=== PATIENT | male | born 1950 | race Caucasian/White ===

== ENCOUNTER 2019-08-31 13:03 | Inpatient (IN) | payer MEDICARE, MEDICAID, SELFPAY ==
[2019-08-31] VITALS (10 sets, daily range): BP systolic 99–140; BP diastolic 62–78; PULSE 86–121; RESP 14–27; TEMP 37.3–39.6; O2SAT 90–100; BMI 29.8
--- NOTE | 2019-08-31 13:26 | XR_ITS ---
WS: [id number] Portable AP upright chest, 08/31/2019 Clinical Data: chest pain Comparison: Portable chest, 12/24/2018. Findings: No nodules, masses or effusions are seen. The heart is normal. The pulmonary vascularity is not increased. No pneumonia or pneumothorax is seen. The aortic arch and descending aorta are tortuo us. The patient has a poor inspiratory effort and there is minimal atelectasis over the surface of th e left diaphragm. XR/XR chest 1V portable [id number] Impression: Atherosclerosis.
[2019-08-31 15:48] LABS: Basophils # 0.1 10^3/uL (0.0-0.1); Basophils % 0.4 %; Eosinophils # 0.1 10^3/uL (0.0-0.8); Eosinophils % 0.7 %; Hematocrit 47.7 % (42.0-52.0); Hemoglobin 15.6 g/dL (11.7-16.6); Lymphocytes # 1.4 10^3/uL (0.8-4.8); Lymphocytes % 11.2 %; Mean Corpuscular HGB Conc 32.7 g/dL (30.0-36.0); Mean Corpuscular Hemoglobin 29.4 pg (28.0-34.0); Monocytes # 1.3 10^3/uL (0.2-0.9); Monocytes % 10.4 %; Neutrophils # 9.4 10^3/uL (1.8-7.7); Neutrophils % 76.8 %; Nucleated Red Blood Cells % 0 %; Platelet Count 171 10^3/cmm (130-400); Red Cell Distribution Width 12.7 % (12.1-15.1); White Blood Count 12.3 10^3/uL (4.0-10.0)
[2019-08-31 16:25] LABS: Alanine Aminotransferase 17 U/L (0-41); Albumin Level 4.3 g/dL (3.5-5.2); Alkaline Phosphatase 83 IU/L (40-130); Anion Gap 18.5 (5-19); Aspartate Amino Transferase 12 U/L (0-40); Blood Urea Nitrogen 18 mg/dL (8-23); Calcium 9.9 mg/dL (8.5-10.5); Carbon Dioxide 24 mmol/L (22-29); Chloride 92 mmol/L (98-107); Globulin 4.1 g/dL (1.3-4.6); Glomerular Filtration Rate 66.6 mL/min (90-130); Glucose 416 mg/dL (65-115); Osmolality Calculated 284 mOsm/kg (285-295); Potassium 4.5 mmol/L (3.5-5.1); Sodium 130 mmol/L (136-145); Total Bilirubin 0.5 mg/dL (0.15-1.2); Total Protein 8.4 g/dL (6.6-8.7)
--- NOTE | 2019-08-31 16:52 | CTR_ITS ---
PROCEDURE INFORMATION: Exam: CT Chest With Contrast Exam date and time: 08/31/2019 5:27 PM Age: 68 years old Clinical indication: Cough and shortness of breath; Prior surgery; Surgery date: 6+ months; Surgery type: Gb, colostomy, urostomy; Patient HX: Intermittent SOB, cough and fever - HX of bladder CA; Additional info: SOB, fever TECHNIQUE: Imaging protocol: Computed tomography of the chest with intravenous contrast. Radiation optimization: All CT scans at this facility use at least one of these dose optimization techniques: automated exposure control; mA and/or kV adjustment per patient size (includes targeted exams where dose is matched to clinical indication); or iterative reconstruction. Contrast material: OMNI 300; Contrast volume: 95 ml; Contrast route: 20G; COMPARISON: No relevant prior studies available. RADIATION DOSE METRICS: Total DLP: 2115.58 mGy-cm FINDINGS: Lungs: There is mild dependent atelectasis at the lung bases. There are findings of centrilobular emphysema in the apical regions. Pleural space: Unremarkable. No pneumothorax. No pleural effusion. Heart: There is moderate atherosclerotic calcification of the coronary arteries. Aorta: Unremarkable. No aortic aneurysm. Lymph nodes: Unremarkable. No enlarged lymph nodes. Bones/joints: Unremarkable. No acute fracture. Soft tissues: Unremarkable. IMPRESSION: No acute findings in the chest. No evidence for metastatic disease. PROCEDURE INFORMATION: Exam: CT Abdomen And Pelvis With Contrast Exam date and time: 08/31/2019 5:27 PM Age: 68 years old Clinical indication: Cough and shortness of breath; Prior surgery; Surgery date: 6+ months; Surgery type: Gb, colostomy, urostomy; Patient HX: Intermittent SOB, cough and fever - HX of bladder CA; Additional info: SOB, fever TECHNIQUE: Imaging protocol: Computed tomography of the abdomen and pelvis with intravenous contrast. Radiation optimization: All CT scans at this facility use at least one of these dose optimization techniques: automated exposure control; mA and/or kV adjustment per patient size (includes targeted exams where dose is matched to clinical indication); or iterative reconstruction. Contrast material: OMNI 300; Contrast volume: 95 ml; Contrast route: 20G; COMPARISON: CT abdomen pelvis w con* [id number] 10/09/2018 6:09:09 PM RADIATION DOSE METRICS: Total DLP: 2115.58 mGy-cm FINDINGS: Liver: There is no focal abnormality within the liver. Gallbladder and bile ducts: There has been a cholecystectomy. Pancreas: The pancreas is normal. Spleen: The spleen is normal. Adrenals: The adrenal glands are normal. Kidneys and ureters: There is some mild cortical scarring in the upper pole of the left kidney which is a change from the previous study and may represent the sequelae of prior pyelonephritis. There is new subtle cortical hypodensity in the in the lower pole of the right kidney. Findings are worrisome for mild focal pyelonephritis. Correlation with clinical findings is suggested. Stomach and bowel: There is a large right parastomal hernia containing loops of bowel without evidence of obstruction or incarceration. This is larger than previous. There is no evidence of colitis/diverticulitis. Appendix: Not identified Intraperitoneal space: There is no evidence of free intraperitoneal fluid. Vasculature: Unremarkable. No abdominal aortic aneurysm. Lymph nodes: There are small periaortic lymph nodes but no adenopathy in the abdomen or pelvis. Bladder: There has been a cystectomy, and there is a right abdominal ureterostomy/ileostomy. Reproductive: Unremarkable as visualized. Bones/joints: The lumbar spine demonstrates mild degenerative changes at multiple levels. Soft tissues: Unremarkable. CT/CT chest abd pel w con* IMPRESSION: 1. Possible pyelonephritis. 2. Parastomal hernia 3. No evidence for metastatic disease. Radiation Dose CTDIVOL = (mGy): DLP = 2115.58~2115.58 (mGy-cm)
[2019-08-31 17:35] LABS: Influenza A by IFA Negative (Negative); Influenza B by IFA Negative (Negative)
[2019-08-31] MEDS: iohexol 300 mg/mL 100 mL Btl IV (17:38)
[2019-08-31 18:05] LABS: Protein Urine Trace (Negative); Urine Appearance Clear (CLEAR); Urine Color Straw (Yellow); pH Urine 7 (5-7)
[2019-08-31 18:06] LABS: Add Urine Microscopic? YES; Bilirubin Urine Neg (NEGATIVE); Blood Urine 2+ (Negative); Glucose Urine UA 4+ (Normal); Ketones Urine Negative (Negative); Leukocyte Esterase Urine Trace (Negative); Nitrate Urine Negative (Negative); Urobilinogen Urine Norm (Negative)
[2019-08-31 18:07] LABS: Add Urine Culture? No; Bacteria Urine 1+; RBC Urine 0-4 /hpf (0-2)
[2019-08-31] MEDS: acetaminophen 325 mg Tablet 650 MG PO (18:13)
--- NOTE | 2019-08-31 19:25 | P.HP_ITS ---
Providers/Chief Complaint Primary Care Provider: Mian Back MD Chief Complaint: sob,cough,fever History of Present Illness Cole Troncoso is a 68 year old male who has history of poorly controlled type 2 diabetes, history of bladder cancer status post urostomy, came in today with chief complaint of nonproductive cough and fever. Patient is stating that his symptoms started about 3 to 4 weeks ago with dry cough, he has been feeling shortness of breath on exertion, he has not noticed swelling of his feet, he is denying orthopnea or PND, he is denying chest pain nausea or vomiting. Yesterday he started feeling more lethargic and spiked fever 102 at home. He does trading in his backyard and see a lot of people. He also have a parrot in his bedroom. He is stating that last time when he took Parrot out of his bedroom his dry cough improved. He quit smoking about 5 to 10 years ago, he lives with his brother. He is denying diarrhea or constipation, or abdominal pain. Recently he has had multiple visits to his PCP who has been trying to adjust his insulin because of persistent hyperglycemia, his his insulin long-acting dose has been increased to 40 units twice a day instead of 25 units twice a day. He was recently given a tetanus shot because of metal laceration to his arm. Diagnostics in the ER revealed sepsis due to pyelonephritis, he was given doxycycline and ceftriaxone. COVID was ordered CT abdomen revealed pyelonephritis with parastomal hernia When I saw him he was experiencing dry cough and because excessive cough urine was draining out of his urostomy bag. There was a tick which fell off from his back when he was in the CT scan, this tick was engorged with blood Review of Systems Const: Reports: fever(s), chills, body aches and fatigue Eyes: Denies: change in vision ENMT: Denies: throat pain Card: Denies: palpitations, syncope, dyspnea on exertion or orthopnea Resp: Reports: dyspnea and non-productive cough; Denies: productive cough GI: Reports: nausea; Denies: abdominal pain, vomiting, diarrhea or constipation : Denies: flank pain or difficulty urinating Musc: Denies: neck pain Skin/Breast: Reports: dry skin; Denies: rash Neuro: Denies: headache(s) Psych: Denies: anxiety Endo: Denies: polyuria Alfredo/Lymph: Denies: easy bruising All/Imm: Denies: urticaria Medications/Allergies Home Medications Medication Instructions Recorded Confirmed Last Taken Type duloxetine 30 mg capsule,delayed 90 mg PO DAILY cap 05/11/19 08/31/19 Unknown History release ipratropium bromide 42 mcg (0.06 2 spray INTRANASAL TID PRN 05/11/19 08/31/19 Unknown History %) nasal spray linagliptin 2.5 mg-metformin 1,000 1 tab PO BID 05/11/19 08/31/19 08/31/19 History mg tablet methenamine hippurate 1 gram tablet 1 gm PO BID 05/11/19 08/31/19 Unknown History ropinirole 4 mg tablet 8 mg PO BID tab 05/11/19 08/31/19 08/31/19 History insulin detemir U-100 100 unit/mL 40 unit SUBCUT BID #15 ml 06/15/19 08/31/19 08/31/19 Rx (3 mL) subcutaneous pen pregabalin 300 mg capsule 300 mg PO .at bedtime #90 cap 06/27/19 08/31/19 08/31/19 Rx hydrocodone-acetaminophen 1 tab PO PRN PRN 08/31/19 08/31/19 Unknown History Allergies Allergy/AdvReac Type Severity Reaction Status Date / Time Penicillins Allergy Unknown Verified 08/01/19 14:03 PFSH Acute PFSH: Medical History Diabetes mellitus History of bladder cancer Hx of intestinal obstruction PETER (obstructive sleep apnea) Surgical History History of cholecystectomy History of esophageal hernia repair History of shoulder surgery History of urostomy Family History Other Hypertension Social History Smoking and tobacco status: former smoker Alcohol intake: never Marital status: / Current occupational status: disabled History of recent travel: No Current gender identity: Male Vitals/I&O/Wt Last Vital Signs Temp 103.2 F H 08/31/19 16:53 Pulse 121 H 08/31/19 18:14 Resp 14 08/31/19 13:49 BP 140/78 08/31/19 18:14 Pulse Ox 94 08/31/19 18:14 Weight last 48 hrs Weight 99.79 kg Physical Exam Narrative: EXAM NARRATIVE: Head to toe examination Patient is in semi-almaraz position Saturating well on room air He has been experiencing dry hacking cough Because of coughing urine is spilling out of urostomy bag S1, S2, sinus tachycardia no signs of heart failure Abdomen is soft, distended, swelling around urostomy bag, spillage of urine around the bag noticed, nontender abdomen Lower extremity no signs of edema gangrene or ulcer EOMI, PERRLA neurologically nonfocal exam Bilateral diminished breath sounds, mild rhonchi at the bases No active respiratory distress Suntanned skin, no erythema marginum noted Face looks flushed Appropriate mood and affect Data : 08/31/19 15:35 08/31/19 15:35 Micro: Microbiology 08/31/19 15:35 Blood Culture - Preliminary Blood SPECIMEN COLLECTED A&P Assessment and plan (1) Sepsis: Sepsis criteria met with fever, tachycardia, leukocytosis, lactic acid has not been obtained in the ER He has been given ceftriaxone Left-sided pyelonephritis most likely source Rule out COVID Normal saline at 75 mL/h CT abdomen did not reveal colitis or ischemic bowel Urine and blood culture sent Doxycycline was added because of psittacosis concern and blood engorged tick that was fell off from his back during CT scan Status: Acute (2) Pyelonephritis: CT abdomen is revealing pyelonephritis No signs of colitis or ischemic bowel Continue antibiotics and fluid resuscitation for now Status: Acute (3) Parastomal hernia: No signs of obstruction or incarceration Dilatation of loops is worsening as compared to his previous imaging around the stoma, this probably is causing more spillage of urine because of change of anatomy around the urostomy bag Might need general surgery consult before discharge Status: Acute (4) Dry cough: Rule out COVID Patient is endorsing improvement of symptoms after removing parrot from his bedroom in the past Currently 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 DuoNeb as needed Status: Acute (5) Poorly controlled diabetes mellitus: I would continue 40 units of long-acting insulin twice a day along moderate dose sliding scale with consistent carb diet Check A1c level Status: Acute Additional A&P Information Consistent carbohydrate diet DVT prophylaxis: Lovenox Full code He will need ICU because of COVID isolation otherwise will need medical floor once it is ruled out Attestations Medical Necessity Statement*: Sepsis: Anticipating stay in the hospital to cross more than 2 midnights currently need IV ceftriaxone for pyonephritis, COVID needs to be ruled out, Because of isolation he will need ICU overnight Time Spent in Patient Care: (>than 50% of time spent in counselling and/or direct pt care on unit) . 60 Coding Level of Care Code Acute Radiology Supervisor for Chg Fwd Diagnoses Sepsis A41.9 Pyelonephritis N12 Parastomal hernia K43.5 Dry cough R05 Poorly controlled diabetes mellitus E11.65
[2019-08-31] MEDS: cefTRIAXone 1,000 MG in sodium chloride 0.9% (plus) 50 ML 100 MG IV (19:45)
[2019-08-31] MEDS: sodium chloride 0.9% 1,000 ML 100 ML IV (19:45)
[2019-08-31] MEDS: doxycycline 100 MG in sodium chloride 0.9% (plus) 100 ML IV (20:28)
--- NOTE | 2019-08-31 23:20 | ED_ITS ---
HPI - SOB/Dyspnea General: Chief Complaint: Shortness of Breath/Dyspnea Stated Complaint: sob,cough,fever Time Seen by Provider: 08/31/19 15:45 Source: patient and family Mode of arrival: ambulatory History of Present Illness: HPI Narrative: 68-year-old gentleman with a history of bladder cancer status post bladder resection and urostomy presents to the emergency department with a 3 or 4-week history of cough. The cough is said to be nonproductive. The cough is bothering him and he coughed several times during my evaluation. He also noticed that he was having a fever yesterday. He denies any contact with anyone with COVID-19, although he has multiple contacts with people daily. He is a former smoker MD elicited complaint: shortness of breath and cough Onset (ago): week(s) (4) Associated symptoms: Reports fever(s); Deny abdominal pain, nausea, palpitations, polydipsia, polyuria or vomiting Review of Systems General: Reports: 10 or more systems reviewed and unremarkable except in HPI and below Const: Reports: fever(s) and chills; Denies: body aches Eyes: Denies: change in vision or blurry vision ENMT: Denies: throat pain, enlarged tonsils, odynophagia, hoarseness, mouth pain or swelling of lips/tongue Card: Denies: palpitations, irregular heart rhythm, edema or swelling of feet/ankles Resp: Reports: dyspnea and non-productive cough; Denies: productive cough GI: Denies: abdominal pain, nausea or vomiting : Denies: flank pain, dysuria, urinary frequency, urinary urgency or urinary hesitancy Musc: Denies: neck pain, back pain or extremity swelling Skin/Breast: Denies: rash, pruritus or erythema Neuro: Denies: headache(s), numbness in extremities or weakness in extremities Endo: Denies: polyuria, polydipsia or tired all the time PFSH ED PFSH: Medical History Diabetes mellitus History of bladder cancer Hx of intestinal obstruction PETER (obstructive sleep apnea) Surgical History History of cholecystectomy History of esophageal hernia repair History of shoulder surgery History of urostomy Family History Other Hypertension Social History Smoking and tobacco status: former smoker Alcohol intake: never Marital status: / Current occupational status: disabled History of recent travel: No Current gender identity: Male Physical Exam Const: COMMON NORMALS: no acute distress, average body habitus, patient oriented x3, no limitations, healthy appearing, alert and well nourished HENMT: COMMON NORMALS: normocephalic, atraumatic and moist oral mucous m embranes HEAD & SCALP: normocephalic and atraumatic Eye: COMMON NORMALS: Equal, round and reactive pupils present, EOMs intact bilaterally, conjunctivae normal and no scleral icterus CONJUNCTIVA: Yes conjunctivae normal PUPIL: Yes Equal, round and reactive pupils present Neck/C-Spine: COMMON NORMALS: full ROM, supple, no meningeal signs, no JVD and No carotid bruits Resp: COMMON NORMALS: normal respiratory effort, No retractions, No use of accessory muscles, clear to auscultation bilaterally and percussion normal AUSCULTATION: clear to auscultation bilaterally PERCUSSION: percussion normal Cardio: COMMON NORMALS: no JVD, regular rate, regular rhythm, S1 normal heart sound present, S2 normal heart sound present, No gallops present (Cardio), No clicks present (Cardio), No murmurs present (Cardio), No rub (Cardio) and Peripheral pulses 2+ throughout RATE: regular rate RHYTHM: regular rhythm HEART SOUNDS: S1 normal heart sound present and S2 normal heart sound present PERIPHERAL PULSES: Peripheral pulses 2+ throughout GI: COMMON NORMALS: Normal to inspection, nondistended, normoactive bowel sounds present, Soft to palpation, non-tender, No hepatosplenomegaly present, no masses and no bruits INSPECTION: Yes GI ostomy present PALPATION: Yes Soft to palpation and Yes No hepatosplenomegaly present OTHER: Urostomy site on his right abdomen. There is leakage of foul-smelling urine : COMMON NORMALS: Yes no CVA tenderness BLADDER/KIDNEY EXAM: Yes no CVA tenderness Back/Pelvis: COMMON NORMALS: no CVA tenderness Extremity: COMMON NORMALS: normal to inspection, full ROM, capillary refill normal, no calf tenderness and no pedal edema Neuro: COMMON NORMALS: patient oriented x3 SENSORIUM/ORIENTATION: Yes alert MENINGEAL SIGNS: Yes no meningeal signs Skin: COMMON NORMALS: no rashes or lesions noted, no wounds, turgor normal, no jaundice, no petechiae and no mottling GENERAL SKIN EXAM: no rashes or lesions noted and turgor normal Course ED course: When the patient was being transferred from his bed to the CT table the central processing technician noted a fully engorged tick fall from the patient's perineal area. Reevaluation(s): Reevaluation #1: Discussed his lab and imaging findings with him. CT scan suggestive of a pyelonephritis. Because of his fever, high risk for COVID, high risk of a tickborne illness he is given a dose of intravenous ceftriaxone and doxycycline and he is going to be admitted. The patient voiced understanding and is in agreement with the plan Time: 19:15 Consultations: Consultation #1: Discussed the patient with Dr. Dewitt, hospitalist. He kindly accepted the patient to his service. Time: 19:23 Vital Signs: Vital signs: Vital Signs Temperature 99.1 F 08/31/19 23:02 Pulse Rate 86 08/31/19 23:02 Respiratory Rate 16 08/31/19 23:02 Blood Pressure 99/62 08/31/19 23:02 Pulse Oximetry 97 08/31/19 23:02 MDM - SOB/Dyspnea MDM Narrative: Medical decision making narrative: Patient who presents with cough and shortness of breath as well as a fever. He was noted to have an engorged tick on his person today in the emergency department. Evaluation is consistent with pyelonephritis. He is being admitted for further evaluation and management. Medical Records: Attestation: I reviewed the patient's medical records. Lab Data: Attestation: I reviewed the patient's lab results. Labs: Lab Results 08/31/19 08/31/19 08/31/19 Range/Units 15:35 15:35 16:41 WBC 12.3 H (4.0-10.0) 10^3/ uL RBC 5.30 (4.1-5.3) 10^6/u L Hgb 15.6 (11.7-16.6) g/dL Hct 47.7 (42.0-52.0) % MCV 90.0 (80-94) fL MCH 29.4 (28.0-34.0) pg MCHC 32.7 (30.0-36.0) g/dL RDW 12.7 (12.1-15.1) % Plt Count 171 (130-400) 10^3/c mm MPV 11.0 H (7.4-10.4) fL Neut % (Auto) 76.8 % Lymph % (Auto) 11.2 % Wallace % (Auto) 10.4 % Eos % (Auto) 0.7 % Baso % (Auto) 0.4 % Neut # (Auto) 9.4 H (1.8-7.7) 10^3/u L Lymph # (Auto) 1.4 (0.8-4.8) 10^3/u L Wallace # (Auto) 1.3 H (0.2-0.9) 10^3/u L Eos # (Auto) 0.1 (0.0-0.8) 10^3/u L Baso # (Auto) 0.1 (0.0-0.1) 10^3/u L Nucleated RBC % (a uto) 0 % Nucleated RBCs # 0.0 /100WBC Sodium 130 L (136-145) mmol/L Potassium 4.5 (3.5-5.1) mmol/L Chloride 92 L (98-107) mmol/L Carbon Dioxide 24 (22-29) mmol/L Anion Gap 18.5 (5-19) BUN 18 (8-23) mg/dL Creatinine 1.1 (0.7-1.2) mg/dL GFR Calculation 66.6 L (90-130) mL/min Glucose 416 H (65-115) mg/dL Calculated Osmolal ity 284 L (285-295) mOsm/k g Calcium 9.9 (8.5-10.5) mg/dL Total Bilirubin 0.5 (0.15-1.2) mg/dL AST 12 (0-40) U/L ALT 17 (0-41) U/L Alkaline Phosphata se 83 (40-130) IU/L Total Protein 8.4 (6.6-8.7) g/dL Albumin 4.3 (3.5-5.2) g/dL Globulin 4.1 (1.3-4.6) g/dL Urine Color (Yellow) Urine Appearance (CLEAR) Urine pH (5-7) Ur Specific Gravit y (1.005-1.030) Urine Protein (Negative) Urine Glucose (UA) (Normal) Urine Ketones (Negative) Urine Blood (Negative) Urine Nitrate (Negative) Urine Bilirubin (NEGATIVE) Urine Urobilinogen (Negative) mg/dL Ur Leukocyte Teodora ase (Negative) Urine RBC (0-2) /hpf Urine WBC (0-5) /hpf Ur Squamous Epith Cells (0-5) Urine Bacteria (NONE) Influenza Type A A g Negative (Negative) Influenza Type B A g Negative (Negative) 08/31/19 Range/Units 17:05 WBC (4.0-10.0) 10^3/ uL RBC (4.1-5.3) 10^6/u L Hgb (11.7-16.6) g/dL Hct (42.0-52.0) % MCV (80-94) fL MCH (28.0-34.0) pg MCHC (30.0-36.0) g/dL RDW (12.1-15.1) % Plt Count (130-400) 10^3/c mm MPV (7.4-10.4) fL Neut % (Auto) % Lymph % (Auto) % Wallace % (Auto) % Eos % (Auto) % Baso % (Auto) % Neut # (Auto) (1.8-7.7) 10^3/u L Lymph # (Auto) (0.8-4.8) 10^3/u L Wallace # (Auto) (0.2-0.9) 10^3/u L Eos # (Auto) (0.0-0.8) 10^3/u L Baso # (Auto) (0.0-0.1) 10^3/u L Nucleated RBC % (a uto) % Nucleated RBCs # /100WBC Sodium (136-145) mmol/L Potassium (3.5-5.1) mmol/L Chloride (98-107) mmol/L Carbon Dioxide (22-29) mmol/L Anion Gap (5-19) BUN (8-23) mg/dL Creatinine (0.7-1.2) mg/dL GFR Calculation (90-130) mL/min Glucose (65-115) mg/dL Calculated Osmolal ity (285-295) mOsm/k g Calcium (8.5-10.5) mg/dL Total Bilirubin (0.15-1.2) mg/dL AST (0-40) U/L ALT (0-41) U/L Alkaline Phosphata se (40-130) IU/L Total Protein (6.6-8.7) g/dL Albumin (3.5-5.2) g/dL Globulin (1.3-4.6) g/dL Urine Color Straw (Yellow) Urine Appearance Clear (CLEAR) Urine pH 7 (5-7) Ur Specific Gravit y 1.010 (1.005-1.030) Urine Protein Trace (Negative) Urine Glucose (UA) 4+ H (Normal) Urine Ketones Negative (Negative) Urine Blood 2+ H (Negative) Urine Nitrate Negative (Negative) Urine Bilirubin Neg (NEGATIVE) Urine Urobilinogen Norm (Negative) mg/dL Ur Leukocyte Teodora ase Trace H (Negative) Urine RBC 0-4 H (0-2) /hpf Urine WBC 5-10 H (0-5) /hpf Ur Squamous Epith Cells None (0-5) Urine Bacteria 1+ H (NONE) Influenza Type A A g (Negative) Influenza Type B A g (Negative) Imaging Data^: CXR: Radiologist's impression: [address] [address] XRay Report Signed Patient: Josiah Troncoso #: [id number] : [id number] Age/Sex: 68 / MADM Date: 08/31/19 Loc: ERRoom/Bed: Attending Dr: Ordering Provider/Ordering MD: Gladys Taylor Date of Service: 08/31/19 Procedure(s): XR chest 1V portable [id number] Accession Number(s): [id number] Report Number: [id number] WS: [id number] Portable AP upright chest, 08/31/2019 Clinical Data: chest pain Comparison: Portable chest, 12/24/2018. Findings: No nodules, masses or effusions are seen. The heart is normal. The pulmonary vascularity is not increased. No pneumonia or pneumothorax is seen. The aortic arch and descending aorta are tortuous. The patient has a poor inspiratory effort and there is minimal atelectasis over the surface of the left diaphragm. XR/XR chest 1V portable [id number] Impression: Atherosclerosis. Dictated By:Anuja Paul MD Signed By:Anuja Paul MDSigned Date/Time:08/31/19 1341 DD/ 1340 CT Abd/Pel: Radiologist's impression: [address] [address] [address] Scan Report Signed Patient: Josiah Troncoso #: [id number] : 1950cct#:[id number] Age/Sex: 68 / MADM Date: 08/31/19 Loc: ERRoom/Bed: Attending Dr: Ordering Provider/Ordering MD: Jonathon Lopez MD, [facility] Date of Service: 08/31/19 Procedure(s): CT chest abd pel w con* Accession Number(s): [id number] Report Number: [id number] PROCEDURE INFORMATION: Exam: CT Chest With Contrast Exam date and time: 08/31/2019 5:27 PM Age: 68 years old Clinical indication: Cough and shortness of breath; Prior surgery; Surgery date: 6+ months; Surgery type: Gb, colostomy, urostomy; Patient HX: Intermittent SOB, cough and fever - HX of bladder CA; Additional info: SOB, fever TECHNIQUE: Imaging protocol: Computed tomography of the chest with intravenous contrast. Radiation optimization: All CT scans at this facility use at least one of these dose optimization techniques: automated exposure control; mA and/or kV adjustment per patient size (includes targeted exams where dose is matched to clinical indication); or iterative reconstruction. Contrast material: OMNI 300; Contrast volume: 95 ml; Contrast route: 20G; COMPARISON: No relevant prior studies available. RADIATION DOSE METRICS: Total DLP: 2115.58 mGy-cm FINDINGS: Lungs: There is mild dependent atelectasis at the lung bases. There are findings of centrilobular emphysema in the apical regions. Pleural space: Unremarkable. No pneumothorax. No pleural effusion. Heart: There is moderate atherosclerotic calcification of the coronary arteries. Aorta: Unremarkable. No aortic aneurysm. Lymph nodes: Unremarkable. No enlarged lymph nodes. Bones/joints: Unremarkable. No acute fracture. Soft tissues: Unremarkable. IMPRESSION: No acute findings in the chest. No evidence for metastatic disease. PROCEDURE INFORMATION: Exam: CT Abdomen And Pelvis With Contrast Exam date and time: 08/31/2019 5:27 PM Age: 68 years old Clinical indication: Cough and shortness of breath; Prior surgery; Surgery date: 6+ months; Surgery type: Gb, colostomy, urostomy; Patient HX: Intermittent SOB, cough and fever - HX of bladder CA; Additional info: SOB, fever TECHNIQUE: Imaging protocol: Computed tomography of the abdomen and pelvis with intravenous contrast. Radiation optimization: All CT scans at this facility use at least one of these dose optimization techniques: automated exposure control; mA and/or kV adjustment per patient size (includes targeted exams where dose is matched to clinical indication); or iterative reconstruction. Contrast material: OMNI 300; Contrast volume: 95 ml; Contrast route: 20G; COMPARISON: CT abdomen pelvis w con* [id number] 10/09/2018 6:09:09 PM RADIATION DOSE METRICS: Total DLP: 2115.58 mGy-cm FINDINGS: Liver: There is no focal abnormality within the liver. Gallbladder and bile ducts: There has been a cholecystectomy. Pancreas: The pancreas is normal. Spleen: The spleen is normal. Adrenals: The adrenal glands are normal. Kidneys and ureters: There is some mild cortical scarring in the upper pole of the left kidney which is a change from the previous study and may represent the sequelae of prior pyelonephritis. There is new subtle cortical hypodensity in the in the lower pole of the right kidney. Findings are worrisome for mild focal pyelonephritis. Correlation with clinical findings is suggested. Stomach and bowel: There is a large right parastomal hernia containing loops of bowel without evidence of obstruction or incarceration. This is larger than previous. There is no evidence of colitis/diverticulitis. Appendix: Not identified Intraperitoneal space: There is no evidence of free intraperitoneal fluid. Vasculature: Unremarkable. No abdominal aortic aneurysm. Lymph nodes: There are small periaortic lymph nodes but no adenopathy in the abdomen or pelvis. Bladder: There has been a cystectomy, and there is a right abdominal ureterostomy/ileostomy. Reproductive: Unremarkable as visualized. Bones/joints: The lumbar spine demonstrates mild degenerative changes at multiple levels. Soft tissues: Unremarkable. CT/CT chest abd pel w con* IMPRESSION: 1. Possible pyelonephritis. 2. Parastomal hernia 3. No evidence for metastatic disease. Radiation Dose CTDIVOL = (mGy): DLP = 2115.58~2115.58 (mGy-cm) Dictated By:Dennis Peralta Signed By:Joon Peraltaigned Date/Time:08/31/191910 DD/ 08 Discharge Plan Discharge Patient Disposition: Admitted As Inpatient Admit Provider: Costa Dewitt Clinical Impression: Sepsis, Pyelonephritis, At high risk for tick borne illness Condition: Stable Interventions: ED Discharge Assessment Last Done: 08/31/19 23:09 ED Charges Last Done: 08/31/19 23:11 Discharge Date/Time: 08/31/19 23:34 Coding Level of Care Code ED Perforating Machine Operator for Osiris Ansari
[2019-09-01] VITALS (94 sets, daily range): BP systolic 74–166; BP diastolic 53–91; PULSE 82–123; RESP 14–34; TEMP 36.8–39.4; O2SAT 88–98
[2019-09-01] MEDS: sodium chloride 0.9% 1,000 ML 75 ML IV ×2 (00:20→09:40)
[2019-09-01 00:55] LABS: Glucose Point of Care 288 mg/dL (70-110)
[2019-09-01] MEDS: enoxaparin 40 mg/0.4 mL Syringe SUBCUT (00:55)
[2019-09-01] MEDS: pregabalin 150 mg Capsule 300 MG PO ×2 (00:56→20:22)
[2019-09-01 00:57] LABS: Estmated Average Glucose 283; Hemoglobin A1C 11.5 % (4.0-6.0)
[2019-09-01] MEDS: acetaminophen 500 mg Tablet PO (01:22)
[2019-09-01] MEDS: sodium chloride 0.9% 500 ML IV (01:22)
[2019-09-01 06:00] LABS: Basophils # 0.1 10^3/uL (0.0-0.1); Basophils % 0.4 %; Eosinophils # 0.1 10^3/uL (0.0-0.8); Eosinophils % 0.6 %; Lymphocytes # 1.7 10^3/uL (0.8-4.8); Mean Corpuscular HGB Conc 32.6 g/dL (30.0-36.0); Mean Corpuscular Hemoglobin 29.7 pg (28.0-34.0); Mean Corpuscular Volume 91.1 fL (80-94); Mean Platelet Volume 10.9 fL (7.4-10.4); Monocytes # 1.3 10^3/uL (0.2-0.9); Monocytes % 8.8 %; Neutrophils # 11.1 10^3/uL (1.8-7.7); Neutrophils % 77.7 %; Nucleated Red Blood Cells % 0 %; Platelet Count 145 10^3/cmm (130-400); Red Blood Count 5.05 10^6/uL (4.1-5.3); Red Cell Distribution Width 12.9 % (12.1-15.1); White Blood Count 14.2 10^3/uL (4.0-10.0)
[2019-09-01 06:25] LABS: Blood Urea Nitrogen 20 mg/dL (8-23); Calcium 9.2 mg/dL (8.5-10.5); Carbon Dioxide 22 mmol/L (22-29); Chloride 99 mmol/L (98-107); Glomerular Filtration Rate 54.9 mL/min (90-130); Glucose 228 mg/dL (65-115); Osmolality Calculated 282 mOsm/kg (285-295); Sodium 134 mmol/L (136-145)
[2019-09-01 07:34] LABS: Procalcitonin 1.35 ng/mL (0-0.5)
[2019-09-01 07:45] LABS: Ferritin 146 ng/mL (30-400); Lactate Dehydrogenase 213 U/L (135-225)
[2019-09-01 07:56] LABS: Glucose Point of Care 255 mg/dL (70-110)
[2019-09-01] MEDS: duloxetine 30 mg Capsule 90 MG PO (09:40)
[2019-09-01] MEDS: cefTRIAXone 1,000 MG in sodium chloride 0.9% (plus) 50 ML 100 MG IV (09:40)
[2019-09-01] MEDS: doxycycline 100 mg Tablet PO ×2 (09:40→17:33)
[2019-09-01] MEDS: ropinirole 2 mg Tablet 8 MG PO ×2 (09:40→17:33)
--- NOTE | 2019-09-01 12:04 | PM.PN ---
Subjective Subjective: Interval history: Chart reviewed, patient febrile throughout the night with a T-max of 103.2, blood pressure stable, tachycardic, on 2 L nasal cannula. Had 1000 mL urine output overnight. Noted slight increase in leukocytosis, slight increase in creatinine to 1.3. COVID-19 testing negative, will discontinue isolation precautions. Medications: Reviewed: Yes Medication Review Details: Active Medications Generic Name Dose Route Start Last Admin Trade Name Freq PRN Reason Stop Dose Admin Acetaminophen 500 mg 09/01/19 01:09 09/01/19 01:22 Tylenol PO 500 mg Q6H PRN Administration MILD PAIN OR INCR EASE TEMP Hydrocodone Bitart /Acetaminophen 1 tab 09/01/19 00:09 York 5-325 Mg PO PRN PRN Pain Albuterol/Ipratrop ium 3 ml 09/01/19 00:09 Duoneb INHALATION Q4H.RESPIRATORY P RN SHORTNESS OF PRIYANKA TH Dextrose 25 ml 09/01/19 00:09 D50w IVP ONCE PRN hypoglycemia prot ocol Protocol Dextrose 50 ml 09/01/19 00:09 D50w IVP PRN PRN hypoglycemia prot ocol Protocol Doxycycline Monohy drate 100 mg 09/01/19 09:00 09/01/19 09:40 Vibramycin PO 100 mg BID RAFAELA Administration Protocol Duloxetine HCl 90 mg 09/01/19 09:00 09/01/19 09:40 Cymbalta PO 90 mg DAILY RAFAELA Administration Enoxaparin Sodium 40 mg 09/01/19 00:09 09/01/19 00:55 Lovenox SUBCUT 40 mg Q24H RAFAELA Administration Glucagon 1 mg 09/01/19 00:09 Glucagen IM ONCE PRN Adult Acute Hypog lycemia Prot. Protocol Sodium Chloride 1,000 mls @ 100 m ls/hr 08/31/19 19:30 08/31/19 19:45 Sodium Chloride 0.9% IV 100 mls/hr .Q10H RAFAELA Administration Ceftriaxone Sodium 1,000 mg/ 50 mls @ 100 mls/ hr 09/01/19 09:00 09/01/19 09:40 Sodium Chloride IV 100 mls/hr DAILY RAFAELA Administration Protocol Dextrose 500 mls @ 100 mls /hr 09/01/19 00:09 D5w IV ONCE PRN Adult Acute Hypog lycemia Prot Protocol Sodium Chloride 1,000 mls @ 75 ml s/hr 09/01/19 00:09 09/01/19 09:40 Sodium Chloride 0.9% IV 75 mls/hr .[id number] RAFAELA Administration Norepinephrine Bit artrate 4 mg 254 mls @ 0 mls/h r 09/01/19 01:15 / Dextrose IV .Q0M RAFAELA Protocol Per Protocol Insulin Aspart 0 unit 09/01/19 00:09 09/01/19 08:14 Novolog SUBCUT 8 unit WM&BEDTIME RAFAELA Administration Protocol Insulin Detemir 40 unit 09/01/19 09:00 09/01/19 09:41 Levemir SUBCUT 40 unit BID RAFAELA Administration Morphine Sulfate 2 mg 08/31/19 19:27 Morphine IVP Q4H PRN SEVERE PAIN Pregabalin 300 mg 09/01/19 00:09 09/01/19 00:56 Lyrica PO 300 mg BEDTIME RAFAELA Administration Ropinirole HCl 8 mg 09/01/19 09:00 09/01/19 09:40 Requip PO 8 mg BID RAFAELA Administration Penicillins Allergy (Verified 08/01/19 14:03) Unknown Vitals/I&O/Wt Last Vital Signs Temp 100.1 F H 09/01/19 07:00 Pulse 111 H 09/01/19 07:48 Resp 18 09/01/19 07:48 BP 132/72 09/01/19 07:00 Pulse Ox 93 09/01/19 07:48 08/31/19 09/01/19 09/01/19 22:59 06:59 14:59 Intake Total 480 / 480 700 / 700 Output Total 1000 / 1000 Balance -520 / -520 700 / 700 Weight last 48 hrs Weight 99.79 kg Physical Exam Const: COMMON NORMALS: no acute distress and patient oriented x3 GENERAL APPEARANCE: cooperative and comfortable ORIENTATION/CONSCIOUSNESS: Yes awake OTHER: -Appears fatigued and somewhat ill-appearing HENMT: COMMON NORMALS: normocephalic, atraumatic, hearing grossly normal bilaterally and moist oral mucous membranes HEAD & SCALP: normocephalic and atraumatic Eye: COMMON NORMALS: Equal, round and reactive pupils present, EOMs intact bilaterally and conjunctivae normal CONJUNCTIVA: Yes conjunctivae normal PUPIL: Yes Equal, round and reactive pupils present Neck/C-Spine: COMMON NORMALS: full ROM GENERAL: Yes normal visual inspection and Yes trachea midline Chest: CHEST: Yes Symmetrical chest wall rise Resp: COMMON NORMALS: normal respiratory effort, No retractions, No use of accessory muscles and clear to auscultation bilaterally EFFORT & INSPECTION: Yes able to speak in complete sentences, Yes symmetric chest movement and Yes tachypneic AUSCULTATION: clear to auscultation bilaterally OTHER: -on 2 L NC Cardio: COMMON NORMALS: regular rhythm, S1 normal heart sound present, S2 normal heart sound present and No murmurs present (Cardio) RATE: tachycardic RHYTHM: regular rhythm HEART SOUNDS: S1 normal heart sound present and S2 normal heart sound present GI: COMMON NORMALS: Normal to inspection, nondistended, normoactive bowel sounds present, Soft to palpation and non-tender PALPATION: Yes Soft to palpation : BLADDER/KIDNEY EXAM: Yes catheter in place Catheter type (Male): urostomy Extremity: COMMON NORMALS: normal to inspection, full ROM, no clubbing, cyanosis or edema and no pedal edema Neuro: COMMON NORMALS: patient oriented x3, moves all extremities, no focal motor deficits and no sensory deficits noted Psych: COMMON NORMALS: mental status grossly normal, Normal thought process present, cooperative, normal affect and speech normal SPEECH: Yes normal speech THOUGHT PROCESS: Normal thought process present Skin: COMMON NORMALS: no rashes or lesions noted, no jaundice, no petechiae and no mottling GENERAL SKIN EXAM: no rashes or lesions noted Data : 09/01/19 05:30 09/01/19 05:30 Micro: Microbiology 08/31/19 15:35 Blood Culture - Preliminary Blood SPECIMEN COLLECTED A&P Assessment and plan (1) Pyelonephritis: -UA indicative of infection -evidence of mild focal R pyelonephritis on CT -f/u urine cx -blood cx: 2/2 bottles positive for GNRs; order repeat set -associated sepsis given tachycardia, leukocytosis, fever, pro-calcitonin elevated (1.35) -continue to monitor vital signs -trend WBC -has urostomy secondary to hx of bladder cancer; monitor urine output -continue Ceftriaxone -on IVF Status: Acute (2) Sepsis: -as noted above Status: Acute Qualifiers: Sepsis acute organ dysfunction status: without acute organ dysfunction Sepsis type: sepsis due to unspecified organism Qualified Code(s): A41.9 - Sepsis, unspecified organism (3) Dry cough: -ongoing respiratory symptoms x 3-4 weeks in addition to fever -COVID-19 testing negative; d/c isolation precautions Status: Acute (4) At high risk for tick borne illness: -engorged tick removed from his back while getting CT done -tick panel ordered -on Doxycycline Status: Acute (5) Acute kidney injury: -JULY superimposed on CKD stage 2 -baseline Cr wnl -likely secondary to dehydration, infection -continue to monitor renal function, avoid nephrotoxins, renally dose meds -on IVF Status: Acute (6) Poorly controlled diabetes mellitus: -hx of IDDM type II, uncontrolled, complicated by peripheral neuropathy and nephropathy -A1c-11.5 -Accuchecks, ISS, hypoglycemia precautions -anticipate hyperglycemia with infection -consistent carb diet as tolerated Status: Chronic (7) PETER (obstructive sleep apnea): Status: Chronic (8) Obesity (BMI 30.0-34.9): Status: Chronic Additional A&P Information -DVT ppx with Lovenox -Dispo: home -Code status: FULL code -ICU care due to sepsis with need for close hemodynamic status monitoring, low threshold for decompensation Attestations Medical Necessity Statement*: Patient requires hospitalization for continued management of pyelonephritis with associated sepsis including IV fluid hydration, broad-spectrum IV antibiotics, COVID-19 testing, close monitoring of hemodynamic status. Time Spent in Patient Care: Greater than 35 minutes (>than 50% of time spent in counselling and/or direct pt care on unit). Coding Level of Care Code Acute Lithograph Press Feeder for g Fwd Exam Comprehensive Diagnoses Pyelonephritis N12 Sepsis A41.9 Sepsis acute organ dysfunction status: without acute organ dysfunction Sepsis type: sepsis due to unspecified organism Dry cough R05 At high risk for tick borne illness Z91.89 Acute kidney injury N17.9 Poorly controlled diabetes mellitus E11.65 PETER (obstructive sleep apnea) G47.33 Obesity (BMI 30.0-34.9) E66.9
[2019-09-01 12:40] LABS: Glucose Point of Care 271 mg/dL (70-110)
[2019-09-01] MEDS: sodium chloride 0.9% 1,000 ML 100 ML IV ×2 (15:30→22:30)
[2019-09-01 16:42] LABS: Glucose Point of Care 265 mg/dL (70-110)
[2019-09-01 19:38] LABS: Glucose Point of Care 259 mg/dL (70-110)
[2019-09-02] VITALS (22 sets, daily range): BP systolic 83–124; BP diastolic 49–75; PULSE 75–85; RESP 16–26; TEMP 36.4–36.8; O2SAT 92–98
[2019-09-02] MEDS: enoxaparin 40 mg/0.4 mL Syringe SUBCUT
[2019-09-02 05:06] LABS: Basophils # 0.1 10^3/uL (0.0-0.1); Basophils % 0.6 %; Eosinophils # 0.2 10^3/uL (0.0-0.8); Eosinophils % 1.4 %; Hematocrit 42.7 % (42.0-52.0); Hemoglobin 13.7 g/dL (11.7-16.6); Lymphocytes # 1.7 10^3/uL (0.8-4.8); Lymphocytes % 15.9 %; Mean Corpuscular HGB Conc 32.1 g/dL (30.0-36.0); Mean Corpuscular Hemoglobin 29.3 pg (28.0-34.0); Mean Corpuscular Volume 91.2 fL (80-94); Mean Platelet Volume 11.6 fL (7.4-10.4); Monocytes # 1.5 10^3/uL (0.2-0.9); Monocytes % 13.9 %; Neutrophils # 7.3 10^3/uL (1.8-7.7); Neutrophils % 67.9 %; Nucleated Red Blood Cells % 0 %; Platelet Count 139 10^3/cmm (130-400); Red Blood Count 4.68 10^6/uL (4.1-5.3); Red Cell Distribution Width 12.9 % (12.1-15.1); White Blood Count 10.8 10^3/uL (4.0-10.0)
[2019-09-02 05:23] LABS: Blood Urea Nitrogen 25 mg/dL (8-23); Calcium 8.6 mg/dL (8.5-10.5); Carbon Dioxide 19 mmol/L (22-29); Chloride 105 mmol/L (98-107); Glomerular Filtration Rate 74.3 mL/min (90-130); Glucose 197 mg/dL (65-115); Osmolality Calculated 282 mOsm/kg (285-295); Sodium 135 mmol/L (136-145)
[2019-09-02 07:26] LABS: Glucose Point of Care 151 mg/dL (70-110)
[2019-09-02] MEDS: cefTRIAXone 1,000 MG in sodium chloride 0.9% (plus) 50 ML 100 MG IV (08:28)
[2019-09-02] MEDS: ropinirole 2 mg Tablet 8 MG PO ×2 (08:29→18:28)
[2019-09-02] MEDS: doxycycline 100 mg Tablet PO ×2 (08:29→18:17)
[2019-09-02] MEDS: duloxetine 30 mg Capsule 90 MG PO (08:29)
[2019-09-02 11:23] LABS: Glucose Point of Care 186 mg/dL (70-110)
[2019-09-02] MEDS: sodium chloride 0.9% 1,000 ML 100 ML IV ×2 (11:38→21:45)
--- NOTE | 2019-09-02 15:38 | PM.PN ---
Subjective Subjective: Interval history: Had 800 mL urine output overnight, afebrile, low to low normal BP, on 2 L NC. Decreasing leukocytosis, improved Cr. Accucheks noted. Has been sitting up in a chair for most of the afternoon, much more alert and engages in conversation much easier today, reports feeling better. Has not required pressor support though BP has been on low normal range. Urine cultures growing gram-negative rods as well as a 2 out of 2 bottles of initial blood culture set, still pending ID and sensitivity. Repeat set of blood cultures is pending. Medications: Reviewed: Yes Medication Review Details: Active Medications Generic Name Dose Route Start Last Admin Trade Name Freq PRN Reason Stop Dose Admin Acetaminophen 500 mg 09/01/19 01:09 09/01/19 01:22 Tylenol PO 500 mg Q6H PRN Administration MILD PAIN OR INCR EASE TEMP Hydrocodone Bitart /Acetaminophen 1 tab 09/01/19 00:09 [place] 5-325 Mg PO PRN PRN Pain Albuterol/Ipratrop ium 3 ml 09/01/19 00:09 Duoneb INHALATION Q4H.RESPIRATORY P RN SHORTNESS OF PRIYANKA TH Dextrose 25 ml 09/01/19 00:09 D50w IVP ONCE PRN hypoglycemia prot ocol Protocol Dextrose 50 ml 09/01/19 00:09 D50w IVP PRN PRN hypoglycemia prot ocol Protocol Doxycycline Monohy drate 100 mg 09/01/19 09:00 09/02/19 08:29 Vibramycin PO 100 mg BID RAFAELA Administration Protocol Duloxetine HCl 90 mg 09/01/19 09:00 09/02/19 08:29 Cymbalta PO 90 mg DAILY RAFAELA Administration Enoxaparin Sodium 40 mg 09/01/19 00:09 09/02/19 00:00 Lovenox SUBCUT 40 mg Q24H RAFAELA Administration Glucagon 1 mg 09/01/19 00:09 Glucagen IM ONCE PRN Adult Acute Hypog lycemia Prot. Protocol Sodium Chloride 1,000 mls @ 100 m ls/hr 08/31/19 19:30 09/02/19 11:38 Sodium Chloride 0.9% IV 100 mls/hr .Q10H RAFAELA Administration Ceftriaxone Sodium 1,000 mg/ 50 mls @ 100 mls/ hr 09/01/19 09:00 09/02/19 08:28 Sodium Chloride IV 100 mls/hr DAILY RAFAELA Administration Protocol Dextrose 500 mls @ 100 mls /hr 09/01/19 00:09 D5w IV ONCE PRN Adult Acute Hypog lycemia Prot Protocol Norepinephrine Bit artrate 4 mg 254 mls @ 0 mls/h r 09/01/19 01:15 / Dextrose IV .Q0M RAFAELA Protocol Per Protocol Insulin Aspart 0 unit 09/01/19 00:09 09/02/19 11:38 Novolog SUBCUT 6 unit WM&BEDTIME RAFAELA Administration Protocol Insulin Detemir 40 unit 09/01/19 09:00 09/02/19 08:29 Levemir SUBCUT 40 unit BID RAFAELA Administration Morphine Sulfate 2 mg 08/31/19 19:27 Morphine IVP Q4H PRN SEVERE PAIN Pregabalin 300 mg 09/01/19 00:09 09/01/19 20:22 Lyrica PO 300 mg BEDTIME RAFAELA Administration Ropinirole HCl 8 mg 09/01/19 09:00 09/02/19 08:29 Requip PO 8 mg BID RAFAELA Administration Penicillins Allergy (Verified 08/01/19 14:03) Unknown Vitals/I&O/Wt Last Vital Signs Temp 97.7 F 09/02/19 08:00 Pulse 82 09/02/19 09:00 Resp 19 H 09/02/19 09:00 BP 83/49 09/02/19 09:00 Pulse Ox 97 09/02/19 09:00 09/02/19 09/02/19 09/02/19 06:59 14:59 22:59 Intake Total 1480 / 1480 Output Total 350 / 2050 Balance -350 / 1857.5 1480 / 1480 Physical Exam Const: COMMON NORMALS: no acute distress and patient oriented x3 GENERAL APPEARANCE: cooperative and comfortable ORIENTATION/CONSCIOUSNESS: Yes awake OTHER: -Appears fatigued and somewhat ill-appearing HENMT: COMMON NORMALS: normocephalic, atraumatic, hearing grossly normal bilaterally and moist oral mucous membranes HEAD & SCALP: normocephalic and atraumatic Eye: COMMON NORMALS: Equal, round and reactive pupils present, EOMs intact bilaterally and conjunctivae normal CONJUNCTIVA: Yes conjunctivae normal PUPIL: Yes Equal, round and reactive pupils present Neck/C-Spine: COMMON NORMALS: full ROM GENERAL: Yes normal visual inspection and Yes trachea midline Chest: CHEST: Yes Symmetrical chest wall rise Resp: COMMON NORMALS: normal respiratory effort, No retractions, No use of accessory muscles and clear to auscultation bilaterally EFFORT & INSPECTION: Yes able to speak in complete sentences, Yes symmetric chest movement and Yes tachypneic AUSCULTATION: clear to auscultation bilaterally OTHER: -on 2 L NC Cardio: COMMON NORMALS: regular rhythm, S1 normal heart sound present, S2 normal heart sound present and No murmurs present (Cardio) RATE: tachycardic RHYTHM: regular rhythm HEART SOUNDS: S1 normal heart sound present and S2 normal heart sound present GI: COMMON NORMALS: Normal to inspection, nondistended, normoactive bowel sounds present, Soft to palpation and non-tender PALPATION: Yes Soft to palpation : BLADDER/KIDNEY EXAM: Yes catheter in place Extremity: COMMON NORMALS: normal to inspection, full ROM, no clubbing, cyanosis or edema and no pedal edema Neuro: COMMON NORMALS: patient oriented x3, moves all extremities, no focal motor deficits and no sensory deficits noted Psych: COMMON NORMALS: mental status grossly normal, Normal thought process present, cooperative, normal affect and speech normal SPEECH: Yes normal speech THOUGHT PROCESS: Normal thought process present Skin: COMMON NORMALS: no rashes or lesions noted, no jaundice, no petechiae and no mottling GENERAL SKIN EXAM: no rashes or lesions noted Data : 09/02/19 03:50 09/02/19 03:50 Micro: Microbiology 08/31/19 17:05 Urine Culture - Preliminary Urine,Clean Catch Gram Negative Rods 09/01/19 22:31 Blood Culture - Preliminary Blood SPECIMEN COLLECTED 09/01/19 22:23 Blood Culture - Preliminary Blood SPECIMEN COLLECTED 08/31/19 15:35 Blood Culture - Preliminary Blood Gram Negative Rods A&P Assessment and plan (1) Pyelonephritis: -UA indicative of infection -evidence of mild focal R pyelonephritis on CT -f/u urine cx: GNRs, pending ID & sensitivity -blood cx: 2/2 bottles positive for GNRs; repeat set pending -associated sepsis given tachycardia, leukocytosis, fever, pro-calcitonin elevated (1.35) -continue to monitor vital signs -trend WBC -has urostomy secondary to hx of bladder cancer; continue to monitor urine output -continue Ceftriaxone -on IVF Status: Acute (2) Sepsis: -as noted above Status: Acute Qualifiers: Sepsis acute organ dysfunction status: without acute organ dysfunction Sepsis type: sepsis due to unspecified organism Qualified Code(s): A41.9 - Sepsis, unspecified organism (3) Dry cough: -ongoing respiratory symptoms x 3-4 weeks in addition to fever -COVID-19 testing negative; d/c isolation precautions Status: Acute (4) At high risk for tick borne illness: -engorged tick removed from his back while getting CT done -tick panel ordered -on Doxycycline (day 2) Status: Acute (5) Acute kidney injury: -JULY superimposed on CKD stage 2 -baseline Cr wnl -likely secondary to dehydration, infection -continue to monitor renal function, avoid nephrotoxins, renally dose meds -on IVF Status: Acute (6) Poorly controlled diabetes mellitus: -hx of IDDM type II, uncontrolled, complicated by peripheral neuropathy and nephropathy -A1c-11.5 -Accuchecks, ISS, hypoglycemia precautions -anticipate hyperglycemia with infection -consistent carb diet as tolerated Status: Chronic (7) PETER (obstructive sleep apnea): Status: Chronic (8) Obesity (BMI 30.0-34.9): Status: Chronic Additional A&P Information -DVT ppx with Lovenox -Dispo: home -Code status: FULL code -continue ICU care due to sepsis with need for close hemodynamic status monitoring, low threshold for decompensation Attestations Medical Necessity Statement*: Patient requires hospitalization for continued treatment of complicated UTI, on IV antibiotics, IV fluid hydration, needs continued monitoring of hemodynamic status, pending culture results. Time Spent in Patient Care: 16 - 35 minutes (>than 50% of time spent in counselling and/or direct pt care on unit). 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
[2019-09-02 16:37] LABS: Glucose Point of Care 154 mg/dL (70-110)
[2019-09-02] MEDS: pregabalin 150 mg Capsule 300 MG PO (19:51)
[2019-09-02 19:57] LABS: Glucose Point of Care 116 mg/dL (70-110)
[2019-09-03] VITALS (13 sets, daily range): BP systolic 101–136; BP diastolic 53–81; PULSE 78–89; RESP 18–27; TEMP 36.4–37.2; O2SAT 92–97
[2019-09-03] MEDS: enoxaparin 40 mg/0.4 mL Syringe SUBCUT (00:05)
[2019-09-03 04:03] LABS: Basophils # 0.1 10^3/uL (0.0-0.1); Basophils % 0.5 %; Eosinophils # 0.2 10^3/uL (0.0-0.8); Eosinophils % 1.9 %; Hematocrit 40.3 % (42.0-52.0); Hemoglobin 12.8 g/dL (11.7-16.6); Lymphocytes # 1.6 10^3/uL (0.8-4.8); Lymphocytes % 15.4 %; Mean Corpuscular HGB Conc 31.8 g/dL (30.0-36.0); Mean Corpuscular Hemoglobin 29.1 pg (28.0-34.0); Mean Corpuscular Volume 91.6 fL (80-94); Mean Platelet Volume 11.6 fL (7.4-10.4); Monocytes # 1.3 10^3/uL (0.2-0.9); Monocytes % 12.4 %; Neutrophils # 7.2 10^3/uL (1.8-7.7); Neutrophils % 69.4 %; Nucleated Red Blood Cells % 0 %; Platelet Count 146 10^3/cmm (130-400); Red Cell Distribution Width 12.8 % (12.1-15.1); White Blood Count 10.3 10^3/uL (4.0-10.0)
[2019-09-03 04:29] LABS: Anion Gap 14.9 (5-19); Blood Urea Nitrogen 25 mg/dL (8-23); Calcium 8.4 mg/dL (8.5-10.5); Carbon Dioxide 20 mmol/L (22-29); Chloride 106 mmol/L (98-107); Glomerular Filtration Rate 83.9 mL/min (90-130); Glucose 72 mg/dL (65-115); Osmolality Calculated 279 mOsm/kg (285-295); Potassium 3.9 mmol/L (3.5-5.1); Sodium 137 mmol/L (136-145)
[2019-09-03 07:35] LABS: Glucose Point of Care 66 mg/dL (70-110)
[2019-09-03] MEDS: sodium chloride 0.9% 1,000 ML 100 ML IV (07:51)
[2019-09-03] MEDS: ropinirole 2 mg Tablet 8 MG PO (09:06)
[2019-09-03] MEDS: duloxetine 30 mg Capsule 90 MG PO (09:06)
[2019-09-03] MEDS: doxycycline 100 mg Tablet PO (09:06)
[2019-09-03] MEDS: cefTRIAXone 1,000 MG in sodium chloride 0.9% (plus) 50 ML 100 MG IV (09:06)
[2019-09-03 09:16] LABS: Glucose Point of Care 139 mg/dL (70-110)
--- NOTE | 2019-09-03 09:36 | PC.SOCIAL ---
IMM Update Pg 2 of IMM given and explained to patient who verbalized understanding. Copy provided.
--- NOTE | 2019-09-03 10:00 | P.DS_ITS ---
Discharge Providers Date of Admission: 08/31/19 19:32 Date of Discharge: September 03, 2019 Attending Provider at Admission: Costa Dewitt MD Attending Provider at Discharge: Dana Lopez MD Primary Care Provider: Mian Back MD Diagnoses at Discharge Discharge Diagnosis (1) Pyelonephritis: Status: Acute Problem details: -UA indicative of infection -evidence of mild focal R pyelonephritis on CT -urine cx: Klebsiella oxytoca, sensitivity noted -blood cx: 2/2 bottles positive for klebsiella oxytoca; repeat set prelim negative -associated sepsis given tachycardia, leukocytosis, fever, pro-calcitonin elevated (1.35). Sepsis now resolved -continue to monitor vital signs; stable -minimal leukocytosis -has urostomy secondary to hx of bladder cancer; continue to monitor urine output -continue Ceftriaxone; will d/c on levaquin -off IVF as oral intake has improved (2) Sepsis: Status: Resolved Qualifiers: Sepsis acute organ dysfunction status: without acute organ dysfunction Sepsis type: sepsis due to unspecified organism Qualified Code(s): A41.9 - Sepsis, unspecified organism (3) Dry cough: Status: Acute Problem details: -ongoing respiratory symptoms x 3-4 weeks in addition to fever -COVID-19 testing negative; d/c isolation precautions (4) At high risk for tick borne illness: Status: Acute Problem details: -engorged tick removed from his back while getting CT done -tick panel pending -has received ppx with Doxycycline (5) Acute kidney injury: Status: Resolved Problem details: -JULY superimposed on CKD stage 2 -baseline Cr wnl -likely secondary to dehydration, infection -continue to monitor renal function, avoid nephrotoxins, renally dose meds. Cr normalized -off IVF (6) Poorly controlled diabetes mellitus: Status: Chronic Problem details: -hx of IDDM type II, uncontrolled, complicated by peripheral neuropathy and nephropathy -A1c-11.5 -Accuchecks, ISS, hypoglycemia precautions. BG well controlled with scheduled insulin -consistent carb diet as tolerated (7) PETER (obstructive sleep apnea): Status: Chronic (8) Obesity (BMI 30.0-34.9): Status: Chronic Reason for Visit Reason for Visit: sob,cough,fever Hospital Course Hospital Course: Patient was admitted to ICU secondary to need for isolation precautions due to an COVID-19 testing as well as need for close hemodynamic status monitoring as he had presented with complicated UTI and associated sepsis as evidenced by leukocytosis, hypotension, tachycardia. With aggressive IV fluid hydration and IV antibiotic treatment he did not require pressor support. COVID-19 testing was negative and he was taken off isolation precautions. He remained in ICU due to borderline low blood pressure readings and need for continued close monitoring of his vital signs. Initial set of blood cultures was positive for gram-negative rods and urine cultures reflect the same. Repeat set of blood cultures has been prelim negative. Leukocytosis has significantly improved, hemoglobin has been stable, renal function has normalized, he has had good urine output consistently. He has a chronic urostomy. He initially required some supplemental oxygen support but this has since been weaned off and he has been stable on room air. A1c is 11.5 and Accu-Cheks were monitored with resumption of his insulin regimen. His blood glucose has been surprisingly controlled. He has been consistently afebrile, blood pressure is much more stable. Due to concern for tickborne illness as he was found to have an engorged tick. He has received enough doxycycline for prophylactic treatment so this will not be continued on discharge. He will need to continue levaquin to complete the treatment course for complicated UTI. He is to continue his insulin regimen as previously and continue to monitor his blood sugar as he was before. He will need to follow-up with his primary care provider within 1 week. He is advised to seek medical attention immediately if he experiences worsening symptoms. Discharge Summary: -Patient to follow-up with primary care physician within 1 week Physical Exam Const: COMMON NORMALS: no acute distress and patient oriented x3 GENERAL APPEARANCE: cooperative and comfortable ORIENTATION/CONSCIOUSNESS: Yes awake HENMT: COMMON NORMALS: normocephalic, atraumatic, hearing grossly normal bilaterally and moist oral mucous membranes HEAD & SCALP: normocephalic and atraumatic Eye: COMMON NORMALS: Equal, round and reactive pupils present, EOMs intact bilaterally and conjunctivae normal CONJUNCTIVA: Yes conjunctivae normal PUPIL: Yes Equal, round and reactive pupils present Neck/C-Spine: COMMON NORMALS: full ROM GENERAL: Yes normal visual inspection and Yes trachea midline Chest: CHEST: Yes Symmetrical chest wall rise Resp: COMMON NORMALS: normal respiratory effort, No retractions, No use of accessory muscles and clear to auscultation bilaterally EFFORT & INSPECTION: Yes able to speak in complete sentences and Yes symmetric chest movement AUSCULTATION: clear to auscultation bilaterally OTHER: -on RA Cardio: COMMON NORMALS: regular rhythm, S1 normal heart sound present, S2 normal heart sound present and No murmurs present (Cardio) RATE: tachycardic RHYTHM: regular rhythm HEART SOUNDS: S1 normal heart sound present and S2 normal heart sound present GI: COMMON NORMALS: Normal to inspection, nondistended, normoactive bowel sounds present, Soft to palpation and non-tender PALPATION: Yes Soft to palpation : BLADDER/KIDNEY EXAM: Yes catheter in place Catheter type (Male): urostomy (chronic) Extremity: COMMON NORMALS: normal to inspection, full ROM, no clubbing, cyanosis or edema and no pedal edema Neuro: COMMON NORMALS: patient oriented x3, moves all extremities, no focal motor deficits and no sensory deficits noted Psych: COMMON NORMALS: mental status grossly normal, Normal thought process present, cooperative, normal affect and speech normal SPEECH: Yes normal speech THOUGHT PROCESS: Normal thought process present Skin: COMMON NORMALS: no rashes or lesions noted, no jaundice, no petechiae and no mottling GENERAL SKIN EXAM: no rashes or lesions noted Discharge Data Data Completed and Pending: Completed Studies During Hospitalization Category Date Time Status CT chest abd pel w con* Urgent Cat Scan 08/31/19 16:52 Completed XR chest 1V renee ble [id number] Urgent Exams 08/31/19 13:26 Completed Pending at discharge Category Date Time Status Blood Culture Sta t Lab 08/31/19 15:36 Results Blood Culture Sta t Lab 09/01/19 22:31 Results Miscellaneous [place] t Stat Lab 09/01/19 00:00 Received Tick Panel Stat Lab 08/31/19 18:30 Received Urine Culture Sta t Lab 09/01/19 12:07 Results Labs from last 24 hours 09/03/19 09/03/19 09/03/19 09:09 07:31 03:06 WBC RBC Hgb Hct MCV MCH MCHC RDW Plt Count MPV Neut % (Auto) Lymph % (Auto) Branch % (Auto) Eos % (Auto) Baso % (Auto) Neut # (Auto) Lymph # (Auto) Branch # (Auto) Eos # (Auto) Baso # (Auto) Nucleated RBC % (a uto) Nucleated RBCs # Sodium 137 Potassium 3.9 Chloride 106 Carbon Dioxide 20 L Anion Gap 14.9 BUN 25 H Creatinine 0.9 GFR Calculation 83.9 L Glucose 72 POC Glucose 139 66 Calculated Osmolal ity 279 L Calcium 8.4 L 09/03/19 09/02/19 09/02/19 03:06 19:50 16:26 WBC 10.3 H RBC 4.40 Hgb 12.8 Hct 40.3 L MCV 91.6 MCH 29.1 MCHC 31.8 RDW 12.8 Plt Count 146 MPV 11.6 H Neut % (Auto) 69.4 Lymph % (Auto) 15.4 Branch % (Auto) 12.4 Eos % (Auto) 1.9 Baso % (Auto) 0.5 Neut # (Auto) 7.2 Lymph # (Auto) 1.6 Branch # (Auto) 1.3 H Eos # (Auto) 0.2 Baso # (Auto) 0.1 Nucleated RBC % (a uto) 0 Nucleated RBCs # 0.0 Sodium Potassium Chloride Carbon Dioxide Anion Gap BUN Creatinine GFR Calculation Glucose POC Glucose 116 154 Calculated Osmolal ity Calcium 09/02/19 11:18 WBC RBC Hgb Hct MCV MCH MCHC RDW Plt Count MPV Neut % (Auto) Lymph % (Auto) Branch % (Auto) Eos % (Auto) Baso % (Auto) Neut # (Auto) Lymph # (Auto) Branch # (Auto) Eos # (Auto) Baso # (Auto) Nucleated RBC % (a uto) Nucleated RBCs # Sodium Potassium Chloride Carbon Dioxide Anion Gap BUN Creatinine GFR Calculation Glucose POC Glucose 186 Calculated Osmolal ity Calcium Vitals: Last Vital Signs Temp 98.1 F 09/03/19 08:00 Pulse 79 09/03/19 08:40 Resp 18 09/03/19 08:40 BP 125/73 09/03/19 08:00 Pulse Ox 96 09/03/19 08:40 Discharge Plan Discharge Patient Disposition: Home, Self-Care Condition: Stable Prescriptions: New levofloxacin 750 mg tablet 750 mg PO DAILY 7 Days Qty: 7 RF: 0 Continued ropinirole 4 mg tablet 8 mg PO BID RF: 0 ipratropium bromide 42 mcg (0.06 %) spray,non-aerosol 2 spray INTRANASAL TID PRN (Reason: UNKNOWN) RF: 0 Jentadueto 2.5-1,000 mg tablet 1 tab PO BID RF: 0 methenamine hippurate 1 gram tablet 1 gm PO BID RF: 0 duloxetine [Cymbalta] 30 mg capsule,delayed release(DR/EC) 90 mg PO DAILY RF: 0 insulin detemir U-100 100 unit/mL (3 mL) insulin pen 40 unit SUBCUT BID Qty: 15 RF: 3 pregabalin [Lyrica] 300 mg capsule 300 mg PO .at bedtime Qty: 90 RF: 3 hydrocodone-acetaminophen 5-325 mg tablet 1 tab PO PRN PRN (Reason: Pain) RF: 0 Discharge Orders: Discharge Order (Routine); Ordered 09/03/19 Ordered By: Dana Lopez Referrals: Mian Back MD [Primary Care Provider] - 4-7 days (Post hospital discharge follow up. Treated for complicated UTI. ) Discharge Diet: Diabetic Discharge Activity: Increase activity as tolerated Patient Instructions: Levofloxacin (By mouth), Meal Planning with Diabetes Exchanges (GEN) Activity Restrictions/Additional Instructions: -Please continue to monitor your blood sugar at home especially before taking insulin. Discharge Attestations Time Spent in Discharge Care*: greater than 30 min Specific Discharge Activities: Specific discharge activities: educating patient, discussing with telehealth case manager/social workers/dc planners, documenti ng/other paperwork and evaluating patient/reviewing data Status at Discharge: Cognitive status at discharge: cognitively intact , Be havioral status at discharge: cooperative , Functional status at discharge: independent ambulation Overall status at discharge: patient is progressing back to baseline Quality Metrics Clinical Quality Measures During this hospital stay, did patient experience: None 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
[2019-09-03 11:28] LABS: Glucose Point of Care 124 mg/dL (70-110)
--- NOTE | 2019-09-03 11:38 | ECG_ITS ---
Measurements Intervals [place] Rate: 80 P: 46 NE: 155 QRS: -41 QRSD: 133 T: 28 QT: 408 QTc: 473 SINUS RHYTHM MARKED LEFT AXIS DEVIATION [QRS AXIS < -30] RIGHT BUNDLE BRANCH BLOCK [120+ ms QRS DURATION, UPRIGHT V1, 40+ ms S IN I/ I/aVL/V4/V5/V6] Compared to ECG 12/24/2018 09:37:13 Left-axis deviation now present Sinus tachycardia no longer present Electronically Signed On 09-03-2019 21:06:23 CDT by Ha Cisneros M.D. [email or web address]
[2019-09-03] MEDS: levoFLOXacin 750 mg Tablet PO (12:41)
--- NOTE | 2019-09-03 15:07 | PC.NURSE ---
DISCHARGE INSTRUCTIONS REVIEWED AND SIGNED BY PATIENT; IV'S REMOVED; PT DRESSED AND SENT HOME WITH RIVERA BAG WITH INSTRUCTIONS TO CHANGE BACK TO OSTOMY BAG TOMORROW; PT INSTRUCTED TO OBTAIN PRESCRIPTION FROM PHARMACY ON WEDNESDAY WITH FIRST DOSE OF LEVAQUIN GIVEN PRIOR TO DISCHARGE; PT TAKEN OUT BY WHEELCHAIR WITH BROTHER WAITING TO TAKE THE PATIENT HOME;
[2019-09-04 12:51] LABS: Lyme AB Screen <0.90 index
[2019-09-05 17:05] LABS: E. Chaffeensis AB IGG <1:64; E. Chaffeensis AB IGM <1:20; RMSF IGG NOT DETECTED; RMSF IGM NOT DETECTED
== END 2019-09-03 14:40 | disposition home or self-care (01) | DRG 872 ==
LOC: ER 15:45 → MEDSURG 19:59 → ICU 22:43
PROVIDERS: Family Medicine; Physician Assistant; Admitting Provider Internal Medicine; PCP Internal Medicine; Visit Provider Family Medicine
DX: A41.9 Sepsis, unspecified organism (principal); N10 Acute pyelonephritis; T83.518A Infection and inflammatory reaction due to other urinary catheter, initial encounter; N17.9 Acute kidney failure, unspecified; E11.65 Type 2 diabetes mellitus with hyperglycemia; Z85.51 Personal history of malignant neoplasm of bladder; Z93.6 Other artificial openings of urinary tract status; Z87.891 Personal history of nicotine dependence; Z79.4 Long term (current) use of insulin; Z20.828 Contact with and (suspected) exposure to other viral communicable diseases; K43.5 Parastomal hernia without obstruction or gangrene; S20.469A Insect bite (nonvenomous) of unspecified back wall of thorax, initial encounter; G47.33 Obstructive sleep apnea (adult) (pediatric); E66.9 Obesity, unspecified; Z68.30 Body mass index [BMI] 30.0-30.9, adult; R05 Cough; Y73.1 Therapeutic (nonsurgical) and rehabilitative gastroenterology and urology devices associated with adverse incidents; Z79.891 Long term (current) use of opiate analgesic
CPT/HCPCS: 12345; 36415; 36416; 71045; 71260; 74177; 80048; 80053; 81001; 82728; 82962; 83036; 83615; 84145; 85025; 86618; 86666; 86757; 87040; 87077; 87086; 87186; 87635; 87804; 93005; 96372; 96375; 99284; J0696; J1650; J1815; J3490; J7030; J7040; J7050; Q9967

== ENCOUNTER 2020-04-27 16:26 | Observation (INO) | payer MEDICARE, MEDICAID, SELFPAY ==
[2020-04-27] VITALS (8 sets, daily range): BP systolic 61–106; BP diastolic 38–65; PULSE 100–122; RESP 14–36; TEMP 36.9–37.3; O2SAT 92–97; BMI 29.1
--- NOTE | 2020-04-27 16:55 | CTR_ITS ---
PROCEDURE INFORMATION: Exam: CT Abdomen And Pelvis With Contrast Exam date and time: 04/27/2020 5:40 PM Age: 69 years old Clinical indication: Abdominal pain; Generalized; Prior surgery; Surgery date: 6+ months; Surgery type: Gb, colostomy, ureterostomy, hernia; Patient HX: C/O abd pain w n/v; Additional info: Vomiting, diarrhea TECHNIQUE: Imaging protocol: Computed tomography of the abdomen and pelvis with contrast. Radiation optimization: All CT scans at this facility use at least one of these dose optimization techniques: automated exposure control; mA and/or kV adjustment per patient size (includes targeted exams where dose is matched to clinical indication); or iterative reconstruction. Contrast material: VISI 320; Contrast volume: 95 ml; Contrast route: INTRAVENOUS (IV); COMPARISON: CT chest abd pel w con* 08/31/2019 5:29 PM RADIATION DOSE METRICS: Total DLP (mGy-cm): 1073.28 FINDINGS: Liver: Normal. No mass. Gallbladder and bile ducts: The gallbladder has been removed. Pancreas: Normal. No ductal dilation. Spleen: Normal. No splenomegaly. Adrenal glands: Normal. No mass. Kidneys and ureters: Lobulated contour of the kidneys may be congenital in nature or represent regions of renal cortical thinning. Stomach and bowel: There are air-fluid levels in the distal colon suggesting mild nonspecific colitis versus other diarrheal illness. Appendix: No evidence of appendicitis. Intraperitoneal space: Unremarkable. No free air. No significant fluid collection. Vasculature: Calcified plaque is present within multiple vascular structures. Lymph nodes: Unremarkable. No enlarged lymph nodes. Urinary bladder: Unremarkable as visualized. Reproductive: Prostatectomy changes. Bones/joints: Unremarkable. No acute fracture. Soft tissues: There are postoperative changes in the ventral abdominal wall. Right lower quadrant ostomy is similar in appearance when compared to the prior study. There are postoperative changes in adjacent large bowel loops. CT/CT abdomen pelvis w con* [id number] IMPRESSION: There are air-fluid levels in the distal colon suggesting mild nonspecific colitis versus other diarrheal illness. Radiation Dose CTDIVOL = (mGy): DLP = 1073.28 (mGy-cm)
[2020-04-27 17:01] LABS: Glucose Point of Care 267 mg/dL (70-110)
[2020-04-27] MEDS: sodium chloride 0.9% 1,000 ML 999 ML IV ×3 (17:07→19:47)
[2020-04-27] MEDS: ondansetron 2 mg/ML SDV 2 mL 4 MG IVP (17:07)
[2020-04-27 17:23] LABS: Basophils # 0.1 10^3/uL (0.0-0.1); Basophils % 0.4 %; Eosinophils # 0.2 10^3/uL (0.0-0.8); Eosinophils % 1.5 %; Hematocrit 51.4 % (42.0-52.0); Lymphocytes # 0.9 10^3/uL (0.8-4.8); Lymphocytes % 6.9 %; Mean Corpuscular HGB Conc 33.1 g/dL (30.0-36.0); Mean Corpuscular Hemoglobin 29.6 pg (28.0-34.0); Mean Corpuscular Volume 89.5 fL (80-94); Monocytes % 7.1 %; Neutrophils # 11.19 10^3/uL (1.8-7.7); Neutrophils % 83.6 %; Nucleated Red Blood Cells % 0 %; Platelet Count 185 10^3/cmm (130-400); Red Blood Count 5.74 10^6/uL (4.1-5.3); Red Cell Distribution Width 12.7 % (12.1-15.1); White Blood Count 13.4 10^3/uL (4.0-10.0)
[2020-04-27 17:28] LABS: Add Urine Microscopic? YES; Bilirubin Urine Neg (Negative); Blood Urine 3+ (Negative); Glucose Urine UA Norm (Normal); Ketones Urine Negative (Negative); Leukocyte Esterase Urine 2+ (Negative); Nitrate Urine Negative (Negative); Protein Urine 1+ (Negative); Urine Appearance Cloudy (CLEAR); Urine Color Yellow (Yellow); Urobilinogen Urine 4 mg/dL (Negative); pH Urine 8 (5-7)
[2020-04-27 17:29] LABS: Add Urine Culture? Yes; Bacteria Urine 2+ /hpf; RBC Urine 0-4 /hpf (0-2); WBC Urine 15-25 /hpf (0-5)
[2020-04-27 17:34] LABS: Alanine Aminotransferase 16 U/L (0-41); Albumin Level 4.2 g/dL (3.5-5.2); Alkaline Phosphatase 88 IU/L (40-130); Aspartate Amino Transferase 13 U/L (0-40); Blood Urea Nitrogen 29 mg/dL (8-23); C Reactive Protein 15.3 mg/L (0.0-4.9); Calcium 9.4 mg/dL (8.5-10.5); Carbon Dioxide 23 mmol/L (22-29); Chloride 96 mmol/L (98-107); Glomerular Filtration Rate 54.7 mL/min (90-130); Glucose 261 mg/dL (65-115); Lactate (Lactic Acid level) 3.7 mmol/L (0.5-2.2); Lipase 31 U/L (13-60); Osmolality Calculated 293 mOsm/kg (285-295); Sodium 134 mmol/L (136-145); Total Bilirubin 0.5 mg/dL (0.15-1.2); Total Protein 7.2 g/dL (6.6-8.7)
[2020-04-27 17:35] LABS: Anion Gap 19.8 (5-19)
[2020-04-27 17:36] LABS: Potassium 4.8 mmol/L (3.5-5.1)
[2020-04-27] MEDS: iodixanol 320 mg/mL 100mL Btl IV (17:52)
--- NOTE | 2020-04-27 18:09 | ED_ITS ---
HPI - Nausea/Vomiting/Diarrhea General: Chief complaint: Abdominal Pain Stated complaint: VOMITING Time Seen by Provider: 04/27/20 16:45 Source: patient and family () Mode of arrival: ambulatory History of Present Illness: HPI Narrative: This pleasant 69-year-old male with a history of diabetes mellitus presents to the emergency department with nausea, vomiting, diarrhea that started last night. He states he has vomited at least 15 times and had at least 15 episodes of diarrhea since it began. He is here to be evaluated because it is not getting any better. The last thing he ate before the symptoms started was some pizza. He denies any fever or abdominal pain. He endorses some dizziness. MD elicited complaint: nausea, vomiting and diarrhea Pertinent past history: abdominal surgery Onset (ago): day(s) (1) Description of vomiting: food contents Description of diarrhea: watery Associated nausea: Yes Associated abdominal pain: No Exacerbating factors: none Relieving factors: none Associated symtoms: Reports dizziness and nausea; Denies altered mental status, anxiety, bloating, change in vision, chest pain, cough, diaphoresis, decreased urine output, dysuria, epistaxis, fatigue, fecal incontinence, fevers/chills, headache(s), anorexia, malaise, myalgias, numbness, palpitations, rash, short of breath, syncope, tenesmus or tinnitus Review of Systems General: Reports: 10 or more systems reviewed and unremarkable except in HPI and below Const: Denies: fatigue, malaise or diaphoresis Eyes: Denies: change in vision ENMT: Denies: tinnitus or epistaxis Card: Denies: chest pain, palpitations or syncope Resp: Denies: dyspnea, productive cough or non-productive cough GI: Reports: nausea; Denies: bloating or fecal incontinence : Denies: dysuria Musc: Denies: neck pain, back pain or extremity swelling Skin/Breast: Denies: rash, pruritus or erythema Neuro: Reports: dizziness; Denies: headache(s) Psych: Denies: anxiety Endo: Denies: polyuria, polydipsia or tired all the time [facility] ED PFSH: Medical History (Updated 04/27/20 @ 21:22 by Jonathon Lopez MD, [facility] [place]) CKD stage 2 due to type 1 diabetes mellitus Diabetes mellitus -insulin dependent History of bladder cancer Hx of intestinal obstruction Obesity (BMI 30.0-34.9) PETER (obstructive sleep apnea) Parastomal hernia Poorly controlled diabetes mellitus -hx of IDDM type II, uncontrolled, complicated by peripheral neuropathy and nephropathy -A1c-11.5 -Accuchecks, ISS, hypoglycemia precautions. BG well controlled with scheduled insulin -consistent carb diet as tolerated Pyelonephritis -UA indicative of infection -evidence of mild focal R pyelonephritis on CT -urine cx: Klebsiella oxytoca, sensitivity noted -blood cx: 2/2 bottles positive for klebsiella oxytoca; repeat set prelim negative -associated sepsis given tachycardia, leukocytosis, fever, pro-calcitonin elevated (1.35). Sepsis now resolved -continue to monitor vital signs; stable -minimal leukocytosis -has urostomy secondary to hx of bladder cancer; continue to monitor urine output -continue Ceftriaxone; will d/c on levaquin -off IVF as oral intake has improved Surgical History History of cholecystectomy History of esophageal hernia repair History of shoulder surgery History of urostomy Family History Other Hypertension Social History Smoking and tobacco status: former smoker Alcohol intake: never Marital status: / Current occupational status: disabled History of recent travel: No Current gender identity: Male Physical Exam Const: COMMON NORMALS: no acute distress, average body habitus, patient oriented x3, no limitations, alert and well nourished EXAM LIMITATIONS: no altered mental status GENERAL APPEARANCE: lethargic and ill appearing ORIENTATION/CONSCIOUSNESS: Yes lethargic HENMT: COMMON NORMALS: normocephalic, atraumatic and moist oral mucous membranes HEAD & SCALP: normocephalic and atraumatic Neck/C-Spine: COMMON NORMALS: no meningeal signs and no JVD Resp: COMMON NORMALS: normal respiratory effort, No retractions, No use of accessory muscles, clear to auscultation bilaterally and percussion normal AUSCULTATION: clear to auscultation bilaterally PERCUSSION: percussion normal Cardio: COMMON NORMALS: no JVD, regular rhythm, S1 normal heart sound present, S2 normal heart sound present, No gallops present (Cardio), No clicks present (Cardio), No murmurs present (Cardio), No rub (Cardio) and Peripheral pulses 2+ throughout RATE: tachycardic RHYTHM: regular rhythm HEART SOUNDS: S1 normal heart sound present and S2 normal heart sound present PERIPHERAL PULSES: Peripheral pulses 2+ throughout GI: COMMON NORMALS: Normal to inspection, nondistended, normoactive bowel sounds present, Soft to palpation, non-tender, No hepatosplenomegaly present, no masses and no bruits PALPATION: Yes Soft to palpation and Yes No hepatosplenomegaly present Extremity: COMMON NORMALS: normal to inspection, full ROM, capillary refill normal, no calf tenderness and no pedal edema Neuro: COMMON NORMALS: patient oriented x3 SENSORIUM/ORIENTATION: Yes alert and Yes lethargic MENINGEAL SIGNS: Yes no meningeal signs Skin: COMMON NORMALS: no rashes or lesions noted, no wounds, turgor normal, no jaundice, no petechiae and no mottling GENERAL SKIN EXAM: no rashes or lesions noted and turgor normal Course Reevaluation(s): Reevaluation #1: He feels better than he did when he first got here. He is still hypotensive although his blood pressure is improving. It is currently 86/61 with a MAP of 69. He is on a second liter of normal saline. Time: 18:09 Reevaluation #2: Discussed his labs and imaging findings with him. He is in shock, either hypovolemic or septic. He is responding to fluids. Advised that he be admitted for hydration and antibiotics. He voiced understanding and all questions answered. Time: 19:15 Consultations: Consultation #1: Discussed the patient with Dr. Haley, [facility]. He kindly accepted the patient to his service Time: 19:25 Vital Signs: Vital signs: Vital Signs Temperature 98.4 F 04/27/20 17:09 Pulse Rate 100 04/27/20 20:50 Respiratory Rate 18 04/27/20 20:50 Blood Pressure 104/63 04/27/20 20:50 Pulse Oximetry 97 04/27/20 20:50 MDM - Nausea/Vomiting/Diarrhea MDM Narrative: Medical decision making narrative: 69-year-old diabetic gentleman who presents to the emergency department with nausea, vomiting and diarrhea. He was hypotensive on arrival and required IV fluid hydration. As part of his work-up he appears to have a UTI, colitis on CT scan, and he is in shock-either septic or hypovolemic from the vomiting and diarrhea. Lactic acid is also elevated. He will be admitted to the hospital for further evaluation and management. Medical Records: Attestation: I reviewed the patient's medical records. Lab Data: Attestation: I reviewed the patient's lab results. Labs: Lab Results 04/27/20 04/27/20 04/27/20 Range/Units 16:56 16:58 16:58 WBC 13.4 H (4.0-10.0) 10^3/ uL RBC 5.74 H (4.1-5.3) 10^6/u L Hgb 17.0 H (11.7-16.6) g/dL Hct 51.4 (42.0-52.0) % MCV 89.5 (80-94) fL MCH 29.6 (28.0-34.0) pg MCHC 33.1 (30.0-36.0) g/dL RDW 12.7 (12.1-15.1) % Plt Count 185 (130-400) 10^3/c mm MPV 11.0 H (7.4-10.4) fL Neut % (Auto) 83.6 % Lymph % (Auto) 6.9 % Stewart % (Auto) 7.1 % Eos % (Auto) 1.5 % Baso % (Auto) 0.4 % Neut # (Auto) 11.19 H (1.8-7.7) 10^3/u L Lymph # (Auto) 0.9 (0.8-4.8) 10^3/u L Stewart # (Auto) 1.0 H (0.2-0.9) 10^3/u L Eos # (Auto) 0.2 (0.0-0.8) 10^3/u L Baso # (Auto) 0.1 (0.0-0.1) 10^3/u L Nucleated RBC % (a uto) 0 % Nucleated RBCs # 0.0 /100WBC Sodium 134 L (136-145) mmol/L Potassium 4.8 (3.5-5.1) mmol/L Chloride 96 L (98-107) mmol/L Carbon Dioxide 23 (22-29) mmol/L Anion Gap 19.8 H (5-19) BUN 29 H (8-23) mg/dL Creatinine 1.3 H (0.7-1.2) mg/dL GFR Calculation 54.7 L (90-130) mL/min Glucose 261 H (65-115) mg/dL POC Glucose 267 H (70-110) mg/dL Calculated Osmolal ity 293 (285-295) mOsm/k g Lactate (0.5-2.2) mmol/L Calcium 9.4 (8.5-10.5) mg/dL Total Bilirubin 0.5 (0.15-1.2) mg/dL AST 13 (0-40) U/L ALT 16 (0-41) U/L Alkaline Phosphata se 88 (40-130) IU/L C-Reactive Protein 15.3 H (0.0-4.9) mg/L Total Protein 7.2 (6.6-8.7) g/dL Albumin 4.2 (3.5-5.2) g/dL Globulin 3.0 (1.3-4.6) g/dL Lipase 31 (13-60) U/L Urine Color (Yellow) Urine Appearance (CLEAR) Urine pH (5-7) Ur Specific Gravit y (1.005-1.030) Urine Protein (Negative) Urine Glucose (UA) (Normal) Urine Ketones (Negative) Urine Blood (Negative) Urine Nitrate (Negative) Urine Bilirubin (Negative) Urine Urobilinogen (Negative) mg/dL Ur Leukocyte Teodora ase (Negative) Urine RBC (0-2) /hpf Urine WBC (0-5) /hpf Ur Squamous Epith Cells (0-5) /hpf Amorphous Sediment Urine Bacteria (NONE) /hpf SARS-CoV-2 Ag (Rap id) (Negative) 04/27/20 04/27/20 04/27/20 Range/Units 16:58 17:04 17:40 WBC (4.0-10.0) 10^3/ uL RBC (4.1-5.3) 10^6/u L Hgb (11.7-16.6) g/dL Hct (42.0-52.0) % MCV (80-94) fL MCH (28.0-34.0) pg MCHC (30.0-36.0) g/dL RDW (12.1-15.1) % Plt Count (130-400) 10^3/c mm MPV (7.4-10.4) fL Neut % (Auto) % Lymph % (Auto) % Stewart % (Auto) % Eos % (Auto) % Baso % (Auto) % Neut # (Auto) (1.8-7.7) 10^3/u L Lymph # (Auto) (0.8-4.8) 10^3/u L Stewart # (Auto) (0.2-0.9) 10^3/u L Eos # (Auto) (0.0-0.8) 10^3/u L Baso # (Auto) (0.0-0.1) 10^3/u L Nucleated RBC % (a uto) % Nucleated RBCs # /100WBC Sodium (136-145) mmol/L Potassium (3.5-5.1) mmol/L Chloride (98-107) mmol/L Carbon Dioxide (22-29) mmol/L Anion Gap (5-19) BUN (8-23) mg/dL Creatinine (0.7-1.2) mg/dL GFR Calculation (90-130) mL/min Glucose (65-115) mg/dL POC Glucose (70-110) mg/dL Calculated Osmolal ity (285-295) mOsm/k g Lactate 3.7 H (0.5-2.2) mmol/L Calcium (8.5-10.5) mg/dL Total Bilirubin (0.15-1.2) mg/dL AST (0-40) U/L ALT (0-41) U/L Alkaline Phosphata se (40-130) IU/L C-Reactive Protein (0.0-4.9) mg/L Total Protein (6.6-8.7) g/dL Albumin (3.5-5.2) g/dL Globulin (1.3-4.6) g/dL Lipase (13-60) U/L Urine Color Yellow (Yellow) Urine Appearance Cloudy (CLEAR) Urine pH 8 H (5-7) Ur Specific Gravit y 1.010 (1.005-1.030) Urine Protein 1+ H (Negative) Urine Glucose (UA) Norm (Normal) Urine Ketones Negative (Negative) Urine Blood 3+ H (Negative) Urine Nitrate Negative (Negative) Urine Bilirubin Neg (Negative) Urine Urobilinogen 4 H (Negative) mg/dL Ur Leukocyte Teodora ase 2+ H (Negative) Urine RBC 0-4 H (0-2) /hpf Urine WBC 15-25 H (0-5) /hpf Ur Squamous Epith Cells None (0-5) /hpf Amorphous Sediment Not Reportable Urine Bacteria 2+ H (NONE) /hpf SARS-CoV-2 Ag (Rap id) Negative (Negative) Imaging Data^: CT Abd/Pel: Attestation: I personally reviewed and interpreted this imaging study as follows: Radiologist's impression: [address] [address] [address] Scan Report Signed Patient: Josiah Troncoso #: [id number] : 1Acct#:[id number] Age/Sex: 69 / MADM Date: 04/27/20 Loc: ERRoom/Bed: Attending Dr: Ordering Provider/Ordering MD: Jonathon Lopez MD, [facility] [place] Date of Service: 04/27/20 Procedure(s): CT abdomen pelvis w con* [id number] Accession Number(s): [id number] Report Number: [id number] PROCEDURE INFORMATION: Exam: CT Abdomen And Pelvis With Contrast Exam date and time: 04/27/2020 5:40 PM Age: 69 years old Clinical indication: Abdominal pain; Generalized; Prior surgery; Surgery date: 6+ months; Surgery type: Gb, colostomy, ureterostomy, hernia; Patient HX: C/O abd pain w n/v; Additional info: Vomiting, diarrhea TECHNIQUE: Imaging protocol: Computed tomography of the abdomen and pelvis with contrast. Radiation optimization: All CT scans at this facility use at least one of these dose optimization techniques: automated exposure control; mA and/or kV adjustment per patient size (includes targeted exams where dose is matched to clinical indication); or iterative reconstruction. Contrast material: VISI 320; Contrast volume: 95 ml; Contrast route: INTRAVENOUS (IV); COMPARISON: CT chest abd pel w con* 08/31/2019 5:29 PM RADIATION DOSE METRICS: Total DLP (mGy-cm): 1073.28 FINDINGS: Liver: Normal. No mass. Gallbladder and bile ducts: The gallbladder has been removed. Pancreas: Normal. No ductal dilation. Spleen: Normal. No splenomegaly. Adrenal glands: Normal. No mass. Kidneys and ureters: Lobulated contour of the kidneys may be congenital in nature or represent regions of renal cortical thinning. Stomach and bowel: There are air-fluid levels in the distal colon suggesting mild nonspecific colitis versus other diarrheal illness. Appendix: No evidence of appendicitis. Intraperitoneal space: Unremarkable. No free air. No significant fluid collection. Vasculature: Calcified plaque is present within multiple vascular structures. Lymph nodes: Unremarkable. No enlarged lymph nodes. Urinary bladder: Unremarkable as visualized. Reproductive: Prostatectomy changes. Bones/joints: Unremarkable. No acute fracture. Soft tissues: There are postoperative changes in the ventral abdominal wall. Right lower quadrant ostomy is similar in appearance when compared to the prior study. There are postoperative changes in adjacent large bowel loops. CT/CT abdomen pelvis w con* [id number] IMPRESSION: There are air-fluid levels in the distal colon suggesting mild nonspecific colitis versus other diarrheal illness. Radiation Dose CTDIVOL = (mGy): DLP = 1073.28 (mGy-cm) Dictated By:Nicki Machado MD Signed By:Nicki Machado MDSigned Date/Time:04/27/202002 DD/ 01 Critical Care Time Critical Care Time: Critical Care Time: Yes Total Critical Care Time: 60 Attestation: This case had a high probability of a clinically significant, sudden, or life threatening deterioration of this patient's condition which required my full and direct attention, intervention and personal management. Discharge Plan Discharge Patient Disposition: Admitted As Inpatient Admit Provider: Homar Haley Clinical Impression: Enterocolitis Sepsis Qualifiers: Sepsis type: sepsis due to unspecified organism Sepsis acute organ dysfunction status: with acute organ dysfunction Severe sepsis acute organ dysfunction type: acute renal failure Acute renal failure type: unspecified Severe sepsis shock status: with septic shock Qualified Code(s): A41.9 - Sepsis, unspecified organism Acute renal failure Qualifiers: Acute renal failure type: unspecified Qualified Code(s): N17.9 - Acute kidney failure, unspecified UTI (urinary tract infection) Qualifiers: Urinary tract infection type: acute cystitis Hematuria presence: without hematuria Qualified Code(s): N30.00 - Acute cystitis without hematuria Condition: Stable Coding Level of Care Code ED Fuselage Framer for Osiris [facility]ari
[2020-04-27] MEDS: cefepime 2,000 MG in sodium chloride 0.9% (plus) 50 ML 100 MG IV (18:17)
[2020-04-27 18:18] LABS: SARS Covid-2 Antigen Negative (Negative)
--- NOTE | 2020-04-27 20:10 | PC.NURSE ---
patients urostomy bag drained by nurse.
--- NOTE | 2020-04-27 20:20 | PC.NURSE ---
patient given water with hcp approval.
--- NOTE | 2020-04-27 20:34 | P.HP_ITS ---
Providers/Chief Complaint Primary Care Provider: Mian Back MD Chief Complaint: VOMITING History of Present Illness Cole Troncoso is a 69 year old male with a history of bladder cancer status post urostomy, diabetes presented to the emergency department with a complaint of nausea vomiting and diarrhea onset this morning. Patient states he ate pizza prior to his symptoms. He denied any abdominal pain. He denied any blood in the stool or hematemesis. He describes a watery diarrhea. Blood work in the emergency department is notable for leukocytosis, elevated serum creatinine above baseline indicating acute renal failure. Patient was hypotensive in the ED. His blood pressure responded to IV normal saline bolus. His systolic blood pressure has improved from the 70s to the 90s. Patient given a dose of IV cefepime. He is hospitalized for further management. Review of Systems Narrative: Patient denied any fever, he denied any headache, he denied any chest pain or shortness of breath or cough. Except as documented, all other systems reviewed and negative. Medications/Allergies Home Medications Medication Instructions Recorded Confirmed Last Taken Type ipratropium bromide 42 mcg (0.06 2 spray INTRANASAL TID PRN 05/11/19 04/27/20 Unknown History %) nasal spray methenamine hippurate 1 gram tablet 1 gm PO BID 05/11/19 04/27/20 Unknown H istory insulin detemir U-100 100 unit/mL 40 unit SUBCUT BID #15 ml 06/15/19 04/27/20 04/26/20 Rx (3 mL) subcutaneous pen linagliptin 2.5 mg-metformin 1,000 1 tab PO BID #180 tab 09/13/19 04/27/20 04/26/20 Rx mg tablet pregabalin 300 mg capsule 300 mg PO .at bedtime #90 cap 09/13/19 04/27/20 04/27/20 Rx ropinirole 4 mg tablet 8 mg PO BID #180 tab 04/15/20 04/27/20 04/26/20 Rx Allergies Allergy/AdvReac Type Severity Reaction Status Date / Time Penicillins Allergy Unknown Verified 12/26/19 16:16 PFSH Acute PFSH: Medical History (Updated 04/27/20 @ 21:22 by Jonathon Lopez MD, [facility] [place]) CKD stage 2 due to type 1 diabetes mellitus Diabetes mellitus -insulin dependent History of bladder cancer Hx of intestinal obstruction Obesity (BMI 30.0-34.9) PETER (obstructive sleep apnea) Parastomal hernia Poorly controlled diabetes mellitus -hx of IDDM type II, uncontrolled, complicated by peripheral neuropathy and nephropathy -A1c-11.5 -Accuchecks, ISS, hypoglycemia precautions. BG well controlled with scheduled insulin -consistent carb diet as tolerated Pyelonephritis -UA indicative of infection -evidence of mild focal R pyelonephritis on CT -urine cx: Klebsiella oxytoca, sensitivity noted -blood cx: 2/2 bottles positive for klebsiella oxytoca; repeat set prelim negative -associated sepsis given tachycardia, leukocytosis, fever, pro-calcitonin elevated (1.35). Sepsis now resolved -continue to monitor vital signs; stable -minimal leukocytosis -has urostomy secondary to hx of bladder cancer; continue to monitor urine output -continue Ceftriaxone; will d/c on levaquin -off IVF as oral intake has improved Surgical History History of cholecystectomy History of esophageal hernia repair History of shoulder surgery History of urostomy Family History Other Hypertension Social History Smoking and tobacco status: former smoker Alcohol intake: never Marital status: / Current occupational status: disabled History of recent travel: No Current gender identity: Male Vitals/I&O/Wt Last Vital Signs Temp 98.4 F 04/27/20 17:09 Pulse 106 H 04/27/20 19:59 Resp 20 H 04/27/20 19:00 BP 91/54 04/27/20 19:59 Pulse Ox 95 04/27/20 19:59 04/27/20 04/27/20 04/27/20 06:59 14:59 22:59 Intake Total 2049 Balance 2049 Weight last 48 hrs Weight 97.522 kg Physical Exam Const: COMMON NORMALS: no acute distress, patient oriented x3, healthy appearing and alert HENMT: COMMON NORMALS: normocephalic, atraumatic, moist oral mucous membranes and oropharynx normal Eye: COMMON NORMALS: Equal, round and reactive pupils present, EOMs intact bilaterally, conjunctivae normal, no scleral icterus and no papilledema Neck/C-Spine: COMMON NORMALS: no lymphadenopathy, no JVD and Thyroid normal Lymph: LYMPHATIC: no lymphadenopathy noted Chest: COMMONS NORMALS: normal inspection of the chest and normal palpation of entire chest wall Resp: COMMON NORMALS: normal respiratory effort, No retractions, No use of accessory muscles and clear to auscultation bilaterally Cardio: COMMON NORMALS: regular rate, regular rhythm, S1 normal heart sound present, S2 normal heart sound present and No murmurs present (Cardio) GI: COMMON NORMALS: Normal to inspection, nondistended, normoactive bowel sounds present, Soft to palpation, non-tender, No hepatosplenomegaly present and no bruits OTHER: Urostomy-right lower quadrant : COMMON NORMALS: Yes no CVA tenderness Back/Pelvis: COMMON NORMALS: no thoracic nor lumbar tenderness and thoraco- lumbar ROM normal Extremity: COMMON NORMALS: normal to inspection, capillary refill normal, no clubbing, cyanosis or edema, no calf tenderness and no pedal edema Neuro: COMMON NORMALS: patient oriented x3, CN's II-XII intact bilaterally and no focal motor deficits Psych: COMMON NORMALS: mental status grossly normal, Normal thought process present, cooperative, normal affect and speech normal Skin: COMMON NORMALS: no rashes or lesions noted, turgor normal and no jaundice Data : 04/28/20 04:01 04/28/20 04:01 Micro: Microbiology 04/27/20 18:25 Blood Culture - Preliminary Blood SPECIMEN COLLECTED 04/27/20 17:18 Blood Culture - Preliminary Blood SPECIMEN COLLECTED A&P Assessment and plan (1) Enterocolitis: Status: Acute (2) Hypovolemic shock: Status: Acute (3) Acute renal failure: Status: Acute (4) UTI (urinary tract infection): Status: Acute (5) Diabetes mellitus: Status: Acute Qualifiers: Diabetes mellitus complication status: without complication Diabetes mellitus fci insulin use: with fci use Diabetes mellitus type: type 2 Qualified Code(s): E11.9 - Type 2 diabetes mellitus without complications; Z79.4 - 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 We will aggressively hydrate with IV normal saline. IV NS boluses as needed for hypotension. Monitor electrolytes and replete as needed. We will start IV ciprofloxacin and Flagyl. IV ciprofloxacin should also cover for UTI. Follow blood cultures and urine culture Monitor CBC blood chemistry Clear liquid diet. Hold Metformin Insulin sliding scale for glucose management. Attestations Medical Necessity Statement*: Patient presented with hypovolemic shock secondary to vomiting and diarrhea. Patient will need to be hospitalized and aggressively hydrated with IV fluid. He is expected to spend less than 2 midnights. 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
[2020-04-27] MEDS: sodium chloride 0.9% 1,000 ML 125 ML IV (22:15)
[2020-04-27] MEDS: ciprofloxacin 400 MG/200 ML PREMIX 200 MG IV (22:15)
[2020-04-27] MEDS: metroNIDAZOLE IV 500 MG/100 ML PREMIX 100 MG IV (22:15)
[2020-04-27] MEDS: enoxaparin 40 mg/0.4 mL Syringe SUBCUT (22:16)
[2020-04-28] VITALS: BP 96/60; PULSE 102; RESP 22; TEMP 37.6; O2SAT 94
[2020-04-28] MEDS: ropinirole 2 mg Tablet 8 MG PO (01:45)
[2020-04-28 04:00] VITALS: BP 98/61; PULSE 92; RESP 20; TEMP 37.7; O2SAT 96
[2020-04-28] MEDS: metroNIDAZOLE IV 500 MG/100 ML PREMIX 100 MG IV ×2 (04:07→12:15)
[2020-04-28 04:19] LABS: Basophils % 0.4 %; Eosinophils # 0.1 10^3/uL (0.0-0.8); Eosinophils % 1.5 %; Hemoglobin 13.8 g/dL (11.7-16.6); Lymphocytes # 0.9 10^3/uL (0.8-4.8); Lymphocytes % 10.5 %; Mean Corpuscular HGB Conc 32.9 g/dL (30.0-36.0); Mean Corpuscular Hemoglobin 29.6 pg (28.0-34.0); Mean Corpuscular Volume 89.9 fL (80-94); Monocytes # 0.9 10^3/uL (0.2-0.9); Monocytes % 10.4 %; Neutrophils # 6.29 10^3/uL (1.8-7.7); Neutrophils % 76.8 %; Nucleated Red Blood Cells % 0 %; Platelet Count 145 10^3/cmm (130-400); Red Blood Count 4.67 10^6/uL (4.1-5.3); White Blood Count 8.2 10^3/uL (4.0-10.0)
[2020-04-28 04:50] LABS: Procalcitonin 0.92 ng/mL (0-0.5)
[2020-04-28 05:00] LABS: Anion Gap 14.2 (5-19); Blood Urea Nitrogen 27 mg/dL (8-23); Calcium 7.9 mg/dL (8.5-10.5); Carbon Dioxide 22 mmol/L (22-29); Chloride 103 mmol/L (98-107); Glucose 200 mg/dL (65-115); Magnesium 1.4 mg/dL (1.7-2.3); Osmolality Calculated 291 mOsm/kg (285-295); Phosphorus 3.4 mg/dL (2.5-4.5); Potassium 4.2 mmol/L (3.5-5.1); Sodium 135 mmol/L (136-145)
[2020-04-28 06:31] LABS: Glucose Point of Care 194 mg/dL (70-110)
[2020-04-28 07:17] VITALS: BP 95/56; PULSE 91; RESP 18; TEMP 37.7; O2SAT 92
[2020-04-28] MEDS: sodium chloride 0.9% 1,000 ML 125 ML IV (07:45)
[2020-04-28] MEDS: ciprofloxacin 400 MG/200 ML PREMIX 200 MG IV (08:10)
[2020-04-28 10:47] LABS: Glucose Point of Care 237 mg/dL (70-110)
[2020-04-28 11:11] VITALS: BP 117/72; PULSE 84; RESP 18; TEMP 36.9; O2SAT 97
[2020-04-28 15:17] VITALS: BP 142/85; PULSE 101; RESP 17; TEMP 36.9; O2SAT 96
[2020-04-28 15:44] VITALS: BP 142/85; PULSE 101; RESP 17; TEMP 36.9; O2SAT 96
--- NOTE | 2020-04-29 13:02 | P.DS_ITS ---
Discharge Providers Date of Admission: 04/27/20 20:28 Date of Discharge: April 29, 2020 Attending Provider at Admission: Homar Haley Attending Provider at Discharge: Amor Mendes MD Primary Care Provider: Mian Back MD Diagnoses at Discharge Discharge Diagnosis (1) Enterocolitis: (2) Hypovolemic shock: Status: Resolved (3) Acute renal failure: Qualifiers: Acute renal failure type: unspecified Qualified Code(s): N17.9 - Acute kidney failure, unspecified (4) UTI (urinary tract infection): Status: Resolved (5) Diabetes mellitus: Permanent problem details: -insulin dependent Qualifiers: Diabetes mellitus complication status: without complication Diabetes mellitus mcc insulin use: with manager intermediate use Diabetes mellitus type: type 2 Qualified Code(s): E11.9 - Type 2 diabetes mellitus without complications; Z79.4 - prison (current) use of insulin Reason for Visit Reason for Visit: VOMITING Hospital Course Hospital Course This is a 69-year-old male who presented to the ER with nausea vomiting. He was diagnosed with enterocolitis. He does have a colostomy bag. He was placed on IV antibiotics. Given IV fluids. Given antiemetics. His labs were watched. Overnight patient symptoms improved. He was discharged on oral antibiotics he was also given oral Zofran. He was discharged in stable condition. The patient was also noted to have some low blood pressure as well as elevated creatinine. Physical Exam Const: COMMON NORMALS: no acute distress Chest: COMMONS NORMALS: normal inspection of the chest Resp: COMMON NORMALS: normal respiratory effort and No retractions Cardio: COMMON NORMALS: regular rate RATE: regular rate and bradycardic GI: COMMON NORMALS: Normal to inspection, nondistended, normoactive bowel sounds present OTHER: colostomy bag Discharge Data Data Completed and Pending: Completed Studies During Hospitalization Category Date Time Status CT abdomen pelvis w con* [id number] Urge nt Cat Scan 04/27/20 16:55 Completed Pending at discharge Category Date Time Status Blood Culture Sta t Lab 04/27/20 18:25 Results Urine Culture Sta t Lab 04/27/20 17:04 Results Vitals: Last Vital Signs Temp 98.5 F 04/28/20 15:44 Pulse 101 H 04/28/20 15:44 Resp 17 04/28/20 15:44 BP 142/85 04/28/20 15:44 Pulse Ox 96 04/28/20 15:44 Discharge Plan Discharge Patient Disposition: Home Condition: Stable Prescriptions: New ciprofloxacin HCl 500 mg tablet 500 mg PO BID Qty: 14 RF: 0 Continued ipratropium bromide 42 mcg (0.06 %) spray,non-aerosol 2 spray INTRANASAL TID PRN (Reason: UNKNOWN) RF: 0 methenamine hippurate 1 gram tablet 1 gm PO BID RF: 0 Jentadueto 2.5-1,000 mg tablet 1 tab PO BID Qty: 180 RF: 3 insulin detemir U-100 100 unit/mL (3 mL) insulin pen 40 unit SUBCUT BID Qty: 15 RF: 3 pregabalin [Lyrica] 300 mg capsule 300 mg PO .at bedtime Qty: 90 RF: 3 ropinirole 4 mg tablet 8 mg PO BID Qty: 180 RF: 3 Discharge Orders: Discharge Order (Routine); Ordered 04/28/20 Ordered By: Amor Mendes Referrals: Mian Back MD [Primary Care Provider] - 4-7 days (Call the office Wednesday morning at [phone] to set up an appointment in 4 to 7 days.) Discharge Diet: Advance as tolerated Discharge Activity: Resume usual activity Patient Instructions: Ciprofloxacin (By mouth), Metronidazole (By mouth), Ondansetron (By mouth) Discharge Attestations Time Spent in Discharge Care*: less than 30 min Status at Discharge: Cognitive status at discharge: cognitively intact , Behavioral status at discharge: cooperative , Quality Metrics Clinical Quality Measures During this hospital stay, did patient experience: None Coding Level of Care Code Acute Redipper for [facility] Fwd Exam Detailed Diagnoses Enterocolitis K52.9 Hypovolemic shock R57.1 Acute renal failure N17.9 Acute renal failure type: unspecified UTI (urinary tract infection) N39.0 Diabetes mellitus E11.9; Z79.4 Diabetes mellitus complication status: without complication Diabetes mellitus manager intermediate insulin use: with manager intermediate use Diabetes mellitus type: type 2
== END 2020-04-28 15:30 | disposition home or self-care (01) ==
LOC: ER 20:16 → MEDSURG 20:40
PROVIDERS: Admitting Provider Internal Medicine; Emergency Provider Family Medicine; PCP Internal Medicine; Visit Provider Internal Medicine
DX: K52.9 Noninfective gastroenteritis and colitis, unspecified (principal); R57.1 Hypovolemic shock; N17.9 Acute kidney failure, unspecified; N39.0 Urinary tract infection, site not specified; Z79.4 Long term (current) use of insulin; Z93.3 Colostomy status; Z85.51 Personal history of malignant neoplasm of bladder; E11.22 Type 2 diabetes mellitus with diabetic chronic kidney disease; N18.2 Chronic kidney disease, stage 2 (mild); E66.9 Obesity, unspecified; Z68.30 Body mass index [BMI] 30.0-30.9, adult; G47.33 Obstructive sleep apnea (adult) (pediatric); Z87.891 Personal history of nicotine dependence
CPT/HCPCS: 12345; 36415; 36416; 74177; 80048; 80053; 81001; 82962; 83605; 83690; 83735; 84100; 84145; 85025; 86140; 87040; 87077; 87086; 87186; 87426; 96361; 96365; 96366; 96367; 96372; 96375; 99283; 99285; G0378; J0692; J0744; J1650; J1815; J2405; J7030; Q9967; S0030

== ENCOUNTER 2020-07-17 08:19 | Emergency (ER) | payer MEDICARE, MEDICAID, SELFPAY ==
[2020-07-17 08:26] VITALS: BP 161/90; PULSE 99; RESP 16; TEMP 37.1; O2SAT 96; BMI 27.9
[2020-07-17 08:33] VITALS: O2SAT 96
--- NOTE | 2020-07-17 09:02 | ECG_ITS ---
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 Measurements Intervals Kemp Rate: 106 P: OR: QRS: -47 QRSD: 130 T: 61 QT: 322 QTc: 428 Interpretive Statements UNCERTAIN REGULAR RHYTHM RIGHT BUNDLE BRANCH BLOCK [120+ ms QRS DURATION, UPRIGHT V1, 40+ ms S IN I/aVL/V4/V5/V6] LEFT ANTERIOR FASCICULAR BLOCK [QRS AXIS <= -45, QR IN I, RS IN II] Compared to ECG 09/03/2019 13:45:53 Left anterior fascicular block now present Sinus rhythm no longer present Left-axis deviation no longer present Electronically Signed On 07-17-2020 18:25:21 CDT by Bassam Tony M.D. [email or web address]
--- NOTE | 2020-07-17 09:02 | XR_ITS ---
WS: [id number] Exam: XR chest 1V portable [id number] Date/Time of Exam: 07/17/2020 9:02 AM Reason For Exam: dyspnea/cough Comparison 08/31/2019. Findings: The lungs are clear and fully expanded. Costophrenic angles are sharp. No infiltrates. Bronchovascula r relief appears normal. Cardiac silhouette is unremarkable. Bony elements are intact. XR/XR chest 1V portable [id number] IMPRESSION: Unremarkable chest radiograph.
--- NOTE | 2020-07-17 09:05 | ED_ITS ---
HPI - General Adult General: Chief complaint: General Medical Stated complaint: weakness, dizzy Time Seen by Provider: 07/17/20 08:24 History of Present Illness: HPI narrative: 69-year-old male who presents emergency room with complaint of cough and congestion. He said the cough began yesterday this morning he woke up he has muscle aches he has been feeling weak and dizzy states he just does not feel right. His brother has also been sick. Patient has a history of bladder CA and has a call colostomy. He does states he has increased liquid output more than his baseline from the colostomy. Additionally he is diabetic. He feels like he has been running a low-grade fever cough has been nonproductive. He has not had any chest pain. He is not noticed any change in smell or taste. Onset (ago): day(s) Location: chest Severity: mild Relieving factors: none Exacerbating factors: none Associated symptoms: Reports cough, decreased appetite, dyspnea, malaise, short of breath and weakness; Deny chest pain, confusion, diaphoresis, fevers/chills, headache(s), nausea, rash, palpitations, seizures, syncope, vomiting or other Treatments prior to arrival: none Review of Systems Const: Reports: malaise; Denies: diaphoresis ENMT: Denies: throat pain, ear or mastoid pain, nasal discharge or nasal congestion Card: Denies: chest pain, palpitations or syncope Resp: Reports: dyspnea GI: Denies: nausea or vomiting : Denies: flank pain, dysuria, urinary frequency or urinary urgency Skin/Breast: Denies: rash Neuro: Denies: headache(s) or confusion [facility] ED PFSH: Medical History Acute renal failure CKD stage 2 due to type 1 diabetes mellitus Diabetes mellitus -insulin dependent Enterocolitis History of bladder cancer Hx of intestinal obstruction Obesity (BMI 30.0-34.9) PETER (obstructive sleep apnea) Parastomal hernia Poorly controlled diabetes mellitus -hx of IDDM type II, uncontrolled, complicated by peripheral neuropathy and n ephropathy -A1c-11.5 -Accuchecks, ISS, hypoglycemia precautions. BG well controlled with scheduled insulin -consistent carb diet as tolerated Pyelonephritis -UA indicative of infection -evidence of mild focal R pyelonephritis on CT -urine cx: Klebsiella oxytoca, sensitivity noted -blood cx: 2/2 bottles positive for klebsiella oxytoca; repeat set prelim negative -associated sepsis given tachycardia, leukocytosis, fever, pro-calcitonin elevated (1.35). Sepsis now resolved -continue to monitor vital signs; stable -minimal leukocytosis -has urostomy secondary to hx of bladder cancer; continue to monitor urine output -continue Ceftriaxone; will d/c on levaquin -off IVF as oral intake has improved Sepsis Surgical History History of cholecystectomy History of esophageal hernia repair History of shoulder surgery History of urostomy Family History Other Hypertension Social History Smoking and tobacco status: former smoker Alcohol intake: never Marital status: / Current occupational status: disabled History of recent travel: No Current gender identity: Male Physical Exam Const: COMMON NORMALS: no acute distress GENERAL APPEARANCE: cooperative and comfortable ORIENTATION/CONSCIOUSNESS: Yes awake, Yes oriented to person, Yes oriented to place and Yes oriented to time HENMT: COMMON NORMALS: normocephalic, atraumatic and hearing grossly normal bilaterally HEAD & SCALP: normocephalic and atraumatic Neck/C-Spine: COMMON NORMALS: no JVD Lymph: LYMPHATIC: no lymphadenopathy noted and no lymphedema noted Resp: COMMON NORMALS: normal respiratory effort, No retractions and No use of accessory muscles AUSCULTATION: wheezes Cardio: COMMON NORMALS: no JVD, regular rate, regular rhythm and No murmurs present (Cardio) RATE: regular rate RHYTHM: regular rhythm GI: COMMON NORMALS: Soft to palpation and No hepatosplenomegaly present AUSCULTATION: Yes normoactive bowel sounds PALPATION: Yes Soft to palpation, No Tenderness to palpation present (GI), No Guarding due to palpation present (GI) and Yes No hepatosplenomegaly present Extremity: COMMON NORMALS: normal to inspection, capillary refill normal, no clubbing, cyanosis or edema, no calf tenderness and no pedal edema Neuro: SENSORIUM/ORIENTATION: Yes oriented to person, Yes oriented to place and Yes oriented to time Skin: COMMON NORMALS: no rashes or lesions noted GENERAL SKIN EXAM: no rashes or lesions noted Course Vital Signs: Vital signs: Vital Signs Temperature 98.7 F 07/17/20 08:26 Pulse Rate 111 H 07/17/20 11:59 Respiratory Rate 20 H 07/17/20 11:59 Blood Pressure 110/66 07/17/20 11:59 Pulse Oximetry 20 L 07/17/20 11:59 MDM - General Adult Lab Data: Labs: Lab Results 07/17/20 07/17/20 07/17/20 Range/Units 09:45 09:45 09:45 WBC 11.0 H (4.0-10.0) 10^3/ uL RBC 4.82 (4.1-5.3) 10^6/u L Hgb 14.6 (11.7-16.6) g/dL Hct 43.1 (42.0-52.0) % MCV 89.4 (80-94) fL MCH 30.3 (28.0-34.0) pg MCHC 33.9 (30.0-36.0) g/dL RDW 13.0 (12.1-15.1) % Plt Count 160 (130-400) 10^3/c mm MPV 10.2 (7.4-10.4) fL Neut % (Auto) 76.6 % Lymph % (Auto) 9.8 % Jennings % (Auto) 11.0 % Eos % (Auto) 1.6 % Baso % (Auto) 0.7 % Neut # (Auto) 8.40 H (1.8-7.7) 10^3/u L Lymph # (Auto) 1.1 (0.8-4.8) 10^3/u L Jennings # (Auto) 1.2 H (0.2-0.9) 10^3/u L Eos # (Auto) 0.2 (0.0-0.8) 10^3/u L Baso # (Auto) 0.1 (0.0-0.1) 10^3/u L Nucleated RBC % (a uto) 0 % Nucleated RBCs # 0.0 /100WBC D-Dimer Cancelled Sodium 135 L (136-145) mmol/L Potassium 4.5 (3.5-5.1) mmol/L Chloride 105 (98-107) mmol/L Carbon Dioxide 20 L (22-29) mmol/L Anion Gap 14.5 (5-19) BUN 18 (8-23) mg/dL Creatinine 0.9 (0.7-1.2) mg/dL GFR Calculation 83.7 L (90-130) mL/min Glucose 140 H (65-115) mg/dL Calculated Osmolal ity 284 L (285-295) mOsm/k g Calcium 8.8 (8.5-10.5) mg/dL Total Bilirubin 0.4 (0.15-1.2) mg/dL AST 19 (0-40) U/L ALT 24 (0-41) U/L Alkaline Phosphata se 78 (40-130) IU/L Total Protein 7.3 (6.6-8.7) g/dL Albumin 4.1 (3.5-5.2) g/dL Globulin 3.2 (1.3-4.6) g/dL SARS-CoV-2 Ag (Rap id) (Negative) 07/17/20 07/17/20 Range/Units 09:45 10:17 WBC (4.0-10.0) 10^3/ uL RBC (4.1-5.3) 10^6/u L Hgb (11.7-16.6) g/dL Hct (42.0-52.0) % MCV (80-94) fL MCH (28.0-34.0) pg MCHC (30.0-36.0) g/dL RDW (12.1-15.1) % Plt Count (130-400) 10^3/c mm MPV (7.4-10.4) fL Neut % (Auto) % Lymph % (Auto) % Jennings % (Auto) % Eos % (Auto) % Baso % (Auto) % Neut # (Auto) (1.8-7.7) 10^3/u L Lymph # (Auto) (0.8-4.8) 10^3/u L Jennings # (Auto) (0.2-0.9) 10^3/u L Eos # (Auto) (0.0-0.8) 10^3/u L Baso # (Auto) (0.0-0.1) 10^3/u L Nucleated RBC % (a uto) % Nucleated RBCs # /100WBC D-Dimer 0.31 Sodium (136-145) mmol/L Potassium (3.5-5.1) mmol/L Chloride (98-107) mmol/L Carbon Dioxide (22-29) mmol/L Anion Gap (5-19) BUN (8-23) mg/dL Creatinine (0.7-1.2) mg/dL GFR Calculation (90-130) mL/min Glucose (65-115) mg/dL Calculated Osmolal ity (285-295) mOsm/k g Calcium (8.5-10.5) mg/dL Total Bilirubin (0.15-1.2) mg/dL AST (0-40) U/L ALT (0-41) U/L Alkaline Phosphata se (40-130) IU/L Total Protein (6.6-8.7) g/dL Albumin (3.5-5.2) g/dL Globulin (1.3-4.6) g/dL SARS-CoV-2 Ag (Rap id) Negative (Negative) Discharge Plan Discharge Patient Disposition: Home Clinical Impression: Bronchitis Condition: Stable Prescriptions: New doxycycline hyclate 100 mg capsule 100 mg PO BID 10 Days Qty: 20 RF: 0 dexamethasone 6 mg tablet 6 mg PO DAILY Qty: 7 RF: 0 albuterol sulfate 90 mcg/actuation HFA aerosol inhaler 2 inh INHALATION Q4H PRN (Reason: shortness of breath or wheezing) Qty: 18 RF: 0 No Action ipratropium bromide 42 mcg (0.06 %) spray,non-aerosol 2 spray INTRANASAL PRN RF: 0 Jentadueto 2.5-1,000 mg tablet 1 tab PO BID Qty: 180 RF: 3 insulin detemir U-100 100 unit/mL (3 mL) insulin pen 40 unit SUBCUT BID Qty: 15 RF: 3 ropinirole 4 mg tablet 8 mg PO BID Qty: 180 RF: 3 Discharge Orders: Discharge ED (Routine); Ordered 07/17/20 Ordered By: Jordy Arenas Referrals: Mian Back MD [Primary Care Provider] - Discharge Diet: Usual diet Discharge Activity: Limit activity as instructed Patient Instructions: Opioid Safety Activity Restrictions/Additional Instructions: You were tested for COVID-19 recommend you maintain a self quarantine until the final result is back if you have any worsening of symptoms return. 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
[2020-07-17 09:50] VITALS: BP 121/89; PULSE 100; O2SAT 96
[2020-07-17 09:59] LABS: Basophils # 0.1 10^3/uL (0.0-0.1); Basophils % 0.7 %; Eosinophils # 0.2 10^3/uL (0.0-0.8); Eosinophils % 1.6 %; Hematocrit 43.1 % (42.0-52.0); Hemoglobin 14.6 g/dL (11.7-16.6); Lymphocytes # 1.1 10^3/uL (0.8-4.8); Lymphocytes % 9.8 %; Mean Corpuscular HGB Conc 33.9 g/dL (30.0-36.0); Mean Corpuscular Hemoglobin 30.3 pg (28.0-34.0); Mean Corpuscular Volume 89.4 fL (80-94); Mean Platelet Volume 10.2 fL (7.4-10.4); Monocytes # 1.2 10^3/uL (0.2-0.9); Neutrophils % 76.6 %; Nucleated Red Blood Cells % 0 %; Platelet Count 160 10^3/cmm (130-400); Red Blood Count 4.82 10^6/uL (4.1-5.3)
[2020-07-17 10:16] LABS: Alanine Aminotransferase 24 U/L (0-41); Albumin Level 4.1 g/dL (3.5-5.2); Alkaline Phosphatase 78 IU/L (40-130); Anion Gap 14.5 (5-19); Aspartate Amino Transferase 19 U/L (0-40); Blood Urea Nitrogen 18 mg/dL (8-23); Calcium 8.8 mg/dL (8.5-10.5); Carbon Dioxide 20 mmol/L (22-29); Chloride 105 mmol/L (98-107); Globulin 3.2 g/dL (1.3-4.6); Glomerular Filtration Rate 83.7 mL/min (90-130); Glucose 140 mg/dL (65-115); Osmolality Calculated 284 mOsm/kg (285-295); Potassium 4.5 mmol/L (3.5-5.1); Sodium 135 mmol/L (136-145); Total Bilirubin 0.4 mg/dL (0.15-1.2); Total Protein 7.3 g/dL (6.6-8.7)
[2020-07-17 10:40] LABS: D Dimer 0.31 ug/mIFEU (0-0.59)
[2020-07-17 10:41] LABS: SARS Covid-2 Antigen Negative (Negative)
[2020-07-17 11:59] VITALS: BP 110/66; PULSE 111; RESP 20; O2SAT 20
== END 2020-07-17 12:00 | disposition home or self-care (01) ==
PROVIDERS: Emergency Provider Family Medicine; PCP Internal Medicine
DX: J40 Bronchitis, not specified as acute or chronic (principal); Z79.4 Long term (current) use of insulin; E10.22 Type 1 diabetes mellitus with diabetic chronic kidney disease; N18.2 Chronic kidney disease, stage 2 (mild); Z85.51 Personal history of malignant neoplasm of bladder; Z87.891 Personal history of nicotine dependence
CPT/HCPCS: 36415; 71045; 80053; 85025; 85378; 87426; 93005; 99283

== ENCOUNTER 2020-08-05 05:09 | Emergency (ER) | payer MEDICARE, MEDICAID, SELFPAY ==
[2020-08-05 05:13] VITALS: BP 146/83; PULSE 103; RESP 20; TEMP 36.8; O2SAT 96; BMI 28.5
--- NOTE | 2020-08-05 05:29 | XRR_ITS ---
PROCEDURE INFORMATION: Exam: XR Right Foot Exam date and time: 08/05/2020 5:33 AM Age: 69 years old Clinical indication: Injury or trauma; Other: Puncture wound bottom of right foot; Without foreign body; Additional info: Pain, swelling, puncture wound, diabetic TECHNIQUE: Imaging protocol: XR Right foot. Views: 3 or more views. COMPARISON: No relevant prior studies available. FINDINGS: Bones/joints: Normal. Soft tissues: Normal. XR/XR foot RT min 3V* [id number] IMPRESSION: No acute findings. No evidence for foreign body.
--- NOTE | 2020-08-05 05:32 | ED_ITS ---
HPI - Extremity Problem General: Chief complaint: Extremity Problem,Nontraumatic Stated complaint: right foot injury injury Time Seen by Provider: 08/05/20 05:14 History of Present Illness: HPI Narrative: 69-year-old male with history of diabetes. He notes pain when standing on his right foot. He says he must of stepped on something, because he has noticed a blister, on the plantar surface of his lateral right forefoot with redness and some swelling. He stuck a needle in it last night, with some drainage of blood and pus no fever. He has diabetic neuropathy otherwise generalized loss of sensation to his feet. MD Complaint: extremity pain and extremity swelling Onset (ago): hour(s) Pain Consistency: constant Location: right Quality: aching Radiation: none Relieving factors: nothing Exacerbating factors: weight bearing Associated symptoms: Reports rash; Deny arthralgias, chest pain, fever(s) or short of breath Review of Systems Const: Denies: fever(s) Card: Denies: chest pain Resp: Denies: dyspnea GI: Denies: abdominal pain, nausea or vomiting Skin/Breast: Reports: rash, erythema, skin pain, skin tenderness and skin swelling Neuro: Reports: numbness in extremities (from neuropathy) PFSH ED PFSH: Medical History Acute renal failure CKD stage 2 due to type 1 diabetes mellitus Diabetes mellitus -insulin dependent Enterocolitis History of bladder cancer Hx of intestinal obstruction Obesity (BMI 30.0-34.9) PETER (obstructive sleep apnea) Parastomal hernia Poorly controlled diabetes mellitus -hx of IDDM type II, uncontrolled, complicated by peripheral neuropathy and nephropathy -A1c-11.5 -Accuchecks, ISS, hypoglycemia precautions. BG well controlled with scheduled insulin -consistent carb diet as tolerated Pyelonephritis -UA indicative of infection -evidence of mild focal R pyelonephritis on CT -urine cx: Klebsiella oxytoca, sensitivity noted -blood cx: 2/2 bottles positive for klebsiella oxytoca; repeat set prelim negative -associated sepsis given tachycardia, leukocytosis, fever, pro-calcitonin elevated (1.35). Sepsis now resolved -continue to monitor vital signs; stable -minimal leukocytosis -has urostomy secondary to hx of bladder cancer; continue to monitor urine output -continue Ceftriaxone; will d/c on levaquin -off IVF as oral intake has improved Sepsis Surgical History History of cholecystectomy History of esophageal hernia repair History of shoulder surgery History of urostomy Family History Other Hypertension Social History Smoking and tobacco status: former smoker Alcohol intake: never Marital status: / Current occupational status: disabled History of recent travel: No Current gender identity: Male Physical Exam Const: COMMON NORMALS: no acute distress, patient oriented x3 and alert GENERAL APPEARANCE: cooperative HENMT: COMMON NORMALS: normocephalic HEAD & SCALP: normocephalic Eye: COMMON NORMALS: Equal, round and reactive pupils present and EOMs intact bilaterally PUPIL: Yes Equal, round and reactive pupils present Chest: COMMONS NORMALS: normal inspection of the chest Resp: COMMON NORMALS: normal respiratory effort, No use of accessory muscles and clear to auscultation bilaterally AUSCULTATION: clear to auscultation bilaterally Cardio: COMMON NORMALS: regular rate, regular rhythm and No murmurs present (Cardio) RATE: regular rate RHYTHM: regular rhythm Extremity: NARRATIVE EXTREMITY EXAM: Exam the right foot reveals forefoot swelling both plantar and dorsal, especially to the lateral side of the foot. There is a small blister on the plantar surface, no active drainage. There is beefy erythema, without streaking Neuro: COMMON NORMALS: patient oriented x3 SENSORIUM/ORIENTATION: Yes alert Course Vital Signs: Vital signs: Vital Signs Temperature 98.3 F 08/05/20 05:13 Pulse Rate 87 08/05/20 05:47 Respiratory Rate 20 H 08/05/20 05:13 Blood Pressure 146/83 08/05/20 05:13 Pulse Oximetry 96 08/05/20 05:13 MDM - Extremity (Nontraumatic) MDM Narrative: Medical decision making narrative: White blood cell count is 9.5. Patient is afebrile. He has palpable and dopplerable dorsalis pedis and posterior tibialis pulses. His x-ray shows some soft tissue swelling of the forefoot without any bony erosion. No foreign body present. The rest of his labs are pending. In the event the rest of his benign, he will be sent home on Levaquin. It is unknown whether this puncture wound came through the shoe sole or not. Lab Data: Labs: Lab Results 08/05/20 08/05/20 Range/Units 05:35 05:35 WBC 9.5 (4.0-10.0) 10^3/ uL RBC 4.30 (4.1-5.3) 10^6/u L Hgb 13.2 (11.7-16.6) g/dL Hct 38.9 L (42.0-52.0) % MCV 90.5 (80-94) fL MCH 30.7 (28.0-34.0) pg MCHC 33.9 (30.0-36.0) g/dL RDW 12.7 (12.1-15.1) % Plt Count 126 L (130-400) 10^3/c mm MPV 10.3 (7.4-10.4) fL Neut % (Auto) 65.2 % Lymph % (Auto) 21.9 % [place] % (Auto) 9.7 % Eos % (Auto) 2.0 % Baso % (Auto) 0.8 % Neut # (Auto) 6.16 (1.8-7.7) 10^3/u L Lymph # (Auto) 2.1 (0.8-4.8) 10^3/u L [place] # (Auto) 0.9 (0.2-0.9) 10^3/u L Eos # (Auto) 0.2 (0.0-0.8) 10^3/u L Baso # (Auto) 0.1 (0.0-0.1) 10^3/u L Nucleated RBC % (a uto) 0 % Nucleated RBCs # 0.0 /100WBC Sodium 135 L (136-145) mmol/L Potassium 3.7 (3.5-5.1) mmol/L Chloride 105 (98-107) mmol/L Carbon Dioxide 21 L (22-29) mmol/L Anion Gap 12.7 (5-19) BUN 17 (8-23) mg/dL Creatinine 0.9 (0.7-1.2) mg/dL GFR Calculation 83.7 L (90-130) mL/min Glucose 217 H (65-115) mg/dL Calculated Osmolal ity 288 (285-295) mOsm/k g Calcium 8.7 (8.5-10.5) mg/dL Total Bilirubin 0.3 (0.15-1.2) mg/dL AST 12 (0-40) U/L ALT 23 (0-41) U/L Alkaline Phosphata se 69 (40-130) IU/L C-Reactive Protein 8.7 H (0.0-4.9) mg/L Total Protein 6.2 L (6.6-8.7) g/dL Albumin 3.6 (3.5-5.2) g/dL Globulin 2.6 (1.3-4.6) g/dL Discharge Plan Discharge Patient Disposition: Home Clinical Impression: Cellulitis Qualifiers: Site of cellulitis: extremity Site of cellulitis of extremity: lower extremity Laterality: right Qualified Code(s): L03.115 - Cellulitis of right lower limb Condition: Stable Prescriptions: New levofloxacin 500 mg tablet 500 mg PO DAILY 10 Days Qty: 30 RF: 0 No Action ipratropium bromide 42 mcg (0.06 %) spray,non-aerosol 2 spray INTRANASAL PRN RF: 0 Jentadueto 2.5-1,000 mg tablet 1 tab PO BID Qty: 180 RF: 3 insulin detemir U-100 100 unit/mL (3 mL) insulin pen 40 unit SUBCUT BID Qty: 15 RF: 3 ropinirole 4 mg tablet 8 mg PO BID Qty: 180 RF: 3 dexamethasone 6 mg tablet 6 mg PO DAILY Qty: 7 RF: 0 albuterol sulfate 90 mcg/actuation HFA aerosol inhaler 2 inh INHALATION Q4H PRN (Reason: shortness of breath or wheezing) Qty: 18 RF: 0 Discharge Orders: Discharge ED (Routine); Ordered 08/05/20 Ordered By: Koby Chaney Referrals: Mian Back MD [Primary Care Provider] - 4-7 days Discharge Diet: Usual diet Discharge Activity: Limit activity as instructed Patient Instructions: Puncture Wound (ED), Cellulitis (ED) Activity Restrictions/Additional Instructions: Return for fever greater than 100, worsening swelling, redness, or pain despite 2-3 doses of antibiotics, increased drainage, streaking up the leg, any other concerning symptoms. 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
[2020-08-05 05:40] LABS: Basophils # 0.1 10^3/uL (0.0-0.1); Basophils % 0.8 %; Eosinophils # 0.2 10^3/uL (0.0-0.8); Hematocrit 38.9 % (42.0-52.0); Hemoglobin 13.2 g/dL (11.7-16.6); Lymphocytes # 2.1 10^3/uL (0.8-4.8); Lymphocytes % 21.9 %; Mean Corpuscular HGB Conc 33.9 g/dL (30.0-36.0); Mean Corpuscular Hemoglobin 30.7 pg (28.0-34.0); Mean Corpuscular Volume 90.5 fL (80-94); Mean Platelet Volume 10.3 fL (7.4-10.4); Monocytes # 0.9 10^3/uL (0.2-0.9); Monocytes % 9.7 %; Neutrophils # 6.16 10^3/uL (1.8-7.7); Neutrophils % 65.2 %; Nucleated Red Blood Cells % 0 %; Platelet Count 126 10^3/cmm (130-400); Red Cell Distribution Width 12.7 % (12.1-15.1); White Blood Count 9.5 10^3/uL (4.0-10.0)
[2020-08-05 05:47] VITALS: PULSE 87
[2020-08-05 05:55] LABS: Alanine Aminotransferase 23 U/L (0-41); Albumin Level 3.6 g/dL (3.5-5.2); Alkaline Phosphatase 69 IU/L (40-130); Anion Gap 12.7 (5-19); Aspartate Amino Transferase 12 U/L (0-40); Blood Urea Nitrogen 17 mg/dL (8-23); C Reactive Protein 8.7 mg/L (0.0-4.9); Calcium 8.7 mg/dL (8.5-10.5); Carbon Dioxide 21 mmol/L (22-29); Chloride 105 mmol/L (98-107); Globulin 2.6 g/dL (1.3-4.6); Glomerular Filtration Rate 83.7 mL/min (90-130); Glucose 217 mg/dL (65-115); Osmolality Calculated 288 mOsm/kg (285-295); Potassium 3.7 mmol/L (3.5-5.1); Sodium 135 mmol/L (136-145); Total Bilirubin 0.3 mg/dL (0.15-1.2); Total Protein 6.2 g/dL (6.6-8.7)
[2020-08-05] MEDS: levoFLOXacin 500 mg Tablet PO (06:10)
[2020-08-05] MEDS: oxyCODONE-APAP 5-325 mg Tablet 1 TAB PO (06:10)
[2020-08-05 06:22] VITALS: BP 113/67; PULSE 84; RESP 17; O2SAT 97
[2020-08-05 06:24] LABS: Erythrocyte Sedimentation Rate 28 mm/hr (0-10)
== END 2020-08-05 06:22 | disposition home or self-care (01) ==
PROVIDERS: Emergency Provider Emergency Medicine; PCP Internal Medicine
DX: L03.115 Cellulitis of right lower limb (principal); Z79.4 Long term (current) use of insulin; E11.22 Type 2 diabetes mellitus with diabetic chronic kidney disease; N18.2 Chronic kidney disease, stage 2 (mild); Z85.51 Personal history of malignant neoplasm of bladder; Z87.891 Personal history of nicotine dependence
CPT/HCPCS: 73630; 80053; 85025; 85651; 86140; 99283

== ENCOUNTER → 2020-08-18 14:11 | Outpatient (BNVA) | payer MEDICARE, MEDICAID, SELFPAY | PROVIDERS: PCP Internal Medicine; Visit Provider Nurse Practitioner | DX: L03.90 Cellulitis, unspecified (principal); S91.339A Puncture wound without foreign body, unspecified foot, initial encounter; X58.XXXA Exposure to other specified factors, initial encounter | CPT/HCPCS: 85025 ==

== ENCOUNTER 2020-09-17 12:34 | Outpatient (CLI) | payer MEDICARE, MEDICAID, OTHER, SELFPAY ==
--- NOTE | 2020-09-17 13:15 | CT_ITS ---
WS: [id number] LDCT LUNG CANCER SCREENING TECHNIQUE: Noncontrast CT of the chest with coronal and sagittal reformatted images. CLINICAL INFORMATION: smoking history and cough COMPARISON: CT August 31, 2019 DLP: 56.96 mGy.cm DIvol: 1.[address] scans at [facility] use at least one of these dose optimization techniques: automat ed exposure control; mA and/or kV adjustment per patient size (includes targeted exams where dose is matched to clinical indication); or iterative reconstruction. FINDINGS: Both lungs are well aerated. No acute pulmonary infiltrates. No focal consolidation or pleural fluid. Noncalcified subpleural opacity right upper lobe measuring 7 mm is unchanged. No other suspicious pu lmonary parenchymal opacities. Mild aortic calcification. Coronary calcification. Adrenal glands are normal. Tiny esophageal hiatal hernia. CT/CT lung screening [id number] IMPRESSION: LUNG-RADS: 2-Benign Appearance or Behavior FOLLOW UP: 12 Month: Continue annual screening with LDCT
== END 2020-09-17 12:35 | disposition home or self-care (01) ==
PROVIDERS: PCP Internal Medicine; Visit Provider Internal Medicine
DX: Z12.2 Encounter for screening for malignant neoplasm of respiratory organs (principal); Z87.891 Personal history of nicotine dependence; R05 Cough; I70.0 Atherosclerosis of aorta; I25.10 Atherosclerotic heart disease of native coronary artery without angina pectoris
CPT/HCPCS: 71271

== ENCOUNTER → 2020-11-11 10:28 | Outpatient (BNVA) | payer MEDICARE, MEDICAID, SELFPAY | PROVIDERS: PCP Internal Medicine; Referring Provider Internal Medicine; Visit Provider Podiatrist Foot & Ankle Surgery | DX: M79.671 Pain in right foot (principal); M79.672 Pain in left foot; E11.9 Type 2 diabetes mellitus without complications; E11.40 Type 2 diabetes mellitus with diabetic neuropathy, unspecified; M79.673 Pain in unspecified foot | CPT/HCPCS: 73630 ==

== ENCOUNTER → 2020-11-21 14:48 | Outpatient (BNVA) | payer MEDICARE, MEDICAID, SELFPAY | PROVIDERS: PCP Internal Medicine; Visit Provider Podiatrist Foot & Ankle Surgery | DX: L97.512 Non-pressure chronic ulcer of other part of right foot with fat layer exposed (principal); L03.90 Cellulitis, unspecified; M79.673 Pain in unspecified foot | CPT/HCPCS: 73630 ==

== ENCOUNTER 2020-11-21 16:14 | Outpatient (CLI) | payer MEDICARE, MEDICAID, SELFPAY | END 2020-11-21 16:15 | disposition home or self-care (01) | LOC: SPT 16:15 | PROVIDERS: PCP Internal Medicine; Visit Provider Podiatrist Foot & Ankle Surgery | DX: Z46.89 Encounter for fitting and adjustment of other specified devices (principal); M79.673 Pain in unspecified foot; L97.512 Non-pressure chronic ulcer of other part of right foot with fat layer exposed; L03.90 Cellulitis, unspecified | CPT/HCPCS: 87070; 87075; 87077; 87186; 87205; 97760; L4361 ==

== ENCOUNTER 2020-12-17 04:33 | Emergency (ER) | payer MEDICARE, MEDICAID, SELFPAY ==
[2020-12-17 04:40] VITALS: BP 115/75; PULSE 92; RESP 16; TEMP 36.1; O2SAT 98; BMI 30.5
--- NOTE | 2020-12-17 05:05 | ED_ITS ---
HPI - General Adult General: Chief complaint: Wound/Laceration Stated complaint: L Foot Little Toe Blood Blister Time Seen by Provider: 12/17/20 04:57 History of Present Illness: HPI narrative: Patient is a 70-year-old male with history of diabetes who presents emergency room for evaluation of left fifth digit toe blister. First noticed blister yesterday night and since then, patient has noticed there is blood in the blister. Patient denies any pus no pressure, fever/chills, redness or worsening pain. Patient presents the emergency room for evaluation given concerns of diabetes and new onset of blister. Patient is followed by Dr. Day from podiatry. Onset:1 day ago Duration:1 day Location:home Severity:mild Review of Systems Narrative: Constitutional: No fever, no chills. HEENT: No vision changes CV: No chest pain, no palpitations PULM: no cough, no dyspnea. GI: No abdominal pain, no N/V/D. : No dysuria MSKEL: No muscle pain, +L fifth toe blister SKIN: No new rashes, no lesions. NEURO: No headache, no focal weakness. HEME: No visible bruises PSYCH: Normal mood PFSH ED PFSH: Medical History Acute renal failure CKD stage 2 due to type 1 diabetes mellitus Diabetes mellitus -insulin dependent Enterocolitis History of bladder cancer Hx of intestinal obstruction Obesity (BMI 30.0-34.9) PETER (obstructive sleep apnea) Parastomal hernia Poorly controlled diabetes mellitus -hx of IDDM type II, uncontrolled, complicated by peripheral neuropathy and nephropathy -A1c-11.5 -Accuchecks, ISS, hypoglycemia precautions. BG well controlled with scheduled insulin -consistent carb diet as tolerated Pyelonephritis -UA indicative of infection -evidence of mild focal R pyelonephritis on CT -urine cx: Klebsiella oxytoca, sensitivity noted -blood cx: 2/2 bottles positive for klebsiella oxytoca; repeat set prelim negative -associated sepsis given tachycardia, leukocytosis, fever, pro-calcitonin elevated (1.35). Sepsis now resolved -continue to monitor vital signs; stable -minimal leukocytosis -has urostomy secondary to hx of bladder cancer; continue to monitor urine output -continue Ceftriaxone; will d/c on levaquin -off IVF as oral intake has improved Sepsis Surgical History History of cholecystectomy History of esophageal hernia repair History of shoulder surgery History of urostomy Family History Other Hypertension Social History Alcohol intake: never Marital status: / Current occupational status: disabled History of recent travel: No Current gender identity: Male Physical Exam Narrative: EXAM NARRATIVE: Head: Atraumatic Eyes: PERRL, conjunctiva without injection ENT: Mucous membrane moist NECK: Supple, ROM intact LUNGS: LCTAB, no crackles/rhonchi CV: RRR ABDOMEN: Soft, nontender in all quadrants EXTREMITY: Normal ROM, 2+dp/pt pulses, +L medial fifth toe hemorrhagic blister without any surrounding erythema, pus, warmth, or tenderness to palpation, no crepitus on exam SKIN: No rash or erythema NEURO: Awake and alert, no focal motor deficits PSYCH: Normal mood and affect Course Vital Signs: Vital signs: Vital Signs Temperature 96.9 F L 12/17/20 04:40 Pulse Rate 92 12/17/20 04:40 Respiratory Rate 16 12/17/20 04:40 Blood Pressure 115/75 12/17/20 04:40 Pulse Oximetry 98 12/17/20 04:40 MDM - General Adult MDM Narrative: Medical decision making narrative: 70-year-old male with history of diabetes presenting to emergency room with complaints of hemorrhagic blister on the left fifth toe. On exam, the history appears to be sterile but there is blood in the blister. I discussed with patient the risks of removing blister which includes new infection to the foot versus serial observation to ensure that the blister does not get infected. Patient elects for observation and close follow-up with Dr. Day for serial observation. Patient also declined x-ray today. Patient tells me that he will go see Dr. aDy today for further evaluation. Disposition: Discharge. Patient counseled regarding diagnostic impression, treatment plan. Patient given ED strict return precautions to return for continuation, worsening, or development of new symptoms. Instructed to f/u w/ PCP regarding symptoms today. Patient verbalized understanding. Discharge Plan Discharge Patient Disposition: Home Clinical Impression: Blister Condition: Stable Prescriptions: No Action ipratropium bromide 42 mcg (0.06 %) spray,non-aerosol 2 spray INTRANASAL PRN RF: 0 insulin detemir U-100 100 unit/mL (3 mL) insulin pen 40 unit SUBCUT BID Qty: 15 RF: 3 (DME) custom molded accommodative orthotic See Rx Instructions .ROUTE .MEDSUPPLY Qty: 1 RF: 0 naproxen 500 mg tablet 500 mg PO BID Qty: 60 RF: 0 (DME) custom molded orthotics See Rx Instructions .ROUTE .MEDSUPPLY Qty: 1 RF: 0 fluticasone propion-salmeterol [Advair Diskus] 500-50 mcg/dose blister with device 1 inh inhalation BID Qty: 60 RF: 0 sulfamethoxazole-trimethoprim [Bactrim DS] 800-160 mg tablet 1 tab PO Q12H 10 Days Qty: 20 RF: 0 clindamycin HCl 300 mg capsule 300 mg PO TID 7 Days Qty: 21 RF: 0 ciprofloxacin HCl [Cipro] 500 mg tablet 500 mg PO BID 7 Days Qty: 14 RF: 0 (DME) Cam boot to right See Rx Instructions .Route .MEDSUPPLY Qty: 1 RF: 0 ropinirole 4 mg tablet 8 mg PO BID Qty: 180 RF: 3 midodrine 5 mg tablet 5 mg PO BID Qty: 90 RF: 0 Jentadueto 2.5-1,000 mg tablet 1 tab PO BID Qty: 180 RF: 3 albuterol sulfate 90 mcg/actuation HFA aerosol inhaler 2 inh INHALATION Q4H PRN (Reason: shortness of breath or wheezing) Qty: 18 RF: 0 Discharge Orders: Discharge ED (Routine); Ordered 12/17/20 Ordered By: Ishmael Salazar Referrals: Mian Back MD [Primary Care Provider] - Discharge Diet: Advance as tolerated Discharge Activity: Resume usual activity Patient Instructions: Blister (ED) Activity Restrictions/Additional Instructions: Follow-up with Dr. Day for further evaluation to make sure that this blister does not become infected. Come back to the emergency room if you notice any redness, any pus in the blister, any pain, fever/chill or any new or concerning issues. 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
== END 2020-12-17 05:14 | disposition home or self-care (01) ==
PROVIDERS: Emergency Provider Emergency Medicine; PCP Internal Medicine
DX: S90.425A Blister (nonthermal), left lesser toe(s), initial encounter (principal); Z79.4 Long term (current) use of insulin; E10.22 Type 1 diabetes mellitus with diabetic chronic kidney disease; N18.2 Chronic kidney disease, stage 2 (mild); Z85.51 Personal history of malignant neoplasm of bladder; X58.XXXA Exposure to other specified factors, initial encounter
CPT/HCPCS: 99281

== ENCOUNTER → 2020-12-25 14:46 | Outpatient (BNVA) | payer MEDICARE, MEDICAID, SELFPAY | PROVIDERS: PCP Internal Medicine; Visit Provider Podiatrist Foot & Ankle Surgery | DX: S91.332A Puncture wound without foreign body, left foot, initial encounter (principal); X58.XXXA Exposure to other specified factors, initial encounter | CPT/HCPCS: 73630 ==

== ENCOUNTER 2021-02-03 21:56 | Emergency (ER) | payer MEDICARE, MEDICAID, SELFPAY ==
[2021-02-03 22:11] VITALS: BP 108/67; PULSE 111; RESP 16; TEMP 36.6; O2SAT 100; BMI 29.8
--- NOTE | 2021-02-03 22:32 | ED_ITS ---
HPI - Extremity Problem General: Chief complaint: Extremity Injury, Lower Stated complaint: Injury Right Foot Time Seen by Provider: 02/03/21 22:32 History of Present Illness: HPI Narrative: Patient comes in today with injury to the right foot. Patient stated that he dropped a bar on the foot 1 week ago. Patient continues to have some swelling and tenderness to the foot. Review of Systems General: Reports: 10 or more systems reviewed and unremarkable except in HPI and below Musc: Reports: other (Right foot injury) PFS ED PFSH: Medical History Acute renal failure CKD stage 2 due to type 1 diabetes mellitus Diabetes mellitus -insulin dependent Enterocolitis History of bladder cancer Hx of intestinal obstruction Obesity (BMI 30.0-34.9) PETER (obstructive sleep apnea) Parastomal hernia Poorly controlled diabetes mellitus -hx of IDDM type II, uncontrolled, complicated by peripheral neuropathy and nephropathy -A1c-11.5 -Accuchecks, ISS, hypoglycemia precautions. BG well controlled with scheduled insulin -consistent carb diet as tolerated Pyelonephritis -UA indicative of infection -evidence of mild focal R pyelonephritis on CT -urine cx: Klebsiella oxytoca, sensitivity noted -blood cx: 2/2 bottles positive for klebsiella oxytoca; repeat set prelim negative -associated sepsis given tachycardia, leukocytosis, fever, pro-calcitonin elevated (1.35). Sepsis now resolved -continue to monitor vital signs; stable -minimal leukocytosis -has urostomy secondary to hx of bladder cancer; continue to monitor urine output -continue Ceftriaxone; will d/c on levaquin -off IVF as oral intake has improved Sepsis Surgical History History of cholecystectomy History of esophageal hernia repair History of shoulder surgery History of urostomy Family History Other Hypertension Social History Alcohol intake: never Marital status: / Current occupational status: disabled History of recent travel: No Current gender identity: Male Physical Exam Const: COMMON NORMALS: no acute distress and patient oriented x3 GENERAL APPEARANCE: cooperative HENMT: COMMON NORMALS: normocephalic HEAD & SCALP: normal to inspection and normocephalic Eye: GENERAL EYE: appearance normal, both eyes and all related structures Neck/C-Spine: COMMON NORMALS: full ROM Chest: COMMONS NORMALS: normal inspection of the chest Resp: COMMON NORMALS: normal respiratory effort EFFORT & INSPECTION: Yes able to speak in complete sentences Cardio: COMMON NORMALS: regular rate and regular rhythm RATE: regular rate RHYTHM: regular rhythm GI: COMMON NORMALS: non-tender : COMMON NORMALS: Yes no CVA tenderness BLADDER/KIDNEY EXAM: Yes no CVA tenderness Back/Pelvis: COMMON NORMALS: no CVA tenderness and thoracic and lumbar spine normal to inspection Extremity: NARRATIVE EXTREMITY EXAM: Right foot has some dorsal swelling with no obvious ecchymosis. Cap refill and sensation is intact. Positive pedal pulses. Neuro: COMMON NORMALS: patient oriented x3 and moves all extremities Psych: COMMON NORMALS: mental status grossly normal and cooperative Skin: COMMON NORMALS: no rashes or lesions noted GENERAL SKIN EXAM: no rashes or lesions noted Course Vital Signs: Vital signs: Vital Signs Temperature 97.9 F 02/03/21 22:11 Pulse Rate 111 H 02/03/21 22:11 Respiratory Rate 16 02/03/21 22:11 Blood Pressure 108/67 02/03/21 22:11 Pulse Oximetry 100 02/03/21 22:11 MDM - Extremity (Nontraumatic) MDM Narrative: Medical decision making narrative: Patient comes in for evaluation of injury to the right foot. Patient has increased swelling and te nderness to the foot. The injury occurred about 1 week ago. On exam patient has positive pulses. No obvious signs of fracture is noted on x-ray. Reviewed exam with patient with recommendations for treatment and follow-up. Differential diagnosis includes contusion, sprain, fracture. Discharge Plan Discharge Patient Disposition: Home Clinical Impression: Contusion of foot, right Qualifiers: Encounter type: initial encounter Qualified Code(s): S90.31XA - Contusion of right foot, initial encounter Condition: Stable Prescriptions: No Action ipratropium bromide 42 mcg (0.06 %) spray,non-aerosol 2 spray INTRANASAL PRN RF: 0 insulin detemir U-100 100 unit/mL (3 mL) insulin pen 40 unit SUBCUT BID Qty: 15 RF: 3 (DME) custom molded accommodative orthotic See Rx Instructions .ROUTE .MEDSUPPLY Qty: 1 RF: 0 naproxen 500 mg tablet 500 mg PO BID Qty: 60 RF: 0 (DME) custom molded orthotics See Rx Instructions .ROUTE .MEDSUPPLY Qty: 1 RF: 0 fluticasone propion-salmeterol [Advair Diskus] 500-50 mcg/dose blister with device 1 inh inhalation BID Qty: 60 RF: 0 sulfamethoxazole-trimethoprim [Bactrim DS] 800-160 mg tablet 1 tab PO Q12H 10 Days Qty: 20 RF: 0 clindamycin HCl 300 mg capsule 300 mg PO TID 7 Days Qty: 21 RF: 0 ciprofloxacin HCl [Cipro] 500 mg tablet 500 mg PO BID 7 Days Qty: 14 RF: 0 (DME) Cam boot to right See Rx Instructions .Route .MEDSUPPLY Qty: 1 RF: 0 ropinirole 4 mg tablet 8 mg PO BID Qty: 180 RF: 3 midodrine 5 mg tablet 5 mg PO BID Qty: 90 RF: 0 Jentadueto 2.5-1,000 mg tablet 1 tab PO BID Qty: 180 RF: 3 albuterol sulfate 90 mcg/actuation HFA aerosol inhaler 2 inh INHALATION Q4H PRN (Reason: shortness of breath or wheezing) Qty: 18 RF: 0 Discharge Orders: Discharge ED (Routine); Ordered 02/03/21 Ordered By: James Mason Referrals: Mian Back MD [Primary Care Provider] - Discharge Diet: Usual diet Discharge Activity: Increase activity as tolerated Patient Instructions: Foot Contusion (ED), Opioid Safety Activity Restrictions/Additional Instructions: Wear an elastic bandage to help with the swelling to the foot. Use a supportive shoe for protection of the foot. Use acetaminophen for pain. Monitor for increased swelling in the calf or pain in the calf. If you have the symptoms you may need to be evaluated for a venous thrombosis. At this time there is no sign of venous thrombosis. Follow-up with primary care in 1 week for recheck. Return to the ER for new concerns. 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
--- NOTE | 2021-02-03 22:32 | XRR_ITS ---
PROCEDURE INFORMATION: Exam: XR Right Foot Exam date and time: 02/03/2021 10:32 PM Age: 70 years old Clinical indication: Pain; Foot; Right; Additional info: Injury TECHNIQUE: Imaging protocol: XR Right foot. Views: 3 or more views. COMPARISON: No relevant prior studies available. FINDINGS: Bones/joints: There is a heel spur. No acute fracture or dislocation. Soft tissues: Normal. XR/XR foot RT min 3V* [id number] IMPRESSION: No acute fracture or dislocation. Radiation Dose CTDIVOL = (mGy): DLP = (mGy-cm)
[2021-02-04 00:05] VITALS: PULSE 90; RESP 18; O2SAT 97
== END 2021-02-04 00:06 | disposition home or self-care (01) ==
PROVIDERS: Emergency Provider Nurse Practitioner Family; PCP Internal Medicine
DX: S90.31XA Contusion of right foot, initial encounter (principal); Z79.4 Long term (current) use of insulin; E10.22 Type 1 diabetes mellitus with diabetic chronic kidney disease; N18.2 Chronic kidney disease, stage 2 (mild); Z85.51 Personal history of malignant neoplasm of bladder; W20.8XXA Other cause of strike by thrown, projected or falling object, initial encounter
CPT/HCPCS: 73630; 99282

== ENCOUNTER 2021-02-24 08:42 | Emergency (ER) | payer MEDICARE, MEDICAID, SELFPAY ==
[2021-02-24 08:57] VITALS: BP 175/96; PULSE 91; RESP 15; TEMP 36.9; O2SAT 97; BMI 29.8
--- NOTE | 2021-02-24 09:07 | W.ED.EXTPRO ---
HPI - Extremity Problem General: Chief complaint: Extremity Injury, Lower Stated complaint: R FOOT PAIN/SWELLING Time Seen by Provider: 02/24/21 08:44 Source: patient Mode of arrival: ambulatory Limitations: no limitations History of Present Illness: HPI Narrative: Patient is a 70-year-old male who presents to the ED today with a complaint of right foot pain and swelling. Patient has chronically had issues with his right foot. He has seen Dr. Day several times previously. His last few appointments he has been a no-show. 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 Dr. Day also had been seeing him for a wound to the right foot which is now healed. Patient states foot has been swollen over the past 2 to 3 weeks. He tells me he went to the orthopedic clinic today and was told to come to the ED for a referral back to Dr. Day (?). Patient has not noticed any redness or warmth to the foot. No new wounds or blisters. MD Complaint: extremity pain and extremity swelling Onset (ago): week(s) Pain Consistency: constant Location: right and lower extremity Radiation: none Associated symptoms: Reports no associated symptoms; Deny chest pain, fever(s) or rash Review of Systems Const: Denies: fever(s), chills, body aches, fatigue or malaise Card: Denies: chest pain Resp: Denies: dyspnea Musc: Reports: extremity pain (R foot) and extremity swelling (R foot); Denies: joint redness or joint warmth Skin/Breast: Denies: rash Neuro: Denies: numbness in extremities, weakness in extremities or sensory changes [facility] ED PFSH: Medical History Acute renal failure CKD stage 2 due to type 1 diabetes mellitus Diabetes mellitus -insulin dependent Enterocolitis History of bladder cancer Hx of intestinal obstruction Obesity (BMI 30.0-34.9) PETER (obstructive sleep apnea) Parastomal hernia Poorly controlled diabetes mellitus -hx of IDDM type II, uncontrolled, complicated by peripheral neuropathy and nephropathy -A1c-11.5 -Accuchecks, ISS, hypoglycemia precautions. BG well controlled with scheduled insulin -consistent carb diet as tolerated Pyelonephritis -UA indicative of infection -evidence of mild focal R pyelonephritis on CT -urine cx: Klebsiella oxytoca, sensitivity noted -blood cx: 2 bottles positive for klebsiella oxytoca; repeat set prelim negative -associated sepsis given tachycardia, leukocytosis, fever, pro-calcitonin elevated (1.35). Sepsis now resolved -continue to monitor vital signs; stable -minimal leukocytosis -has urostomy secondary to hx of bladder cancer; continue to monitor urine output -continue Ceftriaxone; will d/c on levaquin -off IVF as oral intake has improved Sepsis Surgical History History of cholecystectomy History of esophageal hernia repair History of shoulder surgery History of urostomy Family History Other Hypertension Social History Smoking and tobacco status: former smoker Alcohol intake: never Marital status: / Current occupational status: disabled History of recent travel: No Current gender identity: Male Physical Exam Const: COMMON NORMALS: no acute distress, patient oriented x3, no limitations and alert GENERAL APPEARANCE: cooperative Extremity: COMMON NORMALS: capillary refill normal, no clubbing, cyanosis or edema and no calf tenderness GENERAL: Yes normal exam except as noted RIGHT LOWER EXTREMITY: Yes foot & digits and Yes foot & digits OTHER: pt has mild swelling throughout ankle and dorsum of R foot; there is no redness/warmth/streaking or evidence for infection; no skin wounds/breakdown Neuro: COMMON NORMALS: patient oriented x3, moves all extremities, no focal motor deficits and no sensory deficits noted SENSORIUM/ORIENTATION: Yes alert Skin: COMMON NORMALS: no rashes or lesions noted GENERAL SKIN EXAM: no rashes or lesions noted TRAUMA: no lacerations or abrasions Course Vital Signs: Vital signs: Vital Signs Temperature 98.5 F 02/24/21 09:15 Pulse Rate 91 02/24/21 09:15 Respiratory Rate 16 02/24/21 09:15 Blood Pressure 175/96 02/24/21 09:15 Pulse Oximetry 98 02/24/21 09:15 MDM - Extremity (Nontraumatic) MDM Narrative: Medical decision making narrative: Patient states symptoms have been present for several weeks. I don't see any evidence for infection at this time. XR normal. 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 Return to ED precautions given. Imaging Data^: XR R foot: Radiologist's impression: [id number] [facility].[place], [place] [address]EQqt ReportSigned Patient: Cole Troncoso #: [id number]: 1950cct#:[id number]/Sex: 70 / MADM Date: 02/24/21Loc: ERRoom/Bed:Attending Dr: Ordering Provider/Ordering MD: Gladys Taylor Date of Service: 02/24/21 Procedure(s): XR foot RT min 3V* [id number] Accession Number(s): [id number] Report Number: [id number] WS: [id number] Exam: XR foot RT min 3V* [id number] Date/Time of Exam: 02/24/2021 9:15 AM Reason For Exam: pain/swelling No acute fracture or dislocation. There is bone spurring along the dorsal margin of the distal first metatarsal. Degenerative changes in the midfoot joints. Small calcaneal spur. Normal soft tissues. No change since 02/03/2021. XR/XR foot RT min 3V* 01543 IMPRESSION: 1. Minimal degenerative changes. No fracture or dislocation. Dictated By:Blayne Gonsalez, ANGIEigned By:Blayne Gonsalez, DOSagustina Date/Time:02/24/21923DD/ 9 Discharge Plan Discharge Patient Disposition: Home Clinical Impression: Swelling of right foot Condition: Stable Prescriptions: No Action ipratropium bromide 42 mcg (0.06 %) spray,non-aerosol 2 spray INTRANASAL PRN RF: 0 insulin detemir U-100 100 unit/mL (3 mL) insulin pen 40 unit SUBCUT BID Qty: 15 RF: 3 fluticasone propion-salmeterol [Advair Diskus] 500-50 mcg/dose blister with device 1 inh inhalation BID Qty: 60 RF: 12 tramadol 100 mg tablet 100 mg PO Q6H PRN (Reason: pain) Qty: 60 RF: 5 (DME) custom molded accommodative orthotic See Rx Instructions .ROUTE .MEDSUPPLY Qty: 1 RF: 0 naproxen 500 mg tablet 500 mg PO BID Qty: 60 RF: 0 (DME) custom molded orthotics See Rx Instructions .ROUTE .MEDSUPPLY Qty: 1 RF: 0 sulfamethoxazole-trimethoprim [Bactrim DS] 800-160 mg tablet 1 tab PO Q12H 10 Days Qty: 20 RF: 0 clindamycin HCl 300 mg capsule 300 mg PO TID 7 Days Qty: 21 RF: 0 ciprofloxacin HCl [Cipro] 500 mg tablet 500 mg PO BID 7 Days Qty: 14 RF: 0 (DME) Cam boot to right See Rx Instructions .Route .MEDSUPPLY Qty: 1 RF: 0 ropinirole 4 mg tablet 8 mg PO BID Qty: 180 RF: 3 midodrine 5 mg tablet 5 mg PO BID Qty: 90 RF: 0 Jentadueto 2.5-1,000 mg tablet 1 tab PO BID Qty: 180 RF: 3 albuterol sulfate 90 mcg/actuation HFA aerosol inhaler 2 inh INHALATION Q4H PRN (Reason: shortness of breath or wheezing) Qty: 18 RF: 0 Discharge Orders: Discharge ED (Routine); Ordered 02/24/21 Ordered By: Gladys Taylor Referrals: Mian Back MD [Primary Care Provider] - Noble Day DPM [Physician] - 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
--- NOTE | 2021-02-24 09:10 | XR_ITS ---
WS: [id number] Exam: XR foot RT min 3V* [id number] Date/Time of Exam: 02/24/2021 9:15 AM Reason For Exam: pain/swelling No acute fracture or dislocation. There is bone spurring along the dorsal margin of the distal first metatarsal. Degenerative changes in the midfoot joints. Small calcaneal spur. Normal soft tissues. No change since 02/03/2021. XR/XR foot RT min 3V* 66427 IMPRESSION: 1. Minimal degenerative changes. No fracture or dislocation.
[2021-02-24 09:15] VITALS: BP 175/96; PULSE 91; RESP 16; TEMP 36.9; O2SAT 98
--- NOTE | 2021-02-24 12:35 | DCPLANNER ---
Addendum entered by Samira Real 04/24/21 17:30: Patient had a follow up appointment scheduled with ortho - patient did attend appointment. Original Note: technical support manager had message to schedule a follow up appointment for patient with ortho. technical support manager called the ortho clinic, spoke with Lula, gave clinic patients information. technical support manager was told that patients information would be printed and reviewed. Clinic will call patient with appointment information.
== END 2021-02-24 11:00 | disposition home or self-care (01) ==
PROVIDERS: Emergency Provider Physician Assistant; PCP Internal Medicine
DX: M79.89 Other specified soft tissue disorders (principal); Z79.4 Long term (current) use of insulin; E10.22 Type 1 diabetes mellitus with diabetic chronic kidney disease; N18.2 Chronic kidney disease, stage 2 (mild); Z85.51 Personal history of malignant neoplasm of bladder; Z87.891 Personal history of nicotine dependence
CPT/HCPCS: 73630; 99282; 99291

== ENCOUNTER → 2021-03-20 13:36 | Outpatient (BNVA) | payer MEDICARE, MEDICAID, SELFPAY | PROVIDERS: PCP Internal Medicine; Visit Provider Podiatrist Foot & Ankle Surgery | DX: M79.671 Pain in right foot (principal); M21.611 Bunion of right foot; Z46.89 Encounter for fitting and adjustment of other specified devices; S92.251D Displaced fracture of navicular [scaphoid] of right foot, subsequent encounter for fracture with routine healing; X58.XXXD Exposure to other specified factors, subsequent encounter | CPT/HCPCS: 73630; 97760; L4361 ==

== ENCOUNTER 2021-03-20 15:14 | Outpatient (CLI) | payer MEDICARE, MEDICAID, SELFPAY | END 2021-03-20 15:15 | disposition home or self-care (01) | LOC: SPT 15:15 | PROVIDERS: PCP Internal Medicine; Visit Provider Podiatrist Foot & Ankle Surgery | DX: Z46.89 Encounter for fitting and adjustment of other specified devices (principal); S92.251D Displaced fracture of navicular [scaphoid] of right foot, subsequent encounter for fracture with routine healing; X58.XXXD Exposure to other specified factors, subsequent encounter | CPT/HCPCS: 97760; L4361 ==

== ENCOUNTER 2021-03-28 07:53 | Outpatient (CLI) | payer MEDICARE, MEDICAID, SELFPAY ==
--- NOTE | 2021-03-28 08:00 | CT_ITS ---
WS: [id number] NONCONTRAST CT RIGHT FOOT TECHNIQUE: Noncontrast CT right foot with coronal and sagittal reformatted images. CLINICAL INFORMATION: right foot injury COMPARISON: None. DLP: 758.[address] scans at [facility] use at least one of these dose optimization techniques: automated e xposure control; mA and/or kV adjustment per patient size (includes targeted exams where dose is matc hed to clinical indication); or iterative reconstruction. FINDINGS: Normal ankle mortise. Talar dome is normal. Tiny plantar calcaneal spur. Normal talo-calcaneal articu lation. Normal cuboid. Comminuted fractures involving the intermediate and lateral cuneiforms. Chroni c subchondral cystic change involving the cuneiforms. Subchondral cystic change involving the navicul ar and articulating tarsal bones. Normal talonavicular articulation. Normal metatarsals. Metatarsal heads are normal. No other visualized fractures. IMPRESSION: 1. Comminuted fractures involving the intermediate and lateral cuneiforms with superimposed subchond ral cystic changes. 2. No other acute fractures. 3. Degenerative subchondral cystic change involving the tarsal bones. 4. Normal ankle mortise. 5. Tiny plantar calcaneal spur. 6. Normal talar dome. Normal medial and lateral malleolus. 7. Diffuse soft tissue edema involving the dorsal foot soft tissues.
== END 2021-03-28 07:54 | disposition home or self-care (01) ==
PROVIDERS: PCP Internal Medicine; Visit Provider Podiatrist Foot & Ankle Surgery
DX: S92.231A Displaced fracture of intermediate cuneiform of right foot, initial encounter for closed fracture (principal); S92.221A Displaced fracture of lateral cuneiform of right foot, initial encounter for closed fracture; X58.XXXA Exposure to other specified factors, initial encounter; M77.31 Calcaneal spur, right foot; R60.0 Localized edema
CPT/HCPCS: 73700

== ENCOUNTER 2021-03-30 06:43 | Emergency (ER) | payer MEDICARE, MEDICAID, SELFPAY ==
[2021-03-30 06:51] VITALS: BP 180/108; PULSE 95; RESP 16; TEMP 36.7; O2SAT 99; BMI 31.1
--- NOTE | 2021-03-30 07:42 | ED_ITS ---
HPI - Overdose General: Chief Complaint: Overdose Stated Complaint: leg pains, pt thinks took too many pain relievers Time Seen by Provider: 03/30/21 07:42 PFSH ED PFSH: Medical History Acute renal failure CKD stage 2 due to type 1 diabetes mellitus Diabetes mellitus -insulin dependent Enterocolitis History of bladder cancer Hx of intestinal obstruction Obesity (BMI 30.0-34.9) PETER (obstructive sleep apnea) Parastomal hernia Poorly controlled diabetes mellitus -hx of IDDM type II, uncontrolled, complicated by peripheral neuropathy and nephropathy -A1c-11.5 -Accuchecks, ISS, hypoglycemia precautions. BG well controlled with scheduled insulin -consistent carb diet as tolerated Pyelonephritis -UA indicative of infection -evidence of mild focal R pyelonephritis on CT -urine cx: Klebsiella oxytoca, sensitivity noted -blood cx: 2/2 bottles positive for klebsiella oxytoca; repeat set prelim negative -associated sepsis given tachycardia, leukocytosis, fever, pro-calcitonin elevated (1.35). Sepsis now resolved -continue to monitor vital signs; stable -minimal leukocytosis -has urostomy secondary to hx of bladder cancer; continue to monitor urine output -continue Ceftriaxone; will d/c on levaquin -off IVF as oral intake has improved Sepsis Surgical History History of cholecystectomy History of esophageal hernia repair History of shoulder surgery History of urostomy Family History Other Hypertension Social History Alcohol intake: never Marital status: / Current occupational status: disabled History of recent travel: No Current gender identity: Male Course Vital Signs: Vital signs: Vital Signs Temperature 98.0 F 03/30/21 06:51 Pulse Rate 95 03/30/21 06:51 Respiratory Rate 16 03/30/21 06:51 Blood Pressure 180/108 03/30/21 06:51 Pulse Oximetry 99 03/30/21 06:51 Discharge Plan Discharge Prescriptions: No Action ipratropium bromide 42 mcg (0.06 %) spray,non-aerosol 2 spray INTRANASAL PRN RF: 0 insulin detemir U-100 100 unit/mL (3 mL) insulin pen 40 unit SUBCUT BID Qty: 15 RF: 3 fluticasone propion-salmeterol [Advair Diskus] 500-50 mcg/dose blister with device 1 inh inhalation BID Qty: 60 RF: 12 tramadol 100 mg tablet 100 mg PO Q6H PRN (Reason: pain) Qty: 60 RF: 5 (DME) custom molded accommodative orthotic See Rx Instructions .ROUTE .MEDSUPPLY Qty: 1 RF: 0 naproxen 500 mg tablet 500 mg PO BID Qty: 60 RF: 0 (DME) custom molded orthotics See Rx Instructions .ROUTE .MEDSUPPLY Qty: 1 RF: 0 sulfamethoxazole-trimethoprim [Bactrim DS] 800-160 mg tablet 1 tab PO Q12H 10 Days Qty: 20 RF: 0 clindamycin HCl 300 mg capsule 300 mg PO TID 7 Days Qty: 21 RF: 0 ciprofloxacin HCl [Cipro] 500 mg tablet 500 mg PO BID 7 Days Qty: 14 RF: 0 (DME) Cam boot to right See Rx Instructions .Route .MEDSUPPLY Qty: 1 RF: 0 (DME) cam boot See Rx Instructions .Route .MEDSUPPLY Qty: 1 RF: 0 ropinirole 4 mg tablet 8 mg PO BID Qty: 180 RF: 3 midodrine 5 mg tablet 5 mg PO BID Qty: 90 RF: 0 Jentadueto 2.5-1,000 mg tablet 1 tab PO BID Qty: 180 RF: 3 albuterol sulfate 90 mcg/actuation HFA aerosol inhaler 2 inh INHALATION Q4H PRN (Reason: shortness of breath or wheezing) Qty: 18 RF: 0 Coding Level of Care Code ED Consulting It Architect for [facility] Ansari
--- NOTE | 2021-03-30 07:44 | W.ED.OVERDOS ---
Documented by User: Judy Menjivar PA-C 03/30/21 10:50 HPI - Overdose General: Chief Complaint: Overdose Stated Complaint: leg pains, pt thinks took too many pain relievers Time Seen by Provider: 03/30/21 07:42 Source: patient Mode of arrival: ambulatory Limitations: no limitations History of Present Illness: HPI Narrative: 70-year-old male presents to the ER today for leg cramps with a overdose of ngsn-azm-xinnslf medications. Patient reports he has had severe leg cramps since yesterday and about 3 PM took Lizzy's leg cramp homeopathic medication. Patient reports he took about 12 of them. Patient reports after taking them he did become nauseous and have some dizziness however his leg cramps seem to worsen rather than get any better. Patient reports he ran out of Requip yesterday. Patient reports he was unable to sleep due to severe leg cramps and restless leg syndrome. Patient presented to ER concerned with the overdose of the medication. Patient denies headache, fever, chills, chest pain, shortness of breath, vomiting, diarrhea, constipation. Onset (ago): hour(s) (16) Intent: other Associated symptoms: dizziness and nausea/vomiting Review of Systems General: Reports: 10 or more systems reviewed and unremarkable except in HPI and below PFSH ED PFSH: Medical History Acute renal failure CKD stage 2 due to type 1 diabetes mellitus Diabetes mellitus -insulin dependent Enterocolitis History of bladder cancer Hx of intestinal obstruction Obesity (BMI 30.0-34.9) PETER (obstructive sleep apnea) Parastomal hernia Poorly controlled diabetes mellitus -hx of IDDM type II, uncontrolled, complicated by peripheral neuropathy and nephropathy -A1c-11.5 -Accuchecks, ISS, hypoglycemia precautions. BG well controlled with scheduled insulin -consistent carb diet as tolerated Pyelonephritis -UA indicative of infection -evidence of mild focal R pyelonephritis on CT -urine cx: Klebsiella oxytoca, sensitivity noted -blood cx: 2/2 bottles positive for klebsiella oxytoca; repeat set prelim negative -associated sepsis given tachycardia, leukocytosis, fever, pro-calcitonin elevated (1.35). Sepsis now resolved -continue to monitor vital signs; stable -minimal leukocytosis -has urostomy secondary to hx of bladder cancer; continue to monitor urine output -continue Ceftriaxone; will d/c on levaquin -off IVF as oral intake has improved Sepsis Surgical History History of cholecystectomy History of esophageal hernia repair History of shoulder surgery History of urostomy Family History Other Hypertension Social History Alcohol intake: never Marital status: / Current occupational status: disabled History of recent travel: No Current gender identity: Male Physical Exam Const: COMMON NORMALS: average body habitus and patient oriented x3 GENERAL APPEARANCE: cooperative and anxious; not comfortable Eye: COMMON NORMALS: conjunctivae normal CONJUNCTIVA: Yes conjunctivae normal Lymph: LYMPHATIC: no lymphadenopathy noted Resp: COMMON NORMALS: normal respiratory effort, No retractions and clear to auscultation bilaterally EFFORT & INSPECTION: Yes able to speak in complete sentences AUSCULTATION: clear to auscultation bilaterally, no rales, no rhonchi and no wheezes Cardio: COMMON NORMALS: regular rate and regular rhythm RATE: regular rate RHYTHM: regular rhythm GI: COMMON NORMALS: Normal to inspection, nondistended, normoactive bowel sounds present, Soft to palpation and non-tender PALPATION: Yes Soft to palpation Back/Pelvis: COMMON NORMALS: thoracic and lumbar spine normal to inspection, no thoracic nor lumbar tenderness and thoraco-lumbar ROM normal Extremity: OTHER: Patient's legs in constant motion while he lays on the bed. Patient is wearing a boot on his right foot from a prior injury. Neuro: COMMON NORMALS: patient oriented x3, moves all extremities and no sensory deficits noted Psych: COMMON NORMALS: mental status grossly normal, Normal thought process present and cooperative THOUGHT PROCESS: Normal thought process present Skin: COMMON NORMALS: no rashes or lesions noted GENERAL SKIN EXAM: no rashes or lesions noted Course ED course: Patient presents to the ER today for restless legs and a possible overdose on oitv-zxj-rcwgtww medications that he took for his leg cramps. Will contact poison control and do lab work at this time. We will go ahead and give patient a dose of the Requip at this time. Consultations: Consultation #1: Contacted poison control and they report no toxic effects with this medication. Time: :53 Vital Signs: Vital signs: Vital Signs Temperature 98.0 F 03/30/21 06:51 Pulse Rate 87 03/30/21 11:00 Respiratory Rate 16 03/30/21 11:00 Blood Pressure 150/106 03/30/21 11:00 Pulse Oximetry 96 03/30/21 11:00 MDM - Overdose MDM Narrative: Medical decision making narrative: 70-year-old male presents to the ER today for worsened restless leg syndrome and an overdose on sean-oqo-gnfniqv medications for restless leg. This was at [facility]. Patient reports he took 12 of those at 3 PM yesterday and after that had nausea and worsened restless leg syndrome patient reported some dizziness. Patient reports nausea and dizziness have resolved at this time however the leg pain and restlessness has not. Patient was in constant motion on exam. Labs were mostly unremarkable other than patient did have an elevated CK likely due to the constant motion of his legs. Patient given a bolus of fluids. Will give ropinirole in the ER and send patient home with a prescription for one for tonight however he should contact his PCP tomorrow for a refill as he is on a high dose of this. Increase fluid intake at home. Return to the ER with any new or worsening symptoms. Follow-up with PCP in 2 to 3 days. Patient verbalized understanding and is in agreement with the treatment plan. Lab Data: Attestation: I reviewed the patient's lab results. Lab results narrative: Elevated CK Labs: Lab Results 03/30/21 03/30/21 09:11 09:11 WBC 8.6 10^3/uL 10^3/ uL (4.0-10.0) RBC 5.65 10^6/uL H 10 ^6/uL (4.1-5.3) Hgb 16.8 g/dL H g/dL (11.7-16.6) Hct 49.6 % % (42.0-52.0) MCV 87.8 fl fl (80-94) MCH 29.7 pg pg (28.0-34.0) MCHC 33.9 g/dL g/dL (30.0-36.0) RDW 12.4 % % (12.1-15.1) Plt Count 176 10^3/cmm 10^3 /cmm (130-400) MPV 10.5 fL H fL (7.4-10.4) Neut % (Auto) 53.6 % % Lymph % (Auto) 22.5 % % [place] % (Auto) 16.9 % % Eos % (Auto) 5.2 % % Baso % (Auto) 1.5 % % Neut # (Auto) 4.63 10^3/uL 10^3 /uL (1.8-7.7) Lymph # (Auto) 1.9 10^3/uL 10^3/ uL (0.8-4.8) [place] # (Auto) 1.5 10^3/uL H 10^ 3/uL (0.2-0.9) Eos # (Auto) 0.5 10^3/uL 10^3/ uL (0.0-0.8) Baso # (Auto) 0.1 10^3/uL 10^3/ uL (0.0-0.1) Nucleated RBC % (a uto) 0 % % Nucleated RBCs # 0.0 /100WBC /100W BC Sodium 135 mmol/L L mmol /L (136-145) Potassium 4.7 mmol/L mmol/L (3.5-5.1) Chloride 97 mmol/L L mmol/ L (98-107) Carbon Dioxide 27 mmol/L mmol/L (22-29) Anion Gap 15.7 (5-19) BUN 21 mg/dL mg/dL (8-23) Creatinine 1.0 mg/dL mg/dL (0.7-1.2) GFR Calculation 73.9 mL/min L mL/ min (90-130) Glucose 185 mg/dL H mg/dL (65-115) Calculated Osmolal ity 288 mOsm/kg mOsm/ kg (285-295) Calcium 9.3 mg/dL mg/dL (8.5-10.5) Total Bilirubin 0.4 mg/dL mg/dL (0.15-1.2) AST 24 U/L U/L (0-40) ALT 22 U/L U/L (0-41) Alkaline Phosphata se 109 IU/L IU/L (40-130) Creatine Kinase 484 U/L H* U/L (39-308) Total Protein 8.2 g/dL g/dL (6.6-8.7) Albumin 4.5 g/dL g/dL (3.5-5.2) Globulin 3.7 g/dL g/dL (1.3-4.6) Critical Care Time Critical Care Time: Critical Care Time: No Discharge Plan Discharge Patient Disposition: Home Clinical Impression: Restless leg syndrome, Elevated CK Condition: Stable Prescriptions: New ropinirole 4 mg tablet 4 mg PO DAILY Qty: 1 RF: 0 No Action ipratropium bromide 42 mcg (0.06 %) spray,non-aerosol 2 spray INTRANASAL PRN RF: 0 insulin detemir U-100 100 unit/mL (3 mL) insulin pen 40 unit SUBCUT BID Qty: 15 RF: 3 fluticasone propion-salmeterol [Advair Diskus] 500-50 mcg/dose blister with device 1 inh inhalation BID Qty: 60 RF: 12 tramadol 100 mg tablet 100 mg PO Q6H PRN (Reason: pain) Qty: 60 RF: 5 (DME) custom molded accommodative orthotic See Rx Instructions .ROUTE .MEDSUPPLY Qty: 1 RF: 0 (DME) custom molded orthotics See Rx Instructions .ROUTE .MEDSUPPLY Qty: 1 RF: 0 (DME) Cam boot to right See Rx Instructions .Route .MEDSUPPLY Qty: 1 RF: 0 (DME) cam boot See Rx Instructions .Route .MEDSUPPLY Qty: 1 RF: 0 Jentadueto 2.5-1,000 mg tablet 1 tab PO BID Qty: 180 RF: 3 ropinirole 4 mg tablet 8 mg PO BID Qty: 180 RF: 3 albuterol sulfate 90 mcg/actuation HFA aerosol inhaler 2 inh INHALATION Q4H PRN (Reason: shortness of breath or wheezing) Qty: 18 RF: 0 naproxen 500 mg tablet 500 mg PO BID PRN (Reason: Pain) RF: 0 Discharge Orders: Discharge ED (Routine); Ordered 03/30/21 Ordered By: Judy Menjivar Referrals: Mian Back MD [Primary Care Provider] - Discharge Diet: Advance as tolerated Discharge Activity: Resume usual activity Patient Instructions: Opioid Safety Activity Restrictions/Additional Instructions: Take ropinirole as prescribed and contact PCP tomorrow for refill on prior prescription. Do not take any more nvem-omj-pynzdvv medications for restless leg syndrome. Increase fluid intake at this time. Return to the ER with any new or worsening symptoms. Follow-up with PCP in 3 to 5 days. Coding Level of Care Code ED International Account Representative for Chg Fwd Exam Comprehensive Documented by User: Jose Manuel Denson MD 04/05/21 20:19 HPI - Overdose General: Chief Complaint: Overdose Stated Complaint: leg pains, pt thinks took too many pain relievers Time Seen by Provider: 03/30/21 07:42 PFSH ED PFSH: Medical History Acute renal failure CKD stage 2 due to type 1 diabetes mellitus Diabetes mellitus -insulin dependent Enterocolitis History of bladder cancer Hx of intestinal obstruction Obesity (BMI 30.0-34.9) EPTER (obstructive sleep apnea) Parastomal hernia Poorly controlled diabetes mellitus -hx of IDDM type II, uncontrolled, complicated by peripheral neuropathy and nephropathy -A1c-11.5 -Accuchecks, ISS, hypoglycemia precautions. BG well controlled with scheduled insulin -consistent carb diet as tolerated Pyelonephritis -UA indicative of infection -evidence of mild focal R pyelonephritis on CT -urine cx: Klebsiella oxytoca, sensitivity noted -blood cx: 2/2 bottles positive for klebsiella oxytoca; repeat set prelim negative -associated sepsis given tachycardia, leukocytosis, fever, pro-calcitonin elevated (1.35). Sepsis now resolved -continue to monitor vital signs; stable -minimal leukocytosis -has urostomy secondary to hx of bladder cancer; continue to monitor urine output -continue Ceftriaxone; will d/c on levaquin -off IVF as oral intake has improved Sepsis Surgical History History of cholecystectomy History of esophageal hernia repair History of shoulder surgery History of urostomy Family History Other Hypertension Social History Alcohol intake: never Marital status: / Current occupational status: disabled History of recent travel: No Current gender identity: Male Course Vital Signs: Vital signs: Vital Signs Temperature 98.0 F 03/30/21 06:51 Pulse Rate 87 03/30/21 11:00 Respiratory Rate 16 03/30/21 11:00 Blood Pressure 150/106 03/30/21 11:00 Pulse Oximetry 96 03/30/21 11:00 MDM - Overdose MDM Narrative: Medical decision making narrative: I discussed this case with ETHEL Randolph. CK is mildly elevated likely secondary to restless leg, patient tolerating p.o. intake, encourage good hydration and close outpatient follow-up with strict return precautions. Jose Manuel Denson MD Emergency Medicine Lab Data: Labs: Lab Results 03/30/21 03/30/21 09:11 09:11 WBC 8.6 10^3/uL 10^3/ uL (4.0-10.0) RBC 5.65 10^6/uL H 10 ^6/uL (4.1-5.3) Hgb 16.8 g/dL H g/dL (11.7-16.6) Hct 49.6 % % (42.0-52.0) MCV 87.8 fl fl (80-94) MCH 29.7 pg pg (28.0-34.0) MCHC 33.9 g/dL g/dL (30.0-36.0) RDW 12.4 % % (12.1-15.1) Plt Count 176 10^3/cmm 10^3 /cmm (130-400) MPV 10.5 fL H fL (7.4-10.4) Neut % (Auto) 53.6 % % Lymph % (Auto) 22.5 % % [place] % (Auto) 16.9 % % Eos % (Auto) 5.2 % % Baso % (Auto) 1.5 % % Neut # (Auto) 4.63 10^3/uL 10^3 /uL (1.8-7.7) Lymph # (Auto) 1.9 10^3/uL 10^3/ uL (0.8-4.8) [place] # (Auto) 1.5 10^3/uL H 10^ 3/uL (0.2-0.9) Eos # (Auto) 0.5 10^3/uL 10^3/ uL (0.0-0.8) Baso # (Auto) 0.1 10^3/uL 10^3/ uL (0.0-0.1) Nucleated RBC % (a uto) 0 % % Nucleated RBCs # 0.0 /100WBC /100W BC Sodium 135 mmol/L L mmol /L (136-145) Potassium 4.7 mmol/L mmol/L (3.5-5.1) Chloride 97 mmol/L L mmol/ L (98-107) Carbon Dioxide 27 mmol/L mmol/L (22-29) Anion Gap 15.7 (5-19) BUN 21 mg/dL mg/dL (8-23) Creatinine 1.0 mg/dL mg/dL (0.7-1.2) GFR Calculation 73.9 mL/min L mL/ min (90-130) Glucose 185 mg/dL H mg/dL (65-115) Calculated Osmolal ity 288 mOsm/kg mOsm/ kg (285-295) Calcium 9.3 mg/dL mg/dL (8.5-10.5) Total Bilirubin 0.4 mg/dL mg/dL (0.15-1.2) AST 24 U/L U/L (0-40) ALT 22 U/L U/L (0-41) Alkaline Phosphata se 109 IU/L IU/L (40-130) Creatine Kinase 484 U/L H* U/L (39-308) Total Protein 8.2 g/dL g/dL (6.6-8.7) Albumin 4.5 g/dL g/dL (3.5-5.2) Globulin 3.7 g/dL g/dL (1.3-4.6) Discharge Plan Discharge Patient Disposition: Home Clinical Impression: Restless leg syndrome, Elevated CK Condition: Stable Prescriptions: New ropinirole 4 mg tablet 4 mg PO DAILY Qty: 1 RF: 0 No Action ipratropium bromide 42 mcg (0.06 %) spray,non-aerosol 2 spray INTRANASAL PRN RF: 0 insulin detemir U-100 100 unit/mL (3 mL) insulin pen 40 unit SUBCUT BID Qty: 15 RF: 3 fluticasone propion-salmeterol [Advair Diskus] 500-50 mcg/dose blister with device 1 inh inhalation BID Qty: 60 RF: 12 tramadol 100 mg tablet 100 mg PO Q6H PRN (Reason: pain) Qty: 60 RF: 5 (DME) custom molded accommodative orthotic See Rx Instructions .ROUTE .MEDSUPPLY Qty: 1 RF: 0 (DME) custom molded orthotics See Rx Instructions .ROUTE .MEDSUPPLY Qty: 1 RF: 0 (DME) Cam boot to right See Rx Instructions .Route .MEDSUPPLY Qty: 1 RF: 0 (DME) cam boot See Rx Instructions .Route .MEDSUPPLY Qty: 1 RF: 0 Jentadueto 2.5-1,000 mg tablet 1 tab PO BID Qty: 180 RF: 3 ropinirole 4 mg tablet 8 mg PO BID Qty: 180 RF: 3 albuterol sulfate 90 mcg/actuation HFA aerosol inhaler 2 inh INHALATION Q4H PRN (Reason: shortness of breath or wheezing) Qty: 18 RF: 0 naproxen 500 mg tablet 500 mg PO BID PRN (Reason: Pain) RF: 0 Discharge Orders: Discharge ED (Routine); Ordered 03/30/21 Ordered By: Judy Menjivar Referrals: Mian Back MD [Primary Care Provider] - Discharge Diet: Advance as tolerated Discharge Activity: Resume usual activity Patient Instructions: Opioid Safety Activity Restrictions/Additional Instructions: Take ropinirole as prescribed and contact PCP tomorrow for refill on prior prescription. Do not take any more xlri-gwg-ixbzavr medications for restless leg syndrome. Increase fluid intake at this time. Return to the ER with any new or worsening symptoms. Follow-up with PCP in 3 to 5 days. Coding Level of Care Code ED International Account Representative for [employer] Fwd Exam Comprehensive
[2021-03-30] MEDS: ropinirole 1 mg Tablet 4 MG PO (09:06)
[2021-03-30 09:12] VITALS: BP 169/96; PULSE 100; RESP 16; O2SAT 95
[2021-03-30 09:23] LABS: Basophils # 0.1 10^3/uL (0.0-0.1); Basophils % 1.5 %; Eosinophils # 0.5 10^3/uL (0.0-0.8); Eosinophils % 5.2 %; Hematocrit 49.6 % (42.0-52.0); Hemoglobin 16.8 g/dL (11.7-16.6); Lymphocytes # 1.9 10^3/uL (0.8-4.8); Lymphocytes % 22.5 %; Mean Corpuscular HGB Conc 33.9 g/dL (30.0-36.0); Mean Corpuscular Hemoglobin 29.7 pg (28.0-34.0); Mean Corpuscular Volume 87.8 fl (80-94); Mean Platelet Volume 10.5 fL (7.4-10.4); Monocytes # 1.5 10^3/uL (0.2-0.9); Monocytes % 16.9 %; Neutrophils # 4.63 10^3/uL (1.8-7.7); Neutrophils % 53.6 %; Nucleated Red Blood Cells % 0 %; Platelet Count 176 10^3/cmm (130-400); Red Blood Count 5.65 10^6/uL (4.1-5.3); Red Cell Distribution Width 12.4 % (12.1-15.1); White Blood Count 8.6 10^3/uL (4.0-10.0)
[2021-03-30 09:43] LABS: Alanine Aminotransferase 22 U/L (0-41); Albumin Level 4.5 g/dL (3.5-5.2); Alkaline Phosphatase 109 IU/L (40-130); Anion Gap 15.7 (5-19); Aspartate Amino Transferase 24 U/L (0-40); Blood Urea Nitrogen 21 mg/dL (8-23); Calcium 9.3 mg/dL (8.5-10.5); Carbon Dioxide 27 mmol/L (22-29); Chloride 97 mmol/L (98-107); Globulin 3.7 g/dL (1.3-4.6); Glomerular Filtration Rate 73.9 mL/min (90-130); Glucose 185 mg/dL (65-115); Osmolality Calculated 288 mOsm/kg (285-295); Potassium 4.7 mmol/L (3.5-5.1); Sodium 135 mmol/L (136-145); Total Bilirubin 0.4 mg/dL (0.15-1.2); Total Protein 8.2 g/dL (6.6-8.7)
[2021-03-30 09:52] LABS: Creatine Phosphokinase 484 U/L (39-308)
[2021-03-30] MEDS: sodium chloride 0.9% 1,000 ML 999 ML IV (10:24)
[2021-03-30 11:00] VITALS: BP 150/106; PULSE 87; RESP 16; O2SAT 96
== END 2021-03-30 11:31 | disposition home or self-care (01) ==
PROVIDERS: Emergency Provider Physician Assistant; PCP Internal Medicine
DX: G25.81 Restless legs syndrome (principal); R74.8 Abnormal levels of other serum enzymes; E11.22 Type 2 diabetes mellitus with diabetic chronic kidney disease; E11.42 Type 2 diabetes mellitus with diabetic polyneuropathy; N18.2 Chronic kidney disease, stage 2 (mild); G47.33 Obstructive sleep apnea (adult) (pediatric); E66.9 Obesity, unspecified; Z68.31 Body mass index [BMI] 31.0-31.9, adult; Z79.1 Long term (current) use of non-steroidal anti-inflammatories (NSAID); Z79.891 Long term (current) use of opiate analgesic; Z79.4 Long term (current) use of insulin
CPT/HCPCS: 36415; 80053; 82550; 85025; 96360; 99284; J7030

== ENCOUNTER 2021-04-13 17:48 | Emergency (ER) | payer MEDICARE, MEDICAID, SELFPAY ==
[2021-04-13 18:06] VITALS: BP 119/74; PULSE 101; RESP 18; TEMP 37.1; O2SAT 97; BMI 29.8
--- NOTE | 2021-04-13 18:17 | XRR_ITS ---
PROCEDURE INFORMATION: Exam: XR Right Elbow Exam date and time: 04/13/2021 6:17 PM Age: 70 years old Clinical indication: Pain and injury or trauma; Fall; Elbow; Right; Swelling (edema); Additional info: Fall injury, pain and swelling TECHNIQUE: Imaging protocol: XR Right elbow. Views: 3 or more views. COMPARISON: No relevant prior studies available. FINDINGS: Bones/joints: Osteophytes of coronoid process. Unremarkable elbow joint alignment. Incomplete extension of the joint on the AP and oblique views precludes adequate assessment of the proximal radius and ulna. On the lateral view there is possibly a small defect in cortical bone of the posterior distal humerus. Soft tissues: Periarticular soft tissue swelling. XR/XR elbow RT min 3V* [id number] IMPRESSION: Cannot exclude a nondisplaced fracture of the distal humerus. Given the limitations in the exam, recommend CT scan of the right elbow for further clarification.
--- NOTE | 2021-04-13 21:21 | W.ED.FALL ---
Documented by User: ETHEL Torres 04/14/21 02:01 HPI - Fall General: Chief Complaint: Fall Stated Complaint: r arm injury Time Seen by Provider: 04/13/21 19:37 History of Present Illness: HPI Narrative: Patient is a 70-year-old male comes to the ED with right elbow injury. Patient says injury occurred after having a fall from the standing position. He tripped over a wire and he landed on right elbow. Fall occurred just prior to arrival. He now has pain that he rates a 9 out of 10 and right elbow with limited range of motion in right elbow as well. He also reports some swelling in the right elbow. Associated symptoms-after fall: Denies abdominal pain, chest pain, headache(s), hematuria or neck pain Review of Systems Const: Denies: fever(s), chills or fatigue Eyes: Denies: change in vision or eye discomfort ENMT: Denies: throat pain, odynophagia, nasal discharge or nasal congestion Card: Denies: chest pain, palpitations, edema, swelling of feet/ankles, dyspnea on exertion or orthopnea Resp: Denies: dyspnea, productive cough or non-productive cough GI: Denies: abdominal pain, nausea, vomiting, diarrhea, constipation or hematochezia : Denies: flank pain, difficulty urinating, dysuria or hematuria Musc: Reports: extremity pain (right elbow pain), extremity swelling (right elbow) and limited range of motion (right elbow); Denies: neck pain or back pain Skin/Breast: Denies: rash or new lesions Neuro: Denies: headache(s), numbness in extremities or weakness in extremities PFS ED PFSH: Medical History Acute renal failure CKD stage 2 due to type 1 diabetes mellitus Diabetes mellitus -insulin dependent Enterocolitis History of bladder cancer Hx of intestinal obstruction Obesity (BMI 30.0-34.9) PETER (obstructive sleep apnea) Parastomal hernia Poorly controlled diabetes mellitus -hx of IDDM type II, uncontrolled, complicated by peripheral neuropathy and nephropathy -A1c-11.5 -Accuchecks, ISS, hypoglycemia precautions. BG well controlled with scheduled insulin -consistent carb diet as tolerated Pyelonephritis -UA indicative of infection -evidence of mild focal R pyelonephritis on CT -urine cx: Klebsiella oxytoca, sensitivity noted -blood cx: 2/2 bottles positive for klebsiella oxytoca; repeat set prelim negative -associated sepsis given tachycardia, leukocytosis, fever, pro-calcitonin elevated (1.35). Sepsis now resolved -continue to monitor vital signs; stable -minimal leukocytosis -has urostomy secondary to hx of bladder cancer; continue to monitor urine output -continue Ceftriaxone; will d/c on levaquin -off IVF as oral intake has improved Sepsis Surgical History History of cholecystectomy History of esophageal hernia repair History of shoulder surgery History of urostomy Family History Other Hypertension Social History Alcohol intake: never Marital status: / Current occupational status: disabled History of recent travel: No Current gender identity: Male Physical Exam Const: COMMON NORMALS: patient oriented x3 and alert GENERAL APPEARANCE: cooperative HENMT: COMMON NORMALS: normocephalic HEAD & SCALP: normocephalic MOUTH: Normal oral and palatal mucosa present THROAT: posterior oropharynx normal and uvula midline Neck/C-Spine: COMMON NORMALS: supple GENERAL: Yes normal visual inspection Resp: COMMON NORMALS: normal respiratory effort, No retractions, No use of accessory muscles and clear to auscultation bilaterally AUSCULTATION: clear to auscultation bilaterally Cardio: COMMON NORMALS: regular rate, regular rhythm, S1 normal heart sound present, S2 normal heart sound present, No gallops present (Cardio), No clicks present (Cardio), No murmurs present (Cardio) and Peripheral pulses 2+ throughout RATE: regular rate RHYTHM: regular rhythm HEART SOUNDS: S1 normal heart sound present and S2 normal heart sound present PERIPHERAL PULSES: Peripheral pulses 2+ throughout GI: COMMON NORMALS: Normal to inspection, nondistended, normoactive bowel sounds present, Soft to palpation, non-tender and no masses PALPATION: Yes Soft to palpation : COMMON NORMALS: Yes no CVA tenderness BLADDER/KIDNEY EXAM: Yes no CVA tenderness Back/Pelvis: COMMON NORMALS: no CVA tenderness Extremity: GENERAL: Yes normal exam except as noted RIGHT UPPER EXTREMITY: Yes elbow joint (Elbow swelling) Right elbow: Yes inspection, Yes palpation (Tenderness to palpation on the lateral and medial aspect of elbow), Yes ROM (Limited due to pain.) and Yes neurovascular exam (Intact) Neuro: COMMON NORMALS: patient oriented x3 and moves all extremities SENSORIUM/ORIENTATION: Yes alert Skin: GENERAL SKIN EXAM: dry skin Course Vital Signs: Vital signs: Vital Signs Temperature 98.2 F 04/13/21 22:33 Pulse Rate 96 04/13/21 22:33 Respiratory Rate 18 04/13/21 22:33 Blood Pressure 121/76 04/13/21 22:33 Pulse Oximetry 97 04/13/21 22:33 MDM - Fall MDM Narrative: Medical decision making narrative: Patient is a 70-year-old male comes to the ED with right elbow injury. Patient says he fell from standing after tripping on a wire. He has pain in right elbow with associated swelling and limited range of motion. He is neurovascular intact. X-ray right elbow showed cortical bone defect of the posterior distal humerus with associated soft tissue swelling noted. Radiologist recommended a CT for better evaluation. I had Dr. Chaney review the x-rays and he agreed that there was a fracture present. Due to the high volume of patients here in the ED any extra CT imaging was not obtained here in the ED and Dr. Chaney agreed with that. Patient was put in a long-arm splint and sling. He was given a dose of hydrocodone while here in the ED for pain. I placed order with case management for patient to be referred to orthopedic for follow-up. Patient diagnosed with a right elbow fracture and discharged home with the prescription for hydrocodone for pain. Return to ED precautions given. Patient told case management will call him in the next couple days to set up an appoint with orthopedic for further evaluation and management of fracture. Patient understood and agreed with plan. Imaging Data^: Xray Ortho: Attestation: I personally reviewed and interpreted this imaging study as follows: Radiologist's impression: [address] [id number] ReportSigned Patient: Cole Troncoso #: [id number]: 1Acct#:[id number]/Sex: 70 / MADM Date: 04/13/21Loc: ERRoom/Bed:Attending Dr: Ordering Provider/Ordering MD: Virgil Gagnon Date of Service: 04/13/21 Procedure(s): XR elbow RT min 3V* [id number] Accession Number(s): [id number] Report Number: [id number] PROCEDURE INFORMATION: Exam: XR Right Elbow Exam date and time: 04/13/2021 6:17 PM Age: 70 years old Clinical indication: Pain and injury or trauma; Fall; Elbow; Right; Swelling (edema); Additional info: Fall injury, pain and swelling TECHNIQUE: Imaging protocol: XR Right elbow. Views: 3 or more views. COMPARISON: No relevant prior studies available. FINDINGS: Bones/joints: Osteophytes of coronoid process. Unremarkable elbow joint alignment. Incomplete extension of the joint on the AP and oblique views precludes adequate assessment of the proximal radius and ulna. On the lateral view there is possibly a small defect in cortical bone of the posterior distal humerus. Soft tissues: Periarticular soft tissue swelling. XR/XR elbow RT min 3V* [id number] IMPRESSION: Cannot exclude a nondisplaced fracture of the distal humerus. Given the limitations in the exam, recommend CT scan of the right elbow for further clarification. Dictated By:Robin Morris By:Robin Morris Date/Time:04/13/212DD/ 16 Discharge Plan Discharge Patient Disposition: Home Clinical Impression: Elbow fracture, right Qualifiers: Encounter type: initial encounter Fracture type: closed Qualified Code(s): S42.401A - Unspecified fracture of lower end of right humerus, initial encounter for closed fracture Condition: Stable Prescriptions: No Action ipratropium bromide 42 mcg (0.06 %) spray,non-aerosol 2 spray INTRANASAL PRN RF: 0 insulin detemir U-100 100 unit/mL (3 mL) insulin pen 40 unit SUBCUT BID Qty: 15 RF: 3 fluticasone propion-salmeterol [Advair Diskus] 500-50 mcg/dose blister with device 1 inh inhalation BID Qty: 60 RF: 12 tramadol 100 mg tablet 100 mg PO Q6H PRN (Reason: pain) Qty: 60 RF: 5 (DME) custom molded accommodative orthotic See Rx Instructions .ROUTE .MEDSUPPLY Qty: 1 RF: 0 (DME) custom molded orthotics See Rx Instructions .ROUTE .MEDSUPPLY Qty: 1 RF: 0 (DME) Cam boot to right See Rx Instructions .Route .MEDSUPPLY Qty: 1 RF: 0 (DME) cam boot See Rx Instructions .Route .MEDSUPPLY Qty: 1 RF: 0 Jentadueto 2.5-1,000 mg tablet 1 tab PO BID Qty: 180 RF: 3 ropinirole 4 mg tablet 8 mg PO BID Qty: 180 RF: 3 albuterol sulfate 90 mcg/actuation HFA aerosol inhaler 2 inh INHALATION Q4H PRN (Reason: shortness of breath or wheezing) Qty: 18 RF: 0 naproxen 500 mg tablet 500 mg PO BID PRN (Reason: Pain) RF: 0 ropinirole 4 mg tablet 4 mg PO DAILY Qty: 1 RF: 0 Discharge Orders: Discharge ED (Routine); Ordered 04/13/21 Ordered By: Virgil Gagnon Referrals: Mian Back MD [Primary Care Provider] - Discharge Diet: Regular Discharge Activity: Limit activity as instructed Patient Instructions: Elbow Fracture (ED), Opioid Safety Activity Restrictions/Additional Instructions: Follow-up with medical provider as directed. Case management should be contacting you in the next several days set up an appointment with Ortho for follow-up and further evaluation of elbow fracture. Take medications as prescribed. Keep splint on and dry and limit activity with right arm. Return to the ER or your medical provider if condition worsens. Please read and understand discharge instructions. Thank you for choosing [facility] [place] for your healthcare needs today. Please realize this is an emergency room and that we are providing you with a medical screening exam and this may not be complete and all inclusive of all the testing and or work up that you may need to determine your ailment or severity of your illness. It is very important that you follow up as instructed or that you return to the Emergency Department should you have concerns or if your condition changes or worsens in any way. Coding Level of Care Code ED Escrow Officer for [facility] Fwd Exam Comprehensive Documented by User: Koby Chaney DO 04/14/21 02:12 HPI - Fall General: Chief Complaint: Fall Stated Complaint: r arm injury Time Seen by Provider: 04/13/21 19:37 PFSH ED PFSH: Medical History Acute renal failure CKD stage 2 due to type 1 diabetes mellitus Diabetes mellitus -insulin dependent Enterocolitis History of bladder cancer Hx of intestinal obstruction Obesity (BMI 30.0-34.9) PETER (obstructive sleep apnea) Parastomal hernia Poorly controlled diabetes mellitus -hx of IDDM type II, uncontrolled, complicated by peripheral neuropathy and nephropathy -A1c-11.5 -Accuchecks, ISS, hypoglycemia precautions. BG well controlled with scheduled insulin -consistent carb diet as tolerated Pyelonephritis -UA indicative of infection -evidence of mild focal R pyelonephritis on CT -urine cx: Klebsiella oxytoca, sensitivity noted -blood cx: 2/2 bottles positive for klebsiella oxytoca; repeat set prelim negative -associated sepsis given tachycardia, leukocytosis, fever, pro-calcitonin elevated (1.35). Sepsis now resolved -continue to monitor vital signs; stable -minimal leukocytosis -has urostomy secondary to hx of bladder cancer; continue to monitor urine output -continue Ceftriaxone; will d/c on levaquin -off IVF as oral intake has improved Sepsis Surgical History History of cholecystectomy History of esophageal hernia repair History of shoulder surgery History of urostomy Family History Other Hypertension Social History Alcohol intake: never Marital status: / Current occupational status: disabled History of recent travel: No Current gender identity: Male Course Vital Signs: Vital signs: Vital Signs Temperature 98.2 F 04/13/21 22:33 Pulse Rate 96 04/13/21 22:33 Respiratory Rate 18 04/13/21 22:33 Blood Pressure 121/76 04/13/21 22:33 Pulse Oximetry 97 04/13/21 22:33 MDM - Fall MDM Narrative: Medical decision making narrative: This patient was originally seen by JASMINA HenriquezC. I agree with his history, evaluation, and treatment. Discharge Plan Discharge Patient Disposition: Home Clinical Impression: Elbow fracture, right Qualifiers: Encounter type: initial encounter Fracture type: closed Qualified Code(s): S42.401A - Unspecified fracture of lower end of right humerus, initial encounter for closed fracture Condition: Stable Prescriptions: No Action ipratropium bromide 42 mcg (0.06 %) spray,non-aerosol 2 spray INTRANASAL PRN RF: 0 insulin detemir U-100 100 unit/mL (3 mL) insulin pen 40 unit SUBCUT BID Qty: 15 RF: 3 fluticasone propion-salmeterol [Advair Diskus] 500-50 mcg/dose blister with device 1 inh inhalation BID Qty: 60 RF: 12 tramadol 100 mg tablet 100 mg PO Q6H PRN (Reason: pain) Qty: 60 RF: 5 (DME) custom molded accommodative orthotic See Rx Instructions .ROUTE .MEDSUPPLY Qty: 1 RF: 0 (DME) custom molded orthotics See Rx Instructions .ROUTE .MEDSUPPLY Qty: 1 RF: 0 (DME) Cam boot to right See Rx Instructions .Route .MEDSUPPLY Qty: 1 RF: 0 (DME) cam boot See Rx Instructions .Route .MEDSUPPLY Qty: 1 RF: 0 Jentadueto 2.5-1,000 mg tablet 1 tab PO BID Qty: 180 RF: 3 ropinirole 4 mg tablet 8 mg PO BID Qty: 180 RF: 3 albuterol sulfate 90 mcg/actuation HFA aerosol inhaler 2 inh INHALATION Q4H PRN (Reason: shortness of breath or wheezing) Qty: 18 RF: 0 naproxen 500 mg tablet 500 mg PO BID PRN (Reason: Pain) RF: 0 ropinirole 4 mg tablet 4 mg PO DAILY Qty: 1 RF: 0 Discharge Orders: Discharge ED (Routine); Ordered 04/13/21 Ordered By: Virgil Gagnon Referrals: Mian Back MD [Primary Care Provider] - Discharge Diet: Regular Discharge Activity: Limit activity as instructed Patient Instructions: Elbow Fracture (ED), Opioid Safety Activity Restrictions/Additional Instructions: Follow-up with medical provider as directed. Case management should be contacting you in the next several days set up an appointment with Ortho for follow-up and further evaluation of elbow fracture. Take medications as prescribed. Keep splint on and dry and limit activity with right arm. Return to the ER or your medical provider if condition worsens. Please read and understand discharge instructions. Thank you for choosing [facility] [place] for your healthcare needs today. Please realize this is an emergency room and that we are providing you with a medical screening exam and this may not be complete and all inclusive of all the testing and or work up that you may need to determine your ailment or severity of your illness. It is very important that you follow up as instructed or that you return to the Emergency Department should you have concerns or if your condition changes or worsens in any way. Coding Level of Care Code ED Escrow Officer for [facility] Ansari Exam Comprehensive
[2021-04-13] MEDS: HYDROcodone-acetaminophen 7.5-325 mg Tablet 1 TAB PO ×2 (21:55→22:29)
[2021-04-13 22:30] VITALS: BP 121/76; PULSE 96; RESP 18; TEMP 36.8; O2SAT 97
[2021-04-13 22:33] VITALS: BP 121/76; PULSE 96; RESP 18; TEMP 36.8; O2SAT 97
--- NOTE | 2021-04-14 09:13 | DCPLANNER ---
Addendum entered by Samira Real 04/15/21 14:55: Patient had follow up appointment scheduled for 04.14.[address] Robles at ortho - patient did attend appointment. Original Note: manager collection had message to schedule a follow up appointment for patient with ortho. manager collection emailed patients information to Yoly at ortho. Patients information will be printed and reviewed. Clinic will call patient with appointment information.
== END 2021-04-13 22:35 | disposition home or self-care (01) ==
PROVIDERS: Emergency Provider Physician Assistant; PCP Internal Medicine
DX: S42.401A Unspecified fracture of lower end of right humerus, initial encounter for closed fracture (principal); Z79.4 Long term (current) use of insulin; E10.22 Type 1 diabetes mellitus with diabetic chronic kidney disease; N18.2 Chronic kidney disease, stage 2 (mild); Z85.51 Personal history of malignant neoplasm of bladder; W18.09XA Striking against other object with subsequent fall, initial encounter
CPT/HCPCS: 29240; 73080; 99283

== ENCOUNTER → 2021-04-14 14:32 | Outpatient (BNVA) | payer MEDICARE, MEDICAID, SELFPAY | PROVIDERS: PCP Internal Medicine; Referring Provider Physician Assistant; Visit Provider Specialist | DX: S42.401A Unspecified fracture of lower end of right humerus, initial encounter for closed fracture (principal); X58.XXXA Exposure to other specified factors, initial encounter; Z46.89 Encounter for fitting and adjustment of other specified devices; S42.401D Unspecified fracture of lower end of right humerus, subsequent encounter for fracture with routine healing; X58.XXXD Exposure to other specified factors, subsequent encounter | CPT/HCPCS: 73080; 97760; L3761 ==

== ENCOUNTER 2021-04-14 15:08 | Outpatient (CLI) | payer MEDICARE, MEDICAID, SELFPAY | END 2021-04-14 15:09 | disposition home or self-care (01) | LOC: SPT 15:09 | PROVIDERS: PCP Internal Medicine; Visit Provider Specialist | DX: Z46.89 Encounter for fitting and adjustment of other specified devices (principal); S42.401D Unspecified fracture of lower end of right humerus, subsequent encounter for fracture with routine healing; X58.XXXD Exposure to other specified factors, subsequent encounter | CPT/HCPCS: 97760; L3761 ==

== ENCOUNTER → 2021-04-23 08:16 | Outpatient (BNVA) | payer MEDICARE, MEDICAID, SELFPAY | PROVIDERS: PCP Internal Medicine; Visit Provider Podiatrist Foot & Ankle Surgery | DX: S52.121A Displaced fracture of head of right radius, initial encounter for closed fracture (principal); X58.XXXA Exposure to other specified factors, initial encounter | CPT/HCPCS: 73630 ==

== ENCOUNTER 2021-05-16 08:08 | Outpatient (CLI) | payer MEDICARE, MEDICAID, SELFPAY ==
--- NOTE | 2021-05-16 08:30 | CT_ITS ---
WS: [id number] NONCONTRAST CT RIGHT ELBOW TECHNIQUE: Noncontrast CT RIGHT elbow with coronal and sagittal reformatted images. CLINICAL INFORMATION: S42.401A - Unspecified fracture of lower end of right hum... COMPARISON: April 14, 2021 DLP: 508.[address] scans at [facility] use at least one of these dose optimization techniques: automated e xposure control; mA and/or kV adjustment per patient size (includes targeted exams where dose is matc hed to clinical indication); or iterative reconstruction. FINDINGS: Comminuted fracture involving the lateral epicondyle of the humerus with intra-articular extension to the intercondylar ridge of the humerus. Fracture extends into the adjacent articular surface of the trochlea. Fracture component involving the anterior articular surface of the trochlea. Evidence of so me healing with callus formation. Relatively normal anatomic alignment. Additional nondisplaced fract ure of the coronoid process. Tiny joint effusion. CT/CT elbow RT wo con* [id number] IMPRESSION: 1. Comminuted fracture involving the lateral epicondyle with intra-articular e xtension into the intercondylar ridge 2. Additional comminuted fracture component extending into the adjacent parasa gittal trochlea with intra-articular extension. 3. Some evidence of callus formation involving the above-described fractures. Normal anatomic alignment. 4. Additional nondisplaced fracture of the coronoid process. 5. Small joint effusion.
== END 2021-05-16 08:09 | disposition home or self-care (01) ==
LOC: RAD 08:10
PROVIDERS: PCP Internal Medicine; Visit Provider Specialist
DX: S42.401A Unspecified fracture of lower end of right humerus, initial encounter for closed fracture (principal); M25.421 Effusion, right elbow; S52.044A Nondisplaced fracture of coronoid process of right ulna, initial encounter for closed fracture; X58.XXXA Exposure to other specified factors, initial encounter
CPT/HCPCS: 73200

== ENCOUNTER → 2021-06-04 09:03 | Outpatient (BNVA) | payer OTHER, MEDICAID, SELFPAY | PROVIDERS: PCP Internal Medicine; Visit Provider Podiatrist Foot & Ankle Surgery | DX: S99.921A Unspecified injury of right foot, initial encounter (principal); X58.XXXA Exposure to other specified factors, initial encounter | CPT/HCPCS: 73630 ==

== ENCOUNTER → 2021-06-30 14:45 | Outpatient (BNVA) | payer MEDICARE, MEDICAID, SELFPAY | PROVIDERS: PCP Internal Medicine; Visit Provider Specialist | DX: S42.451D Displaced fracture of lateral condyle of right humerus, subsequent encounter for fracture with routine healing (principal); X58.XXXD Exposure to other specified factors, subsequent encounter | CPT/HCPCS: 73080 ==

== ENCOUNTER → 2021-07-08 13:50 | Outpatient (BNVA) | payer OTHER, MEDICAID, SELFPAY | PROVIDERS: PCP Internal Medicine; Visit Provider Podiatrist Foot & Ankle Surgery | DX: S92.502D Displaced unspecified fracture of left lesser toe(s), subsequent encounter for fracture with routine healing (principal); X50.0XXD Overexertion from strenuous movement or load, subsequent encounter; E11.42 Type 2 diabetes mellitus with diabetic polyneuropathy | CPT/HCPCS: 73630; 99214 ==

== ENCOUNTER → 2021-08-06 08:26 | Outpatient (BNVA) | payer OTHER, MEDICAID, SELFPAY | PROVIDERS: PCP Internal Medicine; Visit Provider Specialist | DX: S42.451A Displaced fracture of lateral condyle of right humerus, initial encounter for closed fracture (principal); X58.XXXA Exposure to other specified factors, initial encounter | CPT/HCPCS: 73080 ==

== ENCOUNTER → 2021-08-26 13:10 | Outpatient (BNVA) | payer OTHER, MEDICAID, SELFPAY | PROVIDERS: PCP Internal Medicine; Visit Provider Podiatrist Foot & Ankle Surgery | DX: S92.502A Displaced unspecified fracture of left lesser toe(s), initial encounter for closed fracture (principal); X58.XXXA Exposure to other specified factors, initial encounter | CPT/HCPCS: 73630 ==

== ENCOUNTER → 2021-10-28 12:52 | Outpatient (BNVA) | payer MEDICARE, MEDICAID, SELFPAY | PROVIDERS: PCP Internal Medicine; Visit Provider Podiatrist Foot & Ankle Surgery | DX: S92.502A Displaced unspecified fracture of left lesser toe(s), initial encounter for closed fracture (principal); X58.XXXA Exposure to other specified factors, initial encounter; E11.42 Type 2 diabetes mellitus with diabetic polyneuropathy; S92.502D Displaced unspecified fracture of left lesser toe(s), subsequent encounter for fracture with routine healing; E11.610 Type 2 diabetes mellitus with diabetic neuropathic arthropathy; Z79.4 Long term (current) use of insulin; X58.XXXD Exposure to other specified factors, subsequent encounter | CPT/HCPCS: 73630; 99214 ==

== ENCOUNTER 2021-12-01 08:47 | Inpatient (IN) | payer MEDICARE, MEDICAID, SELFPAY ==
[2021-12-01] VITALS (52 sets, daily range): BP systolic 78–148; BP diastolic 48–100; PULSE 0–129; RESP 10–36; TEMP 36.7–38.4; O2SAT 90–98; BMI 27.1
--- NOTE | 2021-12-01 | XRR_ITS ---
PROCEDURE INFORMATION: Exam: XR Chest Exam date and time: 12/01/2021 6:36 PM Age: 71 years old Clinical indication: Device placement; Other: Central line TECHNIQUE: Imaging protocol: Radiologic exam of the chest. Views: 1 view. COMPARISON: No relevant prior studies available. FINDINGS: Tubes, catheters and devices: Internal jugular central venous catheter is in place on the right and catheter tip is positioned in the upper right cardiac atrium. Tube coursing via esophagus extends into the abdomen and is not fully imaged. Lungs: Unremarkable. No consolidation. Pleural spaces: Unremarkable. No pleural effusion. No pneumothorax. Heart/Mediastinum: Unremarkable. No cardiomegaly. Bones/joints: No acute findings. XR/XR chest 1V [id number] IMPRESSION: Right internal jugular central venous catheter tip in upper right cardiac atrium.
--- NOTE | 2021-12-01 09:07 | CT_ITS ---
WS: [id number] CT ABDOMEN AND PELVIS NONCONTRAST HISTORY: Abdominal pain TECHNIQUE: Imaging performed through the abdomen and pelvis. Coronal and sagittal reformats are submi tted. All CT scans at [facility] use at least one of these dose optimization techniques: auto mated exposure control; mA and/or kV adjustment per patient size (includes targeted exams where dose is matched to clinical indication); or iterative reconstruction. DLP: 900.23 mGy.cm COMPARISON: 04/27/2020 Lower thorax: Lung bases are clear. Visualized heart is normal. No hiatal hernia. Liver: Normal size liver. No mass or bile duct dilatation. Gallbladder: Prior cholecystectomy. Pancreas: Normal size and attenuation. Normal pancreatic duct. No pancreatitis or mass. Spleen: Normal. Adrenal glands: Normal. No mass. Right kidney: Mild perinephric stranding. Nonobstructing renal calcifications. Left kidney: Mild perinephric stranding. Mild atrophy. Nonobstructing renal calculi. Aorta: Moderate to severe atherosclerosis abdominal aorta. No aneurysm. Atherosclerosis continues int o the common iliac arteries. No free fluid, intraperitoneal air or significant lymphadenopathy. GI tract: Marked fluid distention of the stomach. Marked fluid distention of the small bowel loops. P redominantly fluid but also scattered air within the small bowel. Patient has an ileal conduit. Begin chaya within the distal small bowel there is a dilated loop which contains a partial fecalith gestatio n. There is also a dilated loop at the ostomy site with marked fecal and fixation within this loop. C onsistent with a long standing progressive obstruction. Nondilated small bowel loops within the ostom y site and parastomal hernia. Suspect there is a stenosis or adhesion at the orifice of the stomach. Additional increasing calcific deposit measuring 2.9 x 1.8 cm at the stomal orifice. Nondilated loop of small bowel on both sides of this calcification which may be not be causing obstruction. Abdominal wall: RIGHT lower quadrant ostomy with peristomal hernia. Pelvis: Prior cystectomy with ileal conduit. Osseous structures: Unremarkable. CT/CT abdomen pelvis wo con [id number] IMPRESSION: 1. Patient is status post cystectomy with ileal conduit. 2. High-grade distal small bowel obstruction which is chronic and progressive based upon the marked fecalization in the distal small bowel and also extending into a loop of small bowel in the RIGHT lower quadrant ostomy site. This is a high-grade obstruction may be due to adhesions or twisting within the stoma. Th ere are additional loops of nondilated small bowel within the stomach, parastom al hernia. 3. Increase in size of calcification near the orifice of the stoma may eventua lly lead to an obstruction but there is no obstruction proximal or distal to th is calcification. 4. Bilateral renal calculi with no hydronephrosis. 5. Prior cholecystectomy.
--- NOTE | 2021-12-01 09:07 | XR_ITS ---
WS: [id number] XR chest 1V portable [id number] REASON FOR EXAM: dyspnea/cough FINDINGS: The chest is unchanged compared to 06/27/2020. Moderate ectasia and tortuosity the thoracic aorta. Normal heart size. Calcified granulomatous disease bilaterally. No active pulmonary parenchymal or pleural disease. XR/XR chest 1V portable [id number] IMPRESSION: Stable chest without acute abnormality.
--- NOTE | 2021-12-01 09:13 | W.ED.ABDPA2 ---
HPI - Abdominal Pain General: Chief Complaint: Abdominal Pain Stated Complaint: Abd pain Time Seen by Provider: 12/01/21 09:04 Source: patient Mode of arrival: ambulatory History of Present Illness: 71-year-old male who reports emergency room with complaints of abdominal pain and distention. He said nausea and vomiting no bowel movement for over 24 hours. He is try to continue to have p.o. intake but he vomits at each effort. He has a urostomy and the right lower quadrant. Had multiple abdominal procedures in the past. He denies any fever sweats or chills. Continue to have urine output of his urostomy but he has noted it is dark in quite a bit. He has abdominal pain and distention as well. He denies any medic easy melena hematemesis or coffee-ground emesis. His blood sugars have remained stable he is on insulin for his diabetes he is not on any anticoagulants. MD elicited complaint: abdominal pain Pertinent past history: other (Multiple abdominal surgeries previous bowel obstruction and urostomy.) Onset (ago): day(s) (1) Location: None Severity: moderate Quality: cramping Radiation: none Migration to: no migration Exacerbating factors: nothing Relieving factors: nothing Associated Symptoms: Denies anorexia, belching, bloating, change in bowel habits, change in stool character, chills, coffee ground emesis, constipation, GI cramping, diarrhea, dyspepsia, excessive flatus, fever(s), heartburn, hematochezia, hematuria, hematemesis, fecal incontinence, loose stools, melena, nausea, poor appetite, syncope and vomiting Review of Systems Const: Denies: fever(s) or chills ENMT: Denies: throat pain, ear or mastoid pain, nasal discharge or nasal congestion Card: Denies: chest pain or syncope Resp: Denies: dyspnea, productive cough or non-productive cough GI: Reports: abdominal pain; Denies: nausea, vomiting, hematemesis, coffee ground emesis, heartburn, diarrhea, constipation, bloating, GI cramping, belching, excessive flatus, fecal incontinence, change in bowel habits, change in stool character, hematochezia or melena : Denies: flank pain or hematuria Skin/Breast: Denies: rash or pruritus PFSH ED PFSH: Medical History (Updated 12/01/21 @ 13:27 by El Keyes MD) Acute renal failure CKD stage 2 due to type 1 diabetes mellitus Diabetes mellitus -insulin dependent Enterocolitis History of bladder cancer Hx of intestinal obstruction Hypotension Obesity (BMI 30.0-34.9) PETER (obstructive sleep apnea) Parastomal hernia Poorly controlled diabetes mellitus -hx of IDDM type II, uncontrolled, complicated by peripheral neuropathy and nephropathy -A1c-11.5 -Accuchecks, ISS, hypoglycemia precautions. BG well controlled with scheduled insulin -consistent carb diet as tolerated Pyelonephritis -UA indicative of infection -evidence of mild focal R pyelonephritis on CT -urine cx: Klebsiella oxytoca, sensitivity noted -blood cx: 2/2 bottles positive for klebsiella oxytoca; repeat set prelim negative -associated sepsis given tachycardia, leukocytosis, fever, pro-calcitonin elevated (1.35). Sepsis now resolved -continue to monitor vital signs; stable -minimal leukocytosis -has urostomy secondary to hx of bladder cancer; continue to monitor urine output -continue Ceftriaxone; will d/c on levaquin -off IVF as oral intake has improved Sepsis Surgical History History of cholecystectomy History of esophageal hernia repair History of shoulder surgery History of urostomy Family History Other Hypertension Social History Smoking and tobacco status: never smoked Alcohol intake: former Marital status: / Current occupational status: disabled History of recent travel: No Current gender identity: Male Physical Exam Const: COMMON NORMALS: no acute distress GENERAL APPEARANCE: cooperative and comfortable ORIENTATION/CONSCIOUSNESS: Yes awake, Yes oriented to person, Yes oriented to place and Yes oriented to time HENMT: COMMON NORMALS: normocephalic and atraumatic HEAD & SCALP: normocephalic and atraumatic Resp: COMMON NORMALS: normal respiratory effort, No retractions, No use of accessory muscles and clear to auscultation bilaterally AUSCULTATION: clear to auscultation bilaterally Cardio: COMMON NORMALS: regular rate, regular rhythm and No murmurs present (Cardio) RATE: regular rate RHYTHM: regular rhythm GI: INSPECTION: Yes abdominal distension AUSCULTATION: Yes Absent bowel sounds PALPATION: Yes Tenderness to palpation present (GI) Extremity: COMMON NORMALS: normal to inspection, capillary refill normal, no clubbing, cyanosis or edema, no calf tenderness and no pedal edema Neuro: SENSORIUM/ORIENTATION: Yes oriented to person, Yes oriented to place and Yes oriented to time Skin: COMMON NORMALS: no rashes or lesions noted GENERAL SKIN EXAM: no rashes or lesions noted Course Vital Signs: Vital signs: Vital Signs Temperature 98.1 F 12/01/21 08:52 Pulse Rate 115 H 12/01/21 09:01 Respiratory Rate 16 12/01/21 09:01 Blood Pressure 124/93 12/01/21 09:01 Pulse Oximetry 97 12/01/21 09:01 Oxygen Delivery Me thod 12/01/21 09:01 MDM - Abdominal Pain Medical Decision Making Bowel obstruction. Lactate elevated. IV fluids given NG placed discussed with surgery and with hospitalist orders written. Patient additionally has an acute kidney injury. Medical Records I reviewed the patient's medical records. Lab Data I reviewed the patient's lab results. : 12/01/21 09:20 12/01/21 09:20 Labs/Radiology: Radiology Impressions Abdomen/Pelvis CT 12/01/21 09:07 IMPRESSION: 1. Patient is status post cystectomy with ileal conduit. 2. High-grade distal small bowel obstruction which is chronic and progressive based upon the marked fecalization in the distal small bowel and also extending into a loop of small bowel in the RIGHT lower quadrant ostomy site. This is a high-grade obstruction may be due to adhesions or twisting within the stoma. There are additional loops of nondilated small bowel within the stomach, parastomal hernia. 3. Increase in size of calcification near the orifice of the stoma may eventually lead to an obstruction but there is no obstruction proximal or distal to this calcification. 4. Bilateral renal calculi with no hydronephrosis. 5. Prior cholecystectomy. Chest X-Ray 12/01/21 09:07 IMPRESSION: Stable chest without acute abnormality. KUB X-Ray 12/01/21 12:18 IMPRESSION: Nasogastric tube placement as above. The tube could be advanced another 2-3 cm for more optimal position. Laboratory Results WBC 9.1 10^3/uL (4.0-10.0) 12/01/21 09:20 RBC 5.80 10^6/uL (4.1-5.3) H 12/01/21 09:20 Hgb 17.5 g/dL (11.7-16.6) H 12/01/21 09:20 Hct 51.7 % (42.0-52.0) 12/01/21 09:20 MCV 89.1 fl (80-94) 12/01/21 09:20 MCH 30.2 pg (28.0-34.0) 12/01/21 09:20 MCHC 33.8 g/dL (30.0-36.0) 12/01/21 09:20 RDW 13.2 % (12.1-15.1) 12/01/21 09:20 Plt Count 203 10^3/cmm (130-400) 12/01/21 09:20 MPV 10.6 fL (7.4-10.4) H 12/01/21 09:20 Neut % (Auto) 77.3 % 12/01/21 09:20 Lymph % (Auto) 9.6 % 12/01/21 09:20 Murray % (Auto) 12.2 % 12/01/21 09:20 Eos % (Auto) 0.2 % 12/01/21 09:20 Baso % (Auto) 0.5 % 12/01/21 09:20 Neut # (Auto) 7.03 10^3/uL (1.8-7.7) 12/01/21 09:20 Lymph # (Auto) 0.9 10^3/uL (0.8-4.8) 12/01/21 09:20 Murray # (Auto) 1.1 10^3/uL (0.2-0.9) H 12/01/21 09:20 Eos # (Auto) 0.0 10^3/uL (0.0-0.8) 12/01/21 09:20 Baso # (Auto) 0.1 10^3/uL (0.0-0.1) 12/01/21 09:20 Nucleated RBC % (auto) 0 % 12/01/21 09:20 Nucleated RBCs # 0.0 /100WBC 12/01/21 09:20 Sodium 136 mmol/L (136-145) 12/01/21 09:20 Potassium 4.4 mmol/L (3.5-5.1) 12/01/21 09:20 Chloride 87 mmol/L (98-107) L 12/01/21 09:20 Carbon Dioxide 32 mmol/L (22-29) H 12/01/21 09:20 Anion Gap 21.4 (5-19) H 12/01/21 09:20 BUN 30 mg/dL (8-23) H 12/01/21 09:20 Creatinine 2.1 mg/dL (0.7-1.2) H 12/01/21 09:20 GFR Calculation Not Reportable 12/01/21 09:20 Glucose 342 mg/dL (65-115) H 12/01/21 09:20 POC Glucose 323 mg/dL (70-110) H 12/01/21 12:27 Calculated Osmolality 302 mOsm/kg (285-295) H 12/01/21 09:20 Lactic Acid 5.7 mmol/L (0.5-2.2) H* 12/01/21 09:20 Lactic Acid (Sepsis) 7.3 mmol/L (0.5-2.2) H* 12/01/21 12:27 Calcium 10.1 mg/dL (8.5-10.5) 12/01/21 09:20 Total Bilirubin 1.1 mg/dL (0.15-1.2) 12/01/21 09:20 AST 17 U/L (0-40) 12/01/21 09:20 ALT 20 U/L (0-41) 12/01/21 09:20 Alkaline Phosphatase 114 U/L (40-130) 12/01/21 09:20 Creatine Kinase 130 U/L (39-308) 12/01/21 09:20 Total Protein 8.7 g/dL (6.6-8.7) 12/01/21 09:20 Albumin 4.6 g/dL (3.5-5.2) 12/01/21 09:20 Globulin 4.1 g/dL (1.3-4.6) 12/01/21 09:20 Discharge Plan Discharge Patient Disposition: Admitted As Inpatient Clinical Impression: Small bowel obstruction, CKD stage 2 due to type 1 diabetes mellitus, DM type 2 (diabetes mellitus, type 2), Parastomal hernia, Lactic acid acidosis, History of bladder cancer Condition: Stable Coding Level of Care Code ED Compounding Scaler for Chg Fwd Exam Detailed
[2021-12-01 09:26] LABS: Basophils # 0.1 10^3/uL (0.0-0.1); Basophils % 0.5 %; Eosinophils % 0.2 %; Hematocrit 51.7 % (42.0-52.0); Hemoglobin 17.5 g/dL (11.7-16.6); Lymphocytes # 0.9 10^3/uL (0.8-4.8); Lymphocytes % 9.6 %; Mean Corpuscular HGB Conc 33.8 g/dL (30.0-36.0); Mean Corpuscular Hemoglobin 30.2 pg (28.0-34.0); Mean Corpuscular Volume 89.1 fl (80-94); Mean Platelet Volume 10.6 fL (7.4-10.4); Monocytes # 1.1 10^3/uL (0.2-0.9); Monocytes % 12.2 %; Neutrophils # 7.03 10^3/uL (1.8-7.7); Neutrophils % 77.3 %; Nucleated Red Blood Cells % 0 %; Platelet Count 203 10^3/cmm (130-400); Red Cell Distribution Width 13.2 % (12.1-15.1); White Blood Count 9.1 10^3/uL (4.0-10.0)
[2021-12-01 09:43] LABS: Alanine Aminotransferase 20 U/L (0-41); Albumin Level 4.6 g/dL (3.5-5.2); Alkaline Phosphatase 114 U/L (40-130); Anion Gap 21.4 (5-19); Aspartate Amino Transferase 17 U/L (0-40); Blood Urea Nitrogen 30 mg/dL (8-23); Calcium 10.1 mg/dL (8.5-10.5); Carbon Dioxide 32 mmol/L (22-29); Chloride 87 mmol/L (98-107); Creatine Phosphokinase 130 U/L (39-308); Globulin 4.1 g/dL (1.3-4.6); Glucose 342 mg/dL (65-115); Osmolality Calculated 302 mOsm/kg (285-295); Potassium 4.4 mmol/L (3.5-5.1); Sodium 136 mmol/L (136-145); Total Bilirubin 1.1 mg/dL (0.15-1.2); Total Protein 8.7 g/dL (6.6-8.7)
[2021-12-01 10:03] LABS: Lactic Sepsis W/Reflex 5.7 mmol/L (0.5-2.2)
[2021-12-01] MEDS: sodium chloride 0.9% 2,721.54 ML 2721.54 ML IV (10:03)
[2021-12-01] MEDS: metroNIDAZOLE IV 500 MG/100 ML PREMIX 100 MG IV (10:19)
[2021-12-01] MEDS: ciprofloxacin 400 MG/200 ML PREMIX 200 MG IV (10:19)
[2021-12-01 11:11] LABS: Reflex Lactate Order REFLEX LACTIC ORDERD
--- NOTE | 2021-12-01 11:22 | PM.CONSULT ---
Providers/Reason For Consult Consulting Physician/Specialty*: Duane Morrison/general surgery Reason for Consult*: Abdominal pain, bowel obstruction Requesting Physician: Dr. Arenas Primary Care Provider: Mian Back MD History of Present Illness History of Present Illness Cole Troncoso is a 71 year old male, he is accompanied by his brother Anthony, presented to the emergency room with acute abdominal pain since yesterday morning, nausea and vomiting. It started as a separate discomfort, heartburn which progressed to the persistent nausea and vomiting associated with progressively worsening abdominal pain. She vomited multiple times, mostly bilious fluid. Denies any blood in the vomiting. Abdominal pain is fluctuating, up to 10/10, then subsides, located in the midepigastric area, traversed his ostomy site. Last bowel movement yesterday. It was normal in consistency and volume. Last time he passed gas was yesterday as well. His condition did not improve and he decided to seek medical attention. In the emergency room he was given IV fluids and antibiotics as well as pain medications. CT scan without contrast was performed and was suspicious for high-grade bowel obstruction. Surgery was consulted to assist with management. History of bladder cancer, cystectomy with ileal conduit was performed. Since then patient underwent several parastomal hernia repairs, he also was admitted with episodes of bowel obstruction several times. Overall feels symptoms today are similar to prior presentation. She went to see a neurosurgeon in [place], it was about a year ago, at this time repair was not recommended, he did not have any episodes of bowel obstruction since he saw her hernia surgeon in [place]. He was a heavy smoker, he quit smoking about 13 years ago. He feels chronic kidney disease, diabetes, COPD. He does have shortness of breath with mild physical exertion. He has no other complaints today. He specifically denies any chest pain. Hisl ability to walk is limited by a chronic fracture in the right foot. She has seen a podiatry specialist for this. History of hypotension, he is taking midodrine for this. History of urinary tract infection Review of Systems Narrative: 10 point review of systems is negative except as per HPI Medications/Allergies Home Medications Medication Instructions Recorded Confirmed Last Taken Type albuterol sulfate 90 mcg/actuation 2 inh inhalation Q4H PRN shortness 07/17/20 12/01/21 Unknown Rx aerosol inhaler of breath or wheezing #18 grams custom molded accommodative #1 ea 11/11/20 12/01/21 Unknown Rx orthotic custom molded orthotics #1 ea 11/11/20 12/01/21 Unknown Rx Cam boot to right #1 ea 11/21/20 12/01/21 Unknown Rx linagliptin 2.5 mg-metformin 1,000 1 tab PO BID #180 tabs 12/04/20 12/01/21 12/01/21 08:00 Rx mg tablet (Jentadueto) fluticasone 500 mcg-salmeterol 50 1 inh inhalation BID #60 ea 02/06/21 12/01/21 03/29/21 Rx mcg/dose blistr powdr for inhalation (Advair Diskus) Diabetic Shoes and Custom Molded #1 ea 05/02/21 12/01/21 Unknown Rx Accommodative Orthotics galena boot right foot #1 ea 06/24/21 12/01/21 Unknown Rx ropinirole 4 mg tablet 8 mg PO BID #180 tabs 08/06/21 12/01/21 12/01/21 08:00 Rx tramadol 100 mg tablet 100 mg PO Q6H PRN pain #60 tabs 08/06/21 12/01/21 11/30/21 Rx New tread for ONONDAGA Boot #1 ea 10/29/21 12/01/21 Unknown Rx insulin detemir U-100 100 unit/mL 40 unit SUBCUT BID 12/01/21 12/01/21 12/01/21 History (3 mL) subcutaneous pen (Levemir FlexTouch U-100 Insulin) midodrine 5 mg tablet 5 mg PO BID PRN Blood Pressure 12/01/21 12/01/21 Unknown History phenylephrine HCl 1 % nasal spray 1 spray intranasal BID 12/01/21 12/01/21 Unknown History (4 Way) Allergies Allergy/AdvReac Type Severity Reaction Status Date / Time Penicillins Allergy Unknown Verified 10/28/21 13:05 PFSH Acute PFSH: Medical History (Updated 12/01/21 @ 11:47 by Duane Morrison MD) Acute renal failure CKD stage 2 due to type 1 diabetes mellitus Diabetes mellitus -insulin dependent Enterocolitis History of bladder cancer Hx of intestinal obstruction Obesity (BMI 30.0-34.9) PETER (obstructive sleep apnea) Parastomal hernia Poorly controlled diabetes mellitus -hx of IDDM type II, uncontrolled, complicated by peripheral neuropathy and nephropathy -A1c-11.5 -Accuchecks, ISS, hypoglycemia precautions. BG well controlled with scheduled insulin -consistent carb diet as tolerated Pyelonephritis -UA indicative of infection -evidence of mild focal R pyelonephritis on CT -urine cx: Klebsiella oxytoca, sensitivity noted -blood cx: 2/2 bottles positive for klebsiella oxytoca; repeat set prelim negative -associated sepsis given tachycardia, leukocytosis, fever, pro-calcitonin elevated (1.35). Sepsis now resolved -continue to monitor vital signs; stable -minimal leukocytosis -has urostomy secondary to hx of bladder cancer; continue to monitor urine output -continue Ceftriaxone; will d/c on levaquin -off IVF as oral intake has improved Sepsis Surgical History History of cholecystectomy History of esophageal hernia repair History of shoulder surgery History of urostomy Family History Other Hypertension Social History Smoking and tobacco status: never smoked Alcohol intake: former Marital status: / Current occupational status: disabled History of recent travel: No Current gender identity: Male Vitals/I&O/Wt Last Vital Signs Temp 98.1 F 12/01/21 08:52 Pulse 115 H 12/01/21 09:01 Resp 16 12/01/21 09:01 BP 124/93 12/01/21 09:01 Pulse Ox 97 12/01/21 09:01 O2 Del Method 12/01/21 09:01 Weight last 48 hrs Weight 200 lb Physical Exam Narrative: General: Mild distress secondary to pain and nausea, tachycardic, normotensive Psych: [AAOx3] Eyes: [sclerae are white] Head/ENT: [normocephalic, symmetric] CV: [regular] pulse, [tachychardic], no JVD Lungs: [symmetrical chest rise] Abdomen: Moderately distended, tender to palpation around parastomal hernia in the right lateral/lower quadrant. Hernia is not reducible. No peritoneal signs. Tympanic to percussion. Bowel sounds are present. : Urine is present in the ileal conduit Ext: [no obvious traumatic deformities] Skin: warm Data : 12/01/21 09:20 12/01/21 09:20 CT Abd/Pel: My impression: Parastomal hernia is present. Loops of distal small bowel in the hernia. No obvious evidence of strangulation, although evaluation is limited by a noncontrast CT scan. No pneumatosis. Minimal amount of fluid in the hernia sac. Distal small bowel and remaining colon are decompressed. Consistent with a high grade SBO Radiologist's impression: High grade SBO A&P Assessment and plan (1) Bowel obstruction: Status: Acute (2) Parastomal hernia: Status: Acute (3) Lactic acid acidosis: Status: Acute (4) Dehydration: Status: Acute (5) DM type 2 (diabetes mellitus, type 2): Status: Acute (6) CKD stage 2 due to type 1 diabetes mellitus: Status: Acute (7) PETER (obstructive sleep apnea): Status: Acute (8) History of bladder cancer: Status: Acute Plan I personally reviewed CT scan, radiology reports, lab results.. Overall presentation consistent with a distal small bowel obstruction at the parastomal hernia. Management was discussed with the patient and his brother. At this time I do not see indications for emergent surgery, the patient had similar symptoms before, it was successfully managed without surgery. However, he needs to be closely observed with serial abdominal exam, in case of deterioration, he may need to go to the operating room for exploratory laparotomy and reduction of the hernia. In the meanwhile, we will continue fluid resuscitation, placed NG tube, continue with pain medications. Serial lactates. I recommend to admit to medicine given his multiple medical problems. Plan to reexamine him in several hours to reassess the situation after NG tube placement. Antibiotics were initiated in the emergency room. No indications for antibiotics for treatment of bowel obstruction, I will defer continuation of antibiotic therapy to medicine. The plan was discussed with ER physician and the patient and his brother. The risk and benefits of observation and serial abdominal exam were discussed with the patient, he agreed to proceed with the plan. Coding Level of Care Code Acute Push Connector Assembler for [facility] Fwd Diagnoses Bowel obstruction K56.609 Parastomal hernia K43.5 Lactic acid acidosis E87.2 Dehydration E86.0 DM type 2 (diabetes mellitus, type 2) E11.9 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 History of bladder cancer Z85.51
--- NOTE | 2021-12-01 12:04 | PM.HP ---
Providers/Chief Complaint Admitting Physician: El Keyes MD Primary Care Provider: Mian Back MD Chief Complaint: Abd pain History of Present Illness Cole Troncoso is a 71 year old male presenting to the hospital with multiple episodes of vomiting and abdominal pain since yesterday. Emesis is yellowish, not bloody. Last bowel movement yesterday, more on the constipated side but no blood and no black or tarry stool. No fever recently. Has had 1 bowel obstruction in the past 4 years ago, that resolved with conservative management. Denies any shortness of breath, cough, chest discomfort. He was having significant shaking chills when I visited him in the emergency department. Review of Systems General: Reports: 10 or more systems reviewed and unremarkable except in HPI and below Const: Reports: chills; Denies: fever(s) Eyes: Denies: change in vision ENMT: Denies: throat pain Card: Denies: chest pain Resp: Denies: dyspnea GI: Reports: abdominal pain, nausea and vomiting; Denies: hematemesis, hematochezia or melena : Denies: flank pain Musc: Denies: neck pain Skin/Breast: Denies: rash Neuro: Denies: headache(s) Psych: Denies: anxiety or depression Endo: Denies: polyuria Alfredo/Lymph: Denies: easy bruising All/Imm: Denies: urticaria Medications/Allergies Home Medications Medication Instructions Recorded Confirmed Last Taken Type albuterol sulfate 90 mcg/actuation 2 inh inhalation Q4H PRN shortness 07/17/20 12/01/21 Unknown Rx aerosol inhaler of breath or wheezing #18 grams custom molded accommodative #1 ea 11/11/20 12/01/21 Unknown Rx orthotic custom molded orthotics #1 ea 11/11/20 12/01/21 Unknown Rx Cam boot to right #1 ea 11/21/20 12/01/21 Unknown Rx linagliptin 2.5 mg-metformin 1,000 1 tab PO BID #180 tabs 12/04/20 12/01/21 12/01/21 08:00 Rx mg tablet (Jentadueto) fluticasone 500 mcg-salmeterol 50 1 inh inhalation BID #60 ea 02/06/21 12/01/21 03/29/21 Rx mcg/dose blistr powdr for inhalation (Advair Diskus) Diabetic Shoes and Custom Molded #1 ea 05/02/21 12/01/21 Unknown Rx Accommodative Orthotics [place] boot right foot #1 ea 06/24/21 12/01/21 Unknown Rx ropinirole 4 mg tablet 8 mg PO BID #180 tabs 08/06/21 12/01/21 12/01/21 08:00 Rx tramadol 100 mg tablet 100 mg PO Q6H PRN pain #60 tabs 08/06/21 12/01/21 11/30/21 Rx New tread for [place] Boot #1 ea 10/29/21 12/01/21 Unknown Rx insulin detemir U-100 100 unit/mL 40 unit SUBCUT BID 12/01/21 12/01/21 12/01/21 History (3 mL) subcutaneous pen (Levemir FlexTouch U-100 Insulin) midodrine 5 mg tablet 5 mg PO BID PRN Blood Pressure 12/01/21 12/01/21 Unknown History phenylephrine HCl 1 % nasal spray 1 spray intranasal BID 12/01/21 12/01/21 Unknown History (4 Way) Allergies Allergy/AdvReac Type Severity Reaction Status Date / Time Penicillins Allergy Unknown Verified 10/28/21 13:05 PFSH Acute PFSH: Medical History (Updated 12/01/21 @ 13:32 by El Keyes MD) Acute renal failure CKD stage 2 due to type 1 diabetes mellitus Diabetes mellitus -insulin dependent Enterocolitis History of bladder cancer Hx of intestinal obstruction Hypotension Obesity (BMI 30.0-34.9) PETER (obstructive sleep apnea) Parastomal hernia Poorly controlled diabetes mellitus -hx of IDDM type II, uncontrolled, complicated by peripheral neuropathy and nephropathy -A1c-11.5 -Accuchecks, ISS, hypoglycemia precautions. BG well controlled with scheduled insulin -consistent carb diet as tolerated Pyelonephritis -UA indicative of infection -evidence of mild focal R pyelonephritis on CT -urine cx: Klebsiella oxytoca, sensitivity noted -blood cx: 2/2 bottles positive for klebsiella oxytoca; repeat set prelim negative -associated sepsis given tachycardia, leukocytosis, fever, pro-calcitonin elevated (1.35). Sepsis now resolved -continue to monitor vital signs; stable -minimal leukocytosis -has urostomy secondary to hx of bladder cancer; continue to monitor urine output -continue Ceftriaxone; will d/c on levaquin -off IVF as oral intake has improved Sepsis Surgical History History of cholecystectomy History of esophageal hernia repair History of shoulder surgery History of urostomy Family History Other Hypertension Social History Smoking and tobacco status: never smoked Alcohol intake: former Marital status: / Current occupational status: disabled History of recent travel: No Current gender identity: Male Vitals/I&O/Wt Last Vital Signs Temp 98.1 F 12/01/21 08:52 Pulse 115 H 12/01/21 09:01 Resp 16 12/01/21 09:01 BP 124/93 12/01/21 09:01 Pulse Ox 97 12/01/21 09:01 O2 Del Method 12/01/21 09:01 Weight last 48 hrs Weight 90.718 kg Physical Exam Narrative: General exam is an uncomfortable appearing white male, with shaking chills HEENT: Atraumatic and normocephalic. Pupils equally round. Oropharynx clear. NG in place Neck is supple no lymphadenopathy or thyromegaly Cardiovascular tachycardic, regular, no murmur Lungs clear no wheezing or crackles Abdomen is soft. Hypoactive bowel sounds. Urostomy noted on the right. Surgical scars noted. No obvious mass. exams deferred Extremities no cyanosis clubbing or edema, cap refill brisk Skin no rash Neuro no obvious focal deficits Data : 12/01/21 09:20 12/01/21 09:20 Other Labs: Lactic acid elevated at 5.7. Repeat is 7.3. Sepsis boluses were given. LFTs are normal Chest x-ray no infiltrate CT abdomen and pelvis noncontrast demonstrated post cystectomy with ileal conduit, high-grade distal small bowel obstruction, bilateral renal calculi without hydronephrosis and prior cholecystectomy A&P Assessment and plan (1) Small bowel obstruction: Surgical consultation appreciated NG to low intermittent suction Secondary to significant chills, concern on admission exists for bacterial translocation. Cipro and Flagyl have been initiated. Continue hydration Conservative management as planned currently Status: Acute (2) Acute renal failure: Patient with evidence of acute kidney injury Avoid any renal toxins Hydration Bladder scan to rule out any retention Check UA with micro Consider renal ultrasound if does not improve, or concerns on urinalysis If evidence of significant retention, Place [facility]ner Status: Acute Qualifiers: Acute renal failure type: unspecified Qualified Code(s): N17.9 - Acute kidney failure, unspecified (3) Diabetes mellitus: Sliding scale insulin Status: Acute Qualifiers: Diabetes mellitus type: type 2 Diabetes mellitus retirement insulin use: with retirement use Diabetes mellitus complication status: without complication Qualified Code(s): E11.9 - Type 2 diabetes mellitus without complications; Z79.4 - FPC (current) use of insulin (4) History of bladder cancer: Patient with history of cystectomy, ileal conduit with urostomy Status: Acute Plan Multiple other medical problems as outlined in past medical history Full code Heparin will suffice for DVT prophylaxis Pepcid for GI prophylaxis Attestations Medical Necessity Statement*: Will need greater than 2 midnight stay secondary to small bowel obstruction Coding Level of Care Code Acute 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
--- NOTE | 2021-12-01 12:18 | XR_ITS ---
WS: [id number] XR KUB portable [id number] REASON FOR EXAM: NG tube placement FINDINGS: Nasogastric tube is been placed the tip is in a position compatible with just within the fundus of th e stomach. Multiple significantly dilated small bowel loops are seen in the central and left upper abdomen. No free air is identified. XR/XR KUB portable [id number] IMPRESSION: Nasogastric tube placement as above. The tube could be advanced another 2-3 cm for more optimal position.
[2021-12-01 12:29] LABS: Glucose Point of Care 323 mg/dL (70-110)
[2021-12-01] MEDS: midazolam 1 mg/mL INJ 2 mL IVP (12:52)
[2021-12-01 12:57] LABS: Lactic Acid level (Lactate) 7.3 mmol/L (0.5-2.2)
[2021-12-01 14:30] LABS: Thyroid Stimulating Hormone 2.73 uIU/mL (0.27-4.20)
--- NOTE | 2021-12-01 14:32 | PM.PN ---
Subjective Subjective: The patient was reexamined at 2:20 PM. Labs and vital signs were reviewed. He received 3 L IV bolus totally, almost 2 L out of NG tube. Lactate is uptrending, however, it seems that it was drawn before also resuscitation fluids was given. The patient received Versed for shivering. The patient stated that his pain improved significantly after the placement of NG tube. His distention improved as well. On physical exam his abdomen is much softer, essentially it is nontender to palpation, no peritoneal signs. The hernia is still not reducible, however, it is much softer as well. There is a lot of urine in the ileal conduit opening. Abdominal x-ray was reviewed. NG tube was repositioned and advanced 5 cm. I will order another abdominal x-ray. I discussed the situation with the patient again. Clinically, he is doing much better. I think that the lactate value lags behind his physiologic improvement. I explained to the patient that his surgery, if necessary, will be a complicated one given multiple prior laparotomies as well as placement and removal of mesh. There are chances of damaging the ureter as well, high likelihood that it will be involved in the density history of process given prior ureteral injury from the mesh. I discussed the case with urology on-call, Dr. Parmar. He will be able to assist with identification of the ureter if necessary intraoperatively. The patient would like to stay in the [facility] and not to go to [place] at this time. I sent request for his medical records from [facility] so I can review them and come up with a better operative plan if necessary. Unfortunately, the patient does not remember the name of the surgeon, he remembers only that the surgery was done 4 years or so ago. Continue IV fluids, resuscitation, I will give him 1 dose of Protonix, continue pain medications, NG tube to suction. Continue serial abdominal exam. 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
[2021-12-01 14:42] LABS: Blood Urine 2+ (Negative); Glucose Urine UA Norm (Normal); Ketones Urine Negative (Negative); Protein Urine 2+ (Negative); Urine Appearance Cloudy (CLEAR); Urine Color Yellow (Yellow); pH Urine 9 (5-7)
[2021-12-01 14:43] LABS: Add Urine Microscopic? YES; Bilirubin Urine Neg (Negative); Leukocyte Esterase Urine 2+ (Negative); Nitrate Urine Negative (Negative); Sulfosalicylic Acid Urine Positive (Negative); Urobilinogen Urine Norm (Negative)
[2021-12-01 14:46] LABS: Squamous Epithelial Cell Urine 0-4 /hpf (0-5)
[2021-12-01 14:47] LABS: Bacteria Urine 3+ /hpf
[2021-12-01 14:48] LABS: Add Urine Culture? Yes; Amorphous Sediment Urine 1+ /hpf; Mucus Urine TRACE /hpf; Triple Phosphate Crystal Urine 25-40 /hpf
[2021-12-01] MEDS: pantoprazole 40 mg SDV IVP (14:59)
--- NOTE | 2021-12-01 15:15 | XR_ITS ---
WS: [id number] XR abdomen 1V* [id number] REASON FOR EXAM: NGT repositioned FINDINGS: Nasogastric tube has been advanced significantly and likely is within the duodenum. The small bowel bowel loops show significant decompression compared to the examination of 1243 this s kaci day. No other significant interval change or new finding. XR/XR abdomen 1V* [id number] IMPRESSION: NG tube repositioned as above. Significant decompression of small bowel loops compared to the previous exam.
--- NOTE | 2021-12-01 15:28 | PM.PN ---
Subjective Subjective: Blood pressure remains low. No significant improvement after fourth liter of IV fluids. He fevered to 103. He was reevaluated by medicine, Levophed will be initiated. He will be admitted to the ICU for close monitoring. Labs were reordered at 1700, abdomen remains softly distended, minimal tenderness to palpation, no peritoneal signs. Bowel sounds very quiet. Continue with a serial abdominal exam, if abdominal exam deteriorates, I will take him to the operating room for exploration. If abdominal exam remains equivocal, I will repeat CT scan given significant risk of perioperative morbidity and mortality. 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
[2021-12-01 15:35] LABS: Partial Thromboplastin Time 33.2 SECONDS (23.9-36.7)
[2021-12-01 15:40] LABS: Phosphorus 2.9 mg/dL (2.5-4.5)
[2021-12-01 15:49] LABS: Cortisol Random 47.75 ug/dL (2.47-19.5)
[2021-12-01] MEDS: sodium chloride 0.9% 250 ML 200 ML IV (16:10)
[2021-12-01] MEDS: sodium chloride 0.9% 1,000 ML 999 ML IV (16:56)
--- NOTE | 2021-12-01 17:38 | P.PN_ITS ---
Subjective Subjective: The patient was reevaluated at 1700. He denies abdominal pain. He has no specific complaints at this time. Not passing gas. His urostomy continue to leak around the bag. NG tube in place, bilious output. He is on 7 mcg of Levophed, blood pressure in the low 80s. Heart rate in the low 100. His saturation is in the low 90s. It seems that the patient only partially responded to fluid resuscitation at this time. However, his abdominal exam improved significantly, abdomen is soft, slightly distended, nontender to palpation, there are no peritoneal signs, bowel sounds present. Blood work is pending. I will order another liter of IV fluids bolus. Continue broad-spectrum antibiotics for septic shock. I will place arterial line to allow frequent blood draws as well as continuous blood pressure monitoring. He will also require a central line for infusion of the vasopressors. Facemask with oxygen to maintain saturation about 94. Albuterol treatment with RT. As needed. Vitals/I&O/Wt Last Vital Signs Temp 98.1 F 12/01/21 08:52 Pulse 77 12/01/21 16:35 Resp 31 H 12/01/21 16:35 BP 81/55 12/01/21 16:35 Pulse Ox 94 12/01/21 16:35 O2 Del Method 12/01/21 09:01 12/01/21 12/01/21 12/01/21 06:59 14:59 22:59 Intake Total 3021.54 / 3021.54 Balance 3021.54 / 3021.54 Weight last 48 hrs Weight 200 lb Data : 12/01/21 09:20 12/01/21 09:20 Attestations Medical Necessity Statement*: SBO Coding Level of Care Code Acute Gis Web Developer for g Elan
--- NOTE | 2021-12-01 17:48 | P.PCN_ITS ---
Procedure/Consent Consent: Consent for Procedure: Consent obtained from patient, Risks & Benefits reviewed and Agrees to proceed with procedure Procedure Narrative: Placement of the arterial line in the left radial artery. The procedure was discussed with the patient and consent was obtained. Risk and benefits of the procedure were discussed. Daron test was performed on the left, the palmar arch was continuous. Left hand and lower forearm were prepped with chlorhexidine. Skin was anesthetized with lidocaine. Under ultrasound guidance with direct visualization of the needle entrance site left radial artery was punctured with a needle and small gauge catheter was placed. The catheter was connected to the monitor and intra- arterial placement was confirmed. The catheter was sutured to the skin with 0 silk and secured with Tegaderm. The patient tolerated the procedure well. There was no complications.
[2021-12-01 17:56] LABS: Basophils % 0.3 %; Hematocrit 41.1 % (42.0-52.0); Hemoglobin 14.5 g/dL (11.7-16.6); Lymphocytes # 0.9 10^3/uL (0.8-4.8); Lymphocytes % 7.2 %; Mean Corpuscular HGB Conc 35.3 g/dL (30.0-36.0); Mean Corpuscular Hemoglobin 30.9 pg (28.0-34.0); Mean Corpuscular Volume 87.6 fl (80-94); Mean Platelet Volume 10.9 fL (7.4-10.4); Monocytes # 1.4 10^3/uL (0.2-0.9); Monocytes % 11.9 %; Neutrophils # 9.51 10^3/uL (1.8-7.7); Neutrophils % 79.8 %; Nucleated Red Blood Cells % 0 %; Platelet Count 167 10^3/cmm (130-400); Red Blood Count 4.69 10^6/uL (4.1-5.3); Red Cell Distribution Width 13.2 % (12.1-15.1); White Blood Count 11.9 10^3/uL (4.0-10.0)
[2021-12-01 17:58] LABS: ABG PCO2 37.2 mmHg (35-45); ABG PH Result 7.52 (7.35-7.45); Alveolar-Arterial Oxygen Gradi 13.7 mmHg (5-10); Arterial Blood Gas Hematocrit 44.6 % (42-52); Base Excess ABG 7.4 mmol/L (-2.0-2.0); Blood Gas Operator Identificat AMH; Blood Gas Sample Site Not specified; Blood Gas Sample Type Arterial; Carboxyhemoglobin 2.2 %THgb (0.4-20.1); HCO3 ABG 30.6 mmol/L (22-26); HGB O2 Sat 92.8 % (95-100); Methemoglobin 0.7 % (0.4-1.5); Oxygen Device NC; Oxygen Saturation ABG 95.6; PO2 ABG 75.5 mmHg (80.0-100.0); Potassium Level - ABG 3.2 mmol/L (3.5-5.0); Total Hemoglobin 14.6 g/dL (14-18)
[2021-12-01 18:06] LABS: Lactate (Lactic Acid level) 3.4 mmol/L (0.5-2.2)
[2021-12-01 18:12] LABS: INR 1.35 (0.8-1.2)
[2021-12-01 18:13] LABS: Partial Thromboplastin Time 33.3 SECONDS (23.9-36.7)
[2021-12-01 18:15] LABS: Anion Gap 17.3 (5-19); Blood Urea Nitrogen 35 mg/dL (8-23); Calcium 8.3 mg/dL (8.5-10.5); Carbon Dioxide 28 mmol/L (22-29); Chloride 98 mmol/L (98-107); Glucose 220 mg/dL (65-115); Magnesium 1.2 mg/dL (1.7-2.3); Osmolality Calculated 305 mOsm/kg (285-295); Potassium 3.3 mmol/L (3.5-5.1); Sodium 140 mmol/L (136-145)
[2021-12-01 18:17] LABS: Phosphorus 0.7 mg/dL (2.5-4.5)
[2021-12-01 18:22] LABS: Slide Review Slide Review Perform
[2021-12-01] MEDS: midazolam 1 mg/mL INJ 2 mL 2 MG IVP (18:58)
--- NOTE | 2021-12-01 18:59 | PC.NURSE ---
Pts blood pressure was dropping, fell to 62/44 Dr. Keyes was notified and came to bedside. Fluid bolus given and norepinephrine was started at 5mcg and titrated to keep map of 65 of higher.
--- NOTE | 2021-12-01 19:03 | PC.NURSE ---
Surgeon came to room and placed a A line and central line. Pt was AAOx4, he has not c/o any pain.
--- NOTE | 2021-12-01 19:10 | P.PCN_ITS ---
Procedure Note: Date of procedure: 12/01/21 Pre-procedure diagnosis: Need for vasopressors Post-procedure diagnosis: same Procedure: Placement of the ultrasound-guided right IJ Complications: EBL. Minimal Antibiotics. On scheduled antibiotics for septic shock Anesthesia local Details of the procedure: The patient will require administration of Levophed. She will need a central line placed. Procedure, risks, benefits were discussed with the patient. She agreed to proceed. Under ultrasound guidance with direct visualization of the needle entry right internal jugular vein was punctured with 18-gauge needle. Wire was advanced into the right heart. There was no arrythmia. Dilator was utilized over the wire. Triple-lumen central line was placed over the wire. All ports were flushed and aspirated. Central line was sutured in place. Sterile dressing was applied. X-ray was performed after the central line was placed. I personally reviewed x- ray. Central line is in good position in the right atrium. Okay to use central line. Discussed with the nursing staff. 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
[2021-12-01] MEDS: morphine 4 mg/mL SDV 1 mL 2 MG IVP (21:16)
[2021-12-01] MEDS: sodium chloride 0.9% 1,000 ML 150 ML IV (21:17)
[2021-12-01] MEDS: magnesium sulfate premix 2 GM/50 ML PIGGYBACK IV (21:18)
[2021-12-01] MEDS: famotidine 20 mg/2 mL INJ IVP (21:22)
[2021-12-01] MEDS: heparin 5,000 unit/mL INJ 1 mL 5000 UNIT SUBCUT (21:23)
[2021-12-01] MEDS: vancomycin 1,250 MG/250 ML PIGGYBACK 250 MG IV (21:23)
[2021-12-01] MEDS: ondansetron 2 mg/ML SDV 2 mL 4 MG IVP (22:13)
--- NOTE | 2021-12-01 22:29 | P.PN_ITS ---
Subjective Subjective: The chart was reviewed and the case was discussed with the nursing staff. The patient is doing better. Going down on Levophed. Blood pressure improved. Less tachycardic. Plan to continue ongoing management. Central line was cleared for use. I will check his lactate again. If continues to downtrend, we will continue nonoperative management even clinical improvement. We will continue frequent reassessments. If necessary, I will evaluate with a CT scan tomorrow morning. I also ordered an abdominal x-ray for tomorrow. 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
[2021-12-01 23:00] LABS: Glucose Point of Care 285 mg/dL (70-110)
[2021-12-01] MEDS: HYDROmorphone 1 mg/mL INJ 1 mL 0.4 MG IVP (23:21)
[2021-12-01] MEDS: acetaminophen 1,000 MG/100 ML PIGGYBACK 400 MG IV (23:23)
[2021-12-01 23:30] LABS: Lactate (Lactic Acid level) 5.3 mmol/L (0.5-2.2)
[2021-12-02] VITALS (75 sets, daily range): BP systolic 81–146; BP diastolic 48–96; PULSE 93–111; RESP 12–24; TEMP 36.6–38.2; O2SAT 88–100
--- NOTE | 2021-12-02 00:52 | XRR_ITS ---
PROCEDURE INFORMATION: Exam: XR Abdomen Exam date and time: 12/02/2021 12:58 AM Age: 71 years old Clinical indication: Other: Bowel obstruction TECHNIQUE: Imaging protocol: Radiologic exam of the abdomen. Views: Frontal supine view of the abdomen. 1 View. COMPARISON: CR XR abdomen 1V* [id number] 12/01/2021 3:22 PM FINDINGS: Tubes, catheters and devices: Gastric tube is in place with tip either at distal gastric antrum or in gastric pylorus region. Gastrointestinal tract: Dilated small bowel noted and has shown no significant change. Bones/joints: No acute findings. XR/XR KUB portable [id number] IMPRESSION: Gastric tube has been pulled back with tip now either at distal gastric antrum or gastric pylorus. No significant change in bowel distention.
[2021-12-02] MEDS: sodium chloride 0.9% 500 ML IV (01:23)
[2021-12-02] MEDS: metroNIDAZOLE IV 500 MG/100 ML PREMIX 100 MG IV (01:25)
[2021-12-02 01:43] LABS: INR 1.16 (0.8-1.2)
[2021-12-02 01:47] LABS: Basophils % 0.3 %; Eosinophils % 0.5 %; Hematocrit 40.6 % (42.0-52.0); Hemoglobin 13.2 g/dL (11.7-16.6); Lymphocytes # 0.7 10^3/uL (0.8-4.8); Lymphocytes % 11.6 %; Mean Corpuscular HGB Conc 32.5 g/dL (30.0-36.0); Mean Corpuscular Hemoglobin 29.8 pg (28.0-34.0); Mean Corpuscular Volume 91.6 fl (80-94); Mean Platelet Volume 11.2 fL (7.4-10.4); Monocytes # 0.7 10^3/uL (0.2-0.9); Monocytes % 12.1 %; Neutrophils # 4.44 10^3/uL (1.8-7.7); Nucleated Red Blood Cells % 0 %; Platelet Count 147 10^3/cmm (130-400); Positive M 1; Red Blood Count 4.43 10^6/uL (4.1-5.3); Red Cell Distribution Width 13.3 % (12.1-15.1); White Blood Count 5.9 10^3/uL (4.0-10.0)
[2021-12-02 02:00] LABS: Lactate (Lactic Acid level) 3.5 mmol/L (0.5-2.2)
[2021-12-02 02:01] LABS: Alanine Aminotransferase 14 U/L (0-41); Albumin Level 2.9 g/dL (3.5-5.2); Alkaline Phosphatase 68 U/L (40-130); Anion Gap 18.7 (5-19); Aspartate Amino Transferase 22 U/L (0-40); Blood Urea Nitrogen 36 mg/dL (8-23); Calcium 7.9 mg/dL (8.5-10.5); Carbon Dioxide 26 mmol/L (22-29); Chloride 103 mmol/L (98-107); Globulin 3.1 g/dL (1.3-4.6); Glucose 202 mg/dL (65-115); Magnesium 1.9 mg/dL (1.7-2.3); Osmolality Calculated 312 mOsm/kg (285-295); Potassium 3.7 mmol/L (3.5-5.1); Sodium 144 mmol/L (136-145); Total Bilirubin 0.6 mg/dL (0.15-1.2)
[2021-12-02] MEDS: sodium chloride 0.9% 1,000 ML 200 ML IV (03:27)
[2021-12-02] MEDS: morphine 4 mg/mL SDV 1 mL 2 MG IVP ×7 (03:42→22:12)
[2021-12-02 05:31] LABS: Lactate (Lactic Acid level) 1.8 mmol/L (0.5-2.2)
--- NOTE | 2021-12-02 06:00 | XRR_ITS ---
PROCEDURE INFORMATION: Exam: XR Abdomen Exam date and time: 12/02/2021 6:41 AM Age: 71 years old Clinical indication: Device placement; Gi device; Nasogastric tube; Additional info: Ngt location. Sbo, evaluate progression of the sbo TECHNIQUE: Imaging protocol: Radiologic exam of the abdomen. Views: Frontal supine view of the abdomen. 1 View. COMPARISON: CR (ABDOMEN, ) 12/02/2021 12:58 AM FINDINGS: Tubes, catheters and devices: Feeding tube remain stable with its tip near the gastric antrum. Gastrointestinal tract: Dilated small bowel loops are again identified measuring up to 34 mm. On the previous examination the measured up to 51 mm. Intraperitoneal space: Right upper quadrant clips are stable. Organs: Clips are seen throughout the pelvis possibly from a prostatectomy. Bones/joints: Unremarkable. XR/XR abdomen 1V* [id number] IMPRESSION: Improvement in the small bowel obstruction.
--- NOTE | 2021-12-02 07:10 | PM.PN ---
Subjective Subjective: Cole reports his belly feels better. His restless legs are irritating him. Events of last night with increase of norepinephrine, adding of vasopressin are noted. Medications: Reviewed: Yes Vitals/I&O/Wt Last Vital Signs Temp 98.1 F 12/02/21 03:55 Pulse 93 12/02/21 03:55 Resp 12 12/02/21 03:55 BP 118/60 12/02/21 03:55 Pulse Ox 97 12/02/21 03:55 O2 Del Method 12/02/21 03:55 O2 Flow Rate 3 12/02/21 03:55 12/01/21 12/02/21 12/02/21 22:59 06:59 14:59 Intake Total 1600 / 4621.54 2245.9839 / 6867.5239 Output Total 0 / 0 400 / 400 Balance 1600 / 4621.54 1845.9839 / 6467.5239 Weight last 48 hrs Weight 90.718 kg Physical Exam Narrative: General exam, conversant. Reporting some discomfort in his legs Neck is supple no lymphadenopathy thyromegaly, right central line noted Cardiovascular regular rate and rhythm without murmur Lungs clear Abdomen is slight distention. Hypoactive bowel sounds. Urostomy with urine Extremities no cyanosis clubbing or edema. Cap refill brisk Skin no rash Data : 12/02/21 01:18 12/02/21 01:18 Other Labs: Lactate 1.8 this morning. Magnesium, phosphorus are normal A&P Assessment and plan (1) Small bowel obstruction: Surgical consultation appreciated NG to low intermittent suction Secondary to significant chills, concern on admission existed for bacterial translocation. Before transferring out of the ED concerns of septic shock existed. Continue hydration. Reduce rate Conservative management as planned currently Status: Acute (2) Acute renal failure: Patient with evidence of acute kidney injury Avoid any renal toxins Hydration Urine culture CT scan demonstrated no obstruction Status: Acute Qualifiers: Acute renal failure type: unspecified Qualified Code(s): N17.9 - Acute kidney failure, unspecified (3) Diabetes mellitus: Sliding scale insulin Blood sugars acceptable. 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 Currently on 7 of norepinephrine, vasopressin sepsis dosing. Try to wean today. Arterial line blood pressure acceptable currently. Status: Acute Plan Multiple other medical problems as outlined in past medical history Full code Heparin will suffice for DVT prophylaxis Pepcid for GI prophylaxis Attestations Medical Necessity Statement*: Needs continued hospitalization for IV antibiotics secondary to septic shock, bowel obstruction Critical Care Time: The high probability of a clinically significant, sudden or life threatening deterioration of the patient's [infectious disease, vascular, GI] system(s) required my full and direct attention, intervention and personal management. The critical care time is as shown. 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
--- NOTE | 2021-12-02 08:24 | P.PN_ITS ---
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
[2021-12-02] MEDS: insulin lispro 100 unit/1 mL SUBCUT (08:25)
--- NOTE | 2021-12-02 08:30 | CT_ITS ---
WS: [id number] CT ABDOMEN AND PELVIS NONCONTRAST HISTORY: SBO TECHNIQUE: Imaging performed through the abdomen and pelvis. Oral contrast provided. Coronal and sagi ttal reformats are submitted. All CT scans at [facility] use at least one of these dose optim ization techniques: automated exposure control; mA and/or kV adjustment per patient size (includes ta rgeted exams where dose is matched to clinical indication); or iterative reconstruction. DLP: 943.63 mGy.cm COMPARISON: 12/01/2021 and 04/27/2020 Lower thorax: Mild dependent changes at the lung bases. Nasogastric tube is now present with tip exte nding towards the duodenum. Normal size heart. Liver: Unremarkable unenhanced liver. Gallbladder: Prior cholecystectomy. Pancreas: Normal size and attenuation. Normal pancreatic duct. No pancreatitis or mass. Spleen: Normal. Adrenal glands: Normal. No mass. Right kidney: Normal size kidney. Increasing perinephric soft tissue stranding. Mild increase in size of the RIGHT ureter extending to the ileal conduit since the prior study. Left kidney: Increase in the perinephric stranding and fluid along the pararenal space. Mild dilatati on of the renal pelvis and LEFT ureter. Aorta: Mild atherosclerosis abdominal aorta with no aneurysm. No free fluid, intraperitoneal air or significant lymphadenopathy. GI tract: Since the prior examination nasogastric tube has been placed and there is now less fluid di stention of the stomach. There is continued high-grade small bowel obstruction. Oral contrast has bee n given. The oral contrast extends throughout the proximal and mid small bowel. Oral contrast movemen t is limited due to the high-grade obstruction and small bowel fluid distention. Loops of small bowel measure greater than 3 cm. There is a large calcification which may be contributing to some of the o bstruction within the distal ileal conduit. There is a large parastomal hernia. There is continued fe calization of a loop of small bowel extending into the stoma. Dilated and nondilated loops of small b owel within the hernia sac. No ischemic changes at this time. There has been no improvement. Abdominal wall: See above. Pelvis: No free fluid in the pelvis. Changes of cystectomy. Osseous structures: Unremarkable. CT/CT abdomen pelvis wo con [id number] IMPRESSION: 1. Persistent high-grade small bowel obstruction with the site of obstruction in the RIGHT lower quadrant ostomy site. Patient is status post cystectomy with ileal conduit. There is a dilated loop of small bowel within the parastomal he rnia at the ostomy site. Change in caliber of small bowel leading into the stom a. Consistent with a high-grade obstruction associated with the parastomal hilario ia. No ischemic changes at this time. 2. New bilateral perinephric stranding and very minimal dilatation of the uret ers since the prior study of 12/01/2021. Correlate for developing urinary tract infection. 3. Nasogastric tube in good position with resolution of gastric distention.
--- NOTE | 2021-12-02 08:41 | P.PN_ITS ---
Subjective Subjective: Blood pressure was low overnight, was started on vasopressin, doing much better in the morning, only on 8 of Levophed. He denies any abdominal pain. Nausea resolved. NG tube output 500s overnight, bilious not passing any gas, had some mucus discharge from the rectum. No more fever. Complains only about pain in his legs, this is a chronic problem, restless leg syndrome, he cannot take his medications right now because of the n.p.o. status and bowel obstruction. Vitals/I&O/Wt Last Vital Signs Temp 97.9 F 12/02/21 08:00 Pulse 93 12/02/21 08:00 Resp 18 12/02/21 08:00 BP 117/53 12/02/21 08:00 Pulse Ox 94 12/02/21 08:00 O2 Del Method 12/02/21 07:52 O2 Flow Rate 3 12/02/21 07:52 12/01/21 12/02/21 12/02/21 22:59 06:59 14:59 Intake Total 1600 / 4621.54 2245.9839 / 6867.5239 774.8 / 774.8 Output Total 0 / 0 400 / 400 250 / 250 Balance 1600 / 4621.54 1845.9839 / 6467.5239 524.8 / 524.8 Weight last 48 hrs Weight 200 lb Physical Exam Narrative: General: No acute distress, Psych: [AAOx3] Eyes: [sclerae are white] Head/ENT: [normocephalic, symmetric] CV: [regular] pulse, [tachychardic], no JVD. Heart rate 93, blood pressure 152/70 Lungs: [symmetrical chest rise, some crackles at the bases] Abdomen: [soft, ND, nontender. Parastomal hernia is not reducible. No pain upon palpation of the hernia, around the hernia. Essentially abdomen is nontender to palpation at all. No peritoneal signs. Urostomy continues to leak around the bag.] Ext: Involuntary movements in both lower extremities, consistent with restless leg syndrome Skin: warm Data : 12/02/21 01:18 12/02/21 01:18 Other Labs: Labs were reviewed. White blood cell count is normal. Hemoconcentration resolved. Lactate is down to normal. Electrolytes abnormalities resolved. Serum creatinine at 2.3, consistent with chronic kidney disease combined with acute kidney injury related to septic shock. Other data: Abdominal x-ray was reviewed. NG tube is in the perfect position. Less air- fluid levels in the entire abdomen, consistent with improvement of SBO. A&P Assessment and plan (1) Small bowel obstruction: Status: Acute (2) Parastomal hernia: Status: Acute (3) Septic shock: Status: Acute (4) Acute renal failure: Status: Acute Qualifiers: Acute renal failure type: unspecified Qualified Code(s): N17.9 - Acute kidney failure, unspecified (5) Diabetes mellitus: Status: Acute Qualifiers: Diabetes mellitus type: type 2 Diabetes mellitus termite control service representative insulin use: with snf use Diabetes mellitus complication status: without complication Qualified Code(s): E11.9 - Type 2 diabetes mellitus without complications; Z79.4 - termite control service representative (current) use of insulin (6) History of bladder cancer: Status: Acute (7) Lactic acid acidosis: Status: Acute (8) Dehydration: Status: Acute (9) DM type 2 (diabetes mellitus, type 2): Status: Acute (10) 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 Physiologically he improved significantly. Lactic acidosis resolved. Going down on pressors. He denies any abdominal pain, abdominal exam is essentially benign except not reducible parastomal hernia which is a chronic finding. At this time I do not see any indications for exploratory laparotomy. However, he is overall course is very concerning, while he is hypertension can be related to severe dehydration secondary to nausea and vomiting, I would like to rule out bowel obstruction with a repeat CT scan with oral contrast. He had only 500 of output from NG tube overnight, he should be able to tolerate oral contrast. It will allow to evaluate for complete versus partial obstruction as well as perforation if any. We will reassess his condition after CT scan and make a decision about surgery. I called radiology department and left a message to facilitate its timely performance. Medical records from [facility] were requested, I discussed it with the front end java developer and nursing staff in the ICU, hopefully will be able to get it soon Continue IV fluids, broad-spectrum antibiotics, DVT prophylaxis with heparin. Continue central line, arterial line. Appreciate assistance of the medical team with the management of this compli cated patient. The plan was discussed with the patient and the ICU staff and with the medical team, Dr. 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
[2021-12-02 09:15] LABS: Glucose Point of Care 316 mg/dL (70-110)
[2021-12-02] MEDS: sodium chloride 0.9% 1,000 ML 150 ML IV ×2 (09:43→15:39)
[2021-12-02] MEDS: famotidine 20 mg/2 mL INJ IVP ×2 (09:44→21:14)
[2021-12-02] MEDS: heparin 5,000 unit/mL INJ 1 mL 5000 UNIT SUBCUT ×2 (09:57→21:15)
--- NOTE | 2021-12-02 10:09 | PC.CHAP ---
Pastoral Care Encounter/Spiritual Assessment Type of Contact [] Declined line installer trolley visit [] Patient/Family/Request visit [] Outpatient visit [] Follow-up visit [] Physician referral [] Code/Alert [x] Routine visit [] Staff referral [] Actively dying [x] Patient sleeping [] Family support [] [] Out of room [] Palliative care [] [] Receiving care in room [] Pre-surgical visit [] Trauma [] Long length of stay [x] ICU visit [] Other: Relational/Emotional Strength [] Patient feels connected with others/family/visitors/staff [] Distress [] Loneliness/isolation [] Abandonment Spirituality of Patient [] Person of Radha [] Attends Baptism of their Radha [] Believes in Prayer [] Reads Bible or Restorationism materials [] There are Spiritual issues to be addressed Poultry Dresser Interventions [x] Prayer [] Active listening [] Non-anxious presence [] Spiritual/emotional support [] Crisis/trauma care [] Spiritual counseling [] Bereavement support [] Provided bereavement packet [] Provided Bible/devotional materials [] Provided toy/stuffed animal, coloring book to patient or family member [] Provided Communion [] Anointing/Edgar [] Salvation [x] Completed spiritual assessment [] Other: Impact on Illness or Injury [] Angry [] Fearful [] Anxious [] Often cries [] Exhaustion [] Unable to work [] Unable to attend anglican [] Unable to walk/stand [] Unable to read [] Unable to drive [] Unable to eat/drink [] Unable to sleep [] Unable to be with family [] Patient intubated [] Other: Summary Time spent with patient
[2021-12-02] MEDS: iohexol 300 mg/mL 50 mL Btl PO (10:22)
--- NOTE | 2021-12-02 11:39 | PM.PN ---
Subjective Subjective: The patient was reexamined. He continues to be better, blood pressure 130/80, heart rate just below the 100, he is on 3 mcg of Levophed. Significant improvement compared to yesterday. He denies any abdominal pain. His only complaint is pain in his legs associated with restless leg syndrome. CT scan was reviewed. There is less distention of small bowel loops. There is persistent high-grade small bowel obstruction associated with a parastomal hernia, the contrast did not reach the level of the obstruction. The size of the bowel loop incarcerated in the hernia is slightly smaller compared to yesterday. There is more gas in the right and left colon. This is consistent with partial obstruction, although, it is still hard grade 1. No free fluid, free air in the abdomen or hernia to suggest bowel perforation/necrosis. The patient is in better mental status today. He recalled that he was operated on by Dr. Mat Terrell, urologist at [facility]. I called his office at [phone] and left a message. I would like to discuss the patient care with him, possibly initiated transfer. The patient will likely require a urostomy relocated to the left side. He already had several mesh associated hernia repair on the right and all of them failed. If there is no need for emergency surgery to save his life, he would benefit from transfer to a specialized center. Discussed with the primary care Dr. Kingston. Still waiting for medical records from [facility] to see what surgery was done last time antibiotic mesh was used. I can see the mesh around the hernia on a CT scan, seems to be a permanent mesh, I expect great difficulties in dissecting the ileal conduit free so the hernia can be repaired. High chances of perioperative morbidity and accidental damage to the ureter/conduit. Continue ongoing care in the meanwhile. Vitals/I&O/Wt Last Vital Signs Temp 97.9 F 12/02/21 08:00 Pulse 93 12/02/21 08:00 Resp 18 12/02/21 08:00 BP 117/53 12/02/21 08:00 Pulse Ox 94 12/02/21 08:00 O2 Del Method 12/02/21 07:52 O2 Flow Rate 3 12/02/21 07:52 12/01/21 12/02/21 12/02/21 22:59 06:59 14:59 Intake Total 1600 / 4621.54 2245.9839 / 6867.5239 1142.924 / 1142.924 Output Total 0 / 0 400 / 400 250 / 250 Balance 1600 / 4621.54 1845.9839 / 6467.5239 892.924 / 892.924 Weight last 48 hrs Weight 200 lb Data : 12/02/21 01:18 12/02/21 01:18 Micro: Microbiology 12/01/21 09:33 Urine Culture - Preliminary Urine,Clean Catch Gram Negative Rods Attestations Medical Necessity Statement*: SBO Coding Level of Care Code Acute Motorcoach Operator for g Elan
--- NOTE | 2021-12-02 11:42 | PC.NURSE ---
0900 Radiology brought down contrast for me to put down NG tube. I put it down over 6 minutes and clamped the NG. 1020 Tried to get up to wheelchair to go to CT, but got very nauseated and afraid he was going to vomit, so laid him back down and took him to CT via bed. 1030 BAck to room. Tolerated well. Restless leg syndrome causing him pain in the legs, no pain anywhere else. Spoke with Dr. Keyes, got Morphine order changed to [id number]. Surgeon here, removed ostomy bag and minipulated hernia. I cleaned skin around urostomy with his home care products and applied skin care with towelett. Put new ostomy wafer and bag on and attached a cabrera drainage bag.
[2021-12-02 13:10] LABS: Glucose Point of Care 136 mg/dL (70-110)
[2021-12-02] MEDS: sodium chloride 0.9% 500 ML 999 ML IV (15:29)
[2021-12-02] MEDS: vancomycin 1,250 MG/250 ML PIGGYBACK 250 MG IV (16:22)
[2021-12-02 16:59] LABS: Anion Gap 18.7 (5-19); Blood Urea Nitrogen 30 mg/dL (8-23); Calcium 7.8 mg/dL (8.5-10.5); Carbon Dioxide 23 mmol/L (22-29); Chloride 107 mmol/L (98-107); Glucose 122 mg/dL (65-115); Osmolality Calculated 307 mOsm/kg (285-295); Potassium 3.7 mmol/L (3.5-5.1); Sodium 145 mmol/L (136-145)
[2021-12-02 17:01] LABS: Lactate (Lactic Acid level) 1.3 mmol/L (0.5-2.2)
--- NOTE | 2021-12-02 17:25 | P.PN_ITS ---
Subjective Subjective: The patient continues to do well. He denies any abdominal pain. Urostomy bag was changed and is not leaking anymore. Denies nausea. NG tube in place, bilious drainage, slowing down. He reports some rambling/bowel sounds in the abdomen, however, not passing any gas. Essentially, his only complaint pain and involuntary motions in his lower extremities at this time. He received fluid bolus 500 NS, going to stop Levophed now, he is only on 30 mcg and his blood pressure is [address] Nidhi sneed, however it is already closed. I called [facility] to reach Dr. Bj Greene who was a co-surgeon during his last surgery. He is not on-call today. I discussed the case with a transfer center at [facility] in [place] and is waiting for them to call me back. Continue ongoing care in the meanwhile as outlined previously. Vitals/I&O/Wt Last Vital Signs Temp 98.2 F 12/02/21 16:00 Pulse 93 12/02/21 16:00 Resp 16 12/02/21 16:00 BP 117/53 12/02/21 16:00 Pulse Ox 94 12/02/21 16:00 O2 Del Method 12/02/21 07:52 O2 Flow Rate 3 12/02/21 07:52 12/02/21 12/02/21 12/02/21 06:59 14:59 22:59 Intake Total 2245.9839 / 6867.5239 1179.119 / 1179.119 890 / 2069.119 Output Total 400 / 400 650 / 650 Balance 1845.9839 / 6467.5239 529.119 / 529.119 890 / 1419.119 Weight last 48 hrs Weight 200 lb Data : 12/02/21 01:18 12/02/21 15:24 Micro: Microbiology 12/01/21 09:33 Urine Culture - Preliminary Urine,Clean Catch Gram Negative Rods Attestations Medical Necessity Statement*: SBO Coding Level of Care Code Acute Insurance Producer for Laurig Elan
[2021-12-02 17:30] LABS: Glucose Point of Care 113 mg/dL (70-110)
--- NOTE | 2021-12-02 18:47 | P.TS_ITS ---
Transfer Summary Providers Date of Admission: 12/01/21 15:54 Date of Discharge/Transfer: 12/02/21 Attending Provider at Admission: El Keyes MD Attending Provider at Transfer: El Keyes MD Primary Care Provider: Mian Back MD Transfer Plans: Anticipated date of transfer: 12/02/21 . 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 Permanent problem details: -insulin dependent (6) History of bladder cancer: Status: Acute (7) Lactic acid acidosis: Status: Acute (8) Dehydration: Status: Acute (9) DM type 2 (diabetes mellitus, type 2): Status: Acute (10) 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 Lactate was markedly elevated. CT scan of abdomen and pelvis demonstrated high grade obstruction at region of parastoma hernia RLQ. JULY was noted with creat apporx. 2. IV antibiotics were started. Shortly in to the ER course patient became hypotensive. Fluids resuscitation with sepsis boluses occurred and antibiotics were widened. Surgery consultation was obtained and NG placed. Norepinephrine and ultimately Vasopressin were added. With this treatment patient clinicallhy became more stabe. Vasopressin was able to be discontinued. Norepinephrine weaned significantly. Surgery reevaluated with CT and serial exams. Significant obstruction was still present. Considering patient has had history of cystectomy for bladder CA at [facility] and placement of ileal diversion with ileostomy and hernia around that area it was determined that he should be transferred to a higher level of care at [facility] under the care of Dr. Montes. Surgery here arranged transfer. Vitals were stable at time of transfer. Last creat was 1.8 improving and lactate had returned to normal. Abdominal pain present on admission had resolved. Physical Exam Narrative: See exam done earlier in day TS Data Studies Completed and Pending Pending at discharge Category Date Time Status C DIFF [Clostridioides Difficile PCR] Routine Lab 12/02/21 00:54 Uncollected CBC Auto Diff [Complete Blood Count w/Auto] AM LABS Lab 12/03/21 04:00 Ordered CMP [Comprehensive Metabolic Panel] AM LABS Lab 12/03/21 04:00 Ordered Magnesium AM LABS Lab 12/03/21 04:00 Ordered Urine Culture Routine Lab 12/02/21 00:00 Received Urine Culture Stat Lab 12/01/21 09:33 Results Labs from last 24 hours 12/02/21 12/02/21 12/02/21 17:24 15:24 15:24 WBC RBC Hgb Hct MCV MCH MCHC RDW Plt Count MPV Neut % (Auto) Lymph % (Auto) [place] % (Auto) Eos % (Auto) Baso % (Auto) Neut # (Auto) Lymph # (Auto) [place] # (Auto) Eos # (Auto) Baso # (Auto) Nucleated RBC % (auto) Nucleated RBCs # PT INR Sodium 145 Potassium 3.7 Chloride 107 Carbon Dioxide 23 Anion Gap 18.7 BUN 30 H Creatinine 1.8 H GFR Calculation Not Reportable Glucose 122 H POC Glucose 113 H Calculated Osmolality 307 H Lactate 1.3 Calcium 7.8 L Phosphorus Magnesium Total Bilirubin AST ALT Alkaline Phosphatase Total Protein Albumin Globulin 12/02/21 12/02/21 12/02/21 13:06 07:46 05:04 WBC RBC Hgb Hct MCV MCH MCHC RDW Plt Count MPV Neut % (Auto) Lymph % (Auto) [place] % (Auto) Eos % (Auto) Baso % (Auto) Neut # (Auto) Lymph # (Auto) [place] # (Auto) Eos # (Auto) Baso # (Auto) Nucleated RBC % (auto) Nucleated RBCs # PT INR Sodium Potassium Chloride Carbon Dioxide Anion Gap BUN Creatinine GFR Calculation Glucose POC Glucose 136 H 316 H Calculated Osmolality Lactate 1.8 Calcium Phosphorus Magnesium Total Bilirubin AST ALT Alkaline Phosphatase Total Protein Albumin Globulin 12/02/21 12/02/21 12/02/21 01:18 01:18 01:18 WBC RBC Hgb Hct MCV MCH MCHC RDW Plt Count MPV Neut % (Auto) Lymph % (Auto) [place] % (Auto) Eos % (Auto) Baso % (Auto) Neut # (Auto) Lymph # (Auto) [place] # (Auto) Eos # (Auto) Baso # (Auto) Nucleated RBC % (auto) Nucleated RBCs # PT 15.10 H INR 1.16 Sodium 144 Potassium 3.7 Chloride 103 Carbon Dioxide 26 Anion Gap 18.7 BUN 36 H Creatinine 2.3 H GFR Calculation Not Reportable Glucose 202 H POC Glucose Calculated Osmolality 312 H Lactate 3.5 H Calcium 7.9 L Phosphorus 3.0 D Magnesium 1.9 Total Bilirubin 0.6 AST 22 ALT 14 Alkaline Phosphatase 68 Total Protein 6.0 L D Albumin 2.9 L Globulin 3.1 12/02/21 12/01/21 12/01/21 01:18 22:47 22:02 WBC 5.9 RBC 4.43 Hgb 13.2 Hct 40.6 L MCV 91.6 MCH 29.8 MCHC 32.5 D RDW 13.3 Plt Count 147 MPV 11.2 H Neut % (Auto) 75.0 Lymph % (Auto) 11.6 [place] % (Auto) 12.1 Eos % (Auto) 0.5 Baso % (Auto) 0.3 Neut # (Auto) 4.44 Lymph # (Auto) 0.[address] [place] # (Auto) 0.7 Eos # (Auto) 0.0 Baso # (Auto) 0.0 Nucleated RBC % (auto) 0 Nucleated RBCs # 0.0 PT INR Sodium Potassium Chloride Carbon Dioxide Anion Gap BUN Creatinine GFR Calculation Glucose POC Glucose 285 H Calculated Osmolality Lactate 5.3 H* Calcium Phosphorus Magnesium Total Bilirubin AST ALT Alkaline Phosphatase Total Protein Albumin Globulin Completed Studies During Hospitalization Category Date Time Status CT abdomen pelvis wo con [id number] Stat Cat Scan 12/01/21 09:[address] abdomen pelvis wo con [id number] Stat Cat Scan 12/02/21 08:30 Completed XR KUB portable [id number] Stat Exams 12/01/21 12:18 Completed XR KUB portable [id number] Stat Exams 12/02/21 00:52 Completed XR abdomen 1V* [id number] Routine Exams 12/02/21 06:00 Completed XR abdomen 1V* [id number] Stat Exams 12/01/21 15:15 Completed XR chest 1V [id number] Routine Exams 12/01/21 Completed XR chest 1V portable [id number] Stat Exams 12/01/21 09:07 Completed Laboratory Last Values WBC 5.9 10^3/uL (4.0-10.0) 12/02/21 01:18 RBC 4.43 10^6/uL (4.1-5.3) 12/02/21 01:18 Hgb 13.2 g/dL (11.7-16.6) 12/02/21 01:18 Hct 40.6 % (42.0-52.0) L 12/02/21 01:18 MCV 91.6 fl (80-94) 12/02/21 01:18 MCH 29.8 pg (28.0-34.0) 12/02/21 01:18 MCHC 32.5 g/dL (30.0-36.0) D 12/02/21 01:18 RDW 13.3 % (12.1-15.1) 12/02/21 01:18 Plt Count 147 10^3/cmm (130-400) 12/02/21 01:18 MPV 11.2 fL (7.4-10.4) H 12/02/21 01:18 Neut % (Auto) 75.0 % 12/02/21 01:18 Lymph % (Auto) 11.6 % 12/02/21 01:18 [place] % (Auto) 12.1 % 12/02/21 01:18 Eos % (Auto) 0.5 % 12/02/21 01:18 Baso % (Auto) 0.3 % 12/02/21 01:18 Neut # (Auto) 4.44 10^3/uL (1.8-7.7) 12/02/21 01:18 Lymph # (Auto) 0.7 10^3/uL (0.8-4.8) L 12/02/21 01:18 [place] # (Auto) 0.7 10^3/uL (0.2-0.9) 12/02/21 01:18 Eos # (Auto) 0.0 10^3/uL (0.0-0.8) 12/02/21 01:18 Baso # (Auto) 0.0 10^3/uL (0.0-0.1) 12/02/21 01:18 Nucleated RBC % (auto) 0 % 12/02/21 01:18 Nucleated RBCs # 0.0 /100WBC 12/02/21 01:18 PT 15.10 SECONDS (12.1-14.9) H 12/02/21 01:18 INR 1.16 (0.8-1.2) 12/02/21 01:18 APTT 33.3 SECONDS (23.9-36.7) 12/01/21 17:46 Specimen Type Arterial 12/01/21 17:29 Sample Site Not specified 12/01/21 17:29 ABG pH 7.52 (7.35-7.45) H 12/01/21 17:29 ABG pCO2 37.2 mmHg (35-45) 12/01/21 17:29 ABG pO2 75.5 mmHg (80.0-100.0) L 12/01/21 17:29 ABG HCO3 30.6 mmol/L (22-26) H 12/01/21 17:29 ABG O2 Saturation 95.6 12/01/21 17:29 ABG Base Excess 7.4 mmol/L (-2.0-2.0) H 12/01/21 17:29 Daron Test N/a 12/01/21 17:29 A-a O2 Gradient 13.7 mmHg (5-10) H 12/01/21 17:29 Hematocrit 44.6 % (42-52) 12/01/21 17:29 Hgb O2 Saturation 92.8 % (95-100) L 12/01/21 17:29 Carboxyhemoglobin 2.2 %THgb (0.4-20.1) 12/01/21 17:29 Methemoglobin 0.7 % (0.4-1.5) 12/01/21 17:29 Total Hemoglobin 14.6 g/dL (14-18) 12/01/21 17:29 Sodium 142.0 mmol/L (131-143) 12/01/21 17:29 Potassium 3.2 mmol/L (3.5-5.0) L 12/01/21 17:29 Glucose 210.0 mg/dL (70-115) H 12/01/21 17:29 Ionized Calcium 1.0 mmol/L (1.1-1.4) L 12/01/21 17:29 O2 Delivery Device Nc 12/01/21 17:29 O2 Liters/Min 3.0 % 12/01/21 17:29 FiO2 32.0 % 12/01/21 17:29 Therapeutic Case Manager ID Amh 12/01/21 17:29 Sodium 145 mmol/L (136-145) 12/02/21 15:24 Potassium 3.7 mmol/L (3.5-5.1) 12/02/21 15:24 Chloride 107 mmol/L (98-107) 12/02/21 15:24 Carbon Dioxide 23 mmol/L (22-29) 12/02/21 15:24 Anion Gap 18.7 (5-19) 12/02/21 15:24 BUN 30 mg/dL (8-23) H 12/02/21 15:24 Creatinine 1.8 mg/dL (0.7-1.2) H 12/02/21 15:24 GFR Calculation Not Reportable 12/02/21 15:24 Glucose 122 mg/dL (65-115) H 12/02/21 15:24 POC Glucose 113 mg/dL (70-110) H 12/02/21 17:24 Calculated Osmolality 307 mOsm/kg (285-295) H 12/02/21 15:24 Lactic Acid 5.7 mmol/L (0.5-2.2) H* 12/01/21 09:20 Lactic Acid (Sepsis) 7.3 mmol/L (0.5-2.2) H* 12/01/21 12:27 Lactate 1.3 mmol/L (0.5-2.2) 12/02/21 15:24 Calcium 7.8 mg/dL (8.5-10.5) L 12/02/21 15:24 Phosphorus 3.0 mg/dL (2.5-4.5) D 12/02/21 01:18 Magnesium 1.9 mg/dL (1.7-2.3) 12/02/21 01:18 Total Bilirubin 0.6 mg/dL (0.15-1.2) 12/02/21 01:18 AST 22 U/L (0-40) 12/02/21 01:18 ALT 14 U/L (0-41) 12/02/21 01:18 Alkaline Phosphatase 68 U/L (40-130) 12/02/21 01:18 Creatine Kinase 130 U/L (39-308) 12/01/21 09:20 Total Protein 6.0 g/dL (6.6-8.7) L D 12/02/21 01:18 Albumin 2.9 g/dL (3.5-5.2) L 12/02/21 01:18 Globulin 3.1 g/dL (1.3-4.6) 12/02/21 01:18 TSH 2.73 uIU/mL (0.27-4.20) 12/01/21 09:20 Random Cortisol 47.75 ug/dL (2.47-19.5) H 12/01/21 09:20 Urine Color Yellow (Yellow) 12/01/21 09:33 Urine Appearance Cloudy (CLEAR) 12/01/21 09:33 Urine pH 9 (5-7) H 12/01/21 09:33 Ur Specific [place] 1.010 (1.005-1.030) 12/01/21 09:33 Urine Protein 2+ (Negative) H 12/01/21 09:33 Urine Glucose (UA) Norm (Normal) 12/01/21 09:33 Urine Ketones Negative (Negative) 12/01/21 09:33 Urine Blood 2+ (Negative) H 12/01/21 09:33 Urine Nitrate Negative (Negative) 12/01/21 09:33 Urine Bilirubin Neg (Negative) 12/01/21 09:33 Prot Sulfosalicylic Acd Positive (Negative) 12/01/21 09:33 Urine Urobilinogen Norm mg/dL (Negative) 12/01/21 09:33 Ur Leukocyte Esterase 2+ (Negative) H 12/01/21 09:33 Urine RBC 5-10 /hpf (0-2) H 12/01/21 09:33 Urine WBC 5-10 /hpf (0-5) H 12/01/21 09:33 Ur Squamous Epith Cells 0-4 /hpf (0-5) H 12/01/21 09:33 Triple Phos Crystals 25-40 /hpf H 12/01/21 09:33 Amorphous Sediment 1+ /hpf 12/01/21 09:33 Urine Bacteria 3+ /hpf (NONE) H 12/01/21 09:33 Urine Mucus Trace /hpf 12/01/21 09:33 Radiology Impressions Chest X-Ray 12/01/21 09:07 IMPRESSION: Stable chest without acute abnormality. KUB X-Ray 12/02/21 00:52 IMPRESSION: Gastric tube has been pulled back with tip now either at distal gastric antrum or gastric pylorus. No significant change in bowel distention. Abdomen X-Ray 12/02/21 06:00 IMPRESSION: Improvement in the small bowel obstruction. Abdomen/Pelvis CT 12/02/21 08:30 IMPRESSION: 1. Persistent high-grade small bowel obstruction with the site of obstruction in the RIGHT lower quadrant ostomy site. Patient is status post cystectomy with ileal conduit. There is a dilated loop of small bowel within the parastomal hernia at the ostomy site. Change in caliber of small bowel leading into the stoma. Consistent with a high-grade obstruction associated with the parastomal hernia. No ischemic changes at this time. 2. New bilateral perinephric stranding and very minimal dilatation of the ureters since the prior study of 12/01/2021. Correlate for developing urinary tract infection. 3. Nasogastric tube in good position with resolution of gastric distention. Recent Clincial Data Last Vital Signs Temp 98.2 F 12/02/21 16:00 Pulse 93 12/02/21 16:00 Resp 16 12/02/21 16:00 BP 117/53 12/02/21 16:00 Pulse Ox 94 12/02/21 16:00 O2 Del Method 12/02/21 07:52 O2 Flow Rate 3 12/02/21 07:52 Vital Signs Temp Pulse Resp BP Pulse Ox O2 Del Method O2 Flow Rate 12/02/21 16:00 98.2 F 93 16 117/53 94 12/02/21 14:08 16 94 12/02/21 12:00 98.2 F 93 18 117/53 94 12/02/21 08:00 97.9 F 93 18 117/53 94 12/02/21 07:54 18 94 12/02/21 07:52 93 16 97 Nasal Cannula 3 Intake & Output/Weight 11/30/21 12/01/21 12/02/21 12/03/21 06:59 06:59 06:59 06:59 Intake Total 6867.5239 / 6867.5239 2069.119 / 2069.119 Output Total 400 / 400 1150 / 1150 Balance 6467.5239 / 6467.5239 919.119 / 919.119 Weight 90.718 kg Vitals Last Vital Signs Temp 98.2 F 12/02/21 16:00 Pulse 93 12/02/21 16:00 Resp 16 12/02/21 16:00 BP 117/53 12/02/21 16:00 Pulse Ox 94 12/02/21 16:00 O2 Del Method 12/02/21 07:52 O2 Flow Rate 3 12/02/21 07:52 TS Medications Medications Albuterol Sulfate (Albuterol 2.5 Mg/0.5 Ml Neb) 2.5 mg INHALATION Q4H PRN PRN Reason: WHEEZING Dextrose (Dextrose 50% Syringe 50 Ml) 25 ml IVP ONCE PRN; Protocol PRN Reason: hypoglycemia protocol Dextrose (Dextrose 50% Syringe 50 Ml) 50 ml IVP PRN PRN; Protocol PRN Reason: hypoglycemia protocol Famotidine (Famotidine 20 Mg/2 Ml Inj) 20 mg IVP Q12H [facility] Last Admin: 12/02/21 09:44 Dose: 20 mg Glucagon (Glucagon 1 Mg/Ml Inj 1 Ml) 1 mg IM ONCE PRN; Protocol PRN Reason: Adult Acute Hypoglycemia Prot. Heparin Sodium (Porcine) (Heparin 5,000 Unit/Ml Inj 1 Ml) 5,000 unit SUBCUT Q12H [facility] Last Admin: 12/02/21 09:57 Dose: 5,000 unit Hydromorphone HCl (Hydromorphone 1 Mg/Ml Inj 1 Ml) 0.4 mg IVP Q4H PRN PRN Reason: pain. Last Admin: 12/01/21 23:21 Dose: 0.4 mg Norepinephrine Bitartrate 4 mg (/ Dextrose) 254 mls @ 0 mls/hr IV .Q0M RAFAELA; Protocol Last Titration: 12/02/21 13:40 Dose: 4 mcg/min, 15.24 mls/hr Vancomycin/PEG/NADA/Lysine/Water (Vancocin) 1,250 mg in 250 mls @ 250 mls/hr IV Q24H [facility] Last Admin: 12/02/21 16:22 Dose: 250 mls/hr Sodium Chloride (Sodium Chloride 0.9%) 1,000 mls @ 150 mls/hr IV .Q6H40M [facility] Last Admin: 12/02/21 15:39 Dose: 150 mls/hr Dextrose (D5w) 500 mls @ 100 mls/hr IV ONCE PRN; Protocol PRN Reason: Adult Acute Hypoglycemia Prot Vasopressin 100 unit/ Sodium (Chloride) 100 mls @ 0 mls/hr IV .Q0M [facility]; Protocol Last Titration: 12/02/21 08:00 Dose: 0 unit/min, 0 mls/hr Imipenem/Cilastatin Sodium 250 (mg/ Sodium Chloride) 100 mls @ 200 mls/hr IV Q6H [facility] Last Admin: 12/02/21 15:34 Dose: 200 mls/hr Insulin Human Lispro (Insulin Lispro 100 Unit/1 Ml) 0 unit SUBCUT WM&BEDTIME [facility]; Protocol Last Admin: 12/02/21 17:30 Dose: Not Given Morphine Sulfate (Morphine 4 Mg/Ml Sdv 1 Ml) 2 mg IVP Q2H PRN PRN Reason: SEVERE PAIN Last Admin: 12/02/21 16:30 Dose: 2 mg Ondansetron HCl (Ondansetron 2 Mg/Ml Sdv 2 Ml) 4 mg IVP Q6H PRN PRN Reason: NAUSEA AND VOMITING Last Admin: 12/01/21 22:13 Dose: 4 mg Discontinued Medications Famotidine (Famotidine 20 Mg/2 Ml Inj) 20 mg IVP Q12H [facility] Last Admin: 12/01/21 21:22 Dose: 20 mg Heparin Sodium (Porcine) (Heparin 5,000 Unit/Ml Inj 1 Ml) 5,000 unit SUBCUT Q12H [facility] Last Admin: 12/01/21 21:23 Dose: 5,000 unit Hydrocortisone Sodium Succinate (Hydrocortisone 100 Mg/2 Ml Sdv) 100 mg IVP ONCE ONE Stop: 12/01/21 15:14 Last Admin: 12/01/21 21:05 Dose: Not Given Hydromorphone HCl (Hydromorphone 1 Mg/Ml Inj 1 Ml) 0.4 mg IVP PRN PRN PRN Reason: pain. Sodium Chloride (Sodium Chloride 0.9%) 2,721.54 mls @ 2,721.54 mls/hr 30 ml/kg infuse over 1 hr (2721.54 ml) IV .Q1H ONE Stop: 12/01/21 10:29 Last Infusion: 12/01/21 14:56 Dose: Infused Ciprofloxacin/Dextrose (Cipro) 400 mg in 200 mls @ 200 mls/hr IV ONCE ONE; Protocol Stop: 12/01/21 11:08 Last Infusion: 12/01/21 11:19 Dose: Infused Metronidazole (Flagyl Iv) 500 mg in 100 mls @ 100 mls/hr IV ONCE ONE Stop: 12/01/21 11:08 Last Infusion: 12/01/21 11:19 Dose: Infused Sodium Chloride (Sodium Chloride 0.9%) 250 mls @ 200 mls/hr IV .Q1H15M ONE Stop: 12/01/21 15:14 Last Infusion: 12/02/21 03:45 Dose: Infused Sodium Chloride (Sodium Chloride 0.9%) 1,000 mls @ 999 mls/hr IV .Q1H1M ONE Stop: 12/01/21 15:51 Last Infusion: 12/01/21 19:06 Dose: Infused Imipenem/Cilastatin Sodium 500 (mg/ Sodium Chloride) 100 mls @ 200 mls/hr IV Q8H RAFAELA Last Admin: 12/02/21 07:24 Dose: 200 mls/hr Potassium Phosphate 40 meq/ (Sodium Chloride) 109.0909 mls @ 27.25 mls/hr IV O NCE ONE Stop: 12/01/21 23:00 Last Infusion: 12/02/21 03:44 Dose: Infused Magnesium Sulfate (Magnesium Sulfate Premix) 2 gm in 50 mls @ 50 mls/hr IV ONCE ONE Stop: 12/01/21 19:59 Last Infusion: 12/01/21 22:52 Dose: Infused Acetaminophen (Acetaminophen) 1,000 mg in 100 mls @ 400 mls/hr IV ONCE ONE Stop: 12/01/21 23:10 Last Infusion: 12/01/21 23:45 Dose: Infused Sodium Chloride (Sodium Chloride 0.9%) 500 mls @ 500 mls/hr IV .Q1H RAFAELA Last Admin: 12/02/21 03:44 Dose: Not Given Metronidazole (Flagyl Iv) 500 mg in 100 mls @ 100 mls/hr IV Q8H RAFAELA; Protocol Last Infusion: 12/02/21 02:25 Dose: Infused Sodium Chloride (Sodium Chloride 0.9%) 500 mls @ 999 mls/hr IV .Q31M ONE Stop: 12/02/21 15:30 Last Admin: 12/02/21 15:29 Dose: 999 mls/hr Iohexol (Iohexol 300 Mg/Ml 50 Ml Btl) 0 ml PO ONCE ONE Stop: 12/02/21 10:23 Last Admin: 12/02/21 10:22 Dose: 25 ml Lidocaine HCl (Lidocaine 1% Inj 20 Ml Mdv (Ml)) 0 ml INTRADERMA ONCE ONE Stop: 12/01/21 18:19 Last Admin: 12/01/21 21:06 Dose: Not Given Midazolam HCl (Midazolam 1 Mg/Ml Inj 2 Ml) 1 mg IVP ONCE ONE Stop: 12/01/21 12:38 Last Admin: 12/01/21 12:52 Dose: 1 mg Midazolam HCl (Midazolam 1 Mg/Ml Inj 2 Ml) 2 mg IVP ONCE ONE Stop: 12/01/21 17:54 Last Admin: 12/01/21 18:58 Dose: 2 mg Morphine Sulfate (Morphine 4 Mg/Ml Sdv 1 Ml) 2 mg IVP Q4H PRN PRN Reason: SEVERE PAIN Last Admin: 12/02/21 07:54 Dose: 2 mg Pantoprazole Sodium (Pantoprazole 40 Mg Sdv) 40 mg IVP ONCE ONE Stop: 12/01/21 14:03 Last Admin: 12/01/21 14:59 Dose: 40 mg Allergies Penicillins Allergy (Verified 10/28/21 13:05) Unknown Home Medications albuterol sulfate 90 mcg/actuation aerosol inhaler 2 inh inhalation Q4H PRN shortness of breath or wheezing #18 grams 07/17/20 [Rx Confirmed 12/01/21] custom molded accommodative orthotic #1 ea 11/11/20 [Rx Confirmed 12/01/21] custom molded orthotics #1 ea 11/11/20 [Rx Confirmed 12/01/21] Cam boot to right #1 ea 11/21/20 [Rx Confirmed 12/01/21] linagliptin 2.5 mg-metformin 1,000 mg tablet (Sharritalazaro) 1 tab PO BID #180 tabs 12/04/20 [Rx Confirmed 12/01/21] fluticasone 500 mcg-salmeterol 50 mcg/dose blistr powdr for inhalation (Advair Diskus) 1 inh inhalation BID #60 ea 02/06/21 [Rx Confirmed 12/01/21] Diabetic Shoes and Custom Molded Accommodative Orthotics #1 ea 05/02/21 [Rx Confirmed 12/01/21] pilot point boot right foot #1 ea 06/24/21 [Rx Confirmed 12/01/21] ropinirole 4 mg tablet 8 mg PO BID #180 tabs 08/06/21 [Rx Confirmed 12/01/21] tramadol 100 mg tablet 100 mg PO Q6H PRN pain #60 tabs 08/06/21 [Rx Confirmed 12/01/21] New tread for [place] BAND Boot #1 ea 10/29/21 [Rx Confirmed 12/01/21] insulin detemir U-100 100 unit/mL (3 mL) subcutaneous pen (Levemir FlexTouch U- 100 Insulin) 40 unit SUBCUT BID 12/01/21 [History Confirmed 12/01/21] midodrine 5 mg tablet 5 mg PO BID PRN Blood Pressure 12/01/21 [History Confirmed 12/01/21] phenylephrine HCl 1 % nasal spray (4 Way) 1 spray intranasal BID 12/01/21 [History Confirmed 12/01/21] Discharge Plan Discharge Patient Disposition: Xfer Short-Term Hosp Condition: Stable Prescriptions: No Action fluticasone propion-salmeterol [Advair Diskus] 500-50 mcg/dose blister with device 1 inh inhalation BID Qty: 60 12RF (DME) custom molded accommodative orthotic See Rx Instructions .ROUTE .MEDSUPPLY Qty: 1 0RF Rx Instructions: As directed (DME) custom molded orthotics See Rx Instructions .ROUTE .MEDSUPPLY Qty: 1 0RF Rx Instructions: As directed JUAN[employer]O (DME) Cam boot to right See Rx Instructions .Route .MEDSUPPLY Qty: 1 0RF Rx Instructions: As directed (DME) New tread for [place] BAND Boot See Rx Instructions .Route .MEDSUPPLY Qty: 1 0RF Rx Instructions: As directed by JUAN[employer]O Jentadueto 2.5-1,000 mg tablet 1 tab PO BID Qty: 180 3RF (DME) Diabetic Shoes and Custom Molded Accommodative Orthotics See Rx Instructions .Route .MEDSUPPLY Qty: 1 0RF Rx Instructions: As directed J P & O (DME) pilot point boot right foot See Rx Instructions .Route .MEDSUPPLY Qty: 1 0RF Rx Instructions: As directed by JUAN[employer]O ropinirole 4 mg tablet 8 mg PO BID Qty: 180 3RF tramadol 100 mg tablet 100 mg PO Q6H PRN (Reason: pain) Qty: 60 5RF albuterol sulfate 90 mcg/actuation HFA aerosol inhaler 2 inh INHALATION Q4H PRN (Reason: shortness of breath or wheezing) Qty: [address] % [place],Non-Aerosol 1 spray INTRANASAL BID Levemir FlexTouch U-100 Insuln 100 unit/mL (3 mL) insulin pen 40 unit SUBCUT BID midodrine 5 mg Tablet 5 mg PO BID PRN (Reason: Blood Pressure) Discharge Orders: Transfer Out of Facility (Order); Ordered 12/02/21 Ordered By: Duane Morrison Referrals: Mian Back MD [Primary Care Provider] - Activity Restrictions/Additional Instructions: Please contact the [facility] to follow up on application for meals on wheels. Their phone number is [phone]. Their address is [address] [place] [id number]. [facility] will submit an application to the [facility] to see if you qualify for In-Home Services. The [facility] will call you within around 2week timeframe to complete an interview to assess your needs. If you do not receive a phone call within 2-3weeks, please reach out to [facility] for assistance at [phone]. 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
[2021-12-02 21:24] LABS: Glucose Point of Care 109 mg/dL (70-110)
[2021-12-02] MEDS: acetaminophen 1,000 MG/100 ML PIGGYBACK 400 MG IV (21:47)
[2021-12-03] VITALS: BP 107/59; PULSE 97; RESP 18
[2021-12-03 00:15] VITALS: BP 112/62
[2021-12-03] MEDS: sodium chloride 0.9% 1,000 ML 150 ML IV (00:22)
[2021-12-03 00:34] VITALS: RESP 21; O2SAT 91
[2021-12-03] MEDS: morphine 4 mg/mL SDV 1 mL 2 MG IVP (00:34)
[2021-12-03 00:39] VITALS: BP 104/48; PULSE 94; RESP 22; O2SAT 93
--- NOTE | 2021-12-03 01:00 | PC.NURSE ---
report called to Karlos Galindo at 12/02/2021 @ 8135. Brother Tesfaye called and updated on pt condition and flight crew status. 12/03/2021 Karlos RN [id number] nurse notified flight crew left.
== END 2021-12-03 00:58 | disposition short-term general hospital (02) | DRG 871 ==
LOC: ER 14:27 → ER IP 16:14 → ICU 23:50
PROVIDERS: Family Medicine; Surgery; Admitting Provider Internal Medicine; Emergency Provider Family Medicine; PCP Internal Medicine; Visit Provider Internal Medicine
DX: A41.9 Sepsis, unspecified organism (principal); R65.21 Severe sepsis with septic shock; K43.3 Parastomal hernia with obstruction, without gangrene; E87.2 Acidosis; N17.9 Acute kidney failure, unspecified; Z85.51 Personal history of malignant neoplasm of bladder; Z93.6 Other artificial openings of urinary tract status; Z87.891 Personal history of nicotine dependence; E10.22 Type 1 diabetes mellitus with diabetic chronic kidney disease; N18.2 Chronic kidney disease, stage 2 (mild); J44.9 Chronic obstructive pulmonary disease, unspecified; Z87.440 Personal history of urinary (tract) infections; E66.9 Obesity, unspecified; Z68.27 Body mass index [BMI] 27.0-27.9, adult; G47.33 Obstructive sleep apnea (adult) (pediatric); E86.0 Dehydration; Z79.891 Long term (current) use of opiate analgesic; I95.9 Hypotension, unspecified
CPT/HCPCS: 12345; 36415; 36416; 36592; 71045; 74018; 74176; 80048; 80051; 80053; 81001; 82330; 82533; 82550; 82805; 82962; 83605; 83735; 84100; 84443; 85025; 85610; 85730; 87077; 87086; 87186; 96365; 96366; 96367; 96372; 99291; C9113; J0743; J0744; J1170; J1644; J1815; J2250; J2270; J2405; J3370; J3475; J3490; J7030; J7040; J7050; Q9967; S0030

== ENCOUNTER → 2021-12-31 09:39 | Outpatient (BNVA) | payer MEDICARE, MEDICAID, SELFPAY | PROVIDERS: PCP Internal Medicine; Visit Provider Podiatrist Foot & Ankle Surgery | DX: E11.42 Type 2 diabetes mellitus with diabetic polyneuropathy (principal); S92.502D Displaced unspecified fracture of left lesser toe(s), subsequent encounter for fracture with routine healing; E11.610 Type 2 diabetes mellitus with diabetic neuropathic arthropathy; Z79.4 Long term (current) use of insulin; X58.XXXD Exposure to other specified factors, subsequent encounter | CPT/HCPCS: 73630; 99213; 99214 ==

== ENCOUNTER → 2022-03-04 08:50 | Outpatient (BNVA) | payer MEDICARE, MEDICAID, SELFPAY | PROVIDERS: PCP Internal Medicine; Visit Provider Podiatrist Foot & Ankle Surgery | DX: E11.42 Type 2 diabetes mellitus with diabetic polyneuropathy (principal); S92.502D Displaced unspecified fracture of left lesser toe(s), subsequent encounter for fracture with routine healing; X58.XXXD Exposure to other specified factors, subsequent encounter; Z79.4 Long term (current) use of insulin; E11.610 Type 2 diabetes mellitus with diabetic neuropathic arthropathy | CPT/HCPCS: 73630; 99214 ==

== ENCOUNTER → 2022-06-03 07:50 | Outpatient (BNVA) | payer MEDICARE, MEDICAID, SELFPAY | PROVIDERS: PCP Internal Medicine; Visit Provider Podiatrist Foot & Ankle Surgery | DX: M14.671 Charcot's joint, right ankle and foot (principal); E11.42 Type 2 diabetes mellitus with diabetic polyneuropathy; S92.502D Displaced unspecified fracture of left lesser toe(s), subsequent encounter for fracture with routine healing; X58.XXXD Exposure to other specified factors, subsequent encounter; Z79.4 Long term (current) use of insulin | CPT/HCPCS: 73630; 99214 ==

== ENCOUNTER → 2022-09-09 07:33 | Outpatient (BNVA) | payer MEDICARE, MEDICAID, SELFPAY | PROVIDERS: PCP Internal Medicine; Visit Provider Podiatrist Foot & Ankle Surgery | DX: E11.8 Type 2 diabetes mellitus with unspecified complications (principal); E11.42 Type 2 diabetes mellitus with diabetic polyneuropathy; M14.671 Charcot's joint, right ankle and foot; S92.502D Displaced unspecified fracture of left lesser toe(s), subsequent encounter for fracture with routine healing; X58.XXXD Exposure to other specified factors, subsequent encounter; Z79.4 Long term (current) use of insulin | CPT/HCPCS: 73630; 99214 ==

== ENCOUNTER 2022-09-23 14:56 | Emergency (ER) | payer MEDICARE, MEDICAID, SELFPAY ==
[2022-09-23 15:02] VITALS: BP 152/85; PULSE 95; RESP 18; TEMP 36.6; O2SAT 97; BMI 27.1
--- NOTE | 2022-09-23 15:17 | CT_ITS ---
WS: [id number] CT HEAD TECHNIQUE: Noncontrast CT of the head obtained from the skullbase to the vertex. CLINICAL INFORMATION: dizzy COMPARISON: March 13, 2018 DLP: 1171.[address] scans at [facility] use at least one of these dose optimization techniques: automated e xposure control; mA and/or kV adjustment per patient size (includes targeted exams where dose is matc hed to clinical indication); or iterative reconstruction. FINDINGS: No evidence of intracranial hemorrhage or mass effect. Ventricular system and basal cisterns are josé nt. Mild small vessel changes with mild parenchymal volume loss. Intracranial vascular calcification. No extra-axial fluid collections. No evidence of mass or mass effect. Paranasal sinuses and mastoid air cells are well aerated. .Normal visualized soft tissues. CT/CT head wo con* [id number] IMPRESSION: 1. No evidence of intracranial hemorrhage or mass effect. 2. Mild small vessel changes with mild parenchymal volume loss. 3. Intracranial vascular calcification. 4. No acute intracranial findings.
--- NOTE | 2022-09-23 15:17 | XR_ITS ---
WS: [id number] XR chest 1V portable [id number] REASON FOR EXAM: dizzy FINDINGS: The chest is unchanged compared to 12/01/2021. Mild to moderate tortuosity and ectasia of the thoracic aorta. Calcified granulomatous disease in both hemithoraces. No active pulmonary parenchymal or pleural disease. Moderate degenerative spondylosis in the mid and lower thoracic spine. XR/XR chest 1V portable [id number] IMPRESSION: No acute chest abnormality.
[2022-09-23 15:27] LABS: Basophils # 0.1 10^3/uL (0.0-0.1); Basophils % 0.8 %; Eosinophils # 0.3 10^3/uL (0.0-0.8); Eosinophils % 2.9 %; Hematocrit 43.7 % (42.0-52.0); Hemoglobin 15.1 g/dL (11.7-16.6); Lymphocytes # 2.2 10^3/uL (0.8-4.8); Lymphocytes % 23.6 %; Mean Corpuscular HGB Conc 34.6 g/dL (30.0-36.0); Mean Corpuscular Hemoglobin 29.7 pg (28.0-34.0); Mean Platelet Volume 10.3 fL (7.4-10.4); Monocytes # 0.9 10^3/uL (0.2-0.9); Monocytes % 9.9 %; Neutrophils # 5.72 10^3/uL (1.8-7.7); Neutrophils % 62.5 %; Nucleated Red Blood Cells % 0 %; Platelet Count 156 10^3/cmm (130-400); Red Blood Count 5.08 10^6/uL (4.1-5.3); Red Cell Distribution Width 13.1 % (12.1-15.1); White Blood Count 9.2 10^3/uL (4.0-10.0)
--- NOTE | 2022-09-23 15:29 | W.ED.DIZZY ---
HPI - Dizziness General: Chief Complaint: Dizziness Stated Complaint: 1 week dizzy Time Seen by Provider: 09/23/22 15:14 Source: patient Mode of arrival: ambulatory Limitations: no limitations History of Present Illness: HPI Narrative: 72-year-old male states over the last week he has had feelings of being weak and dizzy. He denies any feelings of the room spinning states he felt like he is been dehydrated and is gotten dehydrated in the past just feels weak at times and has had some falls denies any headache denies any chest pain denies any fevers no vomiting or diarrhea. Associated symptoms: Reports nausea; Denies chest pain, chills, headache(s) or vomiting Review of Systems Const: Denies: fever(s), chills, body aches or change in appetite Eyes: Denies: blurry vision or eye discomfort ENMT: Denies: throat pain or dental pain Card: Denies: chest pain Resp: Denies: dyspnea GI: Reports: nausea; Denies: abdominal pain, vomiting or diarrhea Musc: Denies: neck pain or back pain Skin/Breast: Denies: rash Neuro: Reports: dizziness; Denies: headache(s) PFSH ED PFSH: Medical History Acute renal failure CKD stage 2 due to type 1 diabetes mellitus Diabetes mellitus -insulin dependent Enterocolitis History of bladder cancer Hx of intestinal obstruction Hypotension Obesity (BMI 30.0-34.9) PETER (obstructive sleep apnea) Parastomal hernia Poorly controlled diabetes mellitus -hx of IDDM type II, uncontrolled, complicated by peripheral neuropathy and nephropathy -A1c-11.5 -Accuchecks, ISS, hypoglycemia precautions. BG well controlled with scheduled insulin -consistent carb diet as tolerated Pyelonephritis -UA indicative of infection -evidence of mild focal R pyelonephritis on CT -urine cx: Klebsiella oxytoca, sensitivity noted -blood cx: 2/2 bottles positive for klebsiella oxytoca; repeat set prelim negative -associated sepsis given tachycardia, leukocytosis, fever, pro-calcitonin elevated (1.35). Sepsis now resolved -continue to monitor vital signs; stable -minimal leukocytosis -has urostomy secondary to hx of bladder cancer; continue to monitor urine output -continue Ceftriaxone; will d/c on levaquin -off IVF as oral intake has improved Sepsis Surgical History History of cholecystectomy History of esophageal hernia repair History of shoulder surgery History of urostomy Family History Other Hypertension Social History Smoking and tobacco status: never smoked Alcohol intake: former Substance/Drug Use: never Marital status: / Current occupational status: disabled Current gender identity: Male Physical Exam Const: COMMON NORMALS: no acute distress, patient oriented x3 and healthy appearing HENMT: COMMON NORMALS: normocephalic and atraumatic HEAD & SCALP: normocephalic and atraumatic Neck/C-Spine: COMMON NORMALS: full ROM and supple Chest: COMMONS NORMALS: normal inspection of the chest and normal palpation of entire chest wall Resp: COMMON NORMALS: normal respiratory effort, No retractions, No use of accessory muscles and clear to auscultation bilaterally AUSCULTATION: clear to auscultation bilaterally Cardio: COMMON NORMALS: regular rate, regular rhythm and No murmurs present (Cardio) RATE: regular rate RHYTHM: regular rhythm GI: COMMON NORMALS: Normal to inspection, nondistended, normoactive bowel sounds present, Soft to palpation, non-tender and no masses PALPATION: Yes Soft to palpation Extremity: COMMON NORMALS: normal to inspection and full ROM Neuro: COMMON NORMALS: patient oriented x3, moves all extremities and no focal motor deficits Psych: COMMON NORMALS: mental status grossly normal, Normal thought process present and cooperative THOUGHT PROCESS: Normal thought process present Skin: COMMON NORMALS: no rashes or lesions noted and no wounds GENERAL SKIN EXAM: no rashes or lesions noted Course Vital Signs: Vital signs: Vital Signs Temperature 97.9 F 09/23/22 15:02 Pulse Rate 87 09/23/22 16:56 Respiratory Rate 16 09/23/22 16:56 Blood Pressure 130/73 09/23/22 16:56 Pulse Oximetry 97 09/23/22 16:56 Oxygen Delivery Me thod Room Air 09/23/22 15:02 MDM - Dizziness Medical Decision Making Patient presents here with dizziness been going on for weeks he states he feels dehydrated and is felt like this before when he gets dehydrated. He feels much improved after IV fluids he is able ambulate the halls without any difficulties no signs of a stroke he is stable for discharge we will prescribe him Zofran and Antivert he is to follow-up and return if worsening he understands and agrees to plan. Medical Records I reviewed the patient's medical records. Lab Data I reviewed the patient's lab results. 09/23/22 15:20 09/23/22 15:20 Radiology Impressions Chest X-Ray 09/23/22 15:17 IMPRESSION: No acute chest abnormality. Head CT 09/23/22 15:17 IMPRESSION: 1. No evidence of intracranial hemorrhage or mass effect. 2. Mild small vessel changes with mild parenchymal volume loss. 3. Intracranial vascular calcification. 4. No acute intracranial findings. Laboratory Results WBC 9.2 10^3/uL (4.0-10.0) 09/23/22 15:20 RBC 5.08 10^6/uL (4.1-5.3) 09/23/22 15:20 Hgb 15.1 g/dL (11.7-16.6) 09/23/22 15:20 Hct 43.7 % (42.0-52.0) 09/23/22 15:20 MCV 86.0 fl (80-94) 09/23/22 15:20 MCH 29.7 pg (28.0-34.0) 09/23/22 15:20 MCHC 34.6 g/dL (30.0-36.0) 09/23/22 15:20 RDW 13.1 % (12.1-15.1) 09/23/22 15:20 Plt Count 156 10^3/cmm (130-400) 09/23/22 15:20 MPV 10.3 fL (7.4-10.4) 09/23/22 15:20 Neut % (Auto) 62.5 % 09/23/22 15:20 Lymph % (Auto) 23.6 % 09/23/22 15:20 Pender % (Auto) 9.9 % 09/23/22 15:20 Eos % (Auto) 2.9 % 09/23/22 15:20 Baso % (Auto) 0.8 % 09/23/22 15:20 Neut # (Auto) 5.72 10^3/uL (1.8-7.7) 09/23/22 15:20 Lymph # (Auto) 2.2 10^3/uL (0.8-4.8) 09/23/22 15:20 Pender # (Auto) 0.9 10^3/uL (0.2-0.9) 09/23/22 15:20 Eos # (Auto) 0.3 10^3/uL (0.0-0.8) 09/23/22 15:20 Baso # (Auto) 0.1 10^3/uL (0.0-0.1) 09/23/22 15:20 Nucleated RBC % (auto) 0 % 09/23/22 15:20 Nucleated RBCs # 0.0 /100WBC 09/23/22 15:20 Sodium 135 mmol/L (136-145) L 09/23/22 15:20 Potassium 4.9 mmol/L (3.5-5.1) 09/23/22 15:20 Chloride 101 mmol/L (98-107) 09/23/22 15:20 Carbon Dioxide 24 mmol/L (22-29) 09/23/22 15:20 Anion Gap 14.9 (5-19) 09/23/22 15:20 BUN 35 mg/dL (8-23) H 09/23/22 15:20 Creatinine 1.2 mg/dL (0.7-1.2) 09/23/22 15:20 GFR Calculation Not Reportable 09/23/22 15:20 Glucose 278 mg/dL (65-115) H 09/23/22 15:20 POC Glucose 246 mg/dL (70-110) H 09/23/22 15:40 Calculated Osmolality 298 mOsm/kg (285-295) H 09/23/22 15:20 Calcium 9.5 mg/dL (8.5-10.5) 09/23/22 15:20 Total Bilirubin 0.3 mg/dL (0.15-1.2) 09/23/22 15:20 AST 30 U/L (0-40) 09/23/22 15:20 ALT 26 U/L (0-41) 09/23/22 15:20 Alkaline Phosphatase 102 U/L (40-130) 09/23/22 15:20 Total Protein 7.0 g/dL (6.6-8.7) 09/23/22 15:20 Albumin 4.0 g/dL (3.5-5.2) 09/23/22 15:20 Globulin 3.0 g/dL (1.3-4.6) 09/23/22 15:20 EKG Data EKG 1: I personally reviewed and interpreted this EKG as follows: EKG interpretation date: 09/23/22 EKG interpretation time: 15:45 Interpretation: nsr hr [address] or t wave abnormalities qrs 142 qtc 414 Discharge Plan Discharge Patient Disposition: Home Clinical Impression: Dizziness Condition: Stable Prescriptions: New ondansetron 4 mg tablet,disintegrating 4 mg PO Q6H PRN (Reason: nausea and vomiting) Qty: 14 0RF Antivert 50 mg tablet 50 mg PO BID PRN (Reason: dizziness) Qty: 20 0RF No Action fluticasone propion-salmeterol [Advair Diskus] 500-50 mcg/dose blister with device 1 inh inhalation BID Qty: 60 12RF (DME) New tread for [place] Boot See Rx Instructions .Route .MEDSUPPLY Qty: 1 0RF Rx Instructions: As directed by [facility] albuterol sulfate 90 mcg/actuation HFA aerosol inhaler 2 inh INHALATION Q4H PRN (Reason: shortness of breath or wheezing) Qty: 18 0RF azithromycin [Zithromax TRI-RUSLAN] 500 mg tablet 500 mg PO DAILY 6 Days Qty: 9 0RF ropinirole 4 mg tablet 8 mg PO BID Qty: 180 3RF Jentadueto 2.5-1,000 mg tablet 1 tab PO BID Qty: 180 3RF tramadol 100 mg tablet 100 mg PO Q6H PRN (Reason: pain) Qty: 120 5RF Levemir FlexTouch U-100 Insuln 100 unit/mL (3 mL) insulin pen 40 unit SUBCUT BID Qty: 30 3RF (DME) [place] Boot to the Right See Rx Instructions .Route .MEDSUPPLY Qty: 1 0RF Rx Instructions: As directed by [facility] [address] 1 % [place],Non-Aerosol 1 spray INTRANASAL BID midodrine 5 mg Tablet 5 mg PO BID PRN (Reason: Blood Pressure) Discharge Orders: Discharge ED (Routine); Ordered 09/23/22 Ordered By: Jim Mims Referrals: Mian Back MD [Primary Care Provider] - 1-3 days Discharge Diet: Advance as tolerated Discharge Activity: Resume usual activity Patient Instructions: Dizziness (ED) Coding Level of Care Code ED Cryptologic Technician Operator/Analyst for Osiris Ansari
[2022-09-23] MEDS: sodium chloride 0.9% 1,000 ML 999 ML IV (15:36)
[2022-09-23 15:43] LABS: Glucose Point of Care 246 mg/dL (70-110)
[2022-09-23 15:44] LABS: Alanine Aminotransferase 26 U/L (0-41); Alkaline Phosphatase 102 U/L (40-130); Blood Urea Nitrogen 35 mg/dL (8-23); Calcium 9.5 mg/dL (8.5-10.5); Carbon Dioxide 24 mmol/L (22-29); Chloride 101 mmol/L (98-107); Creatinine Clr Calc Pharmacy 65.2038; Glucose 278 mg/dL (65-115); Osmolality Calculated 298 mOsm/kg (285-295); Sodium 135 mmol/L (136-145); Total Bilirubin 0.3 mg/dL (0.15-1.2)
[2022-09-23 15:45] LABS: Anion Gap 14.9 (5-19); Aspartate Amino Transferase 30 U/L (0-40); Potassium 4.9 mmol/L (3.5-5.1)
--- NOTE | 2022-09-23 15:45 | ECG_ITS ---
[facility] Test Date: 2022-09-23 Pat Name: Cole Troncoso Department: Room: Gender: Male Citrus Fruit Colorer: : 1950 Requested By: Jim Mims Order Number: [id number] Sharri MD: Bassam Tony M.D. Measurements Intervals [place] Rate: 91 P: 0 [place]: 0 QRS: -40 QRSD: 142 T: 5 QT: 365 QTc: 450 Interpretive Statements SINUS RHYTHM LEFT AXIS DEVIATION [QRS AXIS < -30] RIGHT BUNDLE BRANCH BLOCK [120+ ms QRS DURATION, UPRIGHT V1, 40+ ms S IN I/aVL/V4/V5/V6] Compared to ECG 07/17/2020 10:51:52 Left-axis deviation now present Left anterior fascicular block no longer present Electronically Signed On 09-24-2022 12:18:26 CDT by Bassam Tony M.D. [email or web address]
[2022-09-23 15:50] VITALS: BP 188/105; PULSE 92; RESP 18; O2SAT 96
[2022-09-23] MEDS: hyDRALAzine 20 mg/mL INJ 1 mL 10 MG IVP (15:59)
[2022-09-23] MEDS: ropinirole 1 mg Tablet 4 MG PO (15:59)
--- NOTE | 2022-09-23 16:41 | PC.NURSE ---
PT AMBULATED APPROX 30FT. GAIT WNL. PHYSICIAN NOTIFIED.
[2022-09-23 16:56] VITALS: BP 130/73; PULSE 87; RESP 16; O2SAT 97
[2022-09-23 17:16] VITALS: BP 146/83; PULSE 92; RESP 16; O2SAT 99
[2022-09-23 17:17] VITALS: BP 146/83; PULSE 92; RESP 16; O2SAT 99
== END 2022-09-23 17:18 | disposition home or self-care (01) ==
PROVIDERS: Emergency Provider Emergency Medicine; PCP Internal Medicine
DX: R42 Dizziness and giddiness (principal); Z79.4 Long term (current) use of insulin; E10.22 Type 1 diabetes mellitus with diabetic chronic kidney disease; N18.2 Chronic kidney disease, stage 2 (mild); Z85.51 Personal history of malignant neoplasm of bladder
CPT/HCPCS: 36416; 70450; 71045; 80053; 82962; 85025; 93005; 96361; 96374; 99285; J0360; J7030

== ENCOUNTER → 2022-12-02 07:54 | Outpatient (BNVA) | payer MEDICARE, MEDICAID, SELFPAY | PROVIDERS: PCP Internal Medicine; Visit Provider Podiatrist Foot & Ankle Surgery | DX: E11.610 Type 2 diabetes mellitus with diabetic neuropathic arthropathy (principal); M66.862 Spontaneous rupture of other tendons, left lower leg; M79.671 Pain in right foot; M79.672 Pain in left foot; E11.42 Type 2 diabetes mellitus with diabetic polyneuropathy; Z79.4 Long term (current) use of insulin; Z46.89 Encounter for fitting and adjustment of other specified devices; M66.869 Spontaneous rupture of other tendons, unspecified lower leg | CPT/HCPCS: 73630; 97760; 99214; L4361 ==

== ENCOUNTER 2022-12-02 10:02 | Outpatient (CLI) | payer MEDICARE, MEDICAID, SELFPAY | END 2022-12-02 10:03 | disposition home or self-care (01) | LOC: SPT 10:03 | PROVIDERS: PCP Internal Medicine; Visit Provider Podiatrist Foot & Ankle Surgery | DX: Z46.89 Encounter for fitting and adjustment of other specified devices (principal); M66.869 Spontaneous rupture of other tendons, unspecified lower leg | CPT/HCPCS: 97760; 99214; L4361 ==

== ENCOUNTER 2022-12-31 07:35 | Outpatient (CLI) | payer MEDICARE, MEDICAID, SELFPAY ==
--- NOTE | 2022-12-31 08:00 | MR_ITS ---
WS: [id number] EXAMINATION: MR ankle LT wo con* [id number] ORDER DATE: 12/31/2022 7:39 AM COMPARISON: None. HISTORY: tibialis anterior rupture left CONTRAST: None. TECHNIQUE: Axial proton density fat sat, axial T1, sagittal proton density, sagittal STIR, coronal T2 fat sat, and coronal T1 sequences performed. After contrast, axial T1 fat sat, coronal T1 fat sat, and sagittal T1 fat sat were performed. FINDINGS: High-grade complete appearing tear of the tibialis anterior with fluid and edema. Retracti on to the level of the tibiotalar joint. No normal fibers visualized distally. Otherwise extensor and flexor compartment tendons are normal in appearance. Chronic appearing split t ear of the peroneal brevis. Distal Achilles is normal in appearance. Normal plantar aponeurosis. Soft tissue edema lower leg and ankle. Normal medial and lateral malleolus. Normal tibiotalar joint. Normal talus. Normal plantar aponeurosi s. IMPRESSION: 1. High-grade complete appearing tear of the tibialis anterior with fluid and edema. Retraction to t he level of the tibiotalar joint. No normal fibers visualized distally. 2. Tibialis posterior is normal in appearance. 3. Chronic split tear of the peroneal brevis. 4. Distal Achilles is normal in appearance. Tiny amount of fluid in the retrocalcaneal bursa. 5. Soft tissue edema involving the lower leg and ankle.
== END 2022-12-31 07:36 | disposition home or self-care (01) ==
LOC: RAD 07:37
PROVIDERS: PCP Internal Medicine; Visit Provider Podiatrist Foot & Ankle Surgery
DX: M66.862 Spontaneous rupture of other tendons, left lower leg (principal); S96.812A Strain of other specified muscles and tendons at ankle and foot level, left foot, initial encounter; X58.XXXA Exposure to other specified factors, initial encounter
CPT/HCPCS: 73721

== ENCOUNTER → 2023-01-01 11:37 | Outpatient (BNVA) | payer MEDICARE, MEDICAID, SELFPAY | PROVIDERS: PCP Internal Medicine; Visit Provider Podiatrist Foot & Ankle Surgery | DX: E11.42 Type 2 diabetes mellitus with diabetic polyneuropathy (principal); M66.862 Spontaneous rupture of other tendons, left lower leg; S86.212A Strain of muscle(s) and tendon(s) of anterior muscle group at lower leg level, left leg, initial encounter; X58.XXXA Exposure to other specified factors, initial encounter; Z79.4 Long term (current) use of insulin | CPT/HCPCS: 99213 ==

== ENCOUNTER 2023-01-08 06:08 | Day surgery (SDC) | payer MEDICARE, MEDICAID, SELFPAY ==
--- NOTE | 2023-01-08 | XR_ITS ---
WS: [id number] Left foot, C-arm fluoroscopy view, 01/08/2023 Clinical Data: Left tibialias tendon repair. or pic Comparison: None. Findings: Dr. Day marked a site for a tendon repair Impression: Marked of tendon repair site.
[2023-01-08 06:49] VITALS: BMI 29.5
[2023-01-08] MEDS: sodium chloride 0.9% 1,000 ML 30 ML IV (06:55)
--- NOTE | 2023-01-08 07:02 | P.ANESASSM_ITS ---
Pre-Anesthetic Assessment Height/Weight: Height 1.83 m Weight 98.883 kg Preop Diagnosis: Left tibialis anterior tendon rupture Operation Date: 01/08/23 07:55 Proposed Procedures p ?Left tibialis anterior tendon repair 02581,M66.869(Left) - Noble Day DPM Familial anesthetic complications: none Was Beta Jarad taken within 24 hours: N/A Was Clonidine taken within 24 hours: N/A Last intake: > 8hrs Social No alcohol and No tobacco Exam alert, oriented x 3, clear to auscultation bilaterally and regular rate & rhythm Airway Mallampati: Class III Dentition: false Pulmonary Sleep Apnea Chronic Renal Insufficiency Bladder cancer Metabolic Diabetes Mellitus Anesthetic Plan ASA status: 3 Anesthesia: General Risk of > 500 ml blood loss (7ml/kg in children): No Medications/Allergies Home Medications Medication Instructions Recorded Confirmed Last Taken Type fluticasone 500 mcg-salmeterol 50 1 inh inhalation BID #60 ea 02/06/21 01/07/23 03/29/21 Rx mcg/dose blistr powdr for inhalation (Advair Diskus) New tread for [place] Boot #1 ea 10/29/21 01/01/23 Unknown Rx midodrine 5 mg tablet 5 mg PO BID PRN Blood Pressure 12/01/21 01/07/23 Unknown History phenylephrine HCl 1 % nasal spray 1 spray intranasal BID 12/01/21 01/07/23 Unknown History (4 Way) albuterol sulfate 90 mcg/actuation 2 inh inhalation Q4H PRN shortness 12/18/21 01/07/23 1 Day Ago Rx aerosol inhaler of breath or wheezing #18 grams ~01/06/23 ropinirole 4 mg tablet 8 mg PO BID #180 tabs 02/02/22 01/07/23 01/07/23 Rx insulin detemir U-100 100 unit/mL 40 unit (0.4 mL) SUBCUT BID #30 mL 02/03/22 01/07/23 01/07/23 Rx (3 mL) subcutaneous pen (Levemir FlexTouch U-100 Insulin) linagliptin 2.5 mg-metformin 1,000 1 tab PO BID #180 tabs 02/03/22 01/07/23 01/07/23 Rx mg tablet (Jentadueto) tramadol 100 mg tablet 100 mg PO Q6H PRN pain #120 tabs 02/03/22 01/07/23 Unknown Rx [place] Boot to the Right #1 ea 07/10/22 01/01/23 Unknown Rx meclizine 50 mg tablet (Antivert) 50 mg PO BID PRN dizziness #20 tabs 09/23/22 01/01/23 Unknown Rx CAM Boot #1 ea 12/02/22 01/01/23 Unknown Rx Wheel chair with elevated foot rest #1 ea 01/01/23 01/01/23 Unknown Rx Allergies Allergy/AdvReac Type Severity Reaction Status Date / Time Penicillins Allergy Unknown Verified 01/01/23 11:52 Current Medications Generic Name Dose Route Start Last Admin Trade Name Freq PRN Reason Stop Dose Admin Sodium Chloride 1,000 mls @ 30 mls/hr 01/08/23 06:45 01/08/23 06:55 Sodium Chloride 0.9% IV 01/09/23 06:44 30 mls/hr .Q24H RAFAELA Administration PFSH Anesthesia Medical History Acute renal failure CKD stage 2 due to type 1 diabetes mellitus Diabetes mellitus -insulin dependent Enterocolitis History of bladder cancer Hx of intestinal obstruction Hypotension Obesity (BMI 30.0-34.9) PETER (obstructive sleep apnea) Parastomal hernia Poorly controlled diabetes mellitus -hx of IDDM type II, uncontrolled, complicated by peripheral neuropathy and nephropathy -A1c-11.5 -Accuchecks, ISS, hypoglycemia precautions. BG well controlled with scheduled insulin -consistent carb diet as tolerated Pyelonephritis -UA indicative of infection -evidence of mild focal R pyelonephritis on CT -urine cx: Klebsiella oxytoca, sensitivity noted -blood cx: 2/2 bottles positive for klebsiella oxytoca; repeat set prelim negative -associated sepsis given tachycardia, leukocytosis, fever, pro-calcitonin elevated (1.35). Sepsis now resolved -continue to monitor vital signs; stable -minimal leukocytosis -has urostomy secondary to hx of bladder cancer; continue to monitor urine output -continue Ceftriaxone; will d/c on levaquin -off IVF as oral intake has improved Sepsis Surgical History History of cholecystectomy History of esophageal hernia repair History of shoulder surgery History of urostomy Family History Other Hypertension Social History Smoking and tobacco/nicotine status: never used tobacco/nicotine Alcohol intake: former Substance/Drug Use: never Marital status: / Current occupational status: disabled Current gender identity: Male Data Anesthesia Cardiac Studies: No Data to Display
[2023-01-08 07:07] VITALS: BP 124/78; PULSE 98; RESP 18; TEMP 36.4; O2SAT 96
[2023-01-08 07:15] LABS: Glucose Point of Care 300 mg/dL (70-110)
--- NOTE | 2023-01-08 07:37 | P.HPUD_ITS ---
Surgery/Procedure H&P Update DATE OF PROCEDURE: January 08, 2023 DATE H&P PERFORMED: 01/01/23 H&P UPDATE INFORMATION: I have reviewed H&P completed within last 30 days, I have examined patient prior to procedure, No changes to prior documentation and H&P is in [facility] EMR on date indicated PREOP DIAGNOSIS: Left tibialis anterior tendon rupture PLANNED PROCEDURE: Operation Date: 01/08/23 07:55 Proposed Procedures p ?Left tibialis anterior tendon repair 15070,M66.869(Left) - Noble Day DPM
--- NOTE | 2023-01-08 07:37 | PM.OP ---
Operative Report Date of procedure: January 08, 2023 Pre-op diagnosis: Tibialis anterior tendon rupture Post-op diagnosis: Same Post-op findings: Left tibialis anterior tendon rupture with retraction Procedure done: Left tibialis anterior tendon repair. CPT code 68086 Implants: Decisive BI provided tibialis anterior tendon graft product code [id number] expiration 07/24/2027 Intraline 5.5 mm Patricia bone anchor with #2 Force Fiber 2-0 Vicryl 3-0 Vicryl Can blayne Specimens removed/disposition: None Pathology: None Surgeon: Noble Day DPM Lasting Machine Operator Hand Method: Harpreet Estimated blood loss: 5 66 IV fluids: 0 Urine output: None Complications: None Findings: Tibialis anterior tendon rupture, left with retraction. Brief History: Spontaneous rupture left tibialis anterior tendon.? Confirmed on MRI taken 12/31/2022 shows high-grade complete tear with associated fluid and edema of the tibialis anterior tendon at the level of the tibiotalar joint.? Secondary finding not contributing to patient's symptoms are a chronic split tear of the left peroneal brevis and mild soft tissue edema involving the lower leg and ankle. Patient unable to dorsiflex his left foot due to spontaneous rupture of left tibialis anterior tendon, confirmed complete rupture on MRI performed 12/31/2022.? Patient wishing to discuss surgical repair and recovery.? Advised direct repair with possible tendon graft.? I reviewed at length with the patient, the risks, potential complications, benefits, alternatives, expectations, and typical outcomes associated with the surgery. The risks and potential complications were explained in detail, including but not limited to infection, wound dehiscence or soft tissue complications, bleeding and hematoma, chronic edema, neuritis or nerve damage producing numbness or chronic pain, CRPS, failure to relieve pain or worsening pain, thick / painful / unsightly scar, limited motion / stiffness, malposition, delayed union, malunion, or nonunion, fracture, reaction to implants, anesthetic complications, venous thromboembolism, and deformity recurrence.? I discussed the notion of no regrets with the patient as it pertains to complications and outcomes. The patient seemed to understand the nature of the proposed care and required convalescence. They asked appropriate questions, answered to their satisfaction. They are aware no guarantees can be made as to a satisfactory outcome and they understand there may be other possible unforeseen complications or outcomes not listed here that will be treated accordingly if they arise. There were no written or implied guarantees given to the patient. They gave informed consent to proceed. Procedure: Under mild sedation the patient was brought to the operating room and remained on the gurney in supine position. A timeout was performed. Anesthesia was then administered by the anesthesia service. Local anesthesia was injected by myself consisting of 30 cc of Marcaine and 10 cc of Exparel to the left anterior ankle and foot at the operative site. Well-padded pneumatic tourniquet was applied to the left high calf. The left lower extremity was scrubbed, prepped and draped utilizing normal aseptic technique. Left lower extremity was exanguinated and tourniquet was inflated to 250 mmHg. Attention was directed to the left anterior ankle where a palpable dell was appreciated at the level of the ankle from suspected tibialis anterior tendon rupture this was confirmed with MRI. Oblique incision directly over the tibialis anterior tendon course starting proximal to the ankle and coursing down to insertion was performed through skin with dissection carried down through subcutaneous tissue to the layer of tendon sheath utilizing blunt and sharp technique. Care was taken to retract and preserve neurovascular and tendinous structures. All bleeders were ligated and cauterized as necessary. Tendon sheath was incised and the tibialis anterior was appreciated to have a complete rupture with thickening and devitalized degenerative appearing tendon which was debrided sharply to healthier. Tendon proximally, very small stump appreciated distally with a gap of approximately 3 cm. Tendon was wrapped with a tibialis anterior tendon graft and a Patricia Enterline 5.5 millimeter screw with #2 Force Fiber was inserted into the medial aspect of the medial cuneiform and tendon with the foot dorsiflexed at neutral at the level ankle was fixated and secured utilizing #2 FiberWire. The incision was irrigated with saline and the tendon sheath was closed utilizing 3-0 Vicryl, subcutaneous tissue closed with 3-0 Vicryl and skin with skin blayne. The incision was dressed with Adaptic, sterile 4 x 4's, Kerlix and Connor wrap followed by application of a cam boot to the left lower extremity maintaining neutral position of the ankle. Tourniquet was deflated and a prompt hyperemic response was noted to the distal digits of the left foot. Patient tolerated the procedure well and transferred to the PACU with vital signs stable and vascular status intact. Following a period of postoperative monitoring he will be discharged home is to remain strict nonweightbearing, is to elevate his left foot while resting, was given at home care instructions, follow-up and my cell phone number to contact with postoperative questions or concerns
[2023-01-08 07:46] LABS: Anion Gap 14.6 (5-19); Blood Urea Nitrogen 39 mg/dL (8-23); Calcium 9.3 mg/dL (8.5-10.5); Carbon Dioxide 25 mmol/L (22-29); Chloride 102 mmol/L (98-107); Glucose 287 mg/dL (65-115); Osmolality Calculated 304 mOsm/kg (285-295); Potassium 4.6 mmol/L (3.5-5.1); Sodium 137 mmol/L (136-145)
[2023-01-08] MEDS: insulin regular-human 100 units/1 mL 10 UNIT IVP (07:50)
--- NOTE | 2023-01-08 08:22 | PC.NURSE ---
Blood sugar ordered to be checked by anesthesia. anesthesia aware of result
[2023-01-08 08:27] LABS: Glucose Point of Care 258 mg/dL (70-110)
[2023-01-08] MEDS: BUPivacaine 0.5% INJ 30 mL INJECTION (08:28)
[2023-01-08] MEDS: BUPivacaine liposome 13.3 mg/mL SDV 10 mL 133 MG INJECTION (08:29)
[2023-01-08 09:25] VITALS: BP 117/75; PULSE 86; RESP 16; TEMP 36.1; O2SAT 96
[2023-01-08 09:30] VITALS: BP 115/66; PULSE 82; RESP 18; O2SAT 94
--- NOTE | 2023-01-08 09:33 | PC.NURSE ---
BGL is 241 at 0990
--- NOTE | 2023-01-08 09:35 | ANE.PACU2 ---
Inpatient post-anesthesia follow up: Airway intact: Yes Vital signs: Temperature 97.4 F Pulse Rate 81 Respiratory Rate 18 Blood Pressure 121/71 Pulse Oximetry 95 Oxygen Delivery Me thod Room Air Oxygen Flow Rate Fraction of Inspir ed Oxygen Hydration adequate: Yes Nausea and vomiting: No Pain level: 1 Mental status: Baseline
[2023-01-08 09:36] VITALS: BP 123/71; PULSE 83; RESP 17; O2SAT 93
[2023-01-08 09:37] LABS: Glucose Point of Care 241 mg/dL (70-110)
[2023-01-08 09:40] VITALS: BP 116/73; PULSE 83; RESP 18; TEMP 36.3; O2SAT 97
[2023-01-08] MEDS: HYDROcodone-acetaminophen 5-325 mg Tablet 1 TAB PO (10:04)
[2023-01-08 10:06] VITALS: BP 121/71; PULSE 81; RESP 18; O2SAT 95
== END 2023-01-08 10:30 | disposition home or self-care (01) ==
PROVIDERS: Anesthesiology; PCP Internal Medicine; Visit Provider Podiatrist Foot & Ankle Surgery
PROC: (CPT 28208; principal; 2023-01-08 07:45)
DX: S96.112A Strain of muscle and tendon of long extensor muscle of toe at ankle and foot level, left foot, initial encounter (principal); X58.XXXA Exposure to other specified factors, initial encounter; G47.30 Sleep apnea, unspecified; Z85.51 Personal history of malignant neoplasm of bladder; Z79.4 Long term (current) use of insulin; E10.22 Type 1 diabetes mellitus with diabetic chronic kidney disease; N18.2 Chronic kidney disease, stage 2 (mild)
CPT/HCPCS: 28208; 36416; 73620; 76000; 80048; 82962; C1713; C1762; C9290; J0330; J1100; J1815; J2405; J2704; J3010; J3490; J7030

== ENCOUNTER 2023-01-15 20:59 | Emergency (ER) | payer MEDICARE, MEDICAID, SELFPAY ==
[2023-01-15 21:05] VITALS: BP 106/55; PULSE 90; RESP 20; TEMP 37.2; O2SAT 94; BMI 33.9
--- NOTE | 2023-01-15 21:11 | ECG_ITS ---
[facility] Test Date: 2023-01-15 Pat Name: Cole Troncoso Department: Room: Gender: Male Record Producer: : 1950 Requested By: Koby Herman Order Number: [id number] Sharri MD: Rama Gilbert M.D. Measurements Intervals [place] Rate: 90 P: 20 [place]: 145 QRS: -10 QRSD: 142 T: 40 QT: 375 QTc: 460 Interpretive Statements SINUS RHYTHM RIGHT BUNDLE BRANCH BLOCK [120+ ms QRS DURATION, UPRIGHT V1, 40+ ms S IN I/aVL/V4/V5/V6] Compared to ECG 09/23/2022 15:45:56 Left-axis deviation no longer present Electronically Signed On 01-15-2023 22:23:44 CDT by Rama Gilbert M.D. [email or web address]
--- NOTE | 2023-01-15 21:14 | XRR_ITS ---
PROCEDURE INFORMATION: Exam: XR Chest Exam date and time: 01/15/2023 9:30 PM Age: 72 years old Clinical indication: Shortness of breath; Patient HX: SOB; Weakness; Additional info: SOB; Weakness TECHNIQUE: Imaging protocol: Radiologic exam of the chest. Views: 1 view. COMPARISON: CR XR chest 1V portable [id number] 09/23/2022 3:21 PM FINDINGS: Lungs: No consolidation, mass, or pulmonary edema. Pleural spaces: Unremarkable. No pleural effusion. No pneumothorax. Heart/Mediastinum: Cardiomediastinal silhouette is stable and unremarkable. Bones/joints: No acute osseous abnormality. XR/XR chest 1V portable [id number] IMPRESSION: No acute findings.
[2023-01-15 21:30] VITALS: BP 140/75; PULSE 89; RESP 28; O2SAT 88
[2023-01-15 21:30] LABS: Basophils # 0.1 10^3/uL (0.0-0.1); Basophils % 0.4 %; Eosinophils # 0.1 10^3/uL (0.0-0.8); Eosinophils % 0.6 %; Hematocrit 44.2 % (37-53); Lymphocytes # 1.4 10^3/uL (0.8-4.8); Mean Corpuscular HGB Conc 34.4 g/dL (30-55); Mean Corpuscular Hemoglobin 30.2 pg (27-33); Mean Corpuscular Volume 87.7 fl (82-101); Mean Platelet Volume 10.4 fL (7.4-10.4); Monocytes # 1.5 10^3/uL (0.2-0.9); Monocytes % 11.6 %; Neutrophils # 9.47 10^3/uL (1.8-7.7); Neutrophils % 75.8 %; Nucleated Red Blood Cells % 0 %; Platelet Count 182 10^3/cmm (157-399); Red Blood Count 5.04 10^6/uL (3.85-5.65); Red Cell Distribution Width 12.3 % (12.1-15.1); White Blood Count 12.48 10^3/uL (3.29-11.43)
[2023-01-15 21:38] LABS: Ketone (Acetest) Serum Negative (Negative)
[2023-01-15 21:44] LABS: Alanine Aminotransferase 13 U/L (0-41); Albumin Level 3.9 g/dL (3.5-5.2); Alkaline Phosphatase 96 U/L (40-130); Anion Gap 13.5 (5-19); Aspartate Amino Transferase 8 U/L (0-40); Blood Urea Nitrogen 27 mg/dL (8-23); C Reactive Protein 79.6 mg/L (0.0-4.9); Calcium 9.5 mg/dL (8.5-10.5); Carbon Dioxide 28 mmol/L (22-29); Chloride 93 mmol/L (98-107); Globulin 3.5 g/dL (1.3-4.6); Glucose 435 mg/dL (65-115); Magnesium 1.6 mg/dL (1.7-2.3); Osmolality Calculated 294 mOsm/kg (285-295); Potassium 4.5 mmol/L (3.5-5.1); Sodium 130 mmol/L (136-145); Total Bilirubin 0.4 mg/dL (0.15-1.2); Total Protein 7.4 g/dL (6.6-8.7)
--- NOTE | 2023-01-15 21:59 | ED_ITS ---
HPI - Weakness General: Chief complaint: Weakness Stated complaint: WEAKNESS Time Seen by Provider: 01/15/23 21:10 Source: patient History of Present Illness: 72-year-old male with a history of recent surgery to his left foot. He is diabetic. Who presents with generalized weakness. He denies significant shortness of breath, cough, fever. He does states that his blood sugar was high at home. He has a urethrostomy as well. No nausea vomiting or diarrhea. MD Complaint: generalized weakness Associated symptoms: Denies chest pain, fever(s), nausea or vomiting Review of Systems Const: Denies: fever(s) Eyes: Denies: change in vision ENMT: Denies: throat pain Card: Denies: chest pain Resp: Denies: dyspnea, productive cough or non-productive cough GI: Denies: abdominal pain, nausea, vomiting or diarrhea Skin/Breast: Denies: rash PFSH ED PFSH: Medical History Acute renal failure CKD stage 2 due to type 1 diabetes mellitus Diabetes mellitus -insulin dependent Enterocolitis History of bladder cancer Hx of intestinal obstruction Hypotension Obesity (BMI 30.0-34.9) PETER (obstructive sleep apnea) Parastomal hernia Poorly controlled diabetes mellitus -hx of IDDM type II, uncontrolled, complicated by peripheral neuropathy and nephropathy -A1c-11.5 -Accuchecks, ISS, hypoglycemia precautions. BG well controlled with scheduled insulin -consistent carb diet as tolerated Pyelonephritis -UA indicative of infection -evidence of mild focal R pyelonephritis on CT -urine cx: Klebsiella oxytoca, sensitivity noted -blood cx: 2/2 bottles positive for klebsiella oxytoca; repeat set prelim negative -associated sepsis given tachycardia, leukocytosis, fever, pro-calcitonin elevated (1.35). Sepsis now resolved -continue to monitor vital signs; stable -minimal leukocytosis -has urostomy secondary to hx of bladder cancer; continue to monitor urine output -continue Ceftriaxone; will d/c on levaquin -off IVF as oral intake has improved Sepsis Surgical History History of cholecystectomy History of esophageal hernia repair History of shoulder surgery History of urostomy Family History Other Hypertension Social History Smoking and tobacco/nicotine status: never used tobacco/nicotine Alcohol intake: former Substance/Drug Use: never Marital status: / Current occupational status: disabled Current gender identity: Male Physical Exam Const: COMMON NORMALS: no acute distress GENERAL APPEARANCE: cooperative HENMT: COMMON NORMALS: normocephalic, atraumatic and Normal external nose present HEAD & SCALP: normocephalic and atraumatic FACE & SINUS: normal facial exam and face symmetric NOSE: Normal external nose present Eye: COMMON NORMALS: Equal, round and reactive pupils present and EOMs intact bilaterally PUPIL: Yes Equal, round and reactive pupils present Neck/C-Spine: GENERAL: Yes trachea midline Chest: CHEST: Yes Symmetrical chest wall rise Resp: COMMON NORMALS: normal respiratory effort, No retractions, No use of ac cessory muscles and clear to auscultation bilaterally AUSCULTATION: clear to auscultation bilaterally Cardio: COMMON NORMALS: regular rate and regular rhythm RATE: regular rate RHYTHM: regular rhythm GI: COMMON NORMALS: Normal to inspection, nondistended, normoactive bowel sounds present Extremity: COMMON NORMALS: no pedal edema Neuro: KHADIJAH COMA SCALE: document GCS findings Khadijah coma scale eye opening: Spontaneous Morgan coma scale verbal response: Orientated Morgan coma scale motor response: Obey commands Khadijah coma scale total score: 15 SENSORY EXAM: Yes extremities (intact) Psych: COMMON NORMALS: speech normal SPEECH: Yes normal speech Skin: COMMON NORMALS: no rashes or lesions noted GENERAL SKIN EXAM: no rashes or lesions noted Course Vital Signs: Vital signs: Vital Signs Temperature 99 F 01/15/23 21:05 Pulse Rate 80 01/16/23 02:44 Respiratory Rate 15 01/16/23 02:44 Blood Pressure 137/77 01/16/23 02:44 Pulse Oximetry 96 01/16/23 02:44 Oxygen Delivery Me thod Room Air 01/15/23 21:30 MDM - Weakness Medical Decision Making Mr. Brito blood sugar began to came down after IV fluid and IV insulin. He has not had either dose of his Lantus today. He takes 70 units in the morning and night. He is given 70 units of Lantus this evening. He was encouraged to take his insulin appropriately, especially due to his recent surgery on the left foot. He has a urinary tract infection which will be covered with antibiotics. Other laboratory is not terribly remarkable. He will return for any worsening symptoms. Lab Data 01/15/23 21:11 01/15/23 21:11 Radiology Impressions Chest X-Ray 01/15/23 21:14 IMPRESSION: No acute findings. Laboratory Results WBC 12.48 10^3/uL (3.29-11.43) H 01/15/23 21:11 RBC 5.04 10^6/uL (3.85-5.65) 01/15/23 21:11 Hgb 15.20 g/dL (11.27-16.99) 01/15/23 21:11 Hct 44.2 % (37-53) 01/15/23 21:11 MCV 87.7 fl (82-101) 01/15/23 21:11 MCH 30.2 pg (27-33) 01/15/23 21:11 MCHC 34.4 g/dL (30-55) 01/15/23 21:11 RDW 12.3 % (12.1-15.1) 01/15/23 21:11 Plt Count 182 10^3/cmm (157-399) 01/15/23 21:11 MPV 10.4 fL (7.4-10.4) 01/15/23 21:11 Neut % (Auto) 75.8 % 01/15/23 21:11 Lymph % (Auto) 11.0 % 01/15/23 21:11 [place] % (Auto) 11.6 % 01/15/23 21:11 Eos % (Auto) 0.6 % 01/15/23 21:11 Baso % (Auto) 0.4 % 01/15/23 21:11 Neut # (Auto) 9.47 10^3/uL (1.8-7.7) H 01/15/23 21:11 Lymph # (Auto) 1.4 10^3/uL (0.8-4.8) 01/15/23 21:11 [place] # (Auto) 1.5 10^3/uL (0.2-0.9) H 01/15/23 21:11 Eos # (Auto) 0.1 10^3/uL (0.0-0.8) 10/27/23 21:11 Baso # (Auto) 0.1 10^3/uL (0.0-0.1) 01/15/23 21:11 Nucleated RBC % (auto) 0 % 01/15/23 21:11 Nucleated RBCs # 0.0 /100WBC 01/15/23 21:11 Sodium 130 mmol/L (136-145) L 01/15/23 21:11 Potassium 4.5 mmol/L (3.5-5.1) 01/15/23 21:11 Chloride 93 mmol/L (98-107) L 01/15/23 21:11 Carbon Dioxide 28 mmol/L (22-29) 01/15/23 21:11 Anion Gap 13.5 (5-19) 01/15/23 21:11 BUN 27 mg/dL (8-23) H 01/15/23 21:11 Creatinine 1.1 mg/dL (0.7-1.2) 01/15/23 21:11 GFR Calculation Not Reportable 01/15/23 21:11 Glucose 435 mg/dL (65-115) H 01/15/23 21:11 POC Glucose 304 mg/dL (70-110) H 01/16/23 01:47 Calculated Osmolality 294 mOsm/kg (285-295) 01/15/23 21:11 Calcium 9.5 mg/dL (8.5-10.5) 01/15/23 21:11 Magnesium 1.6 mg/dL (1.7-2.3) L 01/15/23 21:11 Total Bilirubin 0.4 mg/dL (0.15-1.2) 01/15/23 21:11 AST 8 U/L (0-40) 01/15/23 21:11 ALT 13 U/L (0-41) 01/15/23 21:11 Alkaline Phosphatase 96 U/L (40-130) 01/15/23 21:11 C-Reactive Protein 79.6 mg/L (0.0-4.9) H 01/15/23 21:11 Total Protein 7.4 g/dL (6.6-8.7) 01/15/23 21:11 Albumin 3.9 g/dL (3.5-5.2) 01/15/23 21:11 Globulin 3.5 g/dL (1.3-4.6) 01/15/23 21:11 Urine Color Yellow (Yellow) 01/16/23 00:43 Urine Appearance Hazy (CLEAR) A 01/16/23 00:43 Urine pH 5 (5-7) 01/16/23 00:43 Ur Specific [place] 1.007 (1.005-1.030) 01/16/23 00:43 Urine Protein 1+ (Negative) H 01/16/23 00:43 Urine Glucose (UA) 2+ (Normal) H 01/16/23 00:43 Urine Ketones 1+ (Negative) H 01/16/23 00:43 Urine Blood 2+ (Negative) H 01/16/23 00:43 Urine Nitrate Negative (Negative) 01/16/23 00:43 Urine Bilirubin Neg (Negative) 01/16/23 00:43 Urine Urobilinogen Neg mg/dL (Negative) 01/16/23 00:43 Ur Leukocyte Esterase 2+ (Negative) H 01/16/23 00:43 Urine RBC 0-4 /hpf (0-2) H 01/16/23 00:43 Urine WBC 5-10 /hpf (0-5) H 01/16/23 00:43 Ur Squamous Epith Cells Rare /hpf (0-5) 01/16/23 00:43 Amorphous Sediment 3+ /hpf 01/16/23 00:43 Urine Bacteria 3+ /hpf (NONE) H 01/16/23 00:43 Serum Ketones Negative (Negative) 01/15/23 21:11 All radiology interpretation(s) finalized by discharge Discharge Plan Discharge Patient Disposition: Home Clinical Impression: Acute UTI, Hyperglycemia Condition: Stable Prescriptions: New cefdinir 300 mg capsule 300 mg PO BID Qty: 14 0RF No Action fluticasone propion-salmeterol [Advair Diskus] 500-50 mcg/dose blister with device 1 inh inhalation BID Qty: 60 12RF (DME) Wheel chair with elevated foot rest See Rx Instructions .Route .MEDSUPPLY Qty: 1 0RF Rx Instructions: As directed by HOME ([facility] [place] Shane Walker See Rx Instructions .Route .MEDSUPPLY Qty: 1 0RF Rx Instructions: As directed by [facility] ([facility] [place]) IRVIN Walker See Rx Instructions .Route .MEDSUPPLY Qty: 1 0RF Rx Instructions: As directed albuterol sulfate 90 mcg/actuation HFA aerosol inhaler 2 inh INHALATION Q4H PRN (Reason: shortness of breath or wheezing) Qty: 18 0RF ropinirole 4 mg tablet 8 mg PO BID Qty: 180 3RF Jentadueto 2.5-1,000 mg tablet 1 tab PO BID Qty: 180 3RF tramadol 100 mg tablet 100 mg PO Q6H PRN (Reason: pain) Qty: 120 5RF Levemir FlexTouch U100 Insulin 100 unit/mL (3 mL) insulin pen 40 unit SUBCUT BID Qty: 30 3RF (DME) [place] Boot to the Right See Rx Instructions .Route .MEDSUPPLY Qty: 1 0RF Rx Instructions: As directed by [facility] [address] % [place],Non-Aerosol 1 spray INTRANASAL BID midodrine 5 mg Tablet 5 mg PO BID PRN (Reason: Blood Pressure) Discharge Orders: Discharge ED (Routine); Ordered 01/16/23 Ordered By: Koby Chaney Referrals: Mian Back MD [Primary Care Provider] - 1-3 days Patient Instructions: Urinary Tract Infection in Men (ED), Diabetic Hyperglycemia (ED), Opioid Safety, Pain Management Activity Restrictions/Additional Instructions: Monitor for fever. Antibiotics as directed. Continue your Levemir insulin 70 units twice daily as instructed by your doctor. This should keep your sugar down along with the antibiotics. Return for any problems. See your doctor next week. Coding Level of Care Code ED Sexton Helper for Osiris Ansari
[2023-01-15 22:00] VITALS: BP 147/78; PULSE 87; RESP 27; O2SAT 97
[2023-01-15 22:03] LABS: Glucose Point of Care 466 mg/dL (70-110)
[2023-01-15] MEDS: insulin regular-human 100 units/1 mL 13 UNIT IVP (22:26)
[2023-01-15 22:30] VITALS: BP 142/75; PULSE 87; RESP 25; O2SAT 95
[2023-01-15 23:00] VITALS: BP 133/70; PULSE 94; RESP 20; O2SAT 97
[2023-01-15 23:23] LABS: Glucose Point of Care 360 mg/dL (70-110)
[2023-01-15 23:30] VITALS: BP 115/71; PULSE 86; RESP 20; O2SAT 97
[2023-01-16] VITALS: BP 109/64; PULSE 75; RESP 23; O2SAT 98
[2023-01-16 00:30] VITALS: BP 131/68; PULSE 72; RESP 24; O2SAT 99
[2023-01-16 01:00] VITALS: BP 157/93; PULSE 82; RESP 23; O2SAT 98
[2023-01-16 01:01] LABS: Add Urine Culture? Yes; Add Urine Microscopic? YES; Amorphous Sediment Urine 3+ /hpf; Bacteria Urine 3+ /hpf; Bilirubin Urine Neg (Negative); Blood Urine 2+ (Negative); Glucose Urine UA 2+ (Normal); Ketones Urine 1+ (Negative); Leukocyte Esterase Urine 2+ (Negative); Nitrate Urine Negative (Negative); Protein Urine 1+ (Negative); RBC Urine 0-4 /hpf (0-2); Specific Gravity, Urine 1.007 (1.005-1.030); Squamous Epithelial Cell Urine RARE /hpf (0-5); Urine Appearance Hazy (CLEAR); Urine Color Yellow (Yellow); Urobilinogen Urine Neg (Negative); pH Urine 5 (5-7)
[2023-01-16 01:30] VITALS: BP 153/93; PULSE 79; RESP 13; O2SAT 99
[2023-01-16] MEDS: cefTRIAXone 1,000 MG in sodium chloride 0.9% (plus) 50 ML 100 MG IV (01:46)
[2023-01-16] MEDS: insulin glargine 100 units/1 mL 70 UNIT SUBCUT (01:49)
[2023-01-16 01:52] LABS: Glucose Point of Care 304 mg/dL (70-110)
[2023-01-16 02:00] VITALS: BP 112/72; PULSE 84; RESP 10; O2SAT 98
[2023-01-16 02:44] VITALS: BP 137/77; PULSE 80; RESP 15; O2SAT 96
[2023-01-17 12:41] LABS: Glucose Point of Care 328 mg/dL (70-110)
== END 2023-01-16 02:46 | disposition home or self-care (01) ==
PROVIDERS: Emergency Provider Emergency Medicine; PCP Internal Medicine
DX: N39.0 Urinary tract infection, site not specified (principal); E10.65 Type 1 diabetes mellitus with hyperglycemia; Z79.4 Long term (current) use of insulin; E10.22 Type 1 diabetes mellitus with diabetic chronic kidney disease; N18.2 Chronic kidney disease, stage 2 (mild); Z85.51 Personal history of malignant neoplasm of bladder
CPT/HCPCS: 36416; 71045; 80053; 81001; 82009; 82962; 83735; 85025; 86140; 87086; 93005; 96365; 96372; 96375; 99285; J0696; J1815

== ENCOUNTER → 2023-01-21 14:03 | Outpatient (BNVA) | payer MEDICARE, MEDICAID, SELFPAY | PROVIDERS: PCP Internal Medicine; Visit Provider Podiatrist Foot & Ankle Surgery | DX: E11.42 Type 2 diabetes mellitus with diabetic polyneuropathy (principal); M66.862 Spontaneous rupture of other tendons, left lower leg; Z79.4 Long term (current) use of insulin | CPT/HCPCS: 99024 ==

== ENCOUNTER → 2023-02-18 13:23 | Outpatient (BNVA) | payer MEDICARE, MEDICAID, SELFPAY | PROVIDERS: PCP Internal Medicine; Visit Provider Podiatrist Foot & Ankle Surgery | DX: E11.42 Type 2 diabetes mellitus with diabetic polyneuropathy (principal); M66.862 Spontaneous rupture of other tendons, left lower leg; Z79.4 Long term (current) use of insulin | CPT/HCPCS: 99024 ==

== ENCOUNTER → 2023-03-04 13:02 | Outpatient (BNVA) | payer MEDICARE, MEDICAID, SELFPAY | PROVIDERS: PCP Internal Medicine; Visit Provider Podiatrist Foot & Ankle Surgery | DX: E11.42 Type 2 diabetes mellitus with diabetic polyneuropathy (principal); M66.862 Spontaneous rupture of other tendons, left lower leg; Z79.4 Long term (current) use of insulin | CPT/HCPCS: 99024 ==

== ENCOUNTER 2023-03-10 08:58 | Outpatient (CLI) | payer MEDICARE, MEDICAID, SELFPAY ==
--- NOTE | 2023-03-10 09:04 | MR_ITS ---
WS: [id number] MRI RIGHT SHOULDER HISTORY: PAIN IN R SHOULDER COMPARISON: None available. TECHNIQUE: Multiplanar sequences of the shoulder joint are submitted. Quality this examination is significantly compromised by motion. There is an anchor present in the hu meral head from prior rotator cuff repair. Severe AC joint arthritis with soft tissue and osteophyte encroachment upon the supraspinatus. Small amount of fluid along the AC ligament and in the subdeltoid bursa. Biceps tendon is not identified in the bicipital groove. Humeral head is markedly high riding abuttin g the undersurface of the acromion. Supraspinatus tendon is torn and retracted to the glenoid. Very small caliber subscapularis tendon wi th tendinopathy. Narrowing of the coracohumeral interval. The subscapularis tendon does appear to be in tact. Increased T2 signal throughout the infraspinatus muscle and tendon. There is thickening of t he tendon and loss of the normal morphology of the tendon distally suggesting high-grade tear. Loss of the normal cortex of the humeral head. Narrowing of the glenohumeral joint. Fraying and intra substance degeneration of the labrum. IMPRESSION: 1. Quality of this examination is compromised by motion artifact. 2. Severe AC joint arthritis with encroachment upon the supraspinatus muscle and tendon. 3. Full-thickness tear supraspinatus tendon with retraction to the glenoid. 4. High riding humeral head abutting the acromion. 5. Dislocation or torn biceps tendon. Biceps tendon not identified in the bicipital groove. 6. Small caliber but intact subscapularis tendon. 7. High-grade tear distal infraspinatus tendon with marked tendinopathy. 8. Marked narrowing of the glenohumeral joint.
== END 2023-03-10 08:59 | disposition home or self-care (01) ==
LOC: RAD 08:59
PROVIDERS: PCP Internal Medicine; Visit Provider Internal Medicine
DX: M75.121 Complete rotator cuff tear or rupture of right shoulder, not specified as traumatic (principal); M19.011 Primary osteoarthritis, right shoulder; R93.7 Abnormal findings on diagnostic imaging of other parts of musculoskeletal system; S46.811A Strain of other muscles, fascia and tendons at shoulder and upper arm level, right arm, initial encounter; X58.XXXA Exposure to other specified factors, initial encounter
CPT/HCPCS: 73221

== ENCOUNTER → 2023-04-13 13:02 | Outpatient (BNVA) | payer MEDICARE, MEDICAID, SELFPAY | PROVIDERS: PCP Internal Medicine; Visit Provider Podiatrist Foot & Ankle Surgery | DX: E11.42 Type 2 diabetes mellitus with diabetic polyneuropathy (principal); M21.70 Unequal limb length (acquired), unspecified site; M66.862 Spontaneous rupture of other tendons, left lower leg; Z79.4 Long term (current) use of insulin | CPT/HCPCS: 99213 ==

== ENCOUNTER 2023-04-17 19:27 | Emergency (ER) | payer MEDICARE, MEDICAID, SELFPAY ==
[2023-04-17 19:32] VITALS: BP 174/92; PULSE 79; RESP 18; TEMP 36.7; O2SAT 96; BMI 29.8
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
[2023-04-17 21:11] VITALS: BP 152/78; PULSE 71; RESP 16; O2SAT 97
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
[2023-04-17 22:24] VITALS: RESP 18; O2SAT 94
[2023-04-17] MEDS: oxyCODONE-APAP 5-325 mg Tablet 2 TAB PO (22:24)
[2023-04-17 22:30] VITALS: BP 137/79; PULSE 73; O2SAT 97
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
== END 2023-04-17 22:31 | disposition home or self-care (01) ==
PROVIDERS: Emergency Provider Emergency Medicine; PCP Internal Medicine
DX: S13.4XXA Sprain of ligaments of cervical spine, initial encounter (principal); S50.01XA Contusion of right elbow, initial encounter; Z79.4 Long term (current) use of insulin; E11.22 Type 2 diabetes mellitus with diabetic chronic kidney disease; N18.2 Chronic kidney disease, stage 2 (mild); Z85.51 Personal history of malignant neoplasm of bladder; V89.2XXA Person injured in unspecified motor-vehicle accident, traffic, initial encounter
CPT/HCPCS: 72040; 73060; 73090; 99284

== ENCOUNTER → 2023-05-12 08:31 | Outpatient (BNVA) | payer MEDICARE, MEDICAID, SELFPAY | PROVIDERS: PCP Family Medicine; Visit Provider Specialist | DX: M12.811 Other specific arthropathies, not elsewhere classified, right shoulder | CPT/HCPCS: 73030; 99214 ==

== ENCOUNTER → 2023-05-17 08:02 | Outpatient (BNVA) | payer MEDICARE, MEDICAID, SELFPAY | PROVIDERS: PCP Family Medicine; Visit Provider Specialist | DX: M12.811 Other specific arthropathies, not elsewhere classified, right shoulder | CPT/HCPCS: 99214 ==

== ENCOUNTER → 2023-06-07 08:09 | Outpatient (BNVA) | payer MEDICARE, MEDICAID, SELFPAY | PROVIDERS: PCP Family Medicine; Visit Provider Nurse Practitioner Family | DX: L57.8 Other skin changes due to chronic exposure to nonionizing radiation (principal); D22.5 Melanocytic nevi of trunk; L21.8 Other seborrheic dermatitis; L81.4 Other melanin hyperpigmentation; L82.1 Other seborrheic keratosis; L57.0 Actinic keratosis; T14.8XXA Other injury of unspecified body region, initial encounter; C44.612 Basal cell carcinoma of skin of right upper limb, including shoulder; C44.219 Basal cell carcinoma of skin of left ear and external auricular canal; X58.XXXA Exposure to other specified factors, initial encounter | CPT/HCPCS: 11102; 17000; 69100; 99204 ==

== ENCOUNTER 2023-07-01 16:15 | Emergency (ER) | payer MEDICARE, MEDICAID, SELFPAY ==
[2023-07-01 16:32] VITALS: BP 174/84; PULSE 117; TEMP 36.7; O2SAT 92; BMI 29.8
[2023-07-01 16:38] VITALS: BP 174/84; PULSE 118; RESP 22; O2SAT 94
--- NOTE | 2023-07-01 16:39 | ED_ITS ---
HPI - General Adult 2 General: Chief complaint: General Medical Stated complaint: body aches all over Time Seen by Provider: 07/01/23 16:32 Source: patient Mode of arrival: ambulatory Limitations: no limitations History of Present Illness: 72-year-old male here with complaint of pain all over. He states he has history of chronic pain and chronic bone pain and restless leg. He states that over the last month to 2 months he has been hurting all over try to ask him any specific places and is not able to tell me he states his whole body just hurts. No vomiting no diarrhea denies any fever Associated symptoms: Deny chest pain, dyspnea, headache(s), nausea, rash or vomiting Review of Systems 2 Const: Reports: body aches; Denies: fever(s), chills or change in appetite ENMT: Denies: throat pain or dental pain Card: Denies: chest pain Resp: Denies: dyspnea GI: Denies: abdominal pain, nausea, vomiting or diarrhea Musc: Reports: extremity pain; Denies: neck pain or back pain Skin/Breast: Denies: rash Neuro: Denies: headache(s) PFSH ED 2 PFSH: Medical History Hypotension Sepsis Acute renal failure Enterocolitis 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 BG well controlled with scheduled insulin -consistent carb diet as tolerated Parastomal hernia Pyelonephritis -UA indicative of infection -evidence of mild focal R pyelonephritis on CT -urine cx: Klebsiella oxytoca, sensitivity noted -blood cx: 2/2 bottles positive for klebsiella oxytoca; repeat set prelim negative -associated sepsis given tachycardia, leukocytosis, fever, pro-calcitonin elevated (1.35). Sepsis now resolved -continue to monitor vital signs; stable -minimal leukocytosis -has urostomy secondary to hx of bladder cancer; continue to monitor urine output -continue Ceftriaxone; will d/c on levaquin -off IVF as oral intake has improved PETER (obstructive sleep apnea) History of bladder cancer Diabetes mellitus -insulin dependent Hx of intestinal obstruction Surgical History History of cholecystectomy History of shoulder surgery History of urostomy History of esophageal hernia repair Family History Other Hypertension Social History Smoking and tobacco/nicotine status: never used tobacco/nicotine Alcohol intake: former Substance/Drug Use: never Marital status: / Current occupational status: disabled Current gender identity: Male Physical Exam 2 Const: COMMON NORMALS: no acute distress, patient oriented x3 and healthy appearing HENMT: COMMON NORMALS: normocephalic and atraumatic HEAD & SCALP: n ormocephalic and atraumatic Neck/C-Spine: COMMON NORMALS: full ROM and supple Chest: COMMONS NORMALS: normal inspection of the chest Resp: COMMON NORMALS: normal respiratory effort, No retractions, No use of accessory muscles and clear to auscultation bilaterally AUSCULTATION: clear to auscultation bilaterally Cardio: COMMON NORMALS: regular rate, regular rhythm and No murmurs present (Cardio) RATE: regular rate RHYTHM: regular rhythm GI: COMMON NORMALS: Normal to inspection, nondistended, normoactive bowel sounds present, Soft to palpation, non-tender and no masses PALPATION: Yes Soft to palpation Extremity: COMMON NORMALS: normal to inspection and full ROM Neuro: COMMON NORMALS: patient oriented x3, moves all extremities and no focal motor deficits Psych: COMMON NORMALS: mental status grossly normal, Normal thought process present and cooperative THOUGHT PROCESS: Normal thought process present Skin: COMMON NORMALS: no rashes or lesions noted and no wounds GENERAL SKIN EXAM: no rashes or lesions noted Course 2 Vital Signs: Vital signs: Vital Signs Temperature 98.0 F 07/01/23 16:32 Pulse Rate 116 H 07/01/23 18:00 Respiratory Rate 16 07/01/23 17:38 Blood Pressure 187/86 07/01/23 18:00 Pulse Oximetry 89 L 07/01/23 17:38 Oxygen Delivery Me thod Room Air 07/01/23 17:08 MDM - General Adult Medical Decision Making Patient presents here with back pain along with pain all over its chronic in nature blood work is normal besides his hyperglycemia he has uncontrolled diabetes he is not in DKA he stable for discharge she is follow-up with PCP return if worsening. Medical Records I reviewed the patient's medical records. Lab Data I reviewed the patient's lab results. 07/01/23 17:05 07/01/23 17:05 Laboratory Results WBC 10.29 10^3/uL (3.29-11.43) 07/01/23 17:05 RBC 4.87 10^6/uL (3.85-5.65) 07/01/23 17:05 Hgb 14.90 g/dL (11.27-16.99) 07/01/23 17:05 Hct 42.6 % (37-53) 07/01/23 17:05 MCV 87.5 fl (82-101) 07/01/23 17:05 MCH 30.6 pg (27-33) 07/01/23 17:05 MCHC 35.0 g/dL (30-55) 07/01/23 17:05 RDW 13.1 % (12.1-15.1) 07/01/23 17:05 Plt Count 173 10^3/cmm (157-399) 07/01/23 17:05 MPV 11.3 fL (7.4-10.4) H 07/01/23 17:05 Neut % (Auto) 64.5 % 07/01/23 17:05 Lymph % (Auto) 21.9 % 07/01/23 17:05 [place] % (Auto) 9.8 % 07/01/23 17:05 Eos % (Auto) 2.8 % 07/01/23 17:05 Baso % (Auto) 0.7 % 07/01/23 17:05 Neut # (Auto) 6.64 10^3/uL (1.8-7.7) 07/01/23 17:05 Lymph # (Auto) 2.3 10^3/uL (0.8-4.8) 07/01/23 17:05 [place] # (Auto) 1.0 10^3/uL (0.2-0.9) H 07/01/23 17:05 Eos # (Auto) 0.3 10^3/uL (0.0-0.8) 07/01/23 17:05 Baso # (Auto) 0.1 10^3/uL (0.0-0.1) 07/01/23 17:05 Nucleated RBC % (auto) 0 % 07/01/23 17:05 Nucleated RBCs # 0.0 /100WBC 07/01/23 17:05 Sodium 139 mmol/L (136-145) 07/01/23 17:05 Potassium 4.6 mmol/L (3.5-5.1) 07/01/23 17:05 Chloride 101 mmol/L (98-107) 07/01/23 17:05 Carbon Dioxide 23 mmol/L (22-29) 07/01/23 17:05 Anion Gap 19.6 (5-19) H 07/01/23 17:05 BUN 41 mg/dL (8-23) H 07/01/23 17:05 Creatinine 1.2 mg/dL (0.7-1.2) 07/01/23 17:05 GFR Calculation Not Reportable 07/01/23 17:05 Glucose 508 mg/dL (65-115) H* 07/01/23 17:05 POC Glucose 423 mg/dL (70-110) H 07/01/23 18:10 Calculated Osmolality 321 mOsm/kg (285-295) H 07/01/23 17:05 Calcium 8.9 mg/dL (8.5-10.5) 07/01/23 17:05 Total Bilirubin 0.2 mg/dL (0.15-1.2) 07/01/23 17:05 AST 15 U/L (0-40) 07/01/23 17:05 ALT 20 U/L (0-41) 07/01/23 17:05 Alkaline Phosphatase 115 U/L (40-130) 07/01/23 17:05 Total Protein 7.1 g/dL (6.6-8.7) 07/01/23 17:05 Albumin 4.0 g/dL (3.5-5.2) 07/01/23 17:05 Globulin 3.1 g/dL (1.3-4.6) 07/01/23 17:05 All radiology interpretation(s) finalized by discharge Discharge Plan Discharge Patient Disposition: Home Clinical Impression: Back pain Condition: Stable Prescriptions: No Action fluticasone propion-salmeterol [Advair Diskus] 500-50 mcg/dose blister with device 1 inh inhalation BID Qty: 60 12RF (DME) Wheel chair with elevated foot rest See Rx Instructions .Route .MEDSUPPLY Qty: 1 0RF Rx Instructions: As directed by HOME (DME) Tamara HARDY See Rx Instructions .Route .MEDSUPPLY Qty: 1 0RF Rx Instructions: As directed by ceasar phillips fluticasone propionate [Flonase Allergy Relief] 50 mcg/actuation spray,suspension 1 spray intranasal DAILY PRN (Reason: nasal congestion) Qty: 16 0RF Rx Instructions: administer into each nostril (DME) New tread for [place] Boot See Rx Instructions .Route .MEDSUPPLY Qty: 1 0RF Rx Instructions: As directed by [facility] (DME) CAM Boot See Rx Instructions .Route .MEDSUPPLY Qty: 1 0RF Rx Instructions: As directed albuterol sulfate 90 mcg/actuation HFA aerosol inhaler 2 inh INHALATION Q4H PRN (Reason: shortness of breath or wheezing) Qty: 18 0RF ropinirole 4 mg tablet 8 mg PO BID Qty: 180 3RF Jentadueto 2.5-1,000 mg tablet 1 tab PO BID Qty: 180 3RF tramadol 100 mg tablet 100 mg PO Q6H PRN (Reason: pain) Qty: 120 5RF Levemir FlexTouch U100 Insulin 100 unit/mL (3 mL) insulin pen 40 unit SUBCUT BID Qty: 30 3RF (DME) [place] Boot to the Right See Rx Instructions .Route .MEDSUPPLY Qty: 1 0RF Rx Instructions: As directed by [facility] [address] 1 % [place],Non-Aerosol 1 spray INTRANASAL BID midodrine 5 mg Tablet 5 mg PO BID PRN (Reason: Blood Pressure) ketorolac 10 mg tablet 10 mg PO TID PRN (Reason: pain) Qty: 10 0RF Discharge Orders: Discharge ED (Routine); Ordered 07/01/23 Ordered By: Jim Mims Referrals: Elton Gtz MD [Primary Care Provider] - 1-3 days Discharge Diet: Advance as tolerated Discharge Activity: Resume usual activity Patient Instructions: Back Pain (ED) Coding Level of Care Code ED Glue Spreader for Osiris Ansari
--- NOTE | 2023-07-01 16:44 | XRR_ITS ---
PROCEDURE INFORMATION: Exam: XR Lumbosacral Spine Exam date and time: 07/01/2023 6:31 PM Age: 72 years old Clinical indication: Low back pain TECHNIQUE: Imaging protocol: Radiologic exam of the lumbosacral spine. Views: 2 or 3 views. COMPARISON: CT abdomen pelvis wo con [id number] 12/02/2021 10:36 AM FINDINGS: Bones/joints: 5 [id number] vertebral bodies. Vertebral body height is maintained. No subluxation. Normal bone mineralization. Stable mild loss of disc space height at L3-L4. Stable small osteophytes at all lumbar spine levels. Facet degenerative change at all lumbar spine levels, stable at L1-L2 and L2-L3 but increasing at L3-L4, L4-L5, and L5-S1. No acute fracture. Soft tissues: No paravertebral soft tissue abnormality. No radiopaque foreign body. Intraperitoneal space: Surgical clips in the pelvis are stable. Organs: Stable findings consistent with a previous cholecystectomy with surgical clips in the right upper quadrant. Vasculature: Stable extensive atherosclerotic calcifications in the visualized arteries. XR/XR lumbar spine 2-3V* [id number] IMPRESSION: 1. No acute fracture of the lumbar spine. CT scan would be recommended if there is continuing clinical concern for fracture. 2. Multilevel degenerative changes in the lumbar spine. There is worsening facet degenerative change at L3-L4, L4-L5, and L5-S1. 3. Incidental/nonacute findings are listed in the report.
[2023-07-01 17:00] VITALS: RESP 18; O2SAT 90
[2023-07-01] MEDS: ondansetron 2 mg/ML SDV 2 mL 4 MG IVP (17:00)
[2023-07-01] MEDS: HYDROmorphone 1 mg/mL INJ 1 mL IVP (17:00)
[2023-07-01 17:08] VITALS: PULSE 114; RESP 20; O2SAT 93
[2023-07-01 17:17] LABS: Glucose Point of Care 440 mg/dL (70-110)
[2023-07-01] MEDS: insulin regular-human 100 units/1 mL 10 UNIT IVP (17:28)
[2023-07-01] MEDS: sodium chloride 0.9% 1,000 ML 999 ML IV (17:28)
[2023-07-01 17:38] VITALS: PULSE 114; RESP 16; O2SAT 89
[2023-07-01 17:40] LABS: Basophils # 0.1 10^3/uL (0.0-0.1); Basophils % 0.7 %; Eosinophils # 0.3 10^3/uL (0.0-0.8); Eosinophils % 2.8 %; Hematocrit 42.6 % (37-53); Lymphocytes # 2.3 10^3/uL (0.8-4.8); Lymphocytes % 21.9 %; Mean Corpuscular Hemoglobin 30.6 pg (27-33); Mean Corpuscular Volume 87.5 fl (82-101); Mean Platelet Volume 11.3 fL (7.4-10.4); Monocytes % 9.8 %; Neutrophils # 6.64 10^3/uL (1.8-7.7); Neutrophils % 64.5 %; Nucleated Red Blood Cells % 0 %; Platelet Count 173 10^3/cmm (157-399); Red Blood Count 4.87 10^6/uL (3.85-5.65); Red Cell Distribution Width 13.1 % (12.1-15.1); White Blood Count 10.29 10^3/uL (3.29-11.43)
[2023-07-01 17:59] LABS: Alkaline Phosphatase 115 U/L (40-130); Blood Urea Nitrogen 41 mg/dL (8-23); Calcium 8.9 mg/dL (8.5-10.5); Carbon Dioxide 23 mmol/L (22-29); Chloride 101 mmol/L (98-107); Creatinine Clr Calc Pharmacy 68.0598; Globulin 3.1 g/dL (1.3-4.6); Osmolality Calculated 321 mOsm/kg (285-295); Sodium 139 mmol/L (136-145); Total Bilirubin 0.2 mg/dL (0.15-1.2); Total Protein 7.1 g/dL (6.6-8.7)
[2023-07-01 18:00] VITALS: BP 187/86; PULSE 116
[2023-07-01 18:13] LABS: Glucose Point of Care 423 mg/dL (70-110)
[2023-07-01 18:25] LABS: Anion Gap 19.6 (5-19); Potassium 4.6 mmol/L (3.5-5.1)
[2023-07-01 18:26] LABS: Glucose 508 mg/dL (65-115)
[2023-07-01 18:40] LABS: Alanine Aminotransferase 20 U/L (0-41); Aspartate Amino Transferase 15 U/L (0-40)
== END 2023-07-01 18:51 | disposition home or self-care (01) ==
PROVIDERS: Emergency Provider Emergency Medicine; PCP Family Medicine
DX: M54.9 Dorsalgia, unspecified (principal); Z79.4 Long term (current) use of insulin; E11.22 Type 2 diabetes mellitus with diabetic chronic kidney disease; I12.9 Hypertensive chronic kidney disease with stage 1 through stage 4 chronic kidney disease, or unspecified chronic kidney disease; N18.2 Chronic kidney disease, stage 2 (mild); Z85.51 Personal history of malignant neoplasm of bladder
CPT/HCPCS: 36416; 72100; 80053; 82962; 85025; 96374; 96375; 99284; J1170; J1815; J2405; J7030

== ENCOUNTER → 2023-07-12 11:33 | Outpatient (BNVA) | payer MEDICARE, MEDICAID, SELFPAY | PROVIDERS: PCP Family Medicine; Visit Provider Family Medicine | DX: Z01.818 Encounter for other preprocedural examination (principal); E10.22 Type 1 diabetes mellitus with diabetic chronic kidney disease; N18.2 Chronic kidney disease, stage 2 (mild); I45.10 Unspecified right bundle-branch block; I44.4 Left anterior fascicular block; I21.19 ST elevation (STEMI) myocardial infarction involving other coronary artery of inferior wall | CPT/HCPCS: 81003; 83036; 87086; 93005 ==

== ENCOUNTER → 2023-07-13 13:36 | Outpatient (BNVA) | payer MEDICARE, MEDICAID, SELFPAY | PROVIDERS: PCP Family Medicine; Visit Provider Podiatrist Foot & Ankle Surgery | DX: E11.42 Type 2 diabetes mellitus with diabetic polyneuropathy (principal); M20.41 Other hammer toe(s) (acquired), right foot; M20.42 Other hammer toe(s) (acquired), left foot; M20.21 Hallux rigidus, right foot; M20.22 Hallux rigidus, left foot; M14.671 Charcot's joint, right ankle and foot; M66.862 Spontaneous rupture of other tendons, left lower leg; E11.22 Type 2 diabetes mellitus with diabetic chronic kidney disease; N18.2 Chronic kidney disease, stage 2 (mild) | CPT/HCPCS: 99213 ==

== ENCOUNTER → 2023-07-14 08:39 | Outpatient (BNVA) | payer MEDICARE, MEDICAID, SELFPAY | PROVIDERS: PCP Family Medicine; Visit Provider Dermatology | DX: C44.229 Squamous cell carcinoma of skin of left ear and external auricular canal (principal); C44.612 Basal cell carcinoma of skin of right upper limb, including shoulder | CPT/HCPCS: 11603; 13121; 14060; 17311 ==

== ENCOUNTER → 2023-07-19 10:48 | Outpatient (BNVA) | payer MEDICARE, MEDICAID, SELFPAY | PROVIDERS: PCP Family Medicine; Visit Provider Anesthesiology Pain Medicine | DX: E11.40 Type 2 diabetes mellitus with diabetic neuropathy, unspecified; M51.16 Intervertebral disc disorders with radiculopathy, lumbar region; Z79.4 Long term (current) use of insulin | CPT/HCPCS: 99204 ==

== ENCOUNTER 2023-08-05 09:37 | Outpatient (CLI) | payer MEDICARE, MEDICAID, SELFPAY ==
--- NOTE | 2023-08-05 09:39 | CT_ITS ---
WS: [id number] CT HEAD TECHNIQUE: Noncontrast and contrast-enhanced CT of the head. 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 FINDINGS: No evidence of intracranial hemorrhage or mass effect. Ventricular system and basal cisterns are josé nt. Mild small vessel changes with mild parenchymal volume loss. Vascular calcification. Few tiny chr onic appearing lacunar infarcts in the RIGHT caudate and internal capsule. No abnormal intracranial enhancement. No enhancing intracranial lesions. Mild mucosal thickening in the ethmoid air cells. Mastoid air cells are well aerated. CT/CT head wo/w con [id number] IMPRESSION: 1. No acute intracranial findings. 2. No abnormal intracranial enhancement. 3. Partially visualized known squamous cell carcinoma left ear
--- NOTE | 2023-08-05 09:39 | CT_ITS ---
WS: [id number] CT NECK TECHNIQUE: Contrast-enhanced CT of the neck with coronal and sagittal reformatted images. 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 DLP: 220.[address] scans at [facility] use at least one of these dose optimization techniques: automated e xposure control; mA and/or kV adjustment per patient size (includes targeted exams where dose is matc hed to clinical indication); or iterative reconstruction. FINDINGS: Enhancing soft tissue lesion involving the LEFT external ear measuring approximately 2.2 x 1.7 with a ssociated soft tissue enhancement and thickening extending to the abutting cartilaginous external aud itory canal. Mastoid is normal in appearance. No evidence of bony destruction. Bony EAC appears denia l. Mastoid air cells are well aerated. Normal posterior nasopharynx. Normal parapharyngeal fat. Normal [place] tonsils. No evidence of supr aglottic or glottic mass. Normal subglottic airway. A few small subcentimeter thyroid nodules. Advanced emphysematous changes in the lung apices. Moderate spondylitic changes cervical spine. Parot id glands are normal. Normal submandibular glands. Dense RIGHT carotid bulb calcification. No cervica l lymphadenopathy. CT/CT neck w con* [id number] IMPRESSION: 1. Enhancing soft tissue nodule involving LEFT external ear with soft tissue t hickening along the adjacent cartilaginous external auditory canal. No evidence of bony destruction. Normal mastoid. 2. No cervical lymphadenopathy. 3. A few small subcentimeter thyroid nodules. 4. Dense RIGHT carotid bulb calcification. Carotids could be further evaluated with ultrasound. 5. No other acute findings.
[2023-08-05] MEDS: iohexol 300 mg/mL 100 mL Btl IV (10:14)
== END 2023-08-05 09:38 | disposition home or self-care (01) ==
LOC: RAD 09:37
PROVIDERS: PCP Family Medicine; Visit Provider Dermatology
DX: C44.229 Squamous cell carcinoma of skin of left ear and external auricular canal (principal); C44.612 Basal cell carcinoma of skin of right upper limb, including shoulder; H61.899 Other specified disorders of external ear, unspecified ear; I65.23 Occlusion and stenosis of bilateral carotid arteries; J43.9 Emphysema, unspecified; M47.892 Other spondylosis, cervical region; I67.2 Cerebral atherosclerosis
CPT/HCPCS: 70470; 70491; 99204; Q9967

== ENCOUNTER 2023-08-06 13:35 | Emergency (ER) | payer MEDICARE, MEDICAID, SELFPAY ==
[2023-08-06 13:47] VITALS: BP 131/71; PULSE 93; RESP 16; TEMP 36.7; O2SAT 95; BMI 29.8
--- NOTE | 2023-08-06 13:55 | ED_ITS ---
HPI - Extremity Injury (Lower) General: Chief Complaint: Extremity Injury, Lower Stated Complaint: right foot pain Time Seen by Provider: 08/06/23 13:54 Source: patient Mode of arrival: ambulatory Limitations: no limitations History of Present Illness: Patient is a nice 72-year-old male presents to ED today for evaluation of a right ankle/foot injury that he sustained just prior to arrival. Patient states he was raising his left leg to get into a truck when he felt a pop/snap to his right foot/ankle. He states he has been ambulatory on the extremity since, but with discomfort. He states he sees Dr. Day for his feet. According to previous documentation, he has a history of a Charcot arthropathy to the right foot. MD complaint: ankle injury and foot injury Onset (ago): hour(s) Injury: Right: ankle and foot Place: home Severity: moderate Relieving factors: immobilization Exacerbating factors: weight bearing and movement Associated symptoms: Reports no associated symptoms Other symptoms: none Review of Systems Musc: Reports: extremity pain (R foot) and joint pain (R ankle) Neuro: Denies: numbness in extremities, weakness in extremities, sensory changes or difficulty walking [facility] ED PFSH: Medical History Hypotension Sepsis Acute renal failure Enterocolitis 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 BG well controlled with scheduled insulin -consistent carb diet as tolerated Parastomal hernia Pyelonephritis -UA indicative of infection -evidence of mild focal R pyelonephritis on CT -urine cx: Klebsiella oxytoca, sensitivity noted -blood cx: 2/2 bottles positive for klebsiella oxytoca; repeat set prelim negative -associated sepsis given tachycardia, leukocytosis, fever, pro-calcitonin elevated (1.35). Sepsis now resolved -continue to monitor vital signs; stable -minimal leukocytosis -has urostomy secondary to hx of bladder cancer; continue to monitor urine output -continue Ceftriaxone; will d/c on levaquin -off IVF as oral intake has improved PETER (obstructive sleep apnea) History of bladder cancer Diabetes mellitus -insulin dependent Hx of intestinal obstruction Surgical History History of cholecystectomy History of shoulder surgery History of urostomy History of esophageal hernia repair Family History Other Hypertension Social History Smoking and tobacco/nicotine status: never used tobacco/nicotine Alcohol intake: former Substance/Drug Use: never Marital status: / Current occupational status: disabled Current gender identity: Male Physical Exam Const: COMMON NORMALS: no acute distress, average body habitus, patient oriented x3, no limitations, alert and well nourished Extremity: COMMON NORMALS: capillary refill normal and no calf tenderness GENERAL: Yes normal exam except as noted RIGHT LOWER EXTREMITY: Yes foot & digits Right ankle: Yes inspection (edema lateral ankle), Yes ROM (normal) and Yes neurovascular exam (normal) and Yes foot & digits Right foot and digits: Yes inspection (midfoot deformity consistent with his known Charcot's), Yes palpation (TTP lateral dorsal foot) and Yes neurovascular exam (normal) Neuro: COMMON NORMALS: patient oriented x3, moves all extremities, no focal motor deficits and no sensory deficits noted SENSORIUM/ORIENTATION: Yes alert Course Vital Signs: Vital signs: Vital Signs Temperature 98.1 F 08/06/23 13:47 Pulse Rate 93 08/06/23 13:47 Respiratory Rate 16 08/06/23 13:47 Blood Pressure 131/71 08/06/23 13:47 Pulse Oximetry 95 08/06/23 13:47 Oxygen Delivery Me thod Room Air 08/06/23 13:47 MDM - Extremity Injury (Lower) Medical Decision Making Personal interpretation of patient's XRs showing no obvious differences from previous. Known Charcot arthropathy. Patient does not want crutches. He states he will start using his boot again as well as his cane for offloading. 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 Return precautions discussed. Medical Records I reviewed the patient's medical records. XR interpretation done by ED provider, pending radiology final review Discharge Plan Discharge Patient Disposition: Home Clinical Impression: Charcot's arthropathy Injury of foot, right Qualifiers: Encounter type: initial encounter Qualified Code(s): S99.921A - Unspecified injury of right foot, initial encounter Condition: Stable Prescriptions: No Action fluticasone propion-salmeterol [Advair Diskus] 500-50 mcg/dose blister with device 1 inh inhalation BID Qty: 60 12RF (DME) Wheel chair with elevated foot rest See Rx Instructions .Route .MEDSUPPLY Qty: 1 0RF Rx Instructions: As directed by HOME (DME) Tamara HARDY See Rx Instructions .Route .MEDSUPPLY Qty: 1 0RF Rx Instructions: As directed by ceasar phillips fluticasone propionate [Flonase Allergy Relief] 50 mcg/actuation spray,suspension 1 spray intranasal DAILY PRN (Reason: nasal congestion) Qty: 16 0RF Rx Instructions: administer into each nostril gabapentin 300 mg capsule 300 mg PO TID Levemir FlexTouch U100 Insulin 100 unit/mL (3 mL) insulin pen 70 unit SUBCUT BID (DME) New tread for [place] Boot See Rx Instructions .Route .MEDSUPPLY Qty: 1 0RF Rx Instructions: As directed by [facility]AN[facility] ([facility] [place]) CAM Boot See Rx Instructions .Route .MEDSUPPLY Qty: 1 0RF Rx Instructions: As directed ([facility] [place]) Diabetic shoes See Rx Instructions .ROUTE .MEDSUPPLY Qty: 1 0RF Rx Instructions: with custom molded accommodative orthotics the shoe jacqueline albuterol sulfate 90 mcg/actuation HFA aerosol inhaler 2 inh INHALATION Q4H PRN (Reason: shortness of breath or wheezing) Qty: 18 0RF ropinirole 4 mg tablet 8 mg PO BID Qty: 180 3RF Jentadueto 2.5-1,000 mg tablet 1 tab PO BID Qty: 180 3RF tramadol 100 mg tablet 100 mg PO Q6H PRN (Reason: pain) Qty: 120 5RF (DME) [place] Boot to the Right See Rx Instructions .Route .MEDSUPPLY Qty: 1 0RF Rx Instructions: As directed by [facility] midodrine 5 mg Tablet 5 mg PO BID PRN (Reason: Blood Pressure) Discharge Orders: Discharge ED (Routine); Ordered 08/06/23 Ordered By: Gladys Taylor Activity Restrictions/Additional Instructions: As we discussed I would like you to start wearing your boot again and utilizing your cane. Please contact your field artillery operations specialist for follow-up in regards to your recent foot injury. Coding Level of Care Code ED Shellfish Shucker for Osiris Ansari
--- NOTE | 2023-08-06 13:57 | XR_ITS ---
WS: [id number] Right foot, 3 views, 08/06/2023 Clinical Data: injury Comparison: Right foot, 12/02/2022 Findings: There is fragmentation and sclerosis of the tarsal bones with loss of the plantar arch. No change fro m prior studies is seen. 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 No acute fractures are seen. The soft tissues a re normal. There is a plantar spur. XR/XR foot RT min 3V* [id number] Impression: No change in Charcot arthropathy of the tarsal bones of the right foot.
--- NOTE | 2023-08-06 13:57 | XR_ITS ---
WS: [id number] Right ankle, 3 views, 08/06/2023 Clinical Data: injury/pain Comparison: Right foot, 12/02/2022 Findings: No fractures or dislocations are seen. The ankle mortise is normal. The talus and calcaneus are unrem arkable. No soft tissue swelling over the medial or lateral malleolus is seen. There is osteoarthritic change of the tarsal bones with loss of the plantar arch of the foot. The fra gmentation and porosis is consistent with Charcot arthropathy. XR/XR ankle RT min 3V* [id number] Impression: 1. Negative right ankle. 2. Charcot arthropathy of the tarsal bones.
[2023-08-06 14:52] VITALS: BP 146/77; PULSE 90; RESP 16; TEMP 36.6; O2SAT 95
== END 2023-08-06 14:53 | disposition home or self-care (01) ==
PROVIDERS: Emergency Provider Physician Assistant
DX: S99.921A Unspecified injury of right foot, initial encounter (principal); E11.610 Type 2 diabetes mellitus with diabetic neuropathic arthropathy; Z79.4 Long term (current) use of insulin; X58.XXXA Exposure to other specified factors, initial encounter
CPT/HCPCS: 73610; 73630; 99283

== ENCOUNTER 2023-08-08 09:15 | Emergency (ER) | payer MEDICARE, MEDICAID, SELFPAY ==
[2023-08-08] VITALS (10 sets, daily range): BP systolic 103–146; BP diastolic 54–87; PULSE 91–110; RESP 17–20; TEMP 38.8; O2SAT 93–97
[2023-08-08 09:33] LABS: Glucose Point of Care 208 mg/dL (70-110)
--- NOTE | 2023-08-08 09:48 | ECG_ITS ---
[facility] Test Date: 2023-08-08 Pat Name: Cole Troncoso Department: Room: Gender: Male Community Manager: : 1950 Requested By: Jordy Heaton Order Number: [id number] Sharri MD: Jj Zarco M.D. Measurements Intervals [place] Rate: 104 P: 0 NM: 0 QRS: -26 QRSD: 129 T: 49 QT: 335 QTc: 442 Interpretive Statements Sinus rhythm BORDERLINE LEFT AXIS DEVIATION [QRS AXIS < -20] RIGHT BUNDLE BRANCH BLOCK [120+ ms QRS DURATION, UPRIGHT V1, 40+ ms S IN I/aVL/V4/V5/V6] Compared to ECG 07/12/2023 11:46:42 No significant change Electronically Signed On 08-08-2023 13:10:26 CDT by Jj Zarco M.D. [id number]
--- NOTE | 2023-08-08 09:48 | XRR_ITS ---
PROCEDURE INFORMATION: Exam: XR Chest Exam date and time: 08/08/2023 10:10 AM Age: 72 years old Clinical indication: Other: N/v; Additional info: Dyspnea/cough TECHNIQUE: Imaging protocol: Radiologic exam of the chest. Views: 1 view. COMPARISON: CR XR chest 1V portable [id number] 01/15/2023 9:30 PM FINDINGS: Lungs: Bilateral lung lobes are clear. Pleural spaces: No pneumothorax, or pleural effusion. Heart/Mediastinum: Mild enlargement of the cardiac silhouette. The cardiac silhouette demonstrates mild diffuse enlargement. Bones/joints: No acute fracture. XR/XR chest 1V portable [id number] IMPRESSION: No focal lung consolidation.
--- NOTE | 2023-08-08 10:01 | ED_ITS ---
HPI - Nausea/Vomiting/Diarrhea 2 General: Chief complaint: Nausea/Vomiting/Diarrhea Stated complaint: N/V Time Seen by Provider: 08/08/23 09:40 Source: patient Mode of arrival: ambulatory History of Present Illness: 70-year-old male presents emergency room complaining of abdominal discomfort nausea and diarrhea started last night he is not taking anything for it denies fevers or chills hematochezia melena hematemesis coffee-ground emesis. 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 MD elicited complaint: nausea and vomiting Associated symtoms: Denies chest pain or dysuria Review of Systems 2 Const: Denies: fever(s) or chills Card: Denies: chest pain Resp: Denies: dyspnea GI: Denies: abdominal pain : Denies: dysuria, urinary frequency or urinary urgency Musc: Denies: neck pain or back pain Skin/Breast: Denies: rash PFSH ED 2 PFSH: Medical History Hypotension Sepsis Acute renal failure Enterocolitis 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 BG well controlled with scheduled insulin -consistent carb diet as tolerated Parastomal hernia Pyelonephritis -UA indicative of infection -evidence of mild focal R pyelonephritis on CT -urine cx: Klebsiella oxytoca, sensitivity noted -blood cx: 2/2 bottles positive for klebsiella oxytoca; repeat set prelim negative -associated sepsis given tachycardia, leukocytosis, fever, pro-calcitonin elevated (1.35). Sepsis now resolved -continue to monitor vital signs; stable -minimal leukocytosis -has urostomy secondary to hx of bladder cancer; continue to monitor urine output -continue Ceftriaxone; will d/c on levaquin -off IVF as oral intake has improved PETER (obstructive sleep apnea) History of bladder cancer Diabetes mellitus -insulin dependent Hx of intestinal obstruction Surgical History History of cholecystectomy History of shoulder surgery History of urostomy History of esophageal hernia repair Family History Other Hypertension Social History Smoking and tobacco/nicotine status: never used tobacco/nicotine Alcohol intake: former Substance/Drug Use: never Marital status: / Current occupational status: disabled Current gender identity: Male Physical Exam 2 Const: COMMON NORMALS: no acute distress GENERAL APPEARANCE: cooperative and comfortable ORIENTATION/CONSCIOUSNESS: Yes awake, Yes oriented to person, Yes oriented to place and Yes oriented to time HENMT: COMMON NORMALS: normocephalic, atraumatic and hearing grossly normal bilaterally HEAD & SCALP: normocephalic and atraumatic Resp: COMMON NORMALS: normal respiratory effort, No retractions, No use of accessory muscles and clear to auscultation bilaterally AUSCULTATION: clear to auscultation bilaterally Cardio: COMMON NORMALS: regular rate, regular rhythm and No murmurs present (Cardio) RATE: regular rate RHYTHM: regular rhythm GI: COMMON NORMALS: Soft to palpation and No hepatosplenomegaly present A USCULTATION: Yes normoactive bowel sounds PALPATION: Yes Soft to palpation, No Tenderness to palpation present (GI), No Guarding due to palpation present (GI) and Yes No hepatosplenomegaly present Extremity: COMMON NORMALS: normal to inspection, capillary refill normal, no clubbing, cyanosis or edema, no calf tenderness and no pedal edema Neuro: SENSORIUM/ORIENTATION: Yes oriented to person, Yes oriented to place and Yes oriented to time Skin: COMMON NORMALS: no rashes or lesions noted GENERAL SKIN EXAM: no rashes or lesions noted Course 2 Vital Signs: Vital signs: Vital Signs Temperature 101.8 F H 08/08/23 09:21 Pulse Rate 92 08/08/23 15:00 Respiratory Rate 18 08/08/23 15:36 Blood Pressure 104/54 08/08/23 15:00 Pulse Oximetry 97 08/08/23 15:00 Oxygen Delivery Me thod Room Air 08/08/23 15:00 MDM - Nausea/Vomiting/Diarrhea Medical Decision Making Herniation of bowel and omentum into the stoma of the ileal conduit. Partial small bowel obstruction noted on CT. Discussed with on-call general surgery this is not a case that they would manage. Discussing with patient he has had this multiple times before usually has been treated conservatively but we do need to have him somewhere where they can be managed including the availability of urology for consultation if needed. Patient has been to [facility] for this in the past. We contacted them they are willing to accept the patient on transfer, transferred in stable condition. Medical Records I reviewed the patient's medical records. Lab Data I reviewed the patient's lab results. 08/08/23 10:02 08/08/23 10:02 Radiology Impressions Abdomen/Pelvis CT 08/08/23 10:11 IMPRESSION: 1. Right lower quadrant stoma herniation that contains mesenteric fat, small bowel, large bowel, an anastomosis surgical site, no free fluid within the hernia, there is mild upstream dilatation of the small bowel measuring up to 2.4 centimeters, with greater than 50% narrowing between fluid-filled bowel and decompressed bowel at the entrance of the stoma (series 3, image 64). Findings can be seen with early partial small bowel obstruction, close follow-up recommended. 2. Status post cystectomy with ileal conduit, no hydronephrosis. Unchanged right renal pelvic fullness. Chest X-Ray 08/08/23 15:29 IMPRESSION: NG tube is seen coursing through the midline, with the tip below the diaphragm, and the side port 2 centimeters from the gastroesophageal junction, consider advancing by at least 3 centimeters. Laboratory Results WBC 10.49 10^3/uL (3.29-11.43) 08/08/23 10:02 RBC 5.20 10^6/uL (3.85-5.65) 08/08/23 10:02 Hgb 15.90 g/dL (11.27-16.99) 08/08/23 10:02 Hct 46.7 % (37-53) 08/08/23 10:02 MCV 89.8 fl (82-101) 08/08/23 10:02 MCH 30.6 pg (27-33) 08/08/23 10:02 MCHC 34.0 g/dL (30-55) 08/08/23 10:02 RDW 12.9 % (12.1-15.1) 08/08/23 10:02 Plt Count 150 10^3/cmm (157-399) L 08/08/23 10:02 MPV 10.5 fL (7.4-10.4) H 08/08/23 10:02 Neut % (Auto) 80.7 % 08/08/23 10:02 Lymph % (Auto) 7.3 % 08/08/23 10:02 Charlton % (Auto) 8.8 % 08/08/23 10:02 Eos % (Auto) 2.2 % 08/08/23 10:02 Baso % (Auto) 0.5 % 08/08/23 10:02 Neut # (Auto) 8.47 10^3/uL (1.8-7.7) H 08/08/23 10:02 Lymph # (Auto) 0.8 10^3/uL (0.8-4.8) 08/08/23 10:02 Charlton # (Auto) 0.9 10^3/uL (0.2-0.9) 08/08/23 10:02 Eos # (Auto) 0.2 10^3/uL (0.0-0.8) 08/08/23 10:02 Baso # (Auto) 0.1 10^3/uL (0.0-0.1) 08/08/23 10:02 Nucleated RBC % (auto) 0 % 08/08/23 10:02 Nucleated RBCs # 0.0 /100WBC 08/08/23 10:02 Sodium 134 mmol/L (136-145) L 08/08/23 10:02 Potassium 4.4 mmol/L (3.5-5.1) 08/08/23 10:02 Chloride 102 mmol/L (98-107) 08/08/23 10:02 Carbon Dioxide 19 mmol/L (22-29) L 08/08/23 10:02 Anion Gap 17.4 (5-19) 08/08/23 10:02 BUN 41 mg/dL (8-23) H 08/08/23 10:02 Creatinine 1.3 mg/dL (0.7-1.2) H 08/08/23 10:02 GFR Calculation Not Reportable 08/08/23 10:02 Glucose 236 mg/dL (65-115) H 08/08/23 10:02 POC Glucose 208 mg/dL (70-110) H 08/08/23 09:25 Calculated Osmolality 296 mOsm/kg (285-295) H 08/08/23 10:02 Lactic Acid 1.3 mmol/L (0.5-2.2) 08/08/23 12:05 Calcium 8.7 mg/dL (8.5-10.5) 08/08/23 10:02 Total Bilirubin 0.5 mg/dL (0.15-1.2) 08/08/23 10:02 Total Bilirubin 0.5 mg/dL (0.15-1.2) 08/08/23 10:02 Direct Bilirubin 0.20 mg/dL (0.00-0.30) 08/08/23 10:02 AST 13 U/L (0-40) 08/08/23 10:02 AST 14 U/L (0-40) 08/08/23 10:02 ALT 18 U/L (0-41) 08/08/23 10:02 ALT 18 U/L (0-41) 08/08/23 10:02 Alkaline Phosphatase 89 U/L (40-130) 08/08/23 10:02 Alkaline Phosphatase 91 U/L (40-130) 08/08/23 10:02 Total Protein 7.7 g/dL (6.6-8.7) 08/08/23 10:02 Total Protein 8.0 g/dL (6.6-8.7) 08/08/23 10:02 Albumin 4.0 g/dL (3.5-5.2) 08/08/23 10:02 Albumin 4.1 g/dL (3.5-5.2) 08/08/23 10:02 Globulin 3.7 g/dL (1.3-4.6) 08/08/23 10:02 Globulin 3.9 g/dL (1.3-4.6) 08/08/23 10:02 Adenovirus (PCR) Not detected (NOT DETECT) 08/08/23 13:01 C. pneumoniae DNA (PCR) Not detected (NOT DETECT) 08/08/23 13:01 Coronavirus 229E (PCR) Not detected (NOT DETECT) 08/08/23 13:01 Human Metapneumovir PCR Not detected (NOT DETECT) 08/08/23 13:01 Influenza A (H1) PCR Not detected (NOT DETECT) 08/08/23 13:01 Influ A (H1/09) PCR Not detected (NOT DETECT) 08/08/23 13:01 Influenza A (H3) PCR Not detected (NOT DETECT) 08/08/23 13:01 Influenza Type A (PCR) Not detected (NOT DETECT) 08/08/23 13:01 Influenza Type B (PCR) Not detected (NOT DETECT) 08/08/23 13:01 M. pneumoniae (PCR) Not detected (NOT DETECT) 08/08/23 13:01 Parainfluenza 1 (PCR) Not detected (NOT DETECT) 08/08/23 13:01 Parainfluenza 2 (PCR) Not detected (NOT DETECT) 08/08/23 13:01 Parainfluenza 3 (PCR) Not detected (NOT DETECT) 08/08/23 13:01 Parainfluenza 4 (PCR) Not detected (NOT DETECT) 08/08/23 13:01 RSV Type A (PCR) Not detected (NOT DETECT) 08/08/23 13:01 RSV Type B (PCR) Not detected (NOT DETECT) 08/08/23 13:01 Entero/Rhino (PCR) Not detected (NOT DETECT) 08/08/23 13:01 SARS-CoV-2 (PCR) Not detected (NOT DETECT) 08/08/23 13:01 All radiology interpretation(s) finalized by discharge Discharge Plan Discharge Patient Disposition: Xfer Short-Term Hosp Clinical Impression: Hernia of ureteroileal conduit stoma, Partial obstruction of small intestine Condition: Stable Coding Level of Care Code ED [id number] Android Developer for Osiris Ansari
[2023-08-08 10:07] LABS: Basophils # 0.1 10^3/uL (0.0-0.1); Basophils % 0.5 %; Eosinophils # 0.2 10^3/uL (0.0-0.8); Eosinophils % 2.2 %; Hematocrit 46.7 % (37-53); Lymphocytes # 0.8 10^3/uL (0.8-4.8); Lymphocytes % 7.3 %; Mean Corpuscular Hemoglobin 30.6 pg (27-33); Mean Corpuscular Volume 89.8 fl (82-101); Mean Platelet Volume 10.5 fL (7.4-10.4); Monocytes # 0.9 10^3/uL (0.2-0.9); Monocytes % 8.8 %; Neutrophils # 8.47 10^3/uL (1.8-7.7); Neutrophils % 80.7 %; Nucleated Red Blood Cells % 0 %; Platelet Count 150 10^3/cmm (157-399); Red Cell Distribution Width 12.9 % (12.1-15.1); White Blood Count 10.49 10^3/uL (3.29-11.43)
--- NOTE | 2023-08-08 10:11 | CTR_ITS ---
PROCEDURE INFORMATION: Exam: CT Abdomen And Pelvis Without Contrast Exam date and time: 08/08/2023 10:32 AM Age: 72 years old Clinical indication: Abdominal tenderness; Prior surgery; Surgery date: 6+ months; Surgery type: Cystectomy d/t bladder cancer, 2x abdominal mesh surgeries, adhesions; Additional info: Abdominal pain TECHNIQUE: Imaging protocol: Computed tomography of the abdomen and pelvis without contrast. Radiation optimization: All CT scans at this facility use at least one of these dose optimization techniques: automated exposure control; mA and/or kV adjustment per patient size (includes targeted exams where dose is matched to clinical indication); or iterative reconstruction. COMPARISON: CT abdomen pelvis con [id number] 12/02/2021 10:36 AM RADIATION DOSE METRICS: Total DLP (mGy-cm): 906.13 FINDINGS: Liver: Normal. No mass. Gallbladder and bile ducts: There has been a cholecystectomy. Pancreas: No pancreatitis. Main pancreatic duct within normal limits. There is diffuse, benign fatty infiltration of the pancreas. Spleen: Normal. No splenomegaly. Adrenal glands: Normal. No mass. Kidneys and ureters: No hydronephrosis, there is mild bilateral pelvic fullness, no obstructing stones identified. Nonobstructing bilateral punctate calcifications. Stomach and bowel: Right lower quadrant stoma herniation that contains mesenteric fat, small bowel, large bowel, an anastomosis surgical site, no free fluid within the hernia, there is mild upstream dilatation of the small bowel measuring up to 2.4 centimeters, with greater than 50% narrowing between fluid-filled bowel and decompressed bowel at the entrance of the stoma (series 3, image 64). Appendix: No evidence of appendicitis. Intraperitoneal space: See Urinary bladder finding. Vasculature: Scattered calcified atherosclerotic plaques of the abdominal aorta and iliac arteries without significant stenosis. Lymph nodes: Unremarkable. No enlarged lymph nodes. Urinary bladder: Status post cystectomy with ileal conduit. Reproductive: Unremarkable as visualized. Bones/joints: Unremarkable. No acute fracture. Soft tissues: Unremarkable. CT/CT abdomen pelvis con [id number] IMPRESSION: 1. Right lower quadrant stoma herniation that contains mesenteric fat, small bowel, large bowel, an anastomosis surgical site, no free fluid within the hernia, there is mild upstream dilatation of the small bowel measuring up to 2.4 centimeters, with greater than 50% narrowing between fluid-filled bowel and decompressed bowel at the entrance of the stoma (series 3, image 64). Findings can be seen with early partial small bowel obstruction, close follow-up recommended. 2. Status post cystectomy with ileal conduit, no hydronephrosis. Unchanged right renal pelvic fullness.
[2023-08-08 10:24] LABS: Alanine Aminotransferase 18 U/L (0-41); Alkaline Phosphatase 89 U/L (40-130); Anion Gap 17.4 (5-19); Aspartate Amino Transferase 13 U/L (0-40); Blood Urea Nitrogen 41 mg/dL (8-23); Calcium 8.7 mg/dL (8.5-10.5); Carbon Dioxide 19 mmol/L (22-29); Chloride 102 mmol/L (98-107); Globulin 3.7 g/dL (1.3-4.6); Glucose 236 mg/dL (65-115); Osmolality Calculated 296 mOsm/kg (285-295); Potassium 4.4 mmol/L (3.5-5.1); Sodium 134 mmol/L (136-145); Total Bilirubin 0.5 mg/dL (0.15-1.2); Total Protein 7.7 g/dL (6.6-8.7)
[2023-08-08 10:25] LABS: Creatinine Clr Calc Pharmacy 62.8244
[2023-08-08] MEDS: ondansetron 2 mg/ML SDV 2 mL 4 MG IVP ×2 (10:51→11:50)
[2023-08-08] MEDS: sodium chloride 0.9% 1,000 ML 999 ML IV ×2 (10:51→14:59)
[2023-08-08] MEDS: morphine 4 mg/mL SDV 1 mL IVP ×3 (11:48→18:51)
[2023-08-08 12:27] LABS: Lactic Sepsis W/Reflex 1.3 mmol/L (0.5-2.2)
[2023-08-08 12:45] LABS: Alanine Aminotransferase 18 U/L (0-41); Albumin Level 4.1 g/dL (3.5-5.2); Alkaline Phosphatase 91 U/L (40-130); Aspartate Amino Transferase 14 U/L (0-40); Globulin 3.9 g/dL (1.3-4.6); Total Bilirubin 0.5 mg/dL (0.15-1.2)
[2023-08-08] MEDS: acetaminophen 1,000 MG/100 ML PIGGYBACK 400 MG IV (12:58)
[2023-08-08 14:56] LABS: Adenovirus Not Detected (NOT DETECT); Chlamydia Pneumoniae Not Detected (NOT DETECT); Coronavirus 229E,HKU1,NL63,OC4 Not Detected (NOT DETECT); Human Metapneumovirus Not Detected (NOT DETECT); Human Rhinovirus/Enterovirus Not Detected (NOT DETECT); Influenza A Not Detected (NOT DETECT); Influenza A H1 Not Detected (NOT DETECT); Influenza A H1-2009 Not Detected (NOT DETECT); Influenza A H3 Not Detected (NOT DETECT); Influenza B Not Detected (NOT DETECT); Mycoplasma Pneumoniae Not Detected (NOT DETECT); Parainfluenza Virus Type 1 Not Detected (NOT DETECT); Parainfluenza Virus Type 2 Not Detected (NOT DETECT); Parainfluenza Virus Type 3 Not Detected (NOT DETECT); Parainfluenza Virus Type 4 Not Detected (NOT DETECT); Respiratory Syncytial Virus A Not Detected (NOT DETECT); Respiratory Syncytial Virus B Not Detected (NOT DETECT); SARS-COV-2 Not Detected (NOT DETECT)
--- NOTE | 2023-08-08 15:10 | PC.NURSE ---
PT REPORT CALLED TO ÁNGELA TOBIN AT [facility].
--- NOTE | 2023-08-08 15:29 | XRR_ITS ---
PROCEDURE INFORMATION: Exam: XR Chest Exam date and time: 08/08/2023 3:37 PM Age: 72 years old Clinical indication: Device placement; Ng tube; Additional info: Ng tube placement TECHNIQUE: Imaging protocol: Radiologic exam of the chest. Views: 1 view. COMPARISON: CR (CHEST, ) 08/08/2023 10:10 AM FINDINGS: Tubes, catheters and devices: NG tube is seen coursing through the midline, with the side port a proximally 2 centimeters from the gastroesophageal junction, consider advancing by at least 3 centimeters. Lungs: Unremarkable. No consolidation. Pleural spaces: Unremarkable. No pleural effusion. No pneumothorax. Heart/Mediastinum: Unremarkable. No cardiomegaly. Bones/joints: Unremarkable. XR/XR chest 1V portable [id number] IMPRESSION: NG tube is seen coursing through the midline, with the tip below the diaphragm, and the side port 2 centimeters from the gastroesophageal junction, consider advancing by at least 3 centimeters.
--- NOTE | 2023-08-08 16:19 | PC.NURSE ---
PT FAMILY UPSET THAT PT HAS NOT EATEN ALL DAY. PER DR WEBB PT IS TO NOT HAVE ANYTHING BY MOUTH. PT FAMILY STILL UPSET. FAMILY EDUCATED ON NEED TO NOT HAVE ANY FOOD AT THIS TIME.
--- NOTE | 2023-08-08 16:56 | XRR_ITS ---
PROCEDURE INFORMATION: Exam: XR Chest Exam date and time: 08/08/2023 5:01 PM Age: 72 years old Clinical indication: Device placement; Ng tube; Additional info: Ng tube placement TECHNIQUE: Imaging protocol: Radiologic exam of the chest. Views: 1 view. COMPARISON: CR (CHEST, ) 08/08/2023 3:37 PM FINDINGS: Tubes, catheters and devices: NG tube is seen coursing through the midline, with its tip below the diaphragm in the left upper quadrant, and the side port well-positioned. Lungs: Unremarkable. No consolidation. Pleural spaces: Unremarkable. No pleural effusion. No pneumothorax. Heart/Mediastinum: Unremarkable. No cardiomegaly. Bones/joints: Unremarkable. XR/XR chest 1V portable [id number] IMPRESSION: An NG tube is seen coursing through the midline, with its tip located below the diaphragm in the left upper quadrant, and the side port is well-positioned.
--- NOTE | 2023-08-08 17:36 | XRR_ITS ---
PROCEDURE INFORMATION: Exam: XR Chest Exam date and time: 08/08/2023 5:40 PM Age: 72 years old Clinical indication: Device placement; Ng tube; Additional info: Ng tube placement TECHNIQUE: Imaging protocol: Radiologic exam of the chest. Views: 1 view. COMPARISON: CR (CHEST, ) 08/08/2023 5:01 PM FINDINGS: Tubes, catheters and devices: NG tube is seen coursing through the midline, with its tip below the diaphragm in the left upper quadrant. Side port well-positioned. Lungs: Unremarkable. No consolidation. Pleural spaces: No pneumothorax, no other acute interval changes. Heart/Mediastinum: Unremarkable. No cardiomegaly. Bones/joints: Unremarkable. XR/XR chest 1V portable [id number] IMPRESSION: NG tube is seen coursing through the midline, with its tip below the diaphragm in the left upper quadrant. Side port well-positioned.
[2023-08-08] MEDS: LORazepam 2 mg/mL INJ 10 mL MDV 1 MG IVP (17:39)
--- NOTE | 2023-08-08 17:48 | PC.NURSE ---
UPON ENTERING ROOM, PT NG TUBE WAS STARTING TO COME OUT. NG TUBE WAS IN CORRECT PLACEMENT AND CONFIRMED BY X-RAY PRIOR TO THE TUBE STARTING TO COME OUT. THIS NURSE INSTRUCTED THE PT TO NOT MOVE SO SHE COULD GET MORE SUPPLIES TO RESECURE PT NG TUBE. WHEN NG TUBE WAS REASSESSED, THIS NURSE DETERMINED THAT ANOTHER X-RAY WOULD NEED TO CONFIRM PLACEMENT FOR REPOSITIONING. THIS NURSE LEFT THE ROOM TO CALL X-RAY AND NOTIFY DR AVERY. WHEN THIS NURSE ENTERED ROOM AGAIN, PT SIGNIFICANT OTHER WAS PUSHING NG TUBE BACK INTO PT NOSE. THIS NURSE EDUCATED PT SIGNIFICANT OTHER TO NOT TOUCH THE NG TUBE AND TO LET THE NURSE HOLD IT UNTIL X-RAY GETS BACK. 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 I KNOW WHAT I AM DOING. THIS NURSE ACKNOWLEDGED SIGNIFICANT OTHERS COMMENT AND CONTINUED TO HOLD NG TUBE IN PLACE. AFTER X-RAY WAS COMPLETE, IT WAS DETERMINED THAT THE NG TUBE WAS PUSHED TOO FAR INTO PT NOSE AND WAS KINKED IN THE STOMACH. THIS NURSE TOOK OUT NG TUBE AND REPLACED IT. PLACEMENT WAS CONFIRMED BY X-RAY.
== END 2023-08-08 20:35 | disposition short-term general hospital (02) ==
PROVIDERS: Emergency Provider Family Medicine
DX: K56.600 Partial intestinal obstruction, unspecified as to cause (principal); N99.523 Herniation of incontinent stoma of urinary tract; Z20.822 Contact with and (suspected) exposure to COVID-19
CPT/HCPCS: 36415; 36416; 71045; 74176; 80053; 80076; 82962; 83605; 85025; 87040; 87486; 87581; 87633; 93005; 96361; 96365; 96375; 96376; 99285; J0131; J2060; J2270; J2405; J7030

== ENCOUNTER 2023-08-12 15:07 | Outpatient (CLI) | payer MEDICARE, MEDICAID, SELFPAY ==
[2023-08-12] MEDS: gadobenate dimeglumine 20 mL vial IV (15:51)
--- NOTE | 2023-08-12 16:45 | MR_ITS ---
WS: [id number] MRI LUMBAR SPINE WITH CONTRAST TECHNIQUE: Sagittal T1, T2 and STIR imaging. Axial T1 and T2 imaging. Post gadolinium imaging was obt ained. CLINICAL INFORMATION: M54.16 - Radiculopathy, lumbar region COMPARISON: None. FINDINGS: Mild lumbar curve. No acute compression. Disc bulging worse at L1-L3. L1-L2: Mild annular bulging. Slight narrowing of the subarticular recess bilaterally. Mild facet arth ropathy. Mild RIGHT foraminal narrowing. L2-L3: Mild disc bulging with moderate facet arthropathy. Mild central canal stenosis. Mild LEFT fora angel narrowing. L3-L4: Mild disc bulging with moderate central canal stenosis. Moderate facet arthropathy. Moderate R IGHT and mild LEFT foraminal narrowing. L4-L5: Mild annular bulging. Moderate facet arthropathy. Spinal canal and foramen are patent. L5-S1: No significant disc bulging. Moderate facet arthropathy. Spinal canal and foramen are patent. Visualized pelvic bony structures: Normal. Paravertebral soft tissues: Normal. MR/MR lumbar spine wo/w con [id number] IMPRESSION: 1. Mild lumbar curve. No acute compression. 2. Moderate central canal stenosis L3-4. 3. Mild central canal stenosis L2-3. 4. Small RIGHT foraminal protrusion L3-4 with moderate RIGHT foraminal narrowi ng. 5. Moderate facet arthropathy L3-L5.
== END 2023-08-12 15:08 | disposition home or self-care (01) ==
LOC: RAD 15:08
PROVIDERS: Visit Provider Anesthesiology Pain Medicine
DX: M54.16 Radiculopathy, lumbar region (principal); M48.061 Spinal stenosis, lumbar region without neurogenic claudication; M99.63 Osseous and subluxation stenosis of intervertebral foramina of lumbar region; M47.896 Other spondylosis, lumbar region
CPT/HCPCS: 72158; A9577

== ENCOUNTER → 2023-08-31 12:46 | Outpatient (BNVA) | payer MEDICARE, MEDICAID, SELFPAY | PROVIDERS: PCP Family Medicine; Visit Provider Anesthesiology Pain Medicine | DX: E11.40 Type 2 diabetes mellitus with diabetic neuropathy, unspecified; M51.16 Intervertebral disc disorders with radiculopathy, lumbar region; M51.26 Other intervertebral disc displacement, lumbar region; Z79.84 Long term (current) use of oral hypoglycemic drugs; Z79.4 Long term (current) use of insulin | CPT/HCPCS: 99214 ==

== ENCOUNTER → 2023-09-09 15:58 | Outpatient (BNVA) | payer MEDICARE, MEDICAID, SELFPAY | PROVIDERS: PCP Family Medicine; Visit Provider Orthopaedic Surgery | DX: M51.16 Intervertebral disc disorders with radiculopathy, lumbar region (principal); M48.062 Spinal stenosis, lumbar region with neurogenic claudication | CPT/HCPCS: 72110; 99204 ==

== ENCOUNTER 2023-09-17 20:28 | Emergency (ER) | payer MEDICARE, MEDICAID, SELFPAY ==
[2023-09-17 20:31] VITALS: BP 157/94; PULSE 107; RESP 20; TEMP 36.6; O2SAT 97; BMI 31.1
--- NOTE | 2023-09-17 20:42 | XRR_ITS ---
PROCEDURE INFORMATION: Exam: XR Abdomen Exam date and time: 09/17/2023 9:05 PM Age: 73 years old Clinical indication: Abdominal pain; Prior surgery; Surgery date: 6+ months; Surgery type: Urostomy TECHNIQUE: Imaging protocol: Radiologic exam of the abdomen. Views: 2 Views. Upright and supine views. COMPARISON: CT abdomen pelvis con [id number] 08/08/2023 10:32 AM FINDINGS: Lungs: Small amount of opacity left lung base could indicate mild atelectasis and/or small amount of infiltrate. Remainder of the lungs are clear. Pleural spaces: No pleural effusion or pneumothorax. Heart/Mediastinum: No significant cardiomegaly. Gastrointestinal tract: A mixed bowel gas pattern is suggested including small and large bowel. Borderline appearance of a few of the small bowel segments. Suggestion of a stoma right lower quadrant/pelvic region. Upright exam demonstrates several scattered air-fluid levels. Intraperitoneal space: Postsurgical clips right upper quadrant and pelvic region. No indication of free air. Bones/joints: Visualized osseous structures show no acute abnormality. XR/XR acute abdomen series [id number] IMPRESSION: 1. Small amount of left basilar opacity, mild atelectasis and/or small amount of infiltrate. 2. Postsurgical changes right upper quadrant of the abdomen and pelvis, along with stoma in the right lower quadrant/pelvis. 3. Mixed bowel gas pattern with a few borderline small bowel segments, along with several scattered air-fluid levels, ileus versus partial or low-grade obstruction. Follow-up suggested.
--- NOTE | 2023-09-17 20:45 | W.ED.NAVMDI ---
HPI - Nausea/Vomiting/Diarrhea General: Chief complaint: Nausea/Vomiting/Diarrhea Stated complaint: N/V Time Seen by Provider: 09/17/23 20:39 History of Present Illness: 73-year-old man with history of multiple abdominal surgeries diabetes and chronic kidney disease who presents to the emergency room with nausea and vomiting with some diarrhea. His friend who is with him had similar symptoms. Thinks he may have eaten some bad fish. Review of Systems Narrative: Constitutional symptoms: Negative except as documented in HPI. Skin symptoms: Negative except as documented in HPI. Eye symptoms: Negative except as documented in HPI. ENMT symptoms: Negative except as documented in HPI. Respiratory symptoms: Negative except as documented in HPI. Cardiovascular symptoms: Negative except as documented in HPI. Gastrointestinal symptoms: Negative except as documented in HPI. Genitourinary symptoms: Negative except as documented in HPI. Musculoskeletal symptoms: Negative except as documented in HPI. Neurologic symptoms: Negative except as documented in HPI. Psychiatric symptoms: Negative except as documented in HPI. Endocrine symptoms: Negative except as documented in HPI. PFSH ED PFSH: Medical History Hypotension Sepsis Acute renal failure Enterocolitis 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 BG well controlled with scheduled insulin -consistent carb diet as tolerated Parastomal hernia Pyelonephritis -UA indicative of infection -evidence of mild focal R pyelonephritis on CT -urine cx: Klebsiella oxytoca, sensitivity noted -blood cx: 2/2 bottles positive for klebsiella oxytoca; repeat set prelim negative -associated sepsis given tachycardia, leukocytosis, fever, pro-calcitonin elevated (1.35). Sepsis now resolved -continue to monitor vital signs; stable -minimal leukocytosis -has urostomy secondary to hx of bladder cancer; continue to monitor urine output -continue Ceftriaxone; will d/c on levaquin -off IVF as oral intake has improved PETER (obstructive sleep apnea) History of bladder cancer Diabetes mellitus -insulin dependent Hx of intestinal obstruction Surgical History History of cholecystectomy History of shoulder surgery History of urostomy History of esophageal hernia repair Family History Other Hypertension Social History Smoking and tobacco/nicotine status: never used tobacco/nicotine Alcohol intake: former Substance/Drug Use: never Marital status: / Current occupational status: disabled Current gender identity: Male Physical Exam Narrative: EXAM NARRATIVE: General: Alert, no acute distress. Skin: Warm, dry. Head: Normocephalic, atraumatic. Neck: Supple, trachea midline. Eye: Extraocular movements are intact. Ears, nose, mouth and throat: Tacky oral mucosa Cardiovascular: Regular, Normal peripheral perfusion. Respiratory: Lungs are clear to auscultation, respirations are non-labored, breath sounds are equal, Symmetrical chest wall expansion. Gastrointestinal: Soft, diffuse nonfocal tenderness,, Non distended Musculoskeletal: Normal ROM, no deformity. Neurological: Alert and oriented, No focal neurological deficit observed. Psychiatric: Cooperative, appropriate mood & affect. Course Vital Signs: Vital signs: Vital Signs Temperature 97.8 F 09/17/23 20:31 Pulse Rate 107 H 09/17/23 20:31 Respiratory Rate 20 H 09/17/23 20:31 Blood Pressure 157/94 09/17/23 20:31 Pulse Oximetry 97 09/17/23 20:31 MDM - Nausea/Vomiting/Diarrhea Medical Decision Making Medical decision making: Differential diagnosis including but not limited to and based on the above HPI, review of systems and physical exam: Concern for bowel obstruction, renal failure, food poisoning, gastroenteritis Orders placed to evaluate differential diagnosis based on the above differential, HPI and physical exam Lab Review: Laboratory results were reviewed and interpreted by myself the emergency room physician. Lab work is fairly unremarkable. Mild leukocytosis which is common for him. No renal failure. Acute abdominal series: chest x-ray: No acute process. No obvious infiltrates. No pneumothorax. No cardiomegaly. This was reviewed and interpreted by myself the emergency room physician. Radiologist report some atelectasis. Patient does not have any cough or fevers. I do not believe he has a pneumonia. Abdomen x-ray: Nonspecific bowel gas pattern. No evidence of free air or obstruction. This was reviewed and interpreted by myself the emergency room physician. Radiologist suggest that he could have a low grade small bowel obstruction. However he seems much improved with pain meds. Appears to have bowel gas throughout the abdomen. I reviewed the patient's medical record. Reexamination: Patient says he feels quite a bit better. Pain is improved. Vomiting improved. Assessment and plan: Viral gastroenteritis dehydration ?Normal saline bolus, Dilaudid and Zofran. - Discharged home - Discussed plan with patient. Answered any questions. - Evaluation and treatment of this problem were appropriate in the emergency setting. Lab Data 09/17/23 20:38 09/17/23 21:25 Radiology Impressions Chest/Abdomen X-ray 09/17/23 20:42 IMPRESSION: 1. Small amount of left basilar opacity, mild atelectasis and/or small amount of infiltrate. 2. Postsurgical changes right upper quadrant of the abdomen and pelvis, along with stoma in the right lower quadrant/pelvis. 3. Mixed bowel gas pattern with a few borderline small bowel segments, along with several scattered air-fluid levels, ileus versus partial or low-grade obstruction. Follow-up suggested. Laboratory Results WBC 14.43 10^3/uL (3.29-11.43) H 09/17/23 20:38 RBC 5.52 10^6/uL (3.85-5.65) 09/17/23 20:38 Hgb 16.70 g/dL (11.27-16.99) 09/17/23 20:38 Hct 49.2 % (37-53) 09/17/23 20:38 MCV 89.1 fl (82-101) 09/17/23 20:38 MCH 30.3 pg (27-33) 09/17/23 20:38 MCHC 33.9 g/dL (30-55) 09/17/23 20:38 RDW 13.5 % (12.1-15.1) 09/17/23 20:38 Plt Count 179 10^3/cmm (157-399) 09/17/23 20:38 MPV 11.5 fL (7.4-10.4) H 09/17/23 20:38 Neut % (Auto) 78.8 % 09/17/23 20:38 Lymph % (Auto) 12.8 % 09/17/23 20:38 [place] % (Auto) 6.6 % 09/17/23 20:38 Eos % (Auto) 1.0 % 09/17/23 20:38 Baso % (Auto) 0.3 % 09/17/23 20:38 Neut # (Auto) 11.37 10^3/uL (1.8-7.7) H 09/17/23 20:38 Lymph # (Auto) 1.8 10^3/uL (0.8-4.8) 09/17/23 20:38 [place] # (Auto) 1.0 10^3/uL (0.2-0.9) H 09/17/23 20:38 Eos # (Auto) 0.2 10^3/uL (0.0-0.8) 09/17/23 20:38 Baso # (Auto) 0.1 10^3/uL (0.0-0.1) 09/17/23 20:38 Nucleated RBC % (auto) 0 % 09/17/23 20:38 Nucleated RBCs # 0.0 /100WBC 09/17/23 20:38 Sodium 141 mmol/L (136-145) 09/17/23 21:25 Potassium 4.3 mmol/L (3.5-5.1) 09/17/23 21:25 Chloride Cancelled 09/17/23 20:38 Carbon Dioxide 29 mmol/L (22-29) 09/17/23 21:25 Anion Gap Cancelled 09/17/23 20:38 BUN Cancelled 09/17/23 20:38 Creatinine 1.2 mg/dL (0.7-1.2) 09/17/23 21:25 GFR Calculation Not Reportable 09/17/23 21:25 Glucose Cancelled 09/17/23 20:38 Calculated Osmolality Cancelled 09/17/23 20:38 Lactic Acid Cancelled 09/17/23 20:38 Calcium 10.0 mg/dL (8.5-10.5) 09/17/23 21:25 Total Bilirubin 0.5 mg/dL (0.15-1.2) 09/17/23 21:25 AST 12 U/L (0-40) 09/17/23 21:25 ALT 20 U/L (0-41) 09/17/23 21:25 Alkaline Phosphatase 101 U/L (40-130) 09/17/23 21:25 Total Protein 7.9 g/dL (6.6-8.7) 09/17/23 21:25 Albumin 4.3 g/dL (3.5-5.2) 09/17/23 21:25 Globulin 3.6 g/dL (1.3-4.6) 09/17/23 21:25 All radiology interpretation(s) finalized by discharge Discharge Plan Discharge Patient Disposition: Home Clinical Impression: Gastroenteritis, Dehydration Condition: Stable Prescriptions: New ondansetron 8 mg tablet,disintegrating 8 mg PO .q6 PRN (Reason: nausea and vomiting) Qty: 14 0RF No Action fluticasone propion-salmeterol [Advair Diskus] 500-50 mcg/dose blister with device 1 inh inhalation BID Qty: 60 12RF (DME) Wheel chair with elevated foot rest See Rx Instructions .Route .MEDSUPPLY Qty: 1 0RF Rx Instructions: As directed by HOME ([facility] [place]) Tamara HARDY See Rx Instructions .Route .MEDSUPPLY Qty: 1 0RF Rx Instructions: As directed by ceasar phillips fluticasone propionate [Flonase Allergy Relief] 50 mcg/actuation spray,suspension 1 spray intranasal DAILY PRN (Reason: nasal congestion) Qty: 16 0RF Rx Instructions: administer into each nostril gabapentin 300 mg capsule 300 mg PO TID Levemir FlexTouch U100 Insulin 100 unit/mL (3 mL) insulin pen 70 unit SUBCUT BID prednisone 20 mg tablet 20 mg PO DAILY Qty: 15 0RF Rx Instructions: 60mg for three days, 40mg for two days, 20mg for two days. ([facility] [place]) New tread for JAKI Boot See Rx Instructions .Route .MEDSUPPLY Qty: 1 0RF Rx Instructions: As directed by JUAN&O ([facility] [place]) CAM Boot See Rx Instructions .Route .MEDSUPPLY Qty: 1 0RF Rx Instructions: As directed ([facility] [place]) Diabetic shoes See Rx Instructions .ROUTE .MEDSUPPLY Qty: 1 0RF Rx Instructions: with custom molded accommodative orthotics the vane phillips albuterol sulfate 90 mcg/actuation HFA aerosol inhaler 2 inh INHALATION Q4H PRN (Reason: shortness of breath or wheezing) Qty: 18 0RF ropinirole 4 mg tablet 8 mg PO BID Qty: 180 3RF (DME) [place] Boot to the Right See Rx Instructions .Route .MEDSUPPLY Qty: 1 0RF Rx Instructions: As directed by JUAN&O midodrine 5 mg Tablet 5 mg PO BID PRN (Reason: Blood Pressure) paroxetine HCl 10 mg tablet 10 mg PO DAILY atorvastatin 10 mg tablet 10 mg PO DAILY metformin 1,000 mg tablet 1,000 mg PO BID lisinopril 10 mg tablet 10 mg PO DAILY Trulicity 1.5 mg/0.5 mL pen injector 0.5 mg SUBCUT Q7D Rx Instructions: ON WEDNESDAY Discharge Orders: Discharge ED (Routine); Ordered 09/17/23 Ordered By: Susie Dalton Referrals: Ivett Still MD [Primary Care Provider] - Discharge Diet: Advance as tolerated Discharge Activity: Increase activity as tolerated Patient Instructions: Acute Nausea and Vomiting (ED) Activity Restrictions/Additional Instructions: Thank you for choosing [facility] for your healthcare needs today. Please realize this is an emergency room and that we are providing you with a medical screening exam and this may not be complete and all inclusive of all the testing and or work up that you may need to determine your ailment or severity of your illness. You have been screened and evaluated and felt safe for discharge. Health conditions do change or evolve sometimes and as such it is important that you follow up with your Primary Doctor to be re checked, 3-5 days is a general good time frame for follow up. You are always welcome to return to the ED for re assessment if your symptoms are worsening or you have new concerns Coding Level of Care Code ED [employer] Pump Tender for Osiris Ansari
[2023-09-17 20:52] LABS: Basophils # 0.1 10^3/uL (0.0-0.1); Basophils % 0.3 %; Eosinophils # 0.2 10^3/uL (0.0-0.8); Hematocrit 49.2 % (37-53); Lymphocytes # 1.8 10^3/uL (0.8-4.8); Lymphocytes % 12.8 %; Mean Corpuscular HGB Conc 33.9 g/dL (30-55); Mean Corpuscular Hemoglobin 30.3 pg (27-33); Mean Corpuscular Volume 89.1 fl (82-101); Mean Platelet Volume 11.5 fL (7.4-10.4); Monocytes % 6.6 %; Neutrophils # 11.37 10^3/uL (1.8-7.7); Neutrophils % 78.8 %; Nucleated Red Blood Cells % 0 %; Platelet Count 179 10^3/cmm (157-399); Red Blood Count 5.52 10^6/uL (3.85-5.65); Red Cell Distribution Width 13.5 % (12.1-15.1); White Blood Count 14.43 10^3/uL (3.29-11.43)
[2023-09-17] MEDS: HYDROmorphone 1 mg/mL INJ 1 mL IVP (21:00)
[2023-09-17] MEDS: sodium chloride 0.9% 1,000 ML 999 ML IV (21:00)
[2023-09-17] MEDS: ondansetron 2 mg/ML SDV 2 mL 8 MG IVP ×2 (21:00→22:29)
[2023-09-17 21:56] LABS: Lactate (Lactic Acid level) 3.4 mmol/L (0.5-2.2)
[2023-09-17 21:57] LABS: Alanine Aminotransferase 20 U/L (0-41); Albumin Level 4.3 g/dL (3.5-5.2); Alkaline Phosphatase 101 U/L (40-130); Anion Gap 20.3 (5-19); Aspartate Amino Transferase 12 U/L (0-40); Blood Urea Nitrogen 28 mg/dL (8-23); Carbon Dioxide 29 mmol/L (22-29); Chloride 96 mmol/L (98-107); Creatinine Clr Calc Pharmacy 68.4659; Globulin 3.6 g/dL (1.3-4.6); Glucose 368 mg/dL (65-115); Osmolality Calculated 312 mOsm/kg (285-295); Potassium 4.3 mmol/L (3.5-5.1); Sodium 141 mmol/L (136-145); Total Bilirubin 0.5 mg/dL (0.15-1.2); Total Protein 7.9 g/dL (6.6-8.7)
[2023-09-17 22:19] VITALS: PULSE 98; RESP 16; O2SAT 93
[2023-09-17 22:42] VITALS: BP 157/94; PULSE 98; RESP 16; TEMP 36.6; O2SAT 93
== END 2023-09-17 22:43 | disposition home or self-care (01) ==
PROVIDERS: Emergency Provider Emergency Medicine; PCP Family Medicine
DX: K52.9 Noninfective gastroenteritis and colitis, unspecified (principal); E86.0 Dehydration; Z79.85 Long-term (current) use of injectable non-insulin antidiabetic drugs; Z79.4 Long term (current) use of insulin; Z79.84 Long term (current) use of oral hypoglycemic drugs; E11.22 Type 2 diabetes mellitus with diabetic chronic kidney disease; N18.2 Chronic kidney disease, stage 2 (mild); Z85.51 Personal history of malignant neoplasm of bladder
CPT/HCPCS: 36415; 74022; 80053; 83605; 85025; 96361; 96374; 96375; 96376; 99284; J1170; J2405; J7030

== ENCOUNTER 2023-09-18 08:27 | Emergency (ER) | payer MEDICARE, MEDICAID, SELFPAY ==
[2023-09-18] VITALS (12 sets, daily range): BP systolic 97–158; BP diastolic 57–92; PULSE 106–116; RESP 17–24; TEMP 36.8; O2SAT 91–99; BMI 29.8
--- NOTE | 2023-09-18 08:29 | ECG_ITS ---
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 Measurements Intervals [place] Rate: 115 P: 26 ID: [id number] QRS: -46 QRSD: 120 T: 12 QT: 346 QTc: 480 Interpretive Statements SINUS TACHYCARDIA INDETERMINATE AXIS RIGHT BUNDLE BRANCH BLOCK [120+ ms QRS DURATION, UPRIGHT V1, 40+ ms S IN I/aVL/V4/V5/V6] LEFT ANTERIOR FASCICULAR BLOCK [QRS AXIS <= -45, QR IN I, RS IN II] Compared to ECG 08/08/2023 10:59:01 Indeterminate axis now present Left anterior fascicular block now present Sinus rhythm no longer present Electronically Signed On 09-18-2023 19:08:15 CDT by Ha Cisneros M.D. [email or web address]
--- NOTE | 2023-09-18 08:29 | XRR_ITS ---
PROCEDURE INFORMATION: Exam: XR Chest Exam date and time: 09/18/2023 9:31 AM Age: 73 years old Clinical indication: Cough and dyspnea; Additional info: Dyspnea/cough TECHNIQUE: Imaging protocol: Radiologic exam of the chest. Views: 1 view. COMPARISON: CR (CHEST, ) 08/08/2023 5:40 PM FINDINGS: Lungs: There is mild left lower lobe atelectasis. Pleural spaces: Unremarkable. No pleural effusion. No pneumothorax. Heart/Mediastinum: Unremarkable. No cardiomegaly. Bones/joints: Unremarkable. XR/XR chest 1V portable [id number] IMPRESSION: Mild left lower lobe atelectasis
--- NOTE | 2023-09-18 08:30 | ED_ITS ---
HPI - Nausea/Vomiting/Diarrhea 2 General: Chief complaint: Abdominal Pain Stated complaint: vomiting, pain in stomach and lower back Time Seen by Provider: 09/18/23 08:28 Source: patient Mode of arrival: ambulatory History of Present Illness: 73-year-old male with a history of bladd er CA with a urostomy presents emergency room with nausea and vomiting. Patient was seen last he had a CT there is a question of ileus versus obstruction he improved with fluids and antiemetics and was discharged home. Overnight he has had no bowel movements or flatus. He has increasing abdominal pain bloating and gas. Denies fever he has had some vomiting. MD elicited complaint: nausea and vomiting Associated nausea: Yes Location of pain: None Radiation: diffuse Pain consistency: constant Quality: cramping Exacerbating factors: eating and vomiting Relieving factors: none Associated symtoms: Reports bloating and nausea; Denies anxiety, change in vision, chest pain, cough, diaphoresis, decreased urine output, dizziness, epistaxis, fatigue, fecal incontinence, fevers/chills, headache(s), anorexia, malaise, myalgias, numbness, palpitations, rash, short of breath, syncope, tenesmus, tinnitus or weakness Review of Systems 2 Const: Denies: fever(s), chills, fatigue, malaise or diaphoresis Eyes: Denies: change in vision ENMT: Denies: tinnitus or epistaxis Card: Denies: chest pain, palpitations or syncope Resp: Denies: dyspnea GI: Reports: nausea and bloating; Denies: abdominal pain or fecal incontinence : Denies: flank pain Musc: Denies: neck pain or back pain Skin/Breast: Denies: rash Neuro: Denies: headache(s) or dizziness Psych: Denies: anxiety PFSH ED 2 PFSH: Medical History Hypotension Sepsis Acute renal failure Enterocolitis 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 BG well controlled with scheduled insulin -consistent carb diet as tolerated Parastomal hernia Pyelonephritis -UA indicative of infection -evidence of mild focal R pyelonephritis on CT -urine cx: Klebsiella oxytoca, sensitivity noted -blood cx: 2/2 bottles positive for klebsiella oxytoca; repeat set prelim negative -associated sepsis given tachycardia, leukocytosis, fever, pro-calcitonin elevated (1.35). Sepsis now resolved -continue to monitor vital signs; stable -minimal leukocytosis -has urostomy secondary to hx of bladder cancer; continue to monitor urine output -continue Ceftriaxone; will d/c on levaquin -off IVF as oral intake has improved PETER (obstructive sleep apnea) History of bladder cancer Diabetes mellitus -insulin dependent Hx of intestinal obstruction Surgical History History of cholecystectomy History of shoulder surgery History of urostomy History of esophageal hernia repair Family History Other Hypertension Social History Smoking and tobacco/nicotine status: never used tobacco/nicotine Alcohol intake: former Substance/Drug Use: never Marital status: / Current occupational status: disabled Current gender identity: Male Physical Exam 2 Const: COMMON NORMALS: no acute distress GENERAL APPEARANCE: cooperative and comfortable ORIENTATION/CONSCIOUSNESS: Yes awake, Yes oriented to person, Yes oriented to place and Yes oriented to time HENMT: COMMON NORMALS: normocephalic, atraumatic and hearing grossly normal bilaterally HEAD & SCALP: normocephalic and atraumatic Resp: COMMON NORMALS: normal respiratory effort, No retractions, No use of accessory muscles and clear to auscultation bilaterally AUSCULTATION: clear to auscultation bilaterally Cardio: COMMON NORMALS: regular rate, regular rhythm and No murmurs present (Cardio) RATE: regular rate RHYTHM: regular rhythm GI: COMMON NORMALS: Soft to palpation and No hepatosplenomegaly present A USCULTATION: Yes normoactive bowel sounds PALPATION: Yes Soft to palpation, No Tenderness to palpation present (GI), No Guarding due to palpation present (GI) and Yes No hepatosplenomegaly present Extremity: COMMON NORMALS: normal to inspection, capillary refill normal, no clubbing, cyanosis or edema, no calf tenderness and no pedal edema Neuro: SENSORIUM/ORIENTATION: Yes oriented to person, Yes oriented to place and Yes oriented to time Skin: COMMON NORMALS: no rashes or lesions noted GENERAL SKIN EXAM: no rashes or lesions noted Course 2 Vital Signs: Vital signs: Vital Signs Temperature 98.3 F 09/18/23 08:42 Pulse Rate 109 H 09/18/23 13:30 Respiratory Rate 20 H 09/18/23 13:32 Blood Pressure 125/73 09/18/23 13:30 Pulse Oximetry 95 09/18/23 13:32 Oxygen Delivery Me thod Room Air 09/18/23 13:30 MDM - Nausea/Vomiting/Diarrhea Medical Decision Making Bowel obstruction with stomal hernia on the CT it also appears that there developing hydronephrosis suspected there may be a obstruction of the urostomy as well. Patient was given Zosyn and fluids. Lactic acid is Thumb blood pressure is stable. We do not have urology available. Will need urology services patient is previous had a similar episode and was sent back to [place]. Will transfer to [place] via ambulance discussed with patient also discussed with urology and hospitalist at receiving hospital. Medical Records I reviewed the patient's medical records. Lab Data I reviewed the patient's lab results. 09/18/23 08:42 09/18/23 08:42 Radiology Impressions Abdomen/Pelvis CT 09/18/23 08:55 IMPRESSION: 1. Postsurgical changes of cystectomy and right lower quadrant urinary diversion and ostomy with a large peristomal hernia with herniated loops of small bowel and the cecum with resultant small bowel obstruction. 2. Development of mild bilateral hydronephrosis and hydroureter suspicious for obstruction of the ileal conduit at the level of the hernia 3. Nonobstructing bilateral renal calculi ADDENDUM: 09/18/23 1028 COMMENT: THIS REPORT CONTAINS FINDINGS THAT MAY BE CRITICAL TO PATIENT CARE. The exam findings were verbally communicated by me to JORDY ARENAS via telephone conference at 10:27 AM CDT on 09/18/2023. The findings were acknowledged and understood. Chest X-Ray 09/18/23 10:44 IMPRESSION: 1. Placement of a nasogastric tube with its tip in the proximal stomach. 2. Unchanged mild left lower lobe atelectasis Laboratory Results WBC 13.55 10^3/uL (3.29-11.43) H 09/18/23 08:42 RBC 5.59 10^6/uL (3.85-5.65) 09/18/23 08:42 Hgb 17.00 g/dL (11.27-16.99) H 09/18/23 08:42 Hct 50.3 % (37-53) 09/18/23 08:42 MCV 90.0 fl (82-101) 09/18/23 08:42 MCH 30.4 pg (27-33) 09/18/23 08:42 MCHC 33.8 g/dL (30-55) 09/18/23 08:42 RDW 13.4 % (12.1-15.1) 09/18/23 08:42 Plt Count 189 10^3/cmm (157-399) 09/18/23 08:42 MPV 10.6 fL (7.4-10.4) H 09/18/23 08:42 Neut % (Auto) 83.4 % 09/18/23 08:42 Lymph % (Auto) 7.3 % 09/18/23 08:42 [place] % (Auto) 8.2 % 09/18/23 08:42 Eos % (Auto) 0.4 % 09/18/23 08:42 Baso % (Auto) 0.3 % 09/18/23 08:42 Neut # (Auto) 11.30 10^3/uL (1.8-7.7) H 09/18/23 08:42 Lymph # (Auto) 1.0 10^3/uL (0.8-4.8) 09/18/23 08:42 [place] # (Auto) 1.1 10^3/uL (0.2-0.9) H 09/18/23 08:42 Eos # (Auto) 0.1 10^3/uL (0.0-0.8) 09/18/23 08:42 Baso # (Auto) 0.0 10^3/uL (0.0-0.1) 09/18/23 08:42 Nucleated RBC % (auto) 0 % 09/18/23 08:42 Nucleated RBCs # 0.0 /100WBC 09/18/23 08:42 Sodium 140 mmol/L (136-145) 09/18/23 08:42 Potassium 4.5 mmol/L (3.5-5.1) 09/18/23 08:42 Chloride 91 mmol/L (98-107) L 09/18/23 08:42 Carbon Dioxide 32 mmol/L (22-29) H 09/18/23 08:42 Anion Gap 21.5 (5-19) H 09/18/23 08:42 BUN 31 mg/dL (8-23) H 09/18/23 08:42 Creatinine 1.5 mg/dL (0.7-1.2) H 09/18/23 08:42 GFR Calculation Not Reportable 09/18/23 08:42 Glucose 443 mg/dL (65-115) H 09/18/23 08:42 Calculated Osmolality 316 mOsm/kg (285-295) H 09/18/23 08:42 Lactic Acid 6.0 mmol/L (0.5-2.2) H* 09/18/23 08:42 Lactic Acid (Sepsis) 4.5 mmol/L (0.5-2.2) H* 09/18/23 13:00 Calcium 10.1 mg/dL (8.5-10.5) 09/18/23 08:42 Total Bilirubin 0.7 mg/dL (0.15-1.2) 09/18/23 08:42 AST 14 U/L (0-40) 09/18/23 08:42 ALT 20 U/L (0-41) 09/18/23 08:42 Alkaline Phosphatase 105 U/L (40-130) 09/18/23 08:42 Total Protein 8.1 g/dL (6.6-8.7) 09/18/23 08:42 Albumin 4.3 g/dL (3.5-5.2) 09/18/23 08:42 Globulin 3.8 g/dL (1.3-4.6) 09/18/23 08:42 Lipase 25 U/L (13-60) 09/18/23 08:42 Urine Color Yellow (Yellow) 09/18/23 11:20 Urine Appearance Cloudy (CLEAR) A 09/18/23 11:20 Urine pH 9 (5-7) H 09/18/23 11:20 Ur Specific [place] 1.015 (1.005-1.030) 09/18/23 11:20 Urine Protein 1+ (Negative) H 09/18/23 11:20 Urine Glucose (UA) 4+ (Normal) H 09/18/23 11:20 Urine Ketones Negative (Negative) 09/18/23 11:20 Urine Blood 2+ (Negative) H 09/18/23 11:20 Urine Nitrate Positive (Negative) A 09/18/23 11:20 Urine Bilirubin Neg (Negative) 09/18/23 11:20 Urine Urobilinogen Norm mg/dL (Negative) 09/18/23 11:20 Ur Leukocyte Esterase 1+ (Negative) H 09/18/23 11:20 Urine RBC 0-4 /hpf (0-2) H 09/18/23 11:20 Urine WBC 15-25 /hpf (0-5) H 09/18/23 11:20 Ur Squamous Epith Cells 5-10 /hpf (0-5) H 09/18/23 11:20 Amorphous Sediment Not Reportable 09/18/23 11:20 Urine Bacteria 4+ /hpf (NONE) H 09/18/23 11:20 All radiology interpretation(s) finalized by discharge Discharge Plan Discharge Condition: Stable Prescriptions: No Action fluticasone propion-salmeterol [Advair Diskus] 500-50 mcg/dose blister with device 1 inh inhalation BID Qty: 60 12RF (DME) Wheel chair with elevated foot rest See Rx Instructions .Route .MEDSUPPLY Qty: 1 0RF Rx Instructions: As directed by HOME (DME) Tamara HARDY See Rx Instructions .Route .MEDSUPPLY Qty: 1 0RF Rx Instructions: As directed by ceasar phillips fluticasone propionate [Flonase Allergy Relief] 50 mcg/actuation spray,suspension 1 spray intranasal DAILY PRN (Reason: nasal congestion) Qty: 16 0RF Rx Instructions: administer into each nostril gabapentin 300 mg capsule 300 mg PO TID Levemir FlexTouch U100 Insulin 100 unit/mL (3 mL) insulin pen 70 unit SUBCUT BID prednisone 20 mg tablet 20 mg PO DAILY Qty: 15 0RF Rx Instructions: 60mg for three days, 40mg for two days, 20mg for two days. (DME) Shane tread for JAKI Boot See Rx Instructions .Route .MEDSUPPLY Qty: 1 0RF Rx Instructions: As directed by JUAN&O (DME) IRVIN Walker See Rx Instructions .Route .MEDSUPPLY Qty: 1 0RF Rx Instructions: As directed (DME) Diabetic shoes See Rx Instructions .ROUTE .MEDSUPPLY Qty: 1 0RF Rx Instructions: with custom molded accommodative orthotics the shokenny arshadys albuterol sulfate 90 mcg/actuation HFA aerosol inhaler 2 inh INHALATION Q4H PRN (Reason: shortness of breath or wheezing) Qty: 18 0RF ropinirole 4 mg tablet 8 mg PO BID Qty: 180 3RF (DME) [place] Boot to the Right See Rx Instructions .Route .MEDSUPPLY Qty: 1 0RF Rx Instructions: As directed by JUAN&O midodrine 5 mg Tablet 5 mg PO BID PRN (Reason: Blood Pressure) paroxetine HCl 10 mg tablet 10 mg PO DAILY atorvastatin 10 mg tablet 10 mg PO DAILY metformin 1,000 mg tablet 1,000 mg PO BID lisinopril 10 mg tablet 10 mg PO DAILY Trulicity 1.5 mg/0.5 mL pen injector 0.5 mg SUBCUT Q7D Rx Instructions: ON WEDNESDAY ondansetron 8 mg tablet,disintegrating 8 mg PO .q6 PRN (Reason: nausea and vomiting) Qty: 14 0RF Referrals: Ivett Still MD [Primary Care Provider] - Coding Level of Care Code ED Family Law Specialist for Osiris Ansari
[2023-09-18] MEDS: sodium chloride 0.9% 1,000 ML 999 ML IV (08:46)
[2023-09-18] MEDS: ondansetron 2 mg/ML SDV 2 mL 4 MG IVP (08:47)
--- NOTE | 2023-09-18 08:55 | CTR_ITS ---
PROCEDURE INFORMATION: Exam: CT Abdomen And Pelvis With Contrast Exam date and time: 09/18/2023 9:27 AM Age: 73 years old Clinical indication: Abdominal pain; Generalized; Prior surgery; Surgery date: 6+ months; Surgery type: Colostomy; Additional info: Abd pain TECHNIQUE: Imaging protocol: Computed tomography of the abdomen and pelvis with contrast. Radiation optimization: All CT scans at this facility use at least one of these dose optimization techniques: automated exposure control; mA and/or kV adjustment per patient size (includes targeted exams where dose is matched to clinical indication); or iterative reconstruction. Contrast material: OMNI 350; Contrast volume: 100 ml; Contrast route: INTRAVENOUS (IV); COMPARISON: CT abdomen pelvis wo con [id number] 08/08/2023 10:32 AM RADIATION DOSE METRICS: Total DLP (mGy-cm): 1054.9 FINDINGS: Lungs: There is linear left lower lobe atelectasis. Liver: Normal. No mass. Gallbladder and biliary ducts: The gallbladder is surgically absent. There is no significant biliary ductal dilatation. Pancreas: Normal. No ductal dilation. Spleen: Normal. No splenomegaly. Adrenal glands: Normal. No mass. Kidneys and ureters: There has been development of mild bilateral hydronephrosis and hydroureter extending to a right lower quadrant urinary diversion without evidence of obstructing ureteral calculus. There are nonobstructing bilateral renal calculi. Stomach and bowel: See Urinary bladder finding. Appendix: No evidence of appendicitis. Intraperitoneal space: Unremarkable. No free air. No significant fluid collection. Vasculature: There are moderate atherosclerotic vascular calcifications.. No abdominal aortic aneurysm. Lymph nodes: Unremarkable. No enlarged lymph nodes. Urinary bladder: There are postsurgical changes of cystectomy and right lower quadrant ileal conduit with a right lower quadrant ostomy noted. There is a [id number] peristomal hernia with herniated loops of small bowel with fecalization of bowel contents within the hernia. The small bowel proximal to this area is dilated with multiple air-fluid levels noted. The stomach is also distended with fluid. Note is again made of herniation of the cecum into the peristomal hernia with decompression of the ascending colon distal to the hernia. Reproductive: The prostate gland is surgically absent Bones/joints: Unremarkable. No acute fracture. Soft tissues: Unremarkable. CT/CT abdomen pelvis w con* [id number] IMPRESSION: 1. Postsurgical changes of cystectomy and right lower quadrant urinary diversion and ostomy with a large peristomal hernia with herniated loops of small bowel and the cecum with resultant small bowel obstruction. 2. Development of mild bilateral hydronephrosis and hydroureter suspicious for obstruction of the ileal conduit at the level of the hernia 3. Nonobstructing bilateral renal calculi
[2023-09-18 09:05] LABS: Basophils % 0.3 %; Eosinophils # 0.1 10^3/uL (0.0-0.8); Eosinophils % 0.4 %; Hematocrit 50.3 % (37-53); Lymphocytes % 7.3 %; Mean Corpuscular HGB Conc 33.8 g/dL (30-55); Mean Corpuscular Hemoglobin 30.4 pg (27-33); Mean Platelet Volume 10.6 fL (7.4-10.4); Monocytes # 1.1 10^3/uL (0.2-0.9); Monocytes % 8.2 %; Neutrophils % 83.4 %; Nucleated Red Blood Cells % 0 %; Platelet Count 189 10^3/cmm (157-399); Red Blood Count 5.59 10^6/uL (3.85-5.65); Red Cell Distribution Width 13.4 % (12.1-15.1); White Blood Count 13.55 10^3/uL (3.29-11.43)
[2023-09-18] MEDS: sodium chloride 0.9% 2,328 ML 2328 ML IV (09:15)
[2023-09-18] MEDS: morphine 4 mg/mL SDV 1 mL IVP (09:16)
[2023-09-18 09:25] LABS: Alanine Aminotransferase 20 U/L (0-41); Albumin Level 4.3 g/dL (3.5-5.2); Alkaline Phosphatase 105 U/L (40-130); Anion Gap 21.5 (5-19); Aspartate Amino Transferase 14 U/L (0-40); Blood Urea Nitrogen 31 mg/dL (8-23); Calcium 10.1 mg/dL (8.5-10.5); Carbon Dioxide 32 mmol/L (22-29); Chloride 91 mmol/L (98-107); Globulin 3.8 g/dL (1.3-4.6); Glucose 443 mg/dL (65-115); Lipase 25 U/L (13-60); Osmolality Calculated 316 mOsm/kg (285-295); Potassium 4.5 mmol/L (3.5-5.1); Sodium 140 mmol/L (136-145); Total Bilirubin 0.7 mg/dL (0.15-1.2); Total Protein 8.1 g/dL (6.6-8.7)
[2023-09-18 09:26] LABS: Creatinine Clr Calc Pharmacy 53.6471
[2023-09-18] MEDS: iohexol 350 mg/mL 500 mL Btl (per mL) IV (09:30)
--- NOTE | 2023-09-18 10:44 | XRR_ITS ---
PROCEDURE INFORMATION: Exam: XR Chest Exam date and time: 09/18/2023 10:58 AM Age: 73 years old Clinical indication: Device placement; Ng tube; Additional info: Ng tube placement TECHNIQUE: Imaging protocol: Radiologic exam of the chest. Views: 1 view. COMPARISON: CR (CHEST, ) 09/18/2023 9:31 AM FINDINGS: Tubes, catheters and devices: There has been interval placement of a nasogastric tube with its tip in the proximal stomach. Lungs: There is unchanged mild left lower lobe atelectasis. No consolidation. Pleural spaces: Unremarkable. No pleural effusion. No pneumothorax. Heart/Mediastinum: Unremarkable. No cardiomegaly. Bones/joints: Unremarkable. XR/XR chest 1V portable [id number] IMPRESSION: 1. Placement of a nasogastric tube with its tip in the proximal stomach. 2. Unchanged mild left lower lobe atelectasis
--- NOTE | 2023-09-18 11:03 | PC.NURSE ---
1000cc riley colored fluid returned from NG tube, new suction canister placed. Pt tolerated procedure well
[2023-09-18 11:48] LABS: Reflex Lactate Order REFLEX LACTIC ORDERD
[2023-09-18 12:18] LABS: Glucose Urine UA 4+ (Normal); Protein Urine 1+ (Negative); Specific Gravity, Urine 1.015 (1.005-1.030); Urine Appearance Cloudy (CLEAR); Urine Color Yellow (Yellow)
[2023-09-18 12:19] LABS: Add Urine Microscopic? YES; Bilirubin Urine Neg (Negative); Blood Urine 2+ (Negative); Ketones Urine Negative (Negative); Leukocyte Esterase Urine 1+ (Negative); Nitrate Urine Positive (Negative); RBC Urine 0-4 /hpf (0-2); Urobilinogen Urine Norm (Negative); WBC Urine 15-25 /hpf (0-5); pH Urine 9 (5-7)
[2023-09-18 12:20] LABS: Add Urine Culture? Yes; Bacteria Urine 4+ /hpf
[2023-09-18] MEDS: meropenem 1,000 MG in sodium chloride 0.9% (plus) 50 ML 100 MG IV (12:59)
[2023-09-18] MEDS: morphine 4 mg/mL SDV 1 mL 2 MG IVP (13:32)
[2023-09-18 13:40] LABS: Lactic Acid level (Lactate) 4.5 mmol/L (0.5-2.2)
[2023-09-18] MEDS: sodium chloride 0.9% 1,000 ML 100 ML IV (14:48)
[2023-09-18] MEDS: acetaminophen 1,000 MG/100 ML PIGGYBACK 400 MG IV (14:49)
--- NOTE | 2023-09-18 16:14 | PC.NURSE ---
DURING PT STAY IN ER, A TOTAL OF APPROXIMATELY 3,000CC OF NG FLUID WAS PULLED OFF PT.
[2023-09-19 02:24] LABS: Acinetobacter baumannii Not Detected (NOT DETECT); Bacteroides fragilis Not Detected (NOT DETECT); Citrobacter Not Detected (NOT DETECT); Cronobacter sakazakii Not Detected (NOT DETECT); Enterobacter cloacae complex Not Detected (NOT DETECT); Enterobacter non cloacae Not Detected (NOT DETECT); Fusobacterium necrophorum Not Detected (NOT DETECT); Fusobacterium nucleatum Not Detected (NOT DETECT); Haemophilus influenzae Not Detected (NOT DETECT); Klebsiella pneumoniae group Not Detected (NOT DETECT); Morganella morganii Not Detected (NOT DETECT); Neisseria meningitidis Not Detected (NOT DETECT); Pan Candida Not Detected (NOT DETECT); Pan Gram-Positive Not Detected (NOT DETECT); Proteus mirabilis Not Detected (NOT DETECT); Pseudomonas aeruginosa Not Detected (NOT DETECT); Salmonella Not Detected (NOT DETECT); Serratia Not Detected (NOT DETECT); Serratia marcescens Not Detected (NOT DETECT); Stenotrophomonas maltophilia Not Detected (NOT DETECT)
== END 2023-09-18 16:18 ==
PROVIDERS: Emergency Provider Family Medicine; PCP Family Medicine
DX: R10.9 Unspecified abdominal pain (principal); Z79.85 Long-term (current) use of injectable non-insulin antidiabetic drugs; Z79.84 Long term (current) use of oral hypoglycemic drugs; Z79.4 Long term (current) use of insulin; E11.22 Type 2 diabetes mellitus with diabetic chronic kidney disease; N18.2 Chronic kidney disease, stage 2 (mild); Z85.51 Personal history of malignant neoplasm of bladder
CPT/HCPCS: 36415; 71045; 74177; 80053; 81001; 83605; 83690; 85025; 87040; 87077; 87086; 87150; 87186; 87205; 93005; 96361; 96365; 96367; 96375; 96376; 99285; J0131; J2185; J2270; J2405; J7030; Q9967

== ENCOUNTER 2023-09-29 18:43 | Emergency (ER) | payer MEDICARE, MEDICAID, SELFPAY ==
[2023-09-29 18:48] VITALS: BP 143/79; PULSE 97; RESP 14; TEMP 36.6; O2SAT 95
--- NOTE | 2023-09-29 18:55 | W.ED.MALEGU ---
HPI - Male Genitourinary General: Chief complaint: Urogenital-Male Stated complaint: catheter came out Time Seen by Provider: 09/29/23 18:54 History of Present Illness: 73-year-old male patient comes in today for the displacement of the catheter from his urostomy site. Patient had to have his bladder removed and has a urostomy. Patient had developed a ventral hernia along the surgical site and concern for it obstructing the urostomy outlet a Joyner catheter was placed. The Joyner catheter displaced. Patient has clear urine in the urostomy bag without any signs of significant cloudiness or blood. Patient denies any pain. Urine actively releases from the urostomy. Review of Systems General: Reports: 10 or more systems reviewed and unremarkable except in HPI and below PFSH ED PFSH: Medical History Hypotension Sepsis Acute renal failure Enterocolitis 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 BG well controlled with scheduled insulin -consistent carb diet as tolerated Parastomal hernia Pyelonephritis -UA indicative of infection -evidence of mild focal R pyelonephritis on CT -urine cx: Klebsiella oxytoca, sensitivity noted -blood cx: 2/2 bottles positive for klebsiella oxytoca; repeat set prelim negative -associated sepsis given tachycardia, leukocytosis, fever, pro-calcitonin elevated (1.35). Sepsis now resolved -continue to monitor vital signs; stable -minimal leukocytosis -has urostomy secondary to hx of bladder cancer; continue to monitor urine output -continue Ceftriaxone; will d/c on levaquin -off IVF as oral intake has improved PETER (obstructive sleep apnea) History of bladder cancer Diabetes mellitus -insulin dependent Hx of intestinal obstruction Surgical History History of cholecystectomy History of shoulder surgery History of urostomy History of esophageal hernia repair Family History Other Hypertension Social History Smoking and tobacco/nicotine status: never used tobacco/nicotine Alcohol intake: former Substance/Drug Use: never Marital status: / Current occupational status: disabled Current gender identity: Male Physical Exam Const: COMMON NORMALS: alert HENMT: COMMON NORMALS: normocephalic HEAD & SCALP: normocephalic Resp: COMMON NORMALS: normal respiratory effort Cardio: COMMON NORMALS: regular rate RATE: regular rate GI: OTHER: Right lower quadrant has a urostomy draining clear urine. Patient has significant ventral scarring. Extremity: COMMON NORMALS: normal to inspection Neuro: SENSORIUM/ORIENTATION: Yes alert Skin: COMMON NORMALS: turgor normal GENERAL SKIN EXAM: turgor normal Course Vital Signs: Vital signs: Vital Signs Temperature 97.8 F 09/29/23 18:48 Pulse Rate 97 09/29/23 18:48 Respiratory Rate 14 09/29/23 18:48 Blood Pressure 143/79 09/29/23 18:48 Pulse Oximetry 95 09/29/23 18:48 Oxygen Delivery Me thod Room Air 09/29/23 18:48 MDM - Male Medical Decision Making 73-year-old male patient comes in today for complaints of displacement of Joyner catheter from urostomy site. Patient had the Joyner catheter placed into his urostomy for concerns of a stricture or obstruction of the urostomy due to a ventral hernia along a surgical incision. At this time the urine is draining without difficulty from the urostomy. Vital signs are normal. Reviewed exam with patient recommended follow-up with surgeon in the morning to see if they want to replace the Joyner catheter. At this time with the urine actively draining from the site I do not see the risk-benefit for replacing the catheter. Recommended patient monitor for fever or blood in the urine. Patient reported understanding and agreed to plan. No radiology studies performed this visit Discharge Plan Discharge Patient Disposition: Home Clinical Impression: Complication of urostomy Condition: Stable Prescriptions: No Action fluticasone propion-salmeterol [Advair Diskus] 500-50 mcg/dose blister with device 1 inh inhalation BID Qty: 60 12RF (DME) Wheel chair with elevated foot rest See Rx Instructions .Route .MEDSUPPLY Qty: 1 0RF Rx Instructions: As directed by HOME (DME) Tamara HARDY See Rx Instructions .Route .MEDSUPPLY Qty: 1 0RF Rx Instructions: As directed by ceasar phillips fluticasone propionate [Flonase Allergy Relief] 50 mcg/actuation spray,suspension 1 spray intranasal DAILY PRN (Reason: nasal congestion) Qty: 16 0RF Rx Instructions: administer into each nostril gabapentin 300 mg capsule 300 mg PO TID Levemir FlexTouch U100 Insulin 100 unit/mL (3 mL) insulin pen 70 unit SUBCUT BID prednisone 20 mg tablet 20 mg PO DAILY Qty: 15 0RF Rx Instructions: 60mg for three days, 40mg for two days, 20mg for two days. (DME) New tread for [place] Boot See Rx Instructions .Route .MEDSUPPLY Qty: 1 0RF Rx Instructions: As directed by JUAN&O ([facility] [place] CAM Boot See Rx Instructions .Route .MEDSUPPLY Qty: 1 0RF Rx Instructions: As directed (DME) Diabetic shoes See Rx Instructions .ROUTE .MEDSUPPLY Qty: 1 0RF Rx Instructions: with custom molded accommodative orthotics the vane phillips albuterol sulfate 90 mcg/actuation HFA aerosol inhaler 2 inh INHALATION Q4H PRN (Reason: shortness of breath or wheezing) Qty: 18 0RF ropinirole 4 mg tablet 8 mg PO BID Qty: 180 3RF (DME) [place] Boot to the Right See Rx Instructions .Route .MEDSUPPLY Qty: 1 0RF Rx Instructions: As directed by JUAN&Aissatou midodrine 5 mg Tablet 5 mg PO BID PRN (Reason: Blood Pressure) paroxetine HCl 10 mg tablet 10 mg PO DAILY atorvastatin 10 mg tablet 10 mg PO DAILY metformin 1,000 mg tablet 1,000 mg PO BID lisinopril 10 mg tablet 10 mg PO DAILY Trulicity 1.5 mg/0.5 mL pen injector 0.5 mg SUBCUT Q7D Rx Instructions: ON WEDNESDAY ondansetron 8 mg tablet,disintegrating 8 mg PO .q6 PRN (Reason: nausea and vomiting) Qty: 14 0RF Discharge Orders: Discharge ED (Routine); Ordered 09/29/23 Ordered By: James Mason Referrals: Ivett Still MD [Primary Care Provider] - Discharge Diet: Advance as tolerated Discharge Activity: Resume usual activity Patient Instructions: Urostomy Care (ED) Activity Restrictions/Additional Instructions: Follow-up with surgeon tomorrow regarding displacement of catheter from urostomy. Recommend return to ER for fever greater than 100.4 or blood in urine. Coding Level of Care Code ED Pilot Boat Deckhand for Osiris Ansari
== END 2023-09-29 19:06 | disposition home or self-care (01) ==
PROVIDERS: Emergency Provider Nurse Practitioner Family; PCP Family Medicine
DX: T83.028A Displacement of other urinary catheter, initial encounter (principal); Y73.2 Prosthetic and other implants, materials and accessory gastroenterology and urology devices associated with adverse incidents; Z90.6 Acquired absence of other parts of urinary tract; K43.2 Incisional hernia without obstruction or gangrene
CPT/HCPCS: 99281

== ENCOUNTER 2023-10-04 06:00 | Outpatient (CLI) | payer MEDICARE, MEDICAID, SELFPAY | END 2023-10-04 06:01 | disposition home or self-care (01) | LOC: RAD 11-28 10:27 | PROVIDERS: PCP Family Medicine; Visit Provider Family Medicine | DX: E11.9 Type 2 diabetes mellitus without complications (principal); D64.9 Anemia, unspecified; G25.81 Restless legs syndrome | CPT/HCPCS: 80053; 80061; 82607; 82728; 83036; 84443 ==

== ENCOUNTER → 2023-10-13 14:20 | Outpatient (BNVA) | payer MEDICARE, MEDICAID, SELFPAY | PROVIDERS: PCP Family Medicine; Visit Provider Dermatology | DX: L57.0 Actinic keratosis (principal); L29.8 Other pruritus; L24.9 Irritant contact dermatitis, unspecified cause; D48.5 Neoplasm of uncertain behavior of skin; D69.2 Other nonthrombocytopenic purpura; L72.0 Epidermal cyst; Z85.828 Personal history of other malignant neoplasm of skin | CPT/HCPCS: 11102; 17000; 99214 ==

== ENCOUNTER 2023-11-25 00:18 | Emergency (ER) | payer MEDICARE, MEDICAID, SELFPAY ==
[2023-11-25 00:28] VITALS: BP 139/77; PULSE 95; RESP 16; TEMP 36.4; O2SAT 95; BMI 29.8
[2023-11-25 00:32] VITALS: BP 140/87; PULSE 94; RESP 16; O2SAT 95
--- NOTE | 2023-11-25 00:36 | XRR_ITS ---
PROCEDURE INFORMATION: Exam: XR Left Shoulder Exam date and time: 11/25/2023 12:55 AM Age: 73 years old Clinical indication: Injury or trauma; Fall; Blunt trauma (contusions or hematomas); Shoulder; Left; Prior surgery; Surgery date: 6+ months; Additional info: Fall pain TECHNIQUE: Imaging protocol: Radiologic exam of the left shoulder. Views: 2 or more views. COMPARISON: CR XR chest 1V portable [id number] 09/18/2023 10:58 AM FINDINGS: Bones/joints: No acute fracture or dislocation. Acromioclavicular degenerative joint disease and likely chronic rotator cuff pathology given decreased acromiohumeral distance. A surgical anchor is also noted within the humeral head. Soft tissues: Normal. XR/XR shoulder LT min 2V* [id number] IMPRESSION: No acute bony findings.
--- NOTE | 2023-11-25 00:36 | XRR_ITS ---
PROCEDURE INFORMATION: Exam: XR Right Hand Exam date and time: 11/25/2023 12:51 AM Age: 73 years old Clinical indication: Injury or trauma; Fall; Blunt trauma (contusions or hematomas); Hand; Right; Additional info: Fall pain TECHNIQUE: Imaging protocol: Radiologic exam of the right hand. Views: 3 or more views. COMPARISON: CR (UP EX, ) 04/13/2021 6:46 PM FINDINGS: Bones/joints: No acute fracture or dislocation. Mild degenerative joint disease. Soft tissues: Unremarkable. XR/XR hand RT min 3V* [id number] IMPRESSION: No acute bony findings.
--- NOTE | 2023-11-25 00:36 | XRR_ITS ---
PROCEDURE INFORMATION: Exam: XR Left Elbow Exam date and time: 11/25/2023 12:58 AM Age: 73 years old Clinical indication: Injury or trauma; Fall; Blunt trauma (contusions or hematomas); Elbow; Left; Additional info: Fall pain TECHNIQUE: Imaging protocol: Radiologic exam of the left elbow. Views: 3 or more views. COMPARISON: CR (CHEST, ) 11/25/2023 12:55 AM FINDINGS: Bones/joints: No acute fracture or dislocation. Elbow degenerative joint disease. Soft tissues: Unremarkable. XR/XR elbow LT min 3V* [id number] IMPRESSION: No acute bony findings.
--- NOTE | 2023-11-25 00:53 | ED_ITS ---
HPI - Extremity Problem General: Chief complaint: Extremity Injury, Upper Stated complaint: Fall, Left elbow/Shoulder Pain History of Present Illness: Patient tripped and fell down landed on his left elbow, and his right hand, and is also his left shoulder hurts. Patient felt a pop in his elbow and now has difficulty straightening out. Patient did not hit his head but no loss of consciousness. Related Data Home Medications Medication Instructions Recorded Confirmed gabapentin 300 mg capsule 300 mg PO TID 07/12/23 11/17/23 insulin detemir U-100 100 unit/mL 70 unit SUBCUT BID 07/12/23 11/17/23 (3 mL) subcutaneous pen (Levemir FlexTouch U-100 Insulin) atorvastatin 10 mg tablet 10 mg PO DAILY 08/08/23 11/17/23 lisinopril 10 mg tablet 10 mg PO DAILY 08/08/23 11/17/23 metformin 1,000 mg tablet 1,000 mg PO BID 08/08/23 11/17/23 paroxetine HCl 10 mg tablet 10 mg PO DAILY 08/08/23 11/17/23 Previous Rx's Medication Instructions Recorded fluticasone 500 mcg-salmeterol 50 1 inh inhalation BID #60 ea 02/06/21 mcg/dose blistr powdr for inhalation (Advair Diskus) New tread for [place] Boot #1 ea 10/29/21 albuterol sulfate 90 mcg/actuation 2 inh inhalation Q4H PRN shortness 12/18/21 aerosol inhaler of breath or wheezing #18 grams ropinirole 4 mg tablet 8 mg (2 x 4 mg) PO BID #180 tabs 02/02/22 [place] Boot to the Right #1 ea 07/10/22 CAM Boot #1 ea 12/02/22 Wheel chair with elevated foot rest #1 ea 01/01/23 fluticasone propionate 50 1 spray intranasal DAILY PRN nasal 03/01/23 mcg/actuation nasal congestion #16 grams spray,suspension (Flonase Allergy Relief) Tamara loaiza AFO #1 ea 03/04/23 Diabetic shoes #1 ea 07/13/23 dapagliflozin propanediol 5 mg 5 mg PO DAILY #30 tabs 10/05/23 tablet (Farxiga) sulfamethoxazole 800 1 tab PO BID 7 days #14 tabs 11/17/23 mg-trimethoprim 160 mg tablet (Bactrim DS) Allergies Allergy/AdvReac Type Severity Reaction Status Date / Time Penicillins Allergy Unknown Verified 11/25/23 00:32 Review of Systems General: Reports: 10 or more systems reviewed and unremarkable except in HPI and below PFSH ED PFSH: Medical History Hypotension Sepsis Acute renal failure Enterocolitis 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 BG well controlled with scheduled insulin -consistent carb diet as tolerated Parastomal hernia Pyelonephritis -UA indicative of infection -evidence of mild focal R pyelonephritis on CT -urine cx: Klebsiella oxytoca, sensitivity noted -blood cx: 2/2 bottles positive for klebsiella oxytoca; repeat set prelim negative -associated sepsis given tachycardia, leukocytosis, fever, pro-calcitonin elevated (1.35). Sepsis now resolved -continue to monitor vital signs; stable -minimal leukocytosis -has urostomy secondary to hx of bladder cancer; continue to monitor urine output -continue Ceftriaxone; will d/c on levaquin -off IVF as oral intake has improved PETER (obstructive sleep apnea) History of bladder cancer Diabetes mellitus -insulin dependent Hx of intestinal obstruction Surgical History History of appendectomy History of cholecystectomy History of shoulder surgery History of urostomy History of esophageal hernia repair Family History Mother Thyroid disease Hypertension Father Hypertension Social History Smoking and tobacco/nicotine status: never used tobacco/nicotine Quit status (tobacco/nicotine): has quit using Year quit tobacco: 2009 Former quit date comment: previously 4 ppd Alcohol intake: former Substance/Drug Use: never Lives independently: Yes Household members: other Details: brother Marital status: / Number of children: 1 Number of grandchildren: 2 service: No Current occupational status: retired and 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 gender identity: Male Special jose carlos needs: No Agree to transfusion: Yes Physical Exam Const: COMMON NORMALS: no acute distress, average body habitus, patient oriented x3, no limitations, healthy appearing, alert and well nourished HENMT: COMMON NORMALS: normocephalic, atraumatic, hearing grossly normal bilaterally, external ears normal, Normal external nose present and moist oral mucous membranes HEAD & SCALP: normocephalic and atraumatic NOSE: Normal external nose present EXTERNAL EAR: Yes external ears normal Neck/C-Spine: COMMON NORMALS: full ROM, no lymphadenopathy, supple, no meningeal signs, no JVD and Thyroid normal THYROID: Thyroid normal Chest: COMMONS NORMALS: normal inspection of the chest and normal palpation of entire chest wall Resp: COMMON NORMALS: normal respiratory effort, No retractions, No use of accessory muscles and clear to auscultation bilaterally AUSCULTATION: clear to auscultation bilaterally Cardio: COMMON NORMALS: no JVD, regular rate, regular rhythm, S1 normal heart sound present, S2 normal heart sound present, No gallops present (Cardio), No clicks present (Cardio), No murmurs present (Cardio) and No rub (Cardio) RATE: regular rate RHYTHM: regular rhythm HEART SOUNDS: S1 normal heart sound present and S2 normal heart sound present GI: COMMON NORMALS: Normal to inspection, nondistended, normoactive bowel sounds present, Soft to palpation, non-tender, No hepatosplenomegaly present and no masses PALPATION: Yes Soft to palpation and Yes No hepatosplenomegaly present Extremity: NARRATIVE EXTREMITY EXAM: Tenderness with palpation over elbow and anterior shoulder region, no obvious crepitus deformity noted. Limited range of motion with flexion of the elbow secondary to pain. Neuro: COMMON NORMALS: patient oriented x3 SENSORIUM/ORIENTATION: Yes alert MENINGEAL SIGNS: Yes no meningeal signs Course Vital Signs: Vital signs: Vital Signs Temperature 97.6 F 11/25/23 00:28 Pulse Rate 94 11/25/23 00:32 Respiratory Rate 16 11/25/23 00:32 Blood Pressure 140/87 11/25/23 00:32 Pulse Oximetry 95 11/25/23 00:32 Oxygen Delivery Me thod Room Air 11/25/23 00:32 MDM - Extremity (Nontraumatic) Medical Decision Making X-rays of the hand elbow and shoulder was obtained they were negative. Patient was given 60 mg Toradol IM. Patient be discharged home. Medical Records I reviewed the patient's medical records. Lab Data I reviewed the patient's lab results. Radiology Impressions Elbow X-Ray 11/25/23 00:36 IMPRESSION: No acute bony findings. Hand X-Ray 11/25/23 00:36 IMPRESSION: No acute bony findings. Shoulder X-Ray 11/25/23 00:36 IMPRESSION: No acute bony findings. All radiology interpretation(s) finalized by discharge Discharge Plan Discharge Patient Disposition: Home Clinical Impression: Fall, Acute pain of left shoulder, Elbow pain, Hand pain, right Condition: Stable Prescriptions: No Action fluticasone propion-salmeterol [Advair Diskus] 500-50 mcg/dose blister with device 1 inh inhalation BID Qty: 60 12RF [place] [place] Wheel chair with elevated foot rest See Rx Instructions .Route .MEDSUPPLY Qty: 1 0RF Rx Instructions: As directed by HOME ([facility] [place] Tamara HARDY See Rx Instructions .Route .MEDSUPPLY Qty: 1 0RF Rx Instructions: As directed by ceasar phillips fluticasone propionate [Flonase Allergy Relief] 50 mcg/actuation spray,suspension 1 spray intranasal DAILY PRN (Reason: nasal congestion) Qty: 16 0RF Rx Instructions: administer into each nostril gabapentin 300 mg capsule 300 mg PO TID Levemir FlexTouch U100 Insulin 100 unit/mL (3 mL) insulin pen 70 unit SUBCUT BID sulfamethoxazole-trimethoprim [Bactrim DS] 800-160 mg tablet 1 tab PO BID 7 Days Qty: 14 0RF [place] [place] New tread for [place] Boot See Rx Instructions .Route .MEDSUPPLY Qty: 1 0RF Rx Instructions: As directed by JUAN&O ([facility] [place] CAM Boot See Rx Instructions .Route .MEDSUPPLY Qty: 1 0RF Rx Instructions: As directed [place] [place] Diabetic shoes See Rx Instructions .ROUTE .MEDSUPPLY Qty: 1 0RF Rx Instructions: with custom molded accommodative orthotics the vane phillips albuterol sulfate 90 mcg/actuation HFA aerosol inhaler 2 inh INHALATION Q4H PRN (Reason: shortness of breath or wheezing) Qty: 18 0RF ropinirole 4 mg tablet 8 mg PO BID Qty: 180 3RF (DME) [place] Boot to the Right See Rx Instructions .Route .MEDSUPPLY Qty: 1 0RF Rx Instructions: As directed by JUAN&O dapagliflozin propanediol [Farxiga] 5 mg tablet 5 mg PO DAILY Qty: 30 0RF paroxetine HCl 10 mg tablet 10 mg PO DAILY atorvastatin 10 mg tablet 10 mg PO DAILY metformin 1,000 mg tablet 1,000 mg PO BID lisinopril 10 mg tablet 10 mg PO DAILY Discharge Orders: Discharge ED (Routine); Ordered 11/25/23 Ordered By: John Mejia Referrals: Ivett Still MD [Primary Care Provider] - 1 week Patient Instructions: Musculoskeletal Pain (ED) Activity Restrictions/Additional Instructions: Your x-rays were read by the radiologist as negative for acute fracture. Please continue take [id number] Tylenol and/or ibuprofen as needed for pain. P lease follow-up with your family practice physician within next 7 days for further evaluation and treatment as needed. Coding Level of Care Code ED Marine Tower Operator for Osiris Ansari
[2023-11-25] MEDS: ketorolac 60 mg/2 mL INJ IM (01:13)
[2023-11-25] MEDS: ropinirole 1 mg Tablet 8 MG PO (01:16)
[2023-11-25 01:59] VITALS: BP 119/73; PULSE 91; O2SAT 94
== END 2023-11-25 02:00 | disposition home or self-care (01) ==
PROVIDERS: Emergency Provider Emergency Medicine; PCP Family Medicine
DX: M25.522 Pain in left elbow (principal); M79.641 Pain in right hand; M25.512 Pain in left shoulder; Z79.4 Long term (current) use of insulin; Z79.84 Long term (current) use of oral hypoglycemic drugs; Z87.891 Personal history of nicotine dependence; E11.22 Type 2 diabetes mellitus with diabetic chronic kidney disease; N18.2 Chronic kidney disease, stage 2 (mild); Z85.51 Personal history of malignant neoplasm of bladder
CPT/HCPCS: 73030; 73080; 73130; 96372; 99284; J1885

== ENCOUNTER → 2023-11-30 11:47 | Outpatient (BNVA) | payer MEDICARE, MEDICAID, SELFPAY | PROVIDERS: PCP Family Medicine; Visit Provider Family Medicine | DX: G25.81 Restless legs syndrome (principal); D64.9 Anemia, unspecified | CPT/HCPCS: 80053; 82728; 83735; 84443; 85025; 87426 ==

== ENCOUNTER 2023-12-03 05:45 | Emergency (ER) | payer MEDICARE, MEDICAID, SELFPAY ==
[2023-12-03] VITALS (17 sets, daily range): BP systolic 119–176; BP diastolic 57–119; PULSE 76–101; RESP 12–22; TEMP 35.8; O2SAT 92–99; BMI 29.8
--- NOTE | 2023-12-03 06:21 | ECG_ITS ---
[facility] Test Date: 2023-12-03 Pat Name: Cole Troncoso Department: Room: Gender: Male Energy Professional: : 1950 Requested By: Jordy Heaton Order Number: [id number] Sharri MD: Ha Cisneros M.D. Measurements Intervals [place] Rate: 77 P: 95 DE: 161 QRS: -4 QRSD: 138 T: 43 QT: 411 QTc: 468 Interpretive Statements SINUS RHYTHM RIGHT BUNDLE BRANCH BLOCK [120+ ms QRS DURATION, UPRIGHT V1, 40+ ms S IN I/aVL/V4/V5/V6] Compared to ECG 12/03/2023 06:28:31 No significant changes Electronically Signed On 12-03-2023 16:49:37 CDT by Ha Cisneros M.D. [email or web address]
--- NOTE | 2023-12-03 06:23 | W.ED.WEAKNES ---
HPI - Weakness General: Chief complaint: Weakness Stated complaint: weakness Time Seen by Provider: 12/03/23 05:55 History of Present Illness: 73-year-old male who presents emergency room via EMS with a complaint of dizziness weakness nausea vomiting. He was Pyrroxate when he went to bed he got up before 4 AM this morning he has a urostomy and felt his urostomy bag needed to be changed. He got up he went to the bathroom he said no difficulty getting out of bed or ambulating to the bathroom while he was in the bathroom preparing to change his urostomy bag he suddenly got very weak nauseous and began to have double vision and nearly fell. He had no chest pain or shortness of breath during this time. EMS was called. His is with him in the emergency room twice this is onset of symptoms at 4 AM. On arrival here he did vomit x 1. He denies any chest pain or shortness of breath. He has double vision and forced deviation medially of his left eye. He has double vision. He has loss of peripheral vision to the left visual field. He continues to be dizzy and unsteady has not ataxia while lying down but states if he tries to get up at all he feels very unsteady and begins to get lightheaded and dizzy still also feeling very nauseous and like he needs to vomiting, even after having received antiemetics and route. Patient is diabetic has a history of hyperlipidemia and hypertension. Krystle presents here his blood pressure is elevated. He has no known history of coronary disease or previous stroke. Associated symptoms: Reports nausea and vomiting; Denies chest pain, chills, dysuria or fever(s) Review of Systems Const: Denies: fever(s) or chills Eyes: Reports: change in vision Card: Denies: chest pain Resp: Denies: dyspnea GI: Reports: nausea and vomiting; Denies: abdominal pain : Denies: dysuria, urinary frequency or urinary urgency Musc: Denies: neck pain or back pain Skin/Breast: Denies: rash Neuro: Reports: dizziness PFSH ED PFSH: Medical History Hypotension Sepsis Acute renal failure Enterocolitis 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 BG well controlled with scheduled insulin -consistent carb diet as tolerated Parastomal hernia Pyelonephritis -UA indicative of infection -evidence of mild focal R pyelonephritis on CT -urine cx: Klebsiella oxytoca, sensitivity noted -blood cx: 2/2 bottles positive for klebsiella oxytoca; repeat set prelim negative -associated sepsis given tachycardia, leukocytosis, fever, pro-calcitonin elevated (1.35). Sepsis now resolved -continue to monitor vital signs; stable -minimal leukocytosis -has urostomy secondary to hx of bladder cancer; continue to monitor urine output -continue Ceftriaxone; will d/c on levaquin -off IVF as oral intake has improved PETER (obstructive sleep apnea) History of bladder cancer Diabetes mellitus -insulin dependent Hx of intestinal obstruction Surgical History History of appendectomy History of cholecystectomy History of shoulder surgery History of urostomy History of esophageal hernia repair Family History Mother Thyroid disease Hypertension Father Hypertension Social History Smoking and tobacco/nicotine status: never used tobacco/nicotine Quit status (tobacco/nicotine): has quit using Year quit tobacco: 2009 Former quit date comment: previously 4 ppd Alcohol intake: former Substance/Drug Use: never Lives independently: Yes Household members: other Details: brother Marital status: / Number of children: 1 Number of grandchildren: 2 service: No Current occupational status: retired and 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 gender identity: Male Special jose carlos needs: No Agree to transfusion: Yes Physical Exam Const: GENERAL APPEARANCE: cooperative ORIENTATION/CONSCIOUSNESS: Yes awake, Yes oriented to person, Yes oriented to place and Yes oriented to time HENMT: COMMON NORMALS: normocephalic, atraumatic and hearing grossly normal bilaterally HEAD & SCALP: normocephalic and atraumatic Resp: COMMON NORMALS: normal respiratory effort, No retractions, No use of accessory muscles and clear to auscultation bilaterally AUSCULTATION: clear to auscultation bilaterally Cardio: COMMON NORMALS: regular rate, regular rhythm and No murmurs present (Cardio) RATE: regular rate RHYTHM: regular rhythm GI: COMMON NORMALS: Soft to palpation and No hepatosplenomegaly present AUSCULTATION: Yes normoactive bowel sounds PALPATION: Yes Soft to palpation, No Tenderness to palpation present (GI), No Guarding due to palpation present (GI) and Yes No hepatosplenomegaly present Extremity: COMMON NORMALS: normal to inspection, capillary refill normal, no clubbing, cyanosis or edema, no calf tenderness and no pedal edema Neuro: SENSORIUM/ORIENTATION: Yes oriented to person, Yes oriented to place and Yes oriented to time Skin: COMMON NORMALS: no rashes or lesions noted GENERAL SKIN EXAM: no rashes or lesions noted Course Vital Signs: Vital signs: Vital Signs Temperature 96.4 F L 12/03/23 05:54 Pulse Rate 101 H 12/03/23 09:04 Respiratory Rate 16 12/03/23 09:00 Blood Pressure 133/71 12/03/23 09:04 Pulse Oximetry 96 12/03/23 09:04 Oxygen Delivery Me thod Room Air 12/03/23 05:45 MDM - Weakness Medical Decision Making CT shows a left midbrain stroke with small area of hemorrhage. We did attempt to have the patient's stand up and is unable to do so due to symptoms with extremely dizzy. Discussed with Dr. Berry. Made arrangements for transfer transfer ER to [facility] and the [facility] ER physician is receiving. Discussed with him as well as with neurology and neurosurgery via the transfer line. Patient stable at time of discharge on a nicardipine drip with blood pressure controlled. He is stable awake and alert and oriented patient is nearly completely asymptomatic while resting in bed if he is not attempting to set up. Medical Records I reviewed the patient's medical records. Lab Data I reviewed the patient's lab results. 12/03/23 07:06 12/03/23 07:[address] 12/03/23 06:43 IMPRESSION: Hyperattenuating focus in the left dorsal midbrain which measures 8 x 7 x 12 mm(AP x CC x TV). New from 08/05/2023, and concerning for acute hemorrhage. ASSESSMENT: ASPECTS ([place] Stroke Program Early CT Score) is 10. ADDENDUM: 12/03/23 [id number] COMMENT: THIS REPORT CONTAINS FINDINGS THAT MAY BE CRITICAL TO PATIENT CARE. The exam findings were verbally communicated by me to JORDY ARENAS via telephone conference at 7:18 AM CDT on 12/03/2023. The findings were acknowledged and understood. Laboratory Results WBC 6.37 10^3/uL (3.29-11.43) 12/03/23 07:06 RBC 4.84 10^6/uL (3.85-5.65) 12/03/23 07:06 Hgb 15.20 g/dL (11.27-16.99) 12/03/23 07:06 Hct 43.2 % (37-53) 12/03/23 07:06 MCV 89.3 fl (82-101) 12/03/23 07:06 MCH 31.4 pg (27-33) 12/03/23 07:06 MCHC 35.2 g/dL (30-55) 12/03/23 07:06 RDW 12.7 % (12.1-15.1) 12/03/23 07:06 Plt Count 156 10^3/cmm (157-399) L 12/03/23 07:06 MPV 10.2 fL (7.4-10.4) 12/03/23 07:06 Neut % (Auto) 62.6 % 12/03/23 07:06 Lymph % (Auto) 20.6 % 12/03/23 07:06 [place] % (Auto) 10.5 % 12/03/23 07:06 Eos % (Auto) 5.0 % 12/03/23 07:06 Baso % (Auto) 1.1 % 12/03/23 07:06 Neut # (Auto) 3.99 10^3/uL (1.8-7.7) 12/03/23 07:06 Lymph # (Auto) 1.3 10^3/uL (0.8-4.8) 12/03/23 07:06 [place] # (Auto) 0.7 10^3/uL (0.2-0.9) 12/03/23 07:06 Eos # (Auto) 0.3 10^3/uL (0.0-0.8) 12/03/23 07:06 Baso # (Auto) 0.1 10^3/uL (0.0-0.1) 12/03/23 07:06 Nucleated RBC % (auto) 0 % 12/03/23 07:06 Nucleated RBCs # 0.0 /100WBC 12/03/23 07:06 PT 13.40 SECONDS (12.1-14.9) 12/03/23 07:06 INR 0.99 (0.8-1.2) 12/03/23 07:06 APTT 25.8 SECONDS (23.9-36.7) 12/03/23 07:06 Sodium 137 mmol/L (136-145) 12/03/23 07:06 Potassium 4.4 mmol/L (3.5-5.1) 12/03/23 07:06 Chloride 100 mmol/L (98-107) 12/03/23 07:06 Carbon Dioxide 25 mmol/L (22-29) 12/03/23 07:06 Anion Gap 16.4 (5-19) 12/03/23 07:06 BUN 35 mg/dL (8-23) H 12/03/23 07:06 Creatinine 1.0 mg/dL (0.7-1.2) 12/03/23 07:06 GFR Calculation Not Reportable 12/03/23 07:06 Glucose 351 mg/dL (65-115) H 12/03/23 07:06 POC Glucose 397 mg/dL (70-110) H 12/03/23 06:47 Calculated Osmolality 306 mOsm/kg (285-295) H 12/03/23 07:06 Lactic Acid 1.9 mmol/L (0.5-2.2) 12/03/23 07:06 Calcium 9.3 mg/dL (8.5-10.5) 12/03/23 07:06 Total Bilirubin 0.2 mg/dL (0.15-1.2) 12/03/23 07:06 AST 15 U/L (0-40) 12/03/23 07:06 ALT 25 U/L (0-41) 12/03/23 07:06 Alkaline Phosphatase 94 U/L (40-130) 12/03/23 07:06 Troponin T Baseline 30 ng/L (0-15) H 12/03/23 07:06 Total Protein 7.3 g/dL (6.6-8.7) 12/03/23 07:06 Albumin 4.1 g/dL (3.5-5.2) 12/03/23 07:06 Globulin 3.2 g/dL (1.3-4.6) 12/03/23 07:06 Lipase 71 U/L (13-60) H 12/03/23 07:06 Urine Color Yellow (Yellow) 12/03/23 05:58 Urine Appearance Clear (CLEAR) 12/03/23 05:58 Urine pH 8.5 (5-7) A 12/03/23 05:58 Ur Specific [place] 1.012 (1.005-1.030) 12/03/23 05:58 Urine Protein 2+ (Negative) A 12/03/23 05:58 Urine Glucose (UA) 3+ (Normal) H 12/03/23 05:58 Urine Ketones Negative (Negative) 12/03/23 05:58 Urine Blood Trace (Negative) A 12/03/23 05:58 Urine Nitrate Negative (Negative) 12/03/23 05:58 Urine Bilirubin Negative (Negative) 12/03/23 05:58 Urine Urobilinogen 0.2 mg/dL (Negative) 12/03/23 05:58 Ur Leukocyte Esterase Trace (Negative) A 12/03/23 05:58 Urine RBC 0-2 /hpf (0-2) 12/03/23 05:58 Urine WBC 0-5 /hpf (0-5) 12/03/23 05:58 Ur Squamous Epith Cells 0-5 /hpf (0-5) 12/03/23 05:58 Amorphous Sediment Not Reportable 12/03/23 05:58 Urine Bacteria Trace /hpf (NONE) 12/03/23 05:58 Hyaline Casts 0-4 /lpf H 12/03/23 05:58 All radiology interpretation(s) finalized by discharge Discharge Plan Discharge Patient Disposition: Transfer to ED Clinical Impression: Hemorrhagic stroke Condition: Stable Prescriptions: No Action fluticasone propion-salmeterol [Advair Diskus] 500-50 mcg/dose blister with device 1 inh inhalation BID Qty: 60 12RF (DME) Wheel chair with elevated foot rest See Rx Instructions .Route .MEDSUPPLY Qty: 1 0RF Rx Instructions: As directed by HOME (DME) Tamara HARDY See Rx Instructions .Route .MEDSUPPLY Qty: 1 0RF Rx Instructions: As directed by ceasar phillips fluticasone propionate [Flonase Allergy Relief] 50 mcg/actuation spray,suspension 1 spray intranasal DAILY PRN (Reason: nasal congestion) Qty: 16 0RF Rx Instructions: administer into each nostril gabapentin 300 mg capsule 300 mg PO TID Levemir FlexTouch U100 Insulin 100 unit/mL (3 mL) insulin pen 70 unit SUBCUT BID sulfamethoxazole-trimethoprim [Bactrim DS] 800-160 mg tablet 1 tab PO BID 7 Days Qty: 14 0RF (DME) New tread for [place] Boot See Rx Instructions .Route .MEDSUPPLY Qty: 1 0RF Rx Instructions: As directed by [facility] (DME) [place] Boot See Rx Instructions .Route .MEDSUPPLY Qty: 1 0RF Rx Instructions: As directed (DME) Diabetic ceasar See Rx Instructions .ROUTE .MEDSUPPLY Qty: 1 0RF Rx Instructions: with custom molded accommodative orthotics the vane phillips albuterol sulfate 90 mcg/actuation HFA aerosol inhaler 2 inh INHALATION Q4H PRN (Reason: shortness of breath or wheezing) Qty: 18 0RF ropinirole 4 mg tablet 8 mg PO BID Qty: 180 3RF (DME) [place] Boot to the Right See Rx Instructions .Route .MEDSUPPLY Qty: 1 0RF Rx Instructions: As directed by [facility] dapagliflozin propanediol [Farxiga] 5 mg tablet 5 mg PO DAILY Qty: 30 0RF paroxetine HCl 10 mg tablet 10 mg PO DAILY atorvastatin 10 mg tablet 10 mg PO DAILY metformin 1,000 mg tablet 1,000 mg PO BID lisinopril 10 mg tablet 10 mg PO DAILY Referrals: Ivett Still MD [Primary Care Provider] - Coding Level of Care Code ED Pharmacy Technician Per Diem for g Fwd Related Data Home Medications Medication Instructions Recorded Confirmed gabapentin 300 mg capsule 300 mg PO TID 07/12/23 11/17/23 insulin detemir U-100 100 unit/mL 70 unit SUBCUT BID 07/12/23 11/17/23 (3 mL) subcutaneous pen (Levemir FlexTouch U-100 Insulin) atorvastatin 10 mg tablet 10 mg PO DAILY 08/08/23 11/17/23 lisinopril 10 mg tablet 10 mg PO DAILY 08/08/23 11/17/23 metformin 1,000 mg tablet 1,000 mg PO BID 08/08/23 11/17/23 paroxetine HCl 10 mg tablet 10 mg PO DAILY 08/08/23 11/17/23 Previous Rx's Medication Instructions Recorded fluticasone 500 mcg-salmeterol 50 1 inh inhalation BID #60 ea 02/06/21 mcg/dose blistr powdr for inhalation (Advair Diskus) New tread for [place] Boot #1 ea 10/29/21 albuterol sulfate 90 mcg/actuation 2 inh inhalation Q4H PRN shortness 12/18/21 aerosol inhaler of breath or wheezing #18 grams ropinirole 4 mg tablet 8 mg (2 x 4 mg) PO BID #180 tabs 02/02/22 [place] Boot to the Right #1 ea 07/10/22 [place] Boot #1 ea 12/02/22 Wheel chair with elevated foot rest #1 ea 01/01/23 fluticasone propionate 50 1 spray intranasal DAILY PRN nasal 03/01/23 mcg/actuation nasal congestion #16 grams spray,suspension (Flonase Allergy Relief) [place] carbon AFO #1 ea 03/04/23 Diabetic shoes #1 ea 07/13/23 dapagliflozin propanediol 5 mg 5 mg PO DAILY #30 tabs 10/05/23 tablet (Farxiga) sulfamethoxazole 800 1 tab PO BID 7 days #14 tabs 11/17/23 mg-trimethoprim 160 mg tablet (Bactrim DS) Allergies Allergy/AdvReac Type Severity Reaction Status Date / Time Penicillins Allergy Unknown Verified 12/03/23 05:51 NIH stroke score NIHSS Level Of Consciousness - 1a: 0 Level Of Consciousness Questions - 1b: Both Correct Level Of Consciousness Commands - 1c: Both Correct Best Gaze - 2: Forced Deviation Visual Rushing - 3: Partial Hemianopia Facial Palsy - 4: Normal Motor Arm Right - 5: No Drift Motor Arm Left - 5: No Drift Motor Leg Right - 6: No Drift Motor Leg Left - 6: No Drift Limb Ataxia - 7: Absent Sensory - 8: Mild To Moderate Loss Best Language - 9: No Aphasia Dysarthia - 10: Normal Extinction And Inattention - 11: 0 Score Total Score: 4
--- NOTE | 2023-12-03 06:43 | CTR_ITS ---
PROCEDURE INFORMATION: Exam: CT Head Without Contrast Exam date and time: 12/03/2023 6:50 AM Age: 73 years old Clinical indication: Stroke-like symptoms; Visual disturbance; Additional info: Symptoms of acute stroke TECHNIQUE: Imaging protocol: Computed tomography of the head without contrast. Radiation optimization: All CT scans at this facility use at least one of these dose optimization techniques: automated exposure control; mA and/or kV adjustment per patient size (includes targeted exams where dose is matched to clinical indication); or iterative reconstruction. Other technique: STROKE PROTOCOL was implemented. COMPARISON: CT head wo/w con [id number] 08/05/2023 10:05 AM RADIATION DOSE METRICS: Total DLP (mGy-cm): 1192.38 FINDINGS: Brain: There is a hyperattenuating focus in the left dorsal midbrain which measures 8 x 7 x 12 mm(AP x CC x TV). New from 08/05/2023, and concerning for acute hemorrhage. Otherwise, no acute infarct, hemorrhage, mass, or mass effect. Mild chronic white matter microvascular ischemic change. Normal ventricles. No extra-axial fluid. Cerebral ventricles: See Brain finding. Paranasal sinuses: Within the limitations of motion artifact, paranasal sinuses and mastoid air cells are clear. Mastoid air cells: Within the limitations of motion artifact, paranasal sinuses and mastoid air cells are clear. Orbital cavities: No acute abnormality in the orbits. Bones: Calvarium and scalp are unremarkable. Soft tissues: See Bones finding. CT/CT head thrombolytic [id number] IMPRESSION: Hyperattenuating focus in the left dorsal midbrain which measures 8 x 7 x 12 mm(AP x CC x TV). New from 08/05/2023, and concerning for acute hemorrhage. ASSESSMENT: ASPECTS ([place] Stroke Program Early CT Score) is 10.
[2023-12-03 06:47] LABS: Bacteria Urine Trace /hpf; Hyaline Casts Urine 0-4 /lpf; RBC Urine 0-2 /hpf (0-2); Squamous Epithelial Cell Urine 0-5 /hpf (0-5); WBC Urine 0-5 /hpf (0-5)
[2023-12-03 06:48] LABS: Add Urine Microscopic? YES; Bilirubin Urine Negative (Negative); Blood Urine Trace (Negative); Glucose Urine UA 3+ (Normal); Ketones Urine Negative (Negative); Leukocyte Esterase Urine Trace (Negative); Nitrate Urine Negative (Negative); Protein Urine 2+ (Negative); Specific Gravity, Urine 1.012 (1.005-1.030); Urine Color Yellow (Yellow); Urobilinogen Urine 0.2 mg/dL (Negative); pH Urine 8.5 (5-7)
[2023-12-03 06:59] LABS: Glucose Point of Care 397 mg/dL (70-110)
[2023-12-03 07:15] LABS: Urine Appearance Clear (CLEAR)
[2023-12-03 07:20] LABS: Basophils # 0.1 10^3/uL (0.0-0.1); Basophils % 1.1 %; Eosinophils # 0.3 10^3/uL (0.0-0.8); Hematocrit 43.2 % (37-53); Lymphocytes # 1.3 10^3/uL (0.8-4.8); Lymphocytes % 20.6 %; Mean Corpuscular HGB Conc 35.2 g/dL (30-55); Mean Corpuscular Hemoglobin 31.4 pg (27-33); Mean Corpuscular Volume 89.3 fl (82-101); Mean Platelet Volume 10.2 fL (7.4-10.4); Monocytes # 0.7 10^3/uL (0.2-0.9); Monocytes % 10.5 %; Neutrophils # 3.99 10^3/uL (1.8-7.7); Neutrophils % 62.6 %; Nucleated Red Blood Cells % 0 %; Platelet Count 156 10^3/cmm (157-399); Red Blood Count 4.84 10^6/uL (3.85-5.65); Red Cell Distribution Width 12.7 % (12.1-15.1); White Blood Count 6.37 10^3/uL (3.29-11.43)
[2023-12-03 07:51] LABS: INR 0.99 (0.8-1.2)
[2023-12-03 07:52] LABS: Partial Thromboplastin Time 25.8 SECONDS (23.9-36.7)
[2023-12-03 07:53] LABS: Lactic Sepsis W/Reflex 1.9 mmol/L (0.5-2.2)
[2023-12-03 07:54] LABS: Alanine Aminotransferase 25 U/L (0-41); Albumin Level 4.1 g/dL (3.5-5.2); Alkaline Phosphatase 94 U/L (40-130); Anion Gap 16.4 (5-19); Aspartate Amino Transferase 15 U/L (0-40); Blood Urea Nitrogen 35 mg/dL (8-23); Calcium 9.3 mg/dL (8.5-10.5); Carbon Dioxide 25 mmol/L (22-29); Chloride 100 mmol/L (98-107); Creatinine Clr Calc Pharmacy 80.4707; Globulin 3.2 g/dL (1.3-4.6); Glucose 351 mg/dL (65-115); Lipase 71 U/L (13-60); Osmolality Calculated 306 mOsm/kg (285-295); Potassium 4.4 mmol/L (3.5-5.1); Sodium 137 mmol/L (136-145); Total Bilirubin 0.2 mg/dL (0.15-1.2); Total Protein 7.3 g/dL (6.6-8.7)
[2023-12-03 07:55] LABS: Troponin(5th) Baseline 30 ng/L (0-15)
[2023-12-03] MEDS: nicardipine 20 MG/200 ML PREMIX 50 MG IV (07:56)
[2023-12-03] MEDS: risperiDONE 1 mg Tablet 0.5 MG PO (07:58)
--- NOTE | 2023-12-03 08:32 | PC.NURSE ---
REPORT CALLED TO KRISTA SMITH ACCEPTING NURSE VERBALIZED UNDERSTANDING AND DENIED ANY QUESTIONS.
--- NOTE | 2023-12-03 08:52 | PC.NURSE ---
ADDITIONAL BAG OF NICARDIPINE PULLED BY THIS NURSE AND GIVEN TO FIELD TRAFFIC INVESTIGATOR FOR TRANSFER. AWARE.
--- NOTE | 2023-12-03 12:21 | ECG_ITS ---
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 Measurements Intervals [place] Rate: 77 P: 47 [place]: 164 QRS: 0 QRSD: 134 T: 37 QT: 402 QTc: 455 Interpretive Statements SINUS RHYTHM RIGHT BUNDLE BRANCH BLOCK [120+ ms QRS DURATION, UPRIGHT V1, 40+ ms S IN I/aVL/V4/V5/V6] Compared to ECG 09/18/2023 08:37:38 Sinus tachycardia no longer present Indeterminate axis no longer present Left anterior fascicular block no longer present Electronically Signed On 12-03-2023 16:52:44 CDT by Ha Cisneros M.D. [email or web address] [email or web address] choice [facility] of smith countyCommunity Peace Developerscleveland clinic [id number]
== END 2023-12-03 09:13 ==
PROVIDERS: Emergency Provider Family Medicine; PCP Family Medicine
DX: I62.9 Nontraumatic intracranial hemorrhage, unspecified (principal); Z79.4 Long term (current) use of insulin; Z79.84 Long term (current) use of oral hypoglycemic drugs; Z87.891 Personal history of nicotine dependence; E10.22 Type 1 diabetes mellitus with diabetic chronic kidney disease; N18.2 Chronic kidney disease, stage 2 (mild); Z85.51 Personal history of malignant neoplasm of bladder
CPT/HCPCS: 36415; 36416; 70450; 80053; 81001; 82962; 83605; 83690; 84484; 85025; 85610; 85730; 87040; 93005; 96365; 99285

== ENCOUNTER 2023-12-09 12:41 | Emergency (ER) | payer MEDICARE, MEDICAID, SELFPAY ==
--- NOTE | 2023-12-09 12:43 | ECG_ITS ---
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 Measurements Intervals [place] Rate: 52 P: 73 [place]: 146 QRS: -19 QRSD: 134 T: 14 QT: 442 QTc: 414 Interpretive Statements SINUS BRADYCARDIA RIGHT BUNDLE BRANCH BLOCK [120+ ms QRS DURATION, UPRIGHT V1, 40+ ms S IN I/aVL/V4/V5/V6] Compared to ECG 12/03/2023 06:59:32 Sinus rhythm no longer present Electronically Signed On 12-09-2023 13:57:09 CDT by Ha Cisneros M.D. [id number]
[2023-12-09 13:11] VITALS: BP 134/78; PULSE 74; RESP 18; TEMP 36.8; O2SAT 96
[2023-12-09 13:53] LABS: Basophils # 0.1 10^3/uL (0.0-0.1); Basophils % 0.9 %; Eosinophils # 0.3 10^3/uL (0.0-0.8); Eosinophils % 3.2 %; Lymphocytes # 1.9 10^3/uL (0.8-4.8); Lymphocytes % 22.6 %; Mean Corpuscular HGB Conc 33.2 g/dL (30-55); Mean Corpuscular Hemoglobin 30.2 pg (27-33); Mean Corpuscular Volume 91.1 fl (82-101); Mean Platelet Volume 10.2 fL (7.4-10.4); Monocytes # 0.6 10^3/uL (0.2-0.9); Monocytes % 7.5 %; Neutrophils # 5.57 10^3/uL (1.8-7.7); Neutrophils % 65.4 %; Nucleated Red Blood Cells % 0 %; Platelet Count 163 10^3/cmm (157-399); Red Blood Count 4.83 10^6/uL (3.85-5.65); Red Cell Distribution Width 13.2 % (12.1-15.1); White Blood Count 8.51 10^3/uL (3.29-11.43)
[2023-12-09 14:21] LABS: Alanine Aminotransferase 31 U/L (0-41); Albumin Level 3.9 g/dL (3.5-5.2); Alkaline Phosphatase 86 U/L (40-130); Anion Gap 14.6 (5-19); Aspartate Amino Transferase 20 U/L (0-40); Blood Urea Nitrogen 32 mg/dL (8-23); Calcium 9.3 mg/dL (8.5-10.5); Carbon Dioxide 23 mmol/L (22-29); Chloride 108 mmol/L (98-107); Creatinine Clr Calc Pharmacy 64.2449; Globulin 3.2 g/dL (1.3-4.6); Glucose 168 mg/dL (65-115); Lipase 65 U/L (13-60); Osmolality Calculated 303 mOsm/kg (285-295); Potassium 4.6 mmol/L (3.5-5.1); Sodium 141 mmol/L (136-145); Total Bilirubin 0.3 mg/dL (0.15-1.2); Total Protein 7.1 g/dL (6.6-8.7)
--- NOTE | 2023-12-09 15:09 | ED_ITS ---
HPI - Arrhythmia/Palpitations 2 General: Chief Complaint: Arrhythmia/Palpitations Stated Complaint: Blood pressure up, vomiting Time Seen by Provider: 12/09/23 14:44 Source: patient Mode of arrival: ambulatory Limitations: no limitations History of Present Illness: 73-year-old male states he had been wyatt sferred last week due to hemorrhagic stroke he states that they discharged him Wednesday and told him to watch his blood pressure. He states that he checked his blood pressure at home with a wrist cuff and it was in the 170s and he became concerned he states he also ate a pizza pizza and had 1 episode of vomiting states he feels completely fine he denies any more vomiting denies abdominal pain denies headache denies chest pain his blood pressure here is improved Associated symptoms: Reports vomiting; Deny nausea Related Data Home Medications Medication Instructions Recorded Confirmed gabapentin 300 mg capsule 300 mg PO TID 07/12/23 11/17/23 insulin detemir U-100 100 unit/mL 70 unit SUBCUT BID 07/12/23 11/17/23 (3 mL) subcutaneous pen (Levemir FlexTouch U-100 Insulin) atorvastatin 10 mg tablet 10 mg PO DAILY 08/08/23 11/17/23 lisinopril 10 mg tablet 10 mg PO DAILY 08/08/23 11/17/23 metformin 1,000 mg tablet 1,000 mg PO BID 08/08/23 11/17/23 paroxetine HCl 10 mg tablet 10 mg PO DAILY 08/08/23 11/17/23 Previous Rx's Medication Instructions Recorded fluticasone 500 mcg-salmeterol 50 1 inh inhalation BID #60 ea 02/06/21 mcg/dose blistr powdr for inhalation (Advair Diskus) New tread for MINTO Boot #1 ea 10/29/21 albuterol sulfate 90 mcg/actuation 2 inh inhalation Q4H PRN shortness 12/18/21 aerosol inhaler of breath or wheezing #18 grams ropinirole 4 mg tablet 8 mg (2 x 4 mg) PO BID #180 tabs 02/02/22 [place] Boot to the Right #1 ea 07/10/22 CAM Boot #1 ea 12/02/22 Wheel chair with elevated foot rest #1 ea 01/01/23 fluticasone propionate 50 1 spray intranasal DAILY PRN nasal 03/01/23 mcg/actuation nasal congestion #16 grams spray,suspension (Flonase Allergy Relief) Tamara carbon AFO #1 ea 03/04/23 Diabetic shoes #1 ea 07/13/23 dapagliflozin propanediol 5 mg 5 mg PO DAILY #30 tabs 10/05/23 tablet (Farxiga) sulfamethoxazole 800 1 tab PO BID 7 days #14 tabs 11/17/23 mg-trimethoprim 160 mg tablet (Bactrim DS) Allergies Allergy/AdvReac Type Severity Reaction Status Date / Time Penicillins Allergy Unknown Verified 12/09/23 13:17 Review of Systems 2 Const: Denies: fever(s), chills, body aches or change in appetite ENMT: Denies: throat pain or dental pain Card: Denies: chest pain Resp: Denies: dyspnea GI: Reports: vomiting; Denies: abdominal pain, nausea or diarrhea Musc: Denies: neck pain or back pain Skin/Breast: Denies: rash Neuro: Denies: headache(s) PFSH ED 2 PFSH: Medical History Hypotension Sepsis Acute renal failure Enterocolitis 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 BG well controlled with scheduled insulin -consistent carb diet as tolerated Parastomal hernia Pyelonephritis -UA indicative of infection -evidence of mild focal R pyelonephritis on CT -urine cx: Klebsiella oxytoca, sensitivity noted -blood cx: 2/2 bottles positive for klebsiella oxytoca; repeat set prelim negative -associated sepsis given tachycardia, leukocytosis, fever, pro-calcitonin elevated (1.35). Sepsis now resolved -continue to monitor vital signs; stable -minimal leukocytosis -has urostomy secondary to hx of bladder cancer; continue to monitor urine output -continue Ceftriaxone; will d/c on levaquin -off IVF as oral intake has improved PETER (obstructive sleep apnea) History of bladder cancer Diabetes mellitus -insulin dependent Hx of intestinal obstruction Surgical History History of appendectomy History of cholecystectomy History of shoulder surgery History of urostomy History of esophageal hernia repair Family History Mother Thyroid disease Hypertension Father Hypertension Social History Smoking and tobacco/nicotine status: never used tobacco/nicotine Quit status (tobacco/nicotine): has quit using Year quit tobacco: 2009 Former quit date comment: previously 4 ppd Alcohol intake: former Substance/Drug Use: never Lives independently: Yes Household members: other Details: brother Marital status: / Number of children: 1 Number of grandchildren: 2 service: No Current occupational status: retired and 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 gender identity: Male Special jose carlos needs: No Agree to transfusion: Yes Physical Exam 2 Const: COMMON NORMALS: no acute distress, patient oriented x3 and healthy appearing HENMT: COMMON NORMALS: normocephalic and atraumatic HEAD & SCALP: n ormocephalic and atraumatic Eye: COMMON NORMALS: Equal, round and reactive pupils present and EOMs intact bilaterally PUPIL: Yes Equal, round and reactive pupils present Neck/C-Spine: COMMON NORMALS: full ROM and supple Chest: COMMONS NORMALS: normal inspection of the chest Resp: COMMON NORMALS: normal respiratory effort Cardio: COMMON NORMALS: regular rate, regular rhythm and No murmurs present (Cardio) RATE: regular rate RHYTHM: regular rhythm Extremity: COMMON NORMALS: normal to inspection and full ROM Neuro: COMMON NORMALS: patient oriented x3, moves all extremities and no focal motor deficits Psych: COMMON NORMALS: mental status grossly normal, Normal thought process present and cooperative THOUGHT PROCESS: Normal thought process present Skin: COMMON NORMALS: no rashes or lesions noted and no wounds GENERAL SKIN EXAM: no rashes or lesions noted Course 2 Vital Signs: Vital signs: Vital Signs Temperature 98.2 F 12/09/23 13:11 Pulse Rate 74 12/09/23 13:11 Respiratory Rate 18 12/09/23 13:11 Blood Pressure 134/78 12/09/23 13:11 Pulse Oximetry 96 12/09/23 13:11 Oxygen Delivery Me thod Room Air 12/09/23 13:11 MDM - Arrhythmia/Palpitations Medical Decision Making Patient presents here with concerns of hypertension informed that wrist cuffs are sometimes and are accurate his blood pressures here been normal did have 1 episode of vomiting is likely from eating he has had no more nausea or vomiting blood works normal stable for discharge follow-up with PCP return if worsening Lab Data 12/09/23 13:45 12/09/23 13:45 Laboratory Results WBC 8.51 10^3/uL (3.29-11.43) 12/09/23 13:45 RBC 4.83 10^6/uL (3.85-5.65) 12/09/23 13:45 Hgb 14.60 g/dL (11.27-16.99) 12/09/23 13:45 Hct 44.0 % (37-53) 12/09/23 13:45 MCV 91.1 fl (82-101) 12/09/23 13:45 MCH 30.2 pg (27-33) 12/09/23 13:45 MCHC 33.2 g/dL (30-55) 12/09/23 13:45 RDW 13.2 % (12.1-15.1) 12/09/23 13:45 Plt Count 163 10^3/cmm (157-399) 12/09/23 13:45 MPV 10.2 fL (7.4-10.4) 12/09/23 13:45 Neut % (Auto) 65.4 % 12/09/23 13:45 Lymph % (Auto) 22.6 % 12/09/23 13:45 Tama % (Auto) 7.5 % 12/09/23 13:45 Eos % (Auto) 3.2 % 12/09/23 13:45 Baso % (Auto) 0.9 % 12/09/23 13:45 Neut # (Auto) 5.57 10^3/uL (1.8-7.7) 12/09/23 13:45 Lymph # (Auto) 1.9 10^3/uL (0.8-4.8) 12/09/23 13:45 Tama # (Auto) 0.6 10^3/uL (0.2-0.9) 12/09/23 13:45 Eos # (Auto) 0.3 10^3/uL (0.0-0.8) 12/09/23 13:45 Baso # (Auto) 0.1 10^3/uL (0.0-0.1) 12/09/23 13:45 Nucleated RBC % (auto) 0 % 12/09/23 13:45 Nucleated RBCs # 0.0 /100WBC 12/09/23 13:45 Sodium 141 mmol/L (136-145) 12/09/23 13:45 Potassium 4.6 mmol/L (3.5-5.1) 12/09/23 13:45 Chloride 108 mmol/L (98-107) H 12/09/23 13:45 Carbon Dioxide 23 mmol/L (22-29) 12/09/23 13:45 Anion Gap 14.6 (5-19) 12/09/23 13:45 BUN 32 mg/dL (8-23) H 12/09/23 13:45 Creatinine 1.2 mg/dL (0.7-1.2) 12/09/23 13:45 GFR Calculation Not Reportable 12/09/23 13:45 Glucose 168 mg/dL (65-115) H 12/09/23 13:45 Calculated Osmolality 303 mOsm/kg (285-295) H 12/09/23 13:45 Calcium 9.3 mg/dL (8.5-10.5) 12/09/23 13:45 Total Bilirubin 0.3 mg/dL (0.15-1.2) 12/09/23 13:45 AST 20 U/L (0-40) 12/09/23 13:45 ALT 31 U/L (0-41) 12/09/23 13:45 Alkaline Phosphatase 86 U/L (40-130) 12/09/23 13:45 Total Protein 7.1 g/dL (6.6-8.7) 12/09/23 13:45 Albumin 3.9 g/dL (3.5-5.2) 12/09/23 13:45 Globulin 3.2 g/dL (1.3-4.6) 12/09/23 13:45 Lipase 65 U/L (13-60) H 12/09/23 13:45 No radiology studies performed this visit Discharge Plan Discharge Patient Disposition: Home Clinical Impression: Vomiting, Hypotension Condition: Stable Prescriptions: No Action fluticasone propion-salmeterol [Advair Diskus] 500-50 mcg/dose blister with device 1 inh inhalation BID Qty: 60 12RF (DME) Wheel chair with elevated foot rest See Rx Instructions .Route .MEDSUPPLY Qty: 1 0RF Rx Instructions: As directed by HOME (DME) Tamara HARDY See Rx Instructions .Route .MEDSUPPLY Qty: 1 0RF Rx Instructions: As directed by ceasar phillips fluticasone propionate [Flonase Allergy Relief] 50 mcg/actuation spray,suspension 1 spray intranasal DAILY PRN (Reason: nasal congestion) Qty: 16 0RF Rx Instructions: administer into each nostril gabapentin 300 mg capsule 300 mg PO TID Levemir FlexTouch U100 Insulin 100 unit/mL (3 mL) insulin pen 70 unit SUBCUT BID sulfamethoxazole-trimethoprim [Bactrim DS] 800-160 mg tablet 1 tab PO BID 7 Days Qty: 14 0RF (DME) New tread for MINTO Boot See Rx Instructions .Route .MEDSUPPLY Qty: 1 0RF Rx Instructions: As directed by [facility] ([facility] [place] CAM Boot See Rx Instructions .Route .MEDSUPPLY Qty: 1 0RF Rx Instructions: As directed (DME) Diabetic shoes See Rx Instructions .ROUTE .MEDSUPPLY Qty: 1 0RF Rx Instructions: with custom molded accommodative orthotics the shoe jacqueline albuterol sulfate 90 mcg/actuation HFA aerosol inhaler 2 inh INHALATION Q4H PRN (Reason: shortness of breath or wheezing) Qty: 18 0RF ropinirole 4 mg tablet 8 mg PO BID Qty: 180 3RF (DME) [place] Boot to the Right See Rx Instructions .Route .MEDSUPPLY Qty: 1 0RF Rx Instructions: As directed by [facility] dapagliflozin propanediol [Farxiga] 5 mg tablet 5 mg PO DAILY Qty: 30 0RF paroxetine HCl 10 mg tablet 10 mg PO DAILY atorvastatin 10 mg tablet 10 mg PO DAILY metformin 1,000 mg tablet 1,000 mg PO BID lisinopril 10 mg tablet 10 mg PO DAILY Discharge Orders: Discharge ED (Routine); Ordered 12/09/23 Ordered By: Jim Mims Referrals: Ivett Still MD [Primary Care Provider] - 4-7 days Discharge Diet: Advance as tolerated Discharge Activity: Resume usual activity Patient Instructions: Hypertension (ED) Coding Level of Care Code ED Vessel Traffic Officer for Laurig Elan
[2023-12-09 15:20] VITALS: BP 127/68; PULSE 50; O2SAT 95
[2023-12-09 15:25] VITALS: BP 128/69; PULSE 55; O2SAT 94
== END 2023-12-09 15:25 | disposition home or self-care (01) ==
PROVIDERS: Emergency Provider Emergency Medicine; PCP Family Medicine
DX: R11.11 Vomiting without nausea (principal); I95.9 Hypotension, unspecified; Z79.84 Long term (current) use of oral hypoglycemic drugs; Z79.4 Long term (current) use of insulin; Z87.891 Personal history of nicotine dependence; E10.22 Type 1 diabetes mellitus with diabetic chronic kidney disease; N18.2 Chronic kidney disease, stage 2 (mild); Z85.51 Personal history of malignant neoplasm of bladder
CPT/HCPCS: 36415; 80053; 83690; 85025; 93005; 99284

== ENCOUNTER → 2024-01-04 13:43 | Outpatient (BNVA) | payer MEDICARE, MEDICAID, SELFPAY | PROVIDERS: PCP Family Medicine; Visit Provider Family Medicine | DX: E11.9 Type 2 diabetes mellitus without complications (principal) | CPT/HCPCS: 80053; 80061; 82607; 83036 ==

== ENCOUNTER → 2024-01-07 08:15 | Outpatient (BNVA) | payer MEDICARE, MEDICAID, SELFPAY | PROVIDERS: PCP Family Medicine; Visit Provider Specialist | DX: E11.42 Type 2 diabetes mellitus with diabetic polyneuropathy (principal); I61.3 Nontraumatic intracerebral hemorrhage in brain stem; I10 Essential (primary) hypertension; G56.21 Lesion of ulnar nerve, right upper limb; G56.11 Other lesions of median nerve, right upper limb | CPT/HCPCS: 99205 ==

== ENCOUNTER 2024-01-31 10:33 | Outpatient (CLI) | payer MEDICARE, MEDICAID, SELFPAY ==
--- NOTE | 2024-01-31 11:30 | MR_ITS ---
WS: [id number] MRA HEAD TECHNIQUE: Axial 3-D TOF images obtained with axial images and axial, sagittal, and coronal 2-D refor matted images. CLINICAL INFORMATION: I61.3 - Nontraumatic intracerebral hemorrhage in brain stem COMPARISON: None. FINDINGS: Some images degraded by motion. Dominant distal LEFT vertebral artery. Smaller but patent distal RIGHT vertebral artery. Basilar jovan ry is patent. Normal vascularity to the RADIOLOGIST PHYSICIAN territory bilaterally. Both ICAs are patent at the skull base. Normal vascularity to the AVA territory. Normal vascularity t o the MCA territories bilaterally. No evidence of proximal flow-limiting stenosis or aneurysm. Mild i ntracranial atheromatous disease. MR/MR angio head wo con [id number] IMPRESSION: Some images degraded by patient motion. 1. Mild intracranial atheromatous disease with mild segmental narrowing. 2. No evidence of proximal flow-limiting stenosis or aneurysm. 3. No other acute findings
== END 2024-01-31 10:34 | disposition home or self-care (01) ==
LOC: RAD 10:33
PROVIDERS: PCP Family Medicine; Visit Provider Specialist
DX: I61.3 Nontraumatic intracerebral hemorrhage in brain stem (principal); I61.9 Nontraumatic intracerebral hemorrhage, unspecified
CPT/HCPCS: 70544

== ENCOUNTER → 2024-02-08 16:05 | Outpatient (BNVA) | payer MEDICARE, MEDICAID, SELFPAY | PROVIDERS: PCP Family Medicine; Referring Provider Specialist; Visit Provider Specialist | DX: G56.11 Other lesions of median nerve, right upper limb (principal); G56.03 Carpal tunnel syndrome, bilateral upper limbs; G56.23 Lesion of ulnar nerve, bilateral upper limbs | CPT/HCPCS: 95910 ==

== ENCOUNTER 2024-02-14 08:48 | Emergency (ER) | payer MEDICARE, MEDICAID, SELFPAY ==
[2024-02-14 08:55] VITALS: BP 140/69; PULSE 78; RESP 20; TEMP 36.3; O2SAT 99
--- NOTE | 2024-02-14 08:56 | XR_ITS ---
WS: [id number] Right shoulder, 4 views, 02/14/2024 Clinical Data: Pain Comparison: None. Findings: No fractures or dislocations are seen. The AC joint shows mild osteoarthritis. The glenohumeral joint demonstrates spurring and irregularity. The adjacent right clavicle, right scapula and ribs are norm al. The soft tissues are unremarkable. There is an orthopedic ankle in the right humeral head. 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
--- NOTE | 2024-02-14 09:01 | W.ED.UPPEXIN ---
HPI - Extremity Injury (Upper) General: Chief Complaint: Extremity Injury, Upper Stated Complaint: rt shoulder pain Time Seen by Provider: 02/14/24 08:53 Source: patient and family Mode of arrival: ambulatory Limitations: no limitations History of Present Illness: Patient is a 73-year-old male presents to ED today with complaint of right shoulder pain. He states he accidentally fell on Wednesday after tripping over an uneven edge on his carpet. He states he landed with his arms outstretched and began noticing right shoulder pain following that. Denies any other injuries sustained during the fall. Denies striking his head or LOC. He does state he recently had nerve conduction studies performed and had all kinds of problems found . MD complaint: injury to: right and shoulder Onset (ago): day(s) Other Extremity Injury: Right: shoulder Other injuries: none Place: home Severity: moderate Relieving factors: immobilization Exacerbating factors: movement of extremity Context: fall Associated symptoms: Reports no associated symptoms; Denies neck pain Related Data Home Medications Medication Instructions Recorded Confirmed gabapentin 300 mg capsule 300 mg PO TID 07/12/23 02/14/24 insulin detemir U-100 100 unit/mL 70 unit SUBCUT BID 07/12/23 02/08/24 (3 mL) subcutaneous pen (Levemir FlexTouch U-100 Insulin) paroxetine HCl 10 mg tablet 10 mg PO DAILY 08/08/23 02/08/24 metoprolol tartrate 25 mg tablet 12.5 mg PO BID 12/14/23 02/08/24 Previous Rx's Medication Instructions Recorded albuterol sulfate 90 mcg/actuation 2 inh inhalation Q4H PRN shortness 12/18/21 aerosol inhaler of breath or wheezing #18 grams fluticasone propionate 50 1 spray intranasal DAILY PRN nasal 03/01/23 mcg/actuation nasal congestion #16 grams spray,suspension (Flonase Allergy Relief) Diabetic shoes #1 ea 07/13/23 lisinopril 10 mg tablet 10 mg PO DAILY #90 tabs 01/04/24 ropinirole 4 mg tablet 8 mg (2 x 4 mg) PO BID #180 tabs 01/04/24 Allergies Allergy/AdvReac Type Severity Reaction Status Date / Time Penicillins Allergy Unknown Verified 02/08/24 16:12 Review of Systems Eyes: Denies: change in vision, blurry vision, photophobia, eye discharge, floaters or seeing flashes ENMT: Denies: throat pain, odynophagia, ear or mastoid pain, ear discharge, nasal discharge, epistaxis or sinus pain Card: Denies: chest pain, palpitations, lightheadedness, syncope or pre-syncope Resp: Denies: dyspnea or pain on inspiration GI: Denies: abdominal pain : Denies: flank pain or hematuria Musc: Reports: joint pain (R shoulder); Denies: neck pain, back pain or extremity pain Neuro: Denies: headache(s) or dizziness PFSH ED PFSH: Medical History 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 BG well controlled with scheduled insulin -consistent carb diet as tolerated Parastomal hernia PETER (obstructive sleep apnea) History of bladder cancer Hx of intestinal obstruction Surgical History History of appendectomy History of cholecystectomy History of shoulder surgery History of urostomy History of esophageal hernia repair Family History Mother Thyroid disease Hypertension Father Hypertension Social History Smoking and tobacco/nicotine status: former use of tobacco/nicotine Quit status (tobacco/nicotine): has quit using Year quit tobacco: 2009 Former quit date comment: previously 4 ppd Alcohol intake: former Substance/Drug Use: never Lives independently: Yes Household members: other Details: brother Marital status: / Number of children: 1 Number of grandchildren: 2 service: No Current occupational status: retired and 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 gender identity: Male Special jose carlos needs: No Agree to transfusion: Yes Physical Exam Const: COMMON NORMALS: no acute distress, average body habitus, patient oriented x3, no limitations, healthy appearing, alert and well nourished GENERAL APPEARANCE: cooperative ORIENTATION/CONSCIOUSNESS: Yes awake, Yes oriented to person, Yes oriented to place and Yes oriented to time HENMT: COMMON NORMALS: normocephalic, atraumatic and TM's normal bilaterally HEAD & SCALP: normal to inspection, normocephalic and atraumatic; no Carlson's sign, no hematoma and no raccoon eyes FACE & SINUS: normal facial exam TYMPANIC MEMBRANE: TM's normal bilaterally MOUTH: other (no intraoral injuries noted) Eye: COMMON NORMALS: Equal, round and reactive pupils present and EOMs intact bilaterally GENERAL EYE: appearance normal, both eyes and all related structures and normal light reflex PUPIL: Yes Equal, round and reactive pupils present DIRECT OPHTHALMOSCOPY: Yes normal light reflex Neck/C-Spine: COMMON NORMALS: full ROM GENERAL: Yes normal visual inspection CERVICAL SPINE: Yes cervical ROM normal, No pain with cervical ROM, No Cervical spine tenderness, No step off deformity and No Paracervical muscle tenderness Chest: COMMONS NORMALS: normal inspection of the chest and normal palpation of entire chest wall Resp: COMMON NORMALS: normal respiratory effort and clear to auscultation bilaterally AUSCULTATION: clear to auscultation bilaterally Cardio: COMMON NORMALS: regular rate and regular rhythm RATE: regular rate RHYTHM: regular rhythm GI: COMMON NORMALS: Normal to inspection, nondistended, normoactive bowel sounds present, Soft to palpation, non-tender, No hepatosplenomegaly present and no masses INSPECTION: Yes normal to inspection and No abdominal wall ecchymosis AUSCULTATION: Yes normoactive bowel sounds PALPATION: Yes Soft to palpation and Yes No hepatosplenomegaly present Back/Pelvis: COMMON NORMALS: thoracic and lumbar spine normal to inspection, no thoracic nor lumbar tenderness and thoraco-lumbar ROM normal Extremity: COMMON NORMALS: normal to inspection and capillary refill normal GENERAL: Yes normal exam except as noted RIGHT UPPER EXTREMITY: Yes shoulder joint (TTP diffusely to R shoulder; fairly good ROM but elicits discomfort) Right shoulder: Yes Right shoulder joint neurovascular exam (normal) Neuro: KHADIJAH COMA SCALE: document GCS findings Khadijah coma scale eye opening: Spontaneous [place] coma scale verbal response: Orientated Khadijah coma scale motor response: Obey commands [place] coma scale total score: 15 COMMON NORMALS: patient oriented x3, CN's II-XII intact bilaterally, moves all extremities, no focal motor deficits, no sensory deficits noted and gait normal SENSORIUM/ORIENTATION: Yes alert, Yes oriented to person, Yes oriented to place and Yes oriented to time SPEECH: speech normal GAIT: Yes Normal gait present Skin: COMMON NORMALS: no rashes or lesions noted GENERAL SKIN EXAM: no rashes or lesions noted TRAUMA: no lacerations or abrasions Course Vital Signs: Vital signs: Vital Signs Temperature 97.4 F L 02/14/24 08:55 Pulse Rate 78 02/14/24 08:55 Respiratory Rate 20 H 02/14/24 08:55 Blood Pressure 140/69 02/14/24 08:55 Pulse Oximetry 99 02/14/24 08:55 Oxygen Delivery Me thod Room Air 02/14/24 08:55 MDM - Extremity Injury (Upper) Medical Decision Making XR negative for fracture. He will be allowed discharge home with instructions for conservative therapies and follow up with PCP. 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 All radiology interpretation(s) finalized by discharge Discharge Plan Discharge Patient Disposition: Home Clinical Impression: Acute pain of right shoulder Condition: Stable Prescriptions: No Action fluticasone propion-salmeterol [Advair Diskus] 500-50 mcg/dose blister with device 1 inh inhalation BID Qty: 60 12RF fluticasone propionate [Flonase Allergy Relief] 50 mcg/actuation spray,suspension 1 spray intranasal DAILY PRN (Reason: nasal congestion) Qty: 16 0RF Rx Instructions: administer into each nostril gabapentin 300 mg capsule 300 mg PO TID Levemir FlexTouch U100 Insulin 100 unit/mL (3 mL) insulin pen 70 unit SUBCUT BID lisinopril 10 mg tablet 10 mg PO DAILY Qty: 90 0RF ropinirole 4 mg tablet 8 mg PO BID Qty: 180 3RF metoprolol tartrate 25 mg tablet 12.5 mg PO BID (DME) Diabetic shoes See Rx Instructions .ROUTE .MEDSUPPLY Qty: 1 0RF Rx Instructions: with custom molded accommodative orthotics the shoe guys albuterol sulfate 90 mcg/actuation HFA aerosol inhaler 2 inh INHALATION Q4H PRN (Reason: shortness of breath or wheezing) Qty: 18 0RF dapagliflozin propanediol [Farxiga] 5 mg tablet 5 mg PO DAILY Qty: 30 0RF paroxetine HCl 10 mg tablet 10 mg PO DAILY atorvastatin 10 mg tablet 10 mg PO DAILY Discharge Orders: Discharge ED (Routine); Ordered 02/14/24 Ordered By: Gladys Taylor Referrals: Ivett Still MD [Primary Care Provider] - Activity Restrictions/Additional Instructions: As we discussed, your x-ray did not show any evidence of a fracture in your shoulder from your recent fall. You may continue to follow-up with your primary care provider for further treatment/evaluation. I hope you begin to feel better soon. Coding Level of Care Code ED Heating Plant Superintendent for Osiris Ansari
[2024-02-14 09:42] VITALS: BP 147/75; PULSE 78; O2SAT 97
== END 2024-02-14 09:44 | disposition home or self-care (01) ==
PROVIDERS: Emergency Provider Physician Assistant; PCP Family Medicine
DX: M25.511 Pain in right shoulder (principal); Z87.891 Personal history of nicotine dependence; E10.22 Type 1 diabetes mellitus with diabetic chronic kidney disease; N18.2 Chronic kidney disease, stage 2 (mild); Z85.51 Personal history of malignant neoplasm of bladder
CPT/HCPCS: 73030; 99283

== ENCOUNTER → 2024-03-08 09:11 | Outpatient (BNVA) | payer MEDICARE, MEDICAID, SELFPAY | PROVIDERS: PCP Family Medicine; Visit Provider Nurse Practitioner | DX: M25.532 Pain in left wrist (principal); M25.511 Pain in right shoulder; G56.03 Carpal tunnel syndrome, bilateral upper limbs; G56.23 Lesion of ulnar nerve, bilateral upper limbs | CPT/HCPCS: 73110; 99214 ==

== ENCOUNTER → 2024-03-28 09:15 | Outpatient (BNVA) | payer MEDICARE, MEDICAID, SELFPAY | PROVIDERS: PCP Family Medicine; Visit Provider Anesthesiology Pain Medicine | DX: M48.062 Spinal stenosis, lumbar region with neurogenic claudication (principal); E11.40 Type 2 diabetes mellitus with diabetic neuropathy, unspecified; M51.16 Intervertebral disc disorders with radiculopathy, lumbar region | CPT/HCPCS: 99214 ==

== ENCOUNTER → 2024-04-05 07:56 | Outpatient (BNVA) | payer MEDICARE, MEDICAID, SELFPAY | PROVIDERS: PCP Family Medicine; Visit Provider Specialist | DX: E11.42 Type 2 diabetes mellitus with diabetic polyneuropathy (principal); I61.3 Nontraumatic intracerebral hemorrhage in brain stem; I10 Essential (primary) hypertension; G56.21 Lesion of ulnar nerve, right upper limb; G56.11 Other lesions of median nerve, right upper limb | CPT/HCPCS: 80053; 80061; 83036; 83721; 99214 ==

== ENCOUNTER → 2024-04-07 10:23 | Outpatient (BNVA) | payer MEDICARE, MEDICAID, SELFPAY | PROVIDERS: PCP Family Medicine; Visit Provider Family Medicine | DX: Z01.818 Encounter for other preprocedural examination (principal) | CPT/HCPCS: 81003; 85025 ==

== ENCOUNTER → 2024-04-11 13:49 | Outpatient (BNVA) | payer MEDICARE, MEDICAID, SELFPAY | PROVIDERS: PCP Family Medicine; Visit Provider Anesthesiology Pain Medicine | DX: M54.16 Radiculopathy, lumbar region (principal); M48.062 Spinal stenosis, lumbar region with neurogenic claudication; Z01.812 Encounter for preprocedural laboratory examination | CPT/HCPCS: 64483; 77002; J1100; J3490 ==

== ENCOUNTER → 2024-04-13 05:34 | Day surgery (SDC) | payer MEDICARE, MEDICAID, SELFPAY ==
[2024-04-13 06:07] VITALS: BMI 29.8
[2024-04-13 06:08] VITALS: BP 88/52; PULSE 67; RESP 18; TEMP 36.3; O2SAT 98
[2024-04-13] MEDS: sodium chloride 0.9% 1,000 ML 30 ML IV (06:17)
--- NOTE | 2024-04-13 06:17 | ANES.PREANE2 ---
Pre-Anesthetic Assessment Height/Weight: Height 6 ft Weight 220 lb Temp Pulse Resp BP Pulse Ox O2 Del Method 97.3 F L 67 18 88/52 98 Room Air 04/13/24 06:08 04/13/24 06:08 04/13/24 06:08 04/13/24 06:08 04/13/24 06:08 04/13/24 06:10 Preop Diagnosis: Carpal tunnel syndrome Operation Date: 04/13/24 07:00 Proposed Procedures p Carpal Tunnel Release(Right) - Jami Robles MD Was Beta Jarad taken within 24 hours: Yes Was Clonidine taken within 24 hours: N/A Anesthetic Plan ASA status: 3 Anesthesia: General Other: No prior issues with anesthesia NPO since yesterday History of insulin-dependent diabetes, will check blood sugar GERD on Pepcid Hypertension on metoprolol. Preop BP 88/52 CKD, CR 1.3 on recent labs Labs reviewed from 04/07/2024 and acceptable for procedure Plan for general anesthesia Medications/Allergies Home Medications Medication Instructions Recorded Confirmed Last Taken Type albuterol sulfate 90 mcg/actuation 2 inh inhalation Q4H PRN shortness 12/18/21 04/12/24 04/11/24 Rx aerosol inhaler of breath or wheezing #18 grams fluticasone propionate 50 1 spray intranasal DAILY PRN nasal 03/01/23 04/12/24 04/11/24 Rx mcg/actuation nasal congestion #16 grams spray,suspension (Flonase Allergy Relief) gabapentin 300 mg capsule 300 mg PO TID 07/12/23 04/12/24 04/12/24 History Diabetic shoes #1 ea 07/13/23 04/11/24 Unknown Rx paroxetine HCl 10 mg tablet 10 mg PO DAILY 08/08/23 04/12/24 04/12/24 History metoprolol tartrate 25 mg tablet 12.5 mg PO BID 12/14/23 04/12/24 04/12/24 History ropinirole 4 mg tablet 8 mg (2 x 4 mg) PO BID #180 tabs 01/04/24 04/12/24 04/12/24 Rx ibuprofen 200 mg tablet (Advil) 800 mg PO Q6H PRN Pain 02/14/24 04/12/24 04/11/24 History blood sugar diagnostic (Blood #200 ea 04/05/24 04/11/24 Unknown Rx Glucose Test strips) blood-glucose meter #1 ea 04/05/24 04/11/24 Unknown Rx dapagliflozin propanediol 10 mg 10 mg PO DAILY #30 tabs 04/05/24 04/12/24 04/11/24 Rx tablet (Farxiga) famotidine 40 mg tablet 40 mg PO BID #60 tabs 04/05/24 04/12/24 04/11/24 Rx insulin detemir U-100 100 unit/mL 60 unit SUBCUT BID 04/05/24 04/12/24 04/11/24 History (3 mL) subcutaneous pen (Levemir FlexTouch U-100 Insulin) lancets #200 ea 04/05/24 04/11/24 Unknown Rx losartan 50 mg tablet 50 mg PO DAILY #30 tabs 04/05/24 04/12/24 04/11/24 Rx sulfamethoxazole 800 1 tab PO BID 5 days #10 tabs 04/10/24 04/12/24 04/12/24 Rx mg-trimethoprim 160 mg tablet (Bactrim DS) Allergies Allergy/AdvReac Type Severity Reaction Status Date / Time Penicillins Allergy Unknown Verified 04/12/24 16:17 Current Medications Generic Name Dose Route Start Last Admin Trade Name Freq PRN Reason Stop Dose Admin Sodium Chloride 1,000 mls @ 30 mls/hr 04/13/24 06:00 04/13/24 06:17 Sodium Chloride 0.9% IV 04/14/24 05:59 30 mls/hr .Q24H RAFAELA Administration PFSH Anesthesia Medical History 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 BG well controlled with scheduled insulin -consistent carb diet as tolerated Parastomal hernia PETER (obstructive sleep apnea) History of bladder cancer Hx of intestinal obstruction Surgical History History of appendectomy History of cholecystectomy History of shoulder surgery History of urostomy History of esophageal hernia repair Family History Mother Thyroid disease Hypertension Father Hypertension Social History Smoking and tobacco/nicotine status: never used tobacco/nicotine Quit status (tobacco/nicotine): has quit using Year quit tobacco: 2009 Former quit date comment: previously 4 ppd Alcohol intake: former Substance/Drug Use: never Lives independently: Yes Household members: other Details: brother Marital status: / Number of children: 1 Number of grandchildren: 2 service: No 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
[2024-04-13 06:38] LABS: Glucose Point of Care 261 mg/dL (70-110)
--- NOTE | 2024-04-13 06:59 | SUR.PREOP ---
patient was being assessed in pre-op for surgery. patient appeared confused. unable to answered what medications he had taken last. blood pressure 88/52, 68/46, 56/36. patient was seen by anesthesia and at that time was in and out of consciousness. anesthesia called report to ER and patient was then sent to ER.
== END ==
PROVIDERS: PCP Family Medicine; Visit Provider Specialist
PROC: (CPT 64721; principal; 2024-04-13 16:00)
DX: G56.01 Carpal tunnel syndrome, right upper limb (principal); Z53.8 Procedure and treatment not carried out for other reasons
CPT/HCPCS: 36416; 82962; J1100; J2704; J7030

== ENCOUNTER 2024-04-13 06:44 | Inpatient (IN) | payer MEDICARE, MEDICAID, SELFPAY ==
[2024-04-13] VITALS (77 sets, daily range): BP systolic 58–145; BP diastolic 40–88; PULSE 43–88; RESP 12–24; TEMP 36.6–36.8; O2SAT 79–100; BMI 29.1
--- NOTE | 2024-04-13 06:59 | ECG_ITS ---
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 Measurements Intervals [place] Rate: 46 P: 7 KS: 155 QRS: -5 QRSD: 130 T: 29 QT: 485 QTc: 426 Interpretive Statements SINUS BRADYCARDIA RIGHT BUNDLE BRANCH BLOCK [120+ ms QRS DURATION, UPRIGHT V1, 40+ ms S IN I/aVL/V4/V5/V6] Compared to ECG 12/09/2023 13:20:24 No significant changes Electronically Signed On 04-14-2024 09:03:39 CAMPUS RECRUITING COORDINATOR by Bassam Tony M.D. [id number]
--- NOTE | 2024-04-13 07:06 | XR_ITS ---
WS: [id number] Portable AP upright chest, 04/13/2024 portable chest, 09/18/2023 Clinical Data: bradycardia Comparison: None. Findings: No nodules, masses or effusions are seen. The heart is normal. The pulmonary vascularity is not increased. No pneumonia or pneumothorax is seen. The aortic arch and descending thoracic aorta s how tortuosity. There is an orthopedic anchor in the left humeral head. XR/XR chest 1V portable [id number] Impression: Atherosclerosis.
[2024-04-13 07:13] LABS: Glucose Point of Care 269 mg/dL (70-110)
--- NOTE | 2024-04-13 07:16 | ED_ITS ---
HPI - Syncope 2 General: Chief Complaint: Syncope Stated Complaint: low bp, dizzy Time Seen by Provider: 04/13/24 06:49 Source: patient Mode of arrival: ambulatory Limitations: no limitations History of Present Illness: 73-year-old male who was over the gettin g checked in for surgery for carpal tunnel surgery patient's blood pressure there was low he is also bradycardic and having episodes of syncope. He states he does have low blood pressure at times he is on metoprolol at this time states he took a dose last night blood pressure here is in the 70s heart rate in the 50s he states that he has felt tired. He has no slurred speech denies any chest pain denies any headache denies any abdominal pain denies any worse improved factors. Associated symptoms: Deny abdominal pain, chest pain, fever(s), headache(s) or nausea Related Data Home Medications Medication Instructions Recorded Confirmed gabapentin 300 mg capsule 300 mg PO TID 07/12/23 04/13/24 paroxetine HCl 10 mg tablet 10 mg PO DAILY 08/08/23 04/13/24 ibuprofen 200 mg tablet (Advil) 800 mg PO Q6H PRN Pain 02/14/24 04/13/24 insulin detemir U-100 100 unit/mL 60 unit SUBCUT BID 04/05/24 04/13/24 (3 mL) subcutaneous pen (Levemir FlexTouch U-100 Insulin) Previous Rx's Medication Instructions Recorded albuterol sulfate 90 mcg/actuation 2 inh inhalation Q4H PRN shortness 12/18/21 aerosol inhaler of breath or wheezing #18 grams fluticasone propionate 50 1 spray intranasal DAILY PRN nasal 03/01/23 mcg/actuation nasal congestion #16 grams spray,suspension (Flonase Allergy Relief) Diabetic shoes #1 ea 07/13/23 ropinirole 4 mg tablet 8 mg (2 x 4 mg) PO BID #180 tabs 01/04/24 blood sugar diagnostic (Blood #200 ea 04/05/24 Glucose Test strips) blood-glucose meter #1 ea 04/05/24 dapagliflozin propanediol 10 mg 10 mg PO DAILY #30 tabs 04/05/24 tablet (Farxiga) famotidine 40 mg tablet 40 mg PO BID #60 tabs 04/05/24 lancets #200 ea 04/05/24 losartan 50 mg tablet 50 mg PO DAILY #30 tabs 04/05/24 sulfamethoxazole 800 1 tab PO BID 5 days #10 tabs 04/10/24 mg-trimethoprim 160 mg tablet (Bactrim DS) Allergies Allergy/AdvReac Type Severity Reaction Status Date / Time Penicillins Allergy Unknown Verified 04/12/24 16:17 Review of Systems 2 Const: Reports: fatigue; Denies: fever(s), chills, body aches or change in appetite ENMT: Denies: throat pain or dental pain Card: Reports: syncope; Denies: chest pain Resp: Denies: dyspnea GI: Denies: abdominal pain, nausea, vomiting or diarrhea Musc: Denies: neck pain or back pain Skin/Breast: Denies: rash Neuro: Denies: headache(s) PFSH ED 2 PFSH: Medical History 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 BG well controlled with scheduled insulin -consistent carb diet as tolerated Parastomal hernia PETER (obstructive sleep apnea) History of bladder cancer Hx of intestinal obstruction Surgical History History of appendectomy History of cholecystectomy History of shoulder surgery History of urostomy History of esophageal hernia repair Family History Mother Thyroid disease Hypertension Father Hypertension Social History Smoking and tobacco/nicotine status: never used tobacco/nicotine Quit status (tobacco/nicotine): has quit using Year quit tobacco: 2009 Former quit date comment: previously 4 ppd Alcohol intake: former Substance/Drug Use: never Lives independently: Yes Household members: other Details: brother Marital status: / Number of children: 1 Number of grandchildren: 2 service: No Current occupational status: retired and 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 gender identity: Male Special jose carlos needs: No Agree to transfusion: Yes Physical Exam 2 Const: COMMON NORMALS: no acute distress, patient oriented x3 and healthy appearing HENMT: COMMON NORMALS: normocephalic and atraumatic HEAD & SCALP: n ormocephalic and atraumatic Neck/C-Spine: COMMON NORMALS: full ROM and supple Chest: COMMONS NORMALS: normal inspection of the chest Resp: COMMON NORMALS: normal respiratory effort, No retractions, No use of accessory muscles and clear to auscultation bilaterally AUSCULTATION: clear to auscultation bilaterally Cardio: COMMON NORMALS: regular rate, regular rhythm and No murmurs present (Cardio) RATE: regular rate RHYTHM: regular rhythm GI: COMMON NORMALS: Normal to inspection, nondistended, normoactive bowel sounds present, Soft to palpation, non-tender and no masses PALPATION: Yes Soft to palpation Extremity: COMMON NORMALS: normal to inspection and full ROM Neuro: COMMON NORMALS: patient oriented x3, moves all extremities and no focal motor deficits Psych: COMMON NORMALS: mental status grossly normal, Normal thought process present and cooperative THOUGHT PROCESS: Normal thought process present Skin: COMMON NORMALS: no rashes or lesions noted and no wounds GENERAL SKIN EXAM: no rashes or lesions noted Course 2 Vital Signs: Vital signs: Vital Signs Temperature 98.2 F 04/13/24 06:51 Pulse Rate 54 L 04/13/24 10:53 Respiratory Rate 17 04/13/24 10:05 Blood Pressure 96/58 04/13/24 10:53 Pulse Oximetry 100 04/13/24 10:53 Oxygen Delivery Me thod Nasal Cannula 04/13/24 10:30 Oxygen Flow Rate 2 04/13/24 10:30 MDM - Syncope Medical Decision Making Patient presents here with hypotension blood pressure has improved after IV fluids does have some dehydration with elevated creatinine and BUN he is also on beta-blockers likely causing some of his bradycardia and hypotension he has no signs of sepsis white count lactate here is normal he has not had any chest pain or shortness of breath D-dimer was negative no signs of pulmonary embolism head CT did show an area embolism likely from an IV start he has no headaches or signs of stroke here his blood pressure has improved here we will admit to ICU Medical Records I reviewed the patient's medical records. Lab Data I reviewed the patient's lab results. 04/13/24 07:11 04/13/24 07:11 Radiology Impressions Chest X-Ray 04/13/24 07:06 Impression: Atherosclerosis. Head CT 04/13/24 07:31 IMPRESSION: 1. No acute intracranial hemorrhage or edema. 2. Cerebral venous air embolism. Moderate amount of air noted in the superior sagittal sinus. There are a few additional foci of air in the cavernous sinuses. This may be due to recent peripheral vein cannulization. Notified Jim Mims MD at 04/13/2024 8:06 AM. Laboratory Results WBC 8.76 10^3/uL (3.29-11.43) 04/13/24 07:11 RBC 4.05 10^6/uL (3.85-5.65) 04/13/24 07:11 Hgb 12.30 g/dL (11.27-16.99) 04/13/24 07:11 Hct 37.4 % (37-53) 04/13/24 07:11 MCV 92.3 fl (82-101) 04/13/24 07:11 MCH 30.4 pg (27-33) 04/13/24 07:11 MCHC 32.9 g/dL (30-55) 04/13/24 07:11 RDW 13.1 % (12.1-15.1) 04/13/24 07:11 Plt Count 157 10^3/cmm (157-399) 04/13/24 07:11 MPV 11.0 fL (7.4-10.4) H 04/13/24 07:11 Neut % (Auto) 56.4 % 04/13/24 07:11 Lymph % (Auto) 29.9 % 04/13/24 07:11 [place] % (Auto) 10.6 % 04/13/24 07:11 Eos % (Auto) 2.1 % 04/13/24 07:11 Baso % (Auto) 0.7 % 04/13/24 07:11 Neut # (Auto) 4.94 10^3/uL (1.8-7.7) 04/13/24 07:11 Lymph # (Auto) 2.6 10^3/uL (0.8-4.8) 04/13/24 07:11 [place] # (Auto) 0.9 10^3/uL (0.2-0.9) 04/13/24 07:11 Eos # (Auto) 0.2 10^3/uL (0.0-0.8) 04/13/24 07:11 Baso # (Auto) 0.1 10^3/uL (0.0-0.1) 04/13/24 07:11 Nucleated RBC % (auto) 0 % 04/13/24 07:11 Nucleated RBCs # 0.0 /100WBC 04/13/24 07:11 D-Dimer 0.50 ug/mLFEU (0-0.59) 04/13/24 07:11 Sodium 135 mmol/L (136-145) L 04/13/24 07:11 Potassium 4.4 mmol/L (3.5-5.1) 04/13/24 07:11 Chloride 103 mmol/L (98-107) 04/13/24 07:11 Carbon Dioxide 18 mmol/L (22-29) L 04/13/24 07:11 Anion Gap 18.4 (5-19) 04/13/24 07:11 BUN 60 mg/dL (8-23) H 04/13/24 07:11 Creatinine 1.7 mg/dL (0.7-1.2) H 04/13/24 07:11 GFR Calculation Not Reportable 04/13/24 07:11 Glucose 284 mg/dL (65-115) H 04/13/24 07:11 POC Glucose 269 mg/dL (70-110) H 04/13/24 07:08 Calculated Osmolality 307 mOsm/kg (285-295) H 04/13/24 07:11 Lactic Acid 1.4 mmol/L (0.5-2.2) 04/13/24 07:11 Calcium 8.0 mg/dL (8.5-10.5) L 04/13/24 07:11 Magnesium 2.0 mg/dL (1.7-2.3) 04/13/24 07:11 Total Bilirubin 0.2 mg/dL (0.15-1.2) 04/13/24 07:11 AST 15 U/L (0-40) 04/13/24 07:11 ALT 16 U/L (0-41) 04/13/24 07:11 Alkaline Phosphatase 74 U/L (40-130) 04/13/24 07:11 Troponin T Baseline 106 ng/L (0-15) H* 04/13/24 07:11 Troponin T 120 Minute 108.5 ng/L (0-15) H 04/13/24 09:11 Delta Troponin T 2.5 ABS# (0-10) 04/13/24 09:11 NT-Pro-B Natriuret Pep 1225 pg/mL (0-125) H 04/13/24 07:11 Total Protein 6.0 g/dL (6.6-8.7) L 04/13/24 07:11 Albumin 3.3 g/dL (3.5-5.2) L 04/13/24 07:11 Globulin 2.7 g/dL (1.3-4.6) 04/13/24 07:11 TSH 1.94 uIU/mL (0.27-4.20) 04/13/24 07:11 Urine Color Yellow (Yellow) 04/13/24 07:45 Urine Appearance Clear (CLEAR) 04/13/24 07:45 Urine pH 7.5 (5-7) 04/13/24 07:45 Ur Specific [place] 1.012 (1.005-1.030) 04/13/24 07:45 Urine Protein 2+ (Negative) A 04/13/24 07:45 Urine Glucose (UA) Trace (Normal) H 04/13/24 07:45 Urine Ketones Negative (Negative) 04/13/24 07:45 Urine Blood 1+ (Negative) A 04/13/24 07:45 Urine Nitrate Negative (Negative) 04/13/24 07:45 Urine Bilirubin Negative (Negative) 04/13/24 07:45 Urine Urobilinogen 0.2 mg/dL (Negative) 04/13/24 07:45 Ur Leukocyte Esterase 2+ (Negative) A 04/13/24 07:45 Urine RBC 6-10 /hpf (0-2) 04/13/24 07:45 Urine WBC 21-50 /hpf (0-5) H 04/13/24 07:45 Ur Squamous Epith Cells 0-5 /hpf (0-5) 04/13/24 07:45 Amorphous Sediment Not Reportable 04/13/24 07:45 Urine Bacteria Trace /hpf (NONE) 04/13/24 07:45 Hyaline Casts 2.46 /lpf 04/13/24 07:45 All radiology interpretation(s) finalized by discharge EKG Data EKG 1: I personally reviewed and interpreted this EKG as follows: EKG interpretation date: 04/13/24 EKG interpretation time: 06:59 Interpretation: sinus joseph hr [address] elevation qrs 130 qtc 444 Discharge Plan Discharge Patient Disposition: Admitted As Inpatient Admit Provider: Kenneth Vasquez Clinical Impression: Hypotension, Near syncope Condition: Stable Coding Level of Care Code ED Senior Front End Developer for Laurig Elan
[2024-04-13 07:28] LABS: Basophils # 0.1 10^3/uL (0.0-0.1); Basophils % 0.7 %; Eosinophils # 0.2 10^3/uL (0.0-0.8); Eosinophils % 2.1 %; Hematocrit 37.4 % (37-53); Lymphocytes # 2.6 10^3/uL (0.8-4.8); Lymphocytes % 29.9 %; Mean Corpuscular HGB Conc 32.9 g/dL (30-55); Mean Corpuscular Hemoglobin 30.4 pg (27-33); Mean Corpuscular Volume 92.3 fl (82-101); Monocytes # 0.9 10^3/uL (0.2-0.9); Monocytes % 10.6 %; Neutrophils # 4.94 10^3/uL (1.8-7.7); Neutrophils % 56.4 %; Nucleated Red Blood Cells % 0 %; Platelet Count 157 10^3/cmm (157-399); Red Blood Count 4.05 10^6/uL (3.85-5.65); Red Cell Distribution Width 13.1 % (12.1-15.1); White Blood Count 8.76 10^3/uL (3.29-11.43)
[2024-04-13] MEDS: atropine 0.1 mg/mL Syr 10 mL 0.5 MG IVP (07:28)
--- NOTE | 2024-04-13 07:28 | ED_ITS ---
Documented by User: SUSI Sher STDMARILEE 04/13/24 08:13 HPI - Syncope 2 General: Chief Complaint: Syncope Stated Complaint: low bp, dizzy Time Seen by Provider: 04/13/24 06:49 Source: patient Mode of arrival: ambulatory Limitations: no limitations History of Present Illness: Pt with PMH T2DM, CVA 11/2023, tobacco use, bladder cancer s/p urostomy in presenting to the emergency department today after syncopal event during preop for carpal tunnel release surgery today. On metoprolol 12.5 twice daily for what he describes as a fast heart rate without history of arrhythmia. Did take his metoprolol this morning, held his losartan and diabetes medications for surgery. He denies chest pain or shortness of breath this morning. He states he has lower extremity edema that comes and goes but does not have any today. Denies any recent illnesses, fevers, chills, diarrhea. On my encounter he is conversational and oriented, appears comfortable. Associated symptoms: Reports lightheadedness; Deny abdominal pain, chest pain or headache(s) Related Data Home Medications Medication Instructions Recorded Confirmed gabapentin 300 mg capsule 300 mg PO TID 07/12/23 04/13/24 paroxetine HCl 10 mg tablet 10 mg PO DAILY 08/08/23 04/13/24 ibuprofen 200 mg tablet (Advil) 800 mg PO Q6H PRN Pain 02/14/24 04/13/24 insulin detemir U-100 100 unit/mL 60 unit SUBCUT BID 04/05/24 04/13/24 (3 mL) subcutaneous pen (Levemir FlexTouch U-100 Insulin) Previous Rx's Medication Instructions Recorded albuterol sulfate 90 mcg/actuation 2 inh inhalation Q4H PRN shortness 12/18/21 aerosol inhaler of breath or wheezing #18 grams fluticasone propionate 50 1 spray intranasal DAILY PRN nasal 03/01/23 mcg/actuation nasal congestion #16 grams spray,suspension (Flonase Allergy Relief) Diabetic shoes #1 ea 07/13/23 ropinirole 4 mg tablet 8 mg (2 x 4 mg) PO BID #180 tabs 01/04/24 blood sugar diagnostic (Blood #200 ea 04/05/24 Glucose Test strips) blood-glucose meter #1 ea 04/05/24 dapagliflozin propanediol 10 mg 10 mg PO DAILY #30 tabs 04/05/24 tablet (Farxiga) famotidine 40 mg tablet 40 mg PO BID #60 tabs 04/05/24 lancets #200 ea 04/05/24 losartan 50 mg tablet 50 mg PO DAILY #30 tabs 04/05/24 sulfamethoxazole 800 1 tab PO BID 5 days #10 tabs 04/10/24 mg-trimethoprim 160 mg tablet (Bactrim DS) Allergies Allergy/AdvReac Type Severity Reaction Status Date / Time Penicillins Allergy Unknown Verified 04/12/24 16:17 Review of Systems 2 Eyes: Denies: change in vision Card: Reports: lightheadedness and syncope; Denies: chest pain, palpitations, swelling of feet/ankles or dyspnea on exertion Resp: Denies: dyspnea GI: Denies: abdominal pain, vomiting or diarrhea Neuro: Denies: headache(s) PFSH ED 2 PFSH: Medical History 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 BG well controlled with scheduled insulin -consistent carb diet as tolerated Parastomal hernia PETER (obstructive sleep apnea) History of bladder cancer Hx of intestinal obstruction Surgical History History of appendectomy History of cholecystectomy History of shoulder surgery History of urostomy History of esophageal hernia repair Family History Mother Thyroid disease Hypertension Father Hypertension Social History Smoking and tobacco/nicotine status: never used tobacco/nicotine Quit status (tobacco/nicotine): has quit using Year quit tobacco: 2009 Former quit date comment: previously 4 ppd Alcohol intake: former Substance/Drug Use: never Lives independently: Yes Household members: other Details: brother Marital status: / Number of children: 1 Number of grandchildren: 2 service: No Current occupational status: retired and 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 gender identity: Male Special jose carlos needs: No Agree to transfusion: Yes Physical Exam 2 Const: COMMON NORMALS: no acute distress, patient oriented x3 and alert G ENERAL APPEARANCE: comfortable; not diaphoretic HENMT: COMMON NORMALS: normocephalic, atraumatic and hearing grossly normal bilaterally HEAD & SCALP: normocephalic and atraumatic Resp: COMMON NORMALS: normal respiratory effort, No use of accessory muscles and clear to auscultation bilaterally EFFORT & INSPECTION: Yes able to speak in complete sentences and Yes symmetric chest movement AUSCULTATION: clear to auscultation bilaterally, no wheezes and lung sounds not diminished Cardio: COMMON NORMALS: regular rhythm, S1 normal heart sound present, S2 normal heart sound present and No murmurs present (Cardio) RATE: bradycardic RHYTHM: regular rhythm HEART SOUNDS: S1 normal heart sound present and S2 normal heart sound present GI: COMMON NORMALS: Normal to inspection, nondistended, normoactive bowel sounds present, Soft to palpation and non-tender PALPATION: Yes Soft to palpation Neuro: COMMON NORMALS: patient oriented x3 SENSORIUM/ORIENTATION: Yes alert Course 2 Vital Signs: Vital signs: Vital Signs Temperature 98.2 F 04/13/24 06:51 Pulse Rate 54 L 04/13/24 10:30 Respiratory Rate 17 04/13/24 10:05 Blood Pressure 96/58 04/13/24 10:30 Pulse Oximetry 100 04/13/24 10:30 Oxygen Delivery Me thod Nasal Cannula 04/13/24 10:30 Oxygen Flow Rate 2 04/13/24 10:30 MDM - Syncope Medical Decision Making Pt with PMH T2DM, CVA 11/2023, tobacco use, bladder cancer s/p urostomy in presenting to the emergency department today after syncopal event during preop for carpal tunnel release surgery today found to be bradycardic to 40s and hypotension with MAPs in 50s. EKG with sinus bradycardia. Normoglycemic and normal TSH. CBC unremarkable. CMP notable for JULY on CKD with elevated BUN. No electrolyte derangements. Initial troponin 106, BNP 1225. D-dimer obtained given elevated BNP and initial troponin. UA pending. Patient given 2L NS with improvement in BP, one time dose atropine improved HR slightly. Differential diagnosis initially included heart block, shock, sepsis, hypothyroidism, HF exacerbation. Lab Data 04/13/24 07:11 04/13/24 07:11 Radiology Impressions Chest X-Ray 04/13/24 07:06 Impression: Atherosclerosis. Head CT 04/13/24 07:31 IMPRESSION: 1. No acute intracranial hemorrhage or edema. 2. Cerebral venous air embolism. Moderate amount of air noted in the superior sagittal sinus. There are a few additional foci of air in the cavernous sinuses. This may be due to recent peripheral vein cannulization. Notified Jim Mims MD at 04/13/2024 8:06 AM. Laboratory Results WBC 8.76 10^3/uL (3.29-11.43) 04/13/24 07:11 RBC 4.05 10^6/uL (3.85-5.65) 04/13/24 07:11 Hgb 12.30 g/dL (11.27-16.99) 04/13/24 07:11 Hct 37.4 % (37-53) 04/13/24 07:11 MCV 92.3 fl (82-101) 04/13/24 07:11 MCH 30.4 pg (27-33) 04/13/24 07:11 MCHC 32.9 g/dL (30-55) 04/13/24 07:11 RDW 13.1 % (12.1-15.1) 04/13/24 07:11 Plt Count 157 10^3/cmm (157-399) 04/13/24 07:11 MPV 11.0 fL (7.4-10.4) H 04/13/24 07:11 Neut % (Auto) 56.4 % 04/13/24 07:11 Lymph % (Auto) 29.9 % 04/13/24 07:11 [place] % (Auto) 10.6 % 04/13/24 07:11 Eos % (Auto) 2.1 % 04/13/24 07:11 Baso % (Auto) 0.7 % 04/13/24 07:11 Neut # (Auto) 4.94 10^3/uL (1.8-7.7) 04/13/24 07:11 Lymph # (Auto) 2.6 10^3/uL (0.8-4.8) 04/13/24 07:11 [place] # (Auto) 0.9 10^3/uL (0.2-0.9) 04/13/24 07:11 Eos # (Auto) 0.2 10^3/uL (0.0-0.8) 04/13/24 07:11 Baso # (Auto) 0.1 10^3/uL (0.0-0.1) 04/13/24 07:11 Nucleated RBC % (auto) 0 % 04/13/24 07:11 Nucleated RBCs # 0.0 /100WBC 04/13/24 07:11 D-Dimer 0.50 ug/mLFEU (0-0.59) 04/13/24 07:11 Sodium 135 mmol/L (136-145) L 04/13/24 07:11 Potassium 4.4 mmol/L (3.5-5.1) 04/13/24 07:11 Chloride 103 mmol/L (98-107) 04/13/24 07:11 Carbon Dioxide 18 mmol/L (22-29) L 04/13/24 07:11 Anion Gap 18.4 (5-19) 04/13/24 07:11 BUN 60 mg/dL (8-23) H 04/13/24 07:11 Creatinine 1.7 mg/dL (0.7-1.2) H 04/13/24 07:11 GFR Calculation Not Reportable 04/13/24 07:11 Glucose 284 mg/dL (65-115) H 04/13/24 07:11 POC Glucose 269 mg/dL (70-110) H 04/13/24 07:08 Calculated Osmolality 307 mOsm/kg (285-295) H 04/13/24 07:11 Lactic Acid 1.4 mmol/L (0.5-2.2) 04/13/24 07:11 Calcium 8.0 mg/dL (8.5-10.5) L 04/13/24 07:11 Magnesium 2.0 mg/dL (1.7-2.3) 04/13/24 07:11 Total Bilirubin 0.2 mg/dL (0.15-1.2) 04/13/24 07:11 AST 15 U/L (0-40) 04/13/24 07:11 ALT 16 U/L (0-41) 04/13/24 07:11 Alkaline Phosphatase 74 U/L (40-130) 04/13/24 07:11 Troponin T Baseline 106 ng/L (0-15) H* 04/13/24 07:11 Troponin T 120 Minute 108.5 ng/L (0-15) H 04/13/24 09:11 Delta Troponin T 2.5 ABS# (0-10) 04/13/24 09:11 NT-Pro-B Natriuret Pep 1225 pg/mL (0-125) H 04/13/24 07:11 Total Protein 6.0 g/dL (6.6-8.7) L 04/13/24 07:11 Albumin 3.3 g/dL (3.5-5.2) L 04/13/24 07:11 Globulin 2.7 g/dL (1.3-4.6) 04/13/24 07:11 TSH 1.94 uIU/mL (0.27-4.20) 04/13/24 07:11 Urine Color Yellow (Yellow) 04/13/24 07:45 Urine Appearance Clear (CLEAR) 04/13/24 07:45 Urine pH 7.5 (5-7) 04/13/24 07:45 Ur Specific [place] 1.012 (1.005-1.030) 04/13/24 07:45 Urine Protein 2+ (Negative) A 04/13/24 07:45 Urine Glucose (UA) Trace (Normal) H 04/13/24 07:45 Urine Ketones Negative (Negative) 04/13/24 07:45 Urine Blood 1+ (Negative) A 04/13/24 07:45 Urine Nitrate Negative (Negative) 04/13/24 07:45 Urine Bilirubin Negative (Negative) 04/13/24 07:45 Urine Urobilinogen 0.2 mg/dL (Negative) 04/13/24 07:45 Ur Leukocyte Esterase 2+ (Negative) A 04/13/24 07:45 Urine RBC 6-10 /hpf (0-2) 04/13/24 07:45 Urine WBC 21-50 /hpf (0-5) H 04/13/24 07:45 Ur Squamous Epith Cells 0-5 /hpf (0-5) 04/13/24 07:45 Amorphous Sediment Not Reportable 04/13/24 07:45 Urine Bacteria Trace /hpf (NONE) 04/13/24 07:45 Hyaline Casts 2.46 /lpf 04/13/24 07:45 Discharge Plan Discharge Patient Disposition: Admitted As Inpatient Admit Provider: Kenneth Vasquez Clinical Impression: Hypotension, Near syncope Condition: Stable Coding Level of Care Code ED [employer] Professor for Chg Fwd Comment Resident physician note - Not for billing - Please see attending note from same date Documented by User: Jim Mims MD 04/13/24 10:56 HPI - Syncope 2 General: Chief Complaint: Syncope Stated Complaint: low bp, dizzy Time Seen by Provider: 04/13/24 06:49 Related Data Home Medications Medication Instructions Recorded Confirmed gabapentin 300 mg capsule 300 mg PO TID 07/12/23 04/13/24 paroxetine HCl 10 mg tablet 10 mg PO DAILY 08/08/23 04/13/24 ibuprofen 200 mg tablet (Advil) 800 mg PO Q6H PRN Pain 02/14/24 04/13/24 insulin detemir U-100 100 unit/mL 60 unit SUBCUT BID 04/05/24 04/13/24 (3 mL) subcutaneous pen (Levemir FlexTouch U-100 Insulin) Previous Rx's Medication Instructions Recorded albuterol sulfate 90 mcg/actuation 2 inh inhalation Q4H PRN shortness 12/18/21 aerosol inhaler of breath or wheezing #18 grams fluticasone propionate 50 1 spray intranasal DAILY PRN nasal 03/01/23 mcg/actuation nasal congestion #16 grams spray,suspension (Flonase Allergy Relief) Diabetic shoes #1 ea 07/13/23 ropinirole 4 mg tablet 8 mg (2 x 4 mg) PO BID #180 tabs 01/04/24 blood sugar diagnostic (Blood #200 ea 04/05/24 Glucose Test strips) blood-glucose meter #1 ea 04/05/24 dapagliflozin propanediol 10 mg 10 mg PO DAILY #30 tabs 04/05/24 tablet (Farxiga) famotidine 40 mg tablet 40 mg PO BID #60 tabs 04/05/24 lancets #200 ea 04/05/24 losartan 50 mg tablet 50 mg PO DAILY #30 tabs 04/05/24 sulfamethoxazole 800 1 tab PO BID 5 days #10 tabs 04/10/24 mg-trimethoprim 160 mg tablet (Bactrim DS) Allergies Allergy/AdvReac Type Severity Reaction Status Date / Time Penicillins Allergy Unknown Verified 04/12/24 16:17 PFSH ED 2 PFSH: Medical History 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 BG well controlled with scheduled insulin -consistent carb diet as tolerated Parastomal hernia PETER (obstructive sleep apnea) History of bladder cancer Hx of intestinal obstruction Surgical History History of appendectomy History of cholecystectomy History of shoulder surgery History of urostomy History of esophageal hernia repair Family History Mother Thyroid disease Hypertension Father Hypertension Social History Smoking and tobacco/nicotine status: never used tobacco/nicotine Quit status (tobacco/nicotine): has quit using Year quit tobacco: 2009 Former quit date comment: previously 4 ppd Alcohol intake: former Substance/Drug Use: never Lives independently: Yes Household members: other Details: brother Marital status: / Number of children: 1 Number of grandchildren: 2 service: No 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 occupational status: 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 and 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 gender identity: Male Special jose carlos needs: No Agree to transfusion: Yes Course 2 Vital Signs: Vital signs: Vital Signs Temperature 98.2 F 04/13/24 06:51 Pulse Rate 54 L 04/13/24 10:30 Respiratory Rate 17 04/13/24 10:05 Blood Pressure 96/58 04/13/24 10:30 Pulse Oximetry 100 04/13/24 10:30 Oxygen Delivery Me thod Nasal Cannula 04/13/24 10:30 Oxygen Flow Rate 2 04/13/24 10:30 MDM - Syncope Medical Decision Making Pt with PMH T2DM, CVA 11/2023, tobacco use, bladder cancer s/p urostomy in presenting to the emergency department today after syncopal event during preop for carpal tunnel release surgery today found to be bradycardic to 40s and hypotension with MAPs in 50s. EKG with sinus bradycardia. Normoglycemic and normal TSH. CBC unremarkable. CMP notable for JULY on CKD with elevated BUN. No electrolyte derangements. Initial troponin 106, BNP 1225. D-dimer obtained given elevated BNP and initial troponin. UA pending. Patient given 2L NS with improvement in BP, one time dose atropine improved HR slightly. Differential diagnosis initially included heart block, shock, sepsis, hypothyroidism, HF exacerbation. Patient presents here with hypotension blood pressure has improved after IV fluids does have some dehydration with elevated creatinine and BUN he is also on beta-blockers likely causing some of his bradycardia and hypotension he has no signs of sepsis white count lactate here is normal he has not had any chest pain or shortness of breath D-dimer was negative no signs of pulmonary embolism head CT did show an area embolism likely from an IV start he has no headaches or signs of stroke here his blood pressure has improved here we will admit to ICU Lab Data 04/13/24 07:11 04/13/24 07:11 Radiology Impressions Chest X-Ray 04/13/24 07:06 Impression: Atherosclerosis. Head CT 04/13/24 07:31 IMPRESSION: 1. No acute intracranial hemorrhage or edema. 2. Cerebral venous air embolism. Moderate amount of air noted in the superior sagittal sinus. There are a few additional foci of air in the cavernous sinuses. This may be due to recent peripheral vein cannulization. Notified Jim Mims MD at 04/13/2024 8:06 AM. Laboratory Results WBC 8.76 10^3/uL (3.29-11.43) 04/13/24 07:11 RBC 4.05 10^6/uL (3.85-5.65) 04/13/24 07:11 Hgb 12.30 g/dL (11.27-16.99) 04/13/24 07:11 Hct 37.4 % (37-53) 04/13/24 07:11 MCV 92.3 fl (82-101) 04/13/24 07:11 MCH 30.4 pg (27-33) 04/13/24 07:11 MCHC 32.9 g/dL (30-55) 04/13/24 07:11 RDW 13.1 % (12.1-15.1) 04/13/24 07:11 Plt Count 157 10^3/cmm (157-399) 04/13/24 07:11 MPV 11.0 fL (7.4-10.4) H 04/13/24 07:11 Neut % (Auto) 56.4 % 04/13/24 07:11 Lymph % (Auto) 29.9 % 04/13/24 07:11 [place] % (Auto) 10.6 % 04/13/24 07:11 Eos % (Auto) 2.1 % 04/13/24 07:11 Baso % (Auto) 0.7 % 04/13/24 07:11 Neut # (Auto) 4.94 10^3/uL (1.8-7.7) 04/13/24 07:11 Lymph # (Auto) 2.6 10^3/uL (0.8-4.8) 04/13/24 07:11 [place] # (Auto) 0.9 10^3/uL (0.2-0.9) 04/13/24 07:11 Eos # (Auto) 0.2 10^3/uL (0.0-0.8) 04/13/24 07:11 Baso # (Auto) 0.1 10^3/uL (0.0-0.1) 04/13/24 07:11 Nucleated RBC % (auto) 0 % 04/13/24 07:11 Nucleated RBCs # 0.0 /100WBC 04/13/24 07:11 D-Dimer 0.50 ug/mLFEU (0-0.59) 04/13/24 07:11 Sodium 135 mmol/L (136-145) L 04/13/24 07:11 Potassium 4.4 mmol/L (3.5-5.1) 04/13/24 07:11 Chloride 103 mmol/L (98-107) 04/13/24 07:11 Carbon Dioxide 18 mmol/L (22-29) L 04/13/24 07:11 Anion Gap 18.4 (5-19) 04/13/24 07:11 BUN 60 mg/dL (8-23) H 04/13/24 07:11 Creatinine 1.7 mg/dL (0.7-1.2) H 04/13/24 07:11 GFR Calculation Not Reportable 04/13/24 07:11 Glucose 284 mg/dL (65-115) H 04/13/24 07:11 POC Glucose 269 mg/dL (70-110) H 04/13/24 07:08 Calculated Osmolality 307 mOsm/kg (285-295) H 04/13/24 07:11 Lactic Acid 1.4 mmol/L (0.5-2.2) 04/13/24 07:11 Calcium 8.0 mg/dL (8.5-10.5) L 04/13/24 07:11 Magnesium 2.0 mg/dL (1.7-2.3) 04/13/24 07:11 Total Bilirubin 0.2 mg/dL (0.15-1.2) 04/13/24 07:11 AST 15 U/L (0-40) 04/13/24 07:11 ALT 16 U/L (0-41) 04/13/24 07:11 Alkaline Phosphatase 74 U/L (40-130) 04/13/24 07:11 Troponin T Baseline 106 ng/L (0-15) H* 04/13/24 07:11 Troponin T 120 Minute 108.5 ng/L (0-15) H 04/13/24 09:11 Delta Troponin T 2.5 ABS# (0-10) 04/13/24 09:11 NT-Pro-B Natriuret Pep 1225 pg/mL (0-125) H 04/13/24 07:11 Total Protein 6.0 g/dL (6.6-8.7) L 04/13/24 07:11 Albumin 3.3 g/dL (3.5-5.2) L 04/13/24 07:11 Globulin 2.7 g/dL (1.3-4.6) 04/13/24 07:11 TSH 1.94 uIU/mL (0.27-4.20) 04/13/24 07:11 Urine Color Yellow (Yellow) 04/13/24 07:45 Urine Appearance Clear (CLEAR) 04/13/24 07:45 Urine pH 7.5 (5-7) 04/13/24 07:45 Ur Specific [place] 1.012 (1.005-1.030) 04/13/24 07:45 Urine Protein 2+ (Negative) A 04/13/24 07:45 Urine Glucose (UA) Trace (Normal) H 04/13/24 07:45 Urine Ketones Negative (Negative) 04/13/24 07:45 Urine Blood 1+ (Negative) A 04/13/24 07:45 Urine Nitrate Negative (Negative) 04/13/24 07:45 Urine Bilirubin Negative (Negative) 04/13/24 07:45 Urine Urobilinogen 0.2 mg/dL (Negative) 04/13/24 07:45 Ur Leukocyte Esterase 2+ (Negative) A 04/13/24 07:45 Urine RBC 6-10 /hpf (0-2) 04/13/24 07:45 Urine WBC 21-50 /hpf (0-5) H 04/13/24 07:45 Ur Squamous Epith Cells 0-5 /hpf (0-5) 04/13/24 07:45 Amorphous Sediment Not Reportable 04/13/24 07:45 Urine Bacteria Trace /hpf (NONE) 04/13/24 07:45 Hyaline Casts 2.46 /lpf 04/13/24 07:45 All radiology interpretation(s) finalized by discharge Discharge Plan Discharge Patient Disposition: Admitted As Inpatient Admit Provider: Kenneth Vasquez Clinical Impression: Hypotension, Near syncope Condition: Stable Coding Level of Care Code ED [facility] Pathology Professor for Osiris Fwshantell Comment Resident physician note - Not for billing - Please see attending note from same date
[2024-04-13 07:31] LABS: Lactic Sepsis W/Reflex 1.4 mmol/L (0.5-2.2)
--- NOTE | 2024-04-13 07:31 | CT_ITS ---
WS: [id number] CT HEAD NONCONTRAST HISTORY: syncope TECHNIQUE: Contiguous axial imaging performed through the brain. Bone and soft tissue windows. Sagitt al and coronal reformats reviewed. All CT scans at [facility] use at least one of these dose optimization techniques: automated exposure control; mA and/or kV adjustment per patient size (includ es targeted exams where dose is matched to clinical indication); or iterative reconstruction. DLP: 1032.94 mGy.cm COMPARISON: 12/03/2023 No acute intracranial hemorrhage, midline shift or mass effect. Mild atrophy and small vessel disease. No large prior infarct. Mild cerebellar atrophy. Ventricles: Normal size with no hydrocephalus. There is a moderate amount of air along the superior sagittal sinus. There are a few foci of air also present in the cavernous sinuses. Paranasal sinuses: As visualized are clear. Mastoid air cells: Well pneumatized. Calvarium and scalp: Skull is intact with no soft tissue edema or swelling. CT/CT head wo con* [id number] IMPRESSION: 1. No acute intracranial hemorrhage or edema. 2. Cerebral venous air embolism. Moderate amount of air noted in the superior sagittal sinus. There are a few additional foci of air in the cavernous sinuses . This may be due to recent peripheral vein cannulization. Notified Jim Mims MD at 04/13/2024 8:06 AM.
[2024-04-13] MEDS: sodium chloride 0.9% 1,000 ML 999 ML IV ×3 (07:33→09:10)
[2024-04-13 07:44] LABS: Alanine Aminotransferase 16 U/L (0-41); Albumin Level 3.3 g/dL (3.5-5.2); Alkaline Phosphatase 74 U/L (40-130); Anion Gap 18.4 (5-19); Aspartate Amino Transferase 15 U/L (0-40); Blood Urea Nitrogen 60 mg/dL (8-23); Carbon Dioxide 18 mmol/L (22-29); Chloride 103 mmol/L (98-107); Creatinine Clr Calc Pharmacy 46.8391; Globulin 2.7 g/dL (1.3-4.6); Glucose 284 mg/dL (65-115); NT Pro B Type Natriuretic Pept 1225 pg/mL (0-125); Osmolality Calculated 307 mOsm/kg (285-295); Potassium 4.4 mmol/L (3.5-5.1); Sodium 135 mmol/L (136-145); Thyroid Stimulating Hormone 1.94 uIU/mL (0.27-4.20); Total Bilirubin 0.2 mg/dL (0.15-1.2)
[2024-04-13 08:02] LABS: Troponin(5th) Baseline 106 ng/L (0-15)
[2024-04-13 08:03] LABS: Bilirubin Urine Negative (Negative); Blood Urine 1+ (Negative); Glucose Urine UA Trace (Normal); Ketones Urine Negative (Negative); Leukocyte Esterase Urine 2+ (Negative); Nitrate Urine Negative (Negative); Protein Urine 2+ (Negative); Specific Gravity, Urine 1.012 (1.005-1.030); Urine Appearance Clear (CLEAR); Urine Color Yellow (Yellow); Urobilinogen Urine 0.2 mg/dL (Negative); pH Urine 7.5 (5-7)
--- NOTE | 2024-04-13 08:03 | USCV_ITS ---
Cole Troncoso Age: 73 Gender: M : 1950 Exam Date: 04/13/2024 08:29 Ordering Phys: Jim Mims MD Technologist: Exam Location: [facility] [place] [facility] [place] Indication: chest pain BP: / HR: 48 Rhythm: Sinus Technical Quality: Adequate MEASUREMENTS (Male / Female) Normal Values 2D ECHO LV Diastolic Diameter PLAX 4.1 cm 4.2 - 5.9 / 3.9 - 5.3 cm IVS Diastolic Thickness 1.2 cm 0.6 - 1.0 / 0.6 - 0.9 cm IVS Systolic Thickness 1.6 cm LVPW Diastolic Thickness 1.3 cm 0.6 - 1.0 / 0.6 - 0.9 cm LVPW Systolic Thickness 1.9 cm LVOT Diameter 2.0 cm LV Ejection Fraction 2D Teich 68.6 % LV Ejection Fraction MOD 4C 62.6 % LV Ejection Fraction MOD 2C 61.4 % LV Ejection Fraction 2C AL 58.2 % LA Diameter 3.4 cm RA Systolic Volume 4C AL 48.5 ml RA Systolic Volume 4C MOD 46.7 ml Aorta at Sinotubular Diameter 2.8 cm IVC Diameter 2.0 cm M-MODE LA Ao Ratio MM 1.0 AV Cusp Separation MM 2.5 cm DOPPLER AV Peak Velocity 80.0 cm/s LVOT Peak Velocity 63.0 cm/s AV Area Cont Eq vti 3.4 cm squared AV Area Cont Eq pk 2.5 cm squared MV Area PHT 3.5 cm squared Mitral E to A Ratio 1.2 TV Peak Velocity 193.5 cm/s TR Peak Velocity 199.0 cm/s TR Peak Gradient 15.8 mmHg TV Peak E Velocity 86.0 cm/s FINDINGS Left Ventricle Normal left ventricular size, systolic function and wall thickness, with no regional wall motion abnormalities. Left ventricular ejection fraction is estimated at 60%. Grade II/IV diastolic dysfunction, moderately elevated filling pressures. Right Ventricle The right ventricle is normal in size and function. Right Atrium The right atrium is normal in size. Left Atrium The left atrium is normal in size. Mitral Valve Structurally normal mitral valve without significant stenosis or prolapse. There is no mitral regurgitation. Aortic Valve Structurally normal aortic valve without significant sclerosis or stenosis. There is no aortic regurgitation. Tricuspid Valve Structurally normal tricuspid valve without significant stenosis or regurgitation. Pulmonary artery systolic pressure is normal. Pulmonic Valve Structurally normal pulmonic valve without significant stenosis. There is no pulmonic regurgitation. Pericardium Normal pericardium without effusion. Aorta Normal ascending aorta dimension. IVC The inferior vena cava appears normal. CONCLUSIONS Normal left ventricular size, systolic function and wall thickness, with no regional wall motion abnormalities. Left ventricular ejection fraction is estimated at 60%. Grade II/IV diastolic dysfunction, moderately elevated filling pressures. No significant chamber abnormalities. There is no pericardial effusion. Right atrial pressure is around 5 mm of mercury. Costa Hollis MD (Electronically Signed) Final Date: 13 April 2024 09:36 S
[2024-04-13 08:08] LABS: Add Urine Microscopic? YES; Bacteria Urine Trace /hpf; Hyaline Casts Urine 2.46 /lpf; Squamous Epithelial Cell Urine 0-5 /hpf (0-5); WBC Urine 21-50 /hpf (0-5)
[2024-04-13 08:14] LABS: Add Urine Culture? Yes
--- NOTE | 2024-04-13 08:18 | PC.NURSE ---
PATIENT CAME FROM SURGERY WITH IV IN LEFT FOREARM AND 1 L NS HANGING. CONTINUED FLUIDS UPON PATIENT ARRIVAL.
[2024-04-13] MEDS: cefTRIAXone 1,000 mg SDV 1000 MG IVP (09:37)
[2024-04-13 09:45] LABS: Troponin 5 2HR Delta 2.5 ABS# (0-10)
[2024-04-13 09:53] LABS: Troponin 5 2HR 108.5 ng/L (0-15)
--- NOTE | 2024-04-13 10:23 | ECG_ITS ---
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 Measurements Intervals Emma Rate: 51 P: 14 SD: 160 QRS: -20 QRSD: 94 T: 28 QT: 477 QTc: 443 Interpretive Statements SINUS BRADYCARDIA LOW QRS VOLTAGE IN PRECORDIAL LEADS [QRS DEFLECTION < 1.0 mV IN CHEST LEADS] INCOMPLETE RIGHT BUNDLE BRANCH BLOCK [90+ ms QRS DURATION, TERMINAL R IN V1/V2, 40+ ms S IN I/aVL/V4/V5/V6] Compared to ECG 04/13/2024 06:59:16 Low QRS voltage now present Incomplete right bundle-branch block now present Right bundle-branch block no longer present Electronically Signed On 04-15-2024 23:31:06 [employer] TECH by Bassam Tony M.D. [email or web address]
[2024-04-13 11:23] LABS: Glucose Point of Care 251 mg/dL (70-110)
[2024-04-13 11:25] LABS: Erythrocyte Sedimentation Rate 5 mm/hr (0-10)
[2024-04-13] MEDS: heparin 5,000 unit/mL INJ 1 mL IVP (11:33)
[2024-04-13] MEDS: aspirin 81 mg EC Tablet PO (11:35)
[2024-04-13] MEDS: pantoprazole 40 mg SDV IVP ×2 (11:35→23:40)
[2024-04-13] MEDS: meropenem 1,000 mg SDV 1000 MG IVP ×2 (11:36→23:41)
[2024-04-13] MEDS: heparin drip 25,000 UNIT/500 ML PREMIX 28 UNIT IV (11:36)
[2024-04-13] MEDS: water for injection-sterile 10 ML 10000 ML (11:50)
[2024-04-13 11:57] LABS: Procalcitonin 0.09 ng/mL (0-0.5); Thyroid Stimulating Hormone 2.04 uIU/mL (0.27-4.20)
[2024-04-13 12:08] LABS: C Reactive Protein 4.4 mg/L (0.0-4.9)
--- NOTE | 2024-04-13 12:42 | P.CONIM_ITS ---
<Statement entered by Bassam Tony M.D - 04/13/24 23:13> Patient was evaluated and cared for in conjunction with an advanced practice practitioner. I personally examined the patient and reviewed the chart and all pertinent data including imaging, telemetry, and laboratory results. I discussed the patient in detail with the advanced practice practitioner. Please see their note for complete consult note, results and agreed upon plan of care for the patient. GENERAL: Patient is alert and oriented HEART: Regular S1 and S2 LUNGS: Clear to auscultation EXTREMITIES: Lower extremities with no edema 1) Troponin elevation 2) Hypotension 3) Bradycardia 4) Presyncope Troponin elevation likely secondary to demand ischemia however will perform stress test to rule out ischemia Continue tele monitoring Thank you for involving us with care of this patient. Providers/Reason For Consult 2 Consulting Physician/Specialty*: Dr Tony, cardiology Reason for Consult*: hypotension, bradycardia, possible syncope, NSTEMI Requesting Physician: Dr. 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, follows with Dr. Berry). He was to have carpal tunnel surgery today, but was found to have hypotension 88/52 with sinus bradycardia, heart rate 46 bpm. He went to the emergency room for evaluation. EKG showed sinus bradycardia, heart rate 46 bpm. He had recently been switched from lisinopril to losartan, has been on metoprolol tartrate 12.5 mg twice a day with most recent dose taken today. He notes his usual heart rate is 80 to 100 bpm. He was rehydrated with IV fluid and hypotension improved. [place] to have cerebral venous air embolism from an IV start, evidenced on CT of the head. He was admitted to ICU. Creatinine 1.7-baseline 1.2-1.3. He has not seen a avionics mechanic in the past however he does see a urologist. Baseline troponin 106 -> 108 ->71. BNP 1225. UA shows UTI. TSH normal. Urine drug screen negative. At the time of the episode he did not have any chest pain and has not had any in the recent months. He does have some shortness of breath with exertion but it has been stable over the last 6 months, and has COPD as well. He reports less energy than usual in the last month however does not feel like it is declining quickly. Review of Systems 2 Const: Denies: fever(s), chills, change in weight, fatigue or diaphoresis Eyes: Denies: change in vision ENMT: Denies: epistaxis Card: Denies: chest pain, palpitations, irregular heart rhythm, edema, syncope, pre-syncope, dyspnea on exertion, orthopnea or leg pain with exertion Resp: Denies: dyspnea, productive cough or wheezing GI: Denies: nausea, vomiting, hematemesis, hematochezia or melena : Denies: hematuria Musc: Denies: extremity swelling Alfredo/Lymph: Denies: easy bruising or easy bleeding Medications/Allergies Home Medications Medication Instructions Recorded Confirmed Last Taken Type albuterol sulfate 90 mcg/actuation 2 inh inhalation Q4H PRN shortness 12/18/21 04/13/24 04/12/24 Rx aerosol inhaler of breath or wheezing #18 grams fluticasone propionate 50 1 spray intranasal DAILY PRN nasal 03/01/23 04/13/24 04/11/24 Rx mcg/actuation nasal congestion #16 grams spray,suspension (Flonase Allergy Relief) gabapentin 300 mg capsule 300 mg PO TID 07/12/23 04/13/24 04/12/24 History Diabetic shoes #1 ea 07/13/23 04/13/24 Unknown Rx paroxetine HCl 10 mg tablet 10 mg PO DAILY 08/08/23 04/13/24 04/12/24 History ropinirole 4 mg tablet 8 mg (2 x 4 mg) PO BID #180 tabs 01/04/24 04/13/24 04/12/24 Rx ibuprofen 200 mg tablet (Advil) 800 mg PO Q6H PRN Pain 02/14/24 04/13/24 02/14/24 History blood sugar diagnostic (Blood #200 ea 04/05/24 04/13/24 Unknown Rx Glucose Test strips) blood-glucose meter #1 ea 04/05/24 04/13/24 Unknown Rx dapagliflozin propanediol 10 mg 10 mg PO DAILY #30 tabs 04/05/24 04/13/2425 Rx tablet (Farxiga) famotidine 40 mg tablet 40 mg PO BID #60 tabs 04/05/24 04/13/24 04/12/24 Rx insulin detemir U-100 100 unit/mL 60 unit SUBCUT BID 04/05/24 04/13/24 04/12/24 History (3 mL) subcutaneous pen (Levemir FlexTouch U-100 Insulin) lancets #200 ea 04/05/24 04/13/24 Unknown Rx losartan 50 mg tablet 50 mg PO DAILY #30 tabs 04/05/24 04/13/24 04/12/24 Rx sulfamethoxazole 800 1 tab PO BID 5 days #10 tabs 04/10/24 04/13/24 04/12/24 Rx mg-trimethoprim 160 mg tablet (Bactrim DS) Allergies Allergy/AdvReac Type Severity Reaction Status Date / Time Penicillins Allergy Unknown Verified 04/12/24 16:17 Current Medications Generic Name Dose Route Start Last Admin Trade Name Freq PRN Reason Stop Dose Admin Aspirin 81 mg 04/13/24 11:15 04/13/24 11:35 Aspirin 81 Mg Ec Tablet PO 81 mg DAILY RAFAELA Administration Heparin Sodium/Sodium Chloride 25,000 unit in 500 mls @ 0 mls/hr 04/13/24 11:15 04/13/24 11:36 Heparin Drip IV 14.36 unit/kg/hr CONT RAFAELA 28 mls/hr Administration Protocol Per Protocol Meropenem 1,000 mg 04/13/24 11:15 04/13/24 11:36 Meropenem 1,000 Mg Sdv IVP 1,000 mg Q12H RAFAELA Administration Protocol Pantoprazole Sodium 40 mg 04/13/24 11:15 04/13/24 11:35 Pantoprazole 40 Mg Sdv IVP 40 mg Q12H RAFAELA Administration PFSH Acute 2 PFSH: Medical History 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 BG well controlled with scheduled insulin -consistent carb diet as tolerated Parastomal hernia PETER (obstructive sleep apnea) History of bladder cancer Hx of intestinal obstruction Surgical History History of appendectomy History of cholecystectomy History of shoulder surgery History of urostomy History of esophageal hernia repair Family History Mother Thyroid disease Hypertension Father Hypertension Social History Smoking and tobacco/nicotine status: never used tobacco/nicotine Quit status (tobacco/nicotine): has quit using Year quit tobacco: 2009 Former quit date comment: previously 4 ppd Alcohol intake: former Substance/Drug Use: never Lives independently: Yes Household members: other Details: brother Marital status: / Number of children: 1 Number of grandchildren: 2 service: No Current occupational status: retired and 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 gender identity: Male Special jose carlos needs: No Agree to transfusion: Yes Vitals/I&O/Wt Last Vital Signs Temp 98.2 F 04/13/24 06:51 Pulse 54 L 04/13/24 11:11 Resp 20 H 04/13/24 10:30 BP 96/58 04/13/24 11:15 Pulse Ox 100 04/13/24 10:53 O2 Del Method Nasal Cannula 04/13/24 10:45 O2 Flow Rate 2 04/13/24 10:30 04/12/24 04/13/24 04/13/24 22:59 06:59 14:59 Intake Total 3399.6 / 3399.6 Balance 3399.6 / 3399.6 Weight last 48 hrs Weight 215 lb Weight 215 lb Physical Exam 2 Const: COMMON NORMALS: no acute distress and patient oriented x3 GENERAL APPEARANCE: cooperative and comfortable ORIENTATION/CONSCIOUSNESS: Yes awake, Yes oriented to person, Yes oriented to place and Yes oriented to time Chest: COMMONS NORMALS: normal inspection of the chest and normal palpation of entire chest wall CHEST: Yes Symmetrical chest wall rise Resp: COMMON NORMALS: normal respiratory effort, No retractions, No use of accessory muscles and clear to auscultation bilaterally EFFORT & INSPECTION: Yes symmetric chest movement AUSCULTATION: clear to auscultation bilaterally Cardio: COMMON NORMALS: regular rate, regular rhythm, S1 normal heart sound present, S2 normal heart sound present, No gallops present (Cardio), No clicks present (Cardio), No murmurs present (Cardio) and No rub (Cardio) RATE: r egular rate RHYTHM: regular rhythm HEART SOUNDS: S1 normal heart sound present and S2 normal heart sound present PERIPHERAL PULSES: radial pulses present Extremity: COMMON NORMALS: no pedal edema Neuro: COMMON NORMALS: patient oriented x3 and moves all extremities S ENSORIUM/ORIENTATION: Yes oriented to person, Yes oriented to place and Yes oriented to time Data 04/13/24 07:11 04/13/24 07:11 A&P Assessment and plan (1) NSTEMI (non-ST elevated myocardial infarction): Due to the troponin elevation and possible syncope will order Lexiscan stress test to assess for myocardial ischemia to be performed tomorrow. Hold metoprolol for now. Continue aspirin, atorvastatin. He is currently on a heparin drip. (2) Bradycardia: Hold beta-alea (3) Hypotension: (4) Insulin dependent type 2 diabetes mellitus, uncontrolled: (5) Hemorrhagic stroke: Consult Attestations 2 Medical Necessity Statement: Ischemic workup for possible syncope, troponin elevation Coding Level of Care Code 47302 Diagnoses NSTEMI (non-ST elevated myocardial infarction) I21.4 Bradycardia R00.1 Hypotension I95.9 Insulin dependent type 2 diabetes mellitus, uncontrolled Hemorrhagic stroke I61.9
[2024-04-13] MEDS: insulin lispro 100 unit/1 mL SUBCUT ×2 (13:01→17:00)
--- NOTE | 2024-04-13 13:28 | P.HP_ITS ---
Providers/Chief Complaint 2 Admitting Physician: Kenneth Vasquez MD Primary Care Provider: Ivett Still MD Chief Complaint: low bp, dizzy History of Present Illness Cole Troncoso is a 73 year old male with a past medical history of brainstem stroke, with hemorrhage, history of neuropathy in his hands, neuropathy in his feet, sleep apnea, CKD stage II, type 2 diabetes mellitus, history of bladder cancer, status post urostomy, who presents to [facility] due to weakness, fatigue, low blood pressures, low heart rate. Currently patient is alert oriented x 3, following all commands, bradycardic heart rates in the 50s, blood pressures are soft, 90s over 60s, MAP is 65 he is on 2 L, temperature 98.2 is at bedside. Patient's tells me that about a week ago, Cole was feeling lightheaded, he was on metoprolol, and his primary care provider stopped the metoprolol and switched him to losartan. He also had a left L3 and L4 transforaminal RUY by Dr. Youssef, he does see that after the procedure he was in the postprocedural waiting room and his blood pressures were on the lower end, and every time the nurse will check the continue to slowly drop but he denied any lightheadedness or dizziness at that time. Does tell me over the last few days he just has been feeling well, intermittent dizziness, fatigue, malaise no headache, no blurry vision, no chest pain, no facial droop no slurring of words, no focal weakness, his family thought potentially could be the losartan making him feel sick and dizzy. Patient had come to preop early this morning, he tells me he was intermittently dizzy, feeling unwell, but no other significant symptomatology. When he was checked into preop, he was noted to have 88/52, pulse rate 67, sinus sent to the emergency room for evaluation. He denies any syncopal episodes. Emergency room he was given a 3 L bolus, found to have sinus bradycardia, troponin 106, EKG shows sinus bradycardia, his head CT shows cerebral venous air embolism, moderate amount of air noted in the superior sagittal sinus, with few additional foci of air in the cavernous sinus. Review of Systems 2 Const: Reports: fatigue and malaise; Denies: fever(s) or chills Card: Denies: chest pain Resp: Denies: dyspnea GI: Denies: abdominal pain : Denies: flank pain Musc: Reports: back pain; Denies: neck pain Skin/Breast: Denies: rash Neuro: Reports: numbness in extremities and dizziness; Denies: headache(s), weakness in extremities, difficulty walking or behavioral changes Psych: Denies: anxiety Endo: Denies: polyuria Medications/Allergies Home Medications Medication Instructions Recorded Confirmed Last Taken Type albuterol sulfate 90 mcg/actuation 2 inh inhalation Q4H PRN shortness 12/18/21 04/13/24 04/12/24 Rx aerosol inhaler of breath or wheezing #18 grams fluticasone propionate 50 1 spray intranasal DAILY PRN nasal 03/01/23 04/13/24 04/11/24 Rx mcg/actuation nasal congestion #16 grams spray,suspension (Flonase Allergy Relief) gabapentin 300 mg capsule 300 mg PO TID 07/12/23 04/13/24 04/12/24 History Diabetic shoes #1 ea 07/13/23 04/13/24 Unknown Rx paroxetine HCl 10 mg tablet 10 mg PO DAILY 08/08/23 04/13/24 04/12/24 History ropinirole 4 mg tablet 8 mg (2 x 4 mg) PO BID #180 tabs 01/04/24 04/13/24 04/12/24 Rx ibuprofen 200 mg tablet (Advil) 800 mg PO Q6H PRN Pain 02/14/24 04/13/24 02/14/24 History blood sugar diagnostic (Blood #200 ea 04/05/24 04/13/24 Unknown Rx Glucose Test strips) blood-glucose meter #1 ea 04/05/24 04/13/24 Unknown Rx dapagliflozin propanediol 10 mg 10 mg PO DAILY #30 tabs 04/05/24 04/13/24 04/12/24 Rx tablet (Farxiga) famotidine 40 mg tablet 40 mg PO BID #60 tabs 04/05/24 04/13/24 04/12/24 Rx insulin detemir U-100 100 unit/mL 60 unit SUBCUT BID 04/05/24 04/13/24 04/12/24 History (3 mL) subcutaneous pen (Levemir FlexTouch U-100 Insulin) lancets #200 ea 04/05/24 04/13/24 Unknown Rx losartan 50 mg tablet 50 mg PO DAILY #30 tabs 04/05/24 04/13/24 04/12/24 Rx sulfamethoxazole 800 1 tab PO BID 5 days #10 tabs 04/10/24 04/13/24 04/12/24 Rx mg-trimethoprim 160 mg tablet (Bactrim DS) Allergies Allergy/AdvReac Type Severity Reaction Status Date / Time Penicillins Allergy Unknown Verified 04/12/24 16:17 PFSH Acute 2 PFSH: Medical History 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 BG well controlled with scheduled insulin -consistent carb diet as tolerated Parastomal hernia PETER (obstructive sleep apnea) History of bladder cancer Hx of intestinal obstruction Surgical History History of appendectomy History of cholecystectomy History of shoulder surgery History of urostomy History of esophageal hernia repair Family History Mother Thyroid disease Hypertension Father Hypertension Social History Smoking and tobacco/nicotine status: never used tobacco/nicotine Quit status (tobacco/nicotine): has quit using Year quit tobacco: 2009 Former quit date comment: previously 4 ppd Alcohol intake: former Substance/Drug Use: never Lives independently: Yes Household members: other Details: brother Marital status: / Number of children: 1 Number of grandchildren: 2 service: No Current occupational status: 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 and 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 gender identity: Male Special jose carlos needs: No Agree to transfusion: Yes Vitals/I&O/Wt Last Vital Signs Temp 98.2 F 04/13/24 06:51 Pulse 57 L 04/13/24 12:48 Resp 21 H 04/13/24 12:45 BP 104/74 04/13/24 12:45 Pulse Ox 94 04/13/24 12:48 O2 Del Method Nasal Cannula 04/13/24 12:48 O2 Flow Rate 2 04/13/24 12:48 04/12/24 04/13/24 04/13/24 22:59 06:59 14:59 Intake Total 3759.6 / 3759.6 Output Total 400 / 400 Balance 3359.6 / 3359.6 Weight last 48 hrs Weight 97.522 kg Weight 97.522 kg Physical Exam 2 Const: COMMON NORMALS: no acute distress and patient oriented x3 Eye: COMMON NORMALS: Equal, round and reactive pupils present and EOMs intact bilaterally Neck/C-Spine: COMMON NORMALS: full ROM and no lymphadenopathy Resp: COMMON NORMALS: normal respiratory effort, No retractions, No use of accessory muscles and clear to auscultation bilaterally AUSCULTATION: clear to auscultation bilaterally Cardio: COMMON NORMALS: no JVD, regular rate, regular rhythm, S1 normal heart sound present and S2 normal heart sound present RATE: regular rate RHYTHM: regular rhythm HEART SOUNDS: S1 normal heart sound present and S2 normal heart sound present GI: COMMON NORMALS: Normal to inspection, nondistended, normoactive bowel sounds present, Soft to palpation and non-tender Extremity: COMMON NORMALS: no pedal edema Neuro: COMMON NORMALS: patient oriented x3, CN's II-XII intact bilaterally and moves all extremities Psych: COMMON NORMALS: mental status grossly normal Data 04/13/24 07:11 04/13/24 07:11 A&P Assessment and plan (1) Air embolism: (2) Hypotension: (3) NSTEMI (non-ST elevated myocardial infarction): (4) DM type 2 (diabetes mellitus, type 2): (5) Bradycardia: Plan NSTEMI -Serial EKGs, serial reports, telemetry monitoring -Cardiac echo CONCLUSIONS Normal left ventricular size, systolic function and wall thickness, with no regional wall motion abnormalities. Left ventricular ejection fraction is estimated at 60%. Grade II/IV diastolic dysfunction, moderately elevated filling pressures. No significant chamber abnormalities. There is no pericardial effusion. Right atrial pressure is around 5 mm of mercury. -No chest pain complaints -Plan -Aspirin, statin, heparin drip -Cardiology consulted Acute kidney injury on CKD, creatinine 1.7 -Monitor UTI, with history of urostomy -No abdominal pain complaints -Zosyn ordered -CT abdomen Hypotension, shock -Potentially related to cerebral venous air embolism -Lactic acid within normal limits -Blood cultures -Urine culture -Monitor closely in ICU Bradycardia -Potentially related to beta-alea however patient reports he stopped taking the beta-alea about a week ago -No evidence of AV block -Continue telemetry monitoring Cerebral venous air embolism -CT head -Moderate amount of air noted in the superior sagittal sinus. There are a few additional foci of air in the cavernous sinuses -No headache, blurry vision, no nausea, no vomiting, no focal weakness -Spoke to neurology -Spoke to Dr. Youssef -Spoke to anesthesia -Etiology unclear -could be peripheral vein cannulation -Did have L4-L5 transforaminal RUY a few days ago -No trauma reported -Continue to conservatively manage -Repeat head CT in 2448 hrs. History of hemorrhagic brainstem CVA, monitor Attestations 2 Medical Necessity Statement*: Patient requires hospitalization for NSTEMI, cerebral venous air embolism, moderate to moderate AR in superior sagittal sinus, cerebral venous air embolism, UTI, acute kidney injury, hypotension, bradycardia Diagnoses Air embolism T79.0XXA Hypotension I95.9 NSTEMI (non-ST elevated myocardial infarction) I21.4 DM type 2 (diabetes mellitus, type 2) E11.9 Bradycardia R00.1
--- NOTE | 2024-04-13 13:29 | ECG_ITS ---
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 Measurements Intervals [place] Rate: 57 P: 99 DC: 158 QRS: -18 QRSD: 132 T: 26 QT: 460 QTc: 450 Interpretive Statements SINUS BRADYCARDIA RIGHT BUNDLE BRANCH BLOCK [120+ ms QRS DURATION, UPRIGHT V1, 40+ ms S IN I/aVL/V4/V5/V6] Compared to ECG 04/13/2024 10:23:45 Right bundle-branch block now present Incomplete right bundle-branch block no longer present Electronically Signed On 04-15-2024 23:30:16 COMPUTER BUILDER by Bassam Tony M.D. [id number]
[2024-04-13 13:39] LABS: INR 1.09 (0.8-1.2)
[2024-04-13 13:44] LABS: Troponin 5 6HR 71.23 ng/L (0-15)
[2024-04-13 13:45] LABS: Troponin 5 6HR Delta -34.77 ng/L (0-12)
[2024-04-13] MEDS: gabapentin 300 mg Capsule PO ×2 (14:09→20:03)
--- NOTE | 2024-04-13 14:41 | CT_ITS ---
WS: [id number] CT CHEST, ABDOMEN AND PELVIS WITHOUT CONTRAST HISTORY: hypotension TECHNIQUE: Contiguous 5 mm axial imaging performed through the chest, abdomen and pelvis without IV c ontrast, oral contrast has not been provided. Coronal and sagittal reformats chest. Coronal and sagit dorian reformats through the abdomen and pelvis. All CT scans at [facility] use at least one of these dose optimization techniques: automated exposure control; mA and/or kV adjustment per patient s ize (includes targeted exams where dose is matched to clinical indication); or iterative reconstructi on. CONTRAST: None DLP: 1139.73 mGy.cm COMPARISON: 09/18/[address]: No pulmonary mass, pneumonia or nodules. No pericardial or pleural effusions. Mild atherosc lerosis aorta. Heavy dense calcification in the LAD. Heart size is slightly enlarged. No mediastinal or hilar adenopathy. Abdomen CT: Mild hepatic steatosis and hepatomegaly. Prior cholecystectomy. No common bile duct dilat ation. Normal pancreas and spleen. No adrenal mass. Nonobstructing bilateral renal calculi. Mild bila teral perinephric stranding. Moderate atherosclerosis abdominal aorta. Stomach is mildly distended with food products. 5 mm focus of increased density in the dependent port ion of the stomach. This may be a small polyp versus medicinal tablet. No small bowel obstruction or colon obstruction. RIGHT lower quadrant urinary diversion is noted. Pelvic CT: Prior cystectomy. Ostomy site with large parastomal hernia in the RIGHT lower quadrant is reidentified. No obvious obstruction. There is a small amount of increased fluid in the hernia sac sm all bowel loop. Similar to prior studies. No free fluid in the pelvis. No adenopathy. CT/[place] [id number] IMPRESSION: 1. Status post cystectomy with RIGHT lower quadrant urinary diversion, ostomy and large parastomal hernia with herniated loops of small bowel and cecum. No o bvious obstruction. 2. No hydronephrosis. 3. Prior cholecystectomy. 4. No pneumonia. No mediastinal or hilar adenopathy. 5. Mild cardiomegaly.
[2024-04-13 15:28] LABS: Alcohol Level < 10 mg/dL (0-10)
[2024-04-13 15:38] LABS: Amphetamines Screen Urine Negative (Negative); Barbiturates Screen Urine Negative (Negative); Benzodiazepines Screen Urine Negative (Negative); Cocaine Screen Urine Negative (Negative); Opiate Screen Urine Negative (Negative); PCP Screen Urine Negative (Negative); THC Screen Urine Negative (Negative)
[2024-04-13 16:36] LABS: Glucose Point of Care 230 mg/dL (70-110)
[2024-04-13] MEDS: ropinirole 2 mg Tablet 8 MG PO (17:00)
--- NOTE | 2024-04-13 17:07 | ECG_ITS ---
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
--- NOTE | 2024-04-13 17:09 | PC.NURSE ---
had episode of vtach doctor notified monitor vs at this time
[2024-04-13] MEDS: atorvastatin 40 mg Tablet PO (20:03)
[2024-04-13 20:51] LABS: Glucose Point of Care 164 mg/dL (70-110)
[2024-04-13 21:52] LABS: Partial Thromboplastin Time 144.8 SECONDS (23.9-36.7)
[2024-04-13 22:43] LABS: Partial Thromboplastin Time 122.3 SECONDS (23.9-36.7)
[2024-04-14] VITALS (34 sets, daily range): BP systolic 100–160; BP diastolic 54–101; PULSE 52–78; RESP 14–23; TEMP 36.5–36.7; O2SAT 91–99; BMI 30.9
[2024-04-14 05:53] LABS: Partial Thromboplastin Time 157.9 SECONDS (23.9-36.7)
[2024-04-14] MEDS: regadenoson 0.4 Mg/5 ml Syringe IVP (07:04)
--- NOTE | 2024-04-14 07:56 | PC.NURSE ---
Addendum entered by Faye Borrego RN 04/14/24 08:01: per patient , his urostomy bag was emptied at the stress test, it was half full. Amount unknown. Original Note: Pt arrives back to unit from stress test. No complaints of chest penny, dizziness, etc.
[2024-04-14 08:43] LABS: Basophils # 0.1 10^3/uL (0.0-0.1); Basophils % 0.7 %; Eosinophils # 0.2 10^3/uL (0.0-0.8); Eosinophils % 2.4 %; Hematocrit 42.9 % (37-53); Lymphocytes # 1.9 10^3/uL (0.8-4.8); Mean Corpuscular HGB Conc 32.4 g/dL (30-55); Mean Corpuscular Hemoglobin 30.3 pg (27-33); Mean Corpuscular Volume 93.7 fl (82-101); Mean Platelet Volume 11.2 fL (7.4-10.4); Monocytes # 0.6 10^3/uL (0.2-0.9); Monocytes % 8.5 %; Neutrophils % 60.1 %; Nucleated Red Blood Cells % 0 %; Platelet Count 145 10^3/cmm (157-399); Red Blood Count 4.58 10^6/uL (3.85-5.65); Red Cell Distribution Width 13.4 % (12.1-15.1); White Blood Count 6.67 10^3/uL (3.29-11.43)
[2024-04-14 08:49] LABS: Glucose Point of Care 266 mg/dL (70-110)
[2024-04-14] MEDS: gabapentin 300 mg Capsule PO ×3 (09:02→21:27)
[2024-04-14] MEDS: ropinirole 2 mg Tablet 8 MG PO ×2 (09:02→17:46)
[2024-04-14] MEDS: PARoxetine 20 mg Tablet 10 MG PO (09:02)
[2024-04-14] MEDS: aspirin 81 mg EC Tablet PO (09:02)
[2024-04-14] MEDS: insulin lispro 100 unit/1 mL SUBCUT ×3 (09:04→17:45)
[2024-04-14 09:06] LABS: Troponin T (5th) Once 78 ng/L (0-15)
[2024-04-14 09:14] LABS: Alanine Aminotransferase 27 U/L (0-41); Albumin Level 3.6 g/dL (3.5-5.2); Alkaline Phosphatase 85 U/L (40-130); Aspartate Amino Transferase 19 U/L (0-40); Blood Urea Nitrogen 52 mg/dL (8-23); C Reactive Protein 3.3 mg/L (0.0-4.9); Calcium 8.3 mg/dL (8.5-10.5); Carbon Dioxide 20 mmol/L (22-29); Chloride 105 mmol/L (98-107); Creatinine Clr Calc Pharmacy 51.1573; Glucose 292 mg/dL (65-115); Osmolality Calculated 305 mOsm/kg (285-295); Sodium 135 mmol/L (136-145); Thyroid Stimulating Hormone 1.76 uIU/mL (0.27-4.20); Total Bilirubin 0.2 mg/dL (0.15-1.2); Total Protein 6.6 g/dL (6.6-8.7)
--- NOTE | 2024-04-14 09:49 | CT_ITS ---
WS: [id number] CT HEAD NONCONTRAST HISTORY: Cerebral venous air embolism f/u TECHNIQUE: Contiguous axial imaging performed through the brain. Bone and soft tissue windows. Sagitt al and coronal reformats reviewed. All CT scans at [facility] use at least one of these dose optimization techniques: automated exposure control; mA and/or kV adjustment per patient size (includ es targeted exams where dose is matched to clinical indication); or iterative reconstruction. DLP: 1072.20 mGy.cm COMPARISON: 04/13/2024 Complete resolution of the recently described central venous air embolism noted within the superior s agittal sinus on 04/13/2024. There is no residual intracranial air. No air in the cavernous sinuses. No acute intracranial hemorrhage, midline shift or mass effect. Mild atrophy and small vessel disease. No prior infarct. Ventricles: Normal size with no hydrocephalus. No inferior displacement of the cerebellar tonsils. Paranasal sinuses: As visualized are clear. Mastoid air cells: Well pneumatized. Calvarium and scalp: Skull is intact with no soft tissue edema or swelling. Intracranial carotid artery atherosclerosis. CT/CT head wo con* [id number] IMPRESSION: Complete interval resolution of the previously noted air embolism along the sup erior sagittal sinus and cavernous sinuses. No residual intracranial air.
[2024-04-14 10:26] LABS: Partial Thromboplastin Time 119.6 SECONDS (23.9-36.7)
--- NOTE | 2024-04-14 11:03 | P.PN_ITS ---
<Statement entered by Bassam Tony M.D - 04/14/24 20:55> Patient was evaluated and cared for in conjunction with an advanced practice practitioner. I personally examined the patient and reviewed the chart and all pertinent data including imaging, telemetry, and laboratory results. I discussed the patient in detail with the advanced practice practitioner. Please see their note for complete progress note, results and agreed upon plan of care for the patient. Patient feeling well. Had stress test that is abnormal. Plan for coronary angiogram tomorrow. Discussed with neurology to have clearance for putting patient on antiplatelet/anticoagulation during and after procedure as has history hemorrhagic stroke GENERAL: Patient is alert and oriented HEART: Regular S1 and S2 LUNGS: Clear to auscultation bilaterally EXTREMITIES: Lower extremities with no edema Subjective 2 Subjective: Patient was sitting up in bed eating breakfast this morning after his stress test. No chest pain or shortness of breath. Heart rates this morning have ranged 60 to 70 bpm blood pressures in the 120s systolic. Lexiscan stress test shows a large area of prior infarct with medium sized area of marshall-infarct ischemia in the inferior and inferolateral michelle, TID ratio 1.57. Discussed coronary angiogram with his neurologist Dr. Berry, she is in agreement that he can be anticoagulated given his hemorrhagic stroke was over 3 months ago and follow-up MRI angiogram in January showed minimal intracranial disease. Plan for coronary angiogram tomorrow. Vitals/I&O/Wt Last Vital Signs Temp 97.7 F 04/14/24 08:00 Pulse 61 04/14/24 08:00 Resp 14 04/14/24 08:00 BP 126/80 04/14/24 08:00 Pulse Ox 98 04/14/24 08:00 O2 Del Method Room Air 04/14/24 08:00 O2 Flow Rate 2 04/13/24 12:48 04/13/24 04/14/24 04/14/24 22:59 06:59 14:59 Intake Total 120 / 4351.333 471.733 / 4351.333 Output Total 1125 / 3700 2175 / 3700 350 / 350 Balance -1005 / 651.333 -1703.267 / 651.333 -350 / -350 Weight last 48 hrs Weight 228 lb 2.855 oz Weight 215 lb Weight 215 lb Physical Exam 2 Const: COMMON NORMALS: no acute distress and patient oriented x3 GENERAL APPEARANCE: cooperative and comfortable ORIENTATION/CONSCIOUSNESS: Yes awake, Yes oriented to person, Yes oriented to place and Yes oriented to time Chest: COMMONS NORMALS: normal inspection of the chest and normal palpation of entire chest wall CHEST: Yes Symmetrical chest wall rise Resp: COMMON NORMALS: normal respiratory effort, No retractions, No use of accessory muscles and clear to auscultation bilaterally EFFORT & INSPECTION: Yes symmetric chest movement AUSCULTATION: clear to auscultation bilaterally Cardio: COMMON NORMALS: regular rate, regular rhythm, S1 normal heart sound present, S2 normal heart sound present, No gallops present (Cardio), No clicks present (Cardio), No murmurs present (Cardio) and No rub (Cardio) RATE: r egular rate RHYTHM: regular rhythm HEART SOUNDS: S1 normal heart sound present and S2 normal heart sound present PERIPHERAL PULSES: radial pulses present Extremity: COMMON NORMALS: no pedal edema Neuro: COMMON NORMALS: patient oriented x3 and moves all extremities S ENSORIUM/ORIENTATION: Yes oriented to person, Yes oriented to place and Yes oriented to time Data 04/14/24 08:25 04/14/24 08:25 Micro: Microbiology 04/13/24 07:45 Urine Culture - Final Urine,Clean Catch 04/13/24 09:10 Blood Culture - Preliminary Blood NEGATIVE TO DATE 04/13/24 09:18 Blood Culture - Preliminary Blood NEGATIVE TO DATE A&P Assessment and plan (1) NSTEMI (non-ST elevated myocardial infarction): Due to troponin elevation, possibility of syncope and abnormal stress test, coronary angiogram is necessary to further evaluate myocardial ischemia. Risk benefits of the procedure were discussed with the patient including risk of bleeding, stroke, contrast-induced nephropathy. Creatinine 1.6 today, around 1.3 at baseline. Will go ahead and start IV fluid for hydration, his LVEF is 60%. He is taking daily baby aspirin, does not need 325mg dose precath. (2) Hypotension: Hypotension has resolved with hydration. (3) Bradycardia: Bradycardia has resolved. Continue to hold beta-alea. (4) Abnormal stress test: Plan Bradycardia has resolved by withholding beta-blockers. He is not having chest pain. Given the elevated troponin yesterday and abnormal stress test will discuss further plan with his neurologist and the patient as well. Continue aspirin, atorvastatin. Attestations 2 Medical Necessity Statement*: Ischemic workup for elevated troponin and abnormal stress test Coding Level of Care Code Acute Code for [facility] Diagnoses NSTEMI (non-ST elevated myocardial infarction) I21.4 Hypotension I95.9 Bradycardia R00.1 Abnormal stress test R94.39
[2024-04-14] MEDS: pantoprazole 40 mg SDV IVP (11:32)
[2024-04-14] MEDS: meropenem 1,000 mg SDV 1000 MG IVP (11:32)
--- NOTE | 2024-04-14 11:42 | PC.SOCIAL ---
IMM Update pg 2 of IMM updated and reviewed w/ patient. Copy provided and copy dated, initialed and placed in chart.
[2024-04-14 12:26] LABS: Glucose Point of Care 260 mg/dL (70-110)
[2024-04-14] MEDS: heparin drip 25,000 UNIT/500 ML PREMIX 19 UNIT IV ×2 (12:47→14:29)
[2024-04-14] MEDS: insulin glargine 100 units/1 mL 30 UNIT SUBCUT (13:48)
--- NOTE | 2024-04-14 16:49 | PM.PN ---
Subjective Subjective: Patient is seen in his ICU room today. His surgery was canceled yesterday after he presented for preop and had low blood pressure which continued to decrease. Further workup demonstrated that the patient had air embolism primarily in the superior sagittal sinus visualized on head CT. He was admitted to the intensive care unit. Medications: Reviewed: Yes Vitals/I&O/Wt Last Vital Signs Temp 97.7 F 04/14/24 08:00 Pulse 61 04/14/24 08:00 Resp 14 04/14/24 08:00 BP 126/80 04/14/24 08:00 Pulse Ox 98 04/14/24 08:00 O2 Del Method Room Air 04/14/24 08:00 O2 Flow Rate 2 04/13/24 12:48 04/14/24 04/14/24 04/14/24 06:59 14:59 22:59 Intake Total 471.733 / 4351.333 58.267 / 58.267 Output Total 2175 / 3700 350 / 350 475 / 825 Balance -1703.267 / 651.333 -291.733 / -291.733 -475 / -766.733 Weight last 48 hrs Weight 228 lb 2.855 oz Weight 215 lb Weight 215 lb Physical Exam Narrative: Patient is alert and oriented in his bed. He has no significant complaints. Const: COMMON NORMALS: no acute distress, average body habitus, patient oriented x3 and alert GENERAL APPEARANCE: cooperative and comfortable ORIENTATION/CONSCIOUSNESS: Yes awake HENMT: COMMON NORMALS: normocephalic and atraumatic HEAD & SCALP: normocephalic and atraumatic Eye: GENERAL EYE: appearance normal, both eyes and all related structures Chest: COMMONS NORMALS: normal inspection of the chest Resp: COMMON NORMALS: normal respiratory effort EFFORT & INSPECTION: Yes able to speak in complete sentences and Yes symmetric chest movement Neuro: COMMON NORMALS: patient oriented x3 SENSORIUM/ORIENTATION: Yes alert Psych: COMMON NORMALS: mental status grossly normal APPEARANCE: Yes grossly normal ATTITUDE: Yes calm and Yes engaged ATTENTION/CONCENTRATION: Yes attention grossly intact Skin: COMMON NORMALS: no rashes or lesions noted GENERAL SKIN EXAM: no rashes or lesions noted Data 04/14/24 08:25 04/14/24 08:25 Micro: Microbiology 04/13/24 07:45 Urine Culture - Final Urine,Clean Catch 04/13/24 09:10 Blood Culture - Preliminary Blood NEGATIVE TO DATE 04/13/24 09:18 Blood Culture - Preliminary Blood NEGATIVE TO DATE A&P Assessment and plan (1) Severe carpal tunnel syndrome of both wrists: Patient presented to the hospital for right carpal tunnel release. Preoperatively, he was seen by Dr. Caba who is the patient's primary care provider as well as the person who was to evaluate him preoperatively for preoperative optimization. When he was seen at Dr. Caba's office, he was noted to have an elevated A1c, but as his primary care provider, she felt that he was not the improved from that, and he was quite painful secondary to his severe carpal tunnel syndrome. Decision was made to proceed with carpal tunnel release. On presentation, however, on the morning of surgery, the patient was somewhat confused upon arrival. He had a low blood pressure prior to any interventions. Blood pressure continued to diminish, and the patient was therefore sent to the intensive the emergency department where he was found to have an air embolism on CT scan. The patient therefore was admitted to the ICU. Since his admission to the ICU, he was found to have elevated troponins. A Persantine stress test was performed, and the patient failed this test . He is scheduled for cardiac catheterization and further workup. Attestations Medical Necessity Statement*: Per hospitalist team Coding Level of Care Code Acute Code for [facility] Diagnoses Severe carpal tunnel syndrome of both wrists G56.03
--- NOTE | 2024-04-14 17:07 | NMCV_ITS ---
NM wero perf SPECT r/s* [id number] Cole Troncoso Age: 73 Gender: M : 1950 Exam Date: 04/14/2024 06:38 Ordering Phys: Gaby Plummer Technologist: CHRIS Medina Exam Location: [facility] Indications: cp STRESS TEST Please see separate stress test report in [facility] for full findings IMAGE PROTOCOL Rest/Stress 1 Lexiscan Day Radiopharmaceutical Dose (mCi) Administration Site Administered by Rest: Tc-99m 10.9 IV Liane Escalante, [employer] EXEC[employer]IVE Sestamibi Stress:Tc-99m 33 IV Liane Hicksgle, [employer] EXEC[employer] Rest: 14-Apr-2024 60 Discovery 630 Stress: 14-Apr-2024 30 Discovery 630 0.4mg Lexiscan. Supine position only as patient was unable to lay prone. SPECT RESULTS Technical Quality: Good Raw Data Analysis: Normal Image Corrections: Summed Stress Score: 13 Summed Rest Score: 14 Summed Difference Score: 1 PERFUSION FINDINGS Large sized, partially reversible perfusion defect is seen in the inferior and inferolateral michlele. This is consistent with large area of prior infarct with medium sized area of marshall-infarct ischemia in these territories. FUNCTIONAL RESULTS (calculated via Gated SPECT) Stress Image LV EF (%): 50 Stress EDV (mL):104 TID: 1.57 Stress ESV (mL):52 FUNCTIONAL FINDINGS: There is normal left ventricular systolic function. TID ratio is elevated. IMPRESSIONS 1. Abnormal myocardial perfusion imaging with large area of prior infarct with medium sized area of marshall-infarct ischemia seen in inferior and inferolateral michelle. 2. LV systolic function is normal. 3.TID ratio is elevated. Bassam Tony MD (Electronically Signed) Final Date: 14 April 2024 10:22 S
[2024-04-14 17:41] LABS: Glucose Point of Care 249 mg/dL (70-110)
--- NOTE | 2024-04-14 17:55 | P.PN_ITS ---
Subjective 2 Subjective: Patient was seen this morning, he is alert oriented x 3, following all commands, no chest pain, no palpitations, no shortness of breath, no abdominal pain, no nausea, vomiting, no headache, blurry vision, no nausea, no vomiting, he had a stress test, we discussed his CT head findings, he understands, was at bedside, repeat head CT today Vitals/I&O/Wt Last Vital Signs Temp 97.7 F 04/14/24 08:00 Pulse 70 04/14/24 17:00 Resp 23 H 04/14/24 17:00 BP 129/62 04/14/24 17:00 Pulse Ox 99 04/14/24 17:00 O2 Del Method Room Air 04/14/24 17:00 O2 Flow Rate 2 04/13/24 12:48 04/14/24 04/14/24 04/14/24 06:59 14:59 22:59 Intake Total 471.733 / 4351.333 58.267 / 58.267 Output Total 2175 / 3700 800 / 800 1675 / 2475 Balance -1703.267 / 651.333 -741.733 / -741.733 -1675 / -2416.733 Weight last 48 hrs Weight 103.5 kg Weight 97.522 kg Weight 97.522 kg Physical Exam 2 Const: COMMON NORMALS: no acute distress and patient oriented x3 HENMT: COMMON NORMALS: normocephalic HEAD & SCALP: normocephalic Neck/C-Spine: COMMON NORMALS: no JVD Resp: COMMON NORMALS: normal respiratory effort, No retractions, No use of accessory muscles and clear to auscultation bilaterally AUSCULTATION: clear to auscultation bilaterally Cardio: COMMON NORMALS: no JVD, regular rate, regular rhythm, S1 normal heart sound present and S2 normal heart sound present RATE: regular rate RHYTHM: regular rhythm HEART SOUNDS: S1 normal heart sound present and S2 normal heart sound present GI: COMMON NORMALS: Normal to inspection, nondistended, normoactive bowel sounds present and non-tender Extremity: COMMON NORMALS: no calf tenderness and no pedal edema Neuro: COMMON NORMALS: patient oriented x3 Psych: COMMON NORMALS: mental status grossly normal Data 04/14/24 08:25 04/14/24 08:25 Micro: Microbiology 04/13/24 07:45 Urine Culture - Final Urine,Clean Catch 04/13/24 09:10 Blood Culture - Preliminary Blood NEGATIVE TO DATE 04/13/24 09:18 Blood Culture - Preliminary Blood NEGATIVE TO DATE A&P Assessment and plan (1) Air embolism: (2) Hypotension: (3) NSTEMI (non-ST elevated myocardial infarction): (4) DM type 2 (diabetes mellitus, type 2): (5) Bradycardia: Plan NSTEMI -Serial EKGs, serial reports, telemetry monitoring -Cardiac echo CONCLUSIONS Normal left ventricular size, systolic function and wall thickness, with no regional wall motion abnormalities. Left ventricular ejection fraction is estimated at 60%. Grade II/IV diastolic dysfunction, moderately elevated filling pressures. No significant chamber abnormalities. There is no pericardial effusion. Right atrial pressure is around 5 mm of mercury. -No chest pain complaints -Plan -Aspirin, statin, heparin drip -Cardiology consulted -Undergoing stress testing Acute kidney injury on CKD, creatinine 1.7 -Monitor UTI, with history of urostomy -No abdominal pain complaints -CT abdomen no acute findings -Urine culture, no growth, blood cultures so far negative stop IV antibiotics Hypotension, shock -Resolving -Potentially related to cerebral venous air embolism -Lactic acid within normal limits -Blood cultures -Urine culture -Monitor closely in ICU Bradycardia -Potentially related to beta-alea however patient reports he stopped taking the beta-alea about a week ago -No evidence of AV block -Continue telemetry monitoring Cerebral venous air embolism -CT head -Moderate amount of air noted in the superior sagittal sinus. There are a few additional foci of air in the cavernous sinuses -No headache, blurry vision, no nausea, no vomiting, no focal weakness -Spoke to neurology -Spoke to Dr. Youssef -Spoke to anesthesia -Etiology unclear -could be peripheral vein cannulation -Did have L4-L5 transforaminal RUY a few days ago -No trauma reported -Continue to conservatively manage -Repeat head CT today shows CT/CT head wo con* [id number] IMPRESSION: Complete interval resolution of the previously noted air embolism along the superior sagittal sinus and cavernous sinuses. No residual intracranial air. History of hemorrhagic brainstem CVA, monitor Attestations 2 Medical Necessity Statement*: Patient requires hospitalization for NSTEMI, undergoing stress testing, with positive stress test, likely will require coronary angiography tomorrow, n.p.o. midnight Diagnoses Air embolism T79.0XXA Hypotension I95.9 NSTEMI (non-ST elevated myocardial infarction) I21.4 DM type 2 (diabetes mellitus, type 2) E11.9 Bradycardia R00.1
[2024-04-14 18:04] LABS: Partial Thromboplastin Time 130.3 SECONDS (23.9-36.7)
--- NOTE | 2024-04-14 19:46 | PC.NURSE ---
Shift summary: Pt went to stress test first thing this am. Pt rested in bed in am, sat up in chair for a few hours then back to rest in bed. Head CT completed today. He ambulated part of the way back to ICU from CT without difficulties,. He wore his orthopaedic shoes. Sinus rhythm on monitor throughout shift. No c/o of chest pain, dizziness, or shortness of breath. His blood sugar was 26 at breakfast and lunch. He received another 30 units of Lantus this afternoon. At dinner it was 249. All three meals he received Humalog per his sliding scale. His urostomy has copious output, needing emptied frequently. 2475ml of pale clear urine.
[2024-04-14 20:45] LABS: Glucose Point of Care 295 mg/dL (70-110)
[2024-04-14] MEDS: atorvastatin 40 mg Tablet PO (21:27)
[2024-04-15] VITALS (20 sets, daily range): BP systolic 108–148; BP diastolic 58–89; PULSE 60–80; RESP 12–25; TEMP 36.3–36.4; O2SAT 93–100
[2024-04-15 01:46] LABS: Partial Thromboplastin Time 148.6 SECONDS (23.9-36.7)
[2024-04-15 04:06] LABS: Basophils # 0.1 10^3/uL (0.0-0.1); Basophils % 1.1 %; Eosinophils # 0.3 10^3/uL (0.0-0.8); Eosinophils % 4.9 %; Hematocrit 42.6 % (37-53); Lymphocytes # 1.9 10^3/uL (0.8-4.8); Lymphocytes % 29.5 %; Mean Corpuscular HGB Conc 31.9 g/dL (30-55); Mean Corpuscular Hemoglobin 30.3 pg (27-33); Mean Corpuscular Volume 94.9 fl (82-101); Mean Platelet Volume 11.4 fL (7.4-10.4); Monocytes # 0.7 10^3/uL (0.2-0.9); Monocytes % 11.4 %; Neutrophils # 3.43 10^3/uL (1.8-7.7); Neutrophils % 52.8 %; Nucleated Red Blood Cells % 0 %; Platelet Count 145 10^3/cmm (157-399); Red Blood Count 4.49 10^6/uL (3.85-5.65); Red Cell Distribution Width 13.2 % (12.1-15.1)
[2024-04-15 04:21] LABS: Alanine Aminotransferase 21 U/L (0-41); Albumin Level 3.3 g/dL (3.5-5.2); Alkaline Phosphatase 84 U/L (40-130); Anion Gap 15.5 (5-19); Aspartate Amino Transferase 13 U/L (0-40); Blood Urea Nitrogen 37 mg/dL (8-23); Calcium 8.2 mg/dL (8.5-10.5); Carbon Dioxide 18 mmol/L (22-29); Chloride 104 mmol/L (98-107); Creatinine Clr Calc Pharmacy 68.2097; Globulin 2.9 g/dL (1.3-4.6); Glucose 317 mg/dL (65-115); Magnesium 1.8 mg/dL (1.7-2.3); Osmolality Calculated 297 mOsm/kg (285-295); Phosphorus 2.5 mg/dL (2.5-4.5); Potassium 4.5 mmol/L (3.5-5.1); Sodium 133 mmol/L (136-145); Total Bilirubin 0.2 mg/dL (0.15-1.2); Total Protein 6.2 g/dL (6.6-8.7)
[2024-04-15 05:23] LABS: NT Pro B Type Natriuretic Pept 796 pg/mL (0-125)
[2024-04-15] MEDS: sodium chloride 0.9% 1,000 ML 100 ML IV ×2 (06:42→17:54)
[2024-04-15] MEDS: ropinirole 2 mg Tablet 8 MG PO ×2 (06:42→17:54)
[2024-04-15] MEDS: aspirin 81 mg EC Tablet PO (06:42)
[2024-04-15] MEDS: diphenhydrAMINE 50 mg Capsule PO (06:42)
[2024-04-15 07:53] LABS: Glucose Point of Care 231 mg/dL (70-110)
--- NOTE | 2024-04-15 08:00 | XACV_ITS ---
Exam Room: [facility] Ht: 183 cm Wt: 103 kg BSA: 2.32 m2 Gender: Male : 1950 Any Known Allergies: Penicillins Exam Priority: Routine Procedure(s): Procedure Description: Diagnostic procedure Procedure Description: PCI procedure Procedure Description: Drug Eluting Coronary Stent Procedure Description: PTCA Procedure Description: Miscellaneous Procedure Description: ACT Procedure Description: Coronary Angiography Diagnostic Cath Status: Urgent Diagnostic Findings * INDICATION: NSTEMI/Abnormal stress test. * Left Main has no significant disease. * Circumflex has mild luminal irregularities. 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 * Proximal Left Anterior Descending: Severe,calcified 90% stenosis, SHAGGY: 3 flow. LAD gives rise to a large sized diagonal artery that has 90-95% stenosis. * Coronary angiography shows right dominance. PCI Status: Urgent PCI Indication: NSTE - ACS Interventional Findings * Proximal Left Anterior Descendin% stenosis treated with a AB TREK 3.00X12 RX BALLOON, NOA GRECO EUPHORA RX 3.74V31VQ BALLOON, NOA Kulkarni CARMELO 3.0X15 JOSE ALFREDO, and NOA GRECO EUPHORA RX 3.75P31SH BALLOON. * Procedure detail: We enaged left main artery with XB 3.5 guide catheter. We crossed the severe stenosis with runthrough wire. Proximal LAD stenosis was predilated with 3.0x12mm semi compliant balloon. We then used a 3.0x12mm NC balloon to predilate the lesion. We then placed 3.0x15mm Resolute carmelo JOSE ALFREDO. This was post dilated with 3.2lu05mh NC balloon. Diagonal artery stenosis will undergo staged PCI. Patient left label rewinder in a stable condition. Conclusions 1. Severe proximal LAD stenosis s/p successful revascularization with 1 stent. Large sized diagonal artery has residual severe stenosis. We will stage PCI of that in 2-4 weeks. 2. Proximal Left Anterior Descending was treated with a Balloon, Balloon, Drug Eluting Stent, and Balloon. Recommendations * Dual antiplatelet therapy with aspirin and plavix for atleast 1 year. * High intensity statin therapy. * Staged PCI of diagonal artery in 4 weeks. Interventional RX Recommendation: PCI w/o planned CABG Diagnostic RX Recommendation: PCI w/o planned CABG Anticoagulation: Heparin Pressures Phase:Rest AO : 121 / 71 ( 93 ) @ 8:12:00 AM 100 / 57 ( 76 ) @ 8:20:00 AM 124 / 65 ( 89 ) @ 8:39:00 AM 146 / 84 ( 99 ) @ 8:53:00 AM Clinical Evaluation EBL: 5mL-10mL Procedural Details Procedure Consent Obtained. Pre-Procedure Time Out. Identified patient by full name and date of as verbalized by the patient/guarantor. Does the consent match the physician's order: Yes. Accurate & Complete Informed Consent: Yes. Inpatient/Outpatient History & Physical on Chart: Yes. If H&P is completed, is and addenduem needed: No. Visualize and Verify Site with Patient/Guarantor: N/A. Relevant Radiology Images available: Yes. The risks, benefits, and alternatives of sedation and/or procedure were discussed by physician. The patient agrees to continue. Procedure started. [facility] Clinical Fraility Score: 3: Managing Well. Cloth Mender Indications: ACS > 24 hours/NSTEMI/Abnormal stress test. Chest Pain Symptom Assessment: Typical Angina Symptoms. Cardiovascular Instability: No. Correct patient, site and procedure confirmed by cath team. PERRLA. Strong, equal hand blood bank order control clerk bilaterally. Lungs clear x 5 lobes. IV Site on Arrival: 20 gauge in the left wrist. IV Fluids: 0.9% NaCl at KVO. 100 mL infused prior to label rewinder. Pre Procedural Pulses: bilateral dorsalis pedis was 3+. Pre Procedural Pulses: bilateral posterior tibial was 1+. Pre Procedural Pulses: bilateral radial was 3+. Oxygen started at 2liters/min via nasal canula. left groin was prepped with chloroprep then draped in the usual sterile fashion. right radial was prepped with chloroprep then draped in the usual sterile fashion. Physician notified. Baseline sample Acquired. HR: 71 BPM. Patient's family unavailable. Equipment: 6F - Radial. Cardiac Cath Pack. ACIST Manifold Kit Model BT 2000. Heparinized Saline (2 units/mL), 1000 mL bag. Physician arrived. Physician scrubbed in. Immediate Pre-Procedure Time Out. Correct Patient: Yes; Correct Procedure: Yes; Correct Site: Yes; Correct Patient Position: Yes; Correct Supplies: Yes; Dried Flammable Prep: Yes; Blood Products Available: N/A;. Lidocaine 1% infiltrated to the right radial. Arterial access obtained. A 5 sudanese TIG catheter in over the exchange J wire. Multiple views taken of right coronary artery. Catheter redirected to the LCA. Catheter removed over the exchange J wire. A 5 sudanese JL3.5 catheter in over the exchange J wire. Catheter removed over the exchange J wire. A 5 sudanese JL4 catheter in over the exchange J wire. Multiple views taken of left coronary artery. ACT drawn. Results 370 seconds. Therapeutic limits - pre-heparin administration 90-150 seconds and monitoring heparin during a vascular procedure >250 seconds. Catheter removed over the exchange J wire. Will move to left femoral access for PCI. A TR Band was successful obtaining hemostatsis at the Right Radial artery insertion site. AP Pads placed on the patient. Lidocaine 1% infiltrated to the left groin. Arterial access obtained with micropuncture set using ultrasound guidance. Wire unable to thread. Wire and needle out. Manual pressure held by Dr. Tony. Arterial access obtained with micropuncture set using ultrasound guidance. 6 sudanese XB 3.5 guide catheter was inserted over the exchange J wire. Runthrough guidewire was advanced through the guide catheter to lesion in the prox LAD. Inflation number : 1 A AB TREK 3.00X12 RX BALLOON was prepped and advanced across the Prox LAD , then inflated to 12 SARA for 0:12 seconds. Balloon out. Results checked. Inflation number : 2 A NOA GRECO EUPHORA RX [id number] BALLOON was prepped and advanced across the Prox LAD , then inflated to 12 SARA for 0:18 seconds. Balloon out. Inflation Number : 3 A MDT R CARMELO 3.0X15 OJSE ALFREDO -Lot Number# [id number] was prepped and advanced across the Prox LAD. The stent was deployed at 12 SARA for 0:16 seconds. Exp. . Stent balloon out over wire. Inflation number : 4 A MDT NC EUPHORA RX [id number] BALLOON was prepped and advanced across the Prox LAD , then inflated to 14 SARA for 0:08 seconds. Balloon out. Results checked. Attempted to redirect the Runthrough guidewire to the Diagonal, unsuccessful. Wire out. ACT drawn. Results out of range HI. Will redraw. Guide catheter out. Dr. Tony scrubbed out. A Suture was successful obtaining hemostatsis at the Left Femoral artery insertion site. Sheath(s) sutured into position with 2-0 silk and sterile 4x4's and Op-site applied over the site. No oozing or signs and symptoms of hematoma noted. Arterial sheath flushed and connected to tranducer and pressure bag with heparinized saline. Post Procedure: Pulses reassessed and unchanged. PERRLA. Strong, equal hand blood bank order control clerk bilaterally. No VTE prophylaxis required. Medication's Wasted: Lidocaine 1% = 10 mL. Medication's Wasted: Nitro = 49.8 mg. Medication's Wasted: Other = Fentanyl 50 mcg. ACT drawn. Results 220 seconds. Therapeutic limits - pre-heparin administration 90-150 seconds and monitoring heparin during a vascular procedure >250 seconds. Total IV fluids: 80 mL. PCI Indication: NSTE. Post-op diagnosis: EQUIPMENT PROCESSER STORAGE of the RCA/PCI of the Proximal LAD with one JOSE ALFREDO. Complications: none. Estimated blood loss: 5mL-10mL. Responsiveness - Normal response to verbal stimuli; alert and oriented, PERRLA. Airway - Unaffected, no intervention required; spontaneous ventilation. Circulation: W/N/L, pulses unchanged. Nausea/Vomiting: No. Medication's Wasted: Heparin = 2500 units. Procedure completed. Patient transferred by bed to ICU. Vital chart was stopped. Access Site Site: Right Radial artery Sheath Size: 6 Fr Hemostasis Method: TR Band Hemostasis Success: Successful Site: Left Femoral artery Sheath Size: 6 Fr Hemostasis Method: Suture Hemostasis Success: Successful Procedure Medications Start: 8:05 AM Stop: 8:05 AM Medication: Versed Amount: 1 mg Route: I.V. Start: 8:05 AM Stop: 8:05 AM Medication: Fentanyl Amount: 50 mcg Route: I.V. Start: 8:08 AM Stop: 8:08 AM Medication: Versed Amount: 1 mg Route: I.V. Start: 8:09 AM Stop: 8:09 AM Medication: Nitrogylcerin Amount: 200 mcg Route: I.A. Start: 8:11 AM Stop: 8:11 AM Medication: Heparin Amount: 2500 units Route: I.V. Start: 8:54 AM Stop: 8:54 AM Medication: Heparin Amount: 2000 units Route: I.V. Start: 9:03 AM Stop: 9:03 AM Medication: Plavix Amount: 600 mg Route: P.O. Start: 9:11 AM Stop: 9:11 AM Medication: Heparin Amount: 2000 units Route: I.V. I, the attending physician, have reviewed and verified all procedure medications. Yes, all medications given per verbal order History/Risk Factors Hypertension: Yes Dyslipidemia: No Peripheral Arterial Disease (PAD): No Myocardial Infarction (MD): No Obesity: Yes Renal Disease: No Tobacco Use: Former Prior Interventions PCI: No CABG: No Valve Surgery: No Report Signatures Finalized by Bassam Tony MD on 04/23/2024 09:05 PM
--- NOTE | 2024-04-15 08:04 | W.PM.OPSUD ---
Surgery/Procedure H&P Update DATE OF PROCEDURE: April 15, 2024 DATE H&P PERFORMED: 04/13/24 H&P UPDATE INFORMATION: I have reviewed H&P completed within last 30 days, I have examined patient prior to procedure and No changes to prior documentation PREOP DIAGNOSIS: Troponin elevation/abnormal stress test PRIMARY INDICATION FOR PROCEDURE: Troponin elevation/abnormal stress test PLANNED PROCEDURE: Operation Date: 04/15/24 08:00 Proposed Procedures p Cardiac Catheterization(Right) - Bassam Tony M.D Possible percutaneous coronary intervention PATIENT REASSESSED PRIOR TO SEDATION, WITH NO CHANGE NOTED: Yes PHYSICAL EXAM: alert, oriented x 3, clear to auscultation bilaterally and regular rate & rhythm AIRWAY EVAL/ANESTHESIA PLAN: normal airway, ASA III, Local Anesthesia, Risks, benefits & alternatives of sedation and/or procedure discussed and Patient agrees to continue as planned ADDITIONAL INFORMATION: Moderate sedation
--- NOTE | 2024-04-15 09:10 | PM.PROC ---
Procedure Note: Date of procedure: 04/15/24 Pre-procedure diagnosis: NSTEMI/ Abnormal stress test Post-procedure diagnosis: other (Severe proximal LAD stenosis s/p PCI with 1 stent. 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 Severe diagonal artery stenosis) Procedure: Left heart cath with PCI: Severe proximal LAD stenosis s/p PCI with 1 stent. 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 Severe diagonal artery stenosis. Will have staged PCI in 2-4 weeks Dual antiplatelet agents with aspirin and plavix High intensity statin therapy Estimated blood loss (mL): 10 Complications: None Condition: stable Disposition: ICU Coding Level of Care Code Acute Code for Osiris Ansari
--- NOTE | 2024-04-15 09:12 | P.PN_ITS ---
Subjective 2 Subjective: Patient is chest pain-free. Had coronary angiogram that demonstrated severe proximal LAD stenosis status post successful revascularization with 1 stent. RCA MANAGEMENT DEPARTMENT CHAIR. Diagonal artery has significant disease that will be treated as a staged procedure. Vitals/I&O/Wt Last Vital Signs Temp 97.7 F 04/14/24 08:00 Pulse 68 04/15/24 06:00 Resp 25 H 04/15/24 06:00 BP 143/79 04/15/24 06:00 Pulse Ox 98 04/15/24 06:00 O2 Del Method Room Air 04/15/24 06:00 O2 Flow Rate 2 04/13/24 12:48 04/14/24 04/15/24 04/15/24 22:59 06:59 14:59 Intake Total 1018.983 / 1077.250 351.2 / 1428.450 Output Total 2125 / 2925 2550 / 5475 Balance -1106.017 / -1847.750 -2198.8 / -4046.550 Weight last 48 hrs Weight 228 lb 2.855 oz Weight 215 lb Physical Exam 2 Narrative: GENERAL: Patient is alert, awake and oriented x3. HEART: Regular S1 and S2. No murmur, rub or gallop. LUNGS: Diminished air entry bilaterally CENTRAL NERVOUS SYSTEM: Grossly nonfocal. EXTREMITIES: Lower extremities with out edema bilaterally. Data 04/15/24 03:29 04/15/24 03:29 Micro: Microbiology 04/13/24 07:45 Urine Culture - Final Urine,Clean Catch 04/13/24 09:10 Blood Culture - Preliminary Blood NEGATIVE TO DATE 04/13/24 09:18 Blood Culture - Preliminary Blood NEGATIVE TO DATE A&P Assessment and plan (1) NSTEMI (non-ST elevated myocardial infarction): (2) Hypotension: (3) Bradycardia: (4) Abnormal stress test: Plan Patient had critical stenosis of proximal LAD and had successful revascularization with 1 stent. RCA MANAGEMENT DEPARTMENT CHAIR. Diagonal artery has significant disease that will be treated as a staged procedure in 2 to 4 weeks. Continue aspirin. Plavix 75 mg daily. Was loaded with 600 mg in the Logistics Administrator. Thank you for involving us with care of this patient. We will continue to follow. Please call with questions. Attestations 2 Medical Necessity Statement*: Care expected to cross 2 midnights. Coding Level of Care Code Acute Code for [facility]g [facility]wd Diagnoses NSTEMI (non-ST elevated myocardial infarction) I21.4 Hypotension I95.9 Bradycardia R00.1 Abnormal stress test R94.39
[2024-04-15] MEDS: insulin lispro 100 unit/1 mL SUBCUT ×3 (09:51→17:56)
[2024-04-15] MEDS: pantoprazole 40 mg SDV IVP (09:52)
[2024-04-15] MEDS: gabapentin 300 mg Capsule PO ×3 (09:52→21:29)
[2024-04-15] MEDS: PARoxetine 20 mg Tablet 10 MG PO (09:52)
[2024-04-15 11:18] LABS: Glucose Point of Care 193 mg/dL (70-110)
--- NOTE | 2024-04-15 11:45 | PC.NURSE ---
patient transfered to [facility] via bed at 1110. Phil RN at patient's side. Both he and life insurance underwriter assessed patient's tin can laborer access and found no hematoma.
[2024-04-15 12:10] LABS: Partial Thromboplastin Time 215.2 SECONDS (23.9-36.7)
[2024-04-15 15:26] LABS: Partial Thromboplastin Time 64.6 SECONDS (23.9-36.7)
[2024-04-15] MEDS: insulin glargine 100 units/1 mL 20 UNIT SUBCUT ×2 (15:35→21:30)
[2024-04-15 16:05] LABS: Glucose Point of Care 314 mg/dL (70-110)
[2024-04-15 16:24] LABS: Partial Thromboplastin Time 44.4 SECONDS (23.9-36.7)
--- NOTE | 2024-04-15 17:14 | P.PN_ITS ---
Subjective 2 Subjective: Patient was seen this morning, after his cardiac catheterization procedure, status post stent to LAD, currently chest pain-free, no nausea, vomiting, no shortness of breath Vitals/I&O/Wt Last Vital Signs Temp 97.3 F L 04/15/24 12:00 Pulse 65 04/15/24 15:00 Resp 18 04/15/24 15:00 BP 134/84 04/15/24 15:00 Pulse Ox 100 04/15/24 15:00 O2 Del Method Nasal Cannula 04/15/24 12:00 O2 Flow Rate 2 04/15/24 12:00 04/15/24 04/15/24 04/15/24 06:59 14:59 22:59 Intake Total 351.2 / 1428.450 538.833 / 538.833 Output Total 2550 / 5475 1000 / 1000 Balance -2198.8 / -4046.550 -461.167 / -461.167 Weight last 48 hrs Weight 103.5 kg Physical Exam 2 Const: COMMON NORMALS: no acute distress and patient oriented x3 Resp: COMMON NORMALS: normal respiratory effort, No retractions, No use of accessory muscles and clear to auscultation bilaterally AUSCULTATION: clear to auscultation bilaterally Cardio: COMMON NORMALS: regular rate, regular rhythm, S1 normal heart sound present and S2 normal heart sound present RATE: regular rate RHYTHM: r egular rhythm HEART SOUNDS: S1 normal heart sound present and S2 normal heart sound present GI: COMMON NORMALS: Normal to inspection, nondistended, normoactive bowel sounds present and non-tender Extremity: COMMON NORMALS: no pedal edema Neuro: COMMON NORMALS: patient oriented x3 Psych: COMMON NORMALS: mental status grossly normal Data 04/15/24 03:29 04/15/24 03:29 A&P Assessment and plan (1) Air embolism: (2) Hypotension: (3) NSTEMI (non-ST elevated myocardial infarction): (4) DM type 2 (diabetes mellitus, type 2): (5) Bradycardia: Plan NSTEMI -Serial EKGs, serial reports, telemetry monitoring -Cardiac echo CONCLUSIONS Normal left ventricular size, systolic function and wall thickness, with no regional wall motion abnormalities. Left ventricular ejection fraction is estimated at 60%. Grade II/IV diastolic dysfunction, moderately elevated filling pressures. No significant chamber abnormalities. There is no pericardial effusion. Right atrial pressure is around 5 mm of mercury. 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, severe diagonal artery disease will have staged PCI in 2 to 4 weeks -Plan -Aspirin, statin, Plavix -Cardiology consulted Acute kidney injury on CKD, monitor -Monitor UTI, with history of urostomy -No abdominal pain complaints -CT abdomen no acute findings -Urine culture, no growth, blood cultures so far negative stop IV antibiotics Hypotension, shock, resolved -Resolving -Potentially related to cerebral venous air embolism -Lactic acid within normal limits -Blood cultures -Urine culture -Monitor closely in ICU Bradycardia -Potentially related to beta-alea however patient reports he stopped taking the beta-alea about a week ago -No evidence of AV block -Continue telemetry monitoring Cerebral venous air embolism -CT head -Moderate amount of air noted in the superior sagittal sinus. There are a few additional foci of air in the cavernous sinuses -No headache, blurry vision, no nausea, no vomiting, no focal weakness -Spoke to neurology -Spoke to Dr. Youssef -Spoke to anesthesia -Etiology unclear -could be peripheral vein cannulation -Did have L4-L5 transforaminal RUY a few days ago -No trauma reported -Continue to conservatively manage -Repeat head CT today shows CT/CT head wo con* [id number] IMPRESSION: Complete interval resolution of the previously noted air embolism along the superior sagittal sinus and cavernous sinuses. No residual intracranial air. History of hemorrhagic brainstem CVA, monitor Attestations 2 Medical Necessity Statement*: Patient requires hospitalization for NSTEMI, status post stenting, requires inpatient monitoring Diagnoses Air embolism T79.0XXA Hypotension I95.9 NSTEMI (non-ST elevated myocardial infarction) I21.4 DM type 2 (diabetes mellitus, type 2) E11.9 Bradycardia R00.1
--- NOTE | 2024-04-15 17:26 | PC.NURSE ---
sheath pulled at 1642. Pressure held until 1700. No hematoma noted. Patient tolerated procedure well.
[2024-04-15] MEDS: atorvastatin 40 mg Tablet PO (21:29)
[2024-04-16] VITALS (7 sets, daily range): BP systolic 127–164; BP diastolic 77–94; PULSE 78–94; RESP 12–22; TEMP 36.3–37; O2SAT 95–98
[2024-04-16 02:36] LABS: Glucose Point of Care 262 mg/dL (70-110)
[2024-04-16 02:47] LABS: Basophils % 0.5 %; Eosinophils # 0.4 10^3/uL (0.0-0.8); Eosinophils % 4.4 %; Hematocrit 41.3 % (37-53); Lymphocytes # 1.8 10^3/uL (0.8-4.8); Lymphocytes % 22.1 %; Mean Corpuscular HGB Conc 32.9 g/dL (30-55); Mean Corpuscular Hemoglobin 30.3 pg (27-33); Mean Platelet Volume 10.8 fL (7.4-10.4); Monocytes # 0.9 10^3/uL (0.2-0.9); Monocytes % 10.4 %; Neutrophils # 5.12 10^3/uL (1.8-7.7); Neutrophils % 62.2 %; Nucleated Red Blood Cells % 0 %; Platelet Count 141 10^3/cmm (157-399); Red Blood Count 4.49 10^6/uL (3.85-5.65); Red Cell Distribution Width 13.3 % (12.1-15.1); White Blood Count 8.23 10^3/uL (3.29-11.43)
[2024-04-16 03:12] LABS: Alanine Aminotransferase 18 U/L (0-41); Albumin Level 3.2 g/dL (3.5-5.2); Alkaline Phosphatase 91 U/L (40-130); Anion Gap 14.1 (5-19); Aspartate Amino Transferase 13 U/L (0-40); Blood Urea Nitrogen 25 mg/dL (8-23); Carbon Dioxide 19 mmol/L (22-29); Chloride 105 mmol/L (98-107); Creatinine Clr Calc Pharmacy 68.2097; Glucose 248 mg/dL (65-115); Magnesium 1.5 mg/dL (1.7-2.3); Osmolality Calculated 291 mOsm/kg (285-295); Phosphorus 2.3 mg/dL (2.5-4.5); Potassium 4.1 mmol/L (3.5-5.1); Sodium 134 mmol/L (136-145); Total Bilirubin 0.2 mg/dL (0.15-1.2); Total Protein 6.2 g/dL (6.6-8.7)
[2024-04-16 03:18] LABS: NT Pro B Type Natriuretic Pept 630 pg/mL (0-125)
[2024-04-16] MEDS: enoxaparin 40 mg/0.4 mL Syringe SUBCUT (05:36)
[2024-04-16 06:44] LABS: Glucose Point of Care 202 mg/dL (70-110)
[2024-04-16] MEDS: insulin lispro 100 unit/1 mL SUBCUT ×2 (08:15→12:07)
--- NOTE | 2024-04-16 08:27 | P.PN_ITS ---
Subjective 2 Subjective: Patient is doing well. No chest pain. Vitals/I&O/Wt Last Vital Signs Temp 97.6 F 04/16/24 04:00 Pulse 79 04/16/24 06:00 Resp 12 04/16/24 04:00 BP 153/85 04/16/24 04:00 Pulse Ox 95 04/16/24 04:00 O2 Del Method Room Air 04/16/24 04:00 O2 Flow Rate 2 04/15/24 18:27 04/15/24 04/16/24 04/16/24 22:59 06:59 14:59 Intake Total 3050 / 3588.833 1000 / 4588.833 Output Total 2100 / 3100 1800 / 4900 Balance 950 / 488.833 -800 / -311.167 Weight last 48 hrs Weight 229 lb Physical Exam 2 Narrative: GENERAL: Patient is alert, awake and oriented x3. HEART: Regular S1 and S2. No murmur, rub or gallop. LUNGS: Diminished air entry bilaterally CENTRAL NERVOUS SYSTEM: Grossly nonfocal. EXTREMITIES: Lower extremities with out edema bilaterally. Data 04/16/24 02:10 04/16/24 02:10 A&P Assessment and plan (1) NSTEMI (non-ST elevated myocardial infarction): (2) Hypotension: (3) Bradycardia: (4) Abnormal stress test: Plan Patient doing well. Renal function is staying stable. Continue dual antiplatelet therapy with aspirin Plavix. Staged PCI of diagonal artery in 4 weeks. Thank you for involving us with care of this patient. Please call with questions. Attestations 2 Medical Necessity Statement*: Care expected to cross 2 midnights. Coding Level of Care Code Acute Code for [facility] Diagnoses NSTEMI (non-ST elevated myocardial infarction) I21.4 Hypotension I95.9 Bradycardia R00.1 Abnormal stress test R94.39
[2024-04-16] MEDS: ropinirole 2 mg Tablet 8 MG PO (09:41)
[2024-04-16] MEDS: gabapentin 300 mg Capsule PO (09:41)
[2024-04-16] MEDS: losartan 50 mg Tablet 25 MG PO (09:41)
[2024-04-16] MEDS: phosphorus 250 mg Tablet PO (09:42)
[2024-04-16] MEDS: magnesium lactate 84 mg Tablet PO (09:42)
[2024-04-16] MEDS: PARoxetine 20 mg Tablet 10 MG PO (09:42)
[2024-04-16] MEDS: clopidogrel 75 mg Tablet PO (09:43)
[2024-04-16] MEDS: insulin glargine 100 units/1 mL 30 UNIT SUBCUT (09:43)
[2024-04-16] MEDS: aspirin 81 mg EC Tablet PO (09:43)
[2024-04-16] MEDS: pantoprazole 40 mg SDV IVP (09:44)
--- NOTE | 2024-04-16 10:41 | PM.DCS ---
Discharge Providers Date of Admission: 04/13/24 10:11 Date of Discharge: April 16, 2024 Attending Provider at Admission: Kenneth Vasquez MD Attending Provider at Discharge: Kenneth Vasquez MD Primary Care Provider: Ivett Still MD Diagnoses at Discharge Discharge Diagnosis (1) Air embolism: Status: Acute (2) Hypotension: Status: Acute (3) NSTEMI (non-ST elevated myocardial infarction): Status: Acute (4) DM type 2 (diabetes mellitus, type 2): Status: Acute (5) Bradycardia: Status: Acute Reason for Visit Reason for Visit: low bp, dizzy Hospital Course Hospital Course Cole Troncoso is a 73 year old male with a past medical history of brainstem stroke, with hemorrhage, 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 due to weakness, fatigue, low blood pressures, low heart rate. Currently patient is alert oriented x 3, following all commands, bradycardic heart rates in the 50s, blood pressures are soft, 90s over 60s, MAP is 65 he is on 2 L, temperature 98.2 is at bedside. Patient's tells me that about a week ago, Cole was feeling lightheaded, he was on metoprolol, and his primary care provider stopped the metoprolol and switched him to losartan. He also had a left L3 and L4 transforaminal RUY by Dr. Youssef, he does see that after the procedure he was in the postprocedural waiting room and his blood pressures were on the lower end, and every time the nurse will check the continue to slowly drop but he denied any lightheadedness or dizziness at that time. Does tell me over the last few days he just has been feeling well, intermittent dizziness, fatigue, malaise no headache, no blurry vision, no chest pain, no facial droop no slurring of words, no focal weakness, his family thought potentially could be the losartan making him feel sick and dizzy. Patient had come to preop early this morning, he tells me he was intermittently dizzy, feeling unwell, but no other significant symptomatology. When he was checked into preop, he was noted to have 88/52, pulse rate 67, sinus sent to the emergency room for evaluation. He denies any syncopal episodes. Emergency room he was given a 3 L bolus, found to have sinus bradycardia, troponin 106, EKG shows sinus bradycardia, his head CT shows cerebral venous air embolism, moderate amount of air noted in the superior sagittal sinus, with few additional foci of air in the cavernous sinus. Patient was admitted to [facility] for NSTEMI NSTEMI -Serial EKGs, serial reports, telemetry monitoring -Cardiac echo CONCLUSIONS Normal left ventricular size, systolic function and wall thickness, with no regional wall motion abnormalities. Left ventricular ejection fraction is estimated at 60%. Grade II/IV diastolic dysfunction, moderately elevated filling pressures. No significant chamber abnormalities. There is no pericardial effusion. Right atrial pressure is around 5 mm of mercury. -No chest pain complaints -Status post cardiac cath, found to have severe LAD stenosis status post PCI with 1 stent, CERTIFIED SCRUB TECH of RCA, severe diagonal artery disease will have staged PCI in 2 to 4 weeks -Will be discharged on aspirin, statin, Plavix, with a close follow-up with cardiology outpatient Hypotension, shock, resolved likely associated with cerebral venous air embolism, polypharmacy Bradycardia, potentially related to beta-alea, resolved Cerebral venous air embolism -CT head -Moderate amount of air noted in the superior sagittal sinus. There are a few additional foci of air in the cavernous sinuses -No headache, blurry vision, no nausea, no vomiting, no focal weakness -Spoke to neurology -Spoke to Dr. Youssef -Spoke to anesthesia -Etiology unclear -could be peripheral vein cannulation -Did have L4-L5 transforaminal RUY a few days ago -No trauma reported -Continue to conservatively manage -Repeat head CT today shows CT/CT head wo con* [id number] IMPRESSION: Complete interval resolution of the previously noted air embolism along the superior sagittal sinus and cavernous sinuses. No residual intracranial air. -Patient is asymptomatic on discharge Physical Exam Const: COMMON NORMALS: no acute distress and patient oriented x3 Resp: COMMON NORMALS: normal respiratory effort, No retractions, No use of accessory muscles and clear to auscultation bilaterally AUSCULTATION: clear to auscultation bilaterally Cardio: COMMON NORMALS: regular rate, regular rhythm, S1 normal heart sound present and S2 normal heart sound present RATE: regular rate RHYTHM: regular rhythm HEART SOUNDS: S1 normal heart sound present and S2 normal heart sound present GI: COMMON NORMALS: Normal to inspection, nondistended, normoactive bowel sounds present and non-tender Extremity: COMMON NORMALS: no pedal edema Neuro: COMMON NORMALS: patient oriented x3 Psych: COMMON NORMALS: mental status grossly normal Discharge Data Studies Completed and Pending Completed Studies During Hospitalization Category Date Time Status CT chest abdomen pelvis [[place] [id number] Cat Scan 04/13/24 14:41 Completed ] Routine CT head wo con* [id number] Routine Cat Scan 04/14/24 09:[address] head wo con* [id number] Stat Cat Scan 04/13/24 07:31 Completed Sestamibi Stress Test Request Routine Exams 04/13/24 17:07 Draft XR chest 1V portable [id number] Stat Exams 04/13/24 07:06 Completed NM wero perf SPECT r/s* [id number] Routine Nuc Med 04/14/24 17:07 Completed CV. echo complete* [id number] Stat Ultrasound 04/13/24 08:03 Completed Pending at discharge Category Date Time Status DIAGRAMMER request for service Routine Exams 04/15/24 08:00 Taken Blood Culture Stat Lab 04/13/24 09:10 Results Complete Blood Count w/Auto AM LABS Lab 04/17/24 04:00 Ordered Comprehensive Metabolic Panel AM LABS Lab 04/17/24 04:00 Ordered Magnesium AM LABS Lab 04/17/24 04:00 Ordered NT Pro B Type Natriuretic Pept QAM Lab 04/17/24 06:00 Ordered Phosphorus AM LABS Lab 04/17/24 04:00 Ordered Radiology Impressions Chest X-Ray 04/13/24 07:06 Impression: Atherosclerosis. Chest/Abdomen/Pelvis CT 04/13/24 14:41 IMPRESSION: 1. Status post cystectomy with RIGHT lower quadrant urinary diversion, ostomy and large parastomal hernia with herniated loops of small bowel and cecum. No obvious obstruction. 2. No hydronephrosis. 3. Prior cholecystectomy. 4. No pneumonia. No mediastinal or hilar adenopathy. 5. Mild cardiomegaly. Head CT 04/14/24 09:49 IMPRESSION: Complete interval resolution of the previously noted air embolism along the superior sagittal sinus and cavernous sinuses. No residual intracranial air. Laboratory Results WBC 8.23 10^3/uL (3.29-11.43) 04/16/24 02:10 RBC 4.49 10^6/uL (3.85-5.65) 04/16/24 02:10 Hgb 13.60 g/dL (11.27-16.99) 04/16/24 02:10 Hct 41.3 % (37-53) 04/16/24 02:10 MCV 92.0 fl (82-101) 04/16/24 02:10 MCH 30.3 pg (27-33) 04/16/24 02:10 MCHC 32.9 g/dL (30-55) 04/16/24 02:10 RDW 13.3 % (12.1-15.1) 04/16/24 02:10 Plt Count 141 10^3/cmm (157-399) L 04/16/24 02:10 MPV 10.8 fL (7.4-10.4) H 04/16/24 02:10 Neut % (Auto) 62.2 % 04/16/24 02:10 Lymph % (Auto) 22.1 % 04/16/24 02:10 [place] % (Auto) 10.4 % 04/16/24 02:10 Eos % (Auto) 4.4 % 04/16/24 02:10 Baso % (Auto) 0.5 % 04/16/24 02:10 Neut # (Auto) 5.12 10^3/uL (1.8-7.7) 04/16/24 02:10 Lymph # (Auto) 1.8 10^3/uL (0.8-4.8) 04/16/24 02:10 [place] # (Auto) 0.9 10^3/uL (0.2-0.9) 04/16/24 02:10 Eos # (Auto) 0.4 10^3/uL (0.0-0.8) 04/16/24 02:10 Baso # (Auto) 0.0 10^3/uL (0.0-0.1) 04/16/24 02:10 Nucleated RBC % (auto) 0 % 04/16/24 02:10 Nucleated RBCs # 0.0 /100WBC 04/16/24 02:10 ESR 5 mm/hr (0-10) 04/13/24 07:11 PT 14.90 SECONDS (12.1-14.9) 04/13/24 13:17 INR 1.09 (0.8-1.2) 04/13/24 13:17 APTT 44.4 SECONDS (23.9-36.7) H 04/15/24 16:04 D-Dimer 0.50 ug/mLFEU (0-0.59) 04/13/24 07:11 Sodium 134 mmol/L (136-145) L 04/16/24 02:10 Potassium 4.1 mmol/L (3.5-5.1) 04/16/24 02:10 Chloride 105 mmol/L (98-107) 04/16/24 02:10 Carbon Dioxide 19 mmol/L (22-29) L 04/16/24 02:10 Anion Gap 14.1 (5-19) 04/16/24 02:10 BUN 25 mg/dL (8-23) H 04/16/24 02:10 Creatinine 1.2 mg/dL (0.7-1.2) 04/16/24 02:10 GFR Calculation Not Reportable 04/16/24 02:10 Glucose 248 mg/dL (65-115) H 04/16/24 02:10 POC Glucose 202 mg/dL (70-110) H 04/16/24 06:30 Calculated Osmolality 291 mOsm/kg (285-295) 04/16/24 02:10 Lactic Acid 1.4 mmol/L (0.5-2.2) 04/13/24 07:11 Lactate 1.0 mmol/L (0.5-2.2) 04/14/24 08:25 Calcium 8.0 mg/dL (8.5-10.5) L 04/16/24 02:10 Phosphorus 2.3 mg/dL (2.5-4.5) L 04/16/24 02:10 Magnesium 1.5 mg/dL (1.7-2.3) L 04/16/24 02:10 Total Bilirubin 0.2 mg/dL (0.15-1.2) 04/16/24 02:10 AST 13 U/L (0-40) 04/16/24 02:10 ALT 18 U/L (0-41) 04/16/24 02:10 Alkaline Phosphatase 91 U/L (40-130) 04/16/24 02:10 Troponin T 5th Gen ng/L 78 ng/L (0-15) H 04/14/24 08:25 Troponin T Baseline 106 ng/L (0-15) H* 04/13/24 07:11 Troponin T 120 Minute 108.5 ng/L (0-15) H 04/13/24 09:11 Delta Troponin T 2.5 ABS# (0-10) 04/13/24 09:11 Troponin T Hi Sens 6Hr 71.23 ng/L (0-15) H 04/13/24 13:17 Troponin T Hi Sens 6Hr Delta -34.77 ng/L (0-12) L 04/13/24 13:17 C-Reactive Protein 3.3 mg/L (0.0-4.9) 04/14/24 08:25 NT-Pro-B Natriuret Pep 630 pg/mL (0-125) H 04/16/24 02:10 Total Protein 6.2 g/dL (6.6-8.7) L 04/16/24 02:10 Albumin 3.2 g/dL (3.5-5.2) L 04/16/24 02:10 Globulin 3.0 g/dL (1.3-4.6) 04/16/24 02:10 Procalcitonin 0.09 ng/mL (0-0.5) 04/13/24 07:11 TSH 1.76 uIU/mL (0.27-4.20) 04/14/24 08:25 Urine Color Yellow (Yellow) 04/13/24 07:45 Urine Appearance Clear (CLEAR) 04/13/24 07:45 Urine pH 7.5 (5-7) 04/13/24 07:45 Ur Specific [place] 1.012 (1.005-1.030) 04/13/24 07:45 Urine Protein 2+ (Negative) A 04/13/24 07:45 Urine Glucose (UA) Trace (Normal) H 04/13/24 07:45 Urine Ketones Negative (Negative) 04/13/24 07:45 Urine Blood 1+ (Negative) A 04/13/24 07:45 Urine Nitrate Negative (Negative) 04/13/24 07:45 Urine Bilirubin Negative (Negative) 04/13/24 07:45 Urine Urobilinogen 0.2 mg/dL (Negative) 04/13/24 07:45 Ur Leukocyte Esterase 2+ (Negative) A 04/13/24 07:45 Urine RBC 6-10 /hpf (0-2) 04/13/24 07:45 Urine WBC 21-50 /hpf (0-5) H 04/13/24 07:45 Ur Squamous Epith Cells 0-5 /hpf (0-5) 04/13/24 07:45 Amorphous Sediment Not Reportable 04/13/24 07:45 Urine Bacteria Trace /hpf (NONE) 04/13/24 07:45 Hyaline Casts 2.46 /lpf 04/13/24 07:45 Urine Opiates Screen Negative ng/mL (Negative) 04/13/24 07:45 Ur Barbiturates Screen Negative ng/mL (Negative) 04/13/24 07:45 Ur Phencyclidine Scrn Negative ng/mL (Negative) 04/13/24 07:45 Ur Amphetamines Screen Negative ng/mL (Negative) 04/13/24 07:45 U Benzodiazepines Scrn Negative ng/mL (Negative) 04/13/24 07:45 Urine Cocaine Screen Negative ng/mL (Negative) 04/13/24 07:45 U Marijuana (THC) Screen Negative ng/mL (Negative) 04/13/24 07:45 Ethyl Alcohol < 10 mg/dL (0-10) 04/13/24 07:11 Vitals Last Vital Signs Temp 97.3 F L 04/16/24 08:00 Pulse 83 04/16/24 08:00 Resp 22 H 04/16/24 08:00 BP 164/94 04/16/24 09:41 Pulse Ox 98 04/16/24 08:00 O2 Del Method Room Air 04/16/24 08:00 O2 Flow Rate 2 04/15/24 18:27 Discharge Plan Discharge Patient Disposition: Home Condition: Stable Prescriptions: New atorvastatin 40 mg Tablet 40 mg PO BEDTIME 30 Days Qty: 30 0RF clopidogrel 75 mg Tablet 75 mg PO DAILY 30 Days Qty: 30 0RF aspirin 81 mg Tablet,Delayed Release (Dr/Ec) 81 mg PO DAILY 30 Days Qty: 30 0RF magnesium L-lactate [Magtab] 84 mg Tablet Extended Release 84 mg PO DAILY 5 Days Qty: 5 0RF insulin aspart U-100 [Novolog FlexPen U-100 Insulin] 100 unit/mL (3 mL) insulin pen See Rx Instructions .ROUTE .COMPLEX MDD 30 Qty: 15 0RF Rx Instructions: Inject, subcut, 3 times daily, after meals, based on sliding scale provided nitroglycerin 0.4 mg tablet, sublingual 0.4 mg sublingual Q5M PRN (Reason: chest pain) 30 Days Qty: 30 0RF Rx Instructions: do not exceed 3 doses per episode clonidine HCl 0.1 mg tablet 0.1 mg PO DAILY PRN (Reason: hypertensive emergency) 30 Days Qty: 30 0RF Rx Instructions: sbp>180 or dbp>100 Continued fluticasone propionate [Flonase Allergy Relief] 50 mcg/actuation spray,suspension 1 spray intranasal DAILY PRN (Reason: nasal congestion) Qty: 16 0RF Rx Instructions: administer into each nostril gabapentin 300 mg capsule 300 mg PO TID ropinirole 4 mg tablet 8 mg PO BID Qty: 180 3RF (DME) Diabetic shoes See Rx Instructions .ROUTE .MEDSUPPLY Qty: 1 0RF Rx Instructions: with custom molded accommodative orthotics the shoe guys famotidine 40 mg tablet 40 mg PO BID Qty: 60 0RF (DME) blood-glucose meter Misc See Rx Instructions .MEDSUPPLY Qty: 1 0RF Rx Instructions: Use as directed for checking blood sugar (DME) Blood Glucose Test Strip See Rx Instructions .MEDSUPPLY Qty: 200 12RF Rx Instructions: Use as directed with glucometer to check blood sugar (DME) lancets Misc See Rx Instructions .MEDSUPPLY Qty: 200 12RF Rx Instructions: Use as directed to prick skin for blood sugar checks dapagliflozin propanediol [Farxiga] 10 mg tablet 10 mg PO DAILY Qty: 30 0RF albuterol sulfate 90 mcg/actuation HFA aerosol inhaler 2 inh INHALATION Q4H PRN (Reason: shortness of breath or wheezing) Qty: 18 0RF paroxetine HCl 10 mg tablet 10 mg PO DAILY Changed losartan 50 mg tablet 25 mg PO DAILY Qty: 30 0RF Levemir FlexTouch U100 Insulin 100 unit/mL (3 mL) insulin pen 30 unit SUBCUT BID Qty: 15 0RF Discontinued sulfamethoxazole-trimethoprim [Bactrim DS] 800-160 mg tablet 1 tab PO BID 5 Days Qty: 10 0RF ibuprofen [Advil] 200 mg Tablet 800 mg PO Q6H PRN (Reason: Pain) Discharge Orders: Discharge Order (Routine); Ordered 04/16/24 Ordered By: Kenneth Vasquez Referrals: Bassam Tony M.D [Physician] - 2 weeks (We have notified your physician's clinic of the need for a follow-up appointment to be scheduled. If you have not heard from them within the next 2 business days, please call them directly. ) Ivett Still MD [Primary Care Provider] - 1-3 days (We have notified your physician's clinic of the need for a follow-up appointment to be scheduled. If you have not heard from them within the next 2 business days, please call them directly. ) Benson Tesfaye MD [Physician] - 1-3 days (We have notified your physician's clinic of the need for a follow-up appointment to be scheduled. If you have not heard from them within the next 2 business days, please call them directly. ) Discharge Diet: Cardiac Discharge Activity: Resume usual activity Patient Instructions: Type 2 Diabetes, Nitroglycerin (By mouth), Clonidine (By mouth), Aspirin (By mouth), Atorvastatin (By mouth), Clopidogrel (By mouth) (Plavix), Insulin Aspart, Recombinant (By injection) (Novolog, Novolog..., Magnesium (By mouth), Heart Attack (DC), Syncope (DC), Opioid Safety, Post Angiogram Home Care Instructions, Post Heart Attack Stoplight Activity Restrictions/Additional Instructions: -Your hemoglobin A1c is 12.0, you need better control of your type 2 diabetes, referred to Dr. Tesfaye -Please take Levemir 30 units twice daily -Please monitor your blood sugars closely -Monitor your blood sugars 3 times daily as after meals -Please record your blood sugars, and a blood sugar log -For your NovoLog -Please inject blood sugar after meals based on sliding scale provided -Do not inject insulin if you do not eat as hypoglycemia kills -This is a NovoLog sliding scale -Insulin sliding ?fingerstick? Insulin ?141-180?0 units/sq 181-220?2 units/sq ?221-260?4 units/sq ?261-300 6 units/sq ?301-350?8 units/sq ?351-400 10 units/sq ?401-450?12 units/sq >450? 14units/sq -If your blood sugar is greater than 500 go to the emergency room -If your blood sugar is less than 60 or at anytime you feel lightheaded or dizzy or diaphoretic or have chest palpitations check your blood sugar, and eat a hard candy or drink orange juice and go immediately to the emergency room -Remember hypoglycemia kills, so if his blood sugar is less than 60 we have to increase it by taking in a sugary meal such as a hard candy or orange juice and go to the emergency room -If you have any questions please call us where here to help -If you have any chest pain please go to the emergency room -Please use nitroglycerin as needed for chest pain -Please take aspirin, Plavix as prescribed -Do not stop taking these medications as they are keeping your heart stent open -If you develop bloody black stools please go to the emergency room -If you do develop chest pain use nitroglycerin as needed for chest pain go to the emergency room -Please take losartan 25 mg daily -Check blood pressure twice daily -If your systolic blood pressure is consistently greater than 150 or your diastolic is consistently greater than 90 increase your losartan back to 50 mg daily -I have also sent in clonidine to be used as needed for hypertensive emergency, if your systolic blood pressures greater than 180 or your diastolic greater than 100 you can use the clonidine as needed -Please see primary care provider for blood pressure management -Full follow-up with cardiology -If you have any headache or blurry vision go to the emergency room Discharge Attestations Time Spent in Discharge Care*: greater than 30 min Status at Discharge: Cognitive status at discharge: cognitively intact, Behavioral status at discharge: cooperative, Quality Metrics Clinical Quality Measures [ No reported AMI, CVA or VTE this stay] Coding Level of Care Code 57630 Total time (in minutes) for Discharge: 45 Diagnoses Air embolism T79.0XXA Hypotension I95.9 NSTEMI (non-ST elevated myocardial infarction) I21.4 DM type 2 (diabetes mellitus, type 2) E11.9 Bradycardia R00.1
[2024-04-16 11:28] LABS: Glucose Point of Care 211 mg/dL (70-110)
--- NOTE | 2024-04-16 13:05 | PC.NURSE ---
discharge instructions given and explained.pt and spouse verb understanding of instructions.discharged via w/c to exit at this time.
== END 2024-04-16 13:05 | disposition home or self-care (01) | DRG 321 ==
LOC: ER 07:20 → ICU 10:11 → CSU 04-15 11:15
PROVIDERS: Internal Medicine; Admitting Provider Family Medicine; Emergency Provider Emergency Medicine; PCP Family Medicine; Visit Provider Family Medicine
PROC: 027034Z Dilation of Coronary Artery, One Artery with Drug-eluting Intraluminal Device, Percutaneous Approach (ICD-10-PCS; principal; 2024-04-15 08:00)
PROC: 027034Z Dilation of Coronary Artery, One Artery with Drug-eluting Intraluminal Device, Percutaneous Approach (ICD-10-PCS; 2024-04-15 08:00)
DX: I21.4 Non-ST elevation (NSTEMI) myocardial infarction (principal); T79.0XXA Air embolism (traumatic), initial encounter; N17.9 Acute kidney failure, unspecified; N39.0 Urinary tract infection, site not specified; X58.XXXA Exposure to other specified factors, initial encounter; I95.9 Hypotension, unspecified; E11.22 Type 2 diabetes mellitus with diabetic chronic kidney disease; E11.40 Type 2 diabetes mellitus with diabetic neuropathy, unspecified; N18.2 Chronic kidney disease, stage 2 (mild); Z79.4 Long term (current) use of insulin; Z79.84 Long term (current) use of oral hypoglycemic drugs; R00.1 Bradycardia, unspecified; T50.995A Adverse effect of other drugs, medicaments and biological substances, initial encounter; Y92.9 Unspecified place or not applicable; G47.30 Sleep apnea, unspecified; G56.03 Carpal tunnel syndrome, bilateral upper limbs; Z86.73 Personal history of transient ischemic attack (TIA), and cerebral infarction without residual deficits; Z85.51 Personal history of malignant neoplasm of bladder; Z87.891 Personal history of nicotine dependence
CPT/HCPCS: 36415; 36416; 64483; 70450; 71045; 71250; 74176; 77002; 78452; 80053; 80306; 80307; 81001; 82962; 83605; 83735; 83880; 84100; 84145; 84443; 84484; 85025; 85347; 85378; 85610; 85651; 85730; 86140; 87040; 87086; 93005; 93017; 93306; 93454; 94664; 96361; 96372; 96374; 96375; 96376; 99152; 99153; 99285; A9500; C1725; C1769; C1874; C1887; C1894; C9600; J0461; J0696; J1100; J1644; J1650; J1815; J2185; J2250; J2470; J2785; J3010; J3490; J7030; Q0163; Q9967

== ENCOUNTER → 2024-04-24 11:18 | Outpatient (BNVA) | payer MEDICARE, MEDICAID, SELFPAY | PROVIDERS: PCP Family Medicine; Visit Provider Anesthesiology Pain Medicine | DX: M48.062 Spinal stenosis, lumbar region with neurogenic claudication (principal); E11.40 Type 2 diabetes mellitus with diabetic neuropathy, unspecified; M51.16 Intervertebral disc disorders with radiculopathy, lumbar region | CPT/HCPCS: 99214 ==

== ENCOUNTER 2024-05-08 18:43 | Emergency (ER) | payer MEDICARE, MEDICAID, SELFPAY ==
[2024-05-08 18:47] VITALS: BP 230/110; PULSE 89; RESP 18; TEMP 36.3; O2SAT 97; BMI 29.8
--- NOTE | 2024-05-08 19:09 | ECG_ITS ---
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 Measurements Intervals [place] Rate: 86 P: 14 [place]: 161 QRS: -21 QRSD: 137 T: 27 QT: 410 QTc: 491 Interpretive Statements SINUS RHYTHM BORDERLINE LEFT AXIS DEVIATION [QRS AXIS < -20] RIGHT BUNDLE BRANCH BLOCK [120+ ms QRS DURATION, UPRIGHT V1, 40+ ms S IN I/aVL/V4/V5/V6] Compared to ECG 04/13/2024 12:54:16 Sinus bradycardia no longer present Electronically Signed On 05-08-2024 20:25:51 PACKAGING LINE ATTENDANT by Ha Cisneros M.D. [email or web address]
--- NOTE | 2024-05-08 19:14 | ED_ITS ---
HPI - Recheck/Abnormal Lab/Rx 2 General: Chief Complaint: Recheck/Abnormal Lab/Rx Stated Complaint: high b/p Time Seen by Provider: 05/08/24 19:08 History of Present Illness: This is 73-year-old male with history of hypertension who presents emergency room with hypertension. He has been having hypertension for the last several days. He checked today and it had become much higher. He did not take his as needed clonidine. He is had no chest pain. No shortness of breath. No altered mental status. No headaches. No nausea or vomiting. He denies any symptoms currently. Blood pressure at home was over 200 systolic and on presentation here he is 230/110. Again no symptoms. Related Data Home Medications ?Medication ?Instructions ?Recorded ?Confirmed gabapentin 300 mg capsule 300 mg PO TID 07/12/2305/01 paroxetine HCl 10 mg tablet 10 mg PO DAILY 08/08/23 Previous Rx's ?Medication ?Instructions ?Recorded albuterol sulfate 90 mcg/actuation 2 inh inhalation Q4 H PRN shortness 12/18/21 aerosol inhaler of breath or wheezing #18 gr ams fluticasone propionate 50 1 spray intranasal DAILY PRN nasal 03/01/23 mcg/actuation nasal congestion #16 grams spray,suspension (Flonase Allergy Relief) Diabetic shoes #1 ea 07/13/23 ropinirole 4 mg tablet 8 mg (2 x 4 mg) PO BID #180 tabs 01/04/24 blood sugar diagnostic (Blood #200 ea 04/05/24 Glucose Test strips) blood-glucose meter #1 ea 04/05/24 dapagliflozin propanediol 10 mg 10 mg PO DAILY #30 tab s 04/05/24 tablet ([facility]) famotidine 40 mg tablet 40 mg PO BID #60 tabs lancets #200 ea 04/05/24 aspirin 81 mg tablet,delayed 81 mg PO DAILY 30 days #3 0 tabs 04/16/24 release atorvastatin 40 mg tablet 40 mg PO BEDTIME 30 days #30 tabs 04/16/24 clonidine HCl 0.1 mg tablet 0.1 mg PO DAILY PRN hypert ensive 04/16/24 emergency 30 days #30 tabs clopidogrel 75 mg tablet 75 mg PO DAILY 30 days #30 t abs 04/16/24 insulin detemir U-100 100 unit/mL 30 unit (0.3 mL) SUB CUT BID #15 mL 04/16/24 (3 mL) subcutaneous pen (Levemir FlexTouch U-100 Insulin) nitroglycerin 0.4 mg sublingual 0.4 mg sublingual Q5M PRN chest 04/16/24 tablet pain 30 days #30 tabs cefdinir 300 mg capsule 300 mg PO BID #14 caps 05/01 insulin aspart U-100 100 unit/mL See Rx Instructions . Route 05/01/24 (3 mL) subcutaneous pen (Novolog .COMPLEX #15 mL FlexPen U-100 Insulin aspart) losartan 25 mg tablet 12.5 mg (1/2 x 25 mg) PO PANCHO LY #30 05/01/24 tabs Allergies Allergy/AdvReac Type Severity Reaction Status Date / Time Penicillins Allergy Unknown Verified 05/01/24 12:04 Review of Systems 2 Narrative: Constitutional symptoms: Negative except as documented in HPI. Skin symptoms: Negative except as documented in HPI. Eye symptoms: Negative except as documented in HPI. ENMT symptoms: Negative except as documented in HPI. Respiratory symptoms: Negative except as documented in HPI. Cardiovascular symptoms: Negative except as documented in HPI. Gastrointestinal symptoms: Negative except as documented in HPI. Genitourinary symptoms: Negative except as documented in HPI. Musculoskeletal symptoms: Negative except as documented in HPI. Neurologic symptoms: Negative except as documented in HPI. Psychiatric symptoms: Negative except as documented in HPI. Endocrine symptoms: Negative except as documented in HPI. 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 BG well controlled with scheduled insulin -consistent carb diet as tolerated Parastomal hernia PETER (obstructive sleep apnea) History of bladder cancer Hx of intestinal obstruction Surgical History History of appendectomy History of cholecystectomy History of shoulder surgery History of urostomy History of esophageal hernia repair Family History Mother Thyroid disease Hypertension Father Hypertension Social History Smoking and tobacco/nicotine status: never used tobacco/nicotine Quit status (tobacco/nicotine): has quit using Year quit tobacco: 2009 Former quit date comment: previously 4 ppd Alcohol intake: former Substance/Drug Use: never Lives independently: Yes Household members: other Details: brother Marital status: / Number of children: 1 Number of grandchildren: 2 service: No Current occupational status: retired and 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 Skin: Warm, dry. Head: Normocephalic, atraumatic. Neck: Supple, trachea midline. Eye: Extraocular movements are intact. Ears, nose, mouth and throat: mucosa moist. Cardiovascular: Regular, Normal peripheral perfusion. Respiratory: Lungs are clear to auscultation, respirations are non-labored, breath sounds are equal, Symmetrical chest wall expansion. Gastrointestinal: Soft, Nontender, Non distended Musculoskeletal: Normal ROM, no deformity. Neurological: Alert and oriented, No focal neurological deficit observed. Psychiatric: Cooperative, appropriate mood & affect. Course 2 Vital Signs: Vital signs: Vital Signs Temperature 97.4 F L 05/08/24 18:47 Pulse Rate 77 05/08/24 20:53 Respiratory Rate 16 05/08/24 20:53 Blood Pressure 155/96 05/08/24 20:53 Pulse Oximetry 94 05/08/24 20:53 Oxygen Delivery Me thod Room Air 05/08/24 20:53 MDM - Recheck/Abnormal Lab/Rx Medical Decision Making Medical decision making: Differential diagnosis including but not limited to and based on the above HPI, review of systems and physical exam: Patient presents with hypertension: Essential hypertension. Stroke. acute coronary syndrome. kidney failure. congestive heart failure. anxiety Orders placed to evaluate differential diagnosis based on the above differential, HPI and physical exam EKG: Time 1913. Rate 86. Normal sinus rhythm, No ST-T changes, no ectopy, right bundle branch block, This was reviewed and interpreted by myself the ER physician at 1920. Lab Review: Laboratory results were reviewed and interpreted by myself the emergency room physician. No leukocytosis. No anemia. Renal function is at his baseline he has stage II chronic kidney disease. Serial troponins are at his baseline. I reviewed the patient's medical record. Reexamination: Patient has remained stable. No increased work of breathing. No altered mental status. No headache. No chest pain. Blood pressure is dropped significantly spontaneously. Assessment and plan: Hypertension - Discharged home - Discussed plan with patient. Answered any questions. - Evaluation and treatment of this problem were appropriate in the emergency setting. Lab Data 05/08/24 19:46 05/08/24 19:46 Laboratory Results WBC 6.22 10^3/uL (3.29-11.43) 05/08/24 19:46 RBC 4.98 10^6/uL (3.85-5.65) 05/08/24 19:46 Hgb 15.00 g/dL (11.27-16.99) 05/08/24 19:46 Hct 45.4 % (37-53) 05/08/24 19:46 MCV 91.2 fl (82-101) 05/08/24 19:46 MCH 30.1 pg (27-33) 05/08/24 19:46 MCHC 33.0 g/dL (30-55) 05/08/24 19:46 RDW 13.4 % (12.1-15.1) 05/08/24 19:46 Plt Count 171 10^3/cmm (157-399) 05/08/24 19:46 MPV 10.1 fL (7.4-10.4) 05/08/24 19:46 Neut % (Auto) 57.9 % 05/08/24 19:46 Lymph % (Auto) 23.5 % 05/08/24 19:46 [place] % (Auto) 10.3 % 05/08/24 19:46 Eos % (Auto) 6.8 % 05/08/24 19:46 Baso % (Auto) 1.0 % 05/08/24 19:46 Neut # (Auto) 3.61 10^3/uL (1.8-7.7) 05/08/24 19:46 Lymph # (Auto) 1.5 10^3/uL (0.8-4.8) 05/08/24 19:46 [place] # (Auto) 0.6 10^3/uL (0.2-0.9) 05/08/24 19:46 Eos # (Auto) 0.4 10^3/uL (0.0-0.8) 05/08/24 19:46 Baso # (Auto) 0.1 10^3/uL (0.0-0.1) 05/08/24 19:46 Nucleated RBC % (auto) 0 % 05/08/24 19:46 Nucleated RBCs # 0.0 /100WBC 05/08/24 19:46 Sodium 139 mmol/L (136-145) 05/08/24 19:46 Potassium 4.4 mmol/L (3.5-5.1) 05/08/24 19:46 Chloride 98 mmol/L (98-107) 05/08/24 19:46 Carbon Dioxide 30 mmol/L (22-29) H 05/08/24 19:46 Anion Gap 15.4 (5-19) 05/08/24 19:46 BUN 31 mg/dL (8-23) H 05/08/24 19:46 Creatinine 1.2 mg/dL (0.7-1.2) 05/08/24 19:46 GFR Calculation Not Reportable 05/08/24 19:46 Glucose 246 mg/dL (65-115) H 05/08/24 19:46 Calculated Osmolality 303 mOsm/kg (285-295) H 05/08/24 19:46 Calcium 9.8 mg/dL (8.5-10.5) 05/08/24 19:46 Total Bilirubin 0.4 mg/dL (0.15-1.2) 05/08/24 19:46 AST 18 U/L (0-40) 05/08/24 19:46 ALT 25 U/L (0-41) 05/08/24 19:46 Alkaline Phosphatase 135 U/L (40-130) H 05/08/24 19:46 Troponin T Baseline 34 ng/L (0-15) H 05/08/24 19:46 NT-Pro-B Natriuret Pep 377 pg/mL (0-125) H 05/08/24 19:46 Total Protein 7.8 g/dL (6.6-8.7) 05/08/24 19:46 Albumin 4.4 g/dL (3.5-5.2) 05/08/24 19:46 Globulin 3.4 g/dL (1.3-4.6) 05/08/24 19:46 No radiology studies performed this visit Discharge Plan Discharge Patient Disposition: Home Clinical Impression: Accelerated hypertension Condition: Stable Prescriptions: No Action fluticasone propionate [Flonase Allergy Relief] 50 mcg/actuation spray,suspension 1 spray intranasal DAILY PRN (Reason: nasal congestion) Qty: 16 0RF Rx Instructions: administer into each nostril gabapentin 300 mg capsule 300 mg PO TID ropinirole 4 mg tablet 8 mg PO BID Qty: 180 3RF insulin aspart U-100 [Novolog FlexPen U-100 Insulin] 100 unit/mL (3 mL) insulin pen See Rx Instructions .ROUTE .COMPLEX MDD 30 Qty: 15 0RF Rx Instructions: Inject, subcut, 3 times daily, after meals, based on sliding scale provided losartan 25 mg tablet 12.5 mg PO DAILY Qty: 30 0RF cefdinir 300 mg capsule 300 mg PO BID Qty: 14 0RF (DME) Diabetic shoes See Rx Instructions .ROUTE .MEDSUPPLY Qty: 1 0RF Rx Instructions: with custom molded accommodative orthotics the [employer] famotidine 40 mg tablet 40 mg PO BID Qty: 60 0RF (DME) blood-glucose meter Misc See Rx Instructions .MEDSUPPLY Qty: 1 0RF Rx Instructions: Use as directed for checking blood sugar (DME) Blood Glucose Test Strip See Rx Instructions .MEDSUPPLY Qty: 200 12RF Rx Instructions: Use as directed with glucometer to check blood sugar (DME) lancets Misc See Rx Instructions .MEDSUPPLY Qty: 200 12RF Rx Instructions: Use as directed to prick skin for blood sugar checks dapagliflozin propanediol [Farxiga] 10 mg tablet 10 mg PO DAILY Qty: 30 0RF albuterol sulfate 90 mcg/actuation HFA aerosol inhaler 2 inh INHALATION Q4H PRN (Reason: shortness of breath or wheezing) Qty: 18 0RF paroxetine HCl 10 mg tablet 10 mg PO DAILY atorvastatin 40 mg Tablet 40 mg PO BEDTIME 30 Days Qty: 30 0RF clopidogrel 75 mg Tablet 75 mg PO DAILY 30 Days Qty: 30 0RF aspirin 81 mg Tablet,Delayed Release (Dr/Ec) 81 mg PO DAILY 30 Days Qty: 30 0RF Levemir FlexTouch U100 Insulin 100 unit/mL (3 mL) insulin pen 30 unit SUBCUT BID Qty: 15 0RF nitroglycerin 0.4 mg tablet, sublingual 0.4 mg sublingual Q5M PRN (Reason: chest pain) 30 Days Qty: 30 0RF Rx Instructions: do not exceed 3 doses per episode clonidine HCl 0.1 mg tablet 0.1 mg PO DAILY PRN (Reason: hypertensive emergency) 30 Days Qty: 30 0RF Rx Instructions: sbp>180 or dbp>100 Discharge Orders: Discharge ED (Routine); Ordered 05/08/24 Ordered By: Susie Dalton Referrals: Ivett Still MD [Primary Care Provider] - Discharge Diet: Usual diet Discharge Activity: Increase activity as tolerated Patient Instructions: Hypertension (ED), Opioid Safety, Pain Management Activity Restrictions/Additional Instructions: Thank you for choosing [facility] for your healthcare needs today. Please realize this is an emergency room and that we are providing you with a medical screening exam and this may not be complete and all inclusive of all the testing and or work up that you may need to determine your ailment or severity of your illness. You have been screened and evaluated and felt safe for discharge. Health conditions do change or evolve sometimes and as such it is important that you follow up with your Primary Doctor to be re checked, 3-5 days is a general good time frame for follow up. You are always welcome to return to the ED for re assessment if your symptoms are worsening or you have new concerns Print Language: Lithuanian Coding Level of Care Code ED Fire Investigation Lieutenant for Osiris Ansari
[2024-05-08 19:58] LABS: Basophils # 0.1 10^3/uL (0.0-0.1); Eosinophils # 0.4 10^3/uL (0.0-0.8); Eosinophils % 6.8 %; Hematocrit 45.4 % (37-53); Lymphocytes # 1.5 10^3/uL (0.8-4.8); Lymphocytes % 23.5 %; Mean Corpuscular Hemoglobin 30.1 pg (27-33); Mean Corpuscular Volume 91.2 fl (82-101); Mean Platelet Volume 10.1 fL (7.4-10.4); Monocytes # 0.6 10^3/uL (0.2-0.9); Monocytes % 10.3 %; Neutrophils # 3.61 10^3/uL (1.8-7.7); Neutrophils % 57.9 %; Nucleated Red Blood Cells % 0 %; Platelet Count 171 10^3/cmm (157-399); Red Blood Count 4.98 10^6/uL (3.85-5.65); Red Cell Distribution Width 13.4 % (12.1-15.1); White Blood Count 6.22 10^3/uL (3.29-11.43)
[2024-05-08 20:16] LABS: Troponin(5th) Baseline 34 ng/L (0-15)
[2024-05-08 20:40] LABS: Alanine Aminotransferase 25 U/L (0-41); Albumin Level 4.4 g/dL (3.5-5.2); Alkaline Phosphatase 135 U/L (40-130); Anion Gap 15.4 (5-19); Aspartate Amino Transferase 18 U/L (0-40); Blood Urea Nitrogen 31 mg/dL (8-23); Calcium 9.8 mg/dL (8.5-10.5); Carbon Dioxide 30 mmol/L (22-29); Chloride 98 mmol/L (98-107); Creatinine Clr Calc Pharmacy 67.0589; Globulin 3.4 g/dL (1.3-4.6); Glucose 246 mg/dL (65-115); NT Pro B Type Natriuretic Pept 377 pg/mL (0-125); Osmolality Calculated 303 mOsm/kg (285-295); Potassium 4.4 mmol/L (3.5-5.1); Sodium 139 mmol/L (136-145); Total Bilirubin 0.4 mg/dL (0.15-1.2); Total Protein 7.8 g/dL (6.6-8.7)
[2024-05-08 20:53] VITALS: BP 155/96; PULSE 77; RESP 16; O2SAT 94
[2024-05-08 21:43] LABS: Troponin 5 2HR 34.65 ng/L (0-15); Troponin 5 2HR Delta 0.65 ABS# (0-10)
[2024-05-08 22:10] VITALS: BP 145/83; PULSE 70; RESP 16; O2SAT 95
== END 2024-05-08 22:08 | disposition home or self-care (01) ==
PROVIDERS: Emergency Provider Emergency Medicine; PCP Family Medicine
DX: E10.22 Type 1 diabetes mellitus with diabetic chronic kidney disease (principal); I12.9 Hypertensive chronic kidney disease with stage 1 through stage 4 chronic kidney disease, or unspecified chronic kidney disease; N18.9 Chronic kidney disease, unspecified; Z79.4 Long term (current) use of insulin; Z79.82 Long term (current) use of aspirin; Z79.02 Long term (current) use of antithrombotics/antiplatelets
CPT/HCPCS: 36415; 80053; 83880; 84484; 85025; 93005; 99284

== ENCOUNTER 2024-05-26 10:51 | Emergency (ER) | payer MEDICARE, MEDICAID, SELFPAY ==
[2024-05-26 11:15] VITALS: BP 161/79; PULSE 91; TEMP 36.7; O2SAT 97; BMI 28.5
--- NOTE | 2024-05-26 11:30 | ED_ITS ---
HPI - Skin/Abscess/Foreign Bdy 2 General: Chief complaint: Wound/Laceration Stated complaint: blister on bottom of right foot Time Seen by Provider: 05/26/24 11:16 Source: patient and family Mode of arrival: wheelchair Limitations: no limitations History of Present Illness: Patient is a nice 73-year-old male presents to ED today with a complaint of a skin lesion involving the plantar aspect of his right foot that he reportedly only noticed yesterday. No history of a plantar puncture wound. Patient is an uncontrolled diabetic stating his sugars normally run in the 300s. He does have a longstanding history of Charcot arthropathy involving the right foot. He states he used to see Dr. Day for this but has not in several years. He has no systemic complaints including fever. He arrives here with stable vital signs. MD complaint: abscess/boil Onset (ago): day(s) (yesterday) Location: R foot Relieving factors: none Exacerbating factors: none Context: none Associated symptoms: Reports no associated symptoms; Deny chills or fever(s) Treatments prior to arrival: none Related Data Previous Rx's ?Medication ?Instructions ?Recorded insulin aspart U-100 100 unit/mL See Rx Instructions . Route 05/01/24 (3 mL) subcutaneous pen (Novolog .COMPLEX #15 mL FlexPen U-100 Insulin aspart) albuterol sulfate 90 mcg/actuation 2 inh inhalation Q4 H PRN shortness 05/16/24 aerosol inhaler of breath or wheezing #18 gr ams famotidine 40 mg tablet 40 mg PO BID #60 tabs losartan 25 mg tablet 12.5 mg (1/2 x 25 mg) PO PANCHO LY #45 05/16/24 tabs ropinirole 4 mg tablet 8 mg (2 x 4 mg) PO BID #180 tabs 05/16/24 aspirin 81 mg tablet,delayed 81 mg PO DAILY 30 days #3 0 tabs 05/22/24 release clopidogrel 75 mg tablet 75 mg PO DAILY 30 days #30 t abs 05/22/24 dapagliflozin propanediol 10 mg 10 mg PO DAILY #30 tab s 05/22/24 tablet (Farxiga) gabapentin 300 mg capsule 300 mg PO TID #90 caps 05/22 insulin detemir U-100 100 unit/mL 30 unit (0.3 mL) SUB CUT BID #15 mL 05/22/24 (3 mL) subcutaneous pen (Levemir FlexTouch U-100 Insulin) doxycycline monohydrate 100 mg 100 mg PO Q12H 7 days # 14 caps 05/26/24 capsule Allergies Allergy/AdvReac Type Severity Reaction Status Date / Time Penicillins Allergy Unknown Verified 05/22/24 08:53 Review of Systems 2 Const: Denies: fever(s), chills or body aches Musc: Reports: extremity pain (R foot), extremity swelling (R foot ) and other (R foot redness) Neuro: Reports: other (chronic LE neuropathy) PFSH ED 2 PFSH: Medical History 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 BG well controlled with scheduled insulin -consistent carb diet as tolerated Parastomal hernia PETER (obstructive sleep apnea) History of bladder cancer Hx of intestinal obstruction Surgical History History of appendectomy History of cholecystectomy History of shoulder surgery History of urostomy History of esophageal hernia repair Family History Mother Thyroid disease Hypertension Father Hypertension Social History Smoking and tobacco/nicotine status: never used tobacco/nicotine Quit status (tobacco/nicotine): has quit using Year quit tobacco: 2009 Former quit date comment: previously 4 ppd Alcohol intake: former Substance/Drug Use: never Lives independently: Yes Household members: other Details: brother Marital status: / Number of children: 1 Number of grandchildren: 2 service: No 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 occupational status: 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 and 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 gender identity: Male Special jose carlos needs: No Agree to transfusion: Yes Physical Exam 2 Const: COMMON NORMALS: no acute distress, average body habitus, patient oriented x3, no limitations, healthy appearing, alert and well nourished G ENERAL APPEARANCE: cooperative Resp: COMMON NORMALS: normal respiratory effort and clear to auscultation bilaterally AUSCULTATION: clear to auscultation bilaterally Cardio: COMMON NORMALS: regular rate and regular rhythm RATE: regular rate RHYTHM: regular rhythm Extremity: COMMON NORMALS: capillary refill normal GENERAL: Yes normal exam except as noted RIGHT LOWER EXTREMITY: Yes foot & digits (no lymphangitic streaking) Right foot and digits: Yes inspection (chronic Charcot deformity; erythema/warmth medial R foot), Yes ROM (normal), Yes neurovascular exam (chronic neuropathy; DP/PT pulses normal) and Yes other (edema/probable abscess mid plantar surface R foot; no drainage) Neuro: COMMON NORMALS: patient oriented x3 SENSORIUM/ORIENTATION: Yes alert Course 2 Consultations: Consultation #1: Dr. Day-recommend boot, non-weight bearing with crutches, oral abx, and he will see at 0730 on Wednesday Vital Signs: Vital signs: Vital Signs Temperature 98.0 F 05/26/24 11:15 Pulse Rate 91 05/26/24 11:15 Blood Pressure 161/79 05/26/24 11:15 Pulse Oximetry 97 05/26/24 11:15 Oxygen Delivery Me thod Room Air 05/26/24 11:15 MDM - Skin/Abscess/Foreign Bdy Medicial Decision Making Patient is a nice 73-year-old male here for concerns of plantar right foot infection. He has a chronic Charcot arthropathy deformity to the foot. He is an uncontrolled diabetic. Images of patient's plantar foot infection were reviewed by Dr. Day as well as his laboratory values and x-ray. He has no systemic complaints. His white count is normal as well as his lactate. Vitals are normal. CRP is mildly elevated at 24.0. XR showing probable osteomyelitis. Dr. Day would like to see him at 0730 on Wednesday. Requested oral antibiotics of doxycycline or Bactrim. He did want the patient to be non- weightbearing with the use of crutches and to begin wearing his boot which he has at home. Return precautions discussed. Medical Records I reviewed the patient's medical records. Lab Data I reviewed the patient's lab results. 05/26/24 12:02 05/26/24 12:02 Radiology Impressions Foot X-Ray 05/26/24 11:39 IMPRESSION: Presumed plantar soft tissue infection with extension into the cuboid, osteomyelitis, as above. Laboratory Results WBC 8.20 10^3/uL (3.29-11.43) 05/26/24 12:02 RBC 4.64 10^6/uL (3.85-5.65) 05/26/24 12:02 Hgb 14.10 g/dL (11.27-16.99) 05/26/24 12:02 Hct 42.5 % (37-53) 05/26/24 12:02 MCV 91.6 fl (82-101) 05/26/24 12:02 MCH 30.4 pg (27-33) 05/26/24 12:02 MCHC 33.2 g/dL (30-55) 05/26/24 12:02 RDW 12.8 % (12.1-15.1) 05/26/24 12:02 Plt Count 148 10^3/cmm (157-399) L 05/26/24 12:02 MPV 10.3 fL (7.4-10.4) 05/26/24 12:02 Neut % (Auto) 62.7 % 05/26/24 12:02 Lymph % (Auto) 21.5 % 05/26/24 12:02 Nolan % (Auto) 10.0 % 05/26/24 12:02 Eos % (Auto) 4.5 % 05/26/24 12:02 Baso % (Auto) 1.1 % 05/26/24 12:02 Neut # (Auto) 5.14 10^3/uL (1.8-7.7) 05/26/24 12:02 Lymph # (Auto) 1.8 10^3/uL (0.8-4.8) 05/26/24 12:02 Nolan # (Auto) 0.8 10^3/uL (0.2-0.9) 05/26/24 12:02 Eos # (Auto) 0.4 10^3/uL (0.0-0.8) 05/26/24 12:02 Baso # (Auto) 0.1 10^3/uL (0.0-0.1) 05/26/24 12:02 Nucleated RBC % (auto) 0 % 05/26/24 12:02 Nucleated RBCs # 0.0 /100WBC 05/26/24 12:02 Sodium 134 mmol/L (136-145) L 05/26/24 12:02 Potassium 4.8 mmol/L (3.5-5.1) 05/26/24 12:02 Chloride 99 mmol/L (98-107) 05/26/24 12:02 Carbon Dioxide 24 mmol/L (22-29) 05/26/24 12:02 Anion Gap 15.8 (5-19) 05/26/24 12:02 BUN 34 mg/dL (8-23) H 05/26/24 12:02 Creatinine 1.3 mg/dL (0.7-1.2) H 05/26/24 12:02 GFR Calculation Not Reportable 05/26/24 12:02 Glucose 333 mg/dL (65-115) H 05/26/24 12:02 Calculated Osmolality 299 mOsm/kg (285-295) H 05/26/24 12:02 Lactic Acid 1.2 mmol/L (0.5-2.2) 05/26/24 12:02 Calcium 9.4 mg/dL (8.5-10.5) 05/26/24 12:02 Total Bilirubin 0.5 mg/dL (0.15-1.2) 05/26/24 12:02 AST 11 U/L (0-40) 05/26/24 12:02 ALT 13 U/L (0-41) 05/26/24 12:02 Alkaline Phosphatase 108 U/L (40-130) 05/26/24 12:02 C-Reactive Protein 24.0 mg/L (0.0-4.9) H 05/26/24 12:02 Total Protein 7.5 g/dL (6.6-8.7) 05/26/24 12:02 Albumin 3.6 g/dL (3.5-5.2) 05/26/24 12:02 Globulin 3.9 g/dL (1.3-4.6) 05/26/24 12:02 All radiology interpretation(s) finalized by discharge Discharge Plan Discharge Patient Disposition: Home Clinical Impression: Acute osteomyelitis of right foot Condition: Stable Prescriptions: New doxycycline monohydrate 100 mg capsule 100 mg PO Q12H 7 Days Qty: 14 0RF No Action insulin aspart U-100 [Novolog FlexPen U-100 Insulin] 100 unit/mL (3 mL) insulin pen See Rx Instructions .ROUTE .COMPLEX MDD 30 Qty: 15 0RF Rx Instructions: Inject, subcut, 3 times daily, after meals, based on sliding scale provided clopidogrel 75 mg tablet 75 mg PO DAILY 30 Days Qty: 30 0RF aspirin 81 mg tablet,delayed release (DR/EC) 81 mg PO DAILY 30 Days Qty: 30 0RF dapagliflozin propanediol [Farxiga] 10 mg tablet 10 mg PO DAILY Qty: 30 0RF Levemir FlexTouch U100 Insulin 100 unit/mL (3 mL) insulin pen 30 unit SUBCUT BID Qty: 15 0RF gabapentin 300 mg capsule 300 mg PO TID Qty: 90 0RF albuterol sulfate 90 mcg/actuation HFA aerosol inhaler 2 inh INHALATION Q4H PRN (Reason: shortness of breath or wheezing) Qty: 18 11RF famotidine 40 mg tablet 40 mg PO BID Qty: 60 2RF losartan 25 mg tablet 12.5 mg PO DAILY Qty: 45 0RF ropinirole 4 mg tablet 8 mg PO BID Qty: 180 0RF Discharge Orders: Discharge ED (Routine); Ordered 05/26/24 Ordered By: Gladys Taylor Referrals: Ivett Still MD [Primary Care Provider] - Activity Restrictions/Additional Instructions: As we discussed, you will see Dr. Day on May 29 at 7:30 AM. Make sure you arrive on time for this appointment. You need to fill your antibiotics today and start them immediately. As we discussed and at the recommendations of Dr. Day, I would like you to begin wearing your boot to the foot and absolutely no weight bearing with the use of crutches (these were provided prior to discharge). Do not try to poke or pop the lesion to the bottom of your foot. You do need to monitor for worsening redness, swelling, streaking up your foot or leg, or fevers. You need to return to the emergency department at any time if these occur. Print Language: Frisian Coding Level of Care Code ED Anatomy And Physiology Instructor for Osiris Ansari
--- NOTE | 2024-05-26 11:39 | XR_ITS ---
WS: [id number] XR foot RT min 3V* 21651 REASON FOR EXAM: plantar infection FINDINGS: Charcot arthropathy of the midfoot. Extensive erosion, fragmentation and joint space disruption in the intertarsal joints. Plantar bowing of the midfoot. Compared to the last examination of 08/06/2023 there is erosive change in the plantar displaced cuboid associated with adjacent soft tissue thickening that has obliterated the fat planes. XR/XR foot RT min 3V* 50320 IMPRESSION: Presumed plantar soft tissue infection with extension into the cuboid, osteomye litis, as above.
[2024-05-26 12:00] VITALS: PULSE 89; O2SAT 95
[2024-05-26 12:10] LABS: Basophils # 0.1 10^3/uL (0.0-0.1); Basophils % 1.1 %; Eosinophils # 0.4 10^3/uL (0.0-0.8); Eosinophils % 4.5 %; Hematocrit 42.5 % (37-53); Lymphocytes # 1.8 10^3/uL (0.8-4.8); Lymphocytes % 21.5 %; Mean Corpuscular HGB Conc 33.2 g/dL (30-55); Mean Corpuscular Hemoglobin 30.4 pg (27-33); Mean Corpuscular Volume 91.6 fl (82-101); Mean Platelet Volume 10.3 fL (7.4-10.4); Monocytes # 0.8 10^3/uL (0.2-0.9); Neutrophils # 5.14 10^3/uL (1.8-7.7); Neutrophils % 62.7 %; Nucleated Red Blood Cells % 0 %; Platelet Count 148 10^3/cmm (157-399); Red Blood Count 4.64 10^6/uL (3.85-5.65); Red Cell Distribution Width 12.8 % (12.1-15.1)
[2024-05-26 12:31] LABS: Lactic Sepsis W/Reflex 1.2 mmol/L (0.5-2.2)
[2024-05-26 12:32] LABS: Alanine Aminotransferase 13 U/L (0-41); Albumin Level 3.6 g/dL (3.5-5.2); Alkaline Phosphatase 108 U/L (40-130); Anion Gap 15.8 (5-19); Aspartate Amino Transferase 11 U/L (0-40); Blood Urea Nitrogen 34 mg/dL (8-23); Calcium 9.4 mg/dL (8.5-10.5); Carbon Dioxide 24 mmol/L (22-29); Chloride 99 mmol/L (98-107); Creatinine Clr Calc Pharmacy 60.6018; Globulin 3.9 g/dL (1.3-4.6); Glucose 333 mg/dL (65-115); Osmolality Calculated 299 mOsm/kg (285-295); Potassium 4.8 mmol/L (3.5-5.1); Sodium 134 mmol/L (136-145); Total Bilirubin 0.5 mg/dL (0.15-1.2); Total Protein 7.5 g/dL (6.6-8.7)
[2024-05-26 13:40] VITALS: BP 152/74; PULSE 85; O2SAT 95
== END 2024-05-26 13:50 | disposition home or self-care (01) ==
PROVIDERS: Emergency Provider Physician Assistant; PCP Family Medicine
DX: M86.171 Other acute osteomyelitis, right ankle and foot (principal); Z79.02 Long term (current) use of antithrombotics/antiplatelets; Z79.82 Long term (current) use of aspirin; Z87.891 Personal history of nicotine dependence; E10.22 Type 1 diabetes mellitus with diabetic chronic kidney disease; N18.2 Chronic kidney disease, stage 2 (mild); Z85.51 Personal history of malignant neoplasm of bladder
CPT/HCPCS: 36415; 73630; 80053; 83605; 85025; 86140; 87040; 99284; E0114

== ENCOUNTER → 2024-05-29 07:18 | Outpatient (BNVA) | payer MEDICARE, MEDICAID, SELFPAY | PROVIDERS: PCP Family Medicine; Visit Provider Podiatrist Foot & Ankle Surgery | DX: E11.621 Type 2 diabetes mellitus with foot ulcer (principal); L97.514 Non-pressure chronic ulcer of other part of right foot with necrosis of bone; E11.610 Type 2 diabetes mellitus with diabetic neuropathic arthropathy; Z79.4 Long term (current) use of insulin | CPT/HCPCS: 11044; 87070; 87075; 87077; 87186; 87205; 99214 ==

== ENCOUNTER → 2024-06-02 10:12 | Outpatient (BNVA) | payer MEDICARE, MEDICAID, SELFPAY | PROVIDERS: PCP Family Medicine; Visit Provider Internal Medicine | DX: I25.10 Atherosclerotic heart disease of native coronary artery without angina pectoris (principal); I10 Essential (primary) hypertension; Z87.891 Personal history of nicotine dependence | CPT/HCPCS: 99214 ==

== ENCOUNTER 2024-06-06 10:27 | Day surgery (SDC) | payer MEDICARE, MEDICAID, SELFPAY ==
--- NOTE | 2024-06-06 | XR_ITS ---
WS: [id number] Right foot, C-arm fluoroscopy images, 06/06/2024 Clinical Data: CAILIN IMAGES Comparison: Right foot, 05/26/2024 Findings: Dr. Day performed surgery on the right foot XR/XR foot RT 2V 30593 Impression: Right foot surgery.
[2024-06-06 10:46] VITALS: BP 114/70; PULSE 81; RESP 17; TEMP 36.8; O2SAT 95
[2024-06-06 10:47] VITALS: BMI 28.5
[2024-06-06 11:04] LABS: Glucose Point of Care 126 mg/dL (70-110)
[2024-06-06] MEDS: sodium chloride 0.9% 1,000 ML 30 ML IV (11:09)
--- NOTE | 2024-06-06 11:35 | W.PM.OPSUD ---
Surgery/Procedure H&P Update DATE OF PROCEDURE: June 06, 2024 DATE H&P PERFORMED: 05/29/24 H&P UPDATE INFORMATION: I have reviewed H&P completed within last 30 days, I have examined patient prior to procedure, No changes to prior documentation and H&P is in [facility] EMR on date indicated PREOP DIAGNOSIS: Osteomyelitis right foot PLANNED PROCEDURE: Operation Date: 06/06/24 12:30 Proposed Procedures p Incision And Drainage Incision of Bone Cortex(Right) - Noble Day DPM
[2024-06-06] MEDS: vancomycin 1,500 MG/300 ML PIGGYBACK 200 MG IV (11:57)
[2024-06-06] MEDS: BUPivacaine 0.5% INJ 30 mL 15 ML INJECTION (12:22)
[2024-06-06] MEDS: lidocaine 1% 10 ML INJ 15 ML INJECTION (12:22)
[2024-06-06] MEDS: VANCOMYCIN ADD-Vantage 1,000 MG VIAL 1000 MG XX (12:32)
[2024-06-06 12:44] VITALS: BP 116/64; PULSE 70; RESP 16; TEMP 36.3; O2SAT 94
--- NOTE | 2024-06-06 12:44 | P.BOP_ITS ---
Date of Procedure: 06/04/23 Surgeon: Noble Day DPM [employer] Technician(s): Minerva Procedure(s) performed: Incision of bone cortex right foot Findings of the procedure(s): Osteomyelitis right foot cuboid Estimated blood loss: 15 mL Specimen(s) removed: None, cultures were taken preoperatively at wound after debridement in clinic prior to antibiotics being initiated. Post-operative diagnosis: Osteomyelitis right foot
--- NOTE | 2024-06-06 12:45 | PM.OP ---
Operative Report Date of procedure: June 06, 2024 Pre-op diagnosis: Diabetic foot ulcer with osteomyelitis right foot L97.514 Post-op diagnosis: Diabetic foot ulcer with osteomyelitis right foot L97.514 Post-op findings: Devitalized bone right foot, cuboid. Procedure done: Incision of bone cortex right foot. CPT code 09197 Implants: 2-0 Vicryl, 3-0 nylon Specimens removed/disposition: Wound culture right plantar foot wound taken 05/29/2024 prior to initiation of antibiotic therapy was cultured after wound debridement and a deep culture was taken significant for MRSA sensitive to Bactrim which patient is prescribed and taking without adverse reaction. Surgeon: Noble Day DPM Laboratory Technologist: Augustin Seymour Estimated blood loss: 15 23 IV fluids: See intraoperative documentation Urine output: None Complications: No complications Brief History: 73-year-old male with a history of Charcot neuropathic osteoarthropathy presenting with a new right plantar foot ulcer. The ulcer developed as a pressure sore due to diminished sensation, indicating possible progression to osteomyelitis confirmed by imaging. Initial treatment with doxycycline commenced, with further intervention dependent on culture outcomes. Surgical debridement is prioritized to manage the infection effectively and increase preservation odds of foot function. 1. Diabetic Foot Ulcer The ulcer was thoroughly debrided to assess its extent to the bone, with doxycycline prescribed. The necessity of non-weight bearing is reinforced, and systemic symptoms of infection are monitored. Adapting the antibiotic approach will follow culture outcomes. 2. Type 2 Diabetes Mellitus Insulin therapy continues with recommendations for self-monitoring blood glucose levels to optimize wound healing and overall health. 3. Peripheral Neuropathy Vigilance in foot protection and routine inspection is heavily encouraged given the patient's neuropathic state to prevent further ulceration and injury. 4. Osteomyelitis Of The Right Foot Imaging has confirmed osteomyelitis at the cuboid, with a broad-spectrum oral regimen initiated. Proactive culture results will guide on IV antibiotic adjustments. Pre-operative aspirin and Plavix suspension is advised, pending surgical cleaning. - Remain completely off the affected foot to facilitate healing and prevent further damage. - Continue taking doxycycline as prescribed, with meals, twice daily. - Monitor for signs of systemic infection: fever, chills, or sweats and seek emergency care if they occur. - Hold aspirin and Plavix use as discussed in preparation for possible surgical intervention. - Ensure blood glucose levels are managed strictly as advised in diabetes care routine. - Abstain from undertaking foot soaks due to open wound exposure to the bone. -Postdebridement wound culture taken and sent to microbiology and adjust antibiotics as needed Scheduled for outpatient surgical debridement incision of bone cortex right foot I reviewed at length with the patient, the risks, potential complications, benefits, alternatives, expectations, and typical outcomes associated with the surgery. The risks and potential complications were explained in detail, including but not limited to infection, wound dehiscence or soft tissue complications, bleeding and hematoma, chronic edema, neuritis or nerve damage producing numbness or chronic pain, CRPS, failure to relieve pain or worsening pain, thick / painful / unsightly scar, limited motion / stiffness, malposition, delayed union, malunion, or nonunion, fracture, reaction to implants, anesthetic complications, venous thromboembolism, and deformity recurrence. I discussed the notion of no regrets with the patient as it pertains to complications and outcomes. The patient seemed to understand the nature of the proposed care and required convalescence. They asked appropriate questions, answered to their satisfaction. They are aware no guarantees can be made as to a satisfactory outcome and they understand there may be other possible unforeseen complications or outcomes not listed here that will be treated accordingly if they arise. There were no written or implied guarantees given to the patient. They gave informed consent to proceed. Procedure: Under mild sedation the patient was brought to the operating room and remained on the gurney in supine position. A timeout was performed. Anesthesia was then administered by the anesthesia service. Local anesthesia injected by myself consisting of one-to-one mixture 1% lidocaine and 0.5 to Marcaine plain in a V-block local field block fashion to the right plantar foot just proximal to the planned incision at rocker-bottom deformity with wound. Well-padded pneumatic tourniquet applied to the right ankle. Right lower extremity was scrubbed, prepped and draped utilizing normal aseptic technique. Attention was directed to the wound at the right plantar foot corresponding to bony exostosis from rocker-bottom deformity secondary to Charcot of the right foot wound probes directly to bone this was debrided sharply and excisionally nature with pickups and 15 blade of devitalized epidermis, dermis, subcutaneous tissue and myofascial layer, next incision was made at the lateral foot with dissection carried down to the level of the bony exostosis to allow appropriate trajectory to resect and debride devitalized cuboid this was done sharply with osteotome and rongeur with all rough edges being smoothed with a bone rasp, the cuboid bone was debrided of devitalized bone with incision of bone cortex sharply as above. Once all rough edges were smoothed the incision was irrigated with copious amounts of sterile saline solution. The wound was closed in a layered fashion with deep fascia reapproximated with 2-0 Vicryl, subcutaneous tissue with 3-0 Vicryl and skin with the wound three 4-0 nylon. The incision and the plantar wound were then dressed with Xeroform sterile gauze Kerlix and Connor wrap followed by application of a cam boot. Tourniquet was deflated and a prompt hyperemic response was noted to the distal digits of the right foot. Patient tolerated procedure and anesthesia well and was transferred to the PACU with vital signs stable and vascular status intact. Following a period of postoperative monitoring patient will be discharged home without home care instructions and scheduled follow-up.
[2024-06-06 12:49] VITALS: BP 118/60; PULSE 67; RESP 16; O2SAT 92
[2024-06-06 12:54] VITALS: BP 107/53; PULSE 68; RESP 16; O2SAT 93
[2024-06-06 12:59] VITALS: BP 104/51; PULSE 68; RESP 16; TEMP 36.4; O2SAT 93
[2024-06-06 13:01] VITALS: BP 135/74; PULSE 64; RESP 16; TEMP 36.4; O2SAT 94
--- NOTE | 2024-06-06 13:40 | ANE.PACU2 ---
Inpatient post-anesthesia follow up: Airway intact: Yes Vital signs: Temperature 97.5 F Pulse Rate 64 Respiratory Rate 16 Blood Pressure 135/74 Pulse Oximetry 94 Oxygen Delivery Me thod Room Air Oxygen Flow Rate Fraction of Inspir ed Oxygen Hydration adequate: Yes Nausea and vomiting: No Pain level: 1 Mental status: Baseline
== END 2024-06-06 13:40 | disposition home or self-care (01) ==
PROVIDERS: PCP Family Medicine; Visit Provider Podiatrist Foot & Ankle Surgery
PROC: (CPT 28005; principal; 2024-06-06 12:30)
DX: E11.69 Type 2 diabetes mellitus with other specified complication (principal); M86.8X7 Other osteomyelitis, ankle and foot; E11.22 Type 2 diabetes mellitus with diabetic chronic kidney disease; E11.610 Type 2 diabetes mellitus with diabetic neuropathic arthropathy; E11.42 Type 2 diabetes mellitus with diabetic polyneuropathy; E11.621 Type 2 diabetes mellitus with foot ulcer; G47.33 Obstructive sleep apnea (adult) (pediatric); L97.514 Non-pressure chronic ulcer of other part of right foot with necrosis of bone; Z86.14 Personal history of Methicillin resistant Staphylococcus aureus infection; Z79.899 Other long term (current) drug therapy; Z79.02 Long term (current) use of antithrombotics/antiplatelets; Z79.82 Long term (current) use of aspirin; Z79.4 Long term (current) use of insulin; N18.2 Chronic kidney disease, stage 2 (mild); Z85.51 Personal history of malignant neoplasm of bladder; Z87.891 Personal history of nicotine dependence
CPT/HCPCS: 28005; 36415; 36416; 73620; 76000; 82962; J2704; J3010; J3370; J3490; J7030; J9999

== ENCOUNTER → 2024-06-07 11:03 | Outpatient (BNVA) | payer MEDICARE, MEDICAID, SELFPAY | PROVIDERS: PCP Family Medicine; Visit Provider Podiatrist Foot & Ankle Surgery | DX: E11.621 Type 2 diabetes mellitus with foot ulcer (principal); L97.514 Non-pressure chronic ulcer of other part of right foot with necrosis of bone; Z79.4 Long term (current) use of insulin; E11.610 Type 2 diabetes mellitus with diabetic neuropathic arthropathy | CPT/HCPCS: 99213 ==

== ENCOUNTER 2024-06-12 16:36 | Emergency (ER) | payer MEDICARE, MEDICAID, SELFPAY ==
[2024-06-12 16:39] VITALS: BP 129/82; PULSE 99; RESP 15; TEMP 37.1; O2SAT 92; BMI 28.5
--- NOTE | 2024-06-12 16:43 | CTR_ITS ---
PROCEDURE INFORMATION: Exam: CT Head Without Contrast Exam date and time: 06/12/2024 5:12 PM Age: 73 years old Clinical indication: Injury or trauma; Fall; Blunt trauma (contusions or hematomas); With loss of consciousness; Not specified; Injury details: PT fell downstairs was found by family. PT has a lac to posterior head and hematoma to left frontal. ; Additional info: Fall w loc TECHNIQUE: Imaging protocol: Computed tomography of the head without contrast. Radiation optimization: All CT scans at this facility use at least one of these dose optimization techniques: automated exposure control; mA and/or kV adjustment per patient size (includes targeted exams where dose is matched to clinical indication); or iterative reconstruction. COMPARISON: CT head wo con* [id number] 04/14/2024 10:42 AM RADIATION DOSE METRICS: Total DLP (mGy-cm): 1185.76 FINDINGS: Brain: Thin subdural hemorrhage along the planum sphenoidale on the left measuring up to 3 mm in thickness. Small subarachnoid hemorrhage involving the left frontal lobe. No mass effect or midline shift. Esparza-white differentiation is maintained. Basilar cisterns are patent. Cerebral ventricles: No hydrocephalus. Paranasal sinuses: There is hemorrhage within the maxillary sinuses, [id number]-left. Dedicated CT maxillofacial is recommended to evaluate for additional facial fractures. Mastoid air cells: The visualized mastoids and middle ears are clear. Bones: Acute nondisplaced fracture through the nasal bridge on the left in the frontal ethmoid region (for example, images 72-73 of series 7). Questionable subtle nondisplaced fracture of the anterior cranial fossa and lamina papyracea. Soft tissues: Prominent left frontal scalp/forehead contusion. CT/CT head wo con* [id number] IMPRESSION: 1. Acute subarachnoid hemorrhage and thin subdural hemorrhage along the planum sphenoidale. 2. Acute nondisplaced fracture of the nasal bridge and suspected subtle nondisplaced maxillary sinus and anterior cranial fossa fractures. Dedicated CT maxillofacial is recommended. The findings were verbally communicated by telephone with Dr. WEBB at 5:29 PM CDT on 06/12/2024.
--- NOTE | 2024-06-12 16:53 | ECG_ITS ---
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 Measurements Intervals Bryant Rate: 118 P: 24 VA: 161 QRS: -40 QRSD: 130 T: 37 QT: 337 QTc: 474 Interpretive Statements SINUS TACHYCARDIA WITH FREQUENT VENTRICULAR PREMATURE COMPLEXES RIGHT BUNDLE BRANCH BLOCK [120+ ms QRS DURATION, UPRIGHT V1, 40+ ms S IN I/aVL/V4/V5/V6] INFERIOR MYOCARDIAL INFARCTION , PROBABLY OLD [40+ ms Q WAVE AND/OR ST/T ABNORMALITY IN II/aVF] Compared to ECG 05/08/2024 19:14:41 Ventricular premature complex(es) now present Myocardial infarct finding now present Sinus rhythm no longer present Electronically Signed On 06-12-2024 20:57:38 CDT by Ha Cisneros M.D. [email or web address]
[2024-06-12 16:58] LABS: Basophils # 0.1 10^3/uL (0.0-0.1); Basophils % 0.6 %; Eosinophils # 0.1 10^3/uL (0.0-0.8); Eosinophils % 0.7 %; Lymphocytes % 10.2 %; Mean Corpuscular HGB Conc 33.3 g/dL (30-55); Mean Corpuscular Hemoglobin 30.2 pg (27-33); Mean Corpuscular Volume 90.9 fl (82-101); Mean Platelet Volume 9.8 fL (7.4-10.4); Monocytes # 1.4 10^3/uL (0.2-0.9); Monocytes % 13.9 %; Neutrophils # 7.26 10^3/uL (1.8-7.7); Neutrophils % 74.2 %; Nucleated Red Blood Cells % 0 %; Platelet Count 187 10^3/cmm (157-399); Red Cell Distribution Width 12.5 % (12.1-15.1); White Blood Count 9.79 10^3/uL (3.29-11.43)
--- NOTE | 2024-06-12 17:00 | CTR_ITS ---
PROCEDURE INFORMATION: Exam: CT Cervical Spine Without Contrast Exam date and time: 06/12/2024 5:12 PM Age: 73 years old Clinical indication: Injury or trauma; Fall; Blunt trauma; Injury details: Fell down stairs. C-collar in place TECHNIQUE: Imaging protocol: Computed tomography of the cervical spine without contrast. Radiation optimization: All CT scans at this facility use at least one of these dose optimization techniques: automated exposure control; mA and/or kV adjustment per patient size (includes targeted exams where dose is matched to clinical indication); or iterative reconstruction. COMPARISON: CR (NECK, ) 04/17/2023 9:52 PM RADIATION DOSE METRICS: Total DLP (mGy-cm): 277.3 FINDINGS: Bones/joints: Moderate multilevel uncovertebral hypertrophy and facet arthrosis. No evidence of acute fracture or subluxation of the cervical spine. The craniocervical junction including the atlantoaxial and atlantooccipital articulations are intact. C2-C3: No central or foraminal stenosis. C3-C4: Uncovertebral hypertrophy results in moderate-severe left-sided and mild right-sided foraminal stenosis. No central stenosis. C4-C5: Uncovertebral hypertrophy results in mild bilateral foraminal stenosis. Posterior disc protrusion results in mild central stenosis. C5-C6: Uncovertebral hypertrophy results in moderate right-sided and mild left-sided foraminal stenosis. No central stenosis. C6-C7: Uncovertebral hypertrophy results in severe right-sided and moderate left-sided foraminal stenosis. Posterior disc osteophyte complex results in mild central stenosis. C7-T1: No central or foraminal stenosis. Lungs: The visualized lung apices are clear. Soft tissues: No gross soft tissue abnormality. No significant prevertebral edema. No evidence of fluid collection or hematoma. CT/CT cervical spin wo con* [id number] IMPRESSION: 1. No evidence of fracture or subluxation of the cervical spine. 2. Severe foraminal stenosis on the right at C6-C7. Consider correlation with follow-up outpatient MRI if there is concern for neural impingement.
--- NOTE | 2024-06-12 17:03 | ED_ITS ---
HPI - Fall 2 General: Chief Complaint: Fall Stated Complaint: fall; loc Time Seen by Provider: 06/12/24 16:43 History of Present Illness: 73-year-old male presents to the emergen cy room with complaints of having had a fall at home he states he got dizzy while he was on the stairs he fell down several stairs hit his head he has a laceration on his scalp it is wrapped up when initially seen him. He also has a c-collar in place he denies any chest pain he is uncertain if he lost consciousness. He is on aspirin and clopidogrel no direct anticoagulants. Patient had been down for a time and was found by a bystander he normally wears 2 L of oxygen by nasal cannula remote history of bladder cancer for which he underwent a bladder resection several years ago he has a urostomy tube in place but no urostomy bag on the stoma just leaking across his abdomen at this time he was unable to tell the nurse why he did not have a stoma bag on. He has a stomal hernia has been present for some time. He denies chest pain or abdominal pain or more shortness of breath. Associated symptoms-after fall: Denies abdominal pain, chest pain or neck pain Related Data Previous Rx's ?Medication ?Instructions ?Recorded insulin aspart U-100 100 unit/mL See Rx Instructions . Route 05/01/24 (3 mL) subcutaneous pen (Novolog .COMPLEX #15 mL FlexPen U-100 Insulin aspart) famotidine 40 mg tablet 40 mg PO BID #60 tabs losartan 25 mg tablet 12.5 mg (1/2 x 25 mg) PO PANCHO LY #45 05/16/24 tabs ropinirole 4 mg tablet 8 mg (2 x 4 mg) PO BID #180 tabs 05/16/24 aspirin 81 mg tablet,delayed 81 mg PO DAILY 30 days #3 0 tabs 05/22/24 release clopidogrel 75 mg tablet 75 mg PO DAILY 30 days #30 t abs 05/22/24 gabapentin 300 mg capsule 300 mg PO TID #90 caps 05/22 insulin detemir U-100 100 unit/mL 30 unit (0.3 mL) SUB CUT BID #15 mL 05/22/24 (3 mL) subcutaneous pen (Levemir FlexTouch U-100 Insulin) sulfamethoxazole 800 1 tab PO BID 14 days #28 tab s 06/01/24 mg-trimethoprim 160 mg tablet (Bactrim DS) albuterol sulfate 90 mcg/actuation 2 inh inhalation Q4 H PRN shortness 06/02/24 aerosol inhaler of breath or wheezing #18 gr ams blood sugar diagnostic (OneTouch #50 ea 06/12/24 Ultra Test strips) Allergies Allergy/AdvReac Type Severity Reaction Status Date / Time Penicillins Allergy ALGY-Hives Verified 06/07/24 11:05 Review of Systems 2 Const: Denies: fever(s) or chills Card: Denies: chest pain Resp: Denies: dyspnea GI: Denies: abdominal pain : Denies: dysuria, urinary frequency or urinary urgency Musc: Denies: neck pain or back pain Skin/Breast: Denies: rash PFSH ED 2 PFSH: Medical History 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 BG well controlled with scheduled insulin -consistent carb diet as tolerated Parastomal hernia PETER (obstructive sleep apnea) History of bladder cancer Hx of intestinal obstruction Surgical History History of appendectomy History of cholecystectomy History of shoulder surgery History of urostomy History of esophageal hernia repair Family History Mother Thyroid disease Hypertension Father Hypertension Social History Smoking and tobacco/nicotine status: former use of tobacco/nicotine Quit status (tobacco/nicotine): has quit using Year quit tobacco: 2009 Former quit date comment: previously 4 ppd Alcohol intake: former Substance/Drug Use: never Lives independently: Yes Household members: other Details: brother Marital status: / Number of children: 1 Number of grandchildren: 2 service: No Current occupational status: retired and 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 No active bleeding no full-thickness laceration. No other open wounds on the head Resp: COMMON NORMALS: normal respiratory effort, No retractions, No use of accessory muscles and clear to auscultation bilaterally AUSCULTATION: clear to auscultation bilaterally Cardio: COMMON NORMALS: regular rate, regular rhythm and No murmurs present (Cardio) RATE: regular rate RHYTHM: regular rhythm GI: COMMON NORMALS: Soft to palpation and No hepatosplenomegaly present A USCULTATION: Yes normoactive bowel sounds PALPATION: Yes Soft to palpation, No Tenderness to palpation present (GI), No Guarding due to palpation present (GI) and Yes No hepatosplenomegaly present Extremity: COMMON NORMALS: normal to inspection, capillary refill normal, no clubbing, cyanosis or edema, no calf tenderness and no pedal edema Neuro: SENSORIUM/ORIENTATION: Yes oriented to person, Yes oriented to place and Yes oriented to time OTHER: Khadijah Coma Scale 15 Skin: COMMON NORMALS: no rashes or lesions noted GENERAL SKIN EXAM: no rashes or lesions noted Course 2 Vital Signs: Vital signs: Vital Signs Temperature 98.7 F 06/12/24 16:39 Pulse Rate 103 H 06/12/24 18:25 Respiratory Rate 18 06/12/24 18:13 Blood Pressure 129/87 06/12/24 18:11 Pulse Oximetry 96 06/12/24 18:13 Oxygen Delivery Me thod Nasal Cannula 06/12/24 18:13 Oxygen Flow Rate 2 06/12/24 18:13 MDM - Fall Medical Decision Making CT shows subdural and subarachnoid bleeding with a skull fracture noted as well on the facial bones at the cribriform plate. Transfer patient to trauma services at [facility] in [place]. He does take aspirin and clopidogrel. Patient is still awake and alert answering questions. Khadijah Coma Scale of 15. Medical Records I reviewed the patient's medical records. Lab Data I reviewed the patient's lab results. 06/12/24 16:50 06/12/24 16:[address] 06/12/24 16:43 IMPRESSION: 1. Acute subarachnoid hemorrhage and thin subdural hemorrhage along the planum sphenoidale. 2. Acute nondisplaced fracture of the nasal bridge and suspected subtle nondisplaced maxillary sinus and anterior cranial fossa fractures. Dedicated CT maxillofacial is recommended. The findings were verbally communicated by telephone with Dr. WEBB at 5:29 PM CDT on 06/12/2024. Cervical Spine CT 06/12/24 17:00 IMPRESSION: 1. No evidence of fracture or subluxation of the cervical spine. 2. Severe foraminal stenosis on the right at C6-C7. Consider correlation with follow-up outpatient MRI if there is concern for neural impingement. Face CT 06/12/24 17:35 IMPRESSION: 1. Acute nondisplaced fracture of the left nasal bridge extending into the anterior aspect of the lamina papyracea. 2. Acute nondisplaced hairline fracture of the anterior cranial fossa in the region of the cribriform plate. 3. Opacification of the right maxillary sinus with hemorrhage/blood products. 4. Partial opacification of the left maxillary sinus and ethmoid air cells. Laboratory Results WBC 9.79 10^3/uL (3.29-11.43) 06/12/24 16:50 RBC 4.40 10^6/uL (3.85-5.65) 06/12/24 16:50 Hgb 13.30 g/dL (11.27-16.99) 06/12/24 16:50 Hct 40.0 % (37-53) 06/12/24 16:50 MCV 90.9 fl (82-101) 06/12/24 16:50 MCH 30.2 pg (27-33) 06/12/24 16:50 MCHC 33.3 g/dL (30-55) 06/12/24 16:50 RDW 12.5 % (12.1-15.1) 06/12/24 16:50 Plt Count 187 10^3/cmm (157-399) 06/12/24 16:50 MPV 9.8 fL (7.4-10.4) 06/12/24 16:50 Neut % (Auto) 74.2 % 06/12/24 16:50 Lymph % (Auto) 10.2 % 06/12/24 16:50 Butler % (Auto) 13.9 % 06/12/24 16:50 Eos % (Auto) 0.7 % 06/12/24 16:50 Baso % (Auto) 0.6 % 06/12/24 16:50 Neut # (Auto) 7.26 10^3/uL (1.8-7.7) 06/12/24 16:50 Lymph # (Auto) 1.0 10^3/uL (0.8-4.8) 06/12/24 16:50 Butler # (Auto) 1.4 10^3/uL (0.2-0.9) H 06/12/24 16:50 Eos # (Auto) 0.1 10^3/uL (0.0-0.8) 06/12/24 16:50 Baso # (Auto) 0.1 10^3/uL (0.0-0.1) 06/12/24 16:50 Nucleated RBC % (auto) 0 % 06/12/24 16:50 Nucleated RBCs # 0.0 /100WBC 06/12/24 16:50 Sodium 132 mmol/L (136-145) L 06/12/24 16:50 Potassium 5.2 mmol/L (3.5-5.1) H 06/12/24 16:50 Chloride 98 mmol/L (98-107) 06/12/24 16:50 Carbon Dioxide 21 mmol/L (22-29) L 06/12/24 16:50 Anion Gap 18.2 (5-19) 06/12/24 16:50 BUN 34 mg/dL (8-23) H 06/12/24 16:50 Creatinine 1.5 mg/dL (0.7-1.2) H 06/12/24 16:50 GFR Calculation Not Reportable 06/12/24 16:50 Glucose 149 mg/dL (65-115) H 06/12/24 16:50 Calculated Osmolality 284 mOsm/kg (285-295) L 06/12/24 16:50 Calcium 9.0 mg/dL (8.5-10.5) 06/12/24 16:50 Total Bilirubin 0.5 mg/dL (0.15-1.2) 06/12/24 16:50 AST 13 U/L (0-40) 06/12/24 16:50 ALT 15 U/L (0-41) 06/12/24 16:50 Alkaline Phosphatase 96 U/L (40-130) 06/12/24 16:50 Troponin T Baseline 40 ng/L (0-15) H 06/12/24 16:50 Total Protein 7.5 g/dL (6.6-8.7) 06/12/24 16:50 Albumin 4.1 g/dL (3.5-5.2) 06/12/24 16:50 Globulin 3.4 g/dL (1.3-4.6) 06/12/24 16:50 All radiology interpretation(s) finalized by discharge Discharge Plan Discharge Patient Disposition: Xfer Short-Term Hosp Clinical Impression: Subarachnoid hemorrhage, Subdural hematoma, Nasal bone fx-closed Condition: Stable Referrals: Ivett Still MD [Primary Care Provider] - Print Language: Bhutanese Coding Level of Care Code ED Back End Engineer for Osiris Ansari
[2024-06-12 17:18] LABS: Troponin(5th) Baseline 40 ng/L (0-15)
[2024-06-12 17:30] LABS: Alanine Aminotransferase 15 U/L (0-41); Albumin Level 4.1 g/dL (3.5-5.2); Alkaline Phosphatase 96 U/L (40-130); Anion Gap 18.2 (5-19); Aspartate Amino Transferase 13 U/L (0-40); Blood Urea Nitrogen 34 mg/dL (8-23); Carbon Dioxide 21 mmol/L (22-29); Chloride 98 mmol/L (98-107); Creatinine Clr Calc Pharmacy 52.5215; Globulin 3.4 g/dL (1.3-4.6); Glucose 149 mg/dL (65-115); Osmolality Calculated 284 mOsm/kg (285-295); Potassium 5.2 mmol/L (3.5-5.1); Sodium 132 mmol/L (136-145); Total Bilirubin 0.5 mg/dL (0.15-1.2); Total Protein 7.5 g/dL (6.6-8.7)
--- NOTE | 2024-06-12 17:35 | CTR_ITS ---
PROCEDURE INFORMATION: Exam: CT Maxillofacial Without Contrast Exam date and time: 06/12/2024 5:46 PM Age: 73 years old Clinical indication: Injury or trauma; Fall; Blunt trauma (contusions or hematomas); Forehead and orbit/periorbital; Left TECHNIQUE: Imaging protocol: Computed tomography of the face without contrast. Radiation optimization: All CT scans at this facility use at least one of these dose optimization techniques: automated exposure control; mA and/or kV adjustment per patient size (includes targeted exams where dose is matched to clinical indication); or iterative reconstruction. COMPARISON: CT head wo con* [id number] 06/12/2024 5:12 PM RADIATION DOSE METRICS: Total DLP (mGy-cm): 606.78 FINDINGS: Bones/soft tissues: Acute nondisplaced fracture of the left nasal bridge extending into the lamina papyracea where there is a hairline fracture (for example, images 60-63 of series 6). Of the right maxillary sinus is opacified by fluid/blood products. Partial opacification of the left maxillary sinus with blood products and secretions. Partial opacification of the ethmoid air cells as well. Suspected subtle nondisplaced hairline fracture of the anterior cranial fossa in the region of the cribriform plate (image 47 of series 6). Lucency along the lateral wall of the right maxillary sinus is favored to represent a prominent vascular groove. Given the volume of hemorrhage within the right maxillary sinus, a subtle nondisplaced hairline fracture of the right maxillary sinus would be difficult to exclude. Prominent left forehead/frontal scalp contusion again noted. Orbital cavities: The globes, intraconal/extraconal fat, extraocular muscles and optic nerves are grossly unremarkable. Other: Please see separate report of recent noncontrast CT of the head for discussion regarding intracranial hemorrhage. CT/CT facial bones wo con* [id number] IMPRESSION: 1. Acute nondisplaced fracture of the left nasal bridge extending into the anterior aspect of the lamina papyracea. 2. Acute nondisplaced hairline fracture of the anterior cranial fossa in the region of the cribriform plate. 3. Opacification of the right maxillary sinus with hemorrhage/blood products. 4. Partial opacification of the left maxillary sinus and ethmoid air cells.
--- NOTE | 2024-06-12 17:53 | PC.NURSE ---
unable to get urine d/t pt having urostomy; bag not attached and pt urinated on chux on arrival.
[2024-06-12 18:11] VITALS: BP 129/87; O2SAT 94
[2024-06-12] MEDS: albuterol 2.5 mg/3 mL Neb 10 MG INHALATION (18:12)
[2024-06-12 18:13] VITALS: PULSE 107; RESP 18; O2SAT 96
--- NOTE | 2024-06-12 18:16 | PC.NURSE ---
report called to ÁNGLEA Kelly at [facility]. Report #
[2024-06-12 18:25] VITALS: PULSE 103
--- NOTE | 2024-06-12 18:43 | ECG_ITS ---
[facility] Test Date: 2024-06-12 Pat Name: Cole Troncoso Department: Room: Gender: Male World Designer: : 1950 Requested By: Jordy Heaton Order Number: [id number] Sharri MD: Ha Cisneros M.D. Measurements Intervals [place] Rate: 107 P: 15 MS: 155 QRS: -22 QRSD: 134 T: 38 QT: 339 QTc: 454 Interpretive Statements SINUS TACHYCARDIA BORDERLINE LEFT AXIS DEVIATION [QRS AXIS < -20] RIGHT BUNDLE BRANCH BLOCK [120+ ms QRS DURATION, UPRIGHT V1, 40+ ms S IN I/aVL/V4/V5/V6] Compared to ECG 06/12/2024 16:53:11 Ventricular premature complex(es) no longer present Myocardial infarct finding no longer present Electronically Signed On 06-12-2024 21:04:19 CDT by Ha Cisneros M.D. [email or web address]
== END 2024-06-12 19:27 | disposition short-term general hospital (02) ==
PROVIDERS: Emergency Provider Family Medicine; PCP Family Medicine
DX: S06.5XAA Traumatic subdural hemorrhage with loss of consciousness status unknown, initial encounter (principal); S02.2XXA Fracture of nasal bones, initial encounter for closed fracture; Z87.891 Personal history of nicotine dependence; Z85.51 Personal history of malignant neoplasm of bladder; N18.2 Chronic kidney disease, stage 2 (mild); W19.XXXA Unspecified fall, initial encounter
CPT/HCPCS: 36415; 70450; 70486; 72125; 80053; 84484; 85025; 93005; 94640; 99284; J7613

== ENCOUNTER → 2024-07-06 13:20 | Outpatient (BNVA) | payer MEDICARE, MEDICAID, SELFPAY | PROVIDERS: PCP Family Medicine; Visit Provider Podiatrist Foot & Ankle Surgery | DX: E11.610 Type 2 diabetes mellitus with diabetic neuropathic arthropathy (principal); L97.514 Non-pressure chronic ulcer of other part of right foot with necrosis of bone; Q66.81 Congenital vertical talus deformity, right foot; E11.621 Type 2 diabetes mellitus with foot ulcer; Z79.4 Long term (current) use of insulin | CPT/HCPCS: 99213 ==

== ENCOUNTER → 2024-07-14 09:09 | Outpatient (BNVA) | payer MEDICARE, MEDICAID, SELFPAY | PROVIDERS: PCP Family Medicine; Visit Provider Nurse Practitioner Family | DX: I25.10 Atherosclerotic heart disease of native coronary artery without angina pectoris (principal); I12.9 Hypertensive chronic kidney disease with stage 1 through stage 4 chronic kidney disease, or unspecified chronic kidney disease; E11.22 Type 2 diabetes mellitus with diabetic chronic kidney disease; E11.65 Type 2 diabetes mellitus with hyperglycemia; Z79.4 Long term (current) use of insulin; N18.2 Chronic kidney disease, stage 2 (mild); Z79.01 Long term (current) use of anticoagulants; Z79.82 Long term (current) use of aspirin; Z87.891 Personal history of nicotine dependence | CPT/HCPCS: 99214 ==

== ENCOUNTER → 2024-07-17 10:36 | Outpatient (BNVA) | payer MEDICARE, MEDICAID, SELFPAY | PROVIDERS: PCP Family Medicine; Visit Provider Podiatrist Foot & Ankle Surgery | DX: E11.610 Type 2 diabetes mellitus with diabetic neuropathic arthropathy (principal); E11.621 Type 2 diabetes mellitus with foot ulcer; L97.514 Non-pressure chronic ulcer of other part of right foot with necrosis of bone; L97.512 Non-pressure chronic ulcer of other part of right foot with fat layer exposed; Q66.81 Congenital vertical talus deformity, right foot | CPT/HCPCS: 99213 ==

== ENCOUNTER 2024-07-24 09:06 | Outpatient (CLI) | payer MEDICARE, MEDICAID, SELFPAY ==
[2024-07-24 10:08] LABS: Basophils # 0.1 10^3/uL (0.0-0.1); Basophils % 1.2 %; Eosinophils # 0.3 10^3/uL (0.0-0.8); Eosinophils % 4.7 %; Hematocrit 39.1 % (37-53); Lymphocytes # 1.7 10^3/uL (0.8-4.8); Lymphocytes % 25.9 %; Mean Corpuscular HGB Conc 32.7 g/dL (30-55); Mean Corpuscular Hemoglobin 29.6 pg (27-33); Mean Corpuscular Volume 90.3 fl (82-101); Mean Platelet Volume 9.8 fL (7.4-10.4); Monocytes # 0.7 10^3/uL (0.2-0.9); Monocytes % 10.1 %; Neutrophils # 3.73 10^3/uL (1.8-7.7); Neutrophils % 57.8 %; Nucleated Red Blood Cells % 0 %; Platelet Count 213 10^3/cmm (157-399); Red Blood Count 4.33 10^6/uL (3.85-5.65); Red Cell Distribution Width 12.7 % (12.1-15.1); White Blood Count 6.45 10^3/uL (3.29-11.43)
[2024-07-24 10:13] LABS: Erythrocyte Sedimentation Rate 39 mm/hr (0-10)
[2024-07-24 10:33] LABS: Alanine Aminotransferase 16 U/L (0-41); Albumin Level 3.8 g/dL (3.5-5.2); Alkaline Phosphatase 104 U/L (40-130); Aspartate Amino Transferase 13 U/L (0-40); Blood Urea Nitrogen 24 mg/dL (8-23); C Reactive Protein 29.2 mg/L (0.0-4.9); Calcium 9.1 mg/dL (8.5-10.5); Carbon Dioxide 25 mmol/L (22-29); Chloride 99 mmol/L (98-107); Globulin 4.5 g/dL (1.3-4.6); Glucose 229 mg/dL (65-115); Osmolality Calculated 291 mOsm/kg (285-295); Sodium 135 mmol/L (136-145); Total Bilirubin 0.3 mg/dL (0.15-1.2); Total Protein 8.3 g/dL (6.6-8.7)
== END 2024-07-24 09:07 | disposition home or self-care (01) ==
LOC: LAB 09:08
PROVIDERS: PCP Family Medicine; Visit Provider Podiatrist Foot & Ankle Surgery
DX: E11.621 Type 2 diabetes mellitus with foot ulcer (principal); L97.514 Non-pressure chronic ulcer of other part of right foot with necrosis of bone; E11.610 Type 2 diabetes mellitus with diabetic neuropathic arthropathy; E11.42 Type 2 diabetes mellitus with diabetic polyneuropathy; L97.512 Non-pressure chronic ulcer of other part of right foot with fat layer exposed; Q66.81 Congenital vertical talus deformity, right foot; Z79.4 Long term (current) use of insulin
CPT/HCPCS: 11043; 36415; 80053; 85025; 85651; 86140; 99214

== ENCOUNTER → 2024-07-27 10:49 | Day surgery (SDC) | payer MEDICARE, MEDICAID, SELFPAY ==
[2024-07-27 11:14] VITALS: BP 133/74; PULSE 79; RESP 16; TEMP 36.7; O2SAT 96
--- NOTE | 2024-07-27 11:17 | XR_ITS ---
WS: [id number] XR chest 1V portable [id number] REASON FOR EXAM: Post PICC insertion FINDINGS: Right arm PICC line has been placed. The tip is in the distal superior vena cava in a position appropriate for use. The PICC line position was relayed to the cytotechnologist/cytology supervisor over the phone at 11:43 a.m. No acute abnormality of the chest. XR/XR chest 1V portable [id number] IMPRESSION: Right arm PICC line placement in proper position for use.
[2024-07-27] MEDS: VANCOMYCIN ADD-Vantage 1,000 MG in 0.9% NaCl ADD-Vantage 250 ML 250 MG IV (12:00)
--- NOTE | 2024-07-27 12:34 | PICC.NOTE ---
Single lumen PICC placed to right basilic vein. Referred to vascular access nurse for PICC placement due to need for IV antibiotics x 6 weeks. Risks and benefits discussed and informed consent obtained from pt. Right arm assessed with right basilic vein measuring 4.9 mm, straight, and apparent best choice for placement. Using sterile technique and MST, right basilic vein accessed x 1 stick. Mid-arm circumference measured 10 cm from right AC 30 cm. Trimmed cath 46 cm with 0 cm external length noted. CXR shows tip in SVC, in good position for use per radiologist. Line secured with stat-lock. Insertion site covered with Biopatch and TSM. Report called and faxed to [facility], [facility], and Dr. Day's nurse. Pt educated on how to properly flush PICC and administer antibiotic. Pt states he has a friend that will be helping him with his infusion at home. Education packet sent with pt.
== END ==
PROVIDERS: PCP Family Medicine; Visit Provider Podiatrist Foot & Ankle Surgery
DX: L97.514 Non-pressure chronic ulcer of other part of right foot with necrosis of bone (principal)
CPT/HCPCS: 36573; 71045; 96365; J3370; J7050

== ENCOUNTER → 2024-08-01 08:12 | Outpatient (BNVA) | payer MEDICARE, MEDICAID, SELFPAY | PROVIDERS: PCP Family Medicine; Visit Provider Podiatrist Foot & Ankle Surgery | DX: E11.621 Type 2 diabetes mellitus with foot ulcer (principal); E11.610 Type 2 diabetes mellitus with diabetic neuropathic arthropathy; L97.514 Non-pressure chronic ulcer of other part of right foot with necrosis of bone; Q66.81 Congenital vertical talus deformity, right foot; L97.512 Non-pressure chronic ulcer of other part of right foot with fat layer exposed; Z79.4 Long term (current) use of insulin | CPT/HCPCS: 99214 ==

== ENCOUNTER 2024-08-01 10:03 | Outpatient (CLI) | payer MEDICARE, MEDICAID, SELFPAY ==
[2024-08-01 15:18] LABS: Blood Urea Nitrogen 28 mg/dL (8-23); C Reactive Protein 12.9 mg/L (0.0-4.9)
== END 2024-08-01 10:04 | disposition home or self-care (01) ==
LOC: LAB 10:06
PROVIDERS: PCP Family Medicine; Visit Provider Internal Medicine
DX: E11.610 Type 2 diabetes mellitus with diabetic neuropathic arthropathy (principal); Z79.2 Long term (current) use of antibiotics
CPT/HCPCS: 82565; 84520; 86140

== ENCOUNTER 2024-08-02 06:08 | Outpatient (CLI) | payer MEDICARE, MEDICAID, SELFPAY ==
[2024-08-02] VITALS (20 sets, daily range): BP systolic 112–156; BP diastolic 58–98; PULSE 57–81; RESP 15–22; TEMP 36.6–36.9; O2SAT 87–98; BMI 30.5
--- NOTE | 2024-08-02 06:12 | XACV_ITS ---
Ht: 183 cm Wt: 102 kg BSA: 2.30 m2 Gender: Male : 1950 Any Known Allergies: Penicillins Exam Priority: Routine Procedure(s): Procedure Description: Diagnostic procedure Procedure Description: PCI procedure Procedure Description: PTCA Procedure Description: Miscellaneous Procedure Description: ACT Procedure Description: Coronary Angiography Diagnostic Cath Status: Elective Diagnostic Findings * INDICATION: Staged PCI of Diagonal. * 1st Diagonal: critical 95-99%% stenosis, SHAGGY: 3 flow. This is calcified vessel. * Patent left main artery. Patent proximal LAD stent. Left circumflex artery is patent. Diagonal artery has critical stenosis that is heavily calcified. PCI Indication: Staged PCI Interventional Findings * 1st Diagonal: 95% stenosis treated with a AB MINI TREK 2.00X12 RX BALLOON, and AB TREK 2.25X15 RX BALLOON. 50 % residual stenosis, SHAGGY: 3 flow. * Procedure detail: We engaged left main artery with XB 3.5 guide catheter. IV heparin was administered to maintain anticoagulation. Run-through wire was used to cross diagonal artery stenosis. Balloon angioplasty initially was performed with 2.0 x 12 mm semicompliant balloon. This was followed by balloon angioplasty with 2.25 x 15 mm semicompliant balloon. Attempt at advancing stent was not successful. Given size of the vessel, decision was made to not perform arthrectomy. With balloon angioplasty, stenosis improved. Guidewire and guide catheter were pulled. Patient left the Stuntman in stable condition. Conclusions 1. Patent left main artery. Patent proximal LAD stent. Left circumflex artery is patent. Diagonal artery has critical stenosis that is heavily calcified. 2. 1st Diagonal was treated with a Balloon, and Balloon. 3. S/p balloon angioplasty of diagonal artery. Stent could not be advanced. Recommendations * Dual antiplatelet therapy with aspirin Plavix. * Outpatient cardiology follow-up in 2 weeks. Interventional RX Recommendation: PCI w/o planned CABG Diagnostic RX Recommendation: PCI w/o planned CABG Anticoagulation: Heparin Pressures Phase:Rest AO : 176 / 63 ( 90 ) @ 8:48:00 AM 112 / 67 ( 87 ) @ 8:49:00 AM 115 / 65 ( 88 ) @ 8:50:00 AM 99 / 64 ( 80 ) @ 9:00:00 AM Clinical Evaluation EBL: 5mL-10mL Procedural Details Procedure Consent Obtained. Admit Source: Out Patient. Pre-Procedure Time Out. Identified patient by full name and date of as verbalized by the patient/guarantor. Does the consent match the physician's order: Yes. Accurate & Complete Informed Consent: Yes. Inpatient/Outpatient History & Physical on Chart: Yes. If H&P is completed, is and addenduem needed: No; If yes, is the addendum complete: N/A. Visualize and Verify Site with Patient/Guarantor: N/A. Relevant Radiology Images available: N/A. The risks, benefits, and alternatives of sedation and/or procedure were discussed by physician. The patient agrees to continue. Procedure started. [facility] Clinical Fraility Score: 6: Moderately Frail. Stuntman Indications: Other. Chest Pain Symptom Assessment: Typical Angina Symptoms. Cardiovascular Instability: No. Correct patient, site and procedure confirmed by cath team. Current diagnosis: Staged PCI. PERRLA. 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 Lungs clear x 5 lobes. IV Site on Arrival: PICC in the right upper arm. IV Fluids: 0.9% NaCl at KVO. 0 mL infused prior to label maker. Pre Procedural Pulses: bilateral posterior tibial was Doppled. Pre Procedural Pulses: bilateral dorsalis pedis was Doppled. Pre Procedural Pulses: bilateral radial was 3+. Oxygen started at 3liters/min via nasal canula. left groin was prepped with chloroprep then draped in the usual sterile fashion. Physician notified. Baseline sample Acquired. HR: 65 BPM. Physician arrived. Physician scrubbed in. Immediate Pre-Procedure Time Out. Correct Patient: Yes; Correct Procedure: Yes; Correct Site: Yes; Correct Patient Position: Yes; Correct Supplies: Yes; Dried Flammable Prep: Yes; Blood Products Available: N/A;. Lidocaine 1% infiltrated to the left groin. Arterial access obtained with micropuncture set. 6 greenlandic XB 3.5 guide catheter was inserted over the wire. Guide seated in the LCS. Runthrough guidewire was advanced through the guide catheter to the Mid LAD. 2ND Runthrough guidewire was advanced through the guide catheter to lesion in the diaganol. LAD wire removed. Runthrough guidewire was advanced through the guide catheter to the Diagonal. 2.0 balloon inserted as crossing support. Guidewire advanced across lesion. 1st runthrough out. Inflation number : 1 A AB MINI TREK 2.00X12 RX BALLOON was prepped and advanced across the 1st Diag , then inflated to 8 SARA for 0:16 seconds. Inflation number: 2 The AB MINI TREK 2.00X12 RX BALLOON was reinflated across the 1st Diag, to 10 SARA for 0:15 seconds. Balloon out. Runthrough guidewire was advanced through the guide catheter to lesion in the diaganol. 1st runthrough out. 2nd runthrough inserted over the teleport crossing catheter. Guidewire advanced further down the Diagonal. 1st runthrough out. Teleport catheter out. Inflation number : 3 A AB TREK 2.25X15 RX BALLOON was prepped and advanced across the 1st Diag , then inflated to 6 SARA for 0:10 seconds. Inflation number: 4 The AB TREK 2.25X15 RX BALLOON was reinflated across the 1st Diag, to 8 SARA for 0:07 seconds. Inflation number: 5 The AB TREK 2.25X15 RX BALLOON was reinflated across the 1st Diag, to 8 SARA for 0:10 seconds. Results checked. Balloon out. Stent inserted; Unable to cross; Stent removed. Guideliner inserted. Stent inserted; Unable to cross; Stent; Guideliner; wire removed. Results checked. Guide removed over the wire. ACT drawn. Results 272 seconds. Therapeutic limits - pre-heparin administration 90-150 seconds and monitoring heparin during a vascular procedure >250 seconds. A Right femoral angiogram was performed to determine safe placement of closure device. A Suture was successful obtaining hemostatsis at the Left Femoral artery insertion site. Sheath(s) sutured into position with 2-0 silk and sterile 4x4's and Op-site applied over the site. No oozing or signs and symptoms of hematoma noted. Arterial sheath flushed and connected to tranducer and pressure bag with heparinized saline. Post Procedure: Pulses reassessed and unchanged. PERRLA. 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 No VTE prophylaxis required. Medication's Wasted: Lidocaine 1% = 10 ml , Versed = 1 mg , Heparin = 4000 units , Fentanyl = 50 mcg. Total IV fluids: 55 mL. Fluoro: 27:06. Contrast type used: Visipaque 320 mgI/mL, 500 mL bottle. [id number]. Post-op diagnosis: Balloon angioplasty of the diagional. Complications: None. Estimated blood loss: 5mL-10mL. Responsiveness - Normal response to verbal stimuli; alert and oriented, PERRLA. Airway - Unaffected, no intervention required; spontaneous ventilation. Circulation: W/N/L, pulses unchanged. Nausea/Vomiting: No. Procedure completed. Patient transferred by bed to 1st floor. Vital chart was stopped. Access Site Site: Left Femoral artery Sheath Size: 6 Fr Hemostasis Method: Suture Hemostasis Success: Successful Procedure Medications Start: 7:46 AM Stop: 7:46 AM Medication: Versed Amount: 1 mg Route: I.V. Start: 7:46 AM Stop: 7:46 AM Medication: Fentanyl Amount: 50 mcg Route: I.V. Start: 7:48 AM Stop: 7:48 AM Medication: Heparin Amount: 9000 units Route: I.V. Start: 8:10 AM Stop: 8:10 AM Medication: Heparin Amount: 1000 units Route: I.V. I, the attending physician, have reviewed and verified all procedure medications. Yes, all medications given per verbal order History/Risk Factors Hypertension: No Dyslipidemia: No Peripheral Arterial Disease (PAD): No Myocardial Infarction (OR): Yes Obesity: Yes Renal Disease: Yes Tobacco Use: Former Prior Interventions PCI: Yes CABG: No Valve Surgery: No Date of PCI: 04/15/2024 Report Signatures Finalized by Bassam Tony MD on 08/20/2024 02:40 PM
[2024-08-02] MEDS: diphenhydrAMINE 50 mg Capsule PO (06:41)
--- NOTE | 2024-08-02 07:29 | W.PM.OPSFHP ---
Same Day Surgery H&P Indication for Procedure/HPI DATE OF PROCEDURE: August 02, 2024 CHIEF COMPLAINT/INDICATIONFOR SURGICAL PROCEDURE: Staged PCI of diagonal artery PREOP DIAGNOSIS: Severe diagonal artery stenosis. Plan for staged PCI PLANNED PROCEDURE: Operation Date: 08/02/24 07:00 Proposed Procedures p Percutaneous Coronary Intervention - Staged PCI(Not Applicable) - Bassam Tony M.D 73-year-old man with past medical history of CAD had PCI of LAD done few months back. Plan was to perform PCI of diagonal artery as a staged procedure. He has dyspnea on exertion and chest pain Medications/Allergies* Home Medications ?Medication ?Instructions ?Recorded ?Confirmed ?Type losartan 25 mg tablet 12.5 mg PO DAILY 08/02/24 08/02/24 History Allergies/Adverse Reactions Allergy/AdvReac Type Severity Reaction Status Date / Time Penicillins Allergy ALGY-Hives Verified 08/01/24 08:42 Current Medications: Generic Name Dose Route Start Last Admin Trade Name Freq PRN Reason Stop Dose Admin Sodium Chloride 1,000 mls @ 50 mls/hr 08/02/24 06:13 08/02/24 06:41 Sodium Chloride 0.9% IV 08/03/24 02:12 Not Given .Q20H ONE Pertinent History/Comorbid Conditions* Medical History (Updated 07/10/24 @ 18:58 by Noble Day DPM) 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 BG well controlled with scheduled insulin -consistent carb diet as tolerated Parastomal hernia PETER (obstructive sleep apnea) History of bladder cancer Hx of intestinal obstruction Surgical History (Updated 10/04/23 @ 13:30 by Ivett Still MD) History of appendectomy History of cholecystectomy History of shoulder surgery History of urostomy History of esophageal hernia repair Family History (Updated 10/04/23 @ 13:31 by Ivett Still MD) Hypertension Mother Father Thyroid disease Mother Social History Smoking and tobacco/nicotine status: former use of tobacco/nicotine Quit status (tobacco/nicotine): has quit using Year quit tobacco: 2009 Former quit date comment: previously 4 ppd Alcohol intake: former Substance/Drug Use: never Lives independently: Yes Household members: other Details: brother Marital status: / Number of children: 1 Number of grandchildren: 2 service: No Current occupational status: retired and 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 gender identity: Male Special jose carlos needs: No Agree to transfusion: Yes Pertinent Exam Findings alert, oriented x 3, clear to auscultation bilaterally and regular rate & rhythm Conscious Sedation Assessment PATIENT ASSESSED PRIOR TO SEDATION, WITH NO CHANGE NOTED: Yes AIRWAY EVAL/ANESTHESIA PLAN: normal airway, ASA III, Local Anesthesia, Risks, benefits & alternatives of sedation and/or procedure discussed and Patient agrees to continue as planned ADDITIONAL INFORMATION: Moderate sedation Recommendations Risks and benefits of procedure reviewed and Patient/family agree to proceed Surgery/Procedure today (Staged PCI of diagonal artery) Coding Level of Care Code Acute Code for [facility] [place]
--- NOTE | 2024-08-02 08:48 | PM.PROC ---
Procedure Note: Date of procedure: 08/02/24 Pre-procedure diagnosis: Staged PCI of diagonal artery Post-procedure diagnosis: other (s/p Balloon angioplasty of diagonal artery) Procedure: S/p balloon angioplasty of diagonal artery Continue aspirin and plavix Performing Provider: Bassam Tony Estimated blood loss (mL): 10 Complications: None Condition: stable Disposition: floor Coding [facility] Care [facility]
--- NOTE | 2024-08-02 10:02 | PC.NURSE ---
Patient received to the floor ~0905 from pit laborer via bed. Patient is s/p [facility] with angioplasty via left femoral artery. Sheath and pressure bag remain in place currently. No s/s of bleeding or hematoma formation observed. Instructed patient on site care and restrictions. Patient and family both verbalized complete understanding. patient denies pain or needs. No distress observed. Will continue to monitor.
--- NOTE | 2024-08-02 11:02 | P.PN_ITS ---
<Statement entered by Bassam Tony M.D - 08/04/24 09:18> Patient was cared for in conjunction with an advanced practice practitioner.? I reviewed the chart and all pertinent data including imaging, telemetry, and laboratory results.? I discussed the patient in detail with the advanced practice practitioner.? Please see? their note for complete progress note, testing results and agreed upon plan of care for the patient. Subjective Subjective: Underwent staged intervention -balloon angioplasty of the diagonal artery this morning. Right femoral access, sheath in place. Vitals/I&O/Wt Last Vital Signs Temp 97.8 F 08/02/24 06:22 Pulse 61 08/02/24 09:45 Resp 17 08/02/24 09:45 BP 136/69 08/02/24 09:45 Pulse Ox 96 08/02/24 09:45 O2 Del Method Room Air 08/02/24 06:22 Weight last 48 hrs Weight 225 lb Physical Exam Const: COMMON NORMALS: no acute distress and patient oriented x3 GENERAL APPEARANCE: cooperative ORIENTATION/CONSCIOUSNESS: Yes awake, Yes oriented to person, Yes oriented to place and Yes oriented to time Chest: COMMONS NORMALS: normal inspection of the chest and normal palpation of entire chest wall CHEST: Yes Symmetrical chest wall rise Resp: COMMON NORMALS: normal respiratory effort, No retractions, No use of accessory muscles and clear to auscultation bilaterally AUSCULTATION: clear to auscultation bilaterally Cardio: COMMON NORMALS: regular rate, regular rhythm, S1 normal heart sound present, S2 normal heart sound present, No gallops present (Cardio), No clicks present (Cardio), No murmurs present (Cardio) and No rub (Cardio) RATE: regular rate RHYTHM: regular rhythm HEART SOUNDS: S1 normal heart sound present and S2 normal heart sound present PERIPHERAL PULSES: radial pulses present positive right 2+ and femoral pulses present positive right 2+ Neuro: COMMON NORMALS: patient oriented x3 and moves all extremities SE NSORIUM/ORIENTATION: Yes oriented to person, Yes oriented to place and Yes oriented to time Skin: WOUNDS: Yes surgical site (no hematoma palpable) Details: no odor A&P Assessment and plan (1) Coronary artery disease: (2) Hypertension: (3) DM type 2 (diabetes mellitus, type 2): (4) 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 Restarting his home dose of losartan, blood pressures 130 systolic. Creatinine yesterday 1.3, will monitor with morning labs. 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
[2024-08-02 11:31] LABS: Glucose Point of Care 241 mg/dL (70-110)
[2024-08-02] MEDS: losartan 50 mg Tablet 12.5 MG PO (12:08)
[2024-08-02] MEDS: insulin lispro 100 unit/1 mL SUBCUT (12:08)
[2024-08-02 12:25] LABS: Partial Thromboplastin Time 44.6 SECONDS (23.9-36.7)
--- NOTE | 2024-08-02 13:27 | PC.NURSE ---
Initiated sheath removal per protocol at 1301. Hemostasis achieved immediately. Maintained pressure to site for 20min. No s/s of bleeding or hematoma formation observed. covered with 2x2 ang bio-occlusive dressing. Instructed patient on site care and restrictions. Patient verbalized complete understanding. VS wnl. Will continue to monitor.
[2024-08-02] MEDS: ropinirole 2 mg Tablet 8 MG PO (15:08)
[2024-08-02 16:33] LABS: Glucose Point of Care 153 mg/dL (70-110)
[2024-08-02] MEDS: sodium chloride 0.9% 1,000 ML 100 ML IV (18:23)
[2024-08-02] MEDS: atorvastatin 40 mg Tablet PO (20:30)
[2024-08-02 20:34] LABS: Glucose Point of Care 270 mg/dL (70-110)
[2024-08-03 00:16] VITALS: BP 145/79; PULSE 91; RESP 16; TEMP 36.9; O2SAT 92
[2024-08-03 04:19] LABS: Basophils % 0.8 %; Eosinophils # 0.3 10^3/uL (0.0-0.8); Eosinophils % 5.4 %; Hematocrit 35.9 % (37-53); Lymphocytes # 1.2 10^3/uL (0.8-4.8); Lymphocytes % 23.4 %; Mean Corpuscular HGB Conc 32.3 g/dL (30-55); Mean Corpuscular Volume 89.8 fl (82-101); Mean Platelet Volume 10.5 fL (7.4-10.4); Monocytes # 0.5 10^3/uL (0.2-0.9); Monocytes % 10.8 %; Neutrophils # 2.95 10^3/uL (1.8-7.7); Neutrophils % 59.2 %; Nucleated Red Blood Cells % 0 %; Platelet Count 139 10^3/cmm (157-399); White Blood Count 4.99 10^3/uL (3.29-11.43)
[2024-08-03 04:39] LABS: Blood Urea Nitrogen 19 mg/dL (8-23); Carbon Dioxide 22 mmol/L (22-29); Chloride 104 mmol/L (98-107); Creatinine Clr Calc Pharmacy 67.7624; Glucose 328 mg/dL (65-115); Osmolality Calculated 299 mOsm/kg (285-295); Sodium 137 mmol/L (136-145)
[2024-08-03] MEDS: sodium chloride 0.9% 1,000 ML 100 ML IV (04:39)
[2024-08-03 04:45] VITALS: BP 139/73; PULSE 72; RESP 19; TEMP 36.7; O2SAT 96
[2024-08-03 05:47] LABS: Glucose Point of Care 262 mg/dL (70-110)
[2024-08-03] MEDS: ropinirole 2 mg Tablet 8 MG PO (08:05)
[2024-08-03] MEDS: clopidogrel 75 mg Tablet PO (08:05)
[2024-08-03] MEDS: insulin lispro 100 unit/1 mL SUBCUT (08:06)
[2024-08-03] MEDS: aspirin 81 mg EC Tablet PO (08:06)
[2024-08-03 08:10] VITALS: BP 139/75
[2024-08-03] MEDS: losartan 50 mg Tablet 12.5 MG PO (08:10)
[2024-08-03 08:35] VITALS: BP 157/78; PULSE 86; RESP 20; TEMP 36.8; O2SAT 96
--- NOTE | 2024-08-03 09:14 | P.DS_ITS ---
<Statement entered by Bassam Tony M.D - 08/04/24 09:23> Patient was cared for in conjunction with an advanced practice practitioner.? I reviewed the chart and all pertinent data including imaging, telemetry, and laboratory results.? I discussed the patient in detail with the advanced practice practitioner.? Please see? their note for discharge summary, testing results and agreed upon plan of care for the patient. 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 Plan was to perform PCI of diagonal artery as a staged procedure. He has dyspnea on exertion and chest pain Hospital Course Hospital Course He was brought in for staged PCI of the diagonal, underwent balloon angioplasty of diagonal yesterday. He has done well overnight, no chest pain noted, renal function is normal. No complications with left femoral cath site. Plan to discharge home today. Follow-up with cardiology PARKING MANAGER in 7 to 10 days. Continue aspirin and Plavix. Physical Exam Const: COMMON NORMALS: no acute distress and patient oriented x3 GENERAL APPEARANCE: cooperative ORIENTATION/CONSCIOUSNESS: Yes awake, Yes oriented to person, Yes oriented to place and Yes oriented to time Chest: COMMONS NORMALS: normal inspection of the chest and normal palpation of entire chest wall CHEST: Yes Symmetrical chest wall rise Resp: COMMON NORMALS: normal respiratory effort, No retractions, No use of accessory muscles and clear to auscultation bilaterally AUSCULTATION: clear to auscultation bilaterally Cardio: COMMON NORMALS: regular rate, regular rhythm, S1 normal heart sound present, S2 normal heart sound present, No gallops present (Cardio), No clicks present (Cardio), No murmurs present (Cardio) and No rub (Cardio) RATE: regular rate RHYTHM: regular rhythm HEART SOUNDS: S1 normal heart sound present and S2 normal heart sound present PERIPHERAL PULSES: radial pulses present positive right 2+ and femoral pulses present positive right 2+ Neuro: COMMON NORMALS: patient oriented x3 and moves all extremities SENSORIUM/ORIENTATION: Yes oriented to person, Yes oriented to place and Yes oriented to time Skin: WOUNDS: Yes surgical site (no hematoma palpable) Details: no odor Discharge Data Studies Completed and Pending Pending at discharge Category Date Time Status TICKET PULLER request for service Routine Exams 08/02/24 06:12 Ordered Laboratory Results WBC 4.99 10^3/uL (3.29-11.43) 08/03/24 03:45 RBC 4.00 10^6/uL (3.85-5.65) 08/03/24 03:45 Hgb 11.60 g/dL (11.27-16.99) 08/03/24 03:45 Hct 35.9 % (37-53) L 08/03/24 03:45 MCV 89.8 fl (82-101) 08/03/24 03:45 MCH 29.0 pg (27-33) 08/03/24 03:45 MCHC 32.3 g/dL (30-55) 08/03/24 03:45 RDW 13.0 % (12.1-15.1) 08/03/24 03:45 Plt Count 139 10^3/cmm (157-399) L 08/03/24 03:45 MPV 10.5 fL (7.4-10.4) H 08/03/24 03:45 Neut % (Auto) 59.2 % 08/03/24 03:45 Lymph % (Auto) 23.4 % 08/03/24 03:45 [place] % (Auto) 10.8 % 08/03/24 03:45 Eos % (Auto) 5.4 % 08/03/24 03:45 Baso % (Auto) 0.8 % 08/03/24 03:45 Neut # (Auto) 2.95 10^3/uL (1.8-7.7) 08/03/24 03:45 Lymph # (Auto) 1.2 10^3/uL (0.8-4.8) 08/03/24 03:45 Childress # (Auto) 0.5 10^3/uL (0.2-0.9) 08/03/24 03:45 Eos # (Auto) 0.3 10^3/uL (0.0-0.8) 08/03/24 03:45 Baso # (Auto) 0.0 10^3/uL (0.0-0.1) 08/03/24 03:45 Nucleated RBC % (auto) 0 % 08/03/24 03:45 Nucleated RBCs # 0.0 /100WBC 08/03/24 03:45 APTT 44.6 SECONDS (23.9-36.7) H 08/02/24 11:58 Sodium 137 mmol/L (136-145) 08/03/24 03:45 Potassium 4.0 mmol/L (3.5-5.1) 08/03/24 03:45 Chloride 104 mmol/L (98-107) 08/03/24 03:45 Carbon Dioxide 22 mmol/L (22-29) 08/03/24 03:45 Anion Gap 15.0 (5-19) 08/03/24 03:45 BUN 19 mg/dL (8-23) 08/03/24 03:45 Creatinine 1.2 mg/dL (0.7-1.2) 08/03/24 03:45 GFR Calculation Not Reportable 08/03/24 03:45 Glucose 328 mg/dL (65-115) H 08/03/24 03:45 POC Glucose 262 mg/dL (70-110) H 08/03/24 05:21 Calculated Osmolality 299 mOsm/kg (285-295) H 08/03/24 03:45 Calcium 8.0 mg/dL (8.5-10.5) L 08/03/24 03:45 Vitals Last Vital Signs Temp 98.2 F 08/03/24 08:35 Pulse 86 08/03/24 08:35 Resp 20 H 08/03/24 08:35 BP 157/78 08/03/24 08:35 Pulse Ox 96 08/03/24 08:35 O2 Del Method Room Air 08/03/24 08:35 Discharge Plan Discharge Patient Disposition: Home Prescriptions: Continued insulin aspart U-100 [Novolog FlexPen U-100 Insulin] 100 unit/mL (3 mL) insulin pen See Rx Instructions .ROUTE .COMPLEX MDD 30 Qty: 15 0RF Rx Instructions: Inject, subcut, 3 times daily, after meals, based on sliding scale provided (DME) SELDOVIA boot See Rx Instructions .Route .MEDSUPPLY Qty: 1 0RF Rx Instructions: As directed Levemir FlexTouch U100 Insulin 100 unit/mL (3 mL) insulin pen 30 unit SUBCUT BID Qty: 15 0RF gabapentin 300 mg capsule 300 mg PO TID Qty: 90 0RF mupirocin 2 % ointment 1 applic topical BID Qty: 15 0RF albuterol sulfate 90 mcg/actuation HFA aerosol inhaler 2 inh INHALATION Q4H PRN (Reason: shortness of breath or wheezing) Qty: 18 11RF (DME) OneTouch Ultra Test Strip See Rx Instructions .Route Qty: 50 2RF Rx Instructions: As directed aspirin 81 mg tablet,delayed release (DR/EC) 81 mg PO DAILY 30 Days Qty: 30 0RF clopidogrel 75 mg tablet 75 mg PO DAILY 30 Days Qty: 30 0RF ropinirole 4 mg tablet 8 mg PO BID Qty: 120 0RF famotidine 40 mg tablet 40 mg PO BID Qty: 60 2RF losartan 25 mg tablet 12.5 mg PO DAILY Rx Instructions: take 1/2 tablet BY MOUTH EVERY DAY Discharge Orders: Discharge Order (Routine); Ordered 08/03/24 Ordered By: Gaby Plummer Referrals: Gladys Isaac NP [Nurse Practitioner, Cardiology] - 7-10 days Diet: Advance as tolerated Activity: Increase activity as tolerated Patient Instructions: Coronary Angioplasty (DC) Activity Restrictions/Additional Instructions: No lifting over 5 pounds for the next 4 days. 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
--- NOTE | 2024-08-03 09:28 | PC.NURSE ---
PICC line flushed with saline and heparin.
[2024-08-03 09:29] VITALS: BP 133/80; PULSE 96; RESP 14; TEMP 36.2; O2SAT 97
--- NOTE | 2024-08-03 10:32 | PC.NURSE ---
Patient's mentioned that the discharging VISCOSE DEPARTMENT WORKER stated that the patient needs to be on cholesterol medicine and will need a prescription. Contacted [facility] and conveyed a request for Gaby DUVAL to send prescription to [facility] pharmacy. Patient & made aware.
== END 2024-08-03 10:30 | disposition home health service (06) ==
LOC: CCL 06:23 → CSU 20:48
PROVIDERS: Nurse Practitioner Family; PCP Family Medicine; Visit Provider Internal Medicine
DX: I25.10 Atherosclerotic heart disease of native coronary artery without angina pectoris (principal); I25.84 Coronary atherosclerosis due to calcified coronary lesion; I25.2 Old myocardial infarction; Z87.891 Personal history of nicotine dependence; E10.22 Type 1 diabetes mellitus with diabetic chronic kidney disease; I12.9 Hypertensive chronic kidney disease with stage 1 through stage 4 chronic kidney disease, or unspecified chronic kidney disease; N18.2 Chronic kidney disease, stage 2 (mild); Z79.4 Long term (current) use of insulin; Z79.82 Long term (current) use of aspirin
CPT/HCPCS: 36415; 36416; 36592; 80048; 82962; 85025; 85347; 85730; 92920; 96372; 96374; 99152; 99153; C1725; C1769; C1874; C1887; C1894; J1644; J1815; J2250; J3010; J3490; J7030; J9999; Q0163; Q9967

== ENCOUNTER → 2024-08-09 08:56 | Outpatient (BNVA) | payer MEDICARE, MEDICAID, SELFPAY | PROVIDERS: PCP Family Medicine; Visit Provider Podiatrist Foot & Ankle Surgery | DX: I25.10 Atherosclerotic heart disease of native coronary artery without angina pectoris (principal); I12.9 Hypertensive chronic kidney disease with stage 1 through stage 4 chronic kidney disease, or unspecified chronic kidney disease; E11.22 Type 2 diabetes mellitus with diabetic chronic kidney disease; N18.2 Chronic kidney disease, stage 2 (mild); Z79.4 Long term (current) use of insulin; E78.5 Hyperlipidemia, unspecified; G47.33 Obstructive sleep apnea (adult) (pediatric); L97.514 Non-pressure chronic ulcer of other part of right foot with necrosis of bone; Z79.82 Long term (current) use of aspirin; Z98.61 Coronary angioplasty status; Z86.73 Personal history of transient ischemic attack (TIA), and cerebral infarction without residual deficits; Z87.891 Personal history of nicotine dependence; I25.2 Old myocardial infarction; E11.621 Type 2 diabetes mellitus with foot ulcer; E11.610 Type 2 diabetes mellitus with diabetic neuropathic arthropathy; Q66.81 Congenital vertical talus deformity, right foot | CPT/HCPCS: 11043; 99214 ==

== ENCOUNTER → 2024-08-16 08:44 | Outpatient (BNVA) | payer MEDICARE, MEDICAID, SELFPAY | PROVIDERS: PCP Family Medicine; Visit Provider Podiatrist Foot & Ankle Surgery | DX: E11.610 Type 2 diabetes mellitus with diabetic neuropathic arthropathy (principal); L97.514 Non-pressure chronic ulcer of other part of right foot with necrosis of bone; Q66.81 Congenital vertical talus deformity, right foot; L97.512 Non-pressure chronic ulcer of other part of right foot with fat layer exposed; E11.621 Type 2 diabetes mellitus with foot ulcer; Z79.4 Long term (current) use of insulin | CPT/HCPCS: 99214 ==

== ENCOUNTER → 2024-08-23 09:40 | Outpatient (BNVA) | payer MEDICARE, MEDICAID, SELFPAY | PROVIDERS: PCP Family Medicine; Visit Provider Podiatrist Foot & Ankle Surgery | DX: B35.1 Tinea unguium (principal); E11.610 Type 2 diabetes mellitus with diabetic neuropathic arthropathy; E11.621 Type 2 diabetes mellitus with foot ulcer; L97.514 Non-pressure chronic ulcer of other part of right foot with necrosis of bone; Q66.81 Congenital vertical talus deformity, right foot; L97.512 Non-pressure chronic ulcer of other part of right foot with fat layer exposed; Z79.4 Long term (current) use of insulin | CPT/HCPCS: 99214 ==

== ENCOUNTER → 2024-08-28 08:46 | Outpatient (BNVA) | payer MEDICARE, MEDICAID, SELFPAY | PROVIDERS: PCP Family Medicine; Visit Provider Nurse Practitioner | DX: M70.41 Prepatellar bursitis, right knee (principal); M17.11 Unilateral primary osteoarthritis, right knee; L97.514 Non-pressure chronic ulcer of other part of right foot with necrosis of bone; E11.610 Type 2 diabetes mellitus with diabetic neuropathic arthropathy | CPT/HCPCS: 73560; 73565; 99214 ==

== ENCOUNTER → 2024-08-30 11:00 | Outpatient (BNVA) | payer MEDICARE, MEDICAID, SELFPAY | PROVIDERS: PCP Family Medicine; Visit Provider Podiatrist Foot & Ankle Surgery | DX: E11.610 Type 2 diabetes mellitus with diabetic neuropathic arthropathy (principal); E11.621 Type 2 diabetes mellitus with foot ulcer; L97.514 Non-pressure chronic ulcer of other part of right foot with necrosis of bone; Q66.81 Congenital vertical talus deformity, right foot; L97.512 Non-pressure chronic ulcer of other part of right foot with fat layer exposed; Z79.4 Long term (current) use of insulin | CPT/HCPCS: 99214 ==

== ENCOUNTER 2024-09-04 10:55 | Observation (INO) | payer MEDICARE, MEDICAID, SELFPAY ==
[2024-09-04] VITALS (14 sets, daily range): BP systolic 107–139; BP diastolic 65–80; PULSE 75–97; RESP 16–18; TEMP 36.4–37; O2SAT 91–98
--- NOTE | 2024-09-04 11:08 | CT_ITS ---
WS: [id number] CT HEAD TECHNIQUE: Noncontrast CT of the head obtained from the skullbase to the vertex. CLINICAL INFORMATION: Left hand numbness COMPARISON: 06/12/2024 DLP: [address] scans at [facility] use at least one of these dose optimization techniques: automated exposure control; mA and/or kV adjustment per patient size (includes targeted exams where dose is matched to clinical indication); or iterative reconstruction. FINDINGS: No evidence of intracranial hemorrhage or mass effect. Ventricular system and basal cisterns are patent. Moderate small vessel changes with moderate parenchymal volume loss. No extra-axial fluid collections. No evidence of mass or mass effect. Intracranial vascular calcification. Paranasal sinuses and mastoid air cells are well aerated. .Normal visualized soft tissues. CT/CT head thrombolytic 73600 IMPRESSION: 1. No evidence of intracranial hemorrhage or mass effect. 2. Moderate small vessel changes with moderate parenchymal volume loss. 3. Intracranial vascular calcification. 4. No acute intracranial findings. Notified Jordy Arenas DO at 09/04/2024 11:25 AM.
[2024-09-04 11:27] LABS: Glucose Point of Care 525 mg/dL (70-110)
--- NOTE | 2024-09-04 11:33 | ED_ITS ---
HPI - Dizziness General: Chief Complaint: Dizziness Stated Complaint: Dizzy Time Seen by Provider: 09/04/24 11:07 Related Data Previous Rx's ?Medication ?Instructions ?Recorded insulin aspart U-100 100 unit/mL See Rx Instructions . Route 05/01/24 (3 mL) subcutaneous pen (Novolog .COMPLEX #15 mL FlexPen U-100 Insulin aspart) gabapentin 300 mg capsule 300 mg PO TID #90 caps 05/22 insulin detemir U-100 100 unit/mL 30 unit (0.3 mL) SUB CUT BID #15 mL 05/22/24 (3 mL) subcutaneous pen (Levemir FlexTouch U-100 Insulin) albuterol sulfate 90 mcg/actuation 2 inh inhalation Q4 H PRN shortness 06/02/24 aerosol inhaler of breath or wheezing #18 gr ams blood sugar diagnostic (OneTouch #50 ea 06/12/24 Ultra Test strips) mupirocin 2 % topical ointment 1 applic topical BID #1 5 grams 07/17/24 atorvastatin 40 mg tablet (Lipitor) 40 mg PO DAILY #90 tabs 08/03/24 famotidine 40 mg tablet 40 mg PO BID #60 tabs blood-glucose sensor (FreeStyle #2 ea 08/08/24 Jenae 3 Sensor device) aspirin 81 mg tablet,delayed See Rx Instructions .Rout e 08/18/24 release .COMPLEX #30 tabs NONDALTON boot #1 ea 08/21/24 clopidogrel 75 mg tablet 75 mg PO DAILY 30 days #90 t abs 08/28/24 losartan 25 mg tablet 12.5 mg (1/2 x 25 mg) PO PANCHO LY #30 09/01/24 tabs ropinirole 4 mg tablet 8 mg (2 x 4 mg) PO BID #180 tabs 09/01/24 Allergies Allergy/AdvReac Type Severity Reaction Status Date / Time Penicillins Allergy ALGY-Hives Verified 09/04/24 10:26 [facility] ED [facility]: Medical History Prepatellar bursitis, right knee Osteoarthritis of right knee Acute pain of right knee 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 BG well controlled with scheduled insulin -consistent carb diet as tolerated Parastomal hernia PETER (obstructive sleep apnea) History of bladder cancer Hx of intestinal obstruction Surgical History History of appendectomy History of cholecystectomy History of shoulder surgery History of urostomy History of esophageal hernia repair Family History Mother Thyroid disease Hypertension Father Hypertension Social History Smoking and tobacco/nicotine status: never used tobacco/nicotine Quit status (tobacco/nicotine): has quit using Year quit tobacco: 2009 Former quit date comment: previously 4 ppd Alcohol intake: former Substance/Drug Use: never Lives independently: Yes Household members: other Details: brother Marital status: / Number of children: 1 Number of grandchildren: 2 service: No Current occupational status: retired and 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 No evidence of intracranial hemorrhage or mass effect. 2. Moderate small vessel changes with moderate parenchymal volume loss. 3. Intracranial vascular calcification. 4. No acute intracranial findings. Notified Jordy Arenas DO at 09/04/2024 11:25 AM. Laboratory Results POC Glucose 525 mg/dL (70-110) H* 09/04/24 11:13 Discharge Plan Discharge Condition: Stable Prescriptions: No Action insulin aspart U-100 [Novolog FlexPen U-100 Insulin] 100 unit/mL (3 mL) insulin pen See Rx Instructions .ROUTE .COMPLEX MDD 30 Qty: 15 0RF Rx Instructions: Inject, subcut, 3 times daily, after meals, based on sliding scale provided (DME) FreeStyle Jenae 3 Sensor Device See Rx Instructions .MEDSUPPLY Qty: 2 12RF Rx Instructions: Change every 14 days; Use as directed to check blood sugar Levemir FlexTouch U100 Insulin 100 unit/mL (3 mL) insulin pen 30 unit SUBCUT BID Qty: 15 0RF gabapentin 300 mg capsule 300 mg PO TID Qty: 90 0RF mupirocin 2 % ointment 1 applic topical BID Qty: 15 0RF albuterol sulfate 90 mcg/actuation HFA aerosol inhaler 2 inh INHALATION Q4H PRN (Reason: shortness of breath or wheezing) Qty: 18 11RF (DME) OneTouch Ultra Test Strip See Rx Instructions .Route Qty: 50 2RF Rx Instructions: As directed famotidine 40 mg tablet 40 mg PO BID Qty: 60 2RF atorvastatin [Lipitor] 40 mg tablet 40 mg PO DAILY Qty: 90 1RF aspirin 81 mg tablet,delayed release (DR/EC) See Rx Instructions .ROUTE .COMPLEX Qty: 30 1RF Dose Instruction: TAKE 1 TABLET BY MOUTH EVERY DAY Rx Instructions: TAKE 1 TABLET BY MOUTH EVERY DAY (DME) JAKI lockwood See Rx Instructions .Route .MEDSUPPLY Qty: 1 0RF Rx Instructions: As directed by [place] clopidogrel 75 mg tablet 75 mg PO DAILY 30 Days Qty: 90 1RF ropinirole 4 mg tablet 8 mg PO BID Qty: 180 0RF losartan 25 mg tablet 12.5 mg PO DAILY Qty: 30 1RF Rx Instructions: take 1/2 tablet BY MOUTH EVERY DAY Referrals: Ivett Still MD [Primary Care Provider, Family Practice] Print Language: Greenlandic Coding Level of Care Code ED Wash Box Operator for Osiris Ansari
--- NOTE | 2024-09-04 11:34 | ED_ITS ---
HPI - Neuro Symptoms/Deficit 2 General: Chief Complaint: Dizziness Stated Complaint: Dizzy Time Seen by Provider: 09/04/24 11:07 History of Present Illness: 73-year-old male presents to the emergen cy room states he is having dizziness and left upper extremity numbness. Last known well was 9:00 last night the numbness is persistent through this morning. He fell about 4 months ago and had an intracranial bleed he has had dizziness continuously since then. Initial blood sugar is 500. 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 No chest pain. His initial stroke score is 1 Associated symptoms: Deny chest pain Related Data Home Medications ?Medication ?Instructions ?Recorded ?Confirmed aspirin 81 mg tablet,delayed 81 mg PO DAILY 09/04/24 0 09/04/24 release gabapentin 600 mg tablet 600 mg PO Q8H 09/04/2409/04 insulin glargine 100 unit/mL (3 24 unit SUBCUT BID 09/04/24 mL) subcutaneous pen (Lantus Solostar U-100 Insulin) Previous Rx's ?Medication ?Instructions ?Recorded insulin aspart U-100 100 unit/mL See Rx Instructions . Route 05/01/24 (3 mL) subcutaneous pen (Novolog .COMPLEX #15 mL FlexPen U-100 Insulin aspart) albuterol sulfate 90 mcg/actuation 2 inh inhalation Q4 H PRN shortness 06/02/24 aerosol inhaler of breath or wheezing #18 gr ams blood sugar diagnostic (OneTouch #50 ea 06/12/24 Ultra Test strips) mupirocin 2 % topical ointment 1 applic topical BID #1 5 grams 07/17/24 atorvastatin 40 mg tablet (Lipitor) 40 mg PO DAILY #90 tabs 08/03/24 famotidine 40 mg tablet 40 mg PO BID #60 tabs blood-glucose sensor (FreeStyle #2 ea 08/08/24 Jenae 3 Sensor device) PRAIRIE BAND boot #1 ea 08/21/24 clopidogrel 75 mg tablet 75 mg PO DAILY 30 days #90 t abs 08/28/24 losartan 25 mg tablet 12.5 mg (1/2 x 25 mg) PO PANCHO LY #30 09/01/24 tabs ropinirole 4 mg tablet 8 mg (2 x 4 mg) PO BID #180 tabs 09/01/24 Allergies Allergy/AdvReac Type Severity Reaction Status Date / Time Penicillins Allergy ALGY-Hives Verified 09/04/24 12:45 Review of Systems 2 Const: Denies: fever(s) or chills Card: Denies: chest pain Resp: Denies: dyspnea GI: Denies: abdominal pain : Denies: dysuria, urinary frequency or urinary urgency Musc: Denies: neck pain or back pain Skin/Breast: Denies: rash PFSH ED 2 PFSH: Medical History Prepatellar bursitis, right knee Osteoarthritis of right knee Acute pain of right knee 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 BG well controlled with scheduled insulin -consistent carb diet as tolerated Parastomal hernia PETER (obstructive sleep apnea) History of bladder cancer Hx of intestinal obstruction Surgical History History of appendectomy History of cholecystectomy History of shoulder surgery History of urostomy History of esophageal hernia repair Family History Mother Thyroid disease Hypertension Father Hypertension Social History Smoking and tobacco/nicotine status: never used tobacco/nicotine Quit status (tobacco/nicotine): has quit using Year quit tobacco: 2009 Former quit date comment: previously 4 ppd Alcohol intake: former Substance/Drug Use: never Lives independently: Yes Household members: other Details: brother Marital status: / Number of children: 1 Number of grandchildren: 2 service: No Current occupational status: 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 and 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 gender identity: Male Special jose carlos needs: No Agree to transfusion: Yes NIH stroke score 2 NIHSS: Level Of Consciousness - 1a: 0 Level Of Consciousness Questions - 1b: Both Correct Level Of Consciousness Commands - 1c: Both Correct Best Gaze - 2: Normal Visual Rushing - 3: No Visual Loss Facial Palsy - 4: N ormal Motor Arm Right - 5: No Drift Motor Arm Left - 5: No Drift Motor Leg Right - 6: No Drift Motor Leg Left - 6: No Drift Limb Ataxia - 7: A bsent Sensory - 8: Mild To Moderate Loss Best Language - 9: No Aphasia Dysarthia - 10: Normal Extinction And Inattention - 11: 0 Score: Total Score: 1 Physical Exam 2 Const: GENERAL APPEARANCE: cooperative ORIENTATION/CONSCIOUSNESS: Yes awake, Yes oriented to person, Yes oriented to place and Yes oriented to time HENMT: COMMON NORMALS: normocephalic, atraumatic and hearing grossly normal bilaterally HEAD & SCALP: normocephalic and atraumatic Resp: COMMON NORMALS: normal respiratory effort, No retractions, No use of accessory muscles and clear to auscultation bilaterally AUSCULTATION: clear to auscultation bilaterally Cardio: COMMON NORMALS: regular rate, regular rhythm and No murmurs present (Cardio) RATE: regular rate RHYTHM: regular rhythm GI: COMMON NORMALS: Soft to palpation and No hepatosplenomegaly present A USCULTATION: Yes normoactive bowel sounds PALPATION: Yes Soft to palpation, No Tenderness to palpation present (GI), No Guarding due to palpation present (GI) and Yes No hepatosplenomegaly present Extremity: COMMON NORMALS: normal to inspection, capillary refill normal, no clubbing, cyanosis or edema, no calf tenderness and no pedal edema Neuro: SENSORIUM/ORIENTATION: Yes oriented to person, Yes oriented to place and Yes oriented to time Skin: COMMON NORMALS: no rashes or lesions noted GENERAL SKIN EXAM: no rashes or lesions noted Course 2 Vital Signs: Vital signs: Vital Signs Temperature 98.4 F 09/04/24 11:02 Pulse Rate 82 09/04/24 15:40 Respiratory Rate 16 09/04/24 15:40 Blood Pressure 136/80 09/04/24 15:40 Pulse Oximetry 92 09/04/24 15:40 Oxygen Delivery Me thod Room Air 09/04/24 16:06 MDM - Neuro Symptoms/Deficit Medical Decision Making Cystitis. He has persistence numbness in his hand. No other focal symptoms. Started on IV antibiotics. Placed on observation for now. Cultures done discussed with hospitalist orders written Medical Records I reviewed the patient's medical records. Lab Data I reviewed the patient's lab results. 09/04/24 11:37 09/04/24 15:[address] 09/04/24 11:08 IMPRESSION: 1. No evidence of intracranial hemorrhage or mass effect. 2. Moderate small vessel changes with moderate parenchymal volume loss. 3. Intracranial vascular calcification. 4. No acute intracranial findings. Notified Jordy Arenas DO at 09/04/2024 11:25 AM. Laboratory Results WBC 5.73 10^3/uL (3.29-11.43) 09/04/24 11:37 RBC 4.20 10^6/uL (3.85-5.65) 09/04/24 11:37 Hgb 12.30 g/dL (11.27-16.99) 09/04/24 11:37 Hct 36.2 % (37-53) L 09/04/24 11:37 MCV 86.2 fl (82-101) 09/04/24 11:37 MCH 29.3 pg (27-33) 09/04/24 11:37 MCHC 34.0 g/dL (30-55) 09/04/24 11:37 RDW 13.9 % (12.1-15.1) 09/04/24 11:37 Plt Count 119 10^3/cmm (157-399) L 09/04/24 11:37 MPV 10.3 fL (7.4-10.4) 09/04/24 11:37 Neut % (Auto) 58.9 % 09/04/24 11:37 Lymph % (Auto) 23.7 % 09/04/24 11:37 Caroline % (Auto) 15.2 % 09/04/24 11:37 Eos % (Auto) 1.0 % 09/04/24 11:37 Baso % (Auto) 0.9 % 09/04/24 11:37 Neut # (Auto) 3.37 10^3/uL (1.8-7.7) 09/04/24 11:37 Lymph # (Auto) 1.4 10^3/uL (0.8-4.8) 09/04/24 11:37 Caroline # (Auto) 0.9 10^3/uL (0.2-0.9) 09/04/24 11:37 Eos # (Auto) 0.1 10^3/uL (0.0-0.8) 09/04/24 11:37 Baso # (Auto) 0.1 10^3/uL (0.0-0.1) 09/04/24 11:37 Nucleated RBC % (auto) 0 % 09/04/24 11:37 Nucleated RBCs # 0.0 /100WBC 09/04/24 11:37 PT 15.70 SECONDS (12.1-14.9) H 09/04/24 11:37 INR 1.17 (0.8-1.2) 09/04/24 11:37 APTT 29.7 SECONDS (23.9-36.7) 09/04/24 11:37 Sodium 136 mmol/L (136-145) 09/04/24 15:29 Potassium 4.1 mmol/L (3.5-5.1) 09/04/24 15:29 Chloride 101 mmol/L (98-107) 09/04/24 15:29 Carbon Dioxide 23 mmol/L (22-29) 09/04/24 15:29 Anion Gap 16.1 (5-19) 09/04/24 15:29 BUN 30 mg/dL (8-23) H 09/04/24 15:29 Creatinine 1.2 mg/dL (0.7-1.2) 09/04/24 15:29 GFR Calculation Not Reportable 09/04/24 15:29 Glucose 270 mg/dL (65-115) H 09/04/24 15:29 POC Glucose 278 mg/dL (70-110) H 09/04/24 14:33 Calculated Osmolality 298 mOsm/kg (285-295) H 09/04/24 15:29 Calcium 9.2 mg/dL (8.5-10.5) 09/04/24 15:29 Total Bilirubin 0.5 mg/dL (0.15-1.2) 09/04/24 11:37 AST 11 U/L (0-40) 09/04/24 11:37 ALT 13 U/L (0-41) 09/04/24 11:37 Alkaline Phosphatase 100 U/L (40-130) 09/04/24 11:37 Total Protein 6.8 g/dL (6.6-8.7) 09/04/24 11:37 Albumin 3.5 g/dL (3.5-5.2) 09/04/24 11:37 Globulin 3.3 g/dL (1.3-4.6) 09/04/24 11:37 Urine Color Yellow (Yellow) 09/04/24 11:32 Urine Appearance Clear (CLEAR) 09/04/24 11:32 Urine pH 7.5 (5-7) 09/04/24 11:32 Ur Specific [place] 1.018 (1.005-1.030) 09/04/24 11:32 Urine Protein 2+ (Negative) A 09/04/24 11:32 Urine Glucose (UA) 3+ (Normal) H 09/04/24 11:32 Urine Ketones Negative (Negative) 09/04/24 11:32 Urine Blood Trace (Negative) A 09/04/24 11:32 Urine Nitrate Negative (Negative) 09/04/24 11:32 Urine Bilirubin Negative (Negative) 09/04/24 11:32 Urine Urobilinogen 0.2 mg/dL (Negative) 09/04/24 11:32 Ur Leukocyte Esterase Trace (Negative) A 09/04/24 11:32 Urine RBC 0-2 /hpf (0-2) 09/04/24 11:32 Urine WBC 11-20 /hpf (0-5) H 09/04/24 11:32 Ur Squamous Epith Cells 0-5 /hpf (0-5) 09/04/24 11:32 Amorphous Sediment Not Reportable 09/04/24 11:32 Urine Bacteria 1+ /hpf (NONE) H 09/04/24 11:32 Hyaline Casts 4.11 /lpf 09/04/24 11:32 Vancomycin Trough 15.8 ug/mL (10-15) H 09/04/24 15:29 Urine Opiates Screen Negative ng/mL (Negative) 09/04/24 11:32 Ur Barbiturates Screen Negative ng/mL (Negative) 09/04/24 11:32 Ur Phencyclidine Scrn Negative ng/mL (Negative) 09/04/24 11:32 Ur Amphetamines Screen Negative ng/mL (Negative) 09/04/24 11:32 U Benzodiazepines Scrn Negative ng/mL (Negative) 09/04/24 11:32 Urine Cocaine Screen Negative ng/mL (Negative) 09/04/24 11:32 U Marijuana (THC) Screen Negative ng/mL (Negative) 09/04/24 11:32 Serum Ketones Negative (Negative) 09/04/24 11:37 Influenza A (PCR) Negative (Negative) 09/04/24 12:27 Influenza Type B (PCR) Negative (Negative) 09/04/24 12:27 RSV (PCR) Negative (Negative) 09/04/24 12:27 SARS-CoV-2 (PCR) Negative (Negative) 09/04/24 12:27 All radiology interpretation(s) finalized by discharge EKG Data EKG 1: Interpretation: EKG 09/04/2024 1156 sinus rhythm right bundle branch block rate of 89 OH interval 153 QTc [address] changes noted EKG compared to 06/12/2024 Discharge Plan Discharge Patient Disposition: Admitted As Inpatient Admit Provider: Shila Lizarraga Clinical Impression: Numbness of left hand, CKD stage 2 due to type 1 diabetes mellitus, Cystitis Condition: Stable Coding Level of Care Code ED Greenhouse Laborer for Osiris Ansari
[2024-09-04 11:48] LABS: Basophils # 0.1 10^3/uL (0.0-0.1); Basophils % 0.9 %; Eosinophils # 0.1 10^3/uL (0.0-0.8); Hematocrit 36.2 % (37-53); Lymphocytes # 1.4 10^3/uL (0.8-4.8); Lymphocytes % 23.7 %; Mean Corpuscular Hemoglobin 29.3 pg (27-33); Mean Corpuscular Volume 86.2 fl (82-101); Mean Platelet Volume 10.3 fL (7.4-10.4); Monocytes # 0.9 10^3/uL (0.2-0.9); Monocytes % 15.2 %; Neutrophils # 3.37 10^3/uL (1.8-7.7); Neutrophils % 58.9 %; Nucleated Red Blood Cells % 0 %; Platelet Count 119 10^3/cmm (157-399); Red Cell Distribution Width 13.9 % (12.1-15.1); White Blood Count 5.73 10^3/uL (3.29-11.43)
[2024-09-04 11:51] LABS: Bilirubin Urine Negative (Negative); Blood Urine Trace (Negative); Glucose Urine UA 3+ (Normal); Ketones Urine Negative (Negative); Leukocyte Esterase Urine Trace (Negative); Nitrate Urine Negative (Negative); Protein Urine 2+ (Negative); Specific Gravity, Urine 1.018 (1.005-1.030); Urine Appearance Clear (CLEAR); Urine Color Yellow (Yellow); Urobilinogen Urine 0.2 mg/dL (Negative); pH Urine 7.5 (5-7)
[2024-09-04 11:53] LABS: Add Urine Microscopic? YES; Bacteria Urine 1+ /hpf; Hyaline Casts Urine 4.11 /lpf; RBC Urine 0-2 /hpf (0-2); Squamous Epithelial Cell Urine 0-5 /hpf (0-5)
--- NOTE | 2024-09-04 11:56 | ECG_ITS ---
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 Measurements Intervals [place] Rate: 89 P: 12 NM: 153 QRS: -5 QRSD: 133 T: 13 QT: 386 QTc: 470 Interpretive Statements SINUS RHYTHM RIGHT BUNDLE BRANCH BLOCK [120+ ms QRS DURATION, UPRIGHT V1, 40+ ms S IN I/aVL/V4/V5/V6] Compared to ECG 06/12/2024 18:20:06 Sinus tachycardia no longer present Electronically Signed On 09-04-2024 21:55:57 CDT by Ha Cisneros M.D. [email or web address]
[2024-09-04 11:58] LABS: Amphetamines Screen Urine Negative (Negative); Barbiturates Screen Urine Negative (Negative); Benzodiazepines Screen Urine Negative (Negative); Cocaine Screen Urine Negative (Negative); Opiate Screen Urine Negative (Negative); PCP Screen Urine Negative (Negative); THC Screen Urine Negative (Negative)
[2024-09-04 12:01] LABS: INR 1.17 (0.8-1.2); Ketone (Acetest) Serum Negative (Negative)
[2024-09-04 12:02] LABS: Partial Thromboplastin Time 29.7 SECONDS (23.9-36.7)
[2024-09-04 12:06] LABS: Alanine Aminotransferase 13 U/L (0-41); Albumin Level 3.5 g/dL (3.5-5.2); Alkaline Phosphatase 100 U/L (40-130); Anion Gap 16.7 (5-19); Aspartate Amino Transferase 11 U/L (0-40); Blood Urea Nitrogen 28 mg/dL (8-23); Calcium 8.7 mg/dL (8.5-10.5); Carbon Dioxide 22 mmol/L (22-29); Chloride 97 mmol/L (98-107); Globulin 3.3 g/dL (1.3-4.6); Osmolality Calculated 301 mOsm/kg (285-295); Potassium 4.7 mmol/L (3.5-5.1); Sodium 131 mmol/L (136-145); Total Bilirubin 0.5 mg/dL (0.15-1.2); Total Protein 6.8 g/dL (6.6-8.7)
[2024-09-04 12:12] LABS: Glucose 525 mg/dL (65-115)
[2024-09-04] MEDS: insulin regular-human 100 units/1 mL 15 UNIT IVP (12:24)
[2024-09-04 13:03] LABS: Glucose Point of Care 347 mg/dL (70-110)
[2024-09-04 13:51] LABS: Influenza A NEGATIVE (Negative); Influenza B NEGATIVE (Negative); Respiratory Syncytial Virus Ce NEGATIVE (Negative); SARS-CoV-2 PCR NEGATIVE (Negative)
[2024-09-04 14:36] LABS: Glucose Point of Care 278 mg/dL (70-110)
--- NOTE | 2024-09-04 14:36 | PC.NURSE ---
Pt urostomy bag leaking, failed seal on wafer, this nurse used pt home supplies to change urostomy bag
--- NOTE | 2024-09-04 14:38 | PC.PHAR ---
Pt states he took am meds today but does not know what they are. Pts' girlfriend takes care of his medications and she is working today. Verified last fill dates and day supply with [facility].
--- NOTE | 2024-09-04 15:19 | PM.HP ---
Providers/Chief Complaint Primary Care Provider: Ivett Still MD Chief Complaint: Dizzy History of Present Illness Cole Troncoso is a 73 year old male With past medical history of osteoarthritis of right knee, brainstem stroke with hemorrhage, CKD stage II, poorly controlled diabetes, obstructive sleep apnea, history of bladder cancer status post urostomy, normal alcohol use, recent Charcot right foot status post bone debridement with culture positive for MRSA/osteomyelitis currently on a 6-week IV vancomycin regimen at home with currently doing dressing changes with Hydrofera Blue and following up with podiatry presented to the hospital today for complaint of weakness that has been going on for last few days. He also experienced chills last night. Denies a fever. He has a PICC line in place in right arm. PICC insertion site does not seem to be infected. He has also been complaining of left hand numbness that has been going on since overnight. Last known normal was 9 PM yesterday per he states he went to sleep and may have slept wrong and feels his hand has been sleeping since then. He does endorse a history of carpal tunnel syndrome and states that he was apparently supposed to have surgery done for it. He has done EMG studies in the past. He follows with Dr. Berry. Chart review shows that patient does have bilateral carpal tunnel syndrome confirmed by nerve conduction studies showing severe compression of median nerves at the wrist on both sides. He also states he sustained a fall few weeks ago where he had a laceration on left side of forehead. Patient recently had a coronary angiogram on 02 August and is status post balloon angioplasty of diagonal artery and did have a patent proximal LAD stent. Recommended dual antiplatelet therapy with aspirin Plavix. CT head negative for acute stroke today. In ER today blood sugar 525. Patient states he is not taking any of his medications today. He denies nausea vomiting diarrhea or any other symptoms at this time except intermittent dizziness and left hand numbness. Medications/Allergies Home Medications ?Medication ?Instructions ?Recorded ?Confirmed ?Last Taken ?Type insulin aspart U-100 100 unit/mL See Rx Instructions .Route 05/01/24 09/04/24 09/04/24 Rx (3 mL) subcutaneous pen (Novolog .COMPLEX #15 mL FlexPen U-100 Insulin aspart) albuterol sulfate 90 mcg/actuation 2 inh inhalation Q4H PRN shortness 03/09/04/24 08/01/24 21:00 Rx aerosol inhaler of breath or wheezing #18 grams blood sugar diagnostic (OneTouch #50 ea 06/12/24 09/04/24 Unknown Rx Ultra Test strips) mupirocin 2 % topical ointment 1 applic topical BID #15 grams 07/17/24 09/04/24 Unknown Rx atorvastatin 40 mg tablet (Lipitor) 40 mg PO DAILY #90 tabs 08/03/24 09/04/24 09/03/24 Rx famotidine 40 mg tablet 40 mg PO BID #60 tabs 08/03/24 09/04/24 09/04/24 Rx blood-glucose sensor (FreeStyle #2 ea 08/08/24 09/04/24 Unknown Rx Jenae 3 Sensor device) [place] boot #1 ea 08/21/24 09/04/24 Unknown Rx clopidogrel 75 mg tablet 75 mg PO DAILY 30 days #90 tabs 08/28/24 09/04/24 09/04/24 Rx losartan 25 mg tablet 12.5 mg (1/2 x 25 mg) PO DAILY #30 09/01/24 09/04/24 09/04/24 Rx tabs ropinirole 4 mg tablet 8 mg (2 x 4 mg) PO BID #180 tabs 09/01/24 09/04/24 09/04/24 Rx aspirin 81 mg tablet,delayed 81 mg PO DAILY 09/04/24 09/04/24 09/04/24 History release gabapentin 600 mg tablet 600 mg PO Q8H 09/04/24 09/04/24 09/04/24 History insulin glargine 100 unit/mL (3 24 unit SUBCUT BID 09/04/24 09/04/24 09/04/24 History mL) subcutaneous pen (Lantus Solostar U-100 Insulin) Allergies Allergy/AdvReac Type Severity Reaction Status Date / Time Penicillins Allergy ALGY-Hives Verified 09/04/24 12:45 PFSH Acute PFSH: Medical History Prepatellar bursitis, right knee Osteoarthritis of right knee Acute pain of right knee 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 BG well controlled with scheduled insulin -consistent carb diet as tolerated Parastomal hernia PETER (obstructive sleep apnea) History of bladder cancer Hx of intestinal obstruction Surgical History History of appendectomy History of cholecystectomy History of shoulder surgery History of urostomy History of esophageal hernia repair Family History Mother Thyroid disease Hypertension Father Hypertension Social History Smoking and tobacco/nicotine status: never used tobacco/nicotine Quit status (tobacco/nicotine): has quit using Year quit tobacco: 2009 Former quit date comment: previously 4 ppd Alcohol intake: former Substance/Drug Use: never Lives independently: Yes Household members: other Details: brother Marital status: / Number of children: 1 Number of grandchildren: 2 service: No Current occupational status: retired and 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 gender identity: Male Special jose carlos needs: No Agree to transfusion: Yes Vitals/I&O/Wt Last Vital Signs Temp 98.4 F 09/04/24 11:02 Pulse 80 09/04/24 15:03 Resp 16 09/04/24 15:03 BP 139/71 09/04/24 15:03 Pulse Ox 95 09/04/24 15:03 Physical Exam Const: COMMON NORMALS: no acute distress and patient oriented x3 Resp: COMMON NORMALS: normal respiratory effort, No retractions, No use of accessory muscles and clear to auscultation bilaterally AUSCULTATION: clear to auscultation bilaterally Cardio: COMMON NORMALS: regular rate, regular rhythm, S1 normal heart sound present and S2 normal heart sound present RATE: regular rate RHYTHM: regular rhythm HEART SOUNDS: S1 normal heart sound present and S2 normal heart sound present GI: COMMON NORMALS: Normal to inspection, nondistended, normoactive bowel sounds present and non-tender Extremity: COMMON NORMALS: no clubbing, cyanosis or edema (No edema bilateral lower extremities. Right foot not examined ) Neuro: COMMON NORMALS: patient oriented x3 OTHER: Strength bilateral lower extremities equal and symmetrical. No focal neurological deficits. Left hand numbness present distal to wrist. Psych: COMMON NORMALS: mental status grossly normal Data 09/04/24 11:37 09/04/24 15:29 A&P Assessment and plan (1) Hypertension: (2) Coronary artery disease: (3) Dyslipidemia: (4) DM type 2 (diabetes mellitus, type 2): (5) GERD (gastroesophageal reflux disease): (6) CKD stage 2 due to type 1 diabetes mellitus: (7) Charcot foot due to diabetes mellitus: (8) Severe carpal tunnel syndrome of both wrists: (9) PETER (obstructive sleep apnea): (10) Numbness of left hand: (11) Dizziness: Plan #Dizziness, unclear etiology #Left hand numbness with history of bilateral severe carpal tunnel syndrome #History of brainstem hemorrhagic stroke #CKD stage II #Hyperglycemia #Poorly controlled diabetes #History of obstructive sleep apnea #History of bladder cancer status post urostomy #Possible UTI #Charcot foot, osteomyelitis status post bone debridement, positive for MRSA #Coronary disease with history of PCI times balloon angioplasty, stent ? Continue aspirin atorvastatin Plavix ? Patient received 15 units of lispro in ER. Placed on monitor was noted to sliding scale insulin ? Continue Lantus 24 units twice daily. Patient did not take his medication today. ? Hold home losartan. He is experiencing dizziness ? Check orthostatic vital signs ? Patient does have severe carpal tunnel syndrome but has not had surgery done yet. - Check carotid Dopplers ? Check urine culture, blood culture ? Continue vancomycin IV ? Continue Vanco trough ? Will continue dressing changes with Hydrofera Blue ? Place in cardiac telemetry ? Check EKG ? Placed on IV fluids normal saline 75 cc/h. Full code DVT prophylaxis: Heparin SQ twice daily PDMP PDMP Reviewed: Not Reviewed Attestations Medical Necessity Statement*: observation admission for diziness, UTI Diagnoses Primary hypertension I10 Hypertension type: primary hypertension Coronary artery disease I25.10 Dyslipidemia E78.5 DM type 2 (diabetes mellitus, type 2) E11.9 GERD (gastroesophageal reflux disease) K21.9 CKD stage 2 due to type 1 diabetes mellitus E10.22; N18.2 Charcot foot due to diabetes mellitus E11.610 Severe carpal tunnel syndrome of both wrists G56.03 PETER (obstructive sleep apnea) G47.33 Numbness of left hand R20.0 Dizziness R42
--- NOTE | 2024-09-04 15:58 | USCV_ITS ---
Cole Troncoso Age: 73 Gender: M : 1950 Exam Date: 09/04/2024 16:36 Ordering Phys: Shila Lizarraga MD Technologist: [employer] Exam Location: [facility] [place] Indication: dizziness Risk Factors: Previous Vascular Surgery: Right Brachial BP: / Left Brachial BP: / Right Left Velocity (cm/s) Spectral Plaque Velocity (cm/s) Spectral Plaque Syst/Diast Broadening Syst/Diast Broadening 68.80/ 15.00 Prox CCA 109.50/ 22.20 108.30/23.20 Mid CCA 114.50/ 22.30 97.90/ 22.80 Distal CCA 95.00 / 18.80 100.00/16.20 Homo Prox ICA 101.90/ 25.10 75.70/ 25.70 Mid ICA 98.90 / 23.70 103.00/30.00 Distal ICA 100.30/ 22.30 127.00 ECA 78.70 1.00 ICA/CCA 1.10 Antegrade Vertebral Antegrade 43.10/ 20.00 cm/s 51.90/ 15.60 cm/s Tri Subclavian Tri 106.1 125.8 0 0 CONCLUSIONS Right ICA stenosis <50%. Moderate atheromatous plaque right carotid bulb/ICA. Left ICA stenosis <50%. Moderate atheromatous plaque left carotid bulb/ICA. Intimal thickening in the common carotid arteries and internal carotid arteries bilaterally. Normal antegrade Doppler flow noted in the right vertebral artery. Normal antegrade Doppler flow noted in the left vertebral artery. Jung Gutirerez MD (Electronically Signed) Final Date: 05 September 2024 08:50 S
[2024-09-04 16:11] LABS: Anion Gap 16.1 (5-19); Blood Urea Nitrogen 30 mg/dL (8-23); Calcium 9.2 mg/dL (8.5-10.5); Carbon Dioxide 23 mmol/L (22-29); Chloride 101 mmol/L (98-107); Glucose 270 mg/dL (65-115); Osmolality Calculated 298 mOsm/kg (285-295); Potassium 4.1 mmol/L (3.5-5.1); Sodium 136 mmol/L (136-145)
[2024-09-04 16:34] LABS: Vancomycin Trough 15.8 ug/mL (10-15)
[2024-09-04] MEDS: sodium chloride 0.9% 1,000 ML 100 ML IV (17:52)
[2024-09-04 17:54] LABS: Estmated Average Glucose 246; Hemoglobin A1C 10.2 % (4.0-6.0)
[2024-09-04] MEDS: famotidine 20 mg Tablet 40 MG PO (17:57)
[2024-09-04] MEDS: ropinirole 2 mg Tablet 8 MG PO (17:57)
[2024-09-04] MEDS: mupirocin oint 22 gm 1 APPLIC TOPICAL (17:57)
[2024-09-04] MEDS: gabapentin 300 mg Capsule 600 MG PO ×2 (17:58→23:02)
[2024-09-04] MEDS: insulin lispro 100 unit/1 mL SUBCUT ×2 (17:58→20:59)
[2024-09-04] MEDS: cefTRIAXone 1,000 mg SDV 1000 MG IVP (17:59)
[2024-09-04] MEDS: insulin glargine 100 units/1 mL 24 UNIT SUBCUT (18:23)
[2024-09-04] MEDS: VANCOMYCIN ADD-Vantage 1,000 MG in 0.9% NaCl ADD-Vantage 250 ML 250 MG IV (19:42)
[2024-09-04 20:32] LABS: Glucose Point of Care 369 mg/dL (70-110)
[2024-09-04 22:41] LABS: Glucose Point of Care 276 mg/dL (70-110)
[2024-09-05] VITALS (16 sets, daily range): BP systolic 115–149; BP diastolic 64–76; PULSE 68–92; RESP 16–18; TEMP 36.4–36.9; O2SAT 92–98
[2024-09-05] MEDS: sodium chloride 0.9% 1,000 ML 100 ML IV ×3 (02:26→21:11)
[2024-09-05 05:41] LABS: Hematocrit 37.5 % (37-53); Mean Corpuscular HGB Conc 33.3 g/dL (30-55); Mean Corpuscular Hemoglobin 28.9 pg (27-33); Mean Corpuscular Volume 86.6 fl (82-101); Mean Platelet Volume 10.3 fL (7.4-10.4); Platelet Count 131 10^3/cmm (157-399); Red Blood Count 4.33 10^6/uL (3.85-5.65); Red Cell Distribution Width 14.1 % (12.1-15.1); White Blood Count 5.54 10^3/uL (3.29-11.43)
[2024-09-05 05:58] LABS: Alanine Aminotransferase 15 U/L (0-41); Albumin Level 3.2 g/dL (3.5-5.2); Alkaline Phosphatase 90 U/L (40-130); Anion Gap 14.5 (5-19); Aspartate Amino Transferase 14 U/L (0-40); Blood Urea Nitrogen 30 mg/dL (8-23); Calcium 8.5 mg/dL (8.5-10.5); Carbon Dioxide 23 mmol/L (22-29); Chloride 105 mmol/L (98-107); Globulin 3.3 g/dL (1.3-4.6); Glucose 252 mg/dL (65-115); Magnesium 1.6 mg/dL (1.7-2.3); Osmolality Calculated 301 mOsm/kg (285-295); Phosphorus 3.2 mg/dL (2.5-4.5); Potassium 4.5 mmol/L (3.5-5.1); Sodium 138 mmol/L (136-145); Total Protein 6.5 g/dL (6.6-8.7)
[2024-09-05 06:34] LABS: Glucose Point of Care 277 mg/dL (70-110)
--- NOTE | 2024-09-05 07:10 | PHA.VACGOAL ---
Vancomycin Goal - Goal Vancomycin Goal:: 15-20 mg/L Vancomycin Indication:: Other - Therapy Current therapy:: Other Antibiotic (CEFTRIAXONE) Day of therpy:: Day []of [] . Actual body weight (kg): 227 lb - Data Labs: WBC 5.73 10^3/uL (3.29-11.43) 09/04/24 11:37 RBC 4.20 10^6/uL (3.85-5.65) 09/04/24 11:37 Hgb 12.30 g/dL (11.27-16.99) 09/04/24 11:37 Hct 36.2 % (37-53) L 09/04/24 11:37 MCV 86.2 fl (82-101) 09/04/24 11:37 MCH 29.3 pg (27-33) 09/04/24 11:37 MCHC 34.0 g/dL (30-55) 09/04/24 11:37 RDW 13.9 % (12.1-15.1) 09/04/24 11:37 Sodium 138 mmol/L (136-145) 09/05/24 05:17 Potassium 4.5 mmol/L (3.5-5.1) 09/05/24 05:17 Chloride 105 mmol/L (98-107) 09/05/24 05:17 Carbon Dioxide 23 mmol/L (22-29) 09/05/24 05:17 Anion Gap 14.5 (5-19) 09/05/24 05:17 BUN 30 mg/dL (8-23) H 09/05/24 05:17 Creatinine 1.3 mg/dL (0.7-1.2) H 09/05/24 05:17 GFR Calculation Not Reportable 09/05/24 05:17 Last dialysis session:: N/A Treatment plan:: new consult Regimen:: INITIAL MAINTENANCE DOSE OF 1000 MG Q12H Follow up:: WILL CONTINUE TO MONITOR AND FOLLOW UP DAILY. TROUGH 09/06 @0630
[2024-09-05 07:21] LABS: Slide Review Slide Review Perform
[2024-09-05 07:22] LABS: Absolute Eosinophils 0.2 10^3/cmm (0.0-0.7); Absolute Neutrophil 3.5 10^3/cmm (1.4-6.5); Absolute Segmented Neutrophil 3.2 10/cmm (1.6-7.1); Band Neutrophils Absolute 0.4 10^3/cmm (0.0-1.2); Eosinophils 4 %; Lymphocytes 14 %; Lymphocytes Absolute 1.2 10^3/cmm (1.2-3.4); Monocytes Absolute 0.3 10^3/cmm (0.1-0.6); Platelet Estimate Decreased (Normal); Segmented Neutrophils 57 %; Total Cells Counted 100 (0-100)
[2024-09-05] MEDS: cefepime 1,000 mg SDV 1000 MG IVP ×2 (08:27→20:00)
[2024-09-05] MEDS: ropinirole 2 mg Tablet 8 MG PO ×2 (08:28→17:42)
[2024-09-05] MEDS: aspirin 81 mg EC Tablet PO (08:28)
[2024-09-05] MEDS: gabapentin 300 mg Capsule 600 MG PO ×3 (08:29→23:46)
[2024-09-05] MEDS: losartan 50 mg Tablet 12.5 MG PO (08:29)
[2024-09-05] MEDS: clopidogrel 75 mg Tablet PO (08:29)
[2024-09-05] MEDS: atorvastatin 40 mg Tablet PO (08:29)
[2024-09-05] MEDS: famotidine 20 mg Tablet 40 MG PO ×2 (08:29→17:43)
[2024-09-05] MEDS: VANCOMYCIN ADD-Vantage 1,000 MG in 0.9% NaCl ADD-Vantage 250 ML 250 MG IV ×2 (08:30→18:56)
[2024-09-05] MEDS: insulin lispro 100 unit/1 mL SUBCUT ×4 (08:31→21:10)
--- NOTE | 2024-09-05 09:34 | PC.NURSE ---
communication coordinator rounds at 0845- patient states he still has his stroke education book from his last visit
[2024-09-05] MEDS: insulin glargine 100 units/1 mL 24 UNIT SUBCUT ×2 (10:12→17:43)
[2024-09-05 11:09] LABS: Glucose Point of Care 329 mg/dL (70-110)
[2024-09-05 11:41] LABS: Total Bilirubin 0.3 mg/dL (0.15-1.2)
--- NOTE | 2024-09-05 12:41 | P.PN_ITS ---
Subjective 2 Subjective: dizziness has resolved orthostatic vitals neg urine culture pending feeling better has 7% bands this AM no longer having chills afebrile overnight mag 1.6 this am. improving left hand numbness Vitals/I&O/Wt Last Vital Signs Temp 98.0 F 09/05/24 11:40 Pulse 81 09/05/24 11:45 Resp 18 09/05/24 11:45 BP 138/73 09/05/24 11:40 Pulse Ox 94 09/05/24 11:45 O2 Del Method Room Air 09/05/24 11:45 09/04/24 09/05/24 09/05/24 22:59 06:59 14:59 Intake Total 370 / 370 856.667 / 1226.667 490 / 490 Output Total 1000 / 1000 400 / 1400 1445 / 1445 Balance -630 / -630 456.667 / -173.333 -955 / -955 Weight last 48 hrs Weight 102.965 kg Weight 101.151 kg Physical Exam 2 Const: COMMON NORMALS: no acute distress and patient oriented x3 Resp: COMMON NORMALS: normal respiratory effort, No retractions, No use of accessory muscles and clear to auscultation bilaterally AUSCULTATION: clear to auscultation bilaterally Cardio: COMMON NORMALS: regular rate, regular rhythm, S1 normal heart sound present and S2 normal heart sound present RATE: regular rate RHYTHM: r egular rhythm HEART SOUNDS: S1 normal heart sound present and S2 normal heart sound present GI: COMMON NORMALS: Normal to inspection, nondistended, normoactive bowel sounds present and non-tender Extremity: COMMON NORMALS: no clubbing, cyanosis or edema (No edema bilateral lower extremities. Right foot not examined ) Neuro: COMMON NORMALS: patient oriented x3 OTHER: Strength bilateral lower extremities equal and symmetrical. No focal neurological deficits. Left hand numbness improving Psych: COMMON NORMALS: mental status grossly normal Data 09/05/24 05:17 09/05/24 05:17 Micro: Microbiology 09/04/24 19:20 Blood Culture - Preliminary Blood SPECIMEN COLLECTED 09/04/24 19:17 Blood Culture - Preliminary Blood SPECIMEN COLLECTED A&P Assessment and plan (1) Hypertension: (2) Coronary artery disease: (3) Dyslipidemia: (4) DM type 2 (diabetes mellitus, type 2): (5) GERD (gastroesophageal reflux disease): (6) CKD stage 2 due to type 1 diabetes mellitus: (7) Charcot foot due to diabetes mellitus: (8) Severe carpal tunnel syndrome of both wrists: (9) PETER (obstructive sleep apnea): (10) Numbness of left hand: (11) Dizziness: Plan #Dizziness, unclear etiology #Left hand numbness with history of bilateral severe carpal tunnel syndrome #History of brainstem hemorrhagic stroke #CKD stage II #Hyperglycemia #Poorly controlled diabetes #History of obstructive sleep apnea #History of bladder cancer status post urostomy #Possible UTI #Charcot foot, osteomyelitis status post bone debridement, positive for MRSA #Coronary disease with history of PCI times balloon angioplasty, stent ? Continue aspirin atorvastatin Plavix ? Patient received 15 units of lispro in ER. Placed on monitor was noted to sliding scale insulin ? Continue Lantus 24 units twice daily. Patient did not take his medication today. ? Hold home losartan. He is experiencing dizziness ? Check orthostatic vital signs ? Patient does have severe carpal tunnel syndrome but has not had surgery done yet. - Check carotid Dopplers ? Check urine culture, blood culture ? Continue vancomycin IV ? Continue Vanco trough ? Will continue dressing changes with Hydrofera Blue ? Place in cardiac telemetry ? Check EKG ? Placed on IV fluids normal saline 75 cc/h. Full code DVT prophylaxis: Heparin SQ twice daily 09/05/2024 dizziness has resolved blood culture, urine culture pending continue daily dressing changes with hydrophera blue is on 6 weeks IV vanc for foot infection stop IV fluids this AM left hand numbenss improving has a 7% bandemia on labs afebrile, no longer having chills if cultures neg by tomorrow, will consider dc home to continue current treatment possible UTI, await urine culture placed on zosyn continue in observation status PDMP PDMP Reviewed: Not Reviewed Attestations 2 Medical Necessity Statement*: observation admission for diziness, UTI has bandemia, potential DC in am Coding Level of Care Code Acute Code for Chg Fwd Diagnoses Primary hypertension I10 Hypertension type: primary hypertension Coronary artery disease I25.10 Dyslipidemia E78.5 DM type 2 (diabetes mellitus, type 2) E11.9 GERD (gastroesophageal reflux disease) K21.9 CKD stage 2 due to type 1 diabetes mellitus E10.22; N18.2 Charcot foot due to diabetes mellitus E11.610 Severe carpal tunnel syndrome of both wrists G56.03 PETER (obstructive sleep apnea) G47.33 Numbness of left hand R20.0 Dizziness R42
[2024-09-05 16:28] LABS: Glucose Point of Care 221 mg/dL (70-110)
[2024-09-05 20:31] LABS: Glucose Point of Care 288 mg/dL (70-110)
[2024-09-06] VITALS (10 sets, daily range): BP systolic 138–171; BP diastolic 66–86; PULSE 63–83; RESP 16–19; TEMP 36.4–36.8; O2SAT 93–96
[2024-09-06 06:27] LABS: Glucose Point of Care 297 mg/dL (70-110)
[2024-09-06 07:00] LABS: Vancomycin Trough 17.2 ug/mL (10-15)
[2024-09-06 07:05] LABS: Basophils # 0.1 10^3/uL (0.0-0.1); Basophils % 0.9 %; Eosinophils # 0.3 10^3/uL (0.0-0.8); Eosinophils % 5.8 %; Hematocrit 36.5 % (37-53); Lymphocytes # 1.9 10^3/uL (0.8-4.8); Mean Corpuscular HGB Conc 33.4 g/dL (30-55); Mean Corpuscular Hemoglobin 29.5 pg (27-33); Mean Corpuscular Volume 88.4 fl (82-101); Mean Platelet Volume 10.4 fL (7.4-10.4); Monocytes # 0.9 10^3/uL (0.2-0.9); Neutrophils # 2.56 10^3/uL (1.8-7.7); Neutrophils % 45.1 %; Nucleated Red Blood Cells % 0 %; Platelet Count 126 10^3/cmm (157-399); Red Blood Count 4.13 10^6/uL (3.85-5.65); White Blood Count 5.67 10^3/uL (3.29-11.43)
[2024-09-06 07:09] LABS: Alanine Aminotransferase 15 U/L (0-41); Albumin Level 3.1 g/dL (3.5-5.2); Alkaline Phosphatase 92 U/L (40-130); Anion Gap 13.3 (5-19); Aspartate Amino Transferase 13 U/L (0-40); Blood Urea Nitrogen 20 mg/dL (8-23); Calcium 8.4 mg/dL (8.5-10.5); Carbon Dioxide 20 mmol/L (22-29); Chloride 104 mmol/L (98-107); Globulin 2.8 g/dL (1.3-4.6); Glucose 293 mg/dL (65-115); Osmolality Calculated 289 mOsm/kg (285-295); Potassium 4.3 mmol/L (3.5-5.1); Sodium 133 mmol/L (136-145); Total Bilirubin 0.3 mg/dL (0.15-1.2); Total Protein 5.9 g/dL (6.6-8.7)
[2024-09-06] MEDS: VANCOMYCIN ADD-Vantage 1,000 MG in 0.9% NaCl ADD-Vantage 250 ML 250 MG IV ×2 (07:19→18:34)
[2024-09-06] MEDS: sodium chloride 0.9% 1,000 ML 100 ML IV ×2 (07:24→18:09)
[2024-09-06] MEDS: insulin lispro 100 unit/1 mL SUBCUT ×4 (08:30→22:35)
[2024-09-06] MEDS: insulin glargine 100 units/1 mL 24 UNIT SUBCUT ×2 (08:30→18:12)
[2024-09-06] MEDS: cefepime 1,000 mg SDV 1000 MG IVP ×2 (08:31→22:35)
[2024-09-06] MEDS: losartan 50 mg Tablet 12.5 MG PO (08:33)
[2024-09-06] MEDS: gabapentin 300 mg Capsule 600 MG PO ×2 (08:33→16:36)
[2024-09-06] MEDS: atorvastatin 40 mg Tablet PO (08:35)
[2024-09-06] MEDS: clopidogrel 75 mg Tablet PO (08:35)
[2024-09-06] MEDS: famotidine 20 mg Tablet 40 MG PO ×2 (08:35→18:11)
[2024-09-06] MEDS: ropinirole 2 mg Tablet 8 MG PO ×2 (08:35→18:11)
[2024-09-06] MEDS: aspirin 81 mg EC Tablet PO (08:36)
--- NOTE | 2024-09-06 09:20 | PC.NURSE ---
surgical coordinator rounds @ 7149
[2024-09-06 11:02] LABS: Glucose Point of Care 327 mg/dL (70-110)
--- NOTE | 2024-09-06 12:23 | P.PN_ITS ---
Vitals/I&O/Wt Last Vital Signs Temp 97.7 F 09/06/24 11:45 Pulse 83 09/06/24 11:45 Resp 19 H 09/06/24 11:45 BP 153/66 09/06/24 11:45 Pulse Ox 93 09/06/24 11:45 O2 Del Method Room Air 09/06/24 11:45 09/05/24 09/06/24 09/06/24 22:59 06:59 14:59 Intake Total 1181.667 / 2671.667 2210 / 2210 Output Total 1800 / 3245 800 / 4045 Balance -618.333 / -573.333 -800 / -4521.181 8470 / 2210 Weight last 48 hrs Weight 105.233 kg Weight 102.965 kg Weight 101.151 kg Physical Exam 2 Const: COMMON NORMALS: no acute distress and patient oriented x3 Resp: COMMON NORMALS: normal respiratory effort, No retractions, No use of accessory muscles and clear to auscultation bilaterally AUSCULTATION: clear to auscultation bilaterally Cardio: COMMON NORMALS: regular rate, regular rhythm, S1 normal heart sound present and S2 normal heart sound present RATE: regular rate RHYTHM: r egular rhythm HEART SOUNDS: S1 normal heart sound present and S2 normal heart sound present GI: COMMON NORMALS: Normal to inspection, nondistended, normoactive bowel sounds present and non-tender Extremity: COMMON NORMALS: no clubbing, cyanosis or edema (No edema bilateral lower extremities. Right foot not examined ) Neuro: COMMON NORMALS: patient oriented x3 OTHER: Strength bilateral lower extremities equal and symmetrical. No focal neurological deficits. Left hand numbness improving Psych: COMMON NORMALS: mental status grossly normal Data 09/06/24 06:35 09/06/24 06:35 Micro: Microbiology 09/04/24 19:20 Blood Culture - Preliminary Blood NEGATIVE TO DATE 09/04/24 19:17 Blood Culture - Preliminary Blood NEGATIVE TO DATE A&P Assessment and plan (1) Hypertension: (2) Coronary artery disease: (3) Dyslipidemia: (4) DM type 2 (diabetes mellitus, type 2): (5) GERD (gastroesophageal reflux disease): (6) CKD stage 2 due to type 1 diabetes mellitus: (7) Charcot foot due to diabetes mellitus: (8) Severe carpal tunnel syndrome of both wrists: (9) PETER (obstructive sleep apnea): (10) Numbness of left hand: (11) Dizziness: Plan #Dizziness, unclear etiology #Left hand numbness with history of bilateral severe carpal tunnel syndrome #History of brainstem hemorrhagic stroke #CKD stage II #Hyperglycemia #Poorly controlled diabetes #History of obstructive sleep apnea #History of bladder cancer status post urostomy #Possible UTI #Charcot foot, osteomyelitis status post bone debridement, positive for MRSA #Coronary disease with history of PCI times balloon angioplasty, stent ? Continue aspirin atorvastatin Plavix ? Patient received 15 units of lispro in ER. Placed on monitor was noted to sliding scale insulin ? Continue Lantus 24 units twice daily. Patient did not take his medication today. ? Hold home losartan. He is experiencing dizziness ? Check orthostatic vital signs ? Patient does have severe carpal tunnel syndrome but has not had surgery done yet. - Check carotid Dopplers ? Check urine culture, blood culture ? Continue vancomycin IV ? Continue Vanco trough ? Will continue dressing changes with Hydrofera Blue ? Place in cardiac telemetry ? Check EKG ? Placed on IV fluids normal saline 75 cc/h. Full code DVT prophylaxis: Heparin SQ twice daily 09/05/2024 dizziness has resolved blood culture, urine culture pending continue daily dressing changes with hydrophera blue is on 6 weeks IV vanc for foot infection stop IV fluids this AM left hand numbenss improving has a 7% bandemia on labs afebrile, no longer having chills if cultures neg by tomorrow, will consider dc home to continue current treatment possible UTI, await urine culture placed on zosyn continue in observation status 09/06/2024 Dizziness is resolved, orthostatic vitals are negative Patient completed 6 weeks of IV vancomycin for foot infection tomorrow. Consult podiatry. Bandemia has resolved. Urine culture positive for gram-negative rods greater than 100,000 colonies. Final urine culture is pending Continue cefepime. De-escalate once culture data is available. If it may be an ESBL we may decide to keep PICC line and send patient home for another 7 days of probably ertapenem however we will have to review culture data and then decide plan going forward. If UTI can be covered with oral antibiotics then PICC line will be removed tomorrow as long as that is okayed by podiatry. Left hand numbness has also almost resolved. Patient does have carpal tunnel syndrome. PDMP PDMP Reviewed: Not Reviewed Attestations 2 Medical Necessity Statement*: awaiting urine culture potential dc in am Diagnoses Primary hypertension I10 Hypertension type: primary hypertension Coronary artery disease I25.10 Dyslipidemia E78.5 DM type 2 (diabetes mellitus, type 2) E11.9 GERD (gastroesophageal reflux disease) K21.9 CKD stage 2 due to type 1 diabetes mellitus E10.22; N18.2 Charcot foot due to diabetes mellitus E11.610 Severe carpal tunnel syndrome of both wrists G56.03 PETER (obstructive sleep apnea) G47.33 Numbness of left hand R20.0 Dizziness R42
--- NOTE | 2024-09-06 19:03 | XRR_ITS ---
PROCEDURE INFORMATION: Exam: XR Right Foot Exam date and time: 09/06/2024 7:36 PM Age: 73 years old Clinical indication: Screening exam; Prior surgery; Surgery date: Post-operative (0-2 days); Surgery type: Postop exostectomy right plantar foot TECHNIQUE: Imaging protocol: Radiologic exam of the right foot. Views: 3 or more views. COMPARISON: CR XR foot RT min 3V* [id number] 05/26/2024 11:47 AM FINDINGS: Bones/joints: Redemonstration of Charcot arthropathy at the level of the midfoot. Pes planus deformity noted. No acute fracture. No significant joint effusion is apparent. Soft tissues: Generalized soft tissue swelling about the midfoot and hindfoot. XR/XR foot RT min 3V* [id number] IMPRESSION: Mid and hindfoot soft tissue swelling with Charcot arthropathy to the midfoot but no acute fracture.
[2024-09-06 19:25] LABS: Erythrocyte Sedimentation Rate 14 mm/hr (0-10)
[2024-09-06 19:46] LABS: C Reactive Protein 13.9 mg/L (0.0-4.9)
[2024-09-06 20:43] LABS: Glucose Point of Care 296 mg/dL (70-110)
[2024-09-06 20:44] LABS: Glucose Point of Care 342 mg/dL (70-110)
[2024-09-07] VITALS (8 sets, daily range): BP systolic 127–152; BP diastolic 69–82; PULSE 69–91; RESP 16–17; TEMP 36.4–36.8; O2SAT 94–97
[2024-09-07] MEDS: gabapentin 300 mg Capsule 600 MG PO ×3 (01:37→16:56)
[2024-09-07] MEDS: sodium chloride 0.9% 1,000 ML 100 ML IV (04:24)
--- NOTE | 2024-09-07 06:14 | PM.CONSULT ---
Providers/Reason For Consult Consulting Physician/Specialty*: [facility] Reason for Consult*: Right foot wound Attending Physician: Shila Lizarraga MD Primary Care Provider: Ivett Still MD History of Present Illness History of Present Illness Mr. Troncoso is an established 73 year old male patient who presents to the clinic for dressing change after Incision of bone cortex right foot DOS: 06/07/23. Patient has been completing daily dressing changes with hydrofera blue and tape. Patient has home health coming into home 2 times a week. Patient also has a PICC line in right upper extremity that he is doing daily IV antibotics. Patient's home health is [facility] [employer] and [facility] is the pharmacy for IV antibiotics. Reports improvement to his wound. Review of Systems General: Reports: 10 or more systems reviewed and unremarkable except in HPI and below Const: Denies: fever(s) or chills Card: Denies: chest pain or palpitations Resp: Denies: productive cough GI: Denies: abdominal pain, nausea or vomiting : Denies: flank pain Musc: Reports: extremity swelling, joint pain, joint stiffness, limited range of motion and deformity Skin/Breast: Reports: nail changes and change in hair; Denies: rash or sores Neuro: Reports: numbness in extremities, sensory changes and difficulty walking Psych: Denies: suicidal ideation Alfredo/Lymph: Denies: easy bruising Medications/Allergies Home Medications ?Medication ?Instructions ?Recorded ?Confirmed ?Last Taken ?Type insulin aspart U-100 100 unit/mL See Rx Instructions .Route 05/01/24 09/04/24 09/04/24 Rx (3 mL) subcutaneous pen (Novolog .COMPLEX #15 mL FlexPen U-100 Insulin aspart) albuterol sulfate 90 mcg/actuation 2 inh inhalation Q4H PRN shortness 06/02/24 09/04/24 08/01/24 21:00 Rx aerosol inhaler of breath or wheezing #18 grams blood sugar diagnostic (OneTouch #50 ea 06/12/24 09/04/24 Unknown Rx Ultra Test strips) mupirocin 2 % topical ointment 1 applic topical BID #15 grams 07/17/24 09/04/24 Unknown Rx atorvastatin 40 mg tablet (Lipitor) 40 mg PO DAILY #90 tabs 08/03/24 09/04/24 09/03/24 Rx blood-glucose sensor (FreeStyle #2 ea 08/08/24 09/04/24 Unknown Rx Jenae 3 Sensor device) JKAI lockwood #1 ea 08/21/24 09/04/24 Unknown Rx clopidogrel 75 mg tablet 75 mg PO DAILY 30 days #90 tabs 08/28/24 09/04/24 09/04/24 Rx losartan 25 mg tablet 12.5 mg (1/2 x 25 mg) PO DAILY #30 09/01/24 09/04/24 09/04/24 Rx tabs ropinirole 4 mg tablet 8 mg (2 x 4 mg) PO BID #180 tabs 09/01/24 09/04/24 09/04/24 Rx aspirin 81 mg tablet,delayed 81 mg PO DAILY 09/04/24 09/04/24 09/04/24 History release gabapentin 600 mg tablet 600 mg PO Q8H 09/04/24 09/04/24 09/04/24 History insulin glargine 100 unit/mL (3 24 unit SUBCUT BID 09/04/24 09/04/24 09/04/24 History mL) subcutaneous pen (Lantus Solostar U-100 Insulin) famotidine 40 mg tablet 40 mg PO BID #60 tabs 09/05/24 Unknown Rx Allergies Allergy/AdvReac Type Severity Reaction Status Date / Time Penicillins Allergy ALGY-Hives Verified 09/04/24 12:45 Current Medications Generic Name Dose Route Start Last Admin Trade Name Freq PRN Reason Stop Dose Admin Aspirin 81 mg 09/05/24 09:00 09/06/24 08:36 Aspirin 81 Mg Ec Tablet PO 81 mg DAILY RAFAELA Administration Atorvastatin Calcium 40 mg 09/05/24 09:00 09/06/24 08:35 Atorvastatin 40 Mg Tablet PO 40 mg DAILY RAFAELA Administration Cefepime HCl 1,000 mg 09/05/24 08:15 09/06/24 22:35 Cefepime 1,000 Mg Sdv IVP 1,000 mg Q12H RAFAELA Administration Protocol Clopidogrel Bisulfate 75 mg 09/05/24 09:00 09/06/24 08:35 Clopidogrel 75 Mg Tablet PO 75 mg DAILY RAFAELA Administration Famotidine 40 mg 09/04/24 18:00 09/06/24 18:11 Famotidine 20 Mg Tablet PO 40 mg BID RAFAELA Administration Gabapentin 600 mg 09/04/24 16:30 09/07/24 01:37 Gabapentin 300 Mg Capsule PO 600 mg Q8H RAFAELA Administration Sodium Chloride 1,000 mls @ 100 mls/hr 09/04/24 16:04 09/07/24 04:24 Sodium Chloride 0.9% IV 100 mls/hr .Q10H RAFAELA Administration Vancomycin HCl 1,000 mg/ 250 mls @ 250 mls/hr 09/04/24 19:30 09/06/24 19:48 Sodium Chloride IV Infused Q12H RAFAELA Infusion Insulin Glargine 24 unit 09/04/24 18:00 09/06/24 18:12 Insulin Glargine 100 Units/1 Ml SUBCUT 24 unit BID RAFAELA Administration Insulin Human Lispro 0 unit 09/04/24 18:00 09/06/24 22:35 Insulin Lispro 100 Unit/1 Ml SUBCUT 12 unit WM&BEDTIME RAFAELA Administration Protocol Losartan Potassium 12.5 mg 09/05/24 09:00 09/06/24 08:33 Losartan 50 Mg Tablet PO 12.5 mg DAILY RAFAELA Administration Ropinirole HCl 8 mg 09/04/24 18:00 09/06/24 18:11 Ropinirole 2 Mg Tablet PO 8 mg BID RAFAELA Administration PFSH Acute PFSH: Medical History Prepatellar bursitis, right knee Osteoarthritis of right knee Acute pain of right knee 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 BG well controlled with scheduled insulin -consistent carb diet as tolerated Parastomal hernia PETER (obstructive sleep apnea) History of bladder cancer Hx of intestinal obstruction Surgical History History of appendectomy History of cholecystectomy History of shoulder surgery History of urostomy History of esophageal hernia repair Family History Mother Thyroid disease Hypertension Father Hypertension Social History Smoking and tobacco/nicotine status: never used tobacco/nicotine Quit status (tobacco/nicotine): has quit using Year quit tobacco: 2009 Former quit date comment: previously 4 ppd Alcohol intake: former Substance/Drug Use: never Lives independently: Yes Household members: other Details: brother Marital status: / Number of children: 1 Number of grandchildren: 2 service: No Current occupational status: retired and 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 gender identity: Male Special jose carlos needs: No Agree to transfusion: Yes Vitals/I&O/Wt Last Vital Signs Temp 97.9 F 09/07/24 04:00 Pulse 69 09/07/24 04:00 Resp 17 09/07/24 04:00 BP 127/69 09/07/24 04:00 Pulse Ox 96 09/07/24 04:00 O2 Del Method Room Air 09/07/24 04:00 09/06/24 09/06/24 09/07/24 14:59 22:59 06:59 Intake Total 2210 / 2210 1970 / 4180 1000 / 5180 Output Total 1350 / 1350 2700 / 4050 1200 / 5250 Balance 860 / 860 -730 / 130 -200 / -70 Weight last 48 hrs Weight 234 lb Weight 232 lb Physical Exam Narrative: GENERAL: Patient is alert and oriented ?3 and in no acute distress. The following is a focused bilateral lower extremity exam. Accompanied by his sister. VASCULAR: Dorsalis pedis palpable bilaterally. Posterior tibial arteries palpable. Capillary refill time less than 3 seconds to the distal hallux bilaterally. Calf is supple and nontender proximally and distally. Mild edema to the right foot consistent with postoperative course. NEUROLOGICAL: Absent protective sensation bilateral foot. DERMATOLOGICAL: Previously documented wound right plantar midfoot is epithelialized. No open wounds at this time to the bilateral lower extremity. MUSCULOSKELETAL: Rocker-bottom foot deformity to the right foot secondary to Charcot. Data 09/06/24 06:35 09/06/24 06:35 A&P Assessment and plan (1) Charcot foot due to diabetes mellitus: (2) Right rocker bottom foot: (3) CKD stage 2 due to type 1 diabetes mellitus: (4) Osteomyelitis of right foot: Plan 73-year-old diabetic male with history of Charcot foot collapse to the right, wound formation and osteomyelitis to the right cuboid he is status post incision debridement down to bone cortex and bone culture done 06/06/2024. Has undergone 6 weeks of IV antibiotics via PICC line with [facility] and [facility]. Antibiotic regimen consisting of vancomycin with pharmacy dosing. Patient's wound is healed at today's evaluation, x-ray negative for further bony destruction or signs of active osteomyelitis at the right foot. Unless needed for any further antibiotic therapy unrelated to his foot the PICC line can be discontinued at this hospitalization prior to discharge. Recommend silicone bordered foam as protective dressing to the right plantar foot. Recommend Charcot restraint orthotic walker to the right lower extremity for offloading when weightbearing. Will follow-up in podiatry clinic 09/13/2024 at 10:30 AM. PDMP PDMP Reviewed: Not Reviewed Consult Attestations Medical Necessity Statement: Deferred to primary Coding Level of Care Code Acute Code for [facility] Fwd Diagnoses Charcot foot due to diabetes mellitus E11.610 Right rocker bottom foot Q66.81 CKD stage 2 due to type 1 diabetes mellitus E10.22; N18.2 Osteomyelitis of right foot, unspecified type M86.9 Osteomyelitis type: unspecified type
[2024-09-07 06:18] LABS: Glucose Point of Care 237 mg/dL (70-110)
[2024-09-07] MEDS: VANCOMYCIN ADD-Vantage 1,000 MG in 0.9% NaCl ADD-Vantage 250 ML 200 MG IV ×2 (06:30→19:49)
[2024-09-07] MEDS: insulin lispro 100 unit/1 mL SUBCUT ×4 (08:19→21:46)
[2024-09-07] MEDS: ropinirole 2 mg Tablet 8 MG PO ×2 (08:20→16:56)
[2024-09-07] MEDS: insulin glargine 100 units/1 mL 24 UNIT SUBCUT ×2 (08:20→16:56)
[2024-09-07] MEDS: losartan 50 mg Tablet 12.5 MG PO (08:20)
[2024-09-07] MEDS: atorvastatin 40 mg Tablet PO (08:21)
[2024-09-07] MEDS: famotidine 20 mg Tablet 40 MG PO ×2 (08:21→16:56)
[2024-09-07] MEDS: cefepime 1,000 mg SDV 1000 MG IVP ×2 (08:21→21:45)
[2024-09-07] MEDS: clopidogrel 75 mg Tablet PO (08:21)
[2024-09-07] MEDS: aspirin 81 mg EC Tablet PO (08:21)
--- NOTE | 2024-09-07 09:21 | P.PN_ITS ---
Subjective 2 Subjective: Seen this morning. Patient's left hand numbness has resolved. He is in good spirits and feels well. We are waiting for his urine culture. Vitals/I&O/Wt Last Vital Signs Temp 97.8 F 09/08/24 11:40 Pulse 76 09/08/24 11:40 Resp 15 09/08/24 11:40 BP 154/82 09/08/24 11:40 Pulse Ox 94 09/08/24 11:40 O2 Del Method Room Air 09/08/24 11:40 09/07/24 09/08/24 09/08/24 22:59 06:59 14:59 Intake Total 1730 / 2460 240 / 2700 723 / 723 Output Total 2600 / 4500 1800 / 6300 Balance -870 / -2040 -1560 / -3600 723 / 723 Weight last 48 hrs Weight 106.141 kg Weight 106.141 kg Physical Exam 2 Const: COMMON NORMALS: no acute distress and patient oriented x3 Resp: COMMON NORMALS: normal respiratory effort, No retractions, No use of accessory muscles and clear to auscultation bilaterally AUSCULTATION: clear to auscultation bilaterally Cardio: COMMON NORMALS: regular rate, regular rhythm, S1 normal heart sound present and S2 normal heart sound present RATE: regular rate RHYTHM: r egular rhythm HEART SOUNDS: S1 normal heart sound present and S2 normal heart sound present GI: COMMON NORMALS: Normal to inspection, nondistended, normoactive bowel sounds present and non-tender Extremity: COMMON NORMALS: no clubbing, cyanosis or edema (No edema bilateral lower extremities. Right foot not examined) Neuro: COMMON NORMALS: patient oriented x3 OTHER: Strength bilateral lower extremities equal and symmetrical. No focal neurological deficits. Left hand numbness improving Psych: COMMON NORMALS: mental status grossly normal Data 09/06/24 06:35 09/06/24 06:35 Micro: Microbiology 09/04/24 11:32 Urine Culture - Preliminary Urine,Voided Gram Negative Rods A&P Assessment and plan (1) Hypertension: (2) Coronary artery disease: (3) Dyslipidemia: (4) DM type 2 (diabetes mellitus, type 2): (5) GERD (gastroesophageal reflux disease): (6) CKD stage 2 due to type 1 diabetes mellitus: (7) Charcot foot due to diabetes mellitus: (8) Severe carpal tunnel syndrome of both wrists: (9) PETER (obstructive sleep apnea): (10) Numbness of left hand: (11) Dizziness: Plan #Dizziness, unclear etiology #Left hand numbness with history of bilateral severe carpal tunnel syndrome #History of brainstem hemorrhagic stroke #CKD stage II #Hyperglycemia #Poorly controlled diabetes #History of obstructive sleep apnea #History of bladder cancer status post urostomy #Possible UTI #Charcot foot, osteomyelitis status post bone debridement, positive for MRSA #Coronary disease with history of PCI times balloon angioplasty, stent ? Continue aspirin atorvastatin Plavix ? Patient received 15 units of lispro in ER. Placed on monitor was noted to sliding scale insulin ? Continue Lantus 24 units twice daily. Patient did not take his medication today. ? Hold home losartan. He is experiencing dizziness ? Check orthostatic vital signs ? Patient does have severe carpal tunnel syndrome but has not had surgery done yet. - Check carotid Dopplers ? Check urine culture, blood culture ? Continue vancomycin IV ? Continue Vanco trough ? Will continue dressing changes with Hydrofera Blue ? Place in cardiac telemetry ? Check EKG ? Placed on IV fluids normal saline 75 cc/h. Full code DVT prophylaxis: Heparin SQ twice daily 09/05/2024 dizziness has resolved blood culture, urine culture pending continue daily dressing changes with hydrophera blue is on 6 weeks IV vanc for foot infection stop IV fluids this AM left hand numbenss improving has a 7% bandemia on labs afebrile, no longer having chills if cultures neg by tomorrow, will consider dc home to continue current treatment possible UTI, await urine culture placed on zosyn continue in observation status 09/06/2024 Dizziness is resolved, orthostatic vitals are negative Patient completed 6 weeks of IV vancomycin for foot infection tomorrow. Consult podiatry. Bandemia has resolved. Urine culture positive for gram-negative rods greater than 100,000 colonies. Final urine culture is pending Continue cefepime. De-escalate once culture data is available. If it may be an ESBL we may decide to keep PICC line and send patient home for another 7 days of probably ertapenem however we will have to review culture data and then decide plan going forward. If UTI can be covered with oral antibiotics then PICC line will be removed tomorrow as long as that is okayed by podiatry. Left hand numbness has also almost resolved. Patient does have carpal tunnel syndrome. 09/07/2024 Patient's left hand numbness dizziness has resolved. He has completed IV vancomycin for 6 weeks total. Podiatry okay with stopping Vanco at this time. Podiatry also okay with taking out the PICC line. We are awaiting urine culture. If urine culture sensitivity shows that patient could go home on oral medication for UTI we will do that otherwise we will use existing PICC line and order IV antibiotics for him. I have called the lab and they had to subculture the culture. Awaiting results. Likely discharge tomorrow. PDMP PDMP Reviewed: Not Reviewed Attestations 2 Medical Necessity Statement*: Awaiting urine culture Diagnoses Primary hypertension I10 Hypertension type: primary hypertension Coronary artery disease I25.10 Dyslipidemia E78.5 DM type 2 (diabetes mellitus, type 2) E11.9 GERD (gastroesophageal reflux disease) K21.9 CKD stage 2 due to type 1 diabetes mellitus E10.22; N18.2 Charcot foot due to diabetes mellitus E11.610 Severe carpal tunnel syndrome of both wrists G56.03 PETER (obstructive sleep apnea) G47.33 Numbness of left hand R20.0 Dizziness R42
[2024-09-07 11:20] LABS: Glucose Point of Care 249 mg/dL (70-110)
[2024-09-07 16:51] LABS: Glucose Point of Care 253 mg/dL (70-110)
[2024-09-07 20:42] LABS: Glucose Point of Care 306 mg/dL (70-110)
[2024-09-08] VITALS (7 sets, daily range): BP systolic 146–154; BP diastolic 82–85; PULSE 76–100; RESP 15–18; TEMP 36.6–37; O2SAT 94–98
[2024-09-08] MEDS: gabapentin 300 mg Capsule 600 MG PO ×2 (00:13→08:15)
[2024-09-08 06:38] LABS: Glucose Point of Care 228 mg/dL (70-110)
[2024-09-08] MEDS: VANCOMYCIN ADD-Vantage 1,000 MG in 0.9% NaCl ADD-Vantage 250 ML 200 MG IV (08:14)
[2024-09-08] MEDS: clopidogrel 75 mg Tablet PO (08:15)
[2024-09-08] MEDS: losartan 50 mg Tablet 12.5 MG PO (08:15)
[2024-09-08] MEDS: atorvastatin 40 mg Tablet PO (08:15)
[2024-09-08] MEDS: insulin lispro 100 unit/1 mL SUBCUT ×2 (08:15→10:56)
[2024-09-08] MEDS: famotidine 20 mg Tablet 40 MG PO (08:15)
[2024-09-08] MEDS: aspirin 81 mg EC Tablet PO (08:15)
[2024-09-08] MEDS: ropinirole 2 mg Tablet 8 MG PO (08:15)
[2024-09-08] MEDS: cefepime 1,000 mg SDV 1000 MG IVP (08:16)
[2024-09-08] MEDS: insulin glargine 100 units/1 mL 24 UNIT SUBCUT (08:20)
[2024-09-08 10:51] LABS: Glucose Point of Care 277 mg/dL (70-110)
--- NOTE | 2024-09-08 11:43 | PM.PN ---
Subjective Subjective: Patient seen bedside, in good spirits. Denies any foot pain left or right. Tolerating regular diet. Anticipating going home. Vitals/I&O/Wt Last Vital Signs Temp 97.8 F 09/08/24 11:40 Pulse 76 09/08/24 11:40 Resp 15 09/08/24 11:40 BP 154/82 09/08/24 11:40 Pulse Ox 94 09/08/24 11:40 O2 Del Method Room Air 09/08/24 11:40 09/07/24 09/08/24 09/08/24 22:59 06:59 14:59 Intake Total 1730 / 2460 240 / 2700 723 / 723 Output Total 2600 / 4500 1800 / 6300 Balance -870 / -2040 -1560 / -3600 723 / 723 Weight last 48 hrs Weight 234 lb Weight 234 lb Physical Exam Narrative: GENERAL: Patient is alert and oriented ?3 and in no acute distress. The following is a focused bilateral lower extremity exam. Accompanied by his sister. VASCULAR: Dorsalis pedis palpable bilaterally. Posterior tibial arteries palpable. Capillary refill time less than 3 seconds to the distal hallux bilaterally. Calf is supple and nontender proximally and distally. Mild edema to the right foot consistent with postoperative course. NEUROLOGICAL: Absent protective sensation bilateral foot. DERMATOLOGICAL: Previously documented wound right plantar midfoot is epithelialized. No open wounds at this time to the bilateral lower extremity. MUSCULOSKELETAL: Rocker-bottom foot deformity to the right foot secondary to Charcot. Data 09/06/24 06:35 09/06/24 06:35 Micro: Microbiology 09/04/24 11:32 Urine Culture - Preliminary Urine,Voided Gram Negative Rods A&P Assessment and plan (1) Charcot foot due to diabetes mellitus: (2) Right rocker bottom foot: (3) CKD stage 2 due to type 1 diabetes mellitus: (4) Osteomyelitis of right foot: Plan 73-year-old diabetic male with history of Charcot foot collapse to the right, wound formation and osteomyelitis to the right cuboid he is status post incision debridement down to bone cortex and bone culture done 06/06/2024. Has undergone 6 weeks of IV antibiotics via PICC line with [facility] and [facility]. Antibiotic regimen consisting of vancomycin with pharmacy dosing. Patient's wound is healed at today's evaluation, x-ray negative for further bony destruction or signs of active osteomyelitis at the right foot. Unless needed for any further antibiotic therapy unrelated to his foot the PICC line can be discontinued at this hospitalization prior to discharge. Recommend silicone bordered foam as protective dressing to the right plantar foot. Recommend Charcot restraint orthotic walker to the right lower extremity for offloading when weightbearing. Weightbearing as tolerated with Charcot restraint orthotic walker to the right and diabetic shoe with custom insole to the left. Follow-up in podiatry clinic 09/13/2024 at 10:30 AM. PDMP PDMP Reviewed: Not Reviewed Attestations Medical Necessity Statement*: Deferred to primary Coding Level of Care Code Acute Code for [facility] Fwd Diagnoses Charcot foot due to diabetes mellitus E11.610 Right rocker bottom foot Q66.81 CKD stage 2 due to type 1 diabetes mellitus E10.22; N18.2 Osteomyelitis of right foot, unspecified type M86.9 Osteomyelitis type: unspecified type
--- NOTE | 2024-09-08 12:21 | P.DS_ITS ---
Discharge Providers Date of Admission: 09/04/24 15:31 Date of Discharge: September 07, 2024 Attending Provider at Admission: Shila Lizarraga MD Attending Provider at Discharge: Shila Lizarraga MD Primary Care Provider: Ivett Still MD Diagnoses at Discharge Discharge Diagnosis (1) Charcot foot due to diabetes mellitus: Status: Acute (2) Right rocker bottom foot: Status: Acute (3) CKD stage 2 due to type 1 diabetes mellitus: Status: Acute (4) Osteomyelitis of right foot: Status: Resolved Qualifiers: Osteomyelitis type: unspecified type Qualified Code(s): M86.9 - Osteomyelitis, unspecified Reason for Visit Reason for Visit: Dizzy Hospital Course Hospital Course Patient was admitted to the hospital for left hand numbness. He does have a history of severe bilateral carpal tunnel syndrome. Hand numbness was attributed to that. Also had a UTI for which she was hospitalized until urine culture was resulted. Patient had a PICC line from prior which was being used for vancomycin administration for right foot osteomyelitis. His plantar wound healed. PICC line was removed. He was also seen by podiatry in the hospital. Based on urine culture results antibiotic was chosen and patient was sent home in stable condition. Physical Exam Const: COMMON NORMALS: no acute distress and patient oriented x3 Resp: COMMON NORMALS: normal respiratory effort, No retractions, No use of accessory muscles and clear to auscultation bilaterally AUSCULTATION: clear to auscultation bilaterally Cardio: COMMON NORMALS: regular rate, regular rhythm, S1 normal heart sound present and S2 normal heart sound present RATE: regular rate RHYTHM: regular rhythm HEART SOUNDS: S1 normal heart sound present and S2 normal heart sound present GI: COMMON NORMALS: Normal to inspection, nondistended, normoactive bowel sounds present and non-tender Extremity: COMMON NORMALS: no clubbing, cyanosis or edema (No edema bilateral lower extremities. Right foot not examined) Neuro: COMMON NORMALS: patient oriented x3 OTHER: Strength bilateral lower extremities equal and symmetrical. No focal neuro logical deficits. Left hand numbness improving Psych: COMMON NORMALS: mental status grossly normal Discharge Data Studies Completed and Pending Completed Studies During Hospitalization Category Date Time Status CT head thrombolytic [id number] Stat Cat Scan 09/04/24 11:08 Completed XR foot RT min 3V* [id number] Routine Exams 09/06/24 19:03 Completed CV carotid duplex BI* [id number] Routine Ultrasound 09/04/24 15:58 Completed Pending at discharge Category Date Time Status Blood Culture Stat Lab 09/04/24 19:20 Results Urine Culture Stat Lab 09/04/24 11:32 Received Radiology Impressions Head CT 09/04/24 11:08 IMPRESSION: 1. No evidence of intracranial hemorrhage or mass effect. 2. Moderate small vessel changes with moderate parenchymal volume loss. 3. Intracranial vascular calcification. 4. No acute intracranial findings. Notified Jordy Arenas DO at 09/04/2024 11:25 AM. Foot X-Ray 09/06/24 19:03 IMPRESSION: Mid and hindfoot soft tissue swelling with Charcot arthropathy to the midfoot but no acute fracture. Laboratory Results WBC 5.67 10^3/uL (3.29-11.43) 09/06/24 06:35 RBC 4.13 10^6/uL (3.85-5.65) 09/06/24 06:35 Hgb 12.20 g/dL (11.27-16.99) 09/06/24 06:35 Hct 36.5 % (37-53) L 09/06/24 06:35 MCV 88.4 fl (82-101) 09/06/24 06:35 MCH 29.5 pg (27-33) 09/06/24 06:35 MCHC 33.4 g/dL (30-55) 09/06/24 06:35 RDW 14.0 % (12.1-15.1) 09/06/24 06:35 Plt Count 126 10^3/cmm (157-399) L 09/06/24 06:35 MPV 10.4 fL (7.4-10.4) 09/06/24 06:35 Neut % (Auto) 45.1 % 09/06/24 06:35 Lymph % (Auto) 33.0 % 09/06/24 06:35 [place] % (Auto) 15.0 % 09/06/24 06:35 Eos % (Auto) 5.8 % 09/06/24 06:35 Baso % (Auto) 0.9 % 09/06/24 06:35 Neut # (Auto) 2.56 10^3/uL (1.8-7.7) 09/06/24 06:35 Lymph # (Auto) 1.9 10^3/uL (0.8-4.8) 09/06/24 06:35 [place] # (Auto) 0.9 10^3/uL (0.2-0.9) 09/06/24 06:35 Eos # (Auto) 0.3 10^3/uL (0.0-0.8) 09/06/24 06:35 Baso # (Auto) 0.1 10^3/uL (0.0-0.1) 09/06/24 06:35 Nucleated RBC % (auto) 0 % 09/06/24 06:35 Total Counted 100 (0-100) 09/05/24 05:17 Atypical Lymphs % 7.0 % (0-5) H 09/05/24 05:17 Absolute Neutrophils 3.5 10^3/cmm (1.4-6.5) 09/05/24 05:17 Segmented Neutrophils 57 % 09/05/24 05:17 Band Neutrophils 7.0 % 09/05/24 05:17 Absolute Lymphocytes 1.2 10^3/cmm (1.2-3.4) 09/05/24 05:17 Lymphocytes (Manual) 14 % 09/05/24 05:17 Monocytes (Manual) 6.0 % 09/05/24 05:17 Absolute Monocytes 0.3 10^3/cmm (0.1-0.6) 09/05/24 05:17 Eosinophils (Manual) 4 % 09/05/24 05:17 Absolute Eosinophils 0.2 10^3/cmm (0.0-0.7) 09/05/24 05:17 Basophils (Manual) 0.0 % 09/05/24 05:17 Absolute Basophils 0.0 10^3/cmm (0.0-0.2) 09/05/24 05:17 Metamyelocytes 2.0 % 09/05/24 05:17 Myelocytes 3.0 % 09/05/24 05:17 Nucleated RBCs # 0.0 /100WBC 09/06/24 06:35 Platelet Estimate Decreased (Normal) 09/05/24 05:17 ESR 14 mm/hr (0-10) H 09/06/24 06:35 PT 15.70 SECONDS (12.1-14.9) H 09/04/24 11:37 INR 1.17 (0.8-1.2) 09/04/24 11:37 APTT 29.7 SECONDS (23.9-36.7) 09/04/24 11:37 Sodium 133 mmol/L (136-145) L 09/06/24 06:35 Potassium 4.3 mmol/L (3.5-5.1) 09/06/24 06:35 Chloride 104 mmol/L (98-107) 09/06/24 06:35 Carbon Dioxide 20 mmol/L (22-29) L 09/06/24 06:35 Anion Gap 13.3 (5-19) 09/06/24 06:35 BUN 20 mg/dL (8-23) 09/06/24 06:35 Creatinine 1.1 mg/dL (0.7-1.2) 09/06/24 06:35 GFR Calculation Not Reportable 09/06/24 06:35 Glucose 293 mg/dL (65-115) H 09/06/24 06:35 POC Glucose 237 mg/dL (70-110) H 09/07/24 06:15 Estimat Average Glucose 246 09/04/24 11:37 Hemoglobin A1c 10.2 % (4.0-6.0) H 09/04/24 11:37 Calculated Osmolality 289 mOsm/kg (285-295) 09/06/24 06:35 Calcium 8.4 mg/dL (8.5-10.5) L 09/06/24 06:35 Phosphorus 3.2 mg/dL (2.5-4.5) 09/05/24 05:17 Magnesium 1.6 mg/dL (1.7-2.3) L 09/05/24 05:17 Total Bilirubin 0.3 mg/dL (0.15-1.2) 09/06/24 06:35 AST 13 U/L (0-40) 09/06/24 06:35 ALT 15 U/L (0-41) 09/06/24 06:35 Alkaline Phosphatase 92 U/L (40-130) 09/06/24 06:35 C-Reactive Protein 13.9 mg/L (0.0-4.9) H 09/06/24 06:35 Total Protein 5.9 g/dL (6.6-8.7) L 09/06/24 06:35 Albumin 3.1 g/dL (3.5-5.2) L 09/06/24 06:35 Globulin 2.8 g/dL (1.3-4.6) 09/06/24 06:35 Urine Color Yellow (Yellow) 09/04/24 11:32 Urine Appearance Clear (CLEAR) 09/04/24 11:32 Urine pH 7.5 (5-7) 09/04/24 11:32 Ur Specific [place] 1.018 (1.005-1.030) 09/04/24 11:32 Urine Protein 2+ (Negative) A 09/04/24 11:32 Urine Glucose (UA) 3+ (Normal) H 09/04/24 11:32 Urine Ketones Negative (Negative) 09/04/24 11:32 Urine Blood Trace (Negative) A 09/04/24 11:32 Urine Nitrate Negative (Negative) 09/04/24 11:32 Urine Bilirubin Negative (Negative) 09/04/24 11:32 Urine Urobilinogen 0.2 mg/dL (Negative) 09/04/24 11:32 Ur Leukocyte Esterase Trace (Negative) A 09/04/24 11:32 Urine RBC 0-2 /hpf (0-2) 09/04/24 11:32 Urine WBC 11-20 /hpf (0-5) H 09/04/24 11:32 Ur Squamous Epith Cells 0-5 /hpf (0-5) 09/04/24 11:32 Amorphous Sediment Not Reportable 09/04/24 11:32 Urine Bacteria 1+ /hpf (NONE) H 09/04/24 11:32 Hyaline Casts 4.11 /lpf 09/04/24 11:32 Vancomycin Trough 17.2 ug/mL (10-15) H 09/06/24 06:35 Urine Opiates Screen Negative ng/mL (Negative) 09/04/24 11:32 Ur Barbiturates Screen Negative ng/mL (Negative) 09/04/24 11:32 Ur Phencyclidine Scrn Negative ng/mL (Negative) 09/04/24 11:32 Ur Amphetamines Screen Negative ng/mL (Negative) 09/04/24 11:32 U Benzodiazepines Scrn Negative ng/mL (Negative) 09/04/24 11:32 Urine Cocaine Screen Negative ng/mL (Negative) 09/04/24 11:32 U Marijuana (THC) Screen Negative ng/mL (Negative) 09/04/24 11:32 Serum Ketones Negative (Negative) 09/04/24 11:37 Influenza A (PCR) Negative (Negative) 09/04/24 12:27 Influenza Type B (PCR) Negative (Negative) 09/04/24 12:27 RSV (PCR) Negative (Negative) 09/04/24 12:27 SARS-CoV-2 (PCR) Negative (Negative) 09/04/24 12:27 Vitals Last Vital Signs Temp 97.6 F 09/07/24 07:37 Pulse 71 09/07/24 07:37 Resp 17 09/07/24 07:37 BP 152/82 09/07/24 08:20 Pulse Ox 96 09/07/24 07:37 O2 Del Method Room Air 09/07/24 07:37 Discharge Plan Discharge Patient Disposition: Home Health Service Condition: Stable Prescriptions: Continued (DME) FreeStyle Jenae 3 Sensor Device See Rx Instructions .MEDSUPPLY Qty: 2 12RF Rx Instructions: Change every 14 days; Use as directed to check blood sugar mupirocin 2 % ointment 1 applic topical BID Qty: 15 0RF albuterol sulfate 90 mcg/actuation HFA aerosol inhaler 2 inh INHALATION Q4H PRN (Reason: shortness of breath or wheezing) Qty: 18 11RF (DME) OneTouch Ultra Test Strip See Rx Instructions .Route Qty: 50 2RF Rx Instructions: As directed atorvastatin [Lipitor] 40 mg tablet 40 mg PO DAILY Qty: 90 1RF (DME) NENANA boot See Rx Instructions .Route .MEDSUPPLY Qty: 1 0RF Rx Instructions: As directed by [facility] ropinirole 4 mg tablet 8 mg PO BID Qty: 180 0RF losartan 25 mg tablet 12.5 mg PO DAILY Qty: 30 1RF No Action insulin glargine [Lantus Solostar U-100 Insulin] 100 unit/mL (3 mL) insulin pen 65 unit SUBCUT BID Qty: 15 0RF insulin lispro [Humalog KwikPen Insulin] 100 unit/mL insulin pen 15 unit SUBCUT TID Qty: 15 0RF (DME) FreeStyle Jenae 2 Sensor Kit See Rx Instructions .MEDSUPPLY Qty: 2 11RF Rx Instructions: Change every 14 days; Use as directed to check blood sugar (DME) FreeStyle Jenae 2 [place] Misc See Rx Instructions .MEDSUPPLY Qty: 1 0RF Rx Instructions: Use as directed to check blood sugar aspirin 81 mg tablet,delayed release (DR/EC) 81 mg PO DAILY Qty: 90 0RF clopidogrel 75 mg tablet 75 mg PO DAILY 30 Days Qty: 90 0RF famotidine 40 mg tablet 40 mg PO BID Qty: 180 0RF gabapentin 600 mg tablet 600 mg PO Q8H Qty: 270 0RF Discharge Orders: Discharge Order (Routine); Ordered 09/08/24 Ordered By: Shila Lizarraga Referrals: [facility] [Outside] Noble Day DPM [Physician, Podiatry] - 09/13/24 Ivett Still MD [Primary Care Provider, Family Practice] - 09/12/24 11:20 am Referral Note: Discharge Diet: Cardiac and Diabetic Discharge Activity: Limit activity as instructed Patient Instructions: Ciprofloxacin (By mouth), Urinary Tract Infection in Men (DC), Catheter-associated Urinary Tract Infection (DC), Opioid Safety Discharge Attestations Time Spent in Discharge Care*: less than 30 min Status at Discharge: Cognitive status at discharge: cognitively intact , Behavioral status at discharge: cooperative , Quality Metrics Clinical Quality Measures [ No reported AMI, CVA or VTE this stay] Coding Level of Care Code Acute Code for Chg Fwd Diagnoses Charcot foot due to diabetes mellitus E11.610 Right rocker bottom foot Q66.81 CKD stage 2 due to type 1 diabetes mellitus E10.22; N18.2 Osteomyelitis of right foot, unspecified type M86.9 Osteomyelitis type: unspecified type
--- NOTE | 2024-09-08 14:40 | PC.NURSE ---
Discharge Note Patient discharged to home via private vehicle accompanied by brother. Discharge instructions reviewed with patient and/or credit and collections representative. Mobile pharmacy medications and/or prescriptions provided. Belongings/home medications returned.
--- NOTE | 2024-09-08 14:40 | PC.NURSE ---
Removed patient's Picc line in his right upper arm. Applied 2x2 and covered with tegaderm.
== END 2024-09-08 14:51 | disposition home health service (06) ==
LOC: ER 11:33 → MEDSURG 15:32
PROVIDERS: Podiatrist Foot & Ankle Surgery; Admitting Provider Internal Medicine; Emergency Provider Family Medicine; PCP Family Medicine; Visit Provider Internal Medicine
DX: E11.610 Type 2 diabetes mellitus with diabetic neuropathic arthropathy (principal); Q66.81 Congenital vertical talus deformity, right foot; M86.071 Acute hematogenous osteomyelitis, right ankle and foot; Z79.82 Long term (current) use of aspirin; Z79.4 Long term (current) use of insulin; E11.22 Type 2 diabetes mellitus with diabetic chronic kidney disease; I12.9 Hypertensive chronic kidney disease with stage 1 through stage 4 chronic kidney disease, or unspecified chronic kidney disease; N18.2 Chronic kidney disease, stage 2 (mild); G47.33 Obstructive sleep apnea (adult) (pediatric); E66.9 Obesity, unspecified; Z68.31 Body mass index [BMI] 31.0-31.9, adult; Z85.51 Personal history of malignant neoplasm of bladder; Z87.891 Personal history of nicotine dependence; G56.03 Carpal tunnel syndrome, bilateral upper limbs; N39.0 Urinary tract infection, site not specified; R42 Dizziness and giddiness; Z86.73 Personal history of transient ischemic attack (TIA), and cerebral infarction without residual deficits; E11.65 Type 2 diabetes mellitus with hyperglycemia; B95.62 Methicillin resistant Staphylococcus aureus infection as the cause of diseases classified elsewhere; I25.10 Atherosclerotic heart disease of native coronary artery without angina pectoris; Z95.5 Presence of coronary angioplasty implant and graft; Z95.820 Peripheral vascular angioplasty status with implants and grafts
CPT/HCPCS: 36415; 36416; 70450; 73630; 80048; 80053; 80202; 80306; 81001; 82009; 82962; 83036; 83735; 84100; 85007; 85025; 85610; 85651; 85730; 86140; 87040; 87077; 87086; 87186; 87637; 93005; 93880; 96365; 96372; 96375; 99285; G0378; J0692; J0696; J1815; J3370; J7030; J7050; J9999

== ENCOUNTER → 2024-09-18 07:35 | Outpatient (BNVA) | payer MEDICARE, MEDICAID, SELFPAY | PROVIDERS: PCP Family Medicine; Visit Provider Podiatrist Foot & Ankle Surgery | DX: E11.610 Type 2 diabetes mellitus with diabetic neuropathic arthropathy (principal); E11.69 Type 2 diabetes mellitus with other specified complication; L97.514 Non-pressure chronic ulcer of other part of right foot with necrosis of bone; Q66.81 Congenital vertical talus deformity, right foot; Z79.4 Long term (current) use of insulin | CPT/HCPCS: 99213 ==

== ENCOUNTER 2024-09-20 13:51 | Emergency (ER) | payer MEDICARE, MEDICAID, SELFPAY ==
--- OUTSIDE RECORDS SUMMARY | 2024-01-15 04:00 | XMS_ITS ---
Author Organization [facility] Address [address] [place] [address] Care Team Providers Care Osteologist Name Role Phone Lexx Dalal Primary Care Provider Rigo Herron Unavailable [phone] LEXX DALAL MD Unavailable Unavaila ble Migration, Provider Unavailable Unavailable REASON FOR VISIT [facility] [place] Encounters Encounter Location Date Provider Diagnosis Migrated_Facility 0 0 01/15/2024 Provider Migration Plan Of Treatment No Information Progress Notes * Cole TRONCOSODOB:1950 (74 yo M)Acc No.[id number]:01/15/2024 Patient: Cole LEE :1950 A ge:73 Y S ex:Male Address:[address] [place] [phone] Subjective: * Chief Complaints: * E MR-Regulo * Medical History: * Surgical History: * Hospitalization/Major Diagno stic Procedure: * Medications: Objective: * Vitals: * Physical Examination: Assessment: Plan: * Treatment: * Procedure Codes: * * Date:
--- OUTSIDE RECORDS SUMMARY | 2024-01-16 04:00 | XMS_ITS ---
Author Organization [facility] Address [address] [place] [address] Care Team Providers Care Laborer Wood Preserving Plant Name Role Phone Lexx Dalal Primary Care Provider [phone] Rigo Herron Unavailable [phone] LEXX DALAL MD Unavailable Unavaila ble Migration, Provider Unavailable Unavailable Allergies Allergen (clinical drug ingredient) Drug/Non Drug Allergy documented on EMR Reaction Allergy Type Onset Date Status Penicillin itching Drug Allergy Active REASON FOR VISIT EMR-[facility] Encounters Encounter Location Date Provider Diagnosis Migrated_Facility 0 0 01/16/2024 Provider Migration Plan Of Treatment No Information Progress Notes * TRONCOSOColeDOB:1950 (74 yo M)Acc No.[id number]:01/16/2024 Patient: Cole LEE :1950 A ge:73 Y S ex:Male Address:[address] [place] [phone] Subjective: * Chief Complaints: * E MR-Regulo * Medical History: * Surgical History: * Hospitalization/Major Diagno stic Procedure: * Medications: * Allergies: P enicillin: itching - Allergy Objective: * Vitals: * Physical Examination: Assessment: Plan: * Treatment: * Procedure Codes: * * Date:
--- OUTSIDE RECORDS SUMMARY | 2024-09-20 13:59 | XMS_ITS | Clinical Summary ---
Author Organization [facility] Address [address] [place] [address] Phone Care Team Providers Care Relief Map Modeler Name Role Phone Non-Staff, Physician Primary Care Provider Unava ilable Allergies Active Allergy Reactions Criticality Noted Date Comments Penicillins Itching Medium 12/23/2012 Medications metoprolol succinate (TOPROL XL) 25 mg Oral Tb24 Take 25 mg by mouth daily. Active diphenhydrAMIN E (BENADRYL) 25 mg Oral Tab Take 50 mg by mouth every 2 hours as needed. Hives Active citalopram (CELEXA) 40 mg Oral tablet Take 40 mg by mouth daily. Active HYDROcodone-ac etaminophen (NORCO) 10-325 mg Oral Tab Take 1 to 2 tablets by mouth every 4 to 6 hours as needed. No more than 9 tablets per day 3 Active gabapentin (NEURONTIN) 600 mg Oral tablet Take 600 mg by mouth 3 times daily. Active cefepime (MAXIPIME) 2000 mg Piggyback Inject 2,000 mg by intraveous injection every 12 hours. 4 Active insulin aspart (NOVOLOG) 100 unit/mL Solution Per sliding scale 1 Pen(s) 4 Active sodium chloride 0.9 % Syringe Inject 10 mL by intraveous injection 2 times daily. 4 Active VANCOMYCIN CONSULT TO PHARMACY 1 Each by See Admin Instructions route see administration instructions. 4 Active pantoprazole (PROTONIX) 40 mg Tablet, Delayed Release (E.C.) Take 1 Tab by mouth daily before breakfast. 4 Active ciprofloxacin in dextrose 5% (CIPRO) 400 mg/200 mL Piggyback Inject 200 mL by intraveous injection every 24 hours. 4 Active Active Problems Problem Noted Date Diagnosed Date Obesity (BMI 30.0-34.9) 10/14/2013 Abscess 10/14/2013 Anemia 10/13/2013 Bacteremia 10/13/2013 Sepsis 10/12/2013 ARF (acute renal failure) 10/12/2013 Metabolic acidosis 10/12/2013 Acute Respiratory Failure 10/12/2013 Shock 10/11/2013 Small bowel obstruction 12/24/2012 Small bowel obstruction 02/24/2009 Family History Medical History Relation Name Comments Other Brother had meningitis in childhood & has always been sickly Healthy Daughter Healthy Father Hypertension Mother Other Sister 1 meningitis as i nfant - vegetable for 50 years Healthy Sister 2 Relation Name Status Comments Brother Alive Daughter Alive Father Mother Alive Sister 1 Sister 2 Alive Social History Tobacco Use Types Packs/Day Years Used Date Smoking Tobacco: Former Cigarettes 2 40 1 04/27/1967 - 02/25/2008 Alcohol Use Standard Drinks/Week Comments Yes 0 (1 standard drink = 0.6 oz pure alcohol) Hx of pretty heavy intake, None for past 6 months Sex and Gender Information Value Date Recorded Sex Assigned at Not on file 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 Gender Identity Not on file Sexual Orientation Not on file Last Filed Vital Signs Vital Sign Reading Time Taken Comments Blood Pressure 107/67 10/16/2013 3:37 PM CDT Pulse 78 10/16/2013 3:37 PM CDT Temperature 36.8 C (98.2 F) 10/16/2013 3:37 PM CDT Respiratory Rate 16 10/16/2013 3:37 PM CDT Oxygen Saturation 95% 10/16/2013 3:37 PM CDT Inhaled Oxygen Concentration - - Weight 115.8 kg (255 lb 4.8 oz) 014 12:30 AM CDT Height 185.4 cm (6' 1 ) 10/11/2013 3:19 AM CDT Body Mass Index 33.68 10/11/2013 3:19 AM CDT Plan of Treatment Health Maintenance Due Date Last Done Comments DTAP/TDAP/TD VACCINES (1 - Tdap) 1969 COLORECTAL SCREENING 09/14/1995 Colorectal Cancer Screening 09/14/1995 FIT-DNA Q 3 years 09/14/1995 FIT/FOBT Q 1 year 09/14/1995 Flex Sig/CT Colonography Q 5 years 09/14/1995 PNEUMOCOCCAL VACCINE 50+ YEARS (1 of 1 - PCV) 09/14/19 ZOSTER VACCINE (1 of 2) 2000 INFLUENZA VACCINE (#1) 2023 RSV VACCINE (60+ or ) (1 - 1-dose 75+ series) 2025 Insurance MEDICAID [place] PART [place] B Advance Directives For more information, please contact: [phone] * Full Code (Latest Code Status on File) Date Activated Date Inactivated Comments 10/11/2013 5:11 AM 10/16/2013 11:26 PM * Full Code Date Activated Date Inactivated Comments 12/23/2012 10:30 PM 12/26/2012 4:26 PM * Full Code Date Activated Date Inactivated Comments 02/24/2009 5:20 PM 03/02/2009 4:01 PM Care Teams Relief Map Modeler Relationship Specialty Start Date End Date Non-Staff, Physician NO ADDRESS ON FILE PCP - General 12/23/12
--- OUTSIDE RECORDS SUMMARY | 2024-09-20 13:59 | XMS_ITS | Encounter Summary ---
Author Organization [facility] Address 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
--- OUTSIDE RECORDS SUMMARY | 2024-09-20 13:59 | XMS_ITS | Patient Health Record ---
Author Organization [facility] Address [address] [place] [address] Care Team Providers Care Zoning Administrator Name Role Phone Lexx Dalal Primary Care Provider Rigo Herron Unavailable [phone] LEXX DALAL MD Unavailable Unavaila ble Migration, Provider Unavailable Unavailable Allergies Allergen (clinical drug ingredient) Drug/Non Drug Allergy documented on EMR Reaction Allergy Type Onset Date Status Penicillin itching Drug Allergy Active Reason For Referral No Information Medications Medication SIG (Take, Route, Frequency, Duration) Notes Start Date End Date Status True Metrix Air Glucose Meter w/Device use to read subq 4 times daily for 30 days Active TRUEplus Lancets 28G - as directed for 30 days Active True Metrix Level 1 Low use to brooke In Vi tro for 30 days Active rOPINIRole HCl 4 MG 2 tablets Orally BID for 90 days Active Janumet XR 50-1000 MG 2 tablets with nick chaya meal Orally Once a day for 30 days 11/12/2022 Active Levemir FlexPen 100 UNIT/ML 70 units Subcutaneous BID for 30 days Active Social History Tobacco Use: Social History Observation Description Date Details (start date - stop date) Never Smoker NA - NA xTobacco Use/Smoking Question Answer Notes Are you a nonsmoker Alcohol Screen (Audit-C) Question Answer Notes Did you have a drink containing alcohol in the p ast year? 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) Active confirmed Problem 909389587 Other artificial openings of gastrointestinal tract status (Z93.4) Active confirmed Problem 68013807 Chronic fatigue (R53.82) Active confirmed Problem 194327629115 Type 2 diabetes mellitus with diabetic neuropathic arthropathy, without long-term current use of insulin (E11.610) Active confirmed Problem 748108632 Tear of right supraspinatus tendon (M75.101) Active confirmed Problem 065714084 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) Active confirmed Encounters Encounter Location Date Provider Diagnosis Migrated_Facility 0 0 01/15/2024 Provider Migration Migrated_Facility 0 0 01/16/2024 Provider Migration [facility] [address] [place] [id number] 10/14/2023 Rigo Herron Plan Of Treatment No Information Insurance Providers Payer Name Payer Address Payer Phone Subscriber Number Group Number Insured Name Patient Relationship to Insured Coverage Start Date Coverage End Date NOT IN NETWORK - UHC Medicare Dual Complete HMO [address] [address] [place] [address] [phone] [id number] Cole Troncoso Self - patient is the insured Medications Administered Medication Instructions Date of Administration Dosage Notes BUPivacaine HCl 01/05/2023 1 mL DEPO-Medrol 01/05/2023 80 mg Medical (General) History Medical History History ICD Code bladder removal carsinoma of bladder urostomy gallbladder removed appendix removed broken right arm right foot broken dehydration Surgical History Surgery Date(Month/Year) L foot surgery 12/2022 bladder urostomy gallbladder removal Hospitalization History Reason Date(Month/Year) bowel obstruction 3 months ago
--- OUTSIDE RECORDS SUMMARY | 2024-09-20 13:59 | XMS_ITS | Encounter Summary ---
Author Organization [employer] Address 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 Gender Identity Not on file Sexual Orientation Not on file documented as of this encounter Plan of Treatment Not on file documented as of this encounter Procedures Procedure Name Priority Date/Time Associated Diagnosis Comments CT ABDOMEN W WO CONT PELVIS W CONT Timed Study 12/28/2007 12:53 PM CDT BASIC METABOLIC PANEL Routine 12/27/2007 2:45 PM CDT documented in this encounter Results * CT ABDOMEN W WO CONT PELVIS W CONT (12/28/2007 12:53 PM CDT) Anatomical Region Laterality Modality Abdomen Other 12/28/2007 12:5 3 PM CDT Narrative 12/28/2007 2:00 PM CDT [address] [address] Admit Date: 12/27/2007 COLE TRONCOSO Sex: M Admit Prov: CASTRO RAZA Date: 1950 Primary Care Prov: CMRN: [id number] Room: [facility]: [id number] IMAGING SERVICES Ordering Prov: N/A Accession Number: [id number] Interpretation EXAM: CT OF THE ABDOMEN WITH AND WITHOUT INTRAVENOUS CONTRAST AND CT OF THE PELVIS WITH INTRAVENOUS CONTRAST, 12/28/2007 History: Bladder cancer. Patient is status post cystectomy. Technique: CT of the abdomen is performed with and without contrast and CT of the pelvis is performed with intravenous contrast. Spiral imaging is performed from above the diaphragm to below the symphysis pubis. Images are reconstructed in the axial plane at 5 mm. Lung, liver, soft tissue and bone windows are reviewed. Findings: The lung bases are clear. The liver, spleen, pancreas, adrenal glands, and kidneys are unremarkable. There is no hydronephrosis. There is no bile duct dilatation. Postop changes are seen status post cystectomy and status post ileal conduit. Ileal conduit extends into an ostomy in the right lower quadrant where there is herniation of bowel. No bowel obstruction or acute inflammatory process is associated with the ostomy or ileal conduit. Multiple surgical clips are seen in the pelvis. No mass or adenopathy is seen. There is no evidence of metastatic disease. Impression: Status post cystectomy with ileal conduit creation in the right lower quadrant. There is herniation of small bowel noted at the level of the ileal conduit. No bowel obstruction or acute inflammatory process is associated with the ostomy or ileal conduit. CT of the abdomen and pelvis is otherwise negative. There is no acute-appearing process. There is no evidence of metastatic disease. . Dictated by: TESFAYE RICHARDSON 12/28/2007 13:21 Electronically signed by: TESFAYE RICHARDSON 12/28/2007 13:59 Transcribed: 12/28/2007 13:34 DKT Procedure Note Tesfaye Richardson - 12/28/[address] [address] Admit Date: 12/27/2007 COLE TRONCOSO Sex: M Admit Prov: CASTRO RAZA Date: 1950 Primary Care Prov: CMRN: [id number] Room: [facility] SSN: [id number] IMAGING SERVICES Ordering Prov: N/A Interpretation EXAM: CT OF THE ABDOMEN WITH AND WITHOUT INTRAVENOUS CONTRAST AND CTOF THE PELVIS WITH INTRAVENOUS CONTRAST, 12/28/2007 History: Bladder cancer. Patient is status post cystectomy. Technique: CT of the abdomen is performed with and without contrastand CT of the pelvis is performed with intravenous contrast. Spiral imagingis performed from above the diaphragm to below the symphysis pubis.Images are reconstructed in the axial plane at 5 mm. Lung, liver, soft tissueand bone windows are reviewed. Findings: The lung bases are clear. The liver, spleen, pancreas,adrenal glands, and kidneys are unremarkable. There is no hydronephrosis.There is no bile duct dilatation. Postop changes are seen status postcystectomy and status post ileal conduit. Ileal conduit extends into an ostomy inthe right lower quadrant where there is herniation of bowel. No bowel obstruction or acute inflammatory process is associated with theostomy or ileal conduit. Multiple surgical clips are seen in the pelvis. Nomass or adenopathy is seen. There is no evidence of metastatic disease. Impression: Status post cystectomy with ileal conduit creation in the rightlower quadrant. There is herniation of small bowel noted at the level ofthe ileal conduit. No bowel obstruction or acute inflammatory processis associated with the ostomy or ileal conduit. CT of the abdomen and pelvis is otherwise negative. There is no acute-appearing process. There is no evidence of metastatic disease. . Dictated by: TESFAYE RICHARDSON 12/28/2007 13:21 Electronically signed by: TESFAYE RICHARDSON 12/28/2007 13:59 Transcribed: 12/28/2007 13:34 DKT Castro Raza MD CT ORDERABLES Final Result * (ABNORMAL) BASIC METABOLIC PANEL (12/27/2007 2:45 PM CDT) CHLORIDE 104 96 - 108 mmol/L [facility] BUN 10 6 - 20 mg/dL [facility] CALCIUM 9.3 8.6 - 10.2 mg/dL [facility] SODIUM 138 135 - 145 mmol/L [facility] GLUCOSE 116(H) 65 - 99 mg/dL [facility] CO2 25 22 - 30 mmol/L [facility] POTASSIUM 3.6 3.5 - 4.9 mmol/L [facility] CREATININE 0.84 0.67 - 1.17 mg/dL [facility] GFR, >60 >=60 mL/min/1. 7 sq meter [facility] GFR >60 >=60 mL/min/1. 7 sq meter [facility] Comment: Modification of Diet in Renal Disease (MDRD) study formula. Estimated GFR rate interpretative information for both Americans and non- Americans is available on the [facility] Intranet at: [email or web address] Select: Lab Policies and Procedures Select: Reference Ranges - GFR Blood specimen (specimen) 12/27/2007 2:45 PM CDT 12/27/2007 2:47 PM CDT Castro Raza MD CHEMISTRY ORDERABLES Edited INTERFACE SYSTEM Refer to clinic/hospital department [facility] CLIA# [id number] [address] [place] [address] documented in this encounter Visit Diagnoses Diagnosis Malignant neoplasm of bladder, part unspecified (CMS/HCC) Malignant neoplasm of bladder, part unspecified documented in this encounter Care Teams Marketing Communications Leader Relationship Specialty Start Date End Date Leonardo Etienne MD [address] [place] [id number] PCP - General 10/19/14 12/06/23 documented as of this encounter
--- OUTSIDE RECORDS SUMMARY | 2024-09-20 13:59 | XMS_ITS | Encounter Summary ---
Author Organization [employer] Address [address] [place] [address] Care Team Providers Care Rail Filler Name Role Phone Unavailable Primary Care Provider Unavailabl e Encounter Details Date Type Department Care Team (Late st Contact Info) Description 09/12/2024 External Device Data [facility] Provider, Abstract NO ADDRESS ON FILE Social History Tobacco Use Types Packs/Day Years Used Date Smoking Tobacco: Former Cigarettes Q uit: 02/25/2008 Alcohol Use Standard Drinks/Week Comments Yes 0 (1 standard drink = 0.6 oz pur e alcohol) Feeling Safe Answer Date Recorded Are you in a relationship wi th someone who hurts you emotionally and/or physically? 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
--- OUTSIDE RECORDS SUMMARY | 2024-09-20 14:00 | XMS_ITS | Clinical Summary ---
Author Organization [facility] Address [address] [place] [address] Phone Care Team Providers Care Sign Writer Hand Name Role Phone Unavailable Primary Care Provider Unavailabl e Allergies No known active allergies Medications rOPINIRole (REQUIP) 4 mg Tablet Take 4 mg by mouth 4 times daily. Active gabapentin (NEURONTIN) 300 mg capsule Take 2 Capsules (600 mg) by mouth every 8 hours. 1 Capsule 4 Active metoprolol succinate (TOPROL XL) 25 mg Extended Release 24 hour tablet Take 0.5 Tablets (12.5 mg) by mouth daily. 30 Tablet 12/06/2023 6:47 PM CDT 4 Active HYDROcodone-vielka taminophen (NORCO) 5-325 mg tabletIndicatio ns:Subarachnoid hemorrhage (CMS/HCC),Close d fracture of nasal bone, initial encounter,Fall from standing, initial encounter Take 1 Tablet by mouth every 4 hours as needed for Pain, Moderate. Max Daily Amount: 6 Tablets 5 Active insulin detemir U-100 (LEVEMIR) 100 unit/mL pen syringe Inject 20 Units by subcutaneous injection 2 times daily. 5 Active insulin lispro (HumaLOG,ADMELO G) 100 unit/mL pen syringe Inject 0-12 Units by subcutaneous injection 3 times daily with meals. 5 Active Active Problems Problem Noted Date Diagnosed Date Closed fracture of maxillary sinus 06/14/2024 Closed fracture of nasal bones 06/14/2024 Traumatic subdural hematoma with loss of consciousness of 30 minutes or less 06/13/2024 COPD (chronic obstructive pulmonary disease) Benign hypertension 06/13/2024 Hyperlipidemia 06/13/2024 Fracture of right side of maxilla 06/13/2024 CKD (chronic kidney disease) 06/13/2024 Subarachnoid hemorrhage 06/13/2024 Subdural hemorrhage 06/13/2024 Fall from standing 06/13/2024 Adverse reaction to antiplatelet agent JULY (acute kidney injury) 12/05/2023 Troponin level elevated 12/04/2023 RLS (restless legs syndrome) 12/04/2023 Presence of urostomy 12/04/2023 History of total cystectomy 12/04/2023 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 a letter was mailed out for patient to call to reschedule.) 08/10/2024 External Device Data [facility] Provider, Abstract 08/09/2024 External Device Data [facility] Provider, Abstract 08/08/2024 External Device Data [facility] Provider, Abstract 08/07/2024 Telephone [facility] [address] [place] [phone] Becky Heath (Attempted to contact patient about rescheduling appointment that was missed from March a voicemail was left for patient to return call to reschedule appointment) 07/18/2024 External Device Data [facility] Provider, Abstract 06/28/2024 Telephone [facility] [address] [place] [address] Alex Yeboah NP Documentation Only 06/22/2024 Orders Only [facility] [address] [place] [address] Provider, Abstract from Last 3 Months Immunizations Immunization Administration Dates Next Due (PNEUMOVAX 23)(50 YRS UP) PN EUMOCOCCAL POLYSACCHARIDE (PPV23) 0.5 ML, IM 12/14/2017,07/02/2017 INFLUENZA VACCINE QUADRIVALENT 6 MOS UP PF IM ,03/13/2018 Family History Medical History Relation Name Comments Other Brother 1 had meningitis in childhood & has always been sickly Healthy Daughter 1 Healthy Father Hypertension Mother Other Sister 1 meningitis as i nfant - vegetable for 50 years Healthy Sister 2 Relation Name Status Comments Brother 1 Brother 2 Alive Daughter 1 Daughter 2 Alive Father Mother Alive Sister 1 Sister 2 Sister 3 Sister 4 Alive Social History Tobacco Use Types Packs/Day [...] on file 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 Gender Identity Not on file Sexual Orientation Not on file Last Filed Vital Signs Vital Sign Reading Time Taken Comments Blood Pressure 115/74 06/19/2024 11:52 AM CDT Pulse 77 06/19/2024 11:52 AM CDT Temperature 36.7 C (98 F) 06/19/2024 11:52 AM CDT Respiratory Rate 18 06/19/2024 11:5 2 AM CDT Oxygen Saturation 95% 06/19/2024 11: 52 AM CDT Inhaled Oxygen Concentration - - Weight 101.6 kg (223 lb 15.8 oz) 06/16/2024 5:00 PM CDT Height 182.9 cm (6') 06/13/2024 1:45 AM CDT Body Mass Index 30.38 06/13/2024 1:45 AM CDT Plan of Treatment Health Maintenance Due Date Last Done Comments DIABETES ANNUAL FOOT EXAM 1968 DIABETES ANNUAL RETINAL EXAM 1968 DIABETES HBA1C Q 6 MONTHS 1968 DIABETES MICROALBUMIN ANNUAL SCREEN 1968 LDL CHOLESTEROL ANNUAL 1968 DTAP/TDAP/TD VACCINES (1 - Tdap) 1969 COLORECTAL SCREENING 09/14/1995 Colorectal Cancer Screening 09/14/1995 FIT-DNA Q 3 years 09/14/1995 FIT/FOBT Q 1 year 09/14/1995 Flex Sig/CT Colonography Q 5 years 09/14/1995 ZOSTER VACCINE (1 of 2) 2000 RSV VACCINE (60+ or ) (1 - Risk 60-74 years 1-dose series) 2010 PNEUMOCOCCAL VACCINE 50+ YEA RS (2 of 2 - PCV) 12/14/2018 12/14/2017, 07/02/2017 INFLUENZA VACCINE (#1) 2023 , 12/29/2019, 01/12/2019, Additional history exists COVID-19 Vaccine ( - 2023-2 5 season) 2023 04/15/2021, 02/04/2021, 01/03/2021 Abdominal Aortic Aneurysm (A AA) Screening Completed 10/11/2013 Procedures Procedure Name Priority Date/Time Associated Diagnosis Comments CT ABDOMEN PELVIS WO CONTRAST IP Routine 10/11/2013 4:33 PM CDT Shock (CMS/HCC) ARF (acute renal failure) Sepsis (CMS/HCC) Anemia Bacteremia Cellulitis and abscess Abscess Obesity (BMI 30.0-34.9) Acute respiratory failure (CMS/HCC) from Last 3 Months or Most Recently Relevant to Health Maintenance Results * CT ABDOMEN PELVIS WO CONTRAST (10/11/2013 4:33 PM CDT) Anatomical Region Laterality Modality Abdomen Other Impressions 10/11/2013 4:45 PM CDT See report below. Exam: CT ABDOMEN PELVIS WO CONTRAST Date/Time of Exam: Oct 11, 2013 04:33:32 PM Reason For Exam: Pain, Shock, unspecified. Technique: CT of the abdomen and pelvis was performed without the administration of intravenous contrast. The lung bases and the pleural spaces appear normal. No free air is seen in the peritoneal cavity. The liver and spleen are normal. Surgical clips are present in the gallbladder fossa. The biliary tree and pancreas are unremarkable. The stomach and adrenal glands and kidneys are unremarkable. Aorta is heavily calcified without aneurysm. No free fluid is seen in the pelvis. A hernia of the right lower abdominal wall is again noted containing small bowel loops and mesentery. No definite bowel obstruction or inflammation is present. Previous surgical changes of the anterior abdominal wall are noted. A well defined apparently loculated fluid collection anteriorly in the abdomen is probably extraperitoneal and appears to be simple fluid. The collection measures up to 24 x 16 cm in diameter and 4.5 cm thick. Apparent mesh is seen along the anterior surface. Impression: 1. Apparent recurrent right lower abdominal hernia is present containing bowel loops and mesentery without evidence of incarceration or obstruction. No free intraperitoneal fluid is seen. 2. A large fluid collection is present apparently associated with the surgical mesh of the anterior abdominal wall. The collection is probably intra-abdominal and extraperitoneal. The collection appears simple without gross infection. 3. Otherwise unremarkable study. Narrative Procedure Note Meng Marin MD - 05/26/2022 IMPRESSION See report below. Exam: CT ABDOMEN PELVIS WO CONTRAST Date/Time of Exam: Oct 11, 2013 04:33:32 PM Reason For Exam: Pain, Shock, unspecified. Technique: CT of the abdomen and pelvis was performed without the administration of intravenous contrast. The lung bases and the pleural spaces appear normal. No free air is seen in the peritoneal cavity. The liver and spleen are normal. Surgical clips are present in the gallbladder fossa. The biliary tree and pancreas are unremarkable. The stomach and adrenal glands and kidneys are unremarkable. Aorta is heavily calcified without aneurysm. No free fluid is seen in the pelvis. A hernia of the right lower abdominal wall is again noted containing small bowel loops and mesentery. No definite bowel obstruction or inflammation is present. Previous surgical changes of the anterior abdominal wall are noted. A well defined apparently loculated fluid collection anteriorly in the abdomen is probably extraperitoneal and appears to be simple fluid. The collection measures up to 24 x 16 cm in diameter and 4.5 cm thick. Apparent mesh is seen along the anterior surface. Impression: 1. Apparent recurrent right lower abdominal hernia is present containing bowel loops and mesentery without evidence of incarceration or obstruction. No free intraperitoneal fluid is seen. 2. A large fluid collection is present apparently associated with the surgical mesh of the anterior abdominal wall. The collection is probably intra-abdominal and extraperitoneal. The collection appears simple without gross infection. 3. Otherwise unremarkable study. Lio Cordova MD CT ORDERABLES Fin al Result from Last 3 Months or Most Recently Relevant to Health Maintenance Insurance [place] Member Subscriber Plan / Payer (Ef fective 2023-Present) Name:Troncoso Cole Sudarshan Relation to Subscriber:Self Name:Troncoso, Cole Sudarshan Payer ID:Not on file Group ID:Not on file Type:Medicaid Address: [address] DUAL ADVANTAGE O [facility] RX [employer] RX Member Subscriber Plan / Payer (Ef fective 2023-Present) Name:Cole Troncoso Relation to Subscriber:Self Name:Aba Cole L Payer ID:Not on file Group ID:[id number] Type:RX Medicare Part D Address: [address] Medicaid Advance Directives For more information, please contact: [phone] * Full Code (Latest Code Status on File) Date Activated Date Inactivated Comments 06/13/2024 2:56 AM 06/19/2024 8:39 PM * Default Full Code - Needs Discussion Date Activated Date Inactivated Comments 06/13/2024 12:14 AM 06/13/2024 2:56 AM * Full Code Date Activated Date Inactivated Comments 12/03/2023 12:36 PM 12/06/2023 9:01 PM
[2024-09-20 14:02] VITALS: BP 109/61; PULSE 85; RESP 18; TEMP 36.8; O2SAT 97; BMI 30.5
--- NOTE | 2024-09-20 14:44 | W.ED.GENADLT ---
HPI - General Adult General: Chief complaint: General Medical Stated complaint: blood sugar Time Seen by Provider: 09/20/24 14:28 Source: patient Mode of arrival: ambulatory Limitations: no limitations History of Present Illness: Patient is a 74-year-old male presents to ED today stating his home health nurse meet him, after she checked his blood sugar and it was over 500 . Patient is a known diabetic. He states about an hour prior to the home health nurse checking his blood sugar he drank a DrKarina Trimble which he knows he should not do. He does have some type of Dexcom on glucometer. At time of my initial examination with patient, his meter is reading 329. He states he takes roughly 60 units of insulin glargine twice daily and then has a shorter acting insulin but is not sure of his regimen with this. States his blood sugars usually run in the 100-200s. Patient is completely asymptomatic upon arrival. Onset (ago): hour(s) Relieving factors: none Exacerbating factors: other (drank a DrKarina Trimble prior to measuring his blood sugar) Associated symptoms: Reports no associated symptoms; Deny chest pain, dyspnea, headache(s), malaise, nausea, rash or vomiting Treatments prior to arrival: none Related Data Previous Rx's ?Medication ?Instructions ?Recorded albuterol sulfate 90 mcg/actuation 2 inh inhalation Q4H PRN shortness 06/02/24 aerosol inhaler of breath or wheezing #18 grams blood sugar diagnostic (OneTouch #50 ea 06/12/24 Ultra Test strips) mupirocin 2 % topical ointment 1 applic topical BID #15 grams 07/17/24 atorvastatin 40 mg tablet (Lipitor) 40 mg PO DAILY #90 tabs 08/03/24 blood-glucose sensor (FreeStyle #2 ea 08/08/24 Jenae 3 Sensor device) NOOKSACK boot #1 ea 08/21/24 losartan 25 mg tablet 12.5 mg (1/2 x 25 mg) PO DAILY #30 09/01/24 tabs ropinirole 4 mg tablet 8 mg (2 x 4 mg) PO BID #180 tabs 09/01/24 aspirin 81 mg tablet,delayed 81 mg PO DAILY #90 tabs 09/11/24 release clopidogrel 75 mg tablet 75 mg PO DAILY 30 days #90 tabs 09/11/24 famotidine 40 mg tablet 40 mg PO BID #180 tabs 09/11/24 gabapentin 600 mg tablet 600 mg PO Q8H #270 tabs 09/11/24 flash glucose scanning reader #1 ea 09/12/24 (FreeStyle Jenae 2 [place]) flash glucose sensor (FreeStyle #2 ea 09/12/24 Jenae 2 Sensor kit) insulin glargine 100 unit/mL (3 65 unit (0.65 mL) SUBCUT BID #15 mL 09/12/24 mL) subcutaneous pen (Lantus Solostar U-100 Insulin) insulin lispro 100 unit/mL 15 unit (0.15 mL) SUBCUT TID #15 mL 09/12/24 subcutaneous pen (Humalog KwikPen (U-100) Insulin) Allergies Allergy/AdvReac Type Severity Reaction Status Date / Time Penicillins Allergy ALGY-Hives Verified 09/18/24 07:45 Review of Systems Const: Denies: fever(s), chills, body aches, fatigue or malaise Card: Denies: chest pain Resp: Denies: dyspnea GI: Denies: abdominal pain, nausea or vomiting : Denies: flank pain or dysuria Musc: Denies: neck pain, back pain, extremity pain, extremity swelling, joint pain, joint swelling or joint redness Skin/Breast: Denies: rash Neuro: Denies: headache(s), numbness in extremities, weakness in extremities or sensory changes PFSH ED PFSH: Medical History Prepatellar bursitis, right knee Osteoarthritis of right knee Acute pain of right knee 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 BG well controlled with scheduled insulin -consistent carb diet as tolerated Parastomal hernia PETER (obstructive sleep apnea) History of bladder cancer Hx of intestinal obstruction Surgical History History of appendectomy History of cholecystectomy History of shoulder surgery History of urostomy History of esophageal hernia repair Family History Mother Thyroid disease Hypertension Father Hypertension Social History Smoking and tobacco/nicotine status: former use of tobacco/nicotine Quit status (tobacco/nicotine): has quit using Year quit tobacco: 2009 Former quit date comment: previously 4 ppd Alcohol intake: former Substance/Drug Use: never Lives independently: Yes Household members: other Details: brother Marital status: / Number of children: 1 Number of grandchildren: 2 service: No Current occupational status: retired and 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 gender identity: Male Special jose carlos needs: No Agree to transfusion: Yes Physical Exam Const: COMMON NORMALS: no acute distress, average body habitus, patient oriented x3, no limitations, healthy appearing, alert and well nourished Resp: COMMON NORMALS: normal respiratory effort and clear to auscultation bilaterally AUSCULTATION: clear to auscultation bilaterally Cardio: COMMON NORMALS: regular rate and regular rhythm RATE: regular rate RHYTHM: regular rhythm GI: COMMON NORMALS: Normal to inspection, nondistended, normoactive bowel sounds present, Soft to palpation, non-tender, No hepatosplenomegaly present and no masses PALPATION: Yes Soft to palpation and Yes No hepatosplenomegaly present : COMMON NORMALS: Yes no CVA tenderness BLADDER/KIDNEY EXAM: Yes no CVA tenderness Back/Pelvis: COMMON NORMALS: no CVA tenderness Neuro: KHADIJAH COMA SCALE: document GCS findings [place] coma scale eye opening: Spontaneous Khadijah coma scale verbal response: Orientated [place] coma scale motor response: Obey commands Khadijah coma scale total score: 15 COMMON NORMALS: patient oriented x3, moves all extremities, no focal motor deficits and no sensory deficits noted SENSORIUM/ORIENTATION: Yes alert Skin: COMMON NORMALS: no rashes or lesions noted GENERAL SKIN EXAM: no rashes or lesions noted Course Vital Signs: Vital signs: Vital Signs Temperature 98.3 F 09/20/24 14:02 Pulse Rate 85 09/20/24 14:02 Respiratory Rate 18 09/20/24 14:02 Blood Pressure 109/61 09/20/24 14:02 Pulse Oximetry 97 09/20/24 14:02 Oxygen Delivery Me thod Room Air 09/20/24 14:02 MDM - General Adult Medical Decision Making Patient was given a small amount of insulin here. At time of re-assessment, his glucometer is reading 209. Patient will be allowed discharge. Better diabetic dietary restrictions discussed. Medical Records I reviewed the patient's medical records. Lab Data I reviewed the patient's lab results. 09/20/24 14:45 09/20/24 14:45 Laboratory Results WBC 5.04 10^3/uL (3.29-11.43) 09/20/24 14:45 RBC 4.25 10^6/uL (3.85-5.65) 09/20/24 14:45 Hgb 12.40 g/dL (11.27-16.99) 09/20/24 14:45 Hct 37.2 % (37-53) 09/20/24 14:45 MCV 87.5 fl (82-101) 09/20/24 14:45 MCH 29.2 pg (27-33) 09/20/24 14:45 MCHC 33.3 g/dL (30-55) 09/20/24 14:45 RDW 13.8 % (12.1-15.1) 09/20/24 14:45 Plt Count 151 10^3/cmm (157-399) L 09/20/24 14:45 MPV 10.1 fL (7.4-10.4) 09/20/24 14:45 Neut % (Auto) 41.8 % 09/20/24 14:45 Lymph % (Auto) 41.1 % 09/20/24 14:45 Baker % (Auto) 12.9 % 09/20/24 14:45 Eos % (Auto) 2.6 % 09/20/24 14:45 Baso % (Auto) 1.2 % 09/20/24 14:45 Neut # (Auto) 2.11 10^3/uL (1.8-7.7) 09/20/24 14:45 Lymph # (Auto) 2.1 10^3/uL (0.8-4.8) 09/20/24 14:45 Baker # (Auto) 0.7 10^3/uL (0.2-0.9) 09/20/24 14:45 Eos # (Auto) 0.1 10^3/uL (0.0-0.8) 09/20/24 14:45 Baso # (Auto) 0.1 10^3/uL (0.0-0.1) 09/20/24 14:45 Nucleated RBC % (auto) 0 % 09/20/24 14:45 Nucleated RBCs # 0.0 /100WBC 09/20/24 14:45 Sodium 130 mmol/L (136-145) L 09/20/24 14:45 Potassium 4.0 mmol/L (3.5-5.1) 09/20/24 14:45 Chloride 101 mmol/L (98-107) 09/20/24 14:45 Carbon Dioxide 15 mmol/L (22-29) L 09/20/24 14:45 Anion Gap 18.0 (5-19) 09/20/24 14:45 BUN 39 mg/dL (8-23) H 09/20/24 14:45 Creatinine 1.3 mg/dL (0.7-1.2) H 09/20/24 14:45 GFR Calculation Not Reportable 09/20/24 14:45 Glucose 306 mg/dL (65-115) H 09/20/24 14:45 POC Glucose 232 mg/dL (70-110) H 09/20/24 15:37 Calculated Osmolality 291 mOsm/kg (285-295) 09/20/24 14:45 Calcium 8.9 mg/dL (8.5-10.5) 09/20/24 14:45 Total Bilirubin 0.4 mg/dL (0.15-1.2) 09/20/24 14:45 AST 11 U/L (0-40) 09/20/24 14:45 ALT 12 U/L (0-41) 09/20/24 14:45 Alkaline Phosphatase 114 U/L (40-130) 09/20/24 14:45 Total Protein 7.2 g/dL (6.6-8.7) 09/20/24 14:45 Albumin 3.6 g/dL (3.5-5.2) 09/20/24 14:45 Globulin 3.6 g/dL (1.3-4.6) 09/20/24 14:45 No radiology studies performed this visit Discharge Plan Discharge Patient Disposition: Home Clinical Impression: Hyperglycemia Condition: Stable Prescriptions: No Action (DME) Good [place] Jenae 3 Sensor Device See [facility] Instructions [facility] 12[facility] Rx Instructions: Change every 14 days; Use as directed to check blood sugar mupirocin 2 % ointment 1 applic topical BID Qty: 15 0RF insulin glargine [Lantus Solostar U-100 Insulin] 100 unit/mL (3 mL) insulin pen 65 unit SUBCUT BID Qty: 15 0RF insulin lispro [Humalog KwikPen Insulin] 100 unit/mL insulin pen 15 unit SUBCUT TID Qty: 15 0RF (DME) FreeStyle Jenae 2 Sensor Kit See Rx Instructions .MEDSUPPLY Qty: 2 11RF Rx Instructions: Change every 14 days; Use as directed to check blood sugar (DME) FreeStyle Jenae 2 [place] Misc See Rx Instructions .MEDSUPPLY Qty: 1 0RF Rx Instructions: Use as directed to check blood sugar albuterol sulfate 90 mcg/actuation HFA aerosol inhaler 2 inh INHALATION Q4H PRN (Reason: shortness of breath or wheezing) Qty: 18 11RF (DME) OneTouch Ultra Test Strip See Rx Instructions .Route Qty: 50 2RF Rx Instructions: As directed atorvastatin [Lipitor] 40 mg tablet 40 mg PO DAILY Qty: 90 1RF (DME) NOOKSACK boot See Rx Instructions .Route .MEDSUPPLY Qty: 1 0RF Rx Instructions: As directed by [facility] ropinirole 4 mg tablet 8 mg PO BID Qty: 180 0RF losartan 25 mg tablet 12.5 mg PO DAILY Qty: 30 1RF aspirin 81 mg tablet,delayed release (DR/EC) 81 mg PO DAILY Qty: 90 0RF clopidogrel 75 mg tablet 75 mg PO DAILY 30 Days Qty: 90 0RF famotidine 40 mg tablet 40 mg PO BID Qty: 180 0RF gabapentin 600 mg tablet 600 mg PO Q8H Qty: 270 0RF Discharge Orders: Discharge ED (Routine); Ordered 09/20/24 Ordered By: Gladys Taylor Referrals: Ivett Still MD [Primary Care Provider, Family Practice] Patient Instructions: Hyperglycemia, Diabetic Hyperglycemia (ED), Patient Portal & [place] Instructions Print Language: Welsh Coding Level of Care Code ED Veterinary Medicine Doctor for Osiris Ansari
[2024-09-20 15:02] LABS: Hematocrit 37.2 % (37-53); Hemoglobin 12.40 g/dL (11.27-16.99); Mean Corpuscular HGB Conc 33.3 g/dL (30-55); Mean Corpuscular Hemoglobin 29.2 pg (27-33); Mean Corpuscular Volume 87.5 fl (82-101); Nucleated Red Blood Cells % 0 %; Platelet Count 151 10^3/cmm (157-399); Red Blood Count 4.25 10^6/uL (3.85-5.65); White Blood Count 5.04 10^3/uL (3.29-11.43)
[2024-09-20] MEDS: insulin regular-human 100 units/1 mL 5 UNIT IVP (15:12)
[2024-09-20 15:18] LABS: Alanine Aminotransferase 12 U/L (0-41); Albumin Level 3.6 g/dL (3.5-5.2); Alkaline Phosphatase 114 U/L (40-130); Anion Gap 18.0 (5-19); Aspartate Amino Transferase 11 U/L (0-40); Blood Urea Nitrogen 39 mg/dL (8-23); Calcium 8.9 mg/dL (8.5-10.5); Carbon Dioxide 15 mmol/L (22-29); Chloride 101 mmol/L (98-107); Creatinine Clr Calc Pharmacy 61.6164; Globulin 3.6 g/dL (1.3-4.6); Glucose 306 mg/dL (65-115); Osmolality Calculated 291 mOsm/kg (285-295); Potassium 4.0 mmol/L (3.5-5.1); Sodium 130 mmol/L (136-145); Total Protein 7.2 g/dL (6.6-8.7)
== END 2024-09-20 15:57 | disposition home or self-care (01) ==
PROVIDERS: Emergency Medicine; Emergency Provider Physician Assistant; PCP Family Medicine
DX: E10.22 Type 1 diabetes mellitus with diabetic chronic kidney disease (principal); E10.65 Type 1 diabetes mellitus with hyperglycemia; N18.2 Chronic kidney disease, stage 2 (mild); Z85.51 Personal history of malignant neoplasm of bladder; Z87.891 Personal history of nicotine dependence
CPT/HCPCS: 36416; 80053; 82962; 85025; 96374; 99284; J1815

== ENCOUNTER → 2024-10-09 13:39 | Outpatient (BNVA) | payer MEDICARE, MEDICAID, SELFPAY | PROVIDERS: PCP Family Medicine; Visit Provider Podiatrist Foot & Ankle Surgery | DX: L97.512 Non-pressure chronic ulcer of other part of right foot with fat layer exposed (principal) | CPT/HCPCS: 87070; 87075; 87205 ==

== ENCOUNTER → 2024-10-16 10:28 | Outpatient (BNVA) | payer MEDICARE, MEDICAID, SELFPAY | PROVIDERS: PCP Family Medicine; Visit Provider Podiatrist Foot & Ankle Surgery | DX: E11.621 Type 2 diabetes mellitus with foot ulcer (principal); L97.512 Non-pressure chronic ulcer of other part of right foot with fat layer exposed; E11.69 Type 2 diabetes mellitus with other specified complication; Q66.81 Congenital vertical talus deformity, right foot; Z79.4 Long term (current) use of insulin | CPT/HCPCS: 99213 ==

== ENCOUNTER → 2024-10-25 09:31 | Outpatient (BNVA) | payer MEDICARE, MEDICAID, SELFPAY | PROVIDERS: PCP Family Medicine; Visit Provider Podiatrist Foot & Ankle Surgery | DX: E11.69 Type 2 diabetes mellitus with other specified complication (principal); Q66.81 Congenital vertical talus deformity, right foot; E11.621 Type 2 diabetes mellitus with foot ulcer; L97.512 Non-pressure chronic ulcer of other part of right foot with fat layer exposed; Z79.4 Long term (current) use of insulin | CPT/HCPCS: 99213 ==

== ENCOUNTER → 2024-11-01 09:34 | Outpatient (BNVA) | payer OTHER, MEDICAID, SELFPAY | PROVIDERS: PCP Family Medicine; Visit Provider Podiatrist Foot & Ankle Surgery | DX: E11.69 Type 2 diabetes mellitus with other specified complication (principal); Q66.81 Congenital vertical talus deformity, right foot; E11.621 Type 2 diabetes mellitus with foot ulcer; L97.512 Non-pressure chronic ulcer of other part of right foot with fat layer exposed; Z79.4 Long term (current) use of insulin | CPT/HCPCS: 99213 ==

== ENCOUNTER → 2024-11-08 09:07 | Outpatient (BNVA) | payer OTHER, MEDICAID, SELFPAY | PROVIDERS: PCP Family Medicine; Visit Provider Podiatrist Foot & Ankle Surgery | DX: E11.69 Type 2 diabetes mellitus with other specified complication (principal); Q66.81 Congenital vertical talus deformity, right foot; E11.621 Type 2 diabetes mellitus with foot ulcer; L97.512 Non-pressure chronic ulcer of other part of right foot with fat layer exposed; Z79.4 Long term (current) use of insulin | CPT/HCPCS: 99213 ==

== ENCOUNTER → 2024-11-15 10:30 | Outpatient (BNVA) | payer OTHER, MEDICAID, SELFPAY | PROVIDERS: PCP Family Medicine; Visit Provider Podiatrist Foot & Ankle Surgery | DX: E11.69 Type 2 diabetes mellitus with other specified complication (principal); Q66.81 Congenital vertical talus deformity, right foot; E11.621 Type 2 diabetes mellitus with foot ulcer; L97.512 Non-pressure chronic ulcer of other part of right foot with fat layer exposed; Z79.4 Long term (current) use of insulin | CPT/HCPCS: 99213 ==

== ENCOUNTER → 2024-11-22 09:16 | Outpatient (BNVA) | payer OTHER, MEDICAID, SELFPAY | PROVIDERS: PCP Family Medicine; Visit Provider Podiatrist Foot & Ankle Surgery | DX: E11.69 Type 2 diabetes mellitus with other specified complication (principal); Q66.81 Congenital vertical talus deformity, right foot; E11.621 Type 2 diabetes mellitus with foot ulcer; L97.512 Non-pressure chronic ulcer of other part of right foot with fat layer exposed; L03.115 Cellulitis of right lower limb; Z79.4 Long term (current) use of insulin | CPT/HCPCS: 99214 ==

== ENCOUNTER → 2024-11-28 11:11 | Outpatient (BNVA) | payer MEDICARE, MEDICAID, SELFPAY | PROVIDERS: PCP Family Medicine; Visit Provider Podiatrist Foot & Ankle Surgery | DX: E11.69 Type 2 diabetes mellitus with other specified complication (principal); Q66.81 Congenital vertical talus deformity, right foot; E11.621 Type 2 diabetes mellitus with foot ulcer; L97.512 Non-pressure chronic ulcer of other part of right foot with fat layer exposed; L03.115 Cellulitis of right lower limb; Z79.4 Long term (current) use of insulin | CPT/HCPCS: 29445 ==

== ENCOUNTER → 2024-12-08 11:57 | Outpatient (BNVA) | payer MEDICARE, MEDICAID, SELFPAY | PROVIDERS: PCP Family Medicine; Visit Provider Podiatrist Foot & Ankle Surgery | DX: E11.69 Type 2 diabetes mellitus with other specified complication (principal); Q66.81 Congenital vertical talus deformity, right foot; E11.621 Type 2 diabetes mellitus with foot ulcer; L97.512 Non-pressure chronic ulcer of other part of right foot with fat layer exposed; L03.115 Cellulitis of right lower limb; Z79.4 Long term (current) use of insulin | CPT/HCPCS: 29445 ==

== ENCOUNTER → 2024-12-14 13:55 | Outpatient (BNVA) | payer MEDICARE, MEDICAID, SELFPAY | PROVIDERS: PCP Family Medicine; Visit Provider Podiatrist Foot & Ankle Surgery | DX: E11.69 Type 2 diabetes mellitus with other specified complication (principal); Q66.81 Congenital vertical talus deformity, right foot; E11.621 Type 2 diabetes mellitus with foot ulcer; L97.512 Non-pressure chronic ulcer of other part of right foot with fat layer exposed; Z79.4 Long term (current) use of insulin | CPT/HCPCS: 99213 ==

== ENCOUNTER → 2024-12-20 07:47 | Outpatient (BNVA) | payer MEDICARE, MEDICAID, SELFPAY | PROVIDERS: PCP Family Medicine; Visit Provider Podiatrist Foot & Ankle Surgery | DX: E11.69 Type 2 diabetes mellitus with other specified complication (principal); Q66.81 Congenital vertical talus deformity, right foot; L97.512 Non-pressure chronic ulcer of other part of right foot with fat layer exposed; E11.621 Type 2 diabetes mellitus with foot ulcer; Z79.4 Long term (current) use of insulin | CPT/HCPCS: 11042; 99214 ==

== ENCOUNTER → 2024-12-25 11:44 | Outpatient (BNVA) | payer MEDICARE, MEDICAID, SELFPAY | PROVIDERS: PCP Family Medicine; Visit Provider Family Medicine | DX: E11.69 Type 2 diabetes mellitus with other specified complication (principal) | CPT/HCPCS: 80053; 80061; 83036 ==

== ENCOUNTER → 2025-01-09 09:43 | Outpatient (BNVA) | payer MEDICARE, MEDICAID, SELFPAY | PROVIDERS: PCP Family Medicine; Visit Provider Podiatrist Foot & Ankle Surgery | DX: L03.115 Cellulitis of right lower limb (principal) | CPT/HCPCS: 87070; 87075; 87205 ==

== ENCOUNTER → 2025-01-15 14:31 | Outpatient (BNVA) | payer MEDICARE, MEDICAID, SELFPAY | PROVIDERS: PCP Family Medicine; Visit Provider Podiatrist Foot & Ankle Surgery | DX: L03.115 Cellulitis of right lower limb (principal); E11.69 Type 2 diabetes mellitus with other specified complication; Q66.81 Congenital vertical talus deformity, right foot; E11.621 Type 2 diabetes mellitus with foot ulcer; L97.512 Non-pressure chronic ulcer of other part of right foot with fat layer exposed; Z79.4 Long term (current) use of insulin | CPT/HCPCS: 99213 ==

== ENCOUNTER → 2025-01-23 12:49 | Outpatient (BNVA) | payer MEDICARE, MEDICAID, SELFPAY | PROVIDERS: PCP Family Medicine; Visit Provider Podiatrist Foot & Ankle Surgery | DX: E11.69 Type 2 diabetes mellitus with other specified complication (principal); Q66.81 Congenital vertical talus deformity, right foot; E11.621 Type 2 diabetes mellitus with foot ulcer; L97.512 Non-pressure chronic ulcer of other part of right foot with fat layer exposed; E11.40 Type 2 diabetes mellitus with diabetic neuropathy, unspecified; Z79.4 Long term (current) use of insulin | CPT/HCPCS: 99213 ==

== ENCOUNTER → 2025-01-30 12:10 | Outpatient (BNVA) | payer MEDICARE, MEDICAID, SELFPAY | PROVIDERS: PCP Family Medicine; Visit Provider Podiatrist Foot & Ankle Surgery | DX: E11.69 Type 2 diabetes mellitus with other specified complication (principal); Q66.81 Congenital vertical talus deformity, right foot; E11.621 Type 2 diabetes mellitus with foot ulcer; L97.512 Non-pressure chronic ulcer of other part of right foot with fat layer exposed; E11.40 Type 2 diabetes mellitus with diabetic neuropathy, unspecified; Z79.4 Long term (current) use of insulin | CPT/HCPCS: 99213 ==

== ENCOUNTER → 2025-02-06 12:37 | Outpatient (BNVA) | payer MEDICARE, MEDICAID, SELFPAY | PROVIDERS: PCP Family Medicine; Visit Provider Podiatrist Foot & Ankle Surgery | DX: E11.69 Type 2 diabetes mellitus with other specified complication (principal); Q66.81 Congenital vertical talus deformity, right foot; E11.621 Type 2 diabetes mellitus with foot ulcer; L97.512 Non-pressure chronic ulcer of other part of right foot with fat layer exposed; E11.40 Type 2 diabetes mellitus with diabetic neuropathy, unspecified; Z79.4 Long term (current) use of insulin | CPT/HCPCS: 99213 ==

== ENCOUNTER → 2025-02-20 13:08 | Outpatient (BNVA) | payer MEDICARE, MEDICAID, SELFPAY | PROVIDERS: PCP Family Medicine; Visit Provider Podiatrist Foot & Ankle Surgery | DX: E11.69 Type 2 diabetes mellitus with other specified complication (principal); Q66.81 Congenital vertical talus deformity, right foot; E11.621 Type 2 diabetes mellitus with foot ulcer; L97.512 Non-pressure chronic ulcer of other part of right foot with fat layer exposed; E11.40 Type 2 diabetes mellitus with diabetic neuropathy, unspecified; Z79.4 Long term (current) use of insulin | CPT/HCPCS: 99213 ==

== ENCOUNTER 2025-03-02 13:21 | Inpatient (IN) | payer MEDICARE, MEDICAID, SELFPAY ==
--- OUTSIDE RECORDS SUMMARY | 2024-01-15 03:00 | XMS_ITS ---
Author Organization [facility] Address [address] [place] [address] Care Team Providers Care Senior Sales Assistant Name Role Phone [facility] Primary C are Provider Unavailable Rigo Herron Unavailable [phone] Migration, Provider Unavailable Unavailable REASON FOR VISIT EMR-Regulo Encounters Encounter Location Date Provider Diagnosis Migrated_Facility 0 0 01/15/2024 Provider Migration Plan Of Treatment No Information Progress Notes * Cole TRONCOSODOB:1950 (74 yo M)Acc No.[id number]:01/15/2024 Patient: Cole LEE :1950 A ge:73 Y S ex:Male Address:[address] [place] [phone] Subjective: * Chief Complaints: * E MR-Regulo * * Date:
--- OUTSIDE RECORDS SUMMARY | 2024-01-16 03:00 | XMS_ITS ---
Author Organization [facility] Address [address] [place] [address] Care Team Providers Care Early Years Teacher Name Role Phone [facility] Primary C are Provider Unavailable Rigo Herron Unavailable [phone] Migration, Provider Unavailable Unavailable Allergies Allergen (clinical drug ingredient) Drug/Non Drug Allergy documented on EMR Reaction Allergy Type Onset Date Status Penicillin itching Drug Allergy Active REASON FOR VISIT EMR-Regulo Encounters Encounter Location Date Provider Diagnosis Migrated_Facility 0 0 01/16/2024 Provider Migration Plan Of Treatment No Information Progress Notes * ABAColeDOB:1950 (74 yo M)Acc No.[id number]:01/16/2024 Patient: Cole LEE :1950 A ge:73 Y S ex:Male Address:[address] [place] [phone] Subjective: * Chief Complaints: * E MR-Regulo * Allergies: P enicillin: itching - Allergy * * Date:
[2025-03-02] VITALS (11 sets, daily range): BP systolic 88–177; BP diastolic 48–91; PULSE 86–120; RESP 16–31; TEMP 37.6–39.4; O2SAT 92–98; BMI 31.1
--- NOTE | 2025-03-02 13:23 | ECG_ITS ---
[facility] Test Date: 2025-03-02 Pat Name: Cole Troncoso Department: Room: Gender: Male [employer]: : [id number] Requested By: Susie Heaton Order Number: [id number] Sharri MD: KAPIL CONCEPCION Measurements Intervals Calvin Rate: 121 P: -3 DC: 160 QRS: -49 QRSD: 136 T: 38 QT: 334 QTc: 476 Interpretive Statements SINUS TACHYCARDIA RIGHT BUNDLE BRANCH BLOCK [120+ ms QRS DURATION, UPRIGHT V1, 40+ ms S IN I/aVL/V4/V5/V6] LEFT ANTERIOR FASCICULAR BLOCK [QRS AXIS <= -45, QR IN I, RS IN II] Compared to ECG 09/04/2024 11:56:25 Left anterior fascicular block now present Sinus rhythm no longer present Electronically Signed On 03-02-2025 18:29:28 [facility] by KAPIL CONCEPCION [email or web address]
--- NOTE | 2025-03-02 13:23 | XR_ITS ---
WS: [id number] XR chest 1V portable [id number] REASON FOR EXAM: Weakness FINDINGS: Moderate tortuosity and ectasia of the thoracic aorta. Cardiomegaly. Significant central pulmonary venous congestion. Compared to most recent examination of 04/13/2024 there also appears to be fine reticular interstitial lung opacities and peribronchial cuffing. Mild degenerative spondylosis in the thoracic spine. Complete rotator cuff tear in the right shoulder with moderate osteoarthritis. XR/XR chest 1V portable [id number] IMPRESSION: Cardiomegaly with central venous congestion and interstitial edema. Early conge stive failure.
--- NOTE | 2025-03-02 13:37 | W.ED.AMS ---
HPI - Altered Mental Status General: Chief Complaint: Altered Mental Status Stated Complaint: hyperglycemia History of Present Illness: 74-year-old man with a history of chronic kidney disease, obesity, diabetes, diabetic neuropathy, obstructive sleep apnea, history of bladder cancer with urostomy placement, and hypertension who presents emergency room by ambulance with confusion, fever possible sepsis. . Initially is a bit confused but I talk with him later in with his and they tell me that he has been having a lot of cough recently. He was to be confused. The cough been going on for about a week. No chest pain. He has chronic wounds on his leg and feet which apparently are healing pretty well at this point. He follows with Dr. Day. He has been wearing a boot on his right foot for a couple of years now. Some mild redness at the base of his great toenail but no overt cellulitis on his feet that I can see. Related Data Previous Rx's ?Medication ?Instructions ?Recorded [place] boot #1 ea 08/21/24 carbon fiber afo #1 ea 12/20/24 albuterol sulfate 90 mcg/actuation 2 inh inhalation Q4H PRN shortness 12/25/24 aerosol inhaler of breath or wheezing #18 grams aspirin 81 mg tablet,delayed 81 mg PO DAILY #90 tabs 12/25/24 release atorvastatin 40 mg tablet (Lipitor) 40 mg PO DAILY #90 tabs 12/25/24 clopidogrel 75 mg tablet 75 mg PO DAILY #90 tabs 12/25/24 flash glucose sensor (FreeStyle #2 ea 12/25/24 Jenae 2 Sensor kit) fluticasone propionate 50 1 spray intranasal DAILY PRN nasal 12/25/24 mcg/actuation nasal congestion #16 grams spray,suspension (Flonase Allergy Relief) gabapentin 600 mg tablet 600 mg PO Q8H #270 tabs 12/25/24 insulin glargine 100 unit/mL (3 65 unit (0.65 mL) SUBCUT BID #15 mL 12/25/24 mL) subcutaneous pen (Lantus Solostar U-100 Insulin) insulin lispro 100 unit/mL 15 unit (0.15 mL) SUBCUT TID #15 mL 12/25/24 subcutaneous pen (Humalog KwikPen (U-100) Insulin) ropinirole 4 mg tablet 8 mg (2 x 4 mg) PO BID #360 tabs 12/25/24 famotidine 40 mg tablet 40 mg PO BID #180 tabs 01/01/25 losartan 25 mg tablet 12.5 mg (1/2 x 25 mg) PO DAILY #45 01/01/25 tabs flash glucose scanning reader #1 ea 01/16/25 (FreeStyle Jenae 2 [place]) Diabetic shoe with Custom #1 ea 01/23/25 accommodative insoles Allergies Allergy/AdvReac Type Severity Reaction Status Date / Time Penicillins Allergy ALGY-Hives Verified 02/20/25 13:15 Review of Systems Narrative: Constitutional symptoms: Negative except as documented in HPI. Skin symptoms: Negative except as documented in HPI. Eye symptoms: Negative except as documented in HPI. ENMT symptoms: Negative except as documented in HPI. Respiratory symptoms: Negative except as documented in HPI. Cardiovascular symptoms: Negative except as documented in HPI. Gastrointestinal symptoms: Negative except as documented in HPI. Genitourinary symptoms: Negative except as documented in HPI. Musculoskeletal symptoms: Negative except as documented in HPI. Neurologic symptoms: Negative except as documented in HPI. Psychiatric symptoms: Negative except as documented in HPI. Endocrine symptoms: Negative except as documented in HPI. PFSH ED PFSH: Medical History (Updated 03/02/25 @ 17:37 by Susie Dalton MD) Prepatellar bursitis, right knee Osteoarthritis of right knee Acute pain of right knee 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 BG well controlled with scheduled insulin -consistent carb diet as tolerated Parastomal hernia PETER (obstructive sleep apnea) History of bladder cancer Hx of intestinal obstruction Surgical History History of appendectomy History of cholecystectomy History of shoulder surgery History of urostomy History of esophageal hernia repair Family History Mother Thyroid disease Hypertension Father Hypertension Social History Smoking and tobacco/nicotine status: former use of tobacco/nicotine Quit status (tobacco/nicotine): has quit using Year quit tobacco: 2009 Former quit date comment: previously 4 ppd Alcohol intake: former Substance/Drug Use: never Lives independently: Yes Household members: other Details: brother Marital status: / Number of children: 1 Number of grandchildren: 2 service: No Current occupational status: retired and 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 Skin: Warm, dry. Head: Normocephalic, atraumatic. Neck: Supple, trachea midline. Eye: Extraocular movements are intact. Ears, nose, mouth and throat: Dry oral mucosa Cardiovascular: Regular, tachycardic Respiratory: Lungs are clear to auscultation, respirations are non-labored, breath sounds are equal, Symmetrical chest wall expansion. Gastrointestinal: Soft, Nontender, Non distended Musculoskeletal: Normal ROM, no deformity. Neurological: Initially was slightly confused but alert, no focal neurological deficit observed. Psychiatric: Unable to assess Course Vital Signs: Vital signs: Vital Signs Temperature 99.6 F 03/02/25 16:42 Pulse Rate 102 H 03/02/25 16:49 Respiratory Rate 31 H 03/02/25 16:42 Blood Pressure 113/66 03/02/25 16:49 Pulse Oximetry 95 03/02/25 16:49 Oxygen Delivery Me thod Nasal Cannula 03/02/25 16:42 Oxygen Flow Rate 4 03/02/25 13:21 MDM - Altered Mental Status Medical Decision Making Medical decision making Patient's reason for coming to the emergency room: Altered mental status, cough, hyperglycemia, fever Social determinants: Retired, I reviewed the patient's medical record. 74-year-old man with a history of chronic kidney disease, obesity, diabetes, diabetic neuropathy, obstructive sleep apnea, history of bladder cancer with urostomy, and hypertension I reviewed the patient's current home meds Alternate historians: I also obtained history from EMS and from patient's . She tells me he has been coughing for about a week now. Differential diagnosis including but not limited to and based on the above HPI, review of systems and physical exam: In this patient with altered mental status: Stroke. Hypoglycemia. Metabolic encephalopathy. Infections such as pneumonia, urinary tract infection, Covid-19, Influenza. Electrolyte abnormalities such as hypernatremia. Renal failure / uremia. Hepatic encephalopathy. Hypoxemia. Hypercapnic respiratory failure. Psychosis. Drug or alcohol intoxication. Medication overdose. Orders placed to evaluate differential diagnosis based on the above differential, HPI and physical exam EKG: Time 1330. Rate 121. Sinus tachycardia, No ST-T changes, no ectopy, right bundle branch block, this was reviewed and interpreted by myself the ER physician at 1335 Repeat EKG: Time 1428. Rate 109. Sinus tachycardia, No ST-T changes, no ectopy, right bundle branch block, This was reviewed and interpreted by myself the ER physician at 1434 Chest x-ray: This is read as cardiomegaly with venous congestion. However this looks to me to be more in the lines of bilateral pneumonia. Particularly given the patient's symptoms. Fever, cough, hypotension etc. This was reviewed and interpreted by myself the emergency room physician. I also reviewed the radiology report. Lab Review: Laboratory results were reviewed and interpreted by myself the emergency room physician. No leukocytosis. No anemia. Mild renal failure. Glucose is elevated at 390 initially. Urinalysis has 4+ bacteria but he does have a urostomy. Assessment of risk: Level of risk: High risk patient. Multiple comorbidities. Hospitalization considerations: Patient is being admitted to the ICU. Reexamination: Patient is quite a bit improved on my second exam. He is not confused. He and his give me further history at this time. He is requiring 4 L nasal cannula but not working hard to breathe at this time. Consultation: I spoke with Dr. Tinoco who is on-call for the hospitalist service who agrees to admission Assessment and plan: Pneumonia Hypoxemia Fever Sepsis Hyperglycemia -3 L normal saline bolus. 30 mL/kg. 1 L on ambulance and 2 L here. -Broad-spectrum antibiotics were administered. There was a delay in this being given. Apparently I had not signed the order initially. Zyvox and meropenem -Sepsis quality measures. -Lactic acid with a reflex was ordered. -Blood cultures were ordered. ?I reevaluated the patient's volume status after sepsis fluids were given. -I discussed the patient with the hospitalist on-call who is admitting the patient. - Discussed findings and plan with patient. Answered any questions. - All laboratory values were reviewed and interpreted personally by myself, the ER physician - All imaging was reviewed and interpreted personally by myself, the ER physician. - Evaluation and treatment of this problem were appropriate in the emergency setting Critical Care: -I spent a total of 36 minutes of critical care time managing the patient, independent of any other practitioner. -The time involved in the performance of separately reportable procedures was not counted towards critical care time. Lab Data 03/02/25 13:05 03/02/25 13:05 Radiology Impressions Chest X-Ray 03/02/25 13:23 IMPRESSION: Cardiomegaly with central venous congestion and interstitial edema. Early congestive failure. Laboratory Results WBC 8.25 10^3/uL (3.29-11.43) 03/02/25 13:05 RBC 5.34 10^6/uL (3.85-5.65) 03/02/25 13:05 Hgb 16.00 g/dL (11.27-16.99) 03/02/25 13:05 Hct 46.4 % (37-53) 03/02/25 13:05 MCV 86.9 fl (82-101) 03/02/25 13:05 MCH 30.0 pg (27-33) 03/02/25 13:05 MCHC 34.5 g/dL (30-55) 03/02/25 13:05 RDW 13.1 % (12.1-15.1) 03/02/25 13:05 Plt Count 140 10^3/cmm (157-399) L 03/02/25 13:05 MPV 10.7 fL (7.4-10.4) H 03/02/25 13:05 Neut % (Auto) 81.6 % 03/02/25 13:05 Lymph % (Auto) 11.0 % 03/02/25 13:05 [place] % (Auto) 6.1 % 03/02/25 13:05 Eos % (Auto) 0.4 % 03/02/25 13:05 Baso % (Auto) 0.4 % 03/02/25 13:05 Neut # (Auto) 6.74 10^3/uL (1.8-7.7) 03/02/25 13:05 Lymph # (Auto) 0.9 10^3/uL (0.8-4.8) 03/02/25 13:05 [place] # (Auto) 0.5 10^3/uL (0.2-0.9) 03/02/25 13:05 Eos # (Auto) 0.0 10^3/uL (0.0-0.8) 03/02/25 13:05 Baso # (Auto) 0.0 10^3/uL (0.0-0.1) 03/02/25 13:05 Nucleated RBC % (auto) 0 % 03/02/25 13:05 Nucleated RBCs # 0.0 /100WBC 03/02/25 13:05 Specimen Type Arterial 03/02/25 13:50 Sample Site Radial, right 03/02/25 13:50 ABG pH 7.48 (7.35-7.45) H 03/02/25 13:50 ABG pCO2 37.3 mmHg (35-45) 03/02/25 13:50 ABG pO2 56.0 mmHg (80.0-100.0) L 03/02/25 13:50 ABG PO2/FiO2 Ratio 140 03/02/25 13:50 ABG HCO3 27.5 mmol/L (22-26) H 03/02/25 13:50 ABG O2 Saturation 91.5 03/02/25 13:50 ABG Base Excess 3.8 mmol/L (-2.0-2.0) H 03/02/25 13:50 Daron Test Pos 03/02/25 13:50 A-a O2 Gradient 23.8 mmHg (5-10) H 03/02/25 13:50 Hematocrit 45.6 % (42-52) 03/02/25 13:50 Hgb O2 Saturation 89.4 % (95-100) L 03/02/25 13:50 Carboxyhemoglobin 1.3 %THgb (0.4-20.1) 03/02/25 13:50 Methemoglobin 1.0 % (0.4-1.5) 03/02/25 13:50 Total Hemoglobin 14.9 g/dL (14-18) 03/02/25 13:50 Sodium 134.0 mmol/L (131-143) 03/02/25 13:50 Potassium 3.8 mmol/L (3.5-5.0) 03/02/25 13:50 Glucose 371.0 mg/dL (70-115) H 03/02/25 13:50 Ionized Calcium 1.1 mmol/L (1.1-1.4) 03/02/25 13:50 O2 Delivery Device Nc 03/02/25 13:50 O2 Liters/Min 5.0 % 03/02/25 13:50 FiO2 40.0 % 03/02/25 13:50 Narcotics And Vice Detective ID glc 03/02/25 13:50 Sodium 134 mmol/L (136-145) L 03/02/25 13:05 Potassium 4.2 mmol/L (3.5-5.1) 03/02/25 13:05 Chloride 92 mmol/L (98-107) L 03/02/25 13:05 Carbon Dioxide 25 mmol/L (22-29) 03/02/25 13:05 Anion Gap 21.2 (5-19) H 03/02/25 13:05 BUN 29 mg/dL (8-23) H 03/02/25 13:05 Creatinine 1.2 mg/dL (0.7-1.2) 03/02/25 13:05 GFR Calculation Not Reportable 03/02/25 13:05 Glucose 390 mg/dL (65-115) H 03/02/25 13:05 POC Glucose 350 mg/dL (70-110) H 03/02/25 13:25 Calculated Osmolality 300 mOsm/kg (285-295) H 03/02/25 13:05 Lactic Acid 2.9 mmol/L (0.5-2.2) H 03/02/25 13:05 Calcium 9.4 mg/dL (8.5-10.5) 03/02/25 13:05 Total Bilirubin 0.7 mg/dL (0.15-1.2) 03/02/25 13:05 AST 17 U/L (0-40) 03/02/25 13:05 ALT 19 U/L (0-41) 03/02/25 13:05 Alkaline Phosphatase 136 U/L (40-130) H 03/02/25 13:05 Troponin T Baseline 48 ng/L (0-15) H 03/02/25 13:05 Troponin T 60 Minute 42.25 ng/L (0-15) H 03/02/25 13:52 Delta Troponin T -5.75 ABS# (0-10) L 03/02/25 13:52 C-Reactive Protein 61.9 mg/L (0.0-4.9) H 03/02/25 13:05 NT-Pro-B Natriuret Pep 570 pg/mL (0-125) H 03/02/25 13:05 Total Protein 8.3 g/dL (6.6-8.7) 03/02/25 13:05 Albumin 4.3 g/dL (3.5-5.2) 03/02/25 13:05 Globulin 4.0 g/dL (1.3-4.6) 03/02/25 13:05 Procalcitonin 0.25 ng/mL (0-0.5) 03/02/25 13:05 Urine Color Yellow (Yellow) 03/02/25 13:54 Urine Appearance Cloudy (CLEAR) A 03/02/25 13:54 Urine pH 8.5 (5-7) A 03/02/25 13:54 Ur Specific [place] 1.014 (1.005-1.030) 03/02/25 13:54 Urine Protein 2+ (Negative) A 03/02/25 13:54 Urine Glucose (UA) Trace (Normal) H 03/02/25 13:54 Urine Ketones Negative (Negative) 03/02/25 13:54 Urine Blood Trace (Negative) A 03/02/25 13:54 Urine Nitrate Positive (Negative) A 03/02/25 13:54 Urine Bilirubin Negative (Negative) 03/02/25 13:54 Urine Urobilinogen 0.2 mg/dL (Negative) 03/02/25 13:54 Ur Leukocyte Esterase Negative (Negative) 03/02/25 13:54 Urine RBC 0-2 /hpf (0-2) 03/02/25 13:54 Urine WBC 6-10 /hpf (0-5) 03/02/25 13:54 Ur Squamous Epith Cells 6-10 /hpf (0-5) 03/02/25 13:54 Amorphous Sediment Not Reportable 03/02/25 13:54 Urine Bacteria 4+ /hpf (NONE) H 03/02/25 13:54 Hyaline Casts 8.67 /lpf 03/02/25 13:54 Influenza A (PCR) Negative (Negative) 03/02/25 13:36 Influenza Type B (PCR) Negative (Negative) 03/02/25 13:36 RSV (PCR) Negative (Negative) 03/02/25 13:36 SARS-CoV-2 (PCR) Negative (Negative) 03/02/25 13:36 All radiology interpretation(s) finalized by discharge Discharge Plan Discharge Patient Disposition: Admitted As Inpatient Admit Provider: Bernardo Tinoco Clinical Impression: Pneumonia, Hypoxemia, Fever, Hyperglycemia Condition: Stable Coding Level of Care Code ED Stretcher Drier Operator for Osiris Ansari
--- OUTSIDE RECORDS SUMMARY | 2025-03-02 13:38 | XMS_ITS | Encounter Summary ---
Author Organization [facility] Address 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
--- OUTSIDE RECORDS SUMMARY | 2025-03-02 13:38 | XMS_ITS | Clinical Summary ---
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 Gender Identity Not on file Sexual Orientation [...] (1 of 2) 2000 INFLUENZA VACCINE (#1) 2024 RSV VACCINE (60+ or ) (1 - 1-dose 75+ series) 2025 Insurance MEDICARE PART A AND B Advance Directives For more information, please contact: [phone] * Full Code (Latest Code Status on File) Date Activated Date Inactivated Comments 10/11/2013 5:11 AM 10/16/2013 11:26 PM * Full Code Date Activated Date Inactivated Comments 12/23/2012 10:30 PM 12/26/2012 4:26 PM * Full Code Date Activated Date Inactivated Comments 02/24/2009 5:20 PM 03/02/2009 4:01 PM Care Teams Farm Reporter Relationship Specialty Start Date End Date Non-Staff, Physician NO ADDRESS ON FILE PCP - General 12/23/12
--- OUTSIDE RECORDS SUMMARY | 2025-03-02 13:38 | XMS_ITS | Patient Health Record ---
Author Organization [facility] Address [address] [place] [address] Care Team Providers Care Smoking Pipes Cleaner Name Role Phone [facility] Primary C are Provider Unavailable Rigo Herron Unavailable [phone] Allergies Allergen (clinical drug ingredient) Drug/Non Drug Allergy documented on EMR Reaction Allergy Type Onset Date Status Penicillin itching Drug Allergy Active Reason For Referral No Information Medications Medication SIG (Take, Route, Frequency, Duration) Notes Start Date End Date Status True Metrix Air Glucose Meter w/Device Kit use to read subq 4 times daily; Duration: 30 days Active TRUEplus Lancets 28G - Miscellaneous as directed; Duration: 30 days 05/19/2022 Active True Metrix Level 1 Low Solution use to brooke In Vitro; Duration: 30 days Active rOPINIRole HCl 4 MG Tablet 2 tablets Ora lly BID; Duration: 90 days Active Janumet XR 50-1000 MG Tablet Extended Release 24 Hour 2 tablets with evening meal Orally Once a day; Duration: 30 days 11/12/2022 Active Levemir FlexPen 100 UNIT/ML Solution Pen-injector 70 units Subcutaneous BID; Duration: 30 days Active Social History Tobacco Use: Social History Observation Description Date Details (start date - stop date) Never Smoker NA - NA Social History Drugs/Alcohol: Social Info Question Answer Notes Alcohol Screen (Audit-C) Did you have a drink containing alcohol in the past year? No Points 0 Interpretation Negative Drugs Have you used drugs other than those for medical reasons in the past 12 months? No Household: Social Info Question Answer Notes Household Private Home With Family Tobacco Use: Social Info Question Answer Notes xTobacco Use/Smoking Are you a nonsmoker Problems Problem Type SNOMED Code ICD Code Onset Dates Problem Status W/U Status Risk Notes Problem Chronic pain (14193353) Other chronic pain (G89.29) Active confirmed Problem Pain of right shoulder region (finding) (4443859693) Pain in right shoulder (M25.511) Active confirmed Problem Colostomy present (631421086) Colostomy status (Z93.3) Active confirmed Problem Gastrostomy present (636919647) Other artificial openings of gastrointestinal tract status (Z93.4) Active confirmed Problem Chronic fatigue syndrome (23373935) Chronic fatigue (R53.82) Active confirmed Problem Diabetic neuropathic arthropathy (320283938) Type 2 diabetes mellitus with diabetic neuropathic arthropathy, without long-term current use of insulin (E11.610) Active confirmed Problem Tear of supraspinatus tendon (436242854) Tear of right supraspinatus tendon (M75.101) Active confirmed Problem Inflammation of joint of shoulder region (608453263) 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
--- OUTSIDE RECORDS SUMMARY | 2025-03-02 13:38 | XMS_ITS | Encounter Summary ---
Author Organization [facility] Address 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 Gender Identity Not on file Sexual Orientation [...] PM CDT Narrative 12/28/2007 2:00 PM CDT [address] [address] Admit Date: 12/27/2007 COLE TRONCOSO Sex: M Admit Prov: CASTRO RAZA Date: 1950 Primary Care Prov: CMRN: [id number] [id number] Ordering Prov: N/A Accession Number: [id number] Interpretation EXAM: CT OF THE ABDOMEN WITH [...] DKT Procedure Note Tesfaye Richardson - 12/28/[address] [address] Admit Date: 12/27/2007 COLE TRONCOSO Sex: M Admit Prov: CASTRO RAZA Date: 1950 Primary Care Prov: CMRN: [id number] Room: [facility] SSN: [id number] IMAGING SERVICES Ordering Prov: N/A Interpretation EXAM: [...] CDT) CHLORIDE 104 96 - 108 mmol/L [facility] BUN 10 6 - 20 mg/dL [facility] CALCIUM 9.3 8.6 - 10.2 mg/dL [facility] SODIUM 138 135 - 145 mmol/L [facility] GLUCOSE 116(H) 65 - 99 mg/dL [facility] CO2 25 22 - 30 mmol/L [facility] POTASSIUM 3.6 3.5 - 4.9 mmol/L [facility] CREATININE 0.84 0.67 - 1.17 mg/dL [facility] GFR, >60 >=60 mL/min/1. 7 sq meter [facility] GFR >60 >=60 mL/min/1. 7 sq meter [facility] Comment: Modification of Diet in Renal Disease (MDRD) study formula. Estimated GFR rate interpretative information for both Americans and non- Americans is available on the [facility] Intranet at: [email or web address] Select: Lab Policies and Procedures Select: Reference Ranges - GFR Blood specimen (specimen) 12/27/2007 2:45 PM CDT 12/27/2007 2:47 PM CDT Castro Raza MD CHEMISTRY ORDERABLES Edited INTERFACE SYSTEM Refer to clinic/hospital department [facility] CLIA# [id number] [address] [place] [address] documented in this encounter Visit Diagnoses Diagnosis Malignant neoplasm of bladder, part unspecified (CMS/HCC) Malignant neoplasm of bladder, part unspecified documented in this encounter Care Teams Bean Picker Machine Operator Relationship Specialty Start Date End Date Leonardo Etienne MD [address] [place] [phone] PCP - General 10/19/14 12/06/23 documented as of this encounter
--- OUTSIDE RECORDS SUMMARY | 2025-03-02 13:39 | XMS_ITS | Clinical Summary ---
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 Gender Identity Not on file Sexual Orientation [...] Flex Sig/CT Colonography Q 5 years 09/14/1995 RSV VACCINE (60+ or ) (1 - Risk 50-74 years 1-dose series) 2000 ZOSTER VACCINE (1 of 2) 2000 PNEUMOCOCCAL VACCINE 50+ YEA RS (2 of 2 - PCV) 12/14/2018 12/14/2017, 07/02/2017 INFLUENZA VACCINE (#1) 2024 , 12/29/2019, 01/12/2019, Additional history exists COVID-19 Vaccine ( - 2024-2 6 season) 2024 04/15/2021, 02/04/2021, 01/03/2021 Abdominal Aortic Aneurysm (A [...] Relevant to Health Maintenance Insurance MEDICAID [facility] DUAL ADVANTAGE [facility] RX [employer] RX Member Subscriber Plan / Payer (Ef fective 2023-Present) Name:Cole Troncoso Relation to Subscriber:Self Name:Cole Troncoso Payer ID:Not on file Group ID:[id number] Type:RX Medicare Part D Address: [place], [place] RX INFOCROSSING Medicaid Advance Directives For more information, please contact: [phone] * Full Code (Latest Code Status on File) Date Activated Date Inactivated Comments 06/13/2024 2:56 AM 06/19/2024 8:39 PM * Default Full Code - Needs Discussion Date Activated Date Inactivated Comments 06/13/2024 12:14 AM 06/13/2024 2:56 AM * Full Code Date Activated Date Inactivated Comments 12/03/2023 12:36 PM 12/06/2023 9:01 PM
[2025-03-02 13:45] LABS: Hematocrit 46.4 % (37-53); Hemoglobin 16.00 g/dL (11.27-16.99); Mean Corpuscular HGB Conc 34.5 g/dL (30-55); Mean Corpuscular Hemoglobin 30.0 pg (27-33); Mean Corpuscular Volume 86.9 fl (82-101); Nucleated Red Blood Cells % 0 %; Platelet Count 140 10^3/cmm (157-399); Red Blood Count 5.34 10^6/uL (3.85-5.65); White Blood Count 8.25 10^3/uL (3.29-11.43)
[2025-03-02 14:00] LABS: ABG PCO2 37.3 mmHg (35-45); ABG PH Result 7.48 (7.35-7.45); Alveolar-Arterial Oxygen Gradi 23.8 mmHg (5-10); Arterial Blood Gas Hematocrit 45.6 % (42-52); Blood Gas Allen Test Pos; Blood Gas LPM 5.0 %; Blood Gas Operator Identificat glc; Blood Gas Sample Site Radial, right; Blood Gas Sample Type Arterial; Carboxyhemoglobin 1.3 %THgb (0.4-20.1); Glucose Level-ABG 371.0 mg/dL (70-115); HCO3 ABG 27.5 mmol/L (22-26); Ionized Calcium Level - ABG 1.1 mmol/L (1.1-1.4); Methemoglobin 1.0 % (0.4-1.5); Oxygen Saturation ABG 91.5; PO2 ABG 56.0 mmHg (80.0-100.0); PO2 FiO2 Ratio Arterial Blood 140; Potassium Level - ABG 3.8 mmol/L (3.5-5.0); Sodium Level - ABG 134.0 mmol/L (131-143)
[2025-03-02] MEDS: acetaminophen 1,000 MG/100 ML PIGGYBACK 400 MG IV (14:00)
[2025-03-02 14:08] LABS: Glucose Urine UA Trace (Normal); Nitrate Urine Positive (Negative); Specific Gravity, Urine 1.014 (1.005-1.030)
--- NOTE | 2025-03-02 14:08 | PC.NURSE ---
pt arrived covered in urine. complete bed change done by ED techs, pt changed into gown. changed pt's urostomy bag d/t coming off.
[2025-03-02 14:13] LABS: Troponin(5th) Baseline 48 ng/L (0-15)
[2025-03-02 14:17] LABS: Respiratory Syncytial Virus Ce NEGATIVE (Negative); SARS-CoV-2 PCR NEGATIVE (Negative)
[2025-03-02 14:18] LABS: Lactic Sepsis W/Reflex 2.9 mmol/L (0.5-2.2)
[2025-03-02 14:28] LABS: NT Pro B Type Natriuretic Pept 570 pg/mL (0-125); Procalcitonin 0.25 ng/mL (0-0.5)
--- NOTE | 2025-03-02 14:28 | ECG_ITS ---
[facility] Test Date: 2025-03-02 Pat Name: Cole Troncoso Department: Room: Gender: Male Manager Budget: : 1950 Requested By: Susie Heaton Order Number: [id number] Reading MD: KAPIL CONCEPCION Measurements Intervals [place] Rate: 109 P: 0 MS: 0 QRS: -42 QRSD: 130 T: 23 QT: 345 QTc: 466 Interpretive Statements Sinus RHYTHM LEFT AXIS DEVIATION [QRS AXIS < -30] RIGHT BUNDLE BRANCH BLOCK [120+ ms QRS DURATION, UPRIGHT V1, 40+ ms S IN I/aVL/V4/V5/V6] Compared to ECG 03/02/2025 13:30:17 Left-axis deviation now present Sinus tachycardia no longer present Left anterior fascicular block no longer present Electronically Signed On 03-02-2025 18:34:53 [address]MP TRUCK DRIVER [address] by KAPIL CONCEPCION [id number]
[2025-03-02 14:39] LABS: Alanine Aminotransferase 19 U/L (0-41); Albumin Level 4.3 g/dL (3.5-5.2); Alkaline Phosphatase 136 U/L (40-130); Anion Gap 21.2 (5-19); Aspartate Amino Transferase 17 U/L (0-40); Blood Urea Nitrogen 29 mg/dL (8-23); Calcium 9.4 mg/dL (8.5-10.5); Carbon Dioxide 25 mmol/L (22-29); Chloride 92 mmol/L (98-107); Creatinine Clr Calc Pharmacy 67.4441; Globulin 4.0 g/dL (1.3-4.6); Glucose 390 mg/dL (65-115); Osmolality Calculated 300 mOsm/kg (285-295); Potassium 4.2 mmol/L (3.5-5.1); Sodium 134 mmol/L (136-145); Total Protein 8.3 g/dL (6.6-8.7)
[2025-03-02 14:40] LABS: Reflex Lactate Order REFLEX LACTIC ORDERD
[2025-03-02 14:46] LABS: UA Slide Review UA Slide Review Perf
--- NOTE | 2025-03-02 14:52 | PC.PHAR ---
Spouse states she helps with medications during the day but works nights and states pt does not take insulin etc. the way he is supposed to.
--- NOTE | 2025-03-02 14:55 | PC.NURSE ---
provided pt with swab to damp lips/mouth until cleared for drinking water
--- NOTE | 2025-03-02 16:32 | PM.HP ---
Providers/Chief Complaint Admitting Physician: Bernardo Tinoco MD Primary Care Provider: Ivett Still MD Chief Complaint: hyperglycemia History of Present Illness Cole Troncoso is a 74 year old male pmhx DM2, CKD stage 2, diabetic neuropathy, CAD, HTN, dyslipidemia, PETER- does not wear cpap at home, hx of bladder cancer w/ urostomy placement, GERD, RLS, and Non-pressure chronic ulcer right foot- sees Dr. Day in clinic. Patient presents to ED today for c/o AMS, fever, and SOB(requiring 4 L nasal cannula) x 1 week. Patient reports associated signs/symptoms of increased weakness, productive cough (thick green), and N/V/D. Patient denies headache, fever, chest pain, abd pain, recent medication changes. Patient to be admitted to hospitalist services for further medical management and care of CAP. While in ED a CBC, CMP, ABG, BNP, troponin series, procalcitonin reviewed and results as follows: WBC 8.25, Neut 81.6%, RBC 5.34, Hgb 16, Hct 46.4%, Plt 140, MPV 10.7. Na 134, K 4.2, Dietitian Chief 1.2, BUN 29, [place]i Phos 136, Osmo 300, Lactic acid 2.9, Glucose 390. LFTs WNL. ABG pH 7.43, pO2 56.0, HCO3 27.5, Glucose 371. Baseline Trop 48, 2hr Trop 42.25, Delta Trop -5.75, BNP 570, CRP 61.9, Procalcitonin 0.25. While in the ED patient received following medications: Meropenem 500 mg IVP, linezolid 600 mg IV, 2L sepsis NS IV bolus, acetaminophen 1000 mg IV. Review of Systems General: Reports: 10 or more systems reviewed and unremarkable except in HPI and below Medications/Allergies Home Medications ?Medication ?Instructions ?Recorded ?Confirmed ?Last Taken ?Type MIAMI boot #1 ea 08/21/24 03/02/25 Unknown Rx carbon fiber afo #1 ea 12/20/24 03/02/25 Unknown Rx albuterol sulfate 90 mcg/actuation 2 inh inhalation Q4H PRN shortness 12/25/24 03/02/25 Unknown Rx aerosol inhaler of breath or wheezing #18 grams aspirin 81 mg tablet,delayed 81 mg PO DAILY #90 tabs 12/25/24 03/02/25 03/02/25 Rx release atorvastatin 40 mg tablet (Lipitor) 40 mg PO DAILY #90 tabs 12/25/24 03/02/25 03/02/25 Rx clopidogrel 75 mg tablet 75 mg PO DAILY #90 tabs 12/25/24 03/02/25 03/02/25 Rx flash glucose sensor (FreeStyle #2 ea 12/25/24 03/02/25 Unknown Rx Jenae 2 Sensor kit) fluticasone propionate 50 1 spray intranasal DAILY PRN nasal 12/25/24 03/02/25 03/02/25 Rx mcg/actuation nasal congestion #16 grams spray,suspension (Flonase Allergy Relief) gabapentin 600 mg tablet 600 mg PO Q8H #270 tabs 12/25/24 03/02/25 03/02/25 Rx insulin glargine 100 unit/mL (3 65 unit (0.65 mL) SUBCUT BID #15 mL 12/25/24 03/02/25 03/02/25 Rx mL) subcutaneous pen (Lantus Solostar U-100 Insulin) insulin lispro 100 unit/mL 15 unit (0.15 mL) SUBCUT TID #15 mL 12/25/24 03/02/25 03/02/25 Rx subcutaneous pen (Humalog KwikPen (U-100) Insulin) ropinirole 4 mg tablet 8 mg (2 x 4 mg) PO BID #360 tabs 12/25/24 03/02/25 03/02/25 Rx famotidine 40 mg tablet 40 mg PO BID #180 tabs 01/01/25 03/02/25 03/02/25 Rx losartan 25 mg tablet 12.5 mg (1/2 x 25 mg) PO DAILY #45 01/01/25 03/02/25 03/02/25 Rx tabs flash glucose scanning reader #1 ea 01/16/25 03/02/25 Unknown Rx (FreeStyle Jenae 2 [place]) Diabetic shoe with Custom #1 ea 01/23/25 03/02/25 Unknown Rx accommodative insoles Allergies Allergy/AdvReac Type Severity Reaction Status Date / Time Penicillins Allergy ALGY-Hives Verified 02/20/25 13:15 PFSH Acute PFSH: Medical History (Updated 03/02/25 @ 20:02 by Inessa Sandoval NP) Prepatellar bursitis, right knee Osteoarthritis of right knee Acute pain of right knee 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 BG well controlled with scheduled insulin -consistent carb diet as tolerated Parastomal hernia PETER (obstructive sleep apnea) History of bladder cancer Hx of intestinal obstruction Surgical History History of appendectomy History of cholecystectomy History of shoulder surgery History of urostomy History of esophageal hernia repair Family History Mother Thyroid disease Hypertension Father Hypertension Social History Smoking and tobacco/nicotine status: former use of tobacco/nicotine Quit status (tobacco/nicotine): has quit using Year quit tobacco: 2009 Former quit date comment: previously 4 ppd Alcohol intake: former Substance/Drug Use: never Lives independently: Yes Household members: other Details: brother Marital status: / Number of children: 1 Number of grandchildren: 2 service: No Current occupational status: retired and 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 On 4L NC (Baseline RA) HEENT: Normo-cephalic, atraumatic, grossly unremarkable exam Cardio: NSR, normal S1-S2 without any murmurs, rubs, or gallops and JVD normal Respiratory: Diminished bilateral upper and lower lobes on auscultation w/o any wheezes, rhonchi GI: Abd soft, non-tender, non-distended, normo-active bowel sounds present Neuro: Moves all extremities, no sensory deficits, Normal speech Behavior: Appropriate and cooperative Extremities: Adequate palpable pulses. No clubbing, cyanosis or edema, Full ROM Quick SOFA Score: Respiratory Rate: 31 Blood Pressure: 113/66 Khadijah Coma Scale: 15 qSOFA Score: 1 If qSOFA score 2 or greater, continue: PaO2/FiO2 Ratio (mmHg): 140 Blood Pressure Mean: 88 Bilirubin (mg/dl): 0.7 Platelets (x10?/ml): 140 Creatinine (mg/dl): 1.2 SOFA Score: 5 Evaluation: Current stage of sepsis: severe sepsis (With acute metabolic encephalopathy) Sepsis stage criteria used: [facility] Sep-1 and Sepsis-3 Focused Exam: Vital signs: Temp Pulse Resp BP Pulse Ox O2 Del Method O2 Flow Rate 03/02/25 16:49 102 H 113/66 95 03/02/25 16:42 99.6 F 101 H 31 H 128/68 96 Nasal Cannula 03/02/25 16:28 100.1 F H 03/02/25 15:36 102 H 29 H 108/59 94 03/02/25 14:26 112 H 142/79 98 03/02/25 13:21 103 F H 120 H 16 177/91 94 Nasal Cannula 4 Respiratory exam: diminished lung sounds Cardiovascular exam: tachycardia Peripheral pulse strength: 3+ Normal Peripheral pulse location: Radial Skin exam: pallor not present, not diaphoretic and no mottling Date exam was performed: 03/02/25 Time exam was performed: 19:02 Sepsis Screen No Definite Risk Today, 16:28 Respiratory Rate, (12 - 18) 31 breaths/min H Today, 16:42 Blood Pressure 113/66 mmHg Today, 16:49 Khadijah Coma Scale Score 15 Today, 16:43 Quick SOFA Score 1 Today, 19:30 SOFA Score: ABG PO2/FiO2 Ratio 140 Today, 13:50 Khadijah Coma Scale Score 15 Today, 16:43 Blood Pressure Mean 88 mmHg Today, 16:42 Total Bilirubin, (0.15-1.2) 0.7 mg/dL Today, 13:05 Platelet Count, (157-399) 140 10^3/cmm L Today, 13:05 Creatinine, (0.7-1.2) 1.2 mg/dL Today, 13:05 SOFA Score 5 Today, 19:30 Data 03/02/25 13:05 03/02/25 13:05 Other Labs: 03/02: CXR: Reviewed and results as follows: Cardiomegaly with central venous congestion and interstitial edema. Early congestive failure. 03/02: EKG 1323: ST, no ST changes, QRS 136, QTc 476, HR 121 03/02: EKG 1428: ST, no ST changes, QRS 130, QTc 466, HR 109 Micro: Microbiology 03/02/25 13:52 Blood Culture - Preliminary Blood SPECIMEN COLLECTED 03/02/25 13:54 Blood Culture - Preliminary Blood SPECIMEN COLLECTED A&P Assessment and plan 1. Severe sepsis: 2. Community acquired bacterial pneumonia: 3. Hypoxemia: 4. Acute metabolic encephalopathy: 5. Dyslipidemia: 6. PETER (obstructive sleep apnea): 7. History of bladder cancer: 8. Type 2 diabetes mellitus with other specified complication, unspecified whether remote computer terminal operator insulin use: 9. Primary hypertension: 10. Insulin dependent type 2 diabetes mellitus, uncontrolled: Plan: Severe Sepsis Acute metabolic Encephalopathy, resolved. CAP Hypoxemia - Patient requiring 4L NC w/ productive cough, baseline on RA - Pt with AMS on presentation to ED, during my evaluation pat was A&Ox4 - 03/02: CXR: Reviewed and results as follows: Cardiomegaly with central venous congestion and interstitial edema. Early congestive failure. - Recieved 1L NS bolus in ambulance, and 2L NS bolus in ED - Supplement oxygen as per protocol - Sputum cultures, ordered. - Blood cultures ordered, pending. - Urine antigens, legionella ordered, pending. - MRSA ordered, pending. - IV abx Levofloxacin 750mg - Albuterol inhalation PRN Complicated UTI - Hx of bladder cancer w/ urostomy placement - 03/02: UA: Urine bacteria 4+, Nitrite + - Urine cultures pending. - IV abx Levofloxacin 750 mg CHF - 03/02: CXR: Reviewed and results as follows: Cardiomegaly with central venous congestion and interstitial edema. Early congestive failure. - Dly wt, strict I&Os, cardiac diet - Titrate O2 as indicated - Lasix IVP 20 mg x 1 - Monitor CBC, CMP, Mag dly. CAD Dyslipidemia - Lipid panel ordered, pending - Continue home medications aspirin 81 mg PO dly, atorvastatin 40 mg PO dly, clopidogrel 75 mg PO Dly - Cardiac diet HTN - Continue home medications losartan 12.5mg PO dly DM2 CKD stage 2 Diabetic neuropathy - A1c ordered, pending. - Blood glucose monitoring, ACHS - Low regimen sliding scale - Hypoglycemic protocol - Cardiac Carb consistent diet - Continue home medication gabapentin 600 mg PO Q8H PETER - Does not wear cpap at home - Continuous pulse ox GERD - On home famotidine 40mg PO dly Non-pressure chronic ulcer right foot - Chronic wounds on his leg and feet, healing pretty well at this point. - Follows with Dr. Day outpt. - Some mild redness noted at the base of great toenail but no overt cellulitis noted. Hx of bladder cancer w/ urostomy placement CODE STATUS: Full Code VTE prophylaxis: Lovenox 30mg subq PDMP PDMP Reviewed: Not Reviewed Attestations Medical Necessity Statement*: Admitted under inpatient status. Given complexity of patient's presentation, co-morbid conditions, and required intensity of treatment, a hospitalization exceeding two midnights is anticipated. and High Time for a total of 79 minutes, includes reviewing past or interval history, examining/interviewing patient, placing orders, counseling patient/family/other support, updating patient/family/other support, discussing plan of care with staff, communicating with other healthcare providers, documenting encounter and coordinating care Diagnoses Community acquired bacterial pneumonia J15.9 Severe sepsis A41.9; R65.20 Hypoxemia R09.02 Dyslipidemia E78.5 Acute metabolic encephalopathy G93.41 PETER (obstructive sleep apnea) G47.33 History of bladder cancer Z85.51 Type 2 diabetes mellitus with other specified complication, unspecified whether remote computer terminal operator insulin use E11.69 Diabetes mellitus [facility] insulin use: unspecified remote computer terminal operator insulin use status Diabetes mellitus complication status: with other specified complication Primary hypertension I10 Hypertension type: primary hypertension Insulin dependent type 2 diabetes mellitus, uncontrolled
[2025-03-02 17:11] LABS: Lactic Acid level (Lactate) 2.6 mmol/L (0.5-2.2)
[2025-03-02] MEDS: FUROsemide 10 mg/mL SDV 2mL 20 MG IVP (18:48)
[2025-03-02] MEDS: linezolid premix 600 MG/300 ML PREMIX 300 MG IV (18:49)
[2025-03-02 19:22] LABS: Thyroid Stimulating Hormone 1.91 uIU/mL (0.27-4.20)
--- NOTE | 2025-03-02 19:23 | ECG_ITS ---
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 Measurements Intervals [place] Rate: 94 P: 17 AR: 159 QRS: -17 QRSD: 135 T: 5 QT: 369 QTc: 463 Interpretive Statements SINUS RHYTHM RIGHT BUNDLE BRANCH BLOCK [120+ ms QRS DURATION, UPRIGHT V1, 40+ ms S IN I/aVL/V4/V5/V6] Compared to ECG 03/02/2025 14:28:03 Left-axis deviation no longer present Electronically Signed On 03-03-2025 20:06:12 CHIP PERSON by Anup Doherty M.D. [id number] [id number]
[2025-03-02 19:33] LABS: Troponin 5 6HR 55.23 ng/L (0-15); Troponin 5 6HR Delta 7.23 ng/L (0-12)
[2025-03-02] MEDS: levofloxacin-dextrose 5 % 750 MG/150 ML PREMIX 100 MG IV (20:26)
[2025-03-02 20:34] LABS: Estmated Average Glucose 361; Hemoglobin A1C 14.2 % (4.0-6.0)
[2025-03-02 21:45] LABS: MRSA PCR OZH (swab) NOT DETECTED (Negative)
[2025-03-02 23:05] LABS: Coronavirus 229E,HKU1,NL63,OC4 Not Detected (NOT DETECT); Parainfluenza Virus Type 1 Not Detected (NOT DETECT); Parainfluenza Virus Type 2 Not Detected (NOT DETECT); Parainfluenza Virus Type 3 Not Detected (NOT DETECT); Parainfluenza Virus Type 4 Not Detected (NOT DETECT); SARS-COV-2 Not Detected (NOT DETECT)
[2025-03-03] VITALS (10 sets, daily range): BP systolic 91–136; BP diastolic 55–71; PULSE 64–116; RESP 17–24; TEMP 36.6–39.7; O2SAT 94–98; BMI 31.5
[2025-03-03 02:55] LABS: Hematocrit 39.0 % (37-53); Hemoglobin 12.80 g/dL (11.27-16.99); Mean Corpuscular HGB Conc 32.8 g/dL (30-55); Mean Corpuscular Hemoglobin 29.6 pg (27-33); Mean Corpuscular Volume 90.1 fl (82-101); Nucleated Red Blood Cells % 0 %; Platelet Count 125 10^3/cmm (157-399); Red Blood Count 4.33 10^6/uL (3.85-5.65); White Blood Count 7.75 10^3/uL (3.29-11.43)
[2025-03-03 03:34] LABS: Cholesterol 121 mg/dL (0-200); HDL Cholesterol 33 mg/dL (60-100); Triglycerides 140 mg/dL (0-150)
[2025-03-03 03:38] LABS: Alanine Aminotransferase 16 U/L (0-41); Albumin Level 3.4 g/dL (3.5-5.2); Alkaline Phosphatase 102 U/L (40-130); Anion Gap 11.4 (5-19); Aspartate Amino Transferase 19 U/L (0-40); Blood Urea Nitrogen 31 mg/dL (8-23); Calcium 8.2 mg/dL (8.5-10.5); Carbon Dioxide 29 mmol/L (22-29); Chloride 99 mmol/L (98-107); Globulin 3.0 g/dL (1.3-4.6); Glucose 96 mg/dL (65-115); Magnesium 1.6 mg/dL (1.7-2.3); Osmolality Calculated 286 mOsm/kg (285-295); Potassium 4.4 mmol/L (3.5-5.1); Sodium 135 mmol/L (136-145); Total Protein 6.4 g/dL (6.6-8.7)
--- NOTE | 2025-03-03 11:54 | P.PN_ITS ---
Subjective 2 Subjective: He feels little bit better today. He denies any purulent urine production. He denies any hematuria. He has a urostomy with neobladder, as well as complicated by longstanding hernia, although denies any issues with output. Had previously had hernia seen by urology and consideration was given to repair, however, decision was made to continue following up unless further issues develop. Vitals/I&O/Wt Last Vital Signs Temp 97.9 F 03/03/25 11:48 Pulse 64 03/03/25 11:48 Resp 20 H 03/03/25 11:48 BP 99/59 03/03/25 11:48 Pulse Ox 98 03/03/25 11:48 O2 Del Method Nasal Cannula 03/03/25 11:48 O2 Flow Rate 4 03/03/25 09:04 03/02/25 03/03/25 03/03/25 22:59 06:59 14:59 Intake Total 2550 / 2550 Output Total 750 / 750 400 / 1150 Balance 1800 / 1800 -400 / 1400 Weight last 48 hrs Weight 105.5 kg Weight 104.326 kg Physical Exam 2 Const: COMMON NORMALS: patient oriented x3 and alert GENERAL APPEARANCE: c ooperative ORIENTATION/CONSCIOUSNESS: Yes awake HENMT: COMMON NORMALS: oropharynx normal Neck/C-Spine: COMMON NORMALS: no JVD Resp: COMMON NORMALS: normal respiratory effort and clear to auscultation bilaterally AUSCULTATION: clear to auscultation bilaterally Cardio: COMMON NORMALS: no JVD, regular rhythm, S1 normal heart sound present, S2 normal heart sound present and No murmurs present (Cardio) RHYTHM: regular rhythm HEART SOUNDS: S1 normal heart sound present and S2 normal heart sound present GI: COMMON NORMALS: Normal to inspection, nondistended, normoactive bowel sounds present, Soft to palpation and non-tender PALPATION: Yes Soft to palpation OTHER: Right lower abdomen urostomy with surrounding herniation, soft, nontender, without any erythema, urostomy appears pink and perfused without any signs of ischemia. Amount of clear urine in the bag. Extremity: COMMON NORMALS: no joint enlargement GENERAL: Yes edema (trace) Neuro: COMMON NORMALS: patient oriented x3 and moves all extremities S ENSORIUM/ORIENTATION: Yes alert Skin: COMMON NORMALS: no rashes or lesions noted GENERAL SKIN EXAM: no rashes or lesions noted Data 03/03/25 02:23 03/03/25 02:23 Micro: Microbiology 03/02/25 13:54 Urine Culture - Preliminary Urine,Clean Catch Gram Negative Rods Gram Negative Rods#2 03/02/25 20:15 Bacterial Antigens - Final Urine,Voided 03/02/25 20:15 Legionella Urinary Antigen - Final Urine,Voided 03/02/25 13:52 Blood Culture - Preliminary Blood SPECIMEN COLLECTED 03/02/25 13:54 Blood Culture - Preliminary Blood SPECIMEN COLLECTED A&P Assessment and plan 1. Community acquired bacterial pneumonia: 2. Hypoxemia: 3. Dyslipidemia: 4. PETER (obstructive sleep apnea): 5. History of bladder cancer: 6. Type 2 diabetes mellitus with other specified complication, unspecified whether [facility] insulin use: 7. Primary hypertension: 8. Insulin dependent type 2 diabetes mellitus, uncontrolled: 9. Severe sepsis: 10. Acute metabolic encephalopathy: Plan: Severe Sepsis Acute metabolic Encephalopathy, resolved. CAP Hypoxemia Without worsening so far, continues on 4 L of oxygen. Not normally oxygen at home. Reports some mild to moderate cough, productive of sputum. Will see if we can collect a sample. Discussed with him congestive changes on chest x-ray but cannot entirely exclude pneumonia. Continue with empiric antibiotics at this time with possible pneumonia. Did receive a dose of 20 mg IV Lasix yesterday, discussed with him blood pressure is soft today, may be a barrier to diuresis. If blood pressure remains steady, will resume some IV diuretic with monitoring blood pressure. Monitor for scope hypotension. AMS resolved. Likely acute metabolic encephalopathy. 03/02: CXR: Reviewed and results as follows: Cardiomegaly with central venous congestion and interstitial edema. Early congestive failure. Discussed with nursing, protective services case worker. - Supplement oxygen as per protocol - Sputum cultures, ordered. - Blood cultures ordered, pending. Reviewed. - Urine antigens, legionella ordered, pending. Reviewed. - MRSA ordered, pending. Review, negative - IV abx Levofloxacin 750mg. Continue. - Albuterol inhalation PRN Complicated UTI Follow-up urine culture. Continue Levaquin. Febrile this morning. With lower back pain. 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 No evidence of incarceration. Will assess CT abdomen/pelvis. - Hx of bladder cancer w/ urostomy placement - 03/02: UA: Urine bacteria 4+, Nitrite + - Urine cultures pending. - IV abx Levofloxacin 750 mg. Monitor for risk of C. difficile CHF Acute diastolic CHF, prior echo reviewed, EF 60%. Grade 2 diastolic dysfunction. No RWMA. - 03/02: CXR: Reviewed and results as follows: Cardiomegaly with central venous congestion and interstitial edema. Early congestive failure. - Dly wt, strict I&Os, cardiac diet - Titrate O2 as indicated - Monitor CBC, CMP, Mag dly. Reviewed. Noted hypomagnesemia, supplement. Hypomagnesemia Supplement, will give 2 g IV magnesium. Recheck level CAD Dyslipidemia - Lipid panel ordered, pending - Continue home medications aspirin 81 mg PO dly, atorvastatin 40 mg PO dly, clopidogrel 75 mg PO Dly - Cardiac diet HTN -With soft blood pressure hold losartan 12.5mg PO dly DM2 CKD stage 2 Diabetic neuropathy - A1c ordered, pending. - Blood glucose monitoring, ACHS - Low regimen sliding scale - Hypoglycemic protocol - Cardiac Carb consistent diet - Continue home medication gabapentin 600 mg PO Q8H. With soft blood pressure will reduce to 300. PETER - Does not wear cpap at home - Continuous pulse ox GERD - On home famotidine 40mg PO dly Non-pressure chronic ulcer right foot - Chronic wounds on his leg and feet, healing pretty well at this point. - Follows with Dr. Day outpt. - Some mild redness noted at the base of great toenail but no overt cellulitis noted. Hx of bladder cancer w/ urostomy placement CODE STATUS: Full Code VTE prophylaxis: Lovenox 30mg subq PDMP PDMP Reviewed: Not Reviewed Attestations 2 Medical Necessity Statement*: Continue admission for assessment management of complicated UTI with urostomy, neobladder, possible pneumonia, acute CHF, supple pressure, JULY, hypomagnesemia, additional problems. and High MDM includes amount and/or complexity of data reviewed/ordered [ resulted lab(s)/test(s), ordered lab(s)/test(s) and other healthcare professional discussion] and described risk of complication, morbidity or mortality of management as documented Diagnoses Community acquired bacterial pneumonia J15.9 Hypoxemia R09.02 Dyslipidemia E78.5 PETER (obstructive sleep apnea) G47.33 History of bladder cancer Z85.51 Type 2 diabetes mellitus with other specified complication, unspecified whether [facility] insulin use E11.69 Diabetes mellitus complication status: with other specified complication Diabetes mellitus [facility] insulin use: unspecified [facility] insulin use status Primary hypertension I10 Hypertension type: primary hypertension Insulin dependent type 2 diabetes mellitus, uncontrolled Severe sepsis A41.9; R65.20 Acute metabolic encephalopathy G93.41
--- NOTE | 2025-03-03 11:57 | CTR_ITS ---
PROCEDURE INFORMATION: Exam: CT Abdomen And Pelvis Without Contrast Exam date and time: 03/03/2025 2:00 PM Age: 74 years old Clinical indication: Complicated UTI, lower back pain; Prior Surgery; Surgery Date: 6+ months; Surgery Type: colon TECHNIQUE: Imaging protocol: CT of the abdomen and pelvis without contrast. Radiation optimization: All CT scans at this facility use at least one of these dose optimization techniques: automated exposure control; mA and/or kV adjustment per patient size (includes targeted exams where dose is matched to clinical indication); or iterative reconstruction. COMPARISON: 1. [place] [id number] 04/13/2024 2:[address] abdomen pelvis w con* [id number] 09/18/2023 9:27 AM RADIATION DOSE METRICS: Total DLP (mGy-cm): 1086.93 FINDINGS: Pleural spaces: Small bilateral pleural effusions. Heart: Mild cardiomegaly is noted. Liver: Liver is normal in size. There are no masses. No intrahepatic duct dilatation. Gallbladder and biliary ducts: The gallbladder is surgically absent with clips in the gallbladder fossa. Pancreas: Pancreas is unremarkable. There are no masses. No pancreatic duct dilatation. Spleen: Spleen is normal in size and position. There are no splenic masses. Adrenal glands: The adrenal glands are normal. Kidneys and ureters: The kidneys are normal in size, with areas of likely cortical scarring. Mild perinephric stranding is seen bilaterally however this is not changed compared with March 2024. Calcifications are seen throughout both kidneys however most of these appear to be vascular. No hydronephrosis. No ureteral stones are noted. Ureters terminate in a bowel loop in the upper central pelvis representing ileal conduit. Stomach and bowel: Anastomotic changes in bowel loops in the right lower quadrant, the loops of which are actually present within the stomal hernia. This probably includes the cecum. No evidence of bowel obstruction. There are likely adhesions of bowel to the anterior peritoneal wall. Appendix: Appendix is not definitively visualized and probably surgically absent. Intraperitoneal space: No free fluid. No free air. Vasculature: Mild pulmonary vascular congestion. Moderate aortic atherosclerosis. No evidence of aortic aneurysm. There are atherosclerotic changes with likely stenosis involving the celiac, SMA and both renal arteries. Lymph nodes: No pathologically enlarged retroperitoneal adenopathy appreciated. Urinary bladder: Urinary bladder is surgically absent. Reproductive: Prostate gland is surgically absent. Bones/joints: There is no acute fracture or dislocation. Degenerative changes are seen in the lumbar spine prominently at L1-L2 and L3-L4. L3-L4 demonstrates vacuum phenomenon with a diffusely bulging disc with moderate central canal stenosis of 5 mm, unchanged from previous study. Soft tissues: Body wall demonstrates postsurgical changes in the abdominal midline. There is a large right sided stomal hernia, not significantly changed from prior study. Tiny amount of subcutaneous air in the left abdominal wall is likely related to medication injection. CT/CT abdomen pelvis wo con [id number] IMPRESSION: 1. Kidneys demonstrate nonspecific perinephric stranding bilaterally. UTI is not excluded. There is no evidence of obstructing urinary tract stones. Multiple calcifications are seen in both kidneys however these are felt to represent vascular calcifications not renal stones. 2. 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 No intra-abdominal fluid collections are appreciated. Small amount of ascites seen on previous study has resolved. 3. Cardiomegaly with small bilateral pleural effusions suggests possibility of mild heart failure.
[2025-03-03] MEDS: insulin glargine 100 units/1 mL 65 UNIT SUBCUT ×2 (12:30→20:40)
[2025-03-03] MEDS: magnesium sulfate premix 2 GM/50 ML PIGGYBACK IV (12:31)
[2025-03-03] MEDS: levofloxacin-dextrose 5 % 750 MG/150 ML PREMIX 100 MG IV (20:42)
[2025-03-04] VITALS (11 sets, daily range): BP systolic 99–113; BP diastolic 56–69; PULSE 81–106; RESP 16–29; TEMP 36.8–39.6; O2SAT 93–97
[2025-03-04] MEDS: oxyCODONE 5 mg IR Tab/Cap PO ×4 (01:28→14:53)
[2025-03-04 04:20] LABS: Hematocrit 38.4 % (37-53); Hemoglobin 12.60 g/dL (11.27-16.99); Mean Corpuscular HGB Conc 32.8 g/dL (30-55); Mean Corpuscular Hemoglobin 29.3 pg (27-33); Mean Corpuscular Volume 89.3 fl (82-101); Nucleated Red Blood Cells % 0 %; Platelet Count 128 10^3/cmm (157-399); Red Blood Count 4.30 10^6/uL (3.85-5.65); White Blood Count 7.52 10^3/uL (3.29-11.43)
[2025-03-04 04:35] LABS: Alanine Aminotransferase 16 U/L (0-41); Albumin Level 3.3 g/dL (3.5-5.2); Alkaline Phosphatase 100 U/L (40-130); Anion Gap 12.4 (5-19); Aspartate Amino Transferase 26 U/L (0-40); Blood Urea Nitrogen 32 mg/dL (8-23); Calcium 8.2 mg/dL (8.5-10.5); Carbon Dioxide 27 mmol/L (22-29); Chloride 100 mmol/L (98-107); Creatinine Clr Calc Pharmacy 54.2422; Globulin 3.4 g/dL (1.3-4.6); Glucose 158 mg/dL (65-115); Magnesium 1.9 mg/dL (1.7-2.3); Osmolality Calculated 290 mOsm/kg (285-295); Potassium 4.4 mmol/L (3.5-5.1); Sodium 135 mmol/L (136-145); Total Protein 6.7 g/dL (6.6-8.7)
[2025-03-04] MEDS: FUROsemide 10 mg/mL SDV 2mL 20 MG IVP (08:47)
--- NOTE | 2025-03-04 11:39 | PM.PN ---
Subjective Subjective: He reports he started to feel better. Fever curve has been improving. Vitals/I&O/Wt Last Vital Signs Temp 98.3 F 03/04/25 07:36 Pulse 91 03/04/25 11:37 Resp 20 H 03/04/25 11:37 BP 104/57 03/04/25 11:37 Pulse Ox 94 03/04/25 11:37 O2 Del Method Nasal Cannula 03/04/25 10:00 O2 Flow Rate 2 03/04/25 10:00 03/03/25 03/04/25 03/04/25 22:59 06:59 14:59 Intake Total 800 / 1040 480 / 480 Output Total 700 / 1500 Balance 800 / 240 -700 / -460 480 / 480 Weight last 48 hrs Weight 101.6 kg Weight 105.5 kg Weight 104.326 kg Physical Exam Const: COMMON NORMALS: patient oriented x3 and alert GENERAL APPEARANCE: cooperative ORIENTATION/CONSCIOUSNESS: Yes awake HENMT: COMMON NORMALS: oropharynx normal Neck/C-Spine: COMMON NORMALS: no JVD Resp: COMMON NORMALS: normal respiratory effort and clear to auscultation bilaterally AUSCULTATION: clear to auscultation bilaterally Cardio: COMMON NORMALS: no JVD, regular rhythm, S1 normal heart sound present, S2 normal heart sound present and No murmurs present (Cardio) RHYTHM: regular rhythm HEART SOUNDS: S1 normal heart sound present and S2 normal heart sound present GI: COMMON NORMALS: Normal to inspection, nondistended, normoactive bowel sounds present, Soft to palpation and non-tender PALPATION: Yes Soft to palpation OTHER: Right lower abdomen urostomy with surrounding herniation, soft, nontender, without any erythema, urostomy appears pink and perfused without any signs of ischemia. Amount of clear urine in the bag. Extremity: COMMON NORMALS: no joint enlargement and no pedal edema GENERAL: Yes edema (trace) Neuro: COMMON NORMALS: patient oriented x3 and moves all extremities SENSORIUM/ORIENTATION: Yes alert Skin: COMMON NORMALS: no rashes or lesions noted GENERAL SKIN EXAM: no rashes or lesions noted Data 03/04/25 03:43 03/04/25 03:43 Micro: Microbiology 03/02/25 13:54 Urine Culture - Preliminary Urine,Clean Catch Providencia rettgeri Gram Negative Rods#2 03/02/25 13:52 Blood Culture - Preliminary Blood NEGATIVE TO DATE 03/02/25 13:54 Blood Culture - Preliminary Blood NEGATIVE TO DATE 03/02/25 20:15 Bacterial Antigens - Final Urine,Voided A&P Assessment and plan 1. Community acquired bacterial pneumonia: 2. Hypoxemia: 3. Dyslipidemia: 4. PETER (obstructive sleep apnea): 5. History of bladder cancer: 6. Type 2 diabetes mellitus with other specified complication, unspecified whether terminologist insulin use: 7. Primary hypertension: 8. Insulin dependent type 2 diabetes mellitus, uncontrolled: 9. Severe sepsis: 10. Acute metabolic encephalopathy: Plan: Severe Sepsis Acute metabolic Encephalopathy, resolved. CAP Hypoxemia Hypoxia is improving, he is down to 2 L nasal cannula oxygen requirement. Continue treatment of possible pneumonia, as well as congestive heart failure. Given additional diuretic 20 mg IV push Lasix, caution with soft blood pressure, blood pressure 104/57. Reassess. Reviewed blood culture, remaining negative. Reviewed urine bacterial antigens, negative. Fever subsiding. Reviewed CBC, without leukocytosis. Discussed with nursing, case aide. Obtain home O2 evaluation. If continues to improve and urine cultures come back possible discharge in the morning. AMS resolved. Likely acute metabolic encephalopathy. 03/02: CXR: Reviewed and results as follows: Cardiomegaly with central venous congestion and interstitial edema. Early congestive failure. Complicated UTI Reviewed CT abdomen pelvis, noted perinephric stranding. Discussed with him findings of pyelonephritis. With recurrent UTI discussed with him would benefit from setting up follow-up with urology for reassessment of ileal conduit, with noted herniation, question of whether it may be contributing to his recurrent UTIs, although otherwise has been asymptomatic from it. He verbalized that he plans to do so. Follow-up urine culture. Continue Levaquin. Febrile this morning. With lower back pain. 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 No evidence of incarceration. Will assess CT abdomen/pelvis. - Hx of bladder cancer w/ urostomy placement - 03/02: UA: Urine bacteria 4+, Nitrite + - Urine cultures pending. - IV abx Levofloxacin 750 mg. Monitor for risk of C. difficile CHF Acute diastolic CHF, prior echo reviewed, EF 60%. Grade 2 diastolic dysfunction. No RWMA. - 03/02: CXR: Reviewed and results as follows: Cardiomegaly with central venous congestion and interstitial edema. Early congestive failure. - Dly wt, strict I&Os, cardiac diet - Titrate O2 as indicated - Monitor CBC, CMP, Mag dly. Reviewed. Noted hypomagnesemia, supplement. Hypomagnesemia Magnesium improved up to 1.9. Repeat level. CAD Dyslipidemia - Lipid panel ordered, pending - Continue home medications aspirin 81 mg PO dly, atorvastatin 40 mg PO dly, clopidogrel 75 mg PO Dly - Cardiac diet HTN -With soft blood pressure hold losartan 12.5mg PO dly DM2 CKD stage 2 Diabetic neuropathy - A1c ordered, pending. - Blood glucose monitoring, ACHS - Low regimen sliding scale - Hypoglycemic protocol - Cardiac Carb consistent diet - Continue home medication gabapentin 600 mg PO Q8H. With soft blood pressure will reduce to 300. PETER - Does not wear cpap at home - Continuous pulse ox GERD - On home famotidine 40mg PO dly Non-pressure chronic ulcer right foot - Chronic wounds on his leg and feet, healing pretty well at this point. - Follows with Dr. Day outpt. - Some mild redness noted at the base of great toenail but no overt cellulitis noted. Hx of bladder cancer w/ urostomy placement CODE STATUS: Full Code VTE prophylaxis: Lovenox 30mg subq PDMP PDMP Reviewed: Not Reviewed Attestations Medical Necessity Statement*: Continue admission for assessment management of complicated UTI with urostomy, neobladder, possible pneumonia, acute CHF, supple pressure, JULY, hypomagnesemia, additional problems. and High MDM includes amount and/or complexity of data reviewed/ordered [ resulted lab(s)/test(s), ordered lab(s)/test(s) and other healthcare professional discussion] and described risk of complication, morbidity or mortality of management as documented Diagnoses Community acquired bacterial pneumonia J15.9 Hypoxemia R09.02 Dyslipidemia E78.5 PETER (obstructive sleep apnea) G47.33 History of bladder cancer Z85.51 Type 2 diabetes mellitus with other specified complication, unspecified whether group home insulin use E11.69 Diabetes mellitus group home insulin use: unspecified terminologist insulin use status Diabetes mellitus complication status: with other specified complication Primary hypertension I10 Hypertension type: primary hypertension Insulin dependent type 2 diabetes mellitus, uncontrolled Severe sepsis A41.9; R65.20 Acute metabolic encephalopathy G93.41
[2025-03-04] MEDS: ondansetron 2 mg/ML SDV 2 mL 4 MG IVP (15:08)
--- NOTE | 2025-03-04 15:21 | PC.NURSE ---
Patient has urostomy in place attached to cabrera bag. Urostomy leaking. Performed linen change and bed bath.
--- NOTE | 2025-03-04 16:34 | PC.RESP ---
Pt not up for discharge, according to nursing, pt unable to have home o2 evaluation at this time.
[2025-03-04] MEDS: linezolid premix 600 MG/300 ML PREMIX 300 MG IV (18:17)
[2025-03-04] MEDS: levofloxacin-dextrose 5 % 750 MG/150 ML PREMIX 100 MG IV (20:59)
[2025-03-04] MEDS: insulin glargine 100 units/1 mL 65 UNIT SUBCUT (21:00)
[2025-03-05] VITALS (11 sets, daily range): BP systolic 91–125; BP diastolic 51–77; PULSE 75–97; RESP 18–35; TEMP 36.7–39.6; O2SAT 92–97
[2025-03-05 03:40] LABS: Hematocrit 35.4 % (37-53); Hemoglobin 11.60 g/dL (11.27-16.99); Mean Corpuscular HGB Conc 32.8 g/dL (30-55); Mean Corpuscular Hemoglobin 29.3 pg (27-33); Mean Corpuscular Volume 89.4 fl (82-101); Nucleated Red Blood Cells % 0 %; Platelet Count 125 10^3/cmm (157-399); Red Blood Count 3.96 10^6/uL (3.85-5.65); White Blood Count 9.31 10^3/uL (3.29-11.43)
[2025-03-05 04:29] LABS: Alanine Aminotransferase 18 U/L (0-41); Albumin Level 3.0 g/dL (3.5-5.2); Alkaline Phosphatase 94 U/L (40-130); Anion Gap 12.3 (5-19); Aspartate Amino Transferase 30 U/L (0-40); Blood Urea Nitrogen 32 mg/dL (8-23); Calcium 8.1 mg/dL (8.5-10.5); Carbon Dioxide 26 mmol/L (22-29); Chloride 98 mmol/L (98-107); Globulin 3.4 g/dL (1.3-4.6); Glucose 118 mg/dL (65-115); Magnesium 1.8 mg/dL (1.7-2.3); Osmolality Calculated 282 mOsm/kg (285-295); Potassium 4.3 mmol/L (3.5-5.1); Sodium 132 mmol/L (136-145); Total Protein 6.4 g/dL (6.6-8.7)
[2025-03-05] MEDS: linezolid premix 600 MG/300 ML PREMIX 300 MG IV ×2 (04:59→18:52)
[2025-03-05] MEDS: oxyCODONE 5 mg IR Tab/Cap PO ×2 (05:24→20:04)
[2025-03-05] MEDS: ondansetron 2 mg/ML SDV 2 mL 4 MG IVP (06:42)
[2025-03-05] MEDS: magnesium sulfate premix 1 GM/100 ML PIGGYBACK IV ×2 (08:31→20:07)
[2025-03-05] MEDS: albumin 25 G/100 ML BAG 60 G IV (08:32)
--- NOTE | 2025-03-05 08:54 | PC.NURSE ---
Pt is lethargic, weak and warm to touch Hospitalist in room, talking to pt and for plan of care. Dr Blanco noted fever and chills.
--- NOTE | 2025-03-05 09:50 | PM.CONSULT ---
Providers/Reason For Consult Consulting Physician/Specialty*: Dimas Pardo MD/ tele- nephrology Reason for Consult*: Acute kidney injury electrolyte abnormalities Requesting Physician: Dr. Blanco Attending Physician: Greg Blanco Primary Care Provider: Ivett Still MD History of Present Illness History of Present Illness Cole Troncoso is a 74 year old male history of diabetes mellitus with diabetic neuropathy and ulcers, PVD CAD hypertension hyperlipidemia sleep apnea not using his CPAP. Patient has history of bladder cancer status post urostomy placements, GERD restless leg syndrome. Patient was admitted with fevers altered mental status shortness of breath for 1 week creased weakness cough. On admission patient's creatinine was 1.2 which is his baseline patient was started on meropenem linezolid and IV fluids in the emergency room on March 02, 2025. Patient was also given IV fluids patient has underlying history of bladder cancer status post cystectomy and urostomy placement patient was then given furosemide 20 mg IV continued on his losartan. By March 03 he was continuing on Levaquin losartan was held as blood pressure was low. Fever continues. Creatinine was rising patient was initiated with furosemide. creatinine continues to rise and renal was called to see the patient as creatinine is currently 1.8 mg/dL. Up from his baseline of 1.1 to 1.3 mg/dL. Patient has underlying HFpEF. Patient denies using NSAIDs. Review of Systems Narrative: Weak short of breath leg pains wobbly lightheaded dizzy improving fevers positive cough with sputum. Nausea shortness of breath pleuritic chest pain patient has a hernia by his urostomy site. Rest review systems negative except as above Medications/Allergies Home Medications ?Medication ?Instructions ?Recorded ?Confirmed ?Last Taken ?Type [place] boot #1 ea 08/21/24 03/02/25 Unknown Rx carbon fiber afo #1 ea 12/20/24 03/02/25 Unknown Rx albuterol sulfate 90 mcg/actuation 2 inh inhalation Q4H PRN shortness 12/25/24 03/02/25 Unknown Rx aerosol inhaler of breath or wheezing #18 grams aspirin 81 mg tablet,delayed 81 mg PO DAILY #90 tabs 12/25/24 03/02/25 03/02/25 Rx release atorvastatin 40 mg tablet (Lipitor) 40 mg PO DAILY #90 tabs 12/25/24 03/02/25 03/02/25 Rx clopidogrel 75 mg tablet 75 mg PO DAILY #90 tabs 12/25/24 03/02/25 03/02/25 Rx flash glucose sensor (FreeStyle #2 ea 12/25/24 03/02/25 Unknown Rx Jenae 2 Sensor kit) fluticasone propionate 50 1 spray intranasal DAILY PRN nasal 12/25/24 03/02/25 03/02/25 Rx mcg/actuation nasal congestion #16 grams spray,suspension (Flonase Allergy Relief) gabapentin 600 mg tablet 600 mg PO Q8H #270 tabs 12/25/24 03/02/25 03/02/25 Rx insulin glargine 100 unit/mL (3 65 unit (0.65 mL) SUBCUT BID #15 mL 12/25/24 03/02/25 03/02/25 Rx mL) subcutaneous pen (Lantus Solostar U-100 Insulin) insulin lispro 100 unit/mL 15 unit (0.15 mL) SUBCUT TID #15 mL 12/25/24 03/02/25 03/02/25 Rx subcutaneous pen (Humalog KwikPen (U-100) Insulin) ropinirole 4 mg tablet 8 mg (2 x 4 mg) PO BID #360 tabs 12/25/24 03/02/25 03/02/25 Rx famotidine 40 mg tablet 40 mg PO BID #180 tabs 01/01/25 03/02/25 03/02/25 Rx losartan 25 mg tablet 12.5 mg (1/2 x 25 mg) PO DAILY #45 01/01/25 03/02/25 03/02/25 Rx tabs flash glucose scanning reader #1 ea 01/16/25 03/02/25 Unknown Rx (FreeStyle Jenae 2 Stand[place]) Diabetic shoe with Custom #1 ea 01/23/25 03/02/25 Unknown Rx accommodative insoles Allergies Allergy/AdvReac Type Severity Reaction Status Date / Time Penicillins Allergy ALGY-Hives Verified 02/20/25 13:15 Current Medications Generic Name Dose Route Start Last Admin Trade Name Freq PRN Reason Stop Dose Admin Acetaminophen 650 mg 03/02/25 16:42 03/04/25 20:52 Acetaminophen 325 Mg Tablet PO 650 mg Q6H PRN Administration Mild/Mod Pain Or Temp >/= 101 Albuterol Sulfate 2.5 mg 03/02/25 17:02 03/04/25 10:34 Albuterol 2.5 Mg/3 Ml Neb INHALATION 2.5 mg Q4H PRN Administration shortness of breath or wheezing Aspirin 81 mg 03/03/25 05:00 03/05/25 04:58 Aspirin 81 Mg Ec Tablet PO 81 mg DAILY RAFAELA Administration Atorvastatin Calcium 40 mg 03/03/25 05:00 03/05/25 04:59 Atorvastatin 40 Mg Tablet PO 40 mg DAILY RAFAELA Administration Clopidogrel Bisulfate 75 mg 03/03/25 05:00 03/05/25 04:58 Clopidogrel 75 Mg Tablet PO 75 mg DAILY RAFAELA Administration Docusate Sodium 100 mg 03/02/25 17:00 03/05/25 05:07 Docusate Sodium 100 Mg Capsule PO Not Given BID RAFAELA Enoxaparin Sodium 30 mg 03/02/25 16:45 03/04/25 16:43 Enoxaparin 30 Mg/0.3 Ml Syringe SUBCUT 30 mg Q24H RAFAELA Administration Famotidine 40 mg 03/03/25 18:00 03/05/25 04:58 Famotidine 20 Mg Tablet PO 40 mg BID RAFAELA Administration Gabapentin 300 mg 03/03/25 12:11 03/05/25 04:59 Gabapentin 300 Mg Capsule PO 300 mg Q8H RAFAELA Administration Levofloxacin/Dextrose 750 mg in 150 mls @ 100 mls/hr 03/02/25 20:15 03/04/25 23:27 Levaquin-D5w IV Infused Q24H RAFAELA Infusion Protocol Linezolid 600 mg in 300 mls @ 300 mls/hr 03/04/25 17:45 03/05/25 06:11 Zyvox Premix IV Infused Q12H RAFAELA Infusion Protocol Insulin Glargine 65 unit 03/03/25 12:05 03/04/25 21:00 Insulin Glargine 100 Units/1 Ml SUBCUT 65 unit BEDTIME RAFAELA Administration Insulin Human Lispro 0 unit 03/02/25 18:00 03/05/25 08:55 Insulin Lispro 100 Unit/1 Ml SUBCUT 4 unit WM&BEDTIME RAFAELA Administration Protocol Losartan Potassium 12.5 mg 03/03/25 05:00 03/03/25 08:19 Losartan 25 Mg Tablet PO Not Given On Hold: 03/03/25 12:10 DAILY RAFAELA Ondansetron HCl 4 mg 03/02/25 16:42 03/05/25 06:42 Ondansetron 2 Mg/Ml Sdv 2 Ml IVP 4 mg Q8H PRN Administration vomiting, or N/V if npo Oxycodone HCl 5 mg 03/04/25 01:20 03/05/25 05:24 Oxycodone 5 Mg Ir Tab/Cap PO 5 mg Q4H PRN Administration MODERATE PAIN Ropinirole HCl 8 mg 03/04/25 09:45 03/05/25 04:58 Ropinirole 2 Mg Tablet PO 8 mg BID RAFAELA Administration PFSH Acute PFSH: Medical History (Updated 03/05/25 @ 10:00 by Anjel Pardo MD) Prepatellar bursitis, right knee Osteoarthritis of right knee Acute pain of right knee 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 BG well controlled with scheduled insulin -consistent carb diet as tolerated Parastomal hernia PETER (obstructive sleep apnea) History of bladder cancer Hx of intestinal obstruction Surgical History History of appendectomy History of cholecystectomy History of shoulder surgery History of urostomy History of esophageal hernia repair Family History Mother Thyroid disease Hypertension Father Hypertension Social History Smoking and tobacco/nicotine status: former use of tobacco/nicotine Quit status (tobacco/nicotine): has quit using Year quit tobacco: 2009 Former quit date comment: previously 4 ppd Alcohol intake: former Substance/Drug Use: never Lives independently: Yes Household members: other Details: brother Marital status: / Number of children: 1 Number of grandchildren: 2 service: No Current occupational status: retired and 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 gender identity: Male Special jose carlos needs: No Agree to transfusion: Yes Vitals/I&O/Wt Last Vital Signs Temp 99.2 F 03/05/25 07:35 Pulse 95 03/05/25 07:35 Resp 29 H 03/05/25 07:35 BP 112/77 03/05/25 07:35 Pulse Ox 94 03/05/25 07:35 O2 Del Method Nasal Cannula 03/05/25 04:00 O2 Flow Rate 3 03/04/25 16:17 03/04/25 03/05/25 03/05/25 22:59 06:59 14:59 Intake Total 540 / 1500 450 / 1950 100 / 100 Output Total 425 / 1225 Balance 540 / 700 25 / 725 100 / 100 Weight last 48 hrs Weight 103.5 kg Weight 103.5 kg Weight 101.6 kg Physical Exam Narrative: Patient remains febrile as of last night Tmax 103.2. Blood pressure improving was as low as 91/57. Vital signs noted. HEENT normocephalic atraumatic Neck is supple Lungs have crackles and rhonchi. Heart regular positive S1-S2. Abdomen is soft positive bowel sounds positive ostomy with hernia around it. Extremities do not have edema does have poor pulses and ulcers on left ankle and right foot. Poor distal pulses. Neuro awake alert oriented x 3 Data 03/05/25 02:12 03/05/25 02:12 Micro: Microbiology 03/02/25 13:54 Blood Culture - Preliminary Blood Coag positive Staphylococcus 03/02/25 13:54 Urine Culture - Preliminary Urine,Clean Catch Providencia rettgeri Gram Negative Rods#2 A&P Assessment and plan 1. Acute kidney injury: 74-year-old man underlying diabetes with neuropathy, peripheral vascular disease, heart failure preserved EF, CAD, hyperlipidemia, obstructive sleep apnea. Patient is here with infection presumed pneumonia versus UTI his urine is growing out proper dentia and gram-negative rods he is 1 blood culture positive for coag positive Staphylococcus. He is urinalysis has a pH of 8.52+ protein trace blood positive nitrites, 4+ bacteria 6-10 white cells and hyaline cast. The patient is developed acute kidney injury here. I am concerned for ATN from hypotension versus effective intravascular volume depletion. The patient appears very short of breath will repeat his chest x-ray and dose him with furosemide at this time. Acute kidney injury in this patient can be cardiorenal versus ATN versus prerenal have to be concerned about infection related GN. Will send complements. Will also check a CPK to rule out rhabdomyolysis. Patient received antibiotics he does not have a rash or eosinophilia to be concerned for interstitial nephritis. -Patient has CT scan in March 03, 2025 with normal-sized kidneys however there are areas of cortical scarring can be concerned about embolic disease. There was also mild perinephric stranding not changed since March 2024. No hydronephrosis. Recommendations repeat chest x-ray, check echo, send urine electrolytes urine microalbumin protein and creatinine. Avoid nephrotoxic agents renal dose medications consider decreasing gabapentin. Patient denies any NSAID use. Monitor daily chemistries. Hyponatremia send urine electrolytes monitor with furosemide. Check TSH. Check a.m. cortisol level. Patient was seen and examined with aid of a nurse using A/V equipment. The patient consented to telehealth Plan: See above. PDMP PDMP Reviewed: Not Reviewed Consult Attestations Medical Necessity Statement: Febrile hypotensive, acute kidney injury hyponatremia Time Spent in Patient Care: Greater than 35 minutes (>than 50% of time spent in counselling and/or direct pt care on unit). Coding Level of Care Code Acute Code for [facility] Diagnoses Acute kidney injury N17.9
--- NOTE | 2025-03-05 10:05 | USCV_ITS ---
Cole Troncoso Age: 74 Gender: M : 1950 Exam Date: 03/05/2025 15:32 Ordering Phys: Anjel Pardo MD Technologist: REGINE Exam Location: [facility] – [place] Indication: chf BP: 104 / 56 HR: 85 Rhythm: Sinus Technical Quality: Adequate MEASUREMENTS (Male / Female) Normal Values 2D ECHO LV Diastolic Diameter PLAX 5.7 cm 4.2 - 5.9 / 3.9 - 5.3 cm IVS Diastolic Thickness 0.8 cm 0.6 - 1.0 / 0.6 - 0.9 cm IVS Systolic Thickness 0.9 cm LVPW Diastolic Thickness 0.9 cm 0.6 - 1.0 / 0.6 - 0.9 cm LVPW Systolic Thickness 1.0 cm LVOT Diameter 2.0 cm LV Ejection Fraction 2D Teich 25.6 % LV Ejection Fraction MOD 4C 61.9 % LV Ejection Fraction MOD 2C 51.0 % LV Ejection Fraction 2C AL 52.9 % LA Diameter 2.2 cm RA Systolic Volume 4C AL 36.1 ml RA Systolic Volume 4C MOD 33.0 ml LA Sys Volume AL 41.1 cm cubed LA Sys Volume Index AL 17.7 cm cubed/m squared Aorta at Sinotubular Diameter 2.4 cm IVC Diameter 1.7 cm M-MODE LA Ao Ratio MM 0.9 AV Cusp Separation MM 2.3 cm DOPPLER AV Peak Velocity 137.0 cm/s LVOT Peak Velocity 131.0 cm/s AV Area Cont Eq vti 3.7 cm squared AV Area Cont Eq pk 3.0 cm squared MV Peak Velocity 107.0 cm/s MV Area PHT 4.5 cm squared Mitral E to A Ratio 0.9 TR Peak Velocity 107.0 cm/s TR Peak Gradient 4.6 mmHg TV Peak E Velocity 72.0 cm/s PV Peak Velocity 79.0 cm/s FINDINGS Left Ventricle Normal left ventricular size and systolic function, EF 61%. No regional wall motion abnormalities. Grade I/IV diastolic dysfunction (abnormal relaxation filling pattern), normal to mildly elevated filling pressures. Right Ventricle Normal right ventricular size and systolic function. Right Atrium Normal right atrial size. Left Atrium Normal left atrial size. IA Septum Normal appearance of the interatrial septum. Mitral Valve Thickened mitral valve. Aortic Valve Thickened aortic valve. Tricuspid Valve No gross abnormalities noted Pulmonic Valve No gross abnormalities noted Pericardium No pericardial effusion. Aorta Normal aortic annulus size. IVC Normal inferior vena cava. CONCLUSIONS Normal left ventricular size and systolic function, EF 61%. No regional wall motion abnormalities. Grade I/IV diastolic dysfunction (abnormal relaxation filling pattern), normal to mildly elevated filling pressures. Normal cardiac chamber sizes. Thickened mitral valve. Thickened aortic valve. There is no pericardial effusion. There are no intracardiac masses. Compared to the study from 04/13/2024, there may not be a significant change. Dr Ha Cisneros MD [facility] (Electronically Signed) Final Date: 05 March 2025 17:21 S
--- NOTE | 2025-03-05 10:08 | XRR_ITS ---
PROCEDURE INFORMATION: Exam: XR Chest Exam date and time: 03/05/2025 11:15 AM Age: 74 years old Clinical indication: Cardiovascular condition or disease; Congestive heart failure (chf); Other: Not specified; Fever and shortness of breath; Additional info: Chf, SOB, fevers TECHNIQUE: Imaging protocol: Radiologic exam of the chest. Views: 2 views. COMPARISON: CR XR chest 1V portable [id number] 03/02/2025 2:14 PM FINDINGS: Lungs: There is improved inspiratory effort on the current x-ray. There is central peribronchial cuffing. Central pulmonary vasculature is mildly indistinct as well. Pleural spaces: Unremarkable. No pleural effusion. No pneumothorax. Heart/Mediastinum: Cardiac silhouette is normal. Bones/joints: Unremarkable. XR/XR chest 2V insp/exp [id number] IMPRESSION: 1. No definitive cardiomegaly. 2. Findings suggest bronchitis. Mild vascular congestion can not be excluded.
--- NOTE | 2025-03-05 10:50 | PC.SOCIAL ---
IMM Updated Updated pt on IMM. No questions voiced. Provided pt a copy. Initialed, dated, & timed a copy & placed in chart.
[2025-03-05] MEDS: FUROsemide 10 mg/mL SDV 4mL 40 MG IVP (11:14)
[2025-03-05 11:39] LABS: Thyroid Stimulating Hormone 0.73 uIU/mL (0.27-4.20); Uric Acid 6.7 mg/dL (3.4-7.0)
[2025-03-05 11:51] LABS: Glucose Urine UA Negative (Normal); Nitrate Urine Negative (Negative); Specific Gravity, Urine 1.013 (1.005-1.030)
[2025-03-05 12:12] LABS: Potassium, Radom Urine 28 mmol/L; Urine Random Sodium 46 mmol/L
[2025-03-05 12:14] LABS: Urine Random Chloride 16 mmol/L
--- NOTE | 2025-03-05 18:36 | P.PN_ITS ---
Subjective 2 Subjective: He is having lower back pain. Fever today appears to have subsided today. Vitals/I&O/Wt Last Vital Signs Temp 99.2 F 03/05/25 07:35 Pulse 97 03/05/25 16:00 Resp 19 H 03/05/25 16:00 BP 125/61 03/05/25 16:00 Pulse Ox 95 03/05/25 16:00 O2 Del Method Nasal Cannula 03/05/25 11:43 O2 Flow Rate 2 03/05/25 11:43 03/05/25 03/05/25 03/05/25 06:59 14:59 22:59 Intake Total 450 / 1950 440 / 440 240 / 680 Output Total 425 / 1225 1100 / 1100 675 / 1775 Balance -660 / -660 -435 / -1095 Weight last 48 hrs Weight 103.5 kg Weight 103.5 kg Weight 101.6 kg Physical Exam 2 Narrative: Accompanied by his . Const: COMMON NORMALS: patient oriented x3 and alert GENERAL APPEARANCE: c ooperative ORIENTATION/CONSCIOUSNESS: Yes awake HENMT: COMMON NORMALS: oropharynx normal Neck/C-Spine: COMMON NORMALS: no JVD Resp: COMMON NORMALS: normal respiratory effort and clear to auscultation bilaterally AUSCULTATION: clear to auscultation bilaterally Cardio: COMMON NORMALS: no JVD, regular rhythm, S1 normal heart sound present, S2 normal heart sound present and No murmurs present (Cardio) RHYTHM: regular rhythm HEART SOUNDS: S1 normal heart sound present and S2 normal heart sound present GI: COMMON NORMALS: Normal to inspection, nondistended, normoactive bowel sounds present, Soft to palpation and non-tender PALPATION: Yes Soft to palpation OTHER: Right lower abdomen urostomy with surrounding herniation, soft, nontender, without any erythema, urostomy appears pink and perfused without any signs of ischemia. Amount of clear urine in the bag. Extremity: COMMON NORMALS: no joint enlargement and no pedal edema GENERAL: Yes edema (trace) Neuro: COMMON NORMALS: patient oriented x3 and moves all extremities S ENSORIUM/ORIENTATION: Yes alert Skin: COMMON NORMALS: no rashes or lesions noted GENERAL SKIN EXAM: no rashes or lesions noted Data 03/05/25 02:12 03/05/25 02:12 Micro: Microbiology 03/02/25 13:54 Blood Culture - Preliminary Blood Staphylococcus aureus 03/02/25 13:54 Urine Culture - Final Urine,Clean Catch Providencia rettgeri Serratia fonticola 03/05/25 10:57 Blood Culture - Preliminary Blood SPECIMEN COLLECTED 03/05/25 10:55 Blood Culture - Preliminary Blood SPECIMEN COLLECTED A&P Assessment and plan 1. Community acquired bacterial pneumonia: 2. Hypoxemia: 3. Dyslipidemia: 4. PETER (obstructive sleep apnea): 5. History of bladder cancer: 6. Type 2 diabetes mellitus with other specified complication, unspecified whether intermediate designer insulin use: 7. Primary hypertension: 8. Insulin dependent type 2 diabetes mellitus, uncontrolled: 9. Severe sepsis: 10. Acute metabolic encephalopathy: Plan: Severe Sepsis Acute metabolic Encephalopathy, resolved. CAP Hypoxemia Recurren/persistent fevers. Pyelonephritis with noted bacterial growth in urine. PreviDent today, Bridgett I did find on review of cultures today. Leahatia is MDRO, including resistance to quinolones. Possible reason for lack of response. Switch from Levaquin to meropenem. Renally dosed. Monitor for scope seizure. Some respiratory symptoms with pneumonia superimposed on some degree of CHF not excluded. Hypoxia is improving, he is down to 2 L nasal cannula oxygen requirement. Continue treatment of possible pneumonia, as well as congestive heart failure. Concern for rising creatinine with worsening renal function, concern for possible prerenal etiology discussed with nephrology. However, concern for concomitant CHF, possible congestive nephropathy as per nephrology. Trial of additional Lasix today. Repeat chemistry. Monitor blood pressure. Monitor for risk of electrolyte abnormality, worsening JULY. Reviewed blood culture, remaining negative. Reviewed urine bacterial antigens, negative. Reviewed CBC, without leukocytosis. Discussed with nursing, family preservation caseworker. If continues to improve and urine cultures come back possible discharge in the morning. AMS resolved. Likely acute metabolic encephalopathy. 03/02: CXR: Reviewed and results as follows: Cardiomegaly with central venous congestion and interstitial edema. Early congestive failure. Abnormal blood culture: Staph aureus in 1/4 bottles, MSSA. Unclear if contaminant but concern would be for possible infection. Blood cultures repeated. Yesterday antibiotics were expanded with linezolid, however, would have been covered by Levaquin. TTE is ordered. Complicated UTI Reviewed CT abdomen pelvis, noted perinephric stranding. Discussed with him findings of pyelonephritis. With recurrent UTI discussed with him would benefit from setting up follow-up with urology for reassessment of ileal conduit, with noted herniation, question of whether it may be contributing to his recurrent UTIs, although otherwise has been asymptomatic from it. He verbalized that he plans to do so. Follow-up urine culture. Continue Levaquin. Febrile this morning. With lower back pain. 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 No evidence of incarceration. Will assess CT abdomen/pelvis. - Hx of bladder cancer w/ urostomy placement - 03/02: UA: Urine bacteria 4+, Nitrite + - Urine cultures pending. - IV abx Levofloxacin 750 mg. Monitor for risk of C. difficile CHF Acute diastolic CHF, prior echo reviewed, EF 60%. Grade 2 diastolic dysfunction. No RWMA. Difficult to gauge volume status although has had congestive changes on chest x-ray. Persistent hypoxia. - 03/02: CXR: Reviewed and results as follows: Cardiomegaly with central venous congestion and interstitial edema. Early congestive failure. - Dly wt, strict I&Os, cardiac diet - Titrate O2 as indicated - Monitor CBC, CMP, Mag dly. Reviewed. Noted hypomagnesemia, supplement. Hypomagnesemia Magnesium improved up to 1.8. Will give additional 1 g. Repeat level. CAD Dyslipidemia - Lipid panel ordered, pending - Continue home medications aspirin 81 mg PO dly, atorvastatin 40 mg PO dly, clopidogrel 75 mg PO Dly - Cardiac diet HTN -With soft blood pressure hold losartan 12.5mg PO dly DM2 CKD stage 2 Diabetic neuropathy - A1c ordered, pending. - Blood glucose monitoring, ACHS - Low regimen sliding scale - Hypoglycemic protocol - Cardiac Carb consistent diet - Continue home medication gabapentin 600 mg PO Q8H. With soft blood pressure will reduce to 300. PETER - Does not wear cpap at home - Continuous pulse ox GERD - On home famotidine 40mg PO dly Non-pressure chronic ulcer right foot - Chronic wounds on his leg and feet, healing pretty well at this point. - Follows with Dr. Day outpt. - Some mild redness noted at the base of great toenail but no overt cellulitis noted. Hx of bladder cancer w/ urostomy placement CODE STATUS: Full Code VTE prophylaxis: Lovenox 30mg subq PDMP PDMP Reviewed: Not Reviewed Attestations 2 Medical Necessity Statement*: Continue admission for assessment management of complicated UTI with urostomy, neobladder, possible pneumonia, acute CHF, supple pressure, JULY, hypomagnesemia, additional problems. and High MDM includes amount and/or complexity of data reviewed/ordered [ resulted lab(s)/test(s), ordered lab(s)/test(s) and other healthcare professional discussion] and described risk of complication, morbidity or mortality of management as documented Diagnoses Community acquired bacterial pneumonia J15.9 Hypoxemia R09.02 Dyslipidemia E78.5 PETER (obstructive sleep apnea) G47.33 History of bladder cancer Z85.51 Type 2 diabetes mellitus with other specified complication, unspecified whether intermediate designer insulin use E11.69 Diabetes mellitus complication status: with other specified complication Diabetes mellitus long-term insulin use: unspecified long-term insulin use status Primary hypertension I10 Hypertension type: primary hypertension Insulin dependent type 2 diabetes mellitus, uncontrolled Severe sepsis A41.9; R65.20 Acute metabolic encephalopathy G93.41
--- NOTE | 2025-03-05 20:01 | PC.NURSE ---
called in prescriptions to [facility] pharmacy since the pharmacy is close, pt is advice to pick up driver the 2 other meds that were called in such as levaquin and symbicort. work release provided to pt.
[2025-03-05] MEDS: meropenem 1,000 mg SDV 1000 MG IVP (20:07)
[2025-03-05] MEDS: insulin glargine 100 units/1 mL 65 UNIT SUBCUT (21:14)
[2025-03-06] VITALS (11 sets, daily range): BP systolic 92–112; BP diastolic 54–67; PULSE 76–89; RESP 16–28; TEMP 36.6–38; O2SAT 91–97
[2025-03-06] MEDS: oxyCODONE 5 mg IR Tab/Cap PO ×3 (04:56→12:59)
[2025-03-06] MEDS: linezolid premix 600 MG/300 ML PREMIX 300 MG IV ×2 (04:59→18:16)
[2025-03-06 08:14] LABS: Hematocrit 35.7 % (37-53); Hemoglobin 11.60 g/dL (11.27-16.99); Mean Corpuscular HGB Conc 32.5 g/dL (30-55); Mean Corpuscular Hemoglobin 28.9 pg (27-33); Mean Corpuscular Volume 89.0 fl (82-101); Nucleated Red Blood Cells % 0 %; Platelet Count 131 10^3/cmm (157-399); Red Blood Count 4.01 10^6/uL (3.85-5.65); White Blood Count 9.40 10^3/uL (3.29-11.43)
[2025-03-06 08:39] LABS: Alanine Aminotransferase 22 U/L (0-41); Albumin Level 2.8 g/dL (3.5-5.2); Alkaline Phosphatase 91 U/L (40-130); Anion Gap 17.0 (5-19); Aspartate Amino Transferase 40 U/L (0-40); Blood Urea Nitrogen 37 mg/dL (8-23); Calcium 8.2 mg/dL (8.5-10.5); Carbon Dioxide 22 mmol/L (22-29); Chloride 94 mmol/L (98-107); Globulin 3.7 g/dL (1.3-4.6); Glucose 93 mg/dL (65-115); Osmolality Calculated 276 mOsm/kg (285-295); Potassium 4.0 mmol/L (3.5-5.1); Sodium 129 mmol/L (136-145); Total Protein 6.5 g/dL (6.6-8.7)
[2025-03-06] MEDS: meropenem 1,000 mg SDV 1000 MG IVP ×2 (08:48→21:03)
[2025-03-06] MEDS: FUROsemide 10 mg/mL SDV 4mL 40 MG IVP (11:28)
--- NOTE | 2025-03-06 13:57 | PM.CONSULT ---
Providers/Reason For Consult Consulting Physician/Specialty*: Noble Day D.P.M. Reason for Consult*: Right foot wound Attending Physician: Greg Blanco Primary Care Provider: Ivett Still MD History of Present Illness History of Present Illness Cole Troncoso is a 74 year old male admitted for UTI has bacteremia, exploring source, leading differential is UTI, chronic wound right foot also needs to be evaluated for potential source of infection. Review of Systems General: Reports: 10 or more systems reviewed and unremarkable except in HPI and below Const: Denies: fever(s) or chills Eyes: Denies: change in vision Card: Denies: chest pain or palpitations Resp: Denies: dyspnea or productive cough GI: Denies: abdominal pain, nausea or vomiting : Denies: flank pain Musc: Reports: extremity swelling, joint stiffness and deformity Skin/Breast: Reports: erythema, sores, changes in skin color, dry skin, nail changes and change in hair Neuro: Reports: numbness in extremities, sensory changes and difficulty walking Psych: Denies: suicidal ideation Endo: Denies: change in body appearance Alfredo/Lymph: Denies: tender lymph nodes Medications/Allergies Home Medications ?Medication ?Instructions ?Recorded ?Confirmed ?Last Taken ?Type PALA boot #1 ea 08/21/24 03/02/25 Unknown Rx carbon fiber afo #1 ea 12/20/24 03/02/25 Unknown Rx albuterol sulfate 90 mcg/actuation 2 inh inhalation Q4H PRN shortness 12/25/24 03/02/25 Unknown Rx aerosol inhaler of breath or wheezing #18 grams aspirin 81 mg tablet,delayed 81 mg PO DAILY #90 tabs 12/25/24 03/02/25 03/02/25 Rx release atorvastatin 40 mg tablet (Lipitor) 40 mg PO DAILY #90 tabs 12/25/24 03/02/25 03/02/25 Rx clopidogrel 75 mg tablet 75 mg PO DAILY #90 tabs 12/25/24 03/02/25 03/02/25 Rx flash glucose sensor (FreeStyle #2 ea 12/25/24 03/02/25 Unknown Rx Jenae 2 Sensor kit) fluticasone propionate 50 1 spray intranasal DAILY PRN nasal 12/25/24 03/02/25 03/02/25 Rx mcg/actuation nasal congestion #16 grams spray,suspension (Flonase Allergy Relief) gabapentin 600 mg tablet 600 mg PO Q8H #270 tabs 12/25/24 03/02/25 03/02/25 Rx insulin glargine 100 unit/mL (3 65 unit (0.65 mL) SUBCUT BID #15 mL 12/25/24 03/02/25 03/02/25 Rx mL) subcutaneous pen (Lantus Solostar U-100 Insulin) insulin lispro 100 unit/mL 15 unit (0.15 mL) SUBCUT TID #15 mL 12/25/24 03/02/25 03/02/25 Rx subcutaneous pen (Humalog KwikPen (U-100) Insulin) ropinirole 4 mg tablet 8 mg (2 x 4 mg) PO BID #360 tabs 12/25/24 03/02/25 03/02/25 Rx famotidine 40 mg tablet 40 mg PO BID #180 tabs 01/01/25 03/02/25 03/02/25 Rx losartan 25 mg tablet 12.5 mg (1/2 x 25 mg) PO DAILY #45 01/01/25 03/02/25 03/02/25 Rx tabs flash glucose scanning reader #1 ea 01/16/25 03/02/25 Unknown Rx ([employer] Jenae 2 [place]) Diabetic shoe with Custom #1 ea 01/23/25 03/02/25 Unknown Rx accommodative insoles Allergies Allergy/AdvReac Type Severity Reaction Status Date / Time Penicillins Allergy ALGY-Hives Verified 02/20/25 13:15 Current Medications Generic Name Dose Route Start Last Admin Trade Name Duaneq PRN Reason Stop Dose Admin Acetaminophen 650 mg 03/02/25 16:42 03/06/25 09:13 Acetaminophen 325 Mg Tablet PO 650 mg Q6H PRN Administration Mild/Mod Pain Or Temp >/= 101 Albuterol Sulfate 2.5 mg 03/02/25 17:02 03/06/25 08:03 Albuterol 2.5 Mg/3 Ml Neb INHALATION 2.5 mg Q4H PRN Administration shortness of breath or wheezing Aspirin 81 mg 03/03/25 05:00 03/06/25 04:57 Aspirin 81 Mg Ec Tablet PO 81 mg DAILY RAFAELA Administration Atorvastatin Calcium 40 mg 03/03/25 05:00 03/06/25 04:57 Atorvastatin 40 Mg Tablet PO 40 mg DAILY RAFAELA Administration Clopidogrel Bisulfate 75 mg 03/03/25 05:00 03/06/25 04:57 Clopidogrel 75 Mg Tablet PO 75 mg DAILY RAFAELA Administration Docusate Sodium 100 mg 03/02/25 17:00 03/06/25 04:57 Docusate Sodium 100 Mg Capsule PO 100 mg BID RAFAELA Administration Enoxaparin Sodium 30 mg 03/02/25 16:45 03/05/25 16:24 Enoxaparin 30 Mg/0.3 Ml Syringe SUBCUT 30 mg Q24H RAFAELA Administration Famotidine 40 mg 03/03/25 18:00 03/06/25 04:57 Famotidine 20 Mg Tablet PO 40 mg BID RAFAELA Administration Gabapentin 300 mg 03/03/25 12:11 03/06/25 12:58 Gabapentin 300 Mg Capsule PO 300 mg Q8H [facility] Administration Linezolid 600 mg in 300 mls @ 300 mls/hr 03/04/25 17:45 03/06/25 06:29 Zyvox Premix IV Infused Q12H [facility] Infusion Protocol Insulin Glargine 65 unit 03/03/25 12:05 03/05/25 21:14 Insulin Glargine 100 Units/1 Ml SUBCUT 65 unit BEDTIME [facility] Administration Insulin Human Lispro 0 unit 03/02/25 18:00 03/06/25 12:45 Insulin Lispro 100 Unit/1 Ml SUBCUT 6 unit WM&BEDTIME [facility] Administration Protocol Losartan Potassium 12.5 mg 03/03/25 05:00 03/03/25 08:19 Losartan 25 Mg Tablet PO Not Given On Hold: 03/03/25 12:10 DAILY RAFAELA Meropenem 1,000 mg 03/05/25 18:45 03/06/25 08:48 Meropenem 1,000 Mg Sdv IVP 1,000 mg Q12H [facility] Administration Protocol Ondansetron HCl 4 mg 03/02/25 16:42 03/05/25 06:42 Ondansetron 2 Mg/Ml Sdv 2 Ml IVP 4 mg Q8H PRN Administration vomiting, or N/V if npo Oxycodone HCl 5 mg 03/04/25 01:20 03/06/25 12:59 Oxycodone 5 Mg Ir Tab/Cap PO 5 mg Q4H PRN Administration MODERATE PAIN Ropinirole HCl 8 mg 03/04/25 09:45 03/06/25 04:56 Ropinirole 2 Mg Tablet PO 8 mg BID RAFAELA Administration PFSH Acute PFSH: Medical History (Updated 03/07/25 @ 11:46 by Noble Day DPM) Prepatellar bursitis, right knee Osteoarthritis of right knee Acute pain of right knee 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 BG well controlled with scheduled insulin -consistent carb diet as tolerated Parastomal hernia PETER (obstructive sleep apnea) History of bladder cancer Hx of intestinal obstruction Surgical History History of appendectomy History of cholecystectomy History of shoulder surgery History of urostomy History of esophageal hernia repair Family History Mother Thyroid disease Hypertension Father Hypertension Social History Smoking and tobacco/nicotine status: former use of tobacco/nicotine Quit status (tobacco/nicotine): has quit using Year quit tobacco: 2009 Former quit date comment: previously 4 ppd Alcohol intake: former Substance/Drug Use: never Lives independently: Yes Household members: other Details: brother Marital status: / Number of children: 1 Number of grandchildren: 2 service: No Current occupational status: retired and 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 gender identity: Male Special jose carlos needs: No Agree to transfusion: Yes Vitals/I&O/Wt Last Vital Signs Temp 98.0 F 03/06/25 11:11 Pulse 81 03/06/25 11:11 Resp 25 H 03/06/25 12:59 BP 110/60 03/06/25 11:11 Pulse Ox 94 03/06/25 12:59 O2 Del Method Nasal Cannula 03/06/25 08:21 O2 Flow Rate 2 03/06/25 08:21 03/05/25 03/06/25 03/06/25 22:59 06:59 14:59 Intake Total 640 / 1080 300 / 1380 590 / 590 Output Total 675 / 1775 800 / 2575 Balance -35 / -695 -500 / -1195 590 / 590 Weight last 48 hrs Weight 222 lb 3.615 oz Weight 222 lb 3.615 oz Weight 228 lb 2.855 oz Weight 228 lb 2.855 oz Physical Exam Narrative: GENERAL: Patient is alert and oriented ?3 and in no acute distress. The following is a focused bilateral lower extremity exam. VASCULAR: Dorsalis pedis palpable bilaterally. Posterior tibial arteries palpable. Capillary refill time less than 3 seconds to the distal hallux bilaterally. Calf is supple and nontender proximally and distally. Mild edema to the right foot consistent with postoperative course. NEUROLOGICAL: Absent protective sensation bilateral foot. DERMATOLOGICAL: Grade 2 wound at rocker-bottom foot deformity of the right plantar midfoot measures 1.2 cm x 1.1 cm cm x 0.2 cm with granular base and epithelializing margin. Does not probe to bone, tunnel or undermine. Previously documented wound to the left great toe are epithelialized. MUSCULOSKELETAL: Rocker-bottom foot deformity to the right foot secondary to Charcot. Decreased dorsiflexion left ankle graded 4/5 able to dorsiflex against gravity and light resistance, does not have full strength with dorsiflexion at the left ankle. No crepitus with soft tissue palpation right plantar foot. Data 03/07/25 04:46 03/07/25 04:46 Micro: Microbiology 03/05/25 10:55 Blood Culture - Preliminary Blood Enterococcus faecalis 03/05/25 11:30 Urine Culture - Preliminary Urine,Clean Catch 03/05/25 10:57 Blood Culture - Preliminary Blood NEGATIVE TO DATE 03/02/25 13:54 Blood Culture - Preliminary Blood Staphylococcus aureus 03/02/25 13:54 Urine Culture - Final Urine,Clean Catch Providencia rettgeri Serratia fonticola A&P Assessment and plan 1. Type 2 diabetes mellitus with other specified complication, unspecified whether ad terminal makeup operator insulin use: 2. Charcot joint of right foot: 3. Non-pressure chronic ulcer of other part of right foot with fat layer exposed: Plan: Wound exposed to fat layer right foot demonstrates granular base and epithelialized margins, wound is measuring smaller and healthier compared to previous evaluation. There is no periwound erythema or warmth and no purulent drainage, wound does not tunnel or undermine. Primary dressing of Hydrofera Blue secured with Omnifix tape will be changed every other day. May weight-bear with Charcot restraint orthotic walker to the right lower extremity for offloading. Right foot is less likely that source of bacteremia given healthy clinical appearance with stable interval of healing compared to last evaluation 02/20/2025. Will follow-up in podiatry clinic for right foot wound within 1 week of discharge. PDMP PDMP Reviewed: Not Reviewed Coding Level of Care Code Acute Code for Chg Fwd Diagnoses Type 2 diabetes mellitus with other specified complication, unspecified whether ad terminal makeup operator insulin use E11.69 Diabetes mellitus intermediate insulin use: unspecified ad terminal makeup operator insulin use status Diabetes mellitus complication status: with other specified complication Charcot joint of right foot M14.671 Non-pressure chronic ulcer of other part of right foot with fat layer exposed L97.512
--- NOTE | 2025-03-06 16:42 | P.PN_ITS ---
Subjective 2 Subjective: He is doing a bit better today. So far without fever. Vitals/I&O/Wt Last Vital Signs Temp 97.8 F 03/06/25 15:26 Pulse 79 03/06/25 15:26 Resp 19 H 03/06/25 15:26 BP 92/67 03/06/25 15:26 Pulse Ox 97 03/06/25 15:26 O2 Del Method Nasal Cannula 03/06/25 08:21 O2 Flow Rate 2 03/06/25 08:21 03/06/25 03/06/25 03/06/25 06:59 14:59 22:59 Intake Total 300 / 1380 590 / 590 Output Total 800 / 2575 Balance -500 / -1195 590 / 590 Weight last 48 hrs Weight 100.8 kg Weight 100.8 kg Weight 103.5 kg Weight 103.5 kg Physical Exam 2 Narrative: Accompanied by his brother. Const: COMMON NORMALS: patient oriented x3 and alert GENERAL APPEARANCE: c ooperative ORIENTATION/CONSCIOUSNESS: Yes awake HENMT: COMMON NORMALS: oropharynx normal Neck/C-Spine: COMMON NORMALS: no JVD Resp: COMMON NORMALS: normal respiratory effort and clear to auscultation bilaterally AUSCULTATION: clear to auscultation bilaterally Cardio: COMMON NORMALS: no JVD, regular rhythm, S1 normal heart sound present, S2 normal heart sound present and No murmurs present (Cardio) RHYTHM: regular rhythm HEART SOUNDS: S1 normal heart sound present and S2 normal heart sound present GI: COMMON NORMALS: Normal to inspection, nondistended, normoactive bowel sounds present, Soft to palpation and non-tender PALPATION: Yes Soft to palpation OTHER: Right lower abdomen urostomy with surrounding herniation, soft, nontender, without any erythema, urostomy appears pink and perfused without any signs of ischemia. Amount of clear urine in the bag. Extremity: COMMON NORMALS: no joint enlargement and no pedal edema GENERAL: Yes edema (trace) OTHER: Right foot deformity with Charcot foot, unstageable ulcer with black eschar around 2-1/2 cm in diameter with surrounding bruising Neuro: COMMON NORMALS: patient oriented x3 and moves all extremities S ENSORIUM/ORIENTATION: Yes alert Skin: COMMON NORMALS: no rashes or lesions noted GENERAL SKIN EXAM: no rashes or lesions noted Data 03/06/25 08:04 03/06/25 08:04 Micro: Microbiology 03/02/25 13:54 Blood Culture - Final Blood Staphylococcus aureus 03/06/25 09:00 Gram Stain - Final Sputum - Expectorated Sputum 03/05/25 10:55 Blood Culture - Preliminary Blood Enterococcus faecalis 03/05/25 11:30 Urine Culture - Preliminary Urine,Clean Catch 03/05/25 10:57 Blood Culture - Preliminary Blood NEGATIVE TO DATE 03/02/25 13:54 Urine Culture - Final Urine,Clean Catch Providencia rettgeri Serratia fonticola A&P Assessment and plan 1. Community acquired bacterial pneumonia: 2. Hypoxemia: 3. Dyslipidemia: 4. PETER (obstructive sleep apnea): 5. History of bladder cancer: 6. Type 2 diabetes mellitus with other specified complication, unspecified whether meterman insulin use: 7. Primary hypertension: 8. Insulin dependent type 2 diabetes mellitus, uncontrolled: 9. Severe sepsis: 10. Acute metabolic encephalopathy: Plan: Severe Sepsis Acute metabolic Encephalopathy, resolved. CAP Hypoxemia Gradually improving. Continues 10 L. Saturation 97%. Discussed with tc operator, additional Lasix today for acute congestive heart failure. Continue treatment of possible pneumonia, with productive cough, recurrent fever. Continue treatment with antibiotic adjustment to meropenem and linezolid. Recurren/persistent fevers. Pyelonephritis with noted bacterial growth in urine. PreviDent today, Bridgett I did find on review of cultures today. Serratia is MDRO, including resistance to quinolones. Possible reason for lack of response. Switch from Levaquin to meropenem. Renally dosed. Monitor for scope seizure. Some respiratory symptoms with pneumonia superimposed on some degree of CHF not excluded. Hypoxia is improving, he is down to 2 L nasal cannula oxygen requirement. Continue treatment of possible pneumonia, as well as congestive heart failure. Concern for rising creatinine with worsening renal function, concern for possible prerenal etiology discussed with nephrology. However, concern for concomitant CHF, possible congestive nephropathy as per nephrology. Trial of additional Lasix today. Repeat chemistry. Monitor blood pressure. Monitor for risk of electrolyte abnormality, worsening JULY. Reviewed blood culture, remaining negative. Reviewed urine bacterial antigens, negative. Reviewed CBC, without leukocytosis. Discussed with nursing, medical case worker. If continues to improve and urine cultures come back possible discharge in the morning. AMS resolved. Likely acute metabolic encephalopathy. 03/02: CXR: Reviewed and results as follows: Cardiomegaly with central venous congestion and interstitial edema. Early congestive failure. Abnormal blood culture: Reviewed blood culture, Staph aureus updated to Enterococcus. May suspect urinary source. However, discussed with him unstageable wound on the bottom of his right foot with Charcot deformity. Discussed with career services manager, appreciate consultation. Reviewed TTE. Blood cultures repeated, pending. With lower back pain, due to recurrent fever obtain MRI. Reviewed MRI results. Complicated UTI With resistant organism, continue adjust antibiotic with meropenem. Monitor fever curve. Follow-up blood cultures. Reviewed CBC. CT abdomen pelvis, noted perinephric stranding. Discussed with him findings of pyelonephritis. With recurrent UTI discussed with him would benefit from setting up follow-up with urology for reassessment of ileal conduit, with noted herniation, question of whether it may be contributing to his recurrent UTIs, although otherwise has been asymptomatic from it. He verbalized that he plans to do so. With lower back pain. 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 No evidence of incarceration. Will assess CT abdomen/pelvis. - Hx of bladder cancer w/ urostomy placement - 03/02: UA: Urine bacteria 4+, Nitrite + - IV abx meropenem. Monitor for risk of C. difficile and seizure CHF Additional Lasix today. Reviewed CMP. Acute diastolic CHF, prior echo reviewed, EF 60%. Grade 2 diastolic dysfunction. No RWMA. Difficult to gauge volume status although has had congestive changes on chest x-ray. Persistent hypoxia. - 03/02: CXR: Reviewed and results as follows: Cardiomegaly with central venous congestion and interstitial edema. Early congestive failure. - Dly wt, strict I&Os, cardiac diet - Titrate O2 as indicated - Monitor CBC, CMP, Mag dly. Reviewed. Noted hypomagnesemia, supplement. Hypomagnesemia Recheck magnesium. CAD Dyslipidemia - Lipid panel ordered, pending - Continue home medications aspirin 81 mg PO dly, atorvastatin 40 mg PO dly, clopidogrel 75 mg PO Dly - Cardiac diet HTN -With soft blood pressure hold losartan 12.5mg PO dly DM2 CKD stage 2 Diabetic neuropathy - A1c ordered, pending. - Blood glucose monitoring, ACHS - Low regimen sliding scale - Hypoglycemic protocol - Cardiac Carb consistent diet - Continue home medication gabapentin 600 mg PO Q8H. With soft blood pressure will reduce to 300. PETER - Does not wear cpap at home - Continuous pulse ox GERD - On home famotidine 40mg PO dly Non-pressure chronic ulcer right foot - Chronic wounds on his leg and feet, healing pretty well at this point. - Follows with Dr. Day outpt. - Some mild redness noted at the base of great toenail but no overt cellulitis noted. Hx of bladder cancer w/ urostomy placement CODE STATUS: Full Code VTE prophylaxis: Lovenox 30mg subq PDMP PDMP Reviewed: Not Reviewed Attestations 2 Medical Necessity Statement*: Continue admission for assessment management of complicated UTI with urostomy, enterococcal bacteremia, neobladder, possible pneumonia, acute CHF, JULY, additional problems. and High MDM includes amount and/or complexity of data reviewed/ordered [ resulted lab(s)/test(s), ordered lab(s)/test(s) and other healthcare professional discussion] and described risk of complication, morbidity or mortality of management as documented Diagnoses Community acquired bacterial pneumonia J15.9 Hypoxemia R09.02 Dyslipidemia E78.5 PETER (obstructive sleep apnea) G47.33 History of bladder cancer Z85.51 Type 2 diabetes mellitus with other specified complication, unspecified whether meterman insulin use E11.69 Diabetes mellitus meterman insulin use: unspecified residential insulin use status Diabetes mellitus complication status: with other specified complication Primary hypertension I10 Hypertension type: primary hypertension Insulin dependent type 2 diabetes mellitus, uncontrolled Severe sepsis A41.9; R65.20 Acute metabolic encephalopathy G93.41
--- NOTE | 2025-03-06 18:34 | MR_ITS ---
WS: [id number] MRI LUMBAR SPINE NONCONTRAST HISTORY: pain, fever, poss bacteremia COMPARISON: 08/12/2023 TECHNIQUE: Sagittal and axial multisequence imaging is submitted. Cervical and thoracic disc space narrowing and osteophytosis. Mild encroachment upon the cervical canal at C4-5 and C5-6. Small disc protrusions at T7-8 and T8-9. Normal lumbar alignment. Disc spaces are narrowed and mildly desiccated. There is a small amount of fluid in the L3-4 disc space. There is a Schmorl's node in the posterior L3 vertebral body which was also present on 08/12/2023. There is a small amount of edema in the Schmorl's node site. Conus terminates normally at L1-2 disc level. L1-L2: Mild annular disc bulging and narrowing the subarticular recesses. Mild facet arthritis. Mild RIGHT foraminal stenosis. L2-L3: Mild annular disc bulging with osteophytic ridging. Ligamentum flavum and facet arthritis. Moderate central and bilateral subarticular recess stenosis. Moderate LEFT and mild RIGHT foraminal stenosis. Stenosis has progressed since the prior study. L3-L4: Diffuse disc bulging and osteophytic ridging. Central disc protrusion with fissure. Effacement of ventral CSF. Ligamentum flavum and facet arthritis. There is a new soft tissue focus posterior to the L3 vertebral body suspicious for a small disc extruded fragment. Moderate central and subarticular recess stenosis and bilateral foraminal stenosis. Overall progression since the prior study. L4-L5: Mild annular disc bulging with ligamentum flavum and facet arthritis. Fluid in the facet joints. Mild central, subarticular recess and foraminal stenosis. L5-S1: Mild annular disc bulging and facet arthritis. No significant stenosis. Paravertebral soft tissues are normal. MR/MR lumbar spine wo con* [id number] IMPRESSION: 1. Progression of degenerative disc disease and stenoses at several levels sin ce 08/12/2023. 2. There is a small amount of edema within the L3-4 disc. 3. Central disc protrusion with annular fissure at L3-4. Facet and ligamentum flavum disease. Moderate central, subarticular recess and bilateral foraminal s tenosis. Stenosis has progressed since the prior study. 4. There is a new soft tissue focus posterior to L3 highly suspicious for a ve ry small disc extrusion. Disc extrusion would be from the L3-4 disc which has m igrated superiorly. 5. Mild central, subarticular recess and foraminal stenosis at L4-5. 6. Moderate central, bilateral subarticular recess with moderate LEFT and mild RIGHT foraminal stenosis at L2-3 which has progressed. 7. Mild RIGHT foraminal stenosis at L1-2.
--- NOTE | 2025-03-06 19:31 | P.PN_ITS ---
Subjective 2 Subjective: Denies any complaints Medications: Reviewed: Yes Vitals/I&O/Wt Last Vital Signs Temp 100.4 F H 03/06/25 19:17 Pulse 89 03/06/25 19:17 Resp 20 H 03/06/25 19:17 BP 103/55 03/06/25 19:17 Pulse Ox 91 03/06/25 19:17 O2 Del Method Nasal Cannula 03/06/25 08:21 O2 Flow Rate 2 03/06/25 08:21 03/06/25 03/06/25 03/06/25 06:59 14:59 22:59 Intake Total 300 / 1380 590 / 590 480 / 1070 Output Total 800 / 2575 Balance -500 / -1195 590 / 590 480 / 1070 Weight last 48 hrs Weight 100.8 kg Weight 100.8 kg Weight 103.5 kg Weight 103.5 kg Physical Exam 2 Narrative: Vital signs noted. HEENT normocephalic atraumatic Neck is supple Lungs have crackles and rhonchi. Heart regular positive S1-S2. Abdomen is soft positive bowel sounds positive ostomy with hernia around it. Extremities do not have edema Poor distal pulses. Neuro awake alert oriented x 3 Data 03/06/25 08:04 03/06/25 08:04 Micro: Microbiology 03/02/25 13:54 Blood Culture - Final Blood Staphylococcus aureus 03/06/25 09:00 Gram Stain - Final Sputum - Expectorated Sputum 03/05/25 10:55 Blood Culture - Preliminary Blood Enterococcus faecalis 03/05/25 11:30 Urine Culture - Preliminary Urine,Clean Catch 03/05/25 10:57 Blood Culture - Preliminary Blood NEGATIVE TO DATE 03/02/25 13:54 Urine Culture - Final Urine,Clean Catch Providencia rettgeri Serratia fonticola A&P Assessment and plan 1. Acute kidney injury: 74-year-old man underlying diabetes with neuropathy, peripheral vascular disease, heart failure preserved EF, CAD, hyperlipidemia, obstructive sleep apnea. Patient is here with infection presumed pneumonia versus UTI . 1. Acute on chronic kidney disease stage III:Creatinine baseline is in the range of 1.2-1.4, creatinine currently is in the 1.7/1.8 range and stable. UA 2+ protein and trace blood, also consistent with UTI showing 4+ bacteria and positive nitrates. Etiology of current JULY likely ATN from hypotension. Creatinine is currently stable, continue to monitor. CT scan with normal-sized kidneys. Given 40 of IV Lasix today, avoid nephrotoxic agents and IV contrast studies. 2. Hyponatremia , sodium dropped to 129 today, check BMP in a.m. and Lasix IV today, urine osmolality pending 3. Sepsis in the setting of complicated UTI and pneumonia 4. Metabolic encephalopathy, improving Patient was seen and examined with aid of a nurse using A/V equipment. The patient consented to telehealth Plan: See above. PDMP PDMP Reviewed: Not Reviewed Attestations 2 Medical Necessity Statement*: per medicne team Coding Level of Care Code Acute Code for Chg Fwd Diagnoses Acute kidney injury N17.9
[2025-03-06] MEDS: insulin glargine 100 units/1 mL 65 UNIT SUBCUT (21:03)
[2025-03-07] VITALS (13 sets, daily range): BP systolic 109–133; BP diastolic 61–84; PULSE 71–88; RESP 16–26; TEMP 36.9–37.9; O2SAT 90–96; BMI 30.1
[2025-03-07] MEDS: oxyCODONE 5 mg IR Tab/Cap PO ×2 (05:06→15:59)
[2025-03-07 05:57] LABS: Hematocrit 37.2 % (37-53); Hemoglobin 12.20 g/dL (11.27-16.99); Mean Corpuscular HGB Conc 32.8 g/dL (30-55); Mean Corpuscular Hemoglobin 29.4 pg (27-33); Mean Corpuscular Volume 89.6 fl (82-101); Nucleated Red Blood Cells % 0 %; Platelet Count 142 10^3/cmm (157-399); Red Blood Count 4.15 10^6/uL (3.85-5.65); White Blood Count 9.09 10^3/uL (3.29-11.43)
[2025-03-07 06:19] LABS: Alanine Aminotransferase 29 U/L (0-41); Albumin Level 3.1 g/dL (3.5-5.2); Alkaline Phosphatase 140 U/L (40-130); Anion Gap 16.4 (5-19); Aspartate Amino Transferase 52 U/L (0-40); Blood Urea Nitrogen 40 mg/dL (8-23); Calcium 8.4 mg/dL (8.5-10.5); Carbon Dioxide 24 mmol/L (22-29); Chloride 95 mmol/L (98-107); Globulin 3.7 g/dL (1.3-4.6); Glucose 80 mg/dL (65-115); Osmolality Calculated 281 mOsm/kg (285-295); Potassium 4.4 mmol/L (3.5-5.1); Sodium 131 mmol/L (136-145); Total Protein 6.8 g/dL (6.6-8.7)
[2025-03-07 06:36] LABS: Magnesium 2.3 mg/dL (1.7-2.3)
[2025-03-07] MEDS: meropenem 1,000 mg SDV 1000 MG IVP ×2 (08:33→21:23)
[2025-03-07] MEDS: linezolid premix 600 MG/300 ML PREMIX 300 MG IV (08:33)
--- NOTE | 2025-03-07 10:21 | XR_ITS ---
WS: [id number] Portable AP supine chest, 03/07/2025 Clinical Data: PICC placement Comparison: Two-view chest, 03/05/2025 Findings: The right PICC line ends in the superior vena cava. No pneumothorax is seen. XR/XR chest 1V portable [id number] Impression: Satisfactory insertion of right PICC line.
--- NOTE | 2025-03-07 11:08 | PC.SOCIAL ---
IMM Updated Updated pt on IMM. No questions voiced. Provided pt a copy. Initialed, dated, & timed copy in chart.
--- NOTE | 2025-03-07 11:56 | PICC.NOTE ---
PICC Insertion PICC line procedure preformed under sterile technique. The right arm was prepped and draped in the usual sterile fashion. Ultrasound was used to identify and access the right basilic vein without any complications on first attempt. PICC line was verified with X-ray and confirmed to be in the right superior vena cava. Patient tolerated procedure well and verbalized understandings of all PICC line educations provided.
--- NOTE | 2025-03-07 12:04 | PM.DCS ---
Discharge Providers Date of Admission: 03/02/25 16:28 Date of Discharge: March 07, 2025 Attending Provider at Admission: Bernardo Tinoco MD Attending Provider at Discharge: Gerg Blanco Primary Care Provider: Ivett Still MD Diagnoses at Discharge Discharge Diagnosis 1. Type 2 diabetes mellitus with other specified complication, unspecified whether residential insulin use: 2. Charcot joint of right foot: 3. Non-pressure chronic ulcer of other part of right foot with fat layer exposed: Reason for Visit Reason for Visit: hyperglycemia Brief History: Cole Troncoso is a 74 year old male pmhx DM2, CKD stage 2, diabetic neuropathy, CAD, HTN, dyslipidemia, PETER- does not wear cpap at home, hx of bladder cancer w/ urostomy placement, GERD, RLS, and Non-pressure chronic ulcer right foot- sees Dr. Day in clinic. Patient presents to ED today for c/o AMS, fever, and SOB(requiring 4 L nasal cannula) x 1 week. Patient reports associated signs/symptoms of increased weakness, productive cough (thick green), and N/V/D. Patient denies headache, fever, chest pain, abd pain, recent medication changes. Patient to be admitted to hospitalist services for further medical management and care of CAP. While in ED a CBC, CMP, ABG, BNP, troponin series, procalcitonin reviewed and results as follows: WBC 8.25, Neut 81.6%, RBC 5.34, Hgb 16, Hct 46.4%, Plt 140, MPV 10.7. Na 134, K 4.2, Director Of Strategic Initiatives 1.2, BUN 29, [place] Phos 136, Osmo 300, Lactic acid 2.9, Glucose 390. LFTs WNL. ABG pH 7.43, pO2 56.0, HCO3 27.5, Glucose 371. Baseline Trop 48, 2hr Trop 42.25, Delta Trop -5.75, BNP 570, CRP 61.9, Procalcitonin 0.25. While in the ED patient received following medications: Meropenem 500 mg IVP, linezolid 600 mg IV, 2L sepsis NS IV bolus, acetaminophen 1000 mg IV. Hospital Course Hospital Course Received treatment for acute congestive heart failure with IV diuresis, although Lasix had to be held transiently due to worsening renal function. Continued oxygen supplementation. With possible pneumonia/bronchitis continued on antibiotic coverage. Hypoxia gradually improving/resolving. JULY on CKD showing improvement, please reassess. He also continued treatment for possible sepsis, with resolution, with source being found to be secondary to complicated UTI with enterococcal bacteremia, with MDRO Serratia in urine not responding to initial antibiotic choice with recurrent fevers, without obstructive changes on CT, antibiotic adjusted to meropenem with fever resolving. 1/ bottles MSSA from blood culture 03/02 possible contaminant, not present on subsequent culture. Additional blood culture repeated. Will complete additional 11 days of IV antibiotic with ertapenem and oral linezolid. Will need follow-up blood counts. Echocardiogram unremarkable with grade 1 diastolic dysfunction. Has been having worsening of his chronic back pain, imaged with MRI with progression of degenerative changes and stenosis of several levels since July. Finding of central disc protrusion with annular fissure at L3-4, facet and ligamentum flavum disease. Moderate central, subarticular recess and bilateral foraminal stenosis. Stenosis progressed since prior study. Small amount of edema within L3-4 disc. New soft tissue focus posterior to L3 highly suspicious for a very small disc extrusion from L3-4 disc which has migrated superiorly. Mild central, subarticular recess and foraminal stenosis L4-5. Moderate central bilateral subarticular recess with moderate left and mild right foraminal stenosis at L2-3 which has progressed. Mild right foraminal stenosis L1-2. Right foot ulcer assessed by podiatry and has been healing well. Continue dressing changes, orthosis and follow-up with podiatry within a week. Will have him follow-up with infectious disease and discussed with him needs to reestablish follow-up with his urologist given recurrent UTI, complicated UTI, and reassessment of urostomy herniation. Physical Exam Const: COMMON NORMALS: patient oriented x3 and alert GENERAL APPEARANCE: cooperative ORIENTATION/CONSCIOUSNESS: Yes awake HENMT: COMMON NORMALS: oropharynx normal Neck/C-Spine: COMMON NORMALS: no JVD Resp: COMMON NORMALS: normal respiratory effort and clear to auscultation bilaterally AUSCULTATION: clear to auscultation bilaterally Cardio: COMMON NORMALS: no JVD, regular rhythm, S1 normal heart sound present, S2 normal heart sound present and No murmurs present (Cardio) RHYTHM: regular rhythm HEART SOUNDS: S1 normal heart sound present and S2 normal heart sound present GI: COMMON NORMALS: Normal to inspection, nondistended, normoactive bowel sounds present, Soft to palpation and non-tender PALPATION: Yes Soft to palpation OTHER: Right lower abdomen urostomy with surrounding herniation, soft, nontender, without any erythema, urostomy appears pink and perfused without any signs of ischemia. Amount of clear urine in the bag. Extremity: COMMON NORMALS: no joint enlargement and no pedal edema OTHER: Right foot deformity with Charcot foot, unstageable ulcer with black eschar around 2-1/2 cm in diameter with surrounding bruising Neuro: COMMON NORMALS: patient oriented x3 and moves all extremities SENSORIUM/ORIENTATION: Yes alert Skin: COMMON NORMALS: no rashes or lesions noted GENERAL SKIN EXAM: no rashes or lesions noted Discharge Data Studies Completed and Pending Completed Studies During Hospitalization Category Date Time Status CT abdomen pelvis wo con [id number] Routine Cat Scan 03/03/25 11:57 Completed CXRIE [XR chest 2V insp/exp [id number]] Routine Exams 03/05/25 10:08 Completed XR chest 1V portable [id number] Routine Exams 03/07/25 10:21 Completed XR chest 1V portable [id number] Stat Exams 03/02/25 13:23 Completed MR lumbar spine wo con* [id number] Routine MRI 03/06/25 18:34 Completed CV. echo complete* [id number] Routine Ultrasound 03/05/25 10:05 Completed Pending at discharge Category Date Time Status Basic Metabolic Panel AM LABS Lab 03/08/25 04:00 Ordered Blood Culture Stat Lab 03/02/25 13:54 Results Blood Culture Stat Lab 03/05/25 10:57 Results Complete Blood Count w/Auto AM LABS Lab 03/08/25 04:00 Ordered Complete Blood Count w/Auto AM LABS Lab 03/08/25 04:00 Ordered Comprehensive Metabolic Panel AM LABS Lab 03/08/25 04:00 Ordered Phosphorus AM LABS Lab 03/08/25 04:00 Ordered Sputum Culture and Gram Stain Routine Lab 03/06/25 09:00 Results Radiology Impressions Abdomen/Pelvis CT 03/03/25 11:57 IMPRESSION: 1. Kidneys demonstrate nonspecific perinephric stranding bilaterally. UTI is not excluded. There is no evidence of obstructing urinary tract stones. Multiple calcifications are seen in both kidneys however these are felt to represent vascular calcifications not renal stones. 2. 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 No intra-abdominal fluid collections are appreciated. Small amount of ascites seen on previous study has resolved. 3. Cardiomegaly with small bilateral pleural effusions suggests possibility of mild heart failure. Lumbar Spine MRI 03/06/25 18:34 IMPRESSION: 1. Progression of degenerative disc disease and stenoses at several levels since 08/12/2023. 2. There is a small amount of edema within the L3-4 disc. 3. Central disc protrusion with annular fissure at L3-4. Facet and ligamentum flavum disease. Moderate central, subarticular recess and bilateral foraminal stenosis. Stenosis has progressed since the prior study. 4. There is a new soft tissue focus posterior to L3 highly suspicious for a very small disc extrusion. Disc extrusion would be from the L3-4 disc which has migrated superiorly. 5. Mild central, subarticular recess and foraminal stenosis at L4-5. 6. Moderate central, bilateral subarticular recess with moderate LEFT and mild RIGHT foraminal stenosis at L2-3 which has progressed. 7. Mild RIGHT foraminal stenosis at L1-2. Chest X-Ray 03/07/25 10:21 Impression: Satisfactory insertion of right PICC line. Laboratory Results WBC 9.09 10^3/uL (3.29-11.43) 03/07/25 04:46 RBC 4.15 10^6/uL (3.85-5.65) 03/07/25 04:46 Hgb 12.20 g/dL (11.27-16.99) 03/07/25 04:46 Hct 37.2 % (37-53) 03/07/25 04:46 MCV 89.6 fl (82-101) 03/07/25 04:46 MCH 29.4 pg (27-33) 03/07/25 04:46 MCHC 32.8 g/dL (30-55) 03/07/25 04:46 RDW 13.1 % (12.1-15.1) 03/07/25 04:46 Plt Count 142 10^3/cmm (157-399) L 03/07/25 04:46 MPV 10.9 fL (7.4-10.4) H 03/07/25 04:46 Neut % (Auto) 65.5 % 03/07/25 04:46 Lymph % (Auto) 20.5 % 03/07/25 04:46 [place] % (Auto) 12.4 % 03/07/25 04:46 Eos % (Auto) 0.9 % 03/07/25 04:46 Baso % (Auto) 0.4 % 03/07/25 04:46 Neut # (Auto) 5.95 10^3/uL (1.8-7.7) 03/07/25 04:46 Lymph # (Auto) 1.9 10^3/uL (0.8-4.8) 03/07/25 04:46 [place] # (Auto) 1.1 10^3/uL (0.2-0.9) H 03/07/25 04:46 Eos # (Auto) 0.1 10^3/uL (0.0-0.8) 03/07/25 04:46 Baso # (Auto) 0.0 10^3/uL (0.0-0.1) 03/07/25 04:46 Nucleated RBC % (auto) 0 % 03/07/25 04:46 Nucleated RBCs # 0.0 /100WBC 03/07/25 04:46 Specimen Type Arterial 03/02/25 13:50 Sample Site Radial, right 03/02/25 13:50 ABG pH 7.48 (7.35-7.45) H 03/02/25 13:50 ABG pCO2 37.3 mmHg (35-45) 03/02/25 13:50 ABG pO2 56.0 mmHg (80.0-100.0) L 03/02/25 13:50 ABG PO2/FiO2 Ratio 140 03/02/25 13:50 ABG HCO3 27.5 mmol/L (22-26) H 03/02/25 13:50 ABG O2 Saturation 91.5 03/02/25 13:50 ABG Base Excess 3.8 mmol/L (-2.0-2.0) H 03/02/25 13:50 Daron Test Pos 03/02/25 13:50 A-a O2 Gradient 23.8 mmHg (5-10) H 03/02/25 13:50 Hematocrit 45.6 % (42-52) 03/02/25 13:50 Hgb O2 Saturation 89.4 % (95-100) L 03/02/25 13:50 Carboxyhemoglobin 1.3 %THgb (0.4-20.1) 03/02/25 13:50 Methemoglobin 1.0 % (0.4-1.5) 03/02/25 13:50 Total Hemoglobin 14.9 g/dL (14-18) 03/02/25 13:50 Sodium 134.0 mmol/L (131-143) 03/02/25 13:50 Potassium 3.8 mmol/L (3.5-5.0) 03/02/25 13:50 Glucose 371.0 mg/dL (70-115) H 03/02/25 13:50 Ionized Calcium 1.1 mmol/L (1.1-1.4) 03/02/25 13:50 O2 Delivery Device Nc 03/02/25 13:50 O2 Liters/Min 5.0 % 03/02/25 13:50 FiO2 40.0 % 03/02/25 13:50 Machine Learning Intern ID glc 03/02/25 13:50 Sodium 131 mmol/L (136-145) L 03/07/25 04:46 Potassium 4.4 mmol/L (3.5-5.1) 03/07/25 04:46 Chloride 95 mmol/L (98-107) L 03/07/25 04:46 Carbon Dioxide 24 mmol/L (22-29) 03/07/25 04:46 Anion Gap 16.4 (5-19) 03/07/25 04:46 BUN 40 mg/dL (8-23) H 03/07/25 04:46 Creatinine 1.6 mg/dL (0.7-1.2) H 03/07/25 04:46 GFR Calculation Not Reportable 03/07/25 04:46 Glucose 80 mg/dL (65-115) 03/07/25 04:46 POC Glucose 292 mg/dL (70-110) H 03/07/25 10:01 Estimat Average Glucose 361 03/02/25 13:05 Hemoglobin A1c 14.2 % (4.0-6.0) H 03/02/25 13:05 Calculated Osmolality 281 mOsm/kg (285-295) L 03/07/25 04:46 Lactic Acid 2.9 mmol/L (0.5-2.2) H 03/02/25 13:05 Lactic Acid (Sepsis) 2.6 mmol/L (0.5-2.2) H 03/02/25 16:33 Uric Acid 6.7 mg/dL (3.4-7.0) 03/05/25 10:55 Calcium 8.4 mg/dL (8.5-10.5) L 03/07/25 04:46 Phosphorus 3.0 mg/dL (2.5-4.5) 03/07/25 04:46 Magnesium 2.3 mg/dL (1.7-2.3) 03/07/25 04:46 Total Bilirubin 0.6 mg/dL (0.15-1.2) 03/07/25 04:46 AST 52 U/L (0-40) H 03/07/25 04:46 ALT 29 U/L (0-41) 03/07/25 04:46 Alkaline Phosphatase 140 U/L (40-130) H 03/07/25 04:46 Creatine Kinase 713 U/L (39-308) H* 03/05/25 10:55 Troponin T Baseline 48 ng/L (0-15) H 03/02/25 13:05 Troponin T 60 Minute 42.25 ng/L (0-15) H 03/02/25 13:52 Delta Troponin T -5.75 ABS# (0-10) L 03/02/25 13:52 Troponin T Hi Sens 6Hr 55.23 ng/L (0-15) H 03/02/25 19:09 Troponin T Hi Sens 6Hr Delta 7.23 ng/L (0-12) 03/02/25 19:09 C-Reactive Protein 61.9 mg/L (0.0-4.9) H 03/02/25 13:05 NT-Pro-B Natriuret Pep 570 pg/mL (0-125) H 03/02/25 13:05 Total Protein 6.8 g/dL (6.6-8.7) 03/07/25 04:46 Albumin 3.1 g/dL (3.5-5.2) L 03/07/25 04:46 Globulin 3.7 g/dL (1.3-4.6) 03/07/25 04:46 Triglycerides 140 mg/dL (0-150) 03/03/25 02:23 Cholesterol 121 mg/dL (0-200) 03/03/25 02:23 LDL Cholesterol, Calc 60 mg/dL (50-129) 03/03/25 02:23 HDL Cholesterol 33 mg/dL (60-100) L 03/03/25 02:23 LDL/HDL Ratio 1.82 RATIO (0.00-3.22) 03/03/25 02:23 Cholesterol/HDL Ratio 3.67 mg/dL (1.0-5.00) 03/03/25 02:23 25-OH Vitamin D Total 14 ng/mL (30-100) L 03/06/25 08:04 Procalcitonin 0.25 ng/mL (0-0.5) 03/02/25 13:05 TSH 0.73 uIU/mL (0.27-4.20) 03/05/25 10:55 Random Cortisol 18.43 ug/dL (2.47-19.5) 03/05/25 10:55 Urine Color Yellow (Yellow) 03/05/25 11:30 Urine Appearance Clear (CLEAR) 03/05/25 11:30 Urine pH 6.5 (5-7) 03/05/25 11:30 Ur Specific [place] 1.013 (1.005-1.030) 03/05/25 11:30 Urine Protein 2+ (Negative) A 03/05/25 11:30 Urine Glucose (UA) Negative (Normal) 03/05/25 11:30 Urine Ketones Negative (Negative) 03/05/25 11:30 Urine Blood 2+ (Negative) A 03/05/25 11:30 Urine Nitrate Negative (Negative) 03/05/25 11:30 Urine Bilirubin Negative (Negative) 03/05/25 11:30 Urine Urobilinogen 0.2 mg/dL (Negative) 03/05/25 11:30 Ur Leukocyte Esterase 1+ (Negative) A 03/05/25 11:30 Urine RBC 0-2 /hpf (0-2) 03/05/25 11:30 Urine WBC 11-20 /hpf (0-5) H 03/05/25 11:30 Ur Squamous Epith Cells 0-5 /hpf (0-5) 03/05/25 11:30 Amorphous Sediment Not Reportable 03/05/25 11:30 Urine Bacteria None seen /hpf (NONE) 03/05/25 11:30 Hyaline Casts 2.46 /lpf 03/05/25 11:30 Ur Random Sodium 46 mmol/L 03/05/25 11:30 Ur Random Potassium 28 mmol/L 03/05/25 11:30 Ur Random Chloride 16 mmol/L 03/05/25 11:30 Nasal MRSA (PCR) Not detected (Negative) 03/02/25 20:15 BLAS Screen Negative (NEGATIVE) 03/05/25 10:55 Complement C3 155 mg/dL (90-180) 03/05/25 10:55 Complement C4 26 mg/dL (10-40) 03/05/25 10:55 Adenovirus (PCR) Not detected (NOT DETECT) 03/02/25 20:15 C. pneumoniae DNA (PCR) Not detected (NOT DETECT) 03/02/25 20:15 Coronavirus 229E (PCR) Not detected (NOT DETECT) 03/02/25 20:15 Hepatitis C Antibody Non-reactive (Nonreactive) 03/05/25 10:55 Human Metapneumovir PCR Not detected (NOT DETECT) 03/02/25 20:15 Influenza A (H1) PCR Not detected (NOT DETECT) 03/02/25 20:15 Influenza A (PCR) Negative (Negative) 03/02/25 13:36 Influ A (H1/09) PCR Not detected (NOT DETECT) 03/02/25 20:15 Influenza A (H3) PCR Not detected (NOT DETECT) 03/02/25 20:15 Influenza Type A (PCR) Not detected (NOT DETECT) 03/02/25 20:15 Influenza Type B (PCR) Not detected (NOT DETECT) 03/02/25 20:15 M. pneumoniae (PCR) Not detected (NOT DETECT) 03/02/25 20:15 Parainfluenza 1 (PCR) Not detected (NOT DETECT) 03/02/25 20:15 Parainfluenza 2 (PCR) Not detected (NOT DETECT) 03/02/25 20:15 Parainfluenza 3 (PCR) Not detected (NOT DETECT) 03/02/25 20:15 Parainfluenza 4 (PCR) Not detected (NOT DETECT) 03/02/25 20:15 RSV (PCR) Negative (Negative) 03/02/25 13:36 RSV Type A (PCR) Not detected (NOT DETECT) 03/02/25 20:15 RSV Type B (PCR) Not detected (NOT DETECT) 03/02/25 20:15 Entero/Rhino (PCR) Not detected (NOT DETECT) 03/02/25 20:15 SARS-CoV-2 (PCR) Not detected (NOT DETECT) 03/02/25 20:15 Anti-Streptolysin O Ab 98 IU/mL (<200) 03/05/25 10:55 Vitals Last Vital Signs Temp 98.5 F 03/07/25 07:33 Pulse 71 03/07/25 07:44 Resp 16 03/07/25 07:44 BP 112/65 03/07/25 07:33 Pulse Ox 95 03/07/25 10:15 O2 Del Method Room Air 03/07/25 10:15 O2 Flow Rate 5 03/07/25 07:44 Discharge Plan Discharge Patient Disposition: Home Condition: Stable Prescriptions: New ertapenem 1 gram recon soln 1 g IV DAILY 11 Days linezolid 600 mg tablet 600 mg PO BID 11 Days Qty: 22 0RF furosemide [Lasix] 20 mg tablet 20 mg PO DAILY Qty: 90 0RF lidocaine 5 % Adhesive Patch,Medicated 1 patch topical [id number] Qty: 20 0RF Continued (DME) carbon fiber afo See Rx Instructions .Route .MEDSUPPLY Qty: 1 0RF Rx Instructions: As directed ropinirole 4 mg tablet 8 mg PO BID Qty: 360 1RF aspirin 81 mg tablet,delayed release (DR/EC) 81 mg PO DAILY Qty: 90 1RF atorvastatin [Lipitor] 40 mg tablet 40 mg PO DAILY Qty: 90 1RF clopidogrel 75 mg tablet 75 mg PO DAILY Qty: 90 1RF albuterol sulfate 90 mcg/actuation HFA aerosol inhaler 2 inh INHALATION Q4H PRN (Reason: shortness of breath or wheezing) Qty: 18 11RF fluticasone propionate [Flonase Allergy Relief] 50 mcg/actuation spray,suspension 1 spray intranasal DAILY PRN (Reason: nasal congestion) Qty: 16 11RF Rx Instructions: administer into each nostril (DME) FreeStyle Jenae 2 Sensor Kit See Rx Instructions .MEDSUPPLY Qty: 2 11RF Rx Instructions: Change every 14 days; Use as directed to check blood sugar gabapentin 600 mg tablet 600 mg PO Q8H Qty: 270 1RF insulin lispro [Humalog KwikPen Insulin] 100 unit/mL insulin pen 15 unit SUBCUT TID Qty: 15 2RF insulin glargine [Lantus Solostar U-100 Insulin] 100 unit/mL (3 mL) insulin pen 65 unit SUBCUT BID Qty: 15 2RF (DME) Diabetic shoe with Custom accommodative insoles See Rx Instructions .Route .MEDSUPPLY Qty: 1 0RF Rx Instructions: As directed by [facility] (DME) JAKI lockwood See Rx Instructions .Route .MEDSUPPLY Qty: 1 0RF Rx Instructions: As directed by [facility] losartan 25 mg tablet 12.5 mg PO DAILY Qty: 45 1RF famotidine 40 mg tablet 40 mg PO BID Qty: 180 1RF (DME) FreeStyle Jenae 2 [place] Misc See Rx Instructions .MEDSUPPLY Qty: 1 0RF Rx Instructions: Use as directed to check blood sugar Other Ambulatory Orders: Miscellaneous Procedure (Order) Location: None Selected Ordered By: Greg Blanco Referrals: [facility] Infusion Center [Outside] - 03/08/25 10:00 am Referral Note: You will follow up at the [facility], in Oncology for your infusions. Starting tomorrow, 03/08 at 1000. On the weekends, you will need to follow up at 1000 in Out patient surgery for you infusions. It is in the hopsital. You will need to come in to the ER entrance on the weekends. Noble Day DPM [Physician, Podiatry] - 1 week Magda Feng MD [Hospitalist, Hospitalist] Referral Note: Complicated UTI with enterococcal bacteremia Ivett Still MD [Primary Care Provider, Family Practice] - 03/09/25 10:20 am Discharge Activity: As per PT/OT instructions and Oxygen as instructed Patient Instructions: Furosemide (By mouth), Lidocaine (On the skin), Linezolid (By mouth), Ertapenem (By injection), Sepsis (DC), Chronic Hypertension (DC), Community Acquired Pneumonia (DC), Altered Mental Status (ED), Hypoxemia (DC), Patient Portal & [place] Instructions Activity Restrictions/Additional Instructions: After several days if there is no recurrence of edema and breathing is improving, oxygenation improving, change Lasix to as needed dose in case of edema or worsening dyspnea with exertion or while lying down. Complete antibiotic course with ertapenem infusions and linezolid. Have your primary provider recheck blood counts at the appointment to confirm blood counts are remaining steady while on linezolid. Follow-up with your primary provider for reassessment after bronchitis, acute congestive heart failure, acute kidney injury. Follow-up with your primary provider and make an appointment with urology for assessment after complicated urinary tract infection with enterococcal bacteremia. Multidrug-resistant Serratia and urine sensitive only to carbapenem and aminoglycoside and Providencia. Discuss with urology regarding recurrent urinary tract infections. Follow-up with your primary provider regarding worsening degenerative changes in your back. Use acetaminophen, heat, cold as needed, lidocaine patch. Follow-up with podiatry with regards to right foot ulcer. Primary dressing of Hydrofera Blue secured with Omnifix tape will be changed every other day. May weight-bear with Charcot restraint orthotic walker to the right lower extremity for offloading. Discharge Attestations Time Spent in Discharge Care*: greater than 30 min Status at Discharge: Cognitive status at discharge: cognitively intact, Behavioral status at discharge: cooperative, Quality Metrics Clinical Quality Measures [ No reported AMI, CVA or VTE this stay] Coding Level of Care Code 01480 Total time (in minutes) for Discharge: 65 Diagnoses Type 2 diabetes mellitus with other specified complication, unspecified whether residential insulin use E11.69 Diabetes mellitus complication status: with other specified complication Diabetes mellitus residential insulin use: unspecified residential insulin use status Charcot joint of right foot M14.671 Non-pressure chronic ulcer of other part of right foot with fat layer exposed L97.512
--- NOTE | 2025-03-07 13:58 | PM.PN ---
Subjective Subjective: no new c/o Medications: Reviewed: Yes Vitals/I&O/Wt Last Vital Signs Temp 98.5 F 03/07/25 07:33 Pulse 80 03/07/25 12:00 Resp 24 H 03/07/25 12:00 BP 132/67 03/07/25 12:00 Pulse Ox 93 03/07/25 12:00 O2 Del Method Room Air 03/07/25 10:15 O2 Flow Rate 5 03/07/25 07:44 03/06/25 03/07/25 03/07/25 22:59 06:59 14:59 Intake Total 780 / 1370 1020 / 1020 Output Total 750 / 750 1075 / 1075 Balance 30 / 620 -55 / -55 Weight last 48 hrs Weight 100.834 kg Weight 100.8 kg Weight 100.8 kg Physical Exam Narrative: Vital signs noted. HEENT normocephalic atraumatic Neck is supple Lungs have crackles and rhonchi. Heart regular positive S1-S2. Abdomen is soft positive bowel sounds positive ostomy with hernia around it. Extremities do not have edema Poor distal pulses. Neuro awake alert oriented x 3 Data 03/07/25 04:46 03/07/25 04:46 Micro: Microbiology 03/05/25 11:30 Urine Culture - Final Urine,Clean Catch 03/02/25 13:54 Blood Culture - Final Blood Staphylococcus aureus 03/06/25 09:00 Gram Stain - Final Sputum - Expectorated Sputum 03/05/25 10:55 Blood Culture - Preliminary Blood Enterococcus faecalis 03/05/25 10:57 Blood Culture - Preliminary Blood NEGATIVE TO DATE A&P Assessment and plan 1. Acute kidney injury: 74-year-old man underlying diabetes with neuropathy, peripheral vascular disease, heart failure preserved EF, CAD, hyperlipidemia, obstructive sleep apnea. Patient is here with infection presumed pneumonia versus UTI . 1. Acute on chronic kidney disease stage III:Creatinine baseline is in the range of 1.2-1.4, creatinine currently is in the 1.7/1.8 range and stable. UA 2+ protein and trace blood, also consistent with UTI showing 4+ bacteria and positive nitrates. Etiology of current JULY likely ATN from hypotension. Creatinine is currently stable, continue to monitor. CT scan with normal-sized kidneys. s/p 40 of IV Lasix , start PO lasix 40 mg daily avoid nephrotoxic agents and IV contrast studies. 2. Hyponatremia , sodium dropped to 129 today, check BMP in a.m. and Lasix IV today, urine osmolality pending 3. Sepsis in the setting of complicated UTI and pneumonia 4. Metabolic encephalopathy, improving Patient was seen and examined with aid of a nurse using A/V equipment. The patient consented to telehealth Plan: See above. PDMP PDMP Reviewed: Not Reviewed Attestations Medical Necessity Statement*: per debbie Coding Level of Care Code Acute Code for [facility] Fwd Diagnoses Acute kidney injury N17.9
--- NOTE | 2025-03-07 14:32 | CTR_ITS ---
PROCEDURE INFORMATION: Exam: CT Chest Without Contrast; Diagnostic Exam date and time: 03/07/2025 2:52 PM Age: 74 years old Clinical indication: Condition or disease; Other: Septic emboli; Additional info: Assess for any appearance of septic emboli TECHNIQUE: Imaging protocol: Diagnostic computed tomography of the chest without contrast. Radiation optimization: All CT scans at this facility use at least one of these dose optimization techniques: automated exposure control; mA and/or kV adjustment per patient size (includes targeted exams where dose is matched to clinical indication); or iterative reconstruction. COMPARISON: [place] [id number] 04/13/2024 2:54 PM RADIATION DOSE METRICS: Total DLP (mGy-cm): 638.2 FINDINGS: Lungs: Mild bibasilar dependent atelectasis. Pleural spaces: Small bilateral pleural effusions. Heart: Unremarkable. No cardiomegaly. No pericardial effusion. Coronary arteries: Coronary artery calcifications. Lymph nodes: Visible central lymph nodes are not pathologically enlarged. Vasculature: Unremarkable. No aortic aneurysm. Gallbladder and biliary ducts: Cholecystectomy. Kidneys: Lobular kidneys. Bones/joints: Unremarkable. No acute fracture. Soft tissues: Unremarkable. CT/CT chest wo con [id number] IMPRESSION: 1. No acute findings. 2. Mild bibasilar atelectasis.
--- NOTE | 2025-03-07 14:55 | PHA.VACGOAL ---
Vancomycin Goal - Goal Vancomycin Goal:: 15-20 mg/L Vancomycin Indication:: Other - Therapy Day of therpy:: Day []of [] . Actual body weight (kg): 100.834 kg - Data Labs: WBC 9.09 10^3/uL (3.29-11.43) 03/07/25 04:46 RBC 4.15 10^6/uL (3.85-5.65) 03/07/25 04:46 Hgb 12.20 g/dL (11.27-16.99) 03/07/25 04:46 Hct 37.2 % (37-53) 03/07/25 04:46 MCV 89.6 fl (82-101) 03/07/25 04:46 MCH 29.4 pg (27-33) 03/07/25 04:46 MCHC 32.8 g/dL (30-55) 03/07/25 04:46 RDW 13.1 % (12.1-15.1) 03/07/25 04:46 Sodium 131 mmol/L (136-145) L 03/07/25 04:46 Potassium 4.4 mmol/L (3.5-5.1) 03/07/25 04:46 Chloride 95 mmol/L (98-107) L 03/07/25 04:46 Carbon Dioxide 24 mmol/L (22-29) 03/07/25 04:46 Anion Gap 16.4 (5-19) 03/07/25 04:46 BUN 40 mg/dL (8-23) H 03/07/25 04:46 Creatinine 1.6 mg/dL (0.7-1.2) H 03/07/25 04:46 GFR Calculation Not Reportable 03/07/25 04:46 Treatment plan:: new consult Regimen:: ENDOCARDITIS 1500 MG NOW 750 MG Q12H
--- NOTE | 2025-03-07 16:19 | P.CONIM_ITS ---
<Statement entered by Bassam Tony M.D - 03/15/25 10:50> Patient was cared for in conjunction with an advanced practice practitioner.? I reviewed the chart and all pertinent data including imaging, telemetry, and laboratory results.? I discussed the patient in detail with the advanced practice practitioner.? Please see? their documentation for consult note, testing results and agreed upon plan of care for the patient. Providers/Reason For Consult 2 Consulting Physician/Specialty*: Dr. Tony Reason for Consult*: bacteremia, infective endocarditis rule out Requesting Physician: Dr. Blanco Attending Physician: Greg Blanco Primary Care Provider: Ivett Still MD History of Present Illness History of Present Illness Cole Troncoso is a 74 year old male, hx of CKD, diabetes, bladder cancer with urostomy, chronic foot wound, came inthe the ER by ambulance with confusion and fever. He states he has had a fever for at least 3 weeks and did not let his know. She is with him at bedside. He was admitted to the hospital and treated with antibiotics for pneumonia. Was found to have UTI. Blood cultures were obtained. 03/25 bottles was MSSA positive. We were consulted to perform GWEN for endocarditis rule out. Echo showed: CONCLUSIONS Normal left ventricular size and systolic function, EF 61%. No regional wall motion abnormalities. Grade I/IV diastolic dysfunction (abnormal relaxation filling pattern), normal to mildly elevated filling pressures. Normal cardiac chamber sizes. Thickened mitral valve. Thickened aortic valve. There is no pericardial effusion. There are no intracardiac masses. Compared to the study from 04/13/2024, there may not be a significant change. CT chest being done today. At this time, patient feels much better and is coherent. Hemodynamically stable. Review of Systems 2 Narrative: Consitutional: Reports chronic fever for 3 weeks Eyes: Denies changes in vision Card: Denies chest pain, palpitations, irregular heart rhythm, edema, syncope, shortness of breath, orthopnea, leg pain with exertion Resp: Denies shortness of breath, denies hemoptysis, denies cough GI: denies abdominal pain, denies nausea or voimting, denies blood in stool Musc: Denies extremity pain, denies limited range of motion or recent injury Skin: Denies rash, lesions, or wounds, denies changes to skin color Neuro: Denies nubmness in extremities, h/a, s/s of stroke Alfredo: Denies easy bruiding/bleeding Medications/Allergies Home Medications ?Medication ?Instructions ?Recorded ?Confirmed ?Last Taken ?Type [place] boot #1 ea 08/21/24 03/02/25 Unkn own Rx carbon fiber afo #1 ea 12/20/24 03/02/25 Unkn own Rx albuterol sulfate 90 mcg/actuation 2 inh inhalation Q4 H PRN shortness 12/25/24 03/02/25 Unknown Rx aerosol inhaler of breath or wheezing #18 gr ams aspirin 81 mg tablet,delayed 81 mg PO DAILY #90 tabs 1 03/02/25 03/02/25 Rx release atorvastatin 40 mg tablet (Lipitor) 40 mg PO DAILY #90 tabs 12/25/24 03/02/25 03/02/25 Rx clopidogrel 75 mg tablet 75 mg PO DAILY #90 tabs 09/1303/02/25 03/02/25 Rx flash glucose sensor (FreeStyle #2 ea 12/25/24 5 Unknown Rx Jenae 2 Sensor kit) fluticasone propionate 50 1 spray intranasal DAILY PRN nasal 12/25/24 03/02/25 03/02/25 Rx mcg/actuation nasal congestion #16 grams spray,suspension (Flonase Allergy Relief) gabapentin 600 mg tablet 600 mg PO Q8H #270 tabs 09/1303/02/25 03/02/25 Rx insulin glargine 100 unit/mL (3 65 unit (0.65 mL) SUBC UT BID #15 mL 12/25/24 03/02/25 03/02/25 Rx mL) subcutaneous pen (Lantus Solostar U-100 Insulin) insulin lispro 100 unit/mL 15 unit (0.15 mL) SUBCUT TI D #15 mL 12/25/24 03/02/25 03/02/25 Rx subcutaneous pen (Humalog KwikPen (U-100) Insulin) ropinirole 4 mg tablet 8 mg (2 x 4 mg) PO BID #360 tabs 12/25/24 03/02/25 03/02/25 Rx famotidine 40 mg tablet 40 mg PO BID #180 tabs 01/0103/02/25 03/02/25 Rx losartan 25 mg tablet 12.5 mg (1/2 x 25 mg) PO PANCHO LY #45 01/01/25 03/02/25 03/02/25 Rx tabs flash glucose scanning reader #1 ea 01/16/25 03/02/25 Unknown Rx (FreeStyle Jenae 2 Vantage) Diabetic shoe with Custom #1 ea 01/23/25 03/02/25 Unkn own Rx accommodative insoles ertapenem 1 gram solution for 1 g IV DAILY 11 days Unknown Rx injection furosemide 20 mg tablet (Lasix) 20 mg PO DAILY #90 tab s 03/07/25 Unknown Rx lidocaine 5 % topical patch 1 patch topical [id number] #20 ea 03/07/25 Unknown Rx linezolid 600 mg tablet 600 mg PO BID 11 days #22 ta bs 03/07/25 Unknown Rx Allergies Allergy/AdvReac Type Severity Reaction Status Date / Time Penicillins Allergy ALGY-Hives Verified 02/20/25 13:15 Current Medications Generic Name Dose Route Start Last Admin Trade Name Freq PRN Reason Stop Dose Admin Acetaminophen 650 mg 03/02/25 16:42 03/06/25 09:13 Acetaminophen 325 Mg Tablet PO 650 mg Q6H PRN Administration Mild/Mod Pain Or Temp >/= 101 Albuterol Sulfate 2.5 mg 03/02/25 17:02 03/06/25 08:03 Albuterol 2.5 Mg/3 Ml Neb INHALATION 2.5 mg Q4H PRN Administration shortness of breath or wheezing Aspirin 81 mg 03/03/25 05:00 03/07/25 05:04 Aspirin 81 Mg Ec Tablet PO 81 mg DAILY RAFAELA Administration Atorvastatin Calcium 40 mg 03/03/25 05:00 03/07/25 05:04 Atorvastatin 40 Mg Tablet PO 40 mg DAILY RAFAELA Administration Clopidogrel Bisulfate 75 mg 03/03/25 05:00 03/07/25 05:04 Clopidogrel 75 Mg Tablet PO 75 mg DAILY RAFAELA Administration Docusate Sodium 100 mg 03/02/25 17:00 03/07/25 15:59 Docusate Sodium 100 Mg Capsule PO 100 mg BID RAFAELA Administration Enoxaparin Sodium 40 mg 03/07/25 17:00 03/07/25 15:59 Enoxaparin 40 Mg/0.4 Ml Syringe SUBCUT 40 mg Q24H RAFAELA Administration Famotidine 40 mg 03/03/25 18:00 03/07/25 15:59 Famotidine 20 Mg Tablet PO 40 mg BID RAFAELA Administration Gabapentin 300 mg 03/03/25 12:11 03/07/25 11:48 Gabapentin 300 Mg Capsule PO 300 mg Q8H RAFAELA Administration Vancomycin HCl 1,500 mg in 300 mls @ 200 mls/hr 03/07/25 15:00 03/07/25 15:06 Vancocin IV 03/07/25 16:29 200 mls/hr ONCE ONE Administration Insulin Glargine 65 unit 03/03/25 12:05 03/06/25 21:03 Insulin Glargine 100 Units/1 Ml SUBCUT 65 unit BEDTIME RAFAELA Administration Insulin Human Lispro 0 unit 03/02/25 18:00 03/07/25 11:48 Insulin Lispro 100 Unit/1 Ml SUBCUT 10 unit WM&BEDTIME RAFAELA Administration Protocol Lidocaine 1 patch 03/07/25 08:45 03/07/25 15:58 Lidocaine 5% Patch TOPICAL Not Given [id number] [facility] Losartan Potassium 12.5 mg 03/03/25 05:00 03/03/25 08:19 Losartan 25 Mg Tablet PO Not Given On Hold: 03/03/25 12:10 DAILY RAFAELA Meropenem 1,000 mg 03/05/25 18:45 03/07/25 08:33 Meropenem 1,000 Mg Sdv IVP 1,000 mg Q12H RAFAELA Administration Protocol Ondansetron HCl 4 mg 03/02/25 16:42 03/05/25 06:42 Ondansetron 2 Mg/Ml Sdv 2 Ml IVP 4 mg Q8H PRN Administration vomiting, or N/V if npo Oxycodone HCl 5 mg 03/04/25 01:20 03/07/25 15:59 Oxycodone 5 Mg Ir Tab/Cap PO 5 mg Q4H PRN Administration MODERATE PAIN Ropinirole HCl 8 mg 03/04/25 09:45 03/07/25 15:59 Ropinirole 2 Mg Tablet PO 8 mg BID RAFAELA Administration PFSH Acute 2 PFSH: Medical History (Updated 03/07/25 @ 16:35 by Gladys Isaac NP) Prepatellar bursitis, right knee Osteoarthritis of right knee Acute pain of right knee 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 BG well controlled with scheduled insulin -consistent carb diet as tolerated Parastomal hernia PETER (obstructive sleep apnea) History of bladder cancer Hx of intestinal obstruction Surgical History History of appendectomy History of cholecystectomy History of shoulder surgery History of urostomy History of esophageal hernia repair Family History Mother Thyroid disease Hypertension Father Hypertension Social History Smoking and tobacco/nicotine status: former use of tobacco/nicotine Quit status (tobacco/nicotine): has quit using Year quit tobacco: 2009 Former quit date comment: previously 4 ppd Alcohol intake: former Substance/Drug Use: never Lives independently: Yes Household members: other Details: brother Marital status: / Number of children: 1 Number of grandchildren: 2 service: No Current occupational status: retired and 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 gender identity: Male Special jose carlos needs: No Agree to transfusion: Yes Vitals/I&O/Wt Last Vital Signs Temp 100.2 F H 03/07/25 15:18 Pulse 84 03/07/25 15:18 Resp 24 H 03/07/25 15:59 BP 133/84 03/07/25 15:18 Pulse Ox 91 03/07/25 15:18 O2 Del Method Room Air 03/07/25 10:15 O2 Flow Rate 5 03/07/25 07:44 03/07/25 03/07/25 03/07/25 06:59 14:59 22:59 Intake Total 1020 / 1020 Output Total 1075 / 1075 Balance -55 / -55 Weight last 48 hrs Weight 222 lb 4.8 oz Weight 222 lb 3.615 oz Weight 222 lb 3.615 oz Physical Exam 2 Narrative: General: No apparent distress, healthy appearing, well nourished HENMT: normoceophalic Muskuloskeletal: Full ROM Respiratory: Normal respiratory effort, clear to auscultation bilaterally throughout all lung horn, no use of accessory muscles Cardio: No JVD, regular rate, regular rhythm, S1 S2 normal, no murmurs, peripheral pulses 2+ radial palpated bilaterally Extremities: Full ROM, normal, normal capillary refill, no cyanosis or edema Neuro: Alert and oriented x4 Psych: Affect normal Skin: No rashes or lesions noted, no wounds Data 03/07/25 04:46 03/07/25 04:46 Micro: Microbiology 03/02/25 13:52 Blood Culture - Final Blood NO GROWTH AFTER 5 DAYS 03/07/25 13:50 Blood Culture - Preliminary Blood SPECIMEN COLLECTED 03/07/25 13:45 Blood Culture - Preliminary Blood SPECIMEN COLLECTED 03/05/25 11:30 Urine Culture - Final Urine,Clean Catch 03/02/25 13:54 Blood Culture - Final Blood Staphylococcus aureus 03/06/25 09:00 Gram Stain - Final Sputum - Expectorated Sputum 03/05/25 10:55 Blood Culture - Preliminary Blood Enterococcus faecalis 03/05/25 10:57 Blood Culture - Preliminary Blood NEGATIVE TO DATE A&P Assessment and plan 1. Severe sepsis: 2. Positive blood culture: Plan: At this time patient has fever, positive blood culture of MSSA. We recommend preceding with GWEN to rule out possible infective endocarditis due to fever, positive blood culture of MSSA. Discussed risks and benefits of procedure with patient and including esophageal damage/anesthesia complications. They both verbalized full understanding and would like to proceed. Most likely, we will be doing this Wednesday. PDMP PDMP Reviewed: Not Reviewed Consult Attestations 2 Medical Necessity Statement: Deferred to primary. Coding Level of Care Code Acute Code for [facility] Fwd Diagnoses Severe sepsis A41.9; R65.20 Positive blood culture R78.81
[2025-03-07] MEDS: HYDROmorphone 0.5 MG/0.5 ML INJ 0.4 MG IVP (18:25)
[2025-03-07] MEDS: insulin glargine 100 units/1 mL 65 UNIT SUBCUT (21:20)
[2025-03-08] VITALS (10 sets, daily range): BP systolic 96–134; BP diastolic 61–72; PULSE 71–87; RESP 12–22; TEMP 36.6–36.8; O2SAT 91–97
[2025-03-08 05:28] LABS: Hematocrit 33.6 % (37-53); Hemoglobin 11.50 g/dL (11.27-16.99); Mean Corpuscular HGB Conc 34.2 g/dL (30-55); Mean Corpuscular Hemoglobin 29.6 pg (27-33); Mean Corpuscular Volume 86.6 fl (82-101); Nucleated Red Blood Cells % 0 %; Platelet Count 134 10^3/cmm (157-399); Red Blood Count 3.88 10^6/uL (3.85-5.65); White Blood Count 6.68 10^3/uL (3.29-11.43)
[2025-03-08 07:02] LABS: Alanine Aminotransferase 40 U/L (0-41); Albumin Level 3.1 g/dL (3.5-5.2); Alkaline Phosphatase 107 U/L (40-130); Anion Gap 16.3 (5-19); Aspartate Amino Transferase 59 U/L (0-40); Blood Urea Nitrogen 38 mg/dL (8-23); Calcium 8.5 mg/dL (8.5-10.5); Carbon Dioxide 23 mmol/L (22-29); Chloride 96 mmol/L (98-107); Globulin 3.5 g/dL (1.3-4.6); Glucose 77 mg/dL (65-115); Osmolality Calculated 280 mOsm/kg (285-295); Potassium 4.3 mmol/L (3.5-5.1); Sodium 131 mmol/L (136-145); Total Protein 6.6 g/dL (6.6-8.7)
--- NOTE | 2025-03-08 08:14 | P.PN_ITS ---
Subjective 2 Subjective: no new c/o Medications: Reviewed: Yes Vitals/I&O/Wt Last Vital Signs Temp 99.0 F 03/07/25 19:56 Pulse 74 03/08/25 07:45 Resp 18 03/08/25 07:45 BP 116/62 03/08/25 04:00 Pulse Ox 91 03/08/25 07:45 O2 Del Method Room Air 03/08/25 07:45 O2 Flow Rate 3 03/07/25 19:56 03/07/25 03/08/25 03/08/25 22:59 06:59 14:59 Intake Total 540 / 1560 Output Total 750 / 1825 500 / 2325 Balance -210 / -265 -500 / -765 Weight last 48 hrs Weight 100.8 kg Weight 100.834 kg Physical Exam 2 Narrative: Vital signs noted. HEENT normocephalic atraumatic Neck is supple Lungs have crackles and rhonchi. Heart regular positive S1-S2. Abdomen is soft positive bowel sounds positive ostomy with hernia around it. Extremities do not have edema Poor distal pulses. Neuro awake alert oriented x 3 Data 03/08/25 04:47 03/08/25 06:11 Micro: Microbiology 03/06/25 09:00 Gram Stain - Final Sputum - Expectorated Sputum Sputum Culture - Preliminary Yeast species 03/02/25 13:52 Blood Culture - Final Blood NO GROWTH AFTER 5 DAYS 03/07/25 13:50 Blood Culture - Preliminary Blood SPECIMEN COLLECTED 03/07/25 13:45 Blood Culture - Preliminary Blood SPECIMEN COLLECTED 03/05/25 11:30 Urine Culture - Final Urine,Clean Catch A&P Assessment and plan 1. Acute kidney injury: 74-year-old man underlying diabetes with neuropathy, peripheral vascular disease, heart failure preserved EF, CAD, hyperlipidemia, obstructive sleep apnea. Patient is here with infection presumed pneumonia versus UTI . 1. Acute on chronic kidney disease stage III:Creatinine baseline is in the range of 1.2-1.4, creatinine currently is in the 1.7/1.8 range and stable. UA 2+ protein and trace blood, also consistent with UTI showing 4+ bacteria and positive nitrates. Etiology of current JULY likely ATN from hypotension. Creatinine is currently stable, continue to monitor. CT scan with normal-sized kidneys. -, started PO lasix 40 mg daily avoid nephrotoxic agents and IV contrast studies. 2. Hyponatremia , sodium dropped to 129 today, check BMP in a.m. and Lasix IV today, urine osmolality pending 3. Sepsis in the setting of complicated UTI and pneumonia, staph aureus and enterococcus bacteremia , plan for GWEN 4. Metabolic encephalopathy, improving Patient was seen and examined with aid of a nurse using A/V equipment. The patient consented to telehealth Plan: See above. PDMP PDMP Reviewed: Not Reviewed Attestations 2 Medical Necessity Statement*: PER SHRUTI Coding Level of Care Code Acute Code for [facility] Fwd Diagnoses Acute kidney injury N17.9
[2025-03-08] MEDS: oxyCODONE 5 mg IR Tab/Cap PO ×3 (08:25→22:00)
[2025-03-08] MEDS: meropenem 1,000 mg SDV 1000 MG IVP ×2 (08:27→22:03)
[2025-03-08] MEDS: HYDROmorphone 0.5 MG/0.5 ML INJ 0.4 MG IVP ×3 (11:01→23:46)
--- NOTE | 2025-03-08 12:22 | P.PN_ITS ---
<Statement entered by Bassam Tony M.D - 03/15/25 10:50> Patient was cared for in conjunction with an advanced practice practitioner.? I reviewed the chart and all pertinent data including imaging, telemetry, and laboratory results.? I discussed the patient in detail with the advanced practice practitioner.? Please see? their documentation for progress note, testing results and agreed upon plan of care for the patient. Subjective 2 Subjective: No new complaints today. Vitals/I&O/Wt Last Vital Signs Temp 97.8 F 03/08/25 08:00 Pulse 83 03/08/25 08:00 Resp 19 H 03/08/25 08:25 BP 121/70 03/08/25 08:00 Pulse Ox 97 03/08/25 08:00 O2 Del Method Room Air 03/08/25 07:45 O2 Flow Rate 3 03/07/25 19:56 03/07/25 03/08/25 03/08/25 22:59 06:59 14:59 Intake Total 540 / 1560 360 / 360 Output Total 750 / 1825 500 / 2325 Balance -210 / -265 -500 / -765 360 / 360 Weight last 48 hrs Weight 222 lb 3.615 oz Weight 222 lb 4.8 oz Physical Exam 2 Narrative: General: No apparent distress, healthy appearing, well nourished HENMT: normoceophalic Muskuloskeletal: Full ROM Respiratory: Normal respiratory effort, clear to auscultation bilaterally throughout all lung horn, no use of accessory muscles Cardio: No JVD, regular rate, regular rhythm, S1 S2 normal, no murmurs, peripheral pulses 2+ radial palpated bilaterally Extremities: Full ROM, normal, normal capillary refill, no cyanosis or edema Neuro: Alert and oriented x4 Psych: Affect normal Skin: No rashes or lesions noted, no wounds Data 03/08/25 04:47 03/08/25 06:11 Micro: Microbiology 03/06/25 09:00 Gram Stain - Final Sputum - Expectorated Sputum Sputum Culture - Preliminary Yeast species 03/02/25 13:52 Blood Culture - Final Blood NO GROWTH AFTER 5 DAYS 03/07/25 13:50 Blood Culture - Preliminary Blood SPECIMEN COLLECTED 03/07/25 13:45 Blood Culture - Preliminary Blood SPECIMEN COLLECTED 03/05/25 11:30 Urine Culture - Final Urine,Clean Catch A&P Assessment and plan 1. Severe sepsis: 2. Positive blood culture: Plan: At this time patient has fever, positive blood culture of MSSA. We recommend preceding with GWEN to rule out possible infective endocarditis due to fever, positive blood culture of MSSA. Discussed risks and benefits of procedure with patient and including esophageal damage/anesthesia complications. They both verbalized full understanding and would like to proceed. Will make NPO after midnight and plan on doing tomorrow. PDMP PDMP Reviewed: Not Reviewed Attestations 2 Medical Necessity Statement*: Deferred to primary. Coding Level of Care Code Acute Code for g Fwd Diagnoses Severe sepsis A41.9; R65.20 Positive blood culture R78.81
--- NOTE | 2025-03-08 16:39 | P.CONIM_ITS ---
Providers/Reason For Consult 2 Consulting Physician/Specialty*: Magda Feng MD/ Infectious disease Reason for Consult*: Staph aureus and enterococcus bacteremia Requesting Physician: Greg Blanco MD Attending Physician: Greg Blanco Primary Care Provider: Ivett Still MD History of Present Illness History of Present Illness Cole Troncoso is a 74 year old male with a past medical history of diabetes mellitus, history of bladder cancer, currently with ileal conduit in place x 30 years , parastomal hernia, history of hemorrhagic stroke who presented to the emergency room on March 02, 2025 with chief complaints of fever altered mental status and shortness of breath. He was thought to have a urinary tract infection given a positive UA with positive nitrite, 4+ bacteria. Urine culture eventually revealed multiple gram-negative's including procidentia and Serratia species. More significantly blood culture from March 02, 2025 returned with MSSA. Follow-up blood culture on March 05, 2025 with Enterococcus faecalis 3 out of 4 bottles positive, amp-S , Vanc -S per discussion with the [employer] at this time. Follow-up blood culture from March 07, 2025 currently pending at this time. Patient was febrile 103 Fahrenheit upon admission, currently fever curve has improved however Tmax persisting to be 100.2 Fahrenheit. The hospitalist had discussed this case with me yesterday for an outpatient referral for UTI. However given recovery of significant organisms including Enterococcus faecalis and MSSA on blood culture with ongoing low-grade fever without the same organisms recovered from the urine, I recommended further evaluation for endocarditis. 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 Denies any recent change to the ulcer however states that he does not have much sensation in the foot. Shallow ulcer also noted over the left lateral tibia, states this is unchanged. No underlying cardiac or orthopedic hardware Review of Systems 2 General: Reports: 10 or more systems reviewed and unremarkable except in HPI and below Const: Denies: fever(s), chills or body aches Eyes: Denies: change in vision, blurry vision or photophobia ENMT: Reports: hoarseness; Denies: throat pain, enlarged tonsils, odynophagia or nasal congestion Card: Denies: chest pain, palpitations, irregular heart rhythm, edema, swelling of feet/ankles, lightheadedness, pre-syncope, dyspnea on exertion or orthopnea Resp: Denies: dyspnea, productive cough, non-productive cough, wheezing, stridor, pain on inspiration, change in phlegm color, hemoptysis or chest congestion GI: Denies: abdominal pain, nausea, vomiting, hematemesis, coffee ground emesis, dysphagia, heartburn, diarrhea, constipation, GI cramping, change in stool character, hematochezia or melena : Denies: flank pain, dysuria, urinary frequency, urinary urgency, urinary hesitancy or hematuria Musc: Denies: neck pain, back pain, extremity pain, joint swelling, joint warmth or deformity Neuro: Denies: headache(s), numbness in extremities, weakness in extremities, sensory changes, difficulty walking, frequent falls, dizziness, vertigo, behavioral changes, Slurred speech present or seizure-like activity Psych: Denies: anxiety, depression, suicidal ideation or homicidal ideation Endo: Denies: polyuria, polydipsia, tired all the time, cold intolerance or hot flashes Alfredo/Lymph: Denies: easy bruising or easy bleeding Medications/Allergies Home Medications ?Medication ?Instructions ?Recorded ?Confirmed ?Last Taken ?Type CHALKYITSIK boot #1 ea 08/21/24 03/02/25 Unkn own Rx carbon fiber afo #1 ea 12/20/24 03/02/25 Unkn own Rx albuterol sulfate 90 mcg/actuation 2 inh inhalation Q4 H PRN shortness 12/25/24 03/02/25 Unknown Rx aerosol inhaler of breath or wheezing #18 gr ams aspirin 81 mg tablet,delayed 81 mg PO DAILY #90 tabs 1 03/02/25 03/02/25 Rx release atorvastatin 40 mg tablet (Lipitor) 40 mg PO DAILY #90 tabs 12/25/24 03/02/25 03/02/25 Rx clopidogrel 75 mg tablet 75 mg PO DAILY #90 tabs 09/1303/02/25 03/02/25 Rx flash glucose sensor (FreeStyle #2 ea 12/25/24 5 Unknown Rx Jenae 2 Sensor kit) fluticasone propionate 50 1 spray intranasal DAILY PRN nasal 12/25/24 03/02/25 03/02/25 Rx mcg/actuation nasal congestion #16 grams spray,suspension (Flonase Allergy Relief) gabapentin 600 mg tablet 600 mg PO Q8H #270 tabs 09/1303/02/25 03/02/25 Rx insulin glargine 100 unit/mL (3 65 unit (0.65 mL) SUBC UT BID #15 mL 12/25/24 03/02/25 03/02/25 Rx mL) subcutaneous pen (Lantus Solostar U-100 Insulin) insulin lispro 100 unit/mL 15 unit (0.15 mL) SUBCUT TI D #15 mL 12/25/24 03/02/25 03/02/25 Rx subcutaneous pen (Humalog KwikPen (U-100) Insulin) ropinirole 4 mg tablet 8 mg (2 x 4 mg) PO BID #360 tabs 12/25/24 03/02/25 03/02/25 Rx famotidine 40 mg tablet 40 mg PO BID #180 tabs 01/0103/02/25 03/02/25 Rx losartan 25 mg tablet 12.5 mg (1/2 x 25 mg) PO PANCHO LY #45 01/01/25 03/02/25 03/02/25 Rx tabs flash glucose scanning reader #1 ea 01/16/25 03/02/25 Unknown Rx (FreeStyle Jenae 2 [place]) Diabetic shoe with Custom #1 ea 01/23/25 03/02/25 Unkn own Rx accommodative insoles ertapenem 1 gram solution for 1 g IV DAILY 11 days Unknown Rx injection furosemide 20 mg tablet (Lasix) 20 mg PO DAILY #90 tab s 03/07/25 Unknown Rx lidocaine 5 % topical patch 1 patch topical [id number] #20 ea 03/07/25 Unknown Rx linezolid 600 mg tablet 600 mg PO BID 11 days #22 ta bs 03/07/25 Unknown Rx Allergies Allergy/AdvReac Type Severity Reaction Status Date / Time Penicillins Allergy ALGY-Hives Verified 02/20/25 13:15 Current Medications Generic Name Dose Route Start Last Admin Trade Name Freq PRN Reason Stop Dose Admin Acetaminophen 650 mg 03/02/25 16:42 03/06/25 09:13 Acetaminophen 325 Mg Tablet PO 650 mg Q6H PRN Administration Mild/Mod Pain Or Temp >/= 101 Albuterol Sulfate 2.5 mg 03/02/25 17:02 03/06/25 08:03 Albuterol 2.5 Mg/3 Ml Neb INHALATION 2.5 mg Q4H PRN Administration shortness of breath or wheezing Aspirin 81 mg 03/03/25 05:00 03/07/25 05:04 Aspirin 81 Mg Ec Tablet PO 81 mg DAILY RAFAELA Administration Atorvastatin Calcium 40 mg 03/03/25 05:00 03/07/25 05:04 Atorvastatin 40 Mg Tablet PO 40 mg DAILY RAFAELA Administration Clopidogrel Bisulfate 75 mg 03/03/25 05:00 03/07/25 05:04 Clopidogrel 75 Mg Tablet PO 75 mg DAILY [facility] Administration Docusate Sodium 100 mg 03/02/25 17:00 03/07/25 15:59 Docusate Sodium 100 Mg Capsule PO 100 mg BID RAFAELA Administration Enoxaparin Sodium 40 mg 03/07/25 17:00 03/07/25 15:59 Enoxaparin 40 Mg/0.4 Ml Syringe SUBCUT 40 mg Q24H RAFAELA Administration Famotidine 40 mg 03/03/25 18:00 03/07/25 15:59 Famotidine 20 Mg Tablet PO 40 mg BID [facility] Administration Gabapentin 300 mg 03/03/25 12:11 03/07/25 11:48 Gabapentin 300 Mg Capsule PO 300 mg Q8H [facility] Administration Hydromorphone HCl 0.4 mg 03/07/25 18:09 03/07/25 18:25 Hydromorphone 0.5 Mg/0.5 Ml Inj IVP 0.4 mg Q4H PRN Administration SEVERE PAIN Insulin Glargine 65 unit 03/03/25 12:05 03/06/25 21:03 Insulin Glargine 100 Units/1 Ml SUBCUT 65 unit BEDTIME [facility] Administration Insulin Human Lispro 0 unit 03/02/25 18:00 03/07/25 16:48 Insulin Lispro 100 Unit/1 Ml SUBCUT Not Given WM&BEDTIME [facility] Protocol Lidocaine 1 patch 03/07/25 08:45 03/07/25 15:58 Lidocaine 5% Patch TOPICAL Not Given [id number] [facility] Losartan Potassium 12.5 mg 03/03/25 05:00 03/03/25 08:19 Losartan 25 Mg Tablet PO Not Given On Hold: 03/03/25 12:10 DAILY RAFAELA Meropenem 1,000 mg 03/05/25 18:45 03/07/25 08:33 Meropenem 1,000 Mg Sdv IVP 1,000 mg Q12H RAFAELA Administration Protocol Ondansetron HCl 4 mg 03/02/25 16:42 03/05/25 06:42 Ondansetron 2 Mg/Ml Sdv 2 Ml IVP 4 mg Q8H PRN Administration vomiting, or N/V if npo Oxycodone HCl 5 mg 03/04/25 01:20 03/07/25 15:59 Oxycodone 5 Mg Ir Tab/Cap PO 5 mg Q4H PRN Administration MODERATE PAIN Ropinirole HCl 8 mg 03/04/25 09:45 03/07/25 15:59 Ropinirole 2 Mg Tablet PO 8 mg BID RAFAELA Administration Additional Medication Information Abx history : Meropenem 03/05- current ; 03/02 x 1 Linezolid 03/04- current ; 03/02 x 1 levofloxacin 03/02-03/04 PFSH Acute 2 PFSH: Medical History (Updated 03/10/25 @ 07:43 by Magda Feng MD) Prepatellar bursitis, right knee Osteoarthritis of right knee Acute pain of right knee 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 BG well controlled with scheduled insulin -consistent carb diet as tolerated Parastomal hernia PETER (obstructive sleep apnea) History of bladder cancer Hx of intestinal obstruction Surgical History (Updated 03/10/25 @ 07:42 by Magda Feng MD) History of appendectomy History of cholecystectomy History of shoulder surgery History of urostomy History of esophageal hernia repair Family History Mother Thyroid disease Hypertension Father Hypertension Social History Smoking and tobacco/nicotine status: former use of tobacco/nicotine Quit status (tobacco/nicotine): has quit using Year quit tobacco: 2009 Former quit date comment: previously 4 ppd Alcohol intake: former Substance/Drug Use: never Lives independently: Yes Household members: other Details: brother Marital status: / Number of children: 1 Number of grandchildren: 2 service: No Current occupational status: retired and 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 gender identity: Male Special jose carlos needs: No Agree to transfusion: Yes Vitals/I&O/Wt Last Vital Signs Temp 100.2 F H 03/07/25 15:18 Pulse 84 03/07/25 15:18 Resp 24 H 03/07/25 15:59 BP 133/84 03/07/25 15:18 Pulse Ox 90 03/07/25 16:59 O2 Del Method Nasal Cannula 03/07/25 16:59 O2 Flow Rate 3 03/07/25 16:59 03/07/25 03/07/25 03/07/25 06:59 14:59 22:59 Intake Total 1020 / 1020 540 / 1560 Output Total 1075 / 1075 450 / 1525 Balance -55 / -55 90 / 35 Weight last 48 hrs Weight 100.834 kg Weight 100.8 kg Weight 100.8 kg Physical Exam 2 Narrative: General: No acute distress, AO x3, laying in bed HEENT: PERRLA, pupils bilaterally equal and reactive, pallors not present Chest: Normal vesicular breath sounds, no added sounds, equal good air entry bilaterally CVS: S1-S2 regular, no murmurs, no tachycardia, no gallops, no rubs Abdomen: Soft, nontender, extensive scarring noted over the abdomen. ileal conduit with stoma over the ruq, surrouding site healthy, urine in bag and pouch without any abnormal discharge or blood. No mucus. 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, left tibia ulceration appears superficial Data 03/10/25 04:49 03/10/25 06:02 Micro: Microbiology 03/06/25 09:00 Gram Stain - Final Sputum - Expectorated Sputum Sputum Culture - Preliminary Yeast species 03/02/25 13:52 Blood Culture - Final Blood NO GROWTH AFTER 5 DAYS 03/07/25 13:50 Blood Culture - Preliminary Blood SPECIMEN COLLECTED 03/07/25 13:45 Blood Culture - Preliminary Blood SPECIMEN COLLECTED 03/05/25 11:30 Urine Culture - Final Urine,Clean Catch 03/02/25 13:54 Blood Culture - Final Blood Staphylococcus aureus 03/05/25 10:55 Blood Culture - Preliminary Blood Enterococcus faecalis Other data: Radiology Impressions Abdomen/Pelvis CT 03/03/25 11:57 IMPRESSION: 1. Kidneys demonstrate nonspecific perinephric stranding bilaterally. UTI is not excluded. There is no evidence of obstructing urinary tract stones. Multiple calcifications are seen in both kidneys however these are felt to represent vascular calcifications not renal stones. 2. 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 No intra-abdominal fluid collections are appreciated. Small amount of ascites seen on previous study has resolved. 3. Cardiomegaly with small bilateral pleural effusions suggests possibility of mild heart failure. Lumbar Spine MRI 03/06/25 18:34 IMPRESSION: 1. Progression of degenerative disc disease and stenoses at several levels since 08/12/2023. 2. There is a small amount of edema within the L3-4 disc. 3. Central disc protrusion with annular fissure at L3-4. Facet and ligamentum flavum disease. Moderate central, subarticular recess and bilateral foraminal stenosis. Stenosis has progressed since the prior study. 4. There is a new soft tissue focus posterior to L3 highly suspicious for a very small disc extrusion. Disc extrusion would be from the L3-4 disc which has migrated superiorly. 5. Mild central, subarticular recess and foraminal stenosis at L4-5. 6. Moderate central, bilateral subarticular recess with moderate LEFT and mild RIGHT foraminal stenosis at L2-3 which has progressed. 7. Mild RIGHT foraminal stenosis at L1-2. Chest X-Ray 03/07/25 10:21 Impression: Satisfactory insertion of right PICC line. Chest CT 03/07/25 14:32 IMPRESSION: 1. No acute findings. 2. Mild bibasilar atelectasis. Laboratory Results WBC 6.59 10^3/uL (3.29-11.43) 03/10/25 04:49 RBC 3.86 10^6/uL (3.85-5.65) 03/10/25 04:49 Hgb 11.10 g/dL (11.27-16.99) L 03/10/25 04:49 Hct 33.9 % (37-53) L 03/10/25 04:49 MCV 87.8 fl (82-101) 03/10/25 04:49 MCH 28.8 pg (27-33) 03/10/25 04:49 MCHC 32.7 g/dL (30-55) 03/10/25 04:49 RDW 13.2 % (12.1-15.1) 03/10/25 04:49 Plt Count 166 10^3/cmm (157-399) 03/10/25 04:49 MPV 10.0 fL (7.4-10.4) 03/10/25 04:49 Neut % (Auto) 56.5 % 03/10/25 04:49 Lymph % (Auto) 25.9 % 03/10/25 04:49 [place]oke % (Auto) 15.0 % 03/10/25 04:49 Eos % (Auto) 1.5 % 03/10/25 04:49 Baso % (Auto) 0.6 % 03/10/25 04:49 Neut # (Auto) 3.72 10^3/uL (1.8-7.7) 03/10/25 04:49 Lymph # (Auto) 1.7 10^3/uL (0.8-4.8) 03/10/25 04:49 [place] # (Auto) 1.0 10^3/uL (0.2-0.9) H 03/10/25 04:49 Eos # (Auto) 0.1 10^3/uL (0.0-0.8) 03/10/25 04:49 Baso # (Auto) 0.0 10^3/uL (0.0-0.1) 03/10/25 04:49 Nucleated RBC % (auto) 0 % 03/10/25 04:49 Nucleated RBCs # 0.0 /100WBC 03/10/25 04:49 Specimen Type Arterial 03/02/25 13:50 Sample Site Radial, right 03/02/25 13:50 ABG pH 7.48 (7.35-7.45) H 03/02/25 13:50 ABG pCO2 37.3 mmHg (35-45) 03/02/25 13:50 ABG pO2 56.0 mmHg (80.0-100.0) L 03/02/25 13:50 ABG PO2/FiO2 Ratio 140 03/02/25 13:50 ABG HCO3 27.5 mmol/L (22-26) H 03/02/25 13:50 ABG O2 Saturation 91.5 03/02/25 13:50 ABG Base Excess 3.8 mmol/L (-2.0-2.0) H 03/02/25 13:50 Daron Test Pos 03/02/25 13:50 A-a O2 Gradient 23.8 mmHg (5-10) H 03/02/25 13:50 Hematocrit 45.6 % (42-52) 03/02/25 13:50 Hgb O2 Saturation 89.4 % (95-100) L 03/02/25 13:50 Carboxyhemoglobin 1.3 %THgb (0.4-20.1) 03/02/25 13:50 Methemoglobin 1.0 % (0.4-1.5) 03/02/25 13:50 Total Hemoglobin 14.9 g/dL (14-18) 03/02/25 13:50 Sodium 134.0 mmol/L (131-143) 03/02/25 13:50 Potassium 3.8 mmol/L (3.5-5.0) 03/02/25 13:50 Glucose 371.0 mg/dL (70-115) H 03/02/25 13:50 Ionized Calcium 1.1 mmol/L (1.1-1.4) 03/02/25 13:50 O2 Delivery Device Nc 03/02/25 13:50 O2 Liters/Min 5.0 % 03/02/25 13:50 FiO2 40.0 % 03/02/25 13:50 [employer] ID glc 03/02/25 13:50 Sodium 130 mmol/L (136-145) L 03/10/25 06:02 Potassium 4.2 mmol/L (3.5-5.1) 03/10/25 06:02 Chloride 97 mmol/L (98-107) L 03/10/25 06:02 Carbon Dioxide 22 mmol/L (22-29) 03/10/25 06:02 Anion Gap 15.2 (5-19) 03/10/25 06:02 BUN 31 mg/dL (8-23) H 03/10/25 06:02 Creatinine 1.3 mg/dL (0.7-1.2) H 03/10/25 06:02 GFR Calculation Not Reportable 03/10/25 06:02 Glucose 119 mg/dL (65-115) H 03/10/25 06:02 POC Glucose 140 mg/dL (70-110) H 03/10/25 05:56 Estimat Average Glucose 361 03/02/25 13:05 Hemoglobin A1c 14.2 % (4.0-6.0) H 03/02/25 13:05 Calculated Osmolality 278 mOsm/kg (285-295) L 03/10/25 06:02 Lactic Acid 2.9 mmol/L (0.5-2.2) H 03/02/25 13:05 Lactic Acid (Sepsis) 2.6 mmol/L (0.5-2.2) H 03/02/25 16:33 Uric Acid 6.7 mg/dL (3.4-7.0) 03/05/25 10:55 Calcium 8.3 mg/dL (8.5-10.5) L 03/10/25 06:02 Phosphorus 3.3 mg/dL (2.5-4.5) 03/08/25 06:11 Magnesium 2.1 mg/dL (1.7-2.3) 03/09/25 05:13 Total Bilirubin 0.6 mg/dL (0.15-1.2) 03/10/25 06:02 AST 37 U/L (0-40) 03/10/25 06:02 ALT 38 U/L (0-41) 03/10/25 06:02 Alkaline Phosphatase 103 U/L (40-130) 03/10/25 06:02 Creatine Kinase 713 U/L (39-308) H* 03/05/25 10:55 Troponin T Baseline 48 ng/L (0-15) H 03/02/25 13:05 Troponin T 60 Minute 42.25 ng/L (0-15) H 03/02/25 13:52 Delta Troponin T -5.75 ABS# (0-10) L 03/02/25 13:52 Troponin T Hi Sens 6Hr 55.23 ng/L (0-15) H 03/02/25 19:09 Troponin T Hi Sens 6Hr Delta 7.23 ng/L (0-12) 03/02/25 19:09 C-Reactive Protein 61.9 mg/L (0.0-4.9) H 03/02/25 13:05 NT-Pro-B Natriuret Pep 570 pg/mL (0-125) H 03/02/25 13:05 Total Protein 6.4 g/dL (6.6-8.7) L 03/10/25 06:02 Albumin 2.8 g/dL (3.5-5.2) L 03/10/25 06:02 Globulin 3.6 g/dL (1.3-4.6) 03/10/25 06:02 Triglycerides 140 mg/dL (0-150) 03/03/25 02:23 Cholesterol 121 mg/dL (0-200) 03/03/25 02:23 LDL Cholesterol, Calc 60 mg/dL (50-129) 03/03/25 02:23 HDL Cholesterol 33 mg/dL (60-100) L 03/03/25 02:23 LDL/HDL Ratio 1.82 RATIO (0.00-3.22) 03/03/25 02:23 Cholesterol/HDL Ratio 3.67 mg/dL (1.0-5.00) 03/03/25 02:23 25-OH Vitamin D Total 14 ng/mL (30-100) L 03/06/25 08:04 Procalcitonin 0.25 ng/mL (0-0.5) 03/02/25 13:05 TSH 0.73 uIU/mL (0.27-4.20) 03/05/25 10:55 Random Cortisol 18.43 ug/dL (2.47-19.5) 03/05/25 10:55 Urine Color Yellow (Yellow) 03/05/25 11:30 Urine Appearance Clear (CLEAR) 03/05/25 11:30 Urine pH 6.5 (5-7) 03/05/25 11:30 Ur Specific [place] 1.013 (1.005-1.030) 03/05/25 11:30 Urine Protein 2+ (Negative) A 03/05/25 11:30 Urine Glucose (UA) Negative (Normal) 03/05/25 11:30 Urine Ketones Negative (Negative) 03/05/25 11:30 Urine Blood 2+ (Negative) A 03/05/25 11:30 Urine Nitrate Negative (Negative) 03/05/25 11:30 Urine Bilirubin Negative (Negative) 03/05/25 11:30 Urine Urobilinogen 0.2 mg/dL (Negative) 03/05/25 11:30 Ur Leukocyte Esterase 1+ (Negative) A 03/05/25 11:30 Urine RBC 0-2 /hpf (0-2) 03/05/25 11:30 Urine WBC 11-20 /hpf (0-5) H 03/05/25 11:30 Ur Squamous Epith Cells 0-5 /hpf (0-5) 03/05/25 11:30 Amorphous Sediment Not Reportable 03/05/25 11:30 Urine Bacteria None seen /hpf (NONE) 03/05/25 11:30 Hyaline Casts 2.46 /lpf 03/05/25 11:30 Ur Random Sodium 46 mmol/L 03/05/25 11:30 Ur Random Potassium 28 mmol/L 03/05/25 11:30 Ur Random Chloride 16 mmol/L 03/05/25 11:30 Nasal MRSA (PCR) Not detected (Negative) 03/02/25 20:15 Vancomycin Trough 11.3 ug/mL (10-15) 03/09/25 14:09 BLAS Screen Negative (NEGATIVE) 03/05/25 10:55 Complement C3 155 mg/dL (90-180) 03/05/25 10:55 Complement C4 26 mg/dL (10-40) 03/05/25 10:55 Adenovirus (PCR) Not detected (NOT DETECT) 03/02/25 20:15 C. pneumoniae DNA (PCR) Not detected (NOT DETECT) 03/02/25 20:15 Coronavirus 229E (PCR) Not detected (NOT DETECT) 03/02/25 20:15 Hepatitis C Antibody Non-reactive (Nonreactive) 03/05/25 10:55 Human Metapneumovir PCR Not detected (NOT DETECT) 03/02/25 20:15 Influenza A (H1) PCR Not detected (NOT DETECT) 03/02/25 20:15 Influenza A (PCR) Negative (Negative) 03/02/25 13:36 Influ A (H1/09) PCR Not detected (NOT DETECT) 03/02/25 20:15 Influenza A (H3) PCR Not detected (NOT DETECT) 03/02/25 20:15 Influenza Type A (PCR) Not detected (NOT DETECT) 03/02/25 20:15 Influenza Type B (PCR) Not detected (NOT DETECT) 03/02/25 20:15 M. pneumoniae (PCR) Not detected (NOT DETECT) 03/02/25 20:15 Parainfluenza 1 (PCR) Not detected (NOT DETECT) 03/02/25 20:15 Parainfluenza 2 (PCR) Not detected (NOT DETECT) 03/02/25 20:15 Parainfluenza 3 (PCR) Not detected (NOT DETECT) 03/02/25 20:15 Parainfluenza 4 (PCR) Not detected (NOT DETECT) 03/02/25 20:15 RSV (PCR) Negative (Negative) 03/02/25 13:36 RSV Type A (PCR) Not detected (NOT DETECT) 03/02/25 20:15 RSV Type B (PCR) Not detected (NOT DETECT) 03/02/25 20:15 Entero/Rhino (PCR) Not detected (NOT DETECT) 03/02/25 20:15 SARS-CoV-2 (PCR) Not detected (NOT DETECT) 03/02/25 20:15 Anti-Streptolysin O Ab 98 IU/mL (<200) 03/05/25 10:55 A&P Assessment and plan 1. Cellulitis of right foot: 2. MSSA bacteremia: 3. Bacteremia due to Enterococcus: 4. History of ileal conduit: 5. 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 During course of evaluation found to have positive urine culture with Serratia sp and Providentia. Thought to have a UTI upon presentation, receoved Levofloxacin 03/02-03/04, transitioned to meropenem thereafter. No hydronephrosis noted on abdominal imaging More significantly, blood cx positive for MSSA 03/02 and Enterococcus fecalis on 03/05. Started on Linezolid thereafter. Neither of the blood organisms isolated from urine. Stoma site appears to be healthy. No significant change in urine output from stoma. NO recent blockages or significant mucus. Noted to have ulceration over plantar aspect of the foot with surrouding erythema and mild fluctuance, concerned about underlying osteomyelitis, cellulitis. 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 Continues to have low grade fever at this time, given + blood cx for highly concerning organisms with MSSA and Enterococcus, with recent h/o osteomyelitis, recommend GWEN to evaluate for endocarditis and MRI foot to assess for osteomeyelitis and any underlying abscess. D/C linezolid as bacteriostatic, would not be ideal choice for BSI that needs to be treated with prolonged abx course. Change to iv vancomycin interesting prior skin cx have revealed MRSA on multiple occasions, however current blood cx with MSSA. Chart notes allergy to penicillin, patient reports hives several years ago. Review of chart shows he has received iv ceftriaxone in 2019 without any issues and currently tolerating meropenem. Plan to d/c meropenem in the morning and proceed with test dose of Zosyn in am, followed by full dose if does not develop any allergic reaction. Will follow. PDMP PDMP Reviewed: Not Reviewed Consult Attestations 2 Medical Necessity Statement: per admitting Coding Level of Care Code Acute Code for Chg Fwd High MDM includes number and complexity of problems actively addressed during encounter, amount and/or complexity of data reviewed/ordered and described risk of complication, morbidity or mortality of management as documented Diagnoses Cellulitis of right foot L03.115 MSSA bacteremia R78.81; B95.61 Bacteremia due to Enterococcus R78.81; B95.2 History of ileal conduit Z98.890 Urine culture positive R82.79
--- NOTE | 2025-03-08 17:26 | PM.PN ---
Subjective Subjective: Denies new symptoms. Anxious has been bothered by his back pain. Responding partially to lidocaine patch. Vitals/I&O/Wt Last Vital Signs Temp 97.8 F 03/08/25 16:00 Pulse 74 03/08/25 16:00 Resp 17 03/08/25 16:00 BP 111/61 03/08/25 16:00 Pulse Ox 95 03/08/25 16:00 O2 Del Method Room Air 03/08/25 07:45 O2 Flow Rate 3 03/07/25 19:56 03/08/25 03/08/25 03/08/25 06:59 14:59 22:59 Intake Total 250 / 1810 600 / 600 250 / 850 Output Total 500 / 2325 950 / 950 Balance -250 / -515 600 / 600 -700 / -100 Weight last 48 hrs Weight 100.8 kg Weight 100.834 kg Physical Exam Narrative: Accompanied by his Const: COMMON NORMALS: patient oriented x3 and alert GENERAL APPEARANCE: cooperative ORIENTATION/CONSCIOUSNESS: Yes awake HENMT: COMMON NORMALS: oropharynx normal Neck/C-Spine: COMMON NORMALS: no JVD Resp: COMMON NORMALS: normal respiratory effort and clear to auscultation bilaterally AUSCULTATION: clear to auscultation bilaterally Cardio: COMMON NORMALS: no JVD, regular rhythm, S1 normal heart sound present, S2 normal heart sound present and No murmurs present (Cardio) RHYTHM: regular rhythm HEART SOUNDS: S1 normal heart sound present and S2 normal heart sound present GI: COMMON NORMALS: Normal to inspection, nondistended, normoactive bowel sounds present, Soft to palpation and non-tender PALPATION: Yes Soft to palpation OTHER: Right lower abdomen urostomy with surrounding herniation, soft, nontender, without any erythema, urostomy appears pink and perfused without any signs of ischemia. Amount of clear urine in the bag. Back/Pelvis: OTHER: Without rash, swelling, bruising or any mass. Extremity: COMMON NORMALS: no joint enlargement and no pedal edema OTHER: Right foot deformity with Charcot foot, unstageable ulcer with black eschar around 2-1/2 cm in diameter with surrounding bruising Neuro: COMMON NORMALS: patient oriented x3 and moves all extremities SENSORIUM/ORIENTATION: Yes alert Skin: COMMON NORMALS: no rashes or lesions noted GENERAL SKIN EXAM: no rashes or lesions noted Data 03/08/25 04:47 03/08/25 06:11 Micro: Microbiology 03/07/25 13:50 Blood Culture - Preliminary Blood NEGATIVE TO DATE 03/07/25 13:45 Blood Culture - Preliminary Blood NEGATIVE TO DATE 03/06/25 09:00 Gram Stain - Final Sputum - Expectorated Sputum Sputum Culture - Preliminary Yeast species 03/02/25 13:52 Blood Culture - Final Blood NO GROWTH AFTER 5 DAYS A&P Assessment and plan 1. Type 2 diabetes mellitus with other specified complication, unspecified whether custodial insulin use: 2. Charcot joint of right foot: 3. Non-pressure chronic ulcer of other part of right foot with fat layer exposed: Plan: Severe Sepsis Acute metabolic Encephalopathy, resolved. CAP Bacteremia Concern for possible endocarditis enterococcal bacteremia 3/4 bottles but also 1/4 bottles MSSA. Source unclear. Appreciate factious disease recommendation. Tolerated vancomycin. Continue with meropenem at current time. Pending further adjustment, trial of Zosyn and cooperation with pharmacy in the morning Sinus tachycardia with penicillin allergy. Further consideration of imaging of right foot per discussion with ID provider - with JULY attempt imaging with MRI. GWEN planned for tomorrow. N.p.o. after midnight. Discussed with cardiology team. Discussed with nursing, vocational case manager. Hypoxemia Gradually improving. Continues 3 L. Saturation 97%. Reviewed chest CT, unremarkable. Coverage for possible pneumonia as above, previously with productive cough, recurrent fever. Concern for rising creatinine with worsening renal function, concern for possible prerenal etiology discussed with nephrology. However, concern for concomitant CHF, possible congestive nephropathy as per nephrology. PO Lasix. Monitor blood pressure. Monitor for risk of electrolyte abnormality, worsening JULY. Reviewed blood culture, remaining negative. Reviewed urine bacterial antigens, negative. Reviewed CBC, without leukocytosis. Discussed with nursing, vocational case manager. If continues to improve and urine cultures come back possible discharge in the morning. AMS resolved. Likely acute metabolic encephalopathy. 03/02: CXR: Reviewed and results as follows: Cardiomegaly with central venous congestion and interstitial edema. Early congestive failure. Abnormal blood culture: Reviewed blood culture, Staph aureus updated to Enterococcus. May suspect urinary source. However, discussed with him unstageable wound on the bottom of his right foot with Charcot deformity. Discussed with wool batting worker, appreciate consultation. Reviewed TTE. Blood cultures repeated, pending. With lower back pain, due to recurrent fever obtain MRI. Reviewed MRI results. Complicated UTI Serratia is MDRO, including resistance to quinolones. Possible reason for lack of response. Cont meropenem. Renally dosed. Monitor for risk of seizure. CT abdomen pelvis, noted perinephric stranding. Discussed with him findings of pyelonephritis. With recurrent UTI discussed with him would benefit from setting up follow-up with urology for reassessment of ileal conduit, with noted herniation, question of whether it may be contributing to his recurrent UTIs, although otherwise has been asymptomatic from it. He verbalized that he plans to do so. With lower back pain. 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 No evidence of incarceration. - Hx of bladder cancer w/ urostomy CHF Additional Lasix today. Reviewed CMP. PO Lasix. Acute diastolic CHF, prior echo reviewed, EF 60%. Grade 2 diastolic dysfunction. No RWMA. Difficult to gauge volume status although has had congestive changes on chest x-ray. Persistent hypoxia. Will need home O2 - 03/02: CXR: Reviewed and results as follows: Cardiomegaly with central venous congestion and interstitial edema. Early congestive failure. - Dly wt, strict I&Os, cardiac diet - Titrate O2 as indicated - Monitor CBC, CMP, Mag dly. Hypomagnesemia Recheck magnesium. CAD Dyslipidemia - Lipid panel ordered, pending - Continue home medications aspirin 81 mg PO dly, atorvastatin 40 mg PO dly, clopidogrel 75 mg PO Dly - Cardiac diet HTN -With soft blood pressure hold losartan 12.5mg PO dly DM2 CKD stage 2 Diabetic neuropathy - A1c ordered, pending. - Blood glucose monitoring, ACHS - Low regimen sliding scale - Hypoglycemic protocol - Cardiac Carb consistent diet - Continue home medication gabapentin 600 mg PO Q8H. With soft blood pressure reduced to 300. PETER - Does not wear cpap at home - Continuous pulse ox GERD - On home famotidine 40mg PO dly Non-pressure chronic ulcer right foot - Chronic wounds on his leg and feet, healing pretty well at this point. - Follows with Dr. Day outpt. Appreciate consultation. -Further imaging assessment as above Hx of bladder cancer w/ urostomy placement CODE STATUS: Full Code VTE prophylaxis: Lovenox PDMP PDMP Reviewed: Not Reviewed Attestations Medical Necessity Statement*: Continue admission for assessment management of complicated UTI with urostomy, enterococcal bacteremia, neobladder, possible pneumonia, acute CHF, JULY, additional problems. and High MDM includes amount and/or complexity of data reviewed/ordered [ resulted lab(s)/test(s), ordered lab(s)/test(s) and other healthcare professional discussion] and described risk of complication, morbidity or mortality of management as documented Diagnoses Type 2 diabetes mellitus with other specified complication, unspecified whether custodial insulin use E11.69 Diabetes mellitus long term care administrator insulin use: unspecified custodial insulin use status Diabetes mellitus complication status: with other specified complication Charcot joint of right foot M14.671 Non-pressure chronic ulcer of other part of right foot with fat layer exposed L97.512
[2025-03-08] MEDS: insulin glargine 100 units/1 mL 65 UNIT SUBCUT (22:03)
[2025-03-09] VITALS (8 sets, daily range): BP systolic 102–125; BP diastolic 56–79; PULSE 67–93; RESP 14–25; TEMP 36.7–37.1; O2SAT 90–95
[2025-03-09 04:49] LABS: Hematocrit 37.6 % (37-53); Hemoglobin 12.50 g/dL (11.27-16.99); Mean Corpuscular HGB Conc 33.2 g/dL (30-55); Mean Corpuscular Hemoglobin 28.7 pg (27-33); Mean Corpuscular Volume 86.2 fl (82-101); Nucleated Red Blood Cells % 0 %; Platelet Count 177 10^3/cmm (157-399); Red Blood Count 4.36 10^6/uL (3.85-5.65); White Blood Count 9.58 10^3/uL (3.29-11.43)
[2025-03-09] MEDS: HYDROmorphone 0.5 MG/0.5 ML INJ 0.4 MG IVP ×2 (04:52→18:28)
[2025-03-09 06:04] LABS: Alanine Aminotransferase 42 U/L (0-41); Albumin Level 2.8 g/dL (3.5-5.2); Alkaline Phosphatase 109 U/L (40-130); Aspartate Amino Transferase 52 U/L (0-40); Blood Urea Nitrogen 33 mg/dL (8-23); Calcium 8.3 mg/dL (8.5-10.5); Carbon Dioxide 21 mmol/L (22-29); Chloride 96 mmol/L (98-107); Globulin 3.9 g/dL (1.3-4.6); Glucose 82 mg/dL (65-115); Magnesium 2.1 mg/dL (1.7-2.3); Osmolality Calculated 276 mOsm/kg (285-295); Sodium 130 mmol/L (136-145); Total Protein 6.7 g/dL (6.6-8.7)
[2025-03-09 06:08] LABS: Anion Gap 16.9 (5-19); Potassium 3.9 mmol/L (3.5-5.1)
--- NOTE | 2025-03-09 08:00 | USCV_ITS ---
Cole Troncoso Age: 74 Gender: M : 1950 Exam Date: 03/09/2025 08:34 Ordering Phys: Gladys Isaac NP Technologist: REGINE Exam Location: [facility] [place] Indication: ?endocarditis BP: / HR: Rhythm: Sinus Technical Quality: Good MEASUREMENTS (Male / Female) Normal Values Medications Per anesthesia team Complications None Proc. Components After anesthesia sedated patient, we proceeded with advancing GWEN probe FINDINGS Left Ventricle Normal in size. LV systolic function is normal with EF of 55 to 60%. No regional wall motion abnormalities. Right Ventricle Normal in size and function Right Atrium Normal in size Left Atrium Normal in size IA Septum Grossly normal LA Appendage No left atrial appendage thrombus Mitral Valve Structurally normal valve. Trace mitral regurgitation. No evidence of vegetation seen. Aortic Valve Structurally normal aortic valve. No significant stenosis. No evidence of vegetation. Tricuspid Valve No vegetation seen. Pulmonic Valve Grossly normal Pericardium Normal Aorta Mild atherosclerotic plaque CONCLUSIONS LV systolic function is normal with EF of 55-60% No left atrial appendage thrombus Trace mitral regurgitation. No vegetations seen Mild aortic atherosclerotic plaque seen Bassam Tony MD (Electronically Signed) Final Date: 11 March 2025 10:38 S
[2025-03-09] MEDS: meropenem 1,000 mg SDV 1000 MG IVP (08:02)
--- NOTE | 2025-03-09 08:23 | PC.SOCIAL ---
IMM Updated Updated pt on IMM. No questions voiced. Provided pt a copy. Initialed, dated, & timed copy in chart.
--- NOTE | 2025-03-09 08:40 | ANES.PREANE2 ---
Pre-Anesthetic Assessment Height/Weight: Height 6 ft Weight 226 lb 6.636 oz Temp Pulse Resp BP Pulse Ox O2 Del Method O2 Flow Rate 98.6 F 67 18 109/67 93 Room Air 4 03/09/25 07:58 03/09/25 08:16 03/09/25 08:16 03/09/25 07:58 03/09/25 08:16 03/09/25 08:16 03/08/25 20:12 Preop Diagnosis: CHF Was Beta Jarad taken within 24 hours: N/A Was Clonidine taken within 24 hours: N/A Social Tobacco and No alcohol Exam alert, oriented x 3, clear to auscultation bilaterally and regular rate & rhythm Airway Submandibular: within normal limits Cervical ROM: within normal limits Mallampati: Class III Anesthetic Plan ASA status: 4 Anesthesia: MAC Other: No patient initially admitted 03/02/2025 for pneumonia and hypoxemia as well as sepsis No prior issues with anesthesia Patient had a little Coke at 3 AM, no solid food since yesterday evening Acute metabolic encephalopathy has resolved Respiratory status is improving, on room air, SpO2 92% Acute diastolic CHF, prior echo showing EF of 60%. Cardiomegaly seen on chest x-ray Diabetic neuropathy noted CKD stage II PETER, no CPAP GERD on Pepcid Labs reviewed from today and acceptable for procedure, NA 130, K+ 3.9 Plan for MAC anesthesia Medications/Allergies Home Medications ?Medication ?Instructions ?Recorded ?Confirmed ?Last Taken ?Type [place] boot #1 ea 08/21/24 03/02/25 Unknown Rx carbon fiber afo #1 ea 12/20/24 03/02/25 Unknown Rx albuterol sulfate 90 mcg/actuation 2 inh inhalation Q4H PRN shortness 12/25/24 03/02/25 Unknown Rx aerosol inhaler of breath or wheezing #18 grams aspirin 81 mg tablet,delayed 81 mg PO DAILY #90 tabs 12/25/24 03/02/25 03/02/25 Rx release atorvastatin 40 mg tablet (Lipitor) 40 mg PO DAILY #90 tabs 12/25/24 03/02/25 03/02/25 Rx clopidogrel 75 mg tablet 75 mg PO DAILY #90 tabs 12/25/24 03/02/25 03/02/25 Rx flash glucose sensor (FreeStyle #2 ea 12/25/24 03/02/25 Unknown Rx Jenae 2 Sensor kit) fluticasone propionate 50 1 spray intranasal DAILY PRN nasal 12/25/24 03/02/25 03/02/25 Rx mcg/actuation nasal congestion #16 grams spray,suspension (Flonase Allergy Relief) gabapentin 600 mg tablet 600 mg PO Q8H #270 tabs 12/25/24 03/02/25 03/02/25 Rx insulin glargine 100 unit/mL (3 65 unit (0.65 mL) SUBCUT BID #15 mL 12/25/24 03/02/25 03/02/25 Rx mL) subcutaneous pen (Lantus Solostar U-100 Insulin) insulin lispro 100 unit/mL 15 unit (0.15 mL) SUBCUT TID #15 mL 12/25/24 03/02/25 03/02/25 Rx subcutaneous pen (Humalog KwikPen (U-100) Insulin) ropinirole 4 mg tablet 8 mg (2 x 4 mg) PO BID #360 tabs 12/25/24 03/02/25 03/02/25 Rx famotidine 40 mg tablet 40 mg PO BID #180 tabs 01/01/25 03/02/25 03/02/25 Rx losartan 25 mg tablet 12.5 mg (1/2 x 25 mg) PO DAILY #45 01/01/25 03/02/25 03/02/25 Rx tabs flash glucose scanning reader #1 ea 01/16/25 03/02/25 Unknown Rx (FreeStyle Jenae 2 [place]) Diabetic shoe with Custom #1 ea 01/23/25 03/02/25 Unknown Rx accommodative insoles ertapenem 1 gram solution for 1 g IV DAILY 11 days 03/07/25 Unknown Rx injection furosemide 20 mg tablet (Lasix) 20 mg PO DAILY #90 tabs 03/07/25 Unknown Rx lidocaine 5 % topical patch 1 patch topical [id number] #20 ea 03/07/25 Unknown Rx linezolid 600 mg tablet 600 mg PO BID 11 days #22 tabs 03/07/25 Unknown Rx Allergies Allergy/AdvReac Type Severity Reaction Status Date / Time Penicillins Allergy ALGY-Hives Verified 02/20/25 13:15 Current Medications Generic Name Dose Route Start Last Admin Trade Name Freq PRN Reason Stop Dose Admin Acetaminophen 650 mg 03/02/25 16:42 03/06/25 09:13 Acetaminophen 325 Mg Tablet PO 650 mg Q6H PRN Administration Mild/Mod Pain Or Temp >/= 101 Albuterol Sulfate 2.5 mg 03/02/25 17:02 03/06/25 08:03 Albuterol 2.5 Mg/3 Ml Neb INHALATION 2.5 mg Q4H PRN Administration shortness of breath or wheezing Aspirin 81 mg 03/03/25 05:00 03/09/25 04:53 Aspirin 81 Mg Ec Tablet PO 81 mg DAILY RAFAELA Administration Atorvastatin Calcium 40 mg 03/03/25 05:00 03/09/25 04:53 Atorvastatin 40 Mg Tablet PO 40 mg DAILY RAFAELA Administration Clopidogrel Bisulfate 75 mg 03/03/25 05:00 03/09/25 04:53 Clopidogrel 75 Mg Tablet PO 75 mg DAILY RAFAELA Administration Docusate Sodium 100 mg 03/02/25 17:00 03/09/25 04:53 Docusate Sodium 100 Mg Capsule PO 100 mg BID RAFAELA Administration Enoxaparin Sodium 40 mg 03/07/25 17:00 03/08/25 17:51 Enoxaparin 40 Mg/0.4 Ml Syringe SUBCUT 40 mg Q24H RAFAELA Administration Famotidine 40 mg 03/03/25 18:00 03/09/25 04:53 Famotidine 20 Mg Tablet PO 40 mg BID RAFAELA Administration Gabapentin 300 mg 03/03/25 12:11 03/09/25 03:38 Gabapentin 300 Mg Capsule PO 300 mg Q8H RAFAELA Administration Hydromorphone HCl 0.4 mg 03/07/25 18:09 03/09/25 04:52 Hydromorphone 0.5 Mg/0.5 Ml Inj IVP 0.4 mg Q4H PRN Administration SEVERE PAIN Vancomycin HCl 750 mg/ Sodium 250 mls @ 250 mls/hr 03/08/25 03:00 03/09/25 04:51 Chloride IV Infused Q12H RAFAELA Infusion Insulin Glargine 65 unit 03/03/25 12:05 03/08/25 22:03 Insulin Glargine 100 Units/1 Ml SUBCUT 65 unit BEDTIME RAFAELA Administration Insulin Human Lispro 0 unit 03/02/25 18:00 03/09/25 07:56 Insulin Lispro 100 Unit/1 Ml SUBCUT Not Given WM&BEDTIME RAFAELA Protocol Lidocaine 1 patch 03/07/25 08:45 03/09/25 04:54 Lidocaine 5% Patch TOPICAL 1 patch [id number] RAFAELA Administration Losartan Potassium 12.5 mg 03/03/25 05:00 03/03/25 08:19 Losartan 25 Mg Tablet PO Not Given On Hold: 03/03/25 12:10 DAILY RAFAELA Meropenem 1,000 mg 03/05/25 18:45 03/09/25 08:02 Meropenem 1,000 Mg Sdv IVP 1,000 mg Q12H RAFAELA Administration Protocol Ondansetron HCl 4 mg 03/02/25 16:42 03/05/25 06:42 Ondansetron 2 Mg/Ml Sdv 2 Ml IVP 4 mg Q8H PRN Administration vomiting, or N/V if npo Oxycodone HCl 5 mg 03/04/25 01:20 03/08/25 22:00 Oxycodone 5 Mg Ir Tab/Cap PO 5 mg Q4H PRN Administration MODERATE PAIN Ropinirole HCl 8 mg 03/04/25 09:45 03/09/25 04:53 Ropinirole 2 Mg Tablet PO 8 mg BID RAFAELA Administration PFSH Anesthesia Medical History (Updated 03/07/25 @ 16:35 by Gladys Isaac NP) Prepatellar bursitis, right knee Osteoarthritis of right knee Acute pain of right knee 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 BG well controlled with scheduled insulin -consistent carb diet as tolerated Parastomal hernia PETER (obstructive sleep apnea) History of bladder cancer Hx of intestinal obstruction Surgical History History of appendectomy History of cholecystectomy History of shoulder surgery History of urostomy History of esophageal hernia repair Family History Mother Thyroid disease Hypertension Father Hypertension Social History Smoking and tobacco/nicotine status: former use of tobacco/nicotine Quit status (tobacco/nicotine): has quit using Year quit tobacco: 2009 Former quit date comment: previously 4 ppd Alcohol intake: former Substance/Drug Use: never Lives independently: Yes Household members: other Details: brother Marital status: / Number of children: 1 Number of grandchildren: 2 service: No Current occupational status: retired and 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 gender identity: Male Special jose carlos needs: No Agree to transfusion: Yes Data Anesthesia 03/09/25 04:07 03/09/25 05:13 Short CBC 03/08/25 03/09/25 Range/Units 04:47 04:07 WBC 6.68 9.58 (3.29-11.43) 10^3/uL Hgb 11.50 12.50 (11.27-16.99) g/dL Hct 33.6 L 37.6 (37-53) % MCV 86.6 86.2 (82-101) fl Plt Count 134 L 177 D (157-399) 10^3/cmm Neut % (Auto) 59.0 40.9 % Neut # (Auto) 3.93 3.92 (1.8-7.7) 10^3/uL BMP 03/08/25 03/08/25 03/09/25 04:47 06:11 04:07 Sodium Cancelled 131 L Cancelled Potassium Cancelled 4.3 Cancelled Chloride Cancelled 96 L Cancelled Carbon Dioxide Cancelled 23 Cancelled BUN Cancelled 38 H Cancelled Creatinine Cancelled 1.4 H Cancelled Glucose Cancelled 77 Cancelled Calcium Cancelled 8.5 Cancelled 03/09/25 05:13 Sodium 130 L Potassium 3.9 Chloride 96 L Carbon Dioxide 21 L BUN 33 H Creatinine 1.2 Glucose 82 Calcium 8.3 L Liver Function 03/08/25 03/08/25 03/09/25 Range/Units 04:47 06:11 04:07 Total Bilirubin Cancelled 0.5 Cancelled AST Cancelled 59 H Cancelled ALT Cancelled 40 Cancelled Alkaline Phosphatase Cancelled 107 Cancelled Albumin Cancelled 3.1 L Cancelled 03/09/25 Range/Units 05:13 Total Bilirubin 0.6 AST 52 H ALT 42 H Alkaline Phosphatase 109 Albumin 2.8 L Microbiology 03/07/25 13:50 Blood Culture - Preliminary Blood NEGATIVE TO DATE 03/07/25 13:45 Blood Culture - Preliminary Blood NEGATIVE TO DATE Cardiac Studies: Echocardiogram 03/05/25 Sestamibi Stress Test (Cardiology) 01/23/25
--- NOTE | 2025-03-09 09:13 | W.PM.OPSUD ---
Surgery/Procedure H&P Update DATE OF PROCEDURE: March 09, 2025 DATE H&P PERFORMED: 03/07/25 H&P UPDATE INFORMATION: I have reviewed H&P completed within last 30 days, I have examined patient prior to procedure and No changes to prior documentation PREOP DIAGNOSIS: Bacteremia PRIMARY INDICATION FOR PROCEDURE: Bacteremia PLANNED PROCEDURE: Transesophageal echocardiogram Anesthesia team will be sedating patient.
--- NOTE | 2025-03-09 09:56 | PC.NURSE ---
procedure note: Start time 924 End time 933 Patient tolerated well no primary nurse Wasfl and MINE DEPUTY HILST at bedside for recovery
--- NOTE | 2025-03-09 10:24 | P.PN_ITS ---
Subjective 2 Subjective: Patient seen bedside, in good spirits. Denies any foot pain left or right. Tolerating regular diet. Vitals/I&O/Wt Last Vital Signs Temp 98.6 F 03/09/25 07:58 Pulse 67 03/09/25 08:16 Resp 18 03/09/25 08:16 BP 109/67 03/09/25 07:58 Pulse Ox 93 03/09/25 08:16 O2 Del Method Room Air 03/09/25 08:16 O2 Flow Rate 4 03/08/25 20:12 03/08/25 03/09/25 03/09/25 22:59 06:59 14:59 Intake Total 250 / 850 250 / 1100 Output Total 950 / 950 850 / 1800 Balance -700 / -100 -600 / -700 Weight last 48 hrs Weight 226 lb 6.636 oz Weight 222 lb 3.615 oz Physical Exam 2 Narrative: GENERAL: Patient is alert and oriented ?3 and in no acute distress. The following is a focused bilateral lower extremity exam. VASCULAR: Dorsalis pedis palpable bilaterally. Posterior tibial arteries palpable. Capillary refill time less than 3 seconds to the distal hallux bilaterally. Calf is supple and nontender proximally and distally. Mild edema to the right foot consistent with postoperative course. NEUROLOGICAL: Absent protective sensation bilateral foot. DERMATOLOGICAL: Grade 2 wound at [place]-bottom foot deformity of the right plantar midfoot measures 1.1, cm x 1.1 cm cm x 0.2 cm with granular base and epithelializing margin. Does not probe to bone, tunnel or undermine. Previously documented wound to the left great toe are epithelialized. MUSCULOSKELETAL: Rocker-bottom foot deformity to the right foot secondary to Charcot. Decreased dorsiflexion left ankle graded 4/5 able to dorsiflex against gravity and light resistance, does not have full strength with dorsiflexion at the left ankle. No crepitus with soft tissue palpation right plantar foot. Data 03/09/25 04:07 03/09/25 05:13 Micro: Microbiology 03/07/25 13:50 Blood Culture - Preliminary Blood NEGATIVE TO DATE 03/07/25 13:45 Blood Culture - Preliminary Blood NEGATIVE TO DATE A&P Assessment and plan 1. Type 2 diabetes mellitus with other specified complication, unspecified whether termite exterminator helper insulin use: 2. Charcot joint of right foot: 3. Non-pressure chronic ulcer of other part of right foot with fat layer exposed: Plan: Wound exposed to fat layer right foot demonstrates granular base and epithelialized margins, wound is measuring smaller and healthier compared to previous evaluation. There is no periwound erythema or warmth and no purulent drainage, wound does not tunnel or undermine. Primary dressing of Hydrofera Blue secured with Omnifix tape will be changed every other day. May weight-bear with Charcot restraint orthotic walker to the right lower extremity for offloading. Right foot is less likely that source of bacteremia given healthy clinical appearance with stable interval of healing compared to last evaluation 02/20/2025. Will follow-up in podiatry clinic for right foot wound within 1 week of discharge. Reevaluated right foot wound remains clinically stable without acute signs of infection, continue with current wound care regimen with primary wound dressing of Hydrofera Blue with secondary dressing of Optifoam. Change daily. PDMP PDMP Reviewed: Not Reviewed Attestations 2 Medical Necessity Statement*: Deferred to primary Coding Level of Care Code Acute Code for Chg Fwd Diagnoses Type 2 diabetes mellitus with other specified complication, unspecified whether nursing home insulin use E11.69 Diabetes mellitus complication status: with other specified complication Diabetes mellitus nursing home insulin use: unspecified nursing home insulin use status Charcot joint of right foot M14.671 Non-pressure chronic ulcer of other part of right foot with fat layer exposed L97.512
--- NOTE | 2025-03-09 10:25 | P.PN_ITS ---
Subjective 2 Subjective: no new c/o Medications: Reviewed: Yes Vitals/I&O/Wt Last Vital Signs Temp 98.6 F 03/09/25 07:58 Pulse 67 03/09/25 08:16 Resp 18 03/09/25 08:16 BP 109/67 03/09/25 07:58 Pulse Ox 93 03/09/25 08:16 O2 Del Method Room Air 03/09/25 08:16 O2 Flow Rate 4 03/08/25 20:12 03/08/25 03/09/25 03/09/25 22:59 06:59 14:59 Intake Total 250 / 850 250 / 1100 Output Total 950 / 950 850 / 1800 Balance -700 / -100 -600 / -700 Weight last 48 hrs Weight 102.7 kg Weight 100.8 kg Physical Exam 2 Narrative: Vital signs noted. HEENT normocephalic atraumatic Neck is supple Lungs have crackles and rhonchi. Heart regular positive S1-S2. Abdomen is soft positive bowel sounds positive ostomy with hernia around it. Extremities do not have edema Poor distal pulses. Neuro awake alert oriented x 3 Data 03/09/25 04:07 03/09/25 05:13 Micro: Microbiology 03/07/25 13:50 Blood Culture - Preliminary Blood NEGATIVE TO DATE 03/07/25 13:45 Blood Culture - Preliminary Blood NEGATIVE TO DATE A&P Assessment and plan 1. Acute kidney injury: 74-year-old man underlying diabetes with neuropathy, peripheral vascular disease, heart failure preserved EF, CAD, hyperlipidemia, obstructive sleep apnea. Patient is here with infection presumed pneumonia versus UTI . 1. Acute on chronic kidney disease stage III:Creatinine baseline is in the range of 1.2-1.4, creatinine currently is in the 1.7/1.8 range and stable. UA 2+ protein and trace blood, also consistent with UTI showing 4+ bacteria and positive nitrates. Etiology of current JULY likely ATN from hypotension. Creatinine is currently stable, continue to monitor. CT scan with normal-sized kidneys. -, started PO lasix 40 mg daily avoid nephrotoxic agents and IV contrast studies. 2. Hyponatremia , sodium 130 , monitor 3. Sepsis in the setting of complicated UTI and pneumonia, staph aureus and enterococcus bacteremia , plan for GWEN 4. Metabolic encephalopathy, improving Patient was seen and examined with aid of a nurse using A/V equipment. The patient consented to telehealth Plan: See above. PDMP PDMP Reviewed: Not Reviewed Attestations 2 Medical Necessity Statement*: per medicne Coding Level of Care Code Acute Code for Chg Fwd Diagnoses Acute kidney injury N17.9
--- NOTE | 2025-03-09 11:14 | P.PN_ITS ---
Subjective 2 Subjective: Infectious Disease progress note GWEN without vegetations Tmax 100.2 F on 03/07 pending MRI foot Medications: Medication Review Details: Abx history : Zosyn 03/09 Meropenem 03/05- 03/09 ; 03/02 x 1 Linezolid 03/04- current ; 03/02 x 1 levofloxacin 03/02-03/04 Vitals/I&O/Wt Last Vital Signs Temp 98.6 F 03/09/25 07:58 Pulse 67 03/09/25 08:16 Resp 18 03/09/25 08:16 BP 109/67 03/09/25 07:58 Pulse Ox 93 03/09/25 08:16 O2 Del Method Room Air 03/09/25 08:16 O2 Flow Rate 4 03/08/25 20:12 03/08/25 03/09/25 03/09/25 22:59 06:59 14:59 Intake Total 250 / 850 250 / 1100 Output Total 950 / 950 850 / 1800 Balance -700 / -100 -600 / -700 Weight last 48 hrs Weight 102.7 kg Weight 100.8 kg Physical Exam 2 Narrative: General: No acute distress, AO x3, laying in bed HEENT: PERRLA, pupils bilaterally equal and reactive, pallors not present Chest: Normal vesicular breath sounds, no added sounds, equal good air entry bilaterally CVS: S1-S2 regular, no murmurs, no tachycardia, no gallops, no rubs Abdomen: Soft, nontender, extensive scarring noted over the abdomen. ileal conduit with stoma over the ruq, surrouding site healthy, urine in bag and pouch without any abnormal discharge or blood. No mucus. 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, left tibia ulceration appears superficial Data 03/10/25 04:49 03/10/25 06:02 Micro: Microbiology 03/07/25 13:50 Blood Culture - Preliminary Blood NEGATIVE TO DATE 03/07/25 13:45 Blood Culture - Preliminary Blood NEGATIVE TO DATE A&P Assessment and plan 1. Cellulitis of right foot: 2. MSSA bacteremia: 3. Bacteremia due to Enterococcus: 4. History of ileal conduit: 5. 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 During course of evaluation found to have positive urine culture with Serratia sp and Providentia. Thought to have a UTI upon presentation, receoved Levofloxacin 03/02-03/04, transitioned to meropenem thereafter. No hydronephrosis noted on abdominal imaging More significantly, blood cx positive for MSSA 03/02 and Enterococcus fecalis on 03/05. Started on Linezolid thereafter. Neither of the blood organisms isolated from urine. Stoma site appears to be healthy. No significant change in urine output from stoma. NO recent blockages or significant mucus. Noted to have ulceration over plantar aspect of the foot with surrouding erythema and mild fluctuance, concerned about underlying osteomyelitis, cellulitis. 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 Continues to have low grade fever at this time, given + blood cx for highly concerning organisms with MSSA and Enterococcus, with recent h/o osteomyelitis, recommend GWEN to evaluate for endocarditis and MRI foot to assess for osteomeyelitis and any underlying abscess. D/C linezolid as bacteriostatic, would not be ideal choice for BSI that needs to be treated with prolonged abx course. Change to iv vancomycin interesting prior skin cx have revealed MRSA on multiple occasions, however current blood cx with MSSA. Chart notes allergy to penicillin, patient reports hives several years ago. Review of chart shows he has received iv ceftriaxone in 2019 without any issues and currently tolerating meropenem. Plan to d/c meropenem in the morning and proceed with test dose of Zosyn in am, followed by full dose if does not develop any allergic reaction. Will follow. 03/09/25: GWEN negative for vegetations. Blood cx from 03/07 thus far without any growth. Respiratory cx with Lea , from orpharyngeal thrush. Add Nystatin. MRI foot unable to be completed as patient unable to lay still. TO be attemoted again this evening. Fever curve is improving. Tolerated test dose and full dose of Zosyn this afternoon. D/c Meropenem, change to Zosyn renally dosed. For today, continue iv Zosyn, monitor for any adverse reactions. Continue iv vancomycin. Patient with planned transition to SNF, disposition planning is ongoing. PDMP PDMP Reviewed: Not Reviewed Attestations 2 Medical Necessity Statement*: per admitting Coding Level of Care Code Acute Code for Chg Fwd Diagnoses Cellulitis of right foot L03.115 MSSA bacteremia R78.81; B95.61 Bacteremia due to Enterococcus R78.81; B95.2 History of ileal conduit Z98.890 Urine culture positive R82.79
--- NOTE | 2025-03-09 11:44 | PM.PROC ---
Procedure Note: Date of procedure: 03/09/25 Pre-procedure diagnosis: Bacteremia Post-procedure diagnosis: other Procedure: Transesophageal echocardiogram: No vegetations seen. Normal LV systolic function Performing Provider: Bassam Tony Complications: none Condition: stable Disposition: no change Coding Level of Care Code Acute Code for Osiris Ansari
[2025-03-09] MEDS: piperacillin-tazobactam 3.375 GM in sodium chloride 0.9% (plus) 50 ML IV ×2 (11:59→21:20)
--- NOTE | 2025-03-09 12:34 | PC.NURSE ---
Started on Zosyn Dr, pharmacist and nurse are aware on pt's pcn allergy. Started with 5 mls volume. Monitored for allergic reaction. No allergic reaction noted such as rashes, sob, chest pain. Infusion continued as ordered.
[2025-03-09] MEDS: oxyCODONE 5 mg IR Tab/Cap PO ×2 (14:14→21:21)
--- NOTE | 2025-03-09 14:49 | PM.PN ---
Subjective Subjective: Denies additional symptoms. So far no additional fever. His is helping apply ointment to his back. Vitals/I&O/Wt Last Vital Signs Temp 98.1 F 03/09/25 11:58 Pulse 73 03/09/25 11:58 Resp 16 03/09/25 14:14 BP 116/56 03/09/25 11:58 Pulse Ox 92 03/09/25 14:14 O2 Del Method Room Air 03/09/25 11:58 O2 Flow Rate 4 03/08/25 20:12 03/08/25 03/09/25 03/09/25 22:59 06:59 14:59 Intake Total 250 / 850 250 / 1100 Output Total 950 / 950 850 / 1800 Balance -700 / -100 -600 / -700 Weight last 48 hrs Weight 102.7 kg Weight 100.8 kg Physical Exam Narrative: Accompanied by his Const: COMMON NORMALS: patient oriented x3 and alert GENERAL APPEARANCE: cooperative ORIENTATION/CONSCIOUSNESS: Yes awake HENMT: COMMON NORMALS: oropharynx normal Neck/C-Spine: COMMON NORMALS: no JVD Resp: COMMON NORMALS: normal respiratory effort and clear to auscultation bilaterally AUSCULTATION: clear to auscultation bilaterally Cardio: COMMON NORMALS: no JVD, regular rhythm, S1 normal heart sound present, S2 normal heart sound present and No murmurs present (Cardio) RHYTHM: regular rhythm HEART SOUNDS: S1 normal heart sound present and S2 normal heart sound present GI: COMMON NORMALS: Normal to inspection, nondistended, normoactive bowel sounds present, Soft to palpation and non-tender PALPATION: Yes Soft to palpation OTHER: Right lower abdomen urostomy with surrounding herniation, soft, nontender, without any erythema, urostomy appears pink and perfused without any signs of ischemia. Amount of clear urine in the bag. Back/Pelvis: OTHER: Without rash, swelling, bruising or any mass. Extremity: COMMON NORMALS: no joint enlargement and no pedal edema GENERAL: Yes edema (trace) OTHER: Right foot deformity with Charcot foot, unstageable ulcer with black eschar around 2-1/2 cm in diameter with surrounding bruising Neuro: COMMON NORMALS: patient oriented x3 and moves all extremities SENSORIUM/ORIENTATION: Yes alert Skin: COMMON NORMALS: no rashes or lesions noted GENERAL SKIN EXAM: no rashes or lesions noted Data 03/09/25 04:07 03/09/25 05:13 Micro: Microbiology 03/05/25 10:57 Blood Culture - Final Blood Enterococcus faecalis 03/05/25 10:55 Blood Culture - Final Blood Enterococcus faecalis 03/07/25 13:50 Blood Culture - Preliminary Blood NEGATIVE TO DATE 03/07/25 13:45 Blood Culture - Preliminary Blood NEGATIVE TO DATE A&P Assessment and plan 1. Type 2 diabetes mellitus with other specified complication, unspecified whether intermodal customer service insulin use: 2. Charcot joint of right foot: 3. Non-pressure chronic ulcer of other part of right foot with fat layer exposed: Plan: Severe Sepsis Acute metabolic Encephalopathy, resolved. CAP Bacteremia GWEN today, reviewed cardiology note, unremarkable. Trial of Zosyn today per discussion with ID. Monitor for risk of reaction has tolerated vancomycin so far. Post-DC planning. Plans for rehabilitation at [facility] with IV antibiotics. Discussed with nursing, dependency case manager. Concern for possible endocarditis enterococcal bacteremia 3/4 bottles but also 1/4 bottles MSSA. Source unclear. Further consideration of imaging of right foot per discussion with ID provider - with JULY attempt imaging with MRI. Hypoxemia Gradually improving. Weaning off oxygen down to room air. Saturation 97%. Reviewed chest CT, unremarkable. Coverage for possible pneumonia as above, previously with productive cough, recurrent fever. Concern for rising creatinine with worsening renal function, concern for possible prerenal etiology discussed with nephrology. However, concern for concomitant CHF, possible congestive nephropathy as per nephrology. PO Lasix. Monitor blood pressure. Monitor for risk of electrolyte abnormality, worsening JULY. Reviewed blood culture, remaining negative. Reviewed urine bacterial antigens, negative. Reviewed CBC, without leukocytosis. Discussed with nursing, dependency case manager. If continues to improve and urine cultures come back possible discharge in the morning. AMS resolved. Likely acute metabolic encephalopathy. 03/02: CXR: Reviewed and results as follows: Cardiomegaly with central venous congestion and interstitial edema. Early congestive failure. Abnormal blood culture: Reviewed blood culture, Staph aureus updated to Enterococcus. May suspect urinary source. However, discussed with him unstageable wound on the bottom of his right foot with Charcot deformity. Discussed with physical security engineer, appreciate consultation. Reviewed TTE. Reviewed reviewed blood cultures, pending. With lower back pain, due to recurrent fever obtain MRI. Reviewed MRI results. Further imaging of the right foot. Complicated UTI Repeat urine culture reviewed, cleared up. Serratia is MDRO, including resistance to quinolones. Possible reason for lack of response. Received meropenem. Renally dosed. Monitor for risk of seizure. CT abdomen pelvis, noted perinephric stranding. Discussed with him findings of pyelonephritis. With recurrent UTI discussed with him would benefit from setting up follow-up with urology for reassessment of ileal conduit, with noted herniation, question of whether it may be contributing to his recurrent UTIs, although otherwise has been asymptomatic from it. He verbalized that he plans to do so. With lower back pain. 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 No evidence of incarceration. - Hx of bladder cancer w/ urostomy CHF Additional Lasix today. Reviewed CMP. PO Lasix. Acute diastolic CHF, prior echo reviewed, EF 60%. Grade 2 diastolic dysfunction. No RWMA. Difficult to gauge volume status although has had congestive changes on chest x-ray. Persistent hypoxia. Will need home O2 - 03/02: CXR: Reviewed and results as follows: Cardiomegaly with central venous congestion and interstitial edema. Early congestive failure. - Dly wt, strict I&Os, cardiac diet - Titrate O2 as indicated - Monitor CBC, CMP, Mag dly. Hypomagnesemia Recheck magnesium reviewed. CAD Dyslipidemia - Continue home medications aspirin 81 mg PO dly, atorvastatin 40 mg PO dly, clopidogrel 75 mg PO Dly - Cardiac diet HTN -With soft blood pressure hold losartan 12.5mg PO dly DM2 CKD stage 2 Diabetic neuropathy - A1c ordered, pending. - Blood glucose monitoring, ACHS - Low regimen sliding scale - Hypoglycemic protocol - Cardiac Carb consistent diet - Continue home medication gabapentin 600 mg PO Q8H. With soft blood pressure reduced to 300. PETER - Does not wear cpap at home - Continuous pulse ox GERD - On home famotidine 40mg PO dly Non-pressure chronic ulcer right foot - Chronic wounds on his leg and feet, healing pretty well at this point. - Follows with Dr. Day outpt. Appreciate consultation. -Further imaging assessment as above Hx of bladder cancer w/ urostomy placement CODE STATUS: Full Code VTE prophylaxis: Lovenox PDMP PDMP Reviewed: Not Reviewed Attestations Medical Necessity Statement*: Continue admission for assessment management of complicated UTI with urostomy, enterococcal bacteremia, neobladder, possible pneumonia, acute CHF, JULY, additional problems. and High MDM includes amount and/or complexity of data reviewed/ordered [ previous or external records, resulted lab(s)/test(s), ordered lab(s)/test(s) and other healthcare professional discussion] and described risk of complication, morbidity or mortality of management as documented Diagnoses Type 2 diabetes mellitus with other specified complication, unspecified whether intermodal customer service insulin use E11.69 Diabetes mellitus intermodal customer service insulin use: unspecified penitentiary insulin use status Diabetes mellitus complication status: with other specified complication Charcot joint of right foot M14.671 Non-pressure chronic ulcer of other part of right foot with fat layer exposed L97.512
--- NOTE | 2025-03-09 16:28 | PC.OT ---
Attempted OT Tx x2 in morning and evening, patient asleep and unable to wake both times. Continue treatment plan as stated.
[2025-03-09] MEDS: insulin glargine 100 units/1 mL 65 UNIT SUBCUT (21:21)
[2025-03-10] VITALS (12 sets, daily range): BP systolic 107–138; BP diastolic 55–69; PULSE 70–83; RESP 18–24; TEMP 36.7–37.9; O2SAT 90–96
[2025-03-10] MEDS: piperacillin-tazobactam 3.375 GM in sodium chloride 0.9% (plus) 50 ML IV ×3 (02:38→19:57)
[2025-03-10] MEDS: HYDROmorphone 0.5 MG/0.5 ML INJ 0.4 MG IVP ×3 (03:51→22:36)
[2025-03-10 05:01] LABS: Hematocrit 33.9 % (37-53); Hemoglobin 11.10 g/dL (11.27-16.99); Mean Corpuscular HGB Conc 32.7 g/dL (30-55); Mean Corpuscular Hemoglobin 28.8 pg (27-33); Mean Corpuscular Volume 87.8 fl (82-101); Nucleated Red Blood Cells % 0 %; Platelet Count 166 10^3/cmm (157-399); Red Blood Count 3.86 10^6/uL (3.85-5.65); White Blood Count 6.59 10^3/uL (3.29-11.43)
[2025-03-10 06:29] LABS: Alanine Aminotransferase 38 U/L (0-41); Albumin Level 2.8 g/dL (3.5-5.2); Alkaline Phosphatase 103 U/L (40-130); Anion Gap 15.2 (5-19); Aspartate Amino Transferase 37 U/L (0-40); Blood Urea Nitrogen 31 mg/dL (8-23); Calcium 8.3 mg/dL (8.5-10.5); Carbon Dioxide 22 mmol/L (22-29); Chloride 97 mmol/L (98-107); Globulin 3.6 g/dL (1.3-4.6); Glucose 119 mg/dL (65-115); Osmolality Calculated 278 mOsm/kg (285-295); Potassium 4.2 mmol/L (3.5-5.1); Sodium 130 mmol/L (136-145); Total Protein 6.4 g/dL (6.6-8.7)
--- NOTE | 2025-03-10 08:08 | CTR_ITS ---
PROCEDURE INFORMATION: Exam: CT Right Lower Extremity Without Contrast, Foot Exam date and time: 03/10/2025 8:36 AM Age: 74 years old Clinical indication: Pain; Foot; Right; Additional info: Assess for osteomyelitis, chronic ulcer, right foot , h/o prior osteomyelitis. CT foot TECHNIQUE: Imaging protocol: CT of the right lower extremity without contrast was performed. Exam focused on the foot. Radiation optimization: All CT scans at this facility use at least one of these dose optimization techniques: automated exposure control; mA and/or kV adjustment per patient size (includes targeted exams where dose is matched to clinical indication); or iterative reconstruction. COMPARISON: CT foot RT wo con* [id number] 03/28/2021 8:10 AM RADIATION DOSE METRICS: Total DLP (mGy-cm): 294.83 FINDINGS: Bones/joints: Extensive severe chronic appearing destructive changes throughout the hindfoot, forefoot and midfoot, as can be seen with severe chronic degenerative arthropathy. There are significant erosive and destructive changes throughout the midfoot and hindfoot, and there is resultant severe pes planus deformity. No acute appearing fracture or traumatic malalignment of the toes or metatarsals. No destructive osseous changes along the toes or distal metatarsals. Mild 1st MTP joint degenerative changes. Along the plantar forefoot at the level of the TMT joints there is significant phlegmonous fat stranding and what appears to be a chronic wound (series 13, images 42 through 31). No tracking deep soft tissue gas. Complex fluid along this areas suspected measuring 21 x 1.2 cm (series 12, image 47) in the plantar soft tissues. Soft tissues: Please see above. Mild generalized subcutaneous edema along the foot. Grossly intact appearance of the Achilles tendon and ankle tendons. Thickened proximal plantar fascia. Plantar calcaneal enthesophytes. CT/CT foot RT wo con* [id number] IMPRESSION: 1. Along the plantar forefoot at the level of the TMT joints there is significant phlegmonous fat stranding and what appears to be a chronic wound (series 13, images 42 through 31). No tracking deep soft tissue gas. Complex fluid along this areas suspected measuring 21 x 1.2 cm (series 12, image 47) in the plantar soft tissues. A complex area of phlegmonous change and superinfected collection is suspected. 2. Extensive destructive changes throughout the forefoot and midfoot with changes that can be associated with synovial arthropathy. Given the soft tissue findings osteomyelitis superimposed upon chronic Charcot atrophy can not be excluded. 3. If necessary an MRI with and without contrast could be obtained to further assess. 4. There are changes that can be associated with plantar fasciitis.
--- NOTE | 2025-03-10 08:20 | PM.MISC ---
Assessment & Plan Recommendations: Chart Reviewed. Tolerated Zosyn since yesterday without any adverse events. Fever curve improving. T MAx 99F last 24 hrs. MRI foot unable to be completed as patient could not lay still Changed to CT right foot w/o contrast PICC line was placed 03/07. Blood cx clear as of 03/07/25 Currently on Zosyn and iv vancomycin. Considered discharge on Iv Ampicillin + cefazolin vs Ceftriaxone for Enterococcus fecalis and MSSA bacteremia, however q4h administration will likely not be feasible at [facility]. Will plan discharge on iv vancomcyin 1g iv every 12 hrs for 4 weeks (03/07-03/28) with weekly CBC, Creat, LFT,Vanc trough Complete short course of abx for gram negatives isolated on urine cx 03/05-03/11 (meropenem--> Zosyn), favored more likely colonization. Will follow with CT foot results Diagnosis 1. Cellulitis of right foot: 2. MSSA bacteremia: 3. Bacteremia due to Enterococcus: 4. History of ileal conduit: 5. Urine culture positive:
[2025-03-10] MEDS: oxyCODONE 5 mg IR Tab/Cap PO ×2 (09:01→17:52)
--- NOTE | 2025-03-10 09:43 | P.PN_ITS ---
Subjective 2 Subjective: c/o back pain Medications: Reviewed: Yes Vitals/I&O/Wt Last Vital Signs Temp 99.1 F 03/10/25 07:54 Pulse 77 03/10/25 08:50 Resp 20 H 03/10/25 09:01 BP 112/63 03/10/25 07:54 Pulse Ox 96 03/10/25 09:01 O2 Del Method Room Air 03/10/25 08:50 O2 Flow Rate 4 03/08/25 20:12 03/09/25 03/10/25 03/10/25 22:59 06:59 14:59 Intake Total 550 / 550 540 / 1090 290 / 290 Output Total 2100 / 2100 450 / 2550 Balance -1550 / -1550 90 / -1460 290 / 290 Weight last 48 hrs Weight 102.33 kg Weight 102.7 kg Physical Exam 2 Narrative: Vital signs noted. HEENT normocephalic atraumatic Neck is supple Lungs have crackles and rhonchi. Heart regular positive S1-S2. Abdomen is soft positive bowel sounds positive ostomy with hernia around it. Extremities do not have edema Poor distal pulses. Neuro awake alert oriented x 3 Data 03/10/25 04:49 03/10/25 06:02 Micro: Microbiology 03/06/25 09:00 Gram Stain - Final Sputum - Expectorated Sputum Sputum Culture - Final Lea albicans 03/05/25 10:57 Blood Culture - Final Blood Enterococcus faecalis 03/05/25 10:55 Blood Culture - Final Blood Enterococcus faecalis A&P Assessment and plan 1. Acute kidney injury: 74-year-old man underlying diabetes with neuropathy, peripheral vascular disease, heart failure preserved EF, CAD, hyperlipidemia, obstructive sleep apnea. Patient is here with infection presumed pneumonia versus UTI . 1. Acute on chronic kidney disease stage III:Creatinine baseline is in the range of 1.2-1.4, creatinine currently is in the 1.7/1.8 range and stable. UA 2+ protein and trace blood, also consistent with UTI showing 4+ bacteria and positive nitrates. Etiology of current JULY likely ATN from hypotension. Creatinine is currently stable, continue to monitor. CT scan with normal-sized kidneys. -, started PO lasix 40 mg daily avoid nephrotoxic agents and IV contrast studies. 2. Hyponatremia , sodium 130 , monitor 3. Sepsis in the setting of complicated UTI and pneumonia, staph aureus and enterococcus bacteremia , plan for GWEN 4. Metabolic encephalopathy, improving Patient was seen and examined with aid of a nurse using A/V equipment. The patient consented to telehealth Plan: See above. PDMP PDMP Reviewed: Not Reviewed Attestations 2 Medical Necessity Statement*: per debbie Coding Level of Care Code Acute Code for Chg Fwd Diagnoses Acute kidney injury N17.9
--- NOTE | 2025-03-10 19:06 | P.PN_ITS ---
Subjective 2 Subjective: He reports has been having pain in his right hip. Vitals/I&O/Wt Last Vital Signs Temp 99.1 F 03/10/25 07:54 Pulse 74 03/10/25 15:23 Resp 20 H 03/10/25 17:52 BP 138/69 03/10/25 15:23 Pulse Ox 94 03/10/25 17:52 O2 Del Method Room Air 03/10/25 08:50 O2 Flow Rate 4 03/08/25 20:12 03/10/25 03/10/25 03/10/25 06:59 14:59 22:59 Intake Total 540 / 1090 650 / 650 780 / 1430 Output Total 450 / 2550 650 / 650 Balance 90 / -1460 0 / 0 780 / 780 Weight last 48 hrs Weight 102.33 kg Weight 102.7 kg Physical Exam 2 Narrative: Accompanied by his Const: COMMON NORMALS: patient oriented x3 and alert GENERAL APPEARANCE: c ooperative ORIENTATION/CONSCIOUSNESS: Yes awake HENMT: COMMON NORMALS: oropharynx normal Neck/C-Spine: COMMON NORMALS: no JVD Resp: COMMON NORMALS: normal respiratory effort and clear to auscultation bilaterally AUSCULTATION: clear to auscultation bilaterally Cardio: COMMON NORMALS: no JVD, regular rhythm, S1 normal heart sound present, S2 normal heart sound present and No murmurs present (Cardio) RHYTHM: regular rhythm HEART SOUNDS: S1 normal heart sound present and S2 normal heart sound present GI: COMMON NORMALS: Normal to inspection, nondistended, normoactive bowel sounds present, Soft to palpation and non-tender PALPATION: Yes Soft to palpation OTHER: Right lower abdomen urostomy with surrounding herniation, soft, nontender, without any erythema, urostomy appears pink and perfused without any signs of ischemia. Amount of clear urine in the bag. Back/Pelvis: OTHER: Without rash, swelling, bruising or any mass. Extremity: COMMON NORMALS: no joint enlargement and no pedal edema N ARRATIVE EXTREMITY EXAM: Left hip pain on PROM. Without any redness or swelling. GENERAL: Yes edema (trace) OTHER: Right foot deformity with Charcot foot, unstageable ulcer with black eschar around 2-1/2 cm in diameter with surrounding bruising Neuro: COMMON NORMALS: patient oriented x3 and moves all extremities S ENSORIUM/ORIENTATION: Yes alert Skin: COMMON NORMALS: no rashes or lesions noted GENERAL SKIN EXAM: no rashes or lesions noted Data 03/10/25 04:49 03/10/25 06:02 Micro: Microbiology 03/06/25 09:00 Gram Stain - Final Sputum - Expectorated Sputum Sputum Culture - Final Lea albicans A&P Assessment and plan 1. Type 2 diabetes mellitus with other specified complication, unspecified whether senior care insulin use: 2. Charcot joint of right foot: 3. Non-pressure chronic ulcer of other part of right foot with fat layer exposed: Plan: Severe Sepsis Acute metabolic Encephalopathy, resolved. CAP Bacteremia Right foot MRI could not be obtained due to difficulties with the machine. Study deferred. CT foot was obtained by ID. Noted significant phlegmonous fat stranding and appears to be chronic wound complex fluid along the area measuring 21 x 1.2 cm. Complex area of phlegmonous change and superinfected collection is suspected. Extensive destructive changes. With soft tissue findings osteomyelitis superimposed on chronic arthropathy not excluded. Updated podiatry to reassess tomorrow. He is also complaining of left hip. No redness or swelling, warmth at the joint. Does have pain on PROM. Reports pain has been worsening. Started after falling on his knee several days prior to admit. Will image with CT. GWEN reviewed cardiology note, unremarkable. Trial of Zosyn today per discussion with ID. Monitor for risk of reaction has tolerated vancomycin so far. Post-DC planning. Plans for rehabilitation at [facility] with IV antibiotics. Discussed with nursing, trimming caser. Concern for possible endocarditis enterococcal bacteremia 3/4 bottles but also 1/4 bottles MSSA. Source unclear. Repeat blood culture reviewed, so far negative. Planned prolonged antibiotic course at correction, orders have been provided for case management, arrangements underway. Left hip pain: Endorses pain, present on PROM, standing. Started after fall days ago. CT hip Hypoxemia Resolving. Weaning down to room air. Coverage for possible pneumonia as above, previously with productive cough, recurrent fever. Transition to p.o. diuretic for CHF. Monitor blood pressure. Monitor for risk of electrolyte abnormality, worsening JULY. CT chest reviewed, unremarkable. Reviewed CBC, without leukocytosis. Discussed with nursing, trimming caser. AMS resolved. Likely acute metabolic encephalopathy. Complicated UTI Received treatment including with meropenem. Repeat culture cleared out. CT abdomen pelvis, noted perinephric stranding. Discussed with him findings of pyelonephritis. With recurrent UTI discussed with him would benefit from setting up follow-up with urology for reassessment of ileal conduit, with noted herniation, question of whether it may be contributing to his recurrent UTIs, although otherwise has been asymptomatic from it. He verbalized that he plans to do so. With lower back pain. 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 No evidence of incarceration. - Hx of bladder cancer w/ urostomy CHF Additional Lasix today. Reviewed CMP. PO Lasix. Acute diastolic CHF, prior echo reviewed, EF 60%. Grade 2 diastolic dysfunction. No RWMA. Difficult to gauge volume status although has had congestive changes on chest x-ray. Persistent hypoxia. May need home O2 - 03/02: CXR: Reviewed and results as follows: Cardiomegaly with central venous congestion and interstitial edema. Early congestive failure. - Dly wt, strict I&Os, cardiac diet - Titrate O2 as indicated - Monitor CBC, CMP, Mag dly. Hypomagnesemia Has been replaced. Recheck level. CAD Dyslipidemia - Continue home medications aspirin 81 mg PO dly, atorvastatin 40 mg PO dly, clopidogrel 75 mg PO Dly - Cardiac diet HTN -With soft blood pressure hold losartan 12.5mg PO dly DM2 CKD stage 2 Diabetic neuropathy - A1c ordered, pending. - Blood glucose monitoring, ACHS - Low regimen sliding scale - Hypoglycemic protocol - Cardiac Carb consistent diet - Continue home medication gabapentin 600 mg PO Q8H. With soft blood pressure reduced to 300. PETER - Does not wear cpap at home - Continuous pulse ox GERD - On home famotidine 40mg PO dly Non-pressure chronic ulcer right foot - Chronic wounds on his leg and feet, healing pretty well at this point. - Follows with Dr. Day outpt. Appreciate consultation. - Will need reassessment given imaging findings above. Hx of bladder cancer w/ urostomy placement CODE STATUS: Full Code VTE prophylaxis: Lovenox PDMP PDMP Reviewed: Not Reviewed Attestations 2 Medical Necessity Statement*: Continue admission for assessment management of MSSA bacteremia, right foot phlegmon. CHF, JULY. and High MDM includes amount and/or complexity of data reviewed/ordered [ previous or external records, resulted lab(s)/test(s), ordered lab(s)/test(s) and other healthcare professional discussion] and described risk of complication, morbidity or mortality of management as documented Diagnoses Type 2 diabetes mellitus with other specified complication, unspecified whether intermodal customer service insulin use E11.69 Diabetes mellitus complication status: with other specified complication Diabetes mellitus senior care insulin use: unspecified intermodal customer service insulin use status Charcot joint of right foot M14.671 Non-pressure chronic ulcer of other part of right foot with fat layer exposed L97.512
--- NOTE | 2025-03-10 19:07 | CTR_ITS ---
PROCEDURE INFORMATION: Exam: CT Left Lower Extremity Without Contrast, Hip Exam date and time: 03/10/2025 10:52 PM Age: 74 years old Clinical indication: Prior surgery; Surgery date: 6+ months; Surgery type: Urostomy; C/O left hip pain. No injury. History of bladder cancer. TECHNIQUE: Imaging protocol: CT of the left lower extremity without contrast was performed. Exam focused on the hip. Radiation optimization: All CT scans at this facility use at least one of these dose optimization techniques: automated exposure control; mA and/or kV adjustment per patient size (includes targeted exams where dose is matched to clinical indication); or iterative reconstruction. COMPARISON: CT abdomen pelvis wo con [id number] 03/03/2025 2:00 PM RADIATION DOSE METRICS: Total DLP (mGy-cm): 452 FINDINGS: Bones/joints: No acute fracture or dislocation. Diffuse osseous demineralization. Soft tissues: No CT evidence of tendon avulsion injury. CT/CT hip LT wo con* [id number] IMPRESSION: No acute fracture or dislocation.
[2025-03-10] MEDS: insulin glargine 100 units/1 mL 65 UNIT SUBCUT (20:33)
[2025-03-11] VITALS (9 sets, daily range): BP systolic 97–139; BP diastolic 58–85; PULSE 67–84; RESP 13–24; TEMP 36.4–37.1; O2SAT 92–95
[2025-03-11] MEDS: oxyCODONE 5 mg IR Tab/Cap PO ×2 (04:25→12:29)
[2025-03-11 04:26] LABS: Hematocrit 36.0 % (37-53); Hemoglobin 11.90 g/dL (11.27-16.99); Mean Corpuscular HGB Conc 33.1 g/dL (30-55); Mean Corpuscular Hemoglobin 29.0 pg (27-33); Mean Corpuscular Volume 87.8 fl (82-101); Nucleated Red Blood Cells % 0 %; Platelet Count 224 10^3/cmm (157-399); Red Blood Count 4.10 10^6/uL (3.85-5.65); White Blood Count 9.27 10^3/uL (3.29-11.43)
[2025-03-11] MEDS: piperacillin-tazobactam 3.375 GM in sodium chloride 0.9% (plus) 50 ML IV ×2 (04:31→20:12)
[2025-03-11 04:57] LABS: Alanine Aminotransferase 37 U/L (0-41); Albumin Level 3.1 g/dL (3.5-5.2); Alkaline Phosphatase 108 U/L (40-130); Anion Gap 15.1 (5-19); Aspartate Amino Transferase 35 U/L (0-40); Blood Urea Nitrogen 29 mg/dL (8-23); Calcium 8.2 mg/dL (8.5-10.5); Carbon Dioxide 25 mmol/L (22-29); Chloride 98 mmol/L (98-107); Globulin 3.1 g/dL (1.3-4.6); Glucose 59 mg/dL (65-115); Osmolality Calculated 282 mOsm/kg (285-295); Potassium 4.1 mmol/L (3.5-5.1); Sodium 134 mmol/L (136-145); Total Protein 6.2 g/dL (6.6-8.7)
[2025-03-11 05:27] LABS: Magnesium 2.0 mg/dL (1.7-2.3)
--- NOTE | 2025-03-11 08:20 | PM.PN ---
Subjective Subjective: Assessed via telehealth ID progress note Tmax 100.[address] foot notes potential abscess and phlegmon Medications: Reviewed: Yes Medication Review Details: Abx history : Zosyn 03/09 Meropenem 03/05- 03/09 ; 03/02 x 1 Linezolid 03/04- current ; 03/02 x 1 levofloxacin 03/02-03/04 Vitals/I&O/Wt Last Vital Signs Temp 98.8 F 03/11/25 07:28 Pulse 67 03/11/25 07:28 Resp 22 H 03/11/25 07:28 BP 97/58 03/11/25 07:28 Pulse Ox 94 03/11/25 07:28 O2 Del Method Nasal Cannula 03/11/25 04:00 O2 Flow Rate 2 03/11/25 04:00 03/10/25 03/11/25 03/11/25 22:59 06:59 14:59 Intake Total 780 / 1430 800 / 2230 Output Total 500 / 1150 500 / 1650 Balance 280 / 280 300 / 580 Weight last 48 hrs Weight 99.5 kg Weight 102.33 kg Physical Exam Narrative: Assessed via telehealth General: No acute distress, AO x3, laying in bed ext: Wound over plantar aspect of foot appears to be without discharge, improved over previous exam Data 03/12/25 02:13 03/12/25 02:13 Other Labs: CT/CT foot RT wo con* [id number] IMPRESSION: 1. Along the plantar forefoot at the level of the TMT joints there is significant phlegmonous fat stranding and what appears to be a chronic wound (series 13, images 42 through 31). No tracking deep soft tissue gas. Complex fluid along this areas suspected measuring 21 x 1.2 cm (series 12, image 47) in the plantar soft tissues. A complex area of phlegmonous change and superinfected collection is suspected. 2. Extensive destructive changes throughout the forefoot and midfoot with changes that can be associated with synovial arthropathy. Given the soft tissue findings osteomyelitis superimposed upon chronic Charcot atrophy can not be excluded. 3. If necessary an MRI with and without contrast could be obtained to further assess. 4. There are changes that can be associated with plantar fasciitis. A&P Assessment and plan 1. Cellulitis of right foot: 2. MSSA bacteremia: 3. Bacteremia due to Enterococcus: 4. History of ileal conduit: 5. Urine culture positive: 6. Foot abscess: Plan: 74M with known ileal conduit x 30 years, chronic urinary colonization with Enterobacteraciae, currently admitted to the hospital with c/o fever and AMS. During course of evaluation found to have positive urine culture with Serratia sp and Providentia. Thought to have a UTI upon presentation, receoved Levofloxacin 03/02-03/04, transitioned to meropenem thereafter. No hydronephrosis noted on abdominal imaging More significantly, blood cx positive for MSSA 03/02 and Enterococcus fecalis on 03/05. Started on Linezolid thereafter. Neither of the blood organisms isolated from urine. Stoma site appears to be healthy. No significant change in urine output from stoma. NO recent blockages or significant mucus. Noted to have ulceration over plantar aspect of the foot with surrouding erythema and mild fluctuance, concerned about underlying osteomyelitis, cellulitis. 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 Continues to have low grade fever at this time, given + blood cx for highly concerning organisms with MSSA and Enterococcus, with recent h/o osteomyelitis, recommend GWEN to evaluate for endocarditis and MRI foot to assess for osteomeyelitis and any underlying abscess. D/C linezolid as bacteriostatic, would not be ideal choice for BSI that needs to be treated with prolonged abx course. Change to iv vancomycin interesting prior skin cx have revealed MRSA on multiple occasions, however current blood cx with MSSA. Chart notes allergy to penicillin, patient reports hives several years ago. Review of chart shows he has received iv ceftriaxone in 2019 without any issues and currently tolerating meropenem. Plan to d/c meropenem in the morning and proceed with test dose of Zosyn in am, followed by full dose if does not develop any allergic reaction. Will follow. 03/09/25: GWEN negative for vegetations. Blood cx from 03/07 thus far without any growth. Respiratory cx with Lea , from orpharyngeal thrush. Add Nystatin. MRI foot unable to be completed as patient unable to lay still. TO be attemoted again this evening. Fever curve is improving. Tolerated test dose and full dose of Zosyn this afternoon. D/c Meropenem, change to Zosyn renally dosed. For today, continue iv Zosyn, monitor for any adverse reactions. Continue iv vancomycin. Patient with planned transition to SNF, disposition planning is ongoing. 03/10/25 : Chart Reviewed. Tolerated Zosyn since yesterday without any adverse events. Fever curve improving. T MAx 99F last 24 hrs. MRI foot unable to be completed as patient could not lay still Changed to CT right foot w/o contrast PICC line was placed 03/07. Blood cx clear as of 03/07/25 Currently on Zosyn and iv vancomycin. Considered discharge on Iv Ampicillin + cefazolin vs Ceftriaxone for Enterococcus fecalis and MSSA bacteremia, however q4h administration will likely not be feasible at [facility]. Will plan discharge on iv vancomcyin 1g iv every 12 hrs for 4 weeks (03/07-03/28) with weekly CBC, Creat, LFT,Vanc trough Complete short course of abx for gram negatives isolated on urine cx 03/05-03/11 (meropenem--> Zosyn), favored more likely colonization. Will follow with CT foot results 03/11/25 : CT foot showing several chronic destructive changes and chronic plantar ulceration. however concerned about the more acute complex fluid collection and phlegmonous changes noted on CT foot. Recommend podiatry evaluation to assess for debridement since patient continues to have low grade fever and to obtain cultures from debridement to tailor abx therapy further.Continue Zosyn, day 7 today. Continue vancomycin until 03/28. Will follow PDMP PDMP Reviewed: Not Reviewed Attestations Medical Necessity Statement*: per admitting note Coding Level of Care Code Acute Code for [facility] Fwd Diagnoses Cellulitis of right foot L03.115 MSSA bacteremia R78.81; B95.61 Bacteremia due to Enterococcus R78.81; B95.2 History of ileal conduit Z98.890 Urine culture positive R82.79 Foot abscess L02.619
[2025-03-11] MEDS: HYDROmorphone 0.5 MG/0.5 ML INJ 0.4 MG IVP ×2 (09:05→16:34)
--- NOTE | 2025-03-11 09:25 | XRR_ITS ---
PROCEDURE INFORMATION: Exam: XR Right Foot Exam date and time: 03/11/2025 11:14 AM Age: 74 years old Clinical indication: Pain; Foot; Right; Additional info: Ulcer/wound to bottom of RT foot; RT charcot foot TECHNIQUE: Imaging protocol: Radiologic exam of the right foot. Views: 3 or more views. COMPARISON: 1. CR XR foot RT min 3V* [id number] 09/06/2024 7:[address] foot RT wo con* [id number] 03/10/2025 8:36 AM FINDINGS: Bones/joints: Bones are demineralized. Extensive arthritic changes are present throughout the midfoot. Lateral view demonstrates pes planus with flattening of the plantar arch. Extensive erosive and destructive changes are again seen throughout the midfoot compatible with Charcot joint. This was better appreciated on recent CT scan of the foot. Evaluation for osteomyelitis is significantly limited on this examination. Areas of lucency along the plantar aspect of the cuboid may correspond to changes of osteomyelitis. Metatarsals appear intact. Toes appear intact. Mild arthritic changes present at the 1st metatarsophalangeal joint. Distal aspect of the tibia and fibula are intact. Small plantar calcaneal spur. Soft tissues: Small focus of gas is present along the plantar aspect of the lateral midfoot compatible with skin ulceration. No opaque foreign body. XR/XR foot RT min 3V* [id number] IMPRESSION: 1. Extensive erosive and destructive changes are present throughout the midfoot. There is malalignment of the tarsal bones with resultant pes planus. Area of lucency along the plantar aspect of the cuboid may correspond to an area of osteomyelitis. Findings do appear similar as compared to prior plain film radiographs of the right foot performed September 06, 2024. Findings were better seen on recent CT scan of the foot. Please see report from recent CT scan of the right foot performed March 10, 2025 for additional information. MRI of the foot should be considered for further evaluation. 2. Soft tissue fullness is present along the plantar soft tissues. Small area of subcutaneous gas is present within the plantar aspect of the lateral midfoot compatible with underlying wound and skin ulceration .
[2025-03-11] MEDS: nystatin 100,000 unit/mL UDC 5 mL 500000 UNIT PO ×3 (12:13→22:13)
[2025-03-11] MEDS: piperacillin-tazobactam 3.375 GM in sodium chloride 0.9% (plus) 50 ML 2.5 GM IV (12:15)
[2025-03-11 13:20] LABS: Coronavirus 229E,HKU1,NL63,OC4 Not Detected (NOT DETECT); Parainfluenza Virus Type 1 Not Detected (NOT DETECT); Parainfluenza Virus Type 2 Not Detected (NOT DETECT); Parainfluenza Virus Type 3 Not Detected (NOT DETECT); Parainfluenza Virus Type 4 Not Detected (NOT DETECT); SARS-COV-2 Not Detected (NOT DETECT)
--- NOTE | 2025-03-11 14:08 | P.PN_ITS ---
Subjective 2 Subjective: Patient seen bedside this a.m. Unexplained fevers. Vitals/I&O/Wt Last Vital Signs Temp 98.8 F 03/11/25 07:28 Pulse 78 03/11/25 11:48 Resp 20 H 03/11/25 12:29 BP 120/66 03/11/25 11:48 Pulse Ox 95 03/11/25 12:29 O2 Del Method Room Air 03/11/25 09:30 O2 Flow Rate 2 03/11/25 04:00 03/10/25 03/11/25 03/11/25 22:59 06:59 14:59 Intake Total 780 / 1430 800 / 2230 770 / 770 Output Total 500 / 1150 500 / 1650 Balance 280 / 280 300 / 580 770 / 770 Weight last 48 hrs Weight 219 lb 5.759 oz Weight 225 lb 9.6 oz Physical Exam 2 Narrative: GENERAL: Patient is alert and oriented ?3 and in no acute distress. The following is a focused bilateral lower extremity exam. VASCULAR: Dorsalis pedis palpable bilaterally. Posterior tibial arteries palpable. Capillary refill time less than 3 seconds to the distal hallux bilaterally. Calf is supple and nontender proximally and distally. Mild edema to the right foot consistent with postoperative course. NEUROLOGICAL: Absent protective sensation bilateral foot. DERMATOLOGICAL: Grade 2 wound at plymouther-bottom foot deformity of the right plantar midfoot measures 1.0, cm x 1.0 cm cm x 0.2 cm with granular base and epithelializing margin. Does not probe to bone, tunnel or undermine. Previously documented wound to the left great toe are epithelialized. MUSCULOSKELETAL: Rocker-bottom foot deformity to the right foot secondary to Charcot. Decreased dorsiflexion left ankle graded 4/5 able to dorsiflex against gravity and light resistance, does not have full strength with dorsiflexion at the left ankle. No crepitus with soft tissue palpation right plantar foot. Data 03/11/25 03:53 03/11/25 03:53 Other data: CT/CT foot RT wo con* [id number] IMPRESSION: 1. Along the plantar forefoot at the level of the TMT joints there is significant phlegmonous fat stranding and what appears to be a chronic wound (series 13, images 42 through 31). No tracking deep soft tissue gas. Complex fluid along this areas suspected measuring 21 x 1.2 cm (series 12, image 47) in the plantar soft tissues. A complex area of phlegmonous change and superinfected collection is suspected. 2. Extensive destructive changes throughout the forefoot and midfoot with changes that can be associated with synovial arthropathy. Given the soft tissue findings osteomyelitis superimposed upon chronic Charcot atrophy can not be excluded. 3. If necessary an MRI with and without contrast could be obtained to further assess. 4. There are changes that can be associated with plantar fasciitis. Dictated By: Jesse Walker MD Signed By: Jesse Walker MD Signed Date/Time: 03/10/2513 DD/ 0836 A&P Assessment and plan 1. Type 2 diabetes mellitus with other specified complication, unspecified whether lacquer polisher insulin use: 2. Charcot joint of right foot: 3. Non-pressure chronic ulcer of other part of right foot with fat layer exposed: Plan: Patient has unexplained fevers and bacteremia, trying identify source, cannot rule out foot as a source. Elevated ESR at 83 03/11/2025. CT concerning for phlegmon deep to the right plantar foot wound with rocker-bottom deformity underlying Charcot cannot rule out osteomyelitis. The wound is stable appearing and has continued to measure smaller patient would benefit from bone culture to micro, surgical intervention would also be twofold with planing of plantar surface of the cuboid for surgical offloading of the wound. Scheduled for right foot incision of bone cortex 03/13/2025 7:00 AM. N.p.o. at midnight Wednesday night Nonweightbearing right foot Surgical debridement scheduled right foot 03/13/2025 7:00 AM per operating room availability. PDMP PDMP Reviewed: Not Reviewed Attestations 2 Medical Necessity Statement*: Requires continued IV antibiotics and surgical intervention right foot. Coding Level of Care Code Acute Code for [facility] Fwd Diagnoses Type 2 diabetes mellitus with other specified complication, unspecified whether lacquer polisher insulin use E11.69 Diabetes mellitus complication status: with other specified complication Diabetes mellitus penitentiary insulin use: unspecified penitentiary insulin use status Charcot joint of right foot M14.671 Non-pressure chronic ulcer of other part of right foot with fat layer exposed L97.512
--- NOTE | 2025-03-11 17:15 | P.PN_ITS ---
Subjective 2 Subjective: no new c/o Medications: Reviewed: Yes Vitals/I&O/Wt Last Vital Signs Temp 98.8 F 03/11/25 07:28 Pulse 84 03/11/25 15:30 Resp 19 H 03/11/25 15:30 BP 139/85 03/11/25 15:30 Pulse Ox 95 03/11/25 15:30 O2 Del Method Room Air 03/11/25 09:30 O2 Flow Rate 2 03/11/25 04:00 03/11/25 03/11/25 03/11/25 06:59 14:59 22:59 Intake Total 800 / 2230 770 / 770 Output Total 500 / 1650 1000 / 1000 350 / 1350 Balance 300 / 580 -230 / -230 -350 / -580 Weight last 48 hrs Weight 99.5 kg Weight 102.33 kg Physical Exam 2 Narrative: Vital signs noted. HEENT normocephalic atraumatic Neck is supple Lungs have crackles and rhonchi. Heart regular positive S1-S2. Abdomen is soft positive bowel sounds positive ostomy with hernia around it. Extremities do not have edema Poor distal pulses. Neuro awake alert oriented x 3 Data 03/11/25 03:53 03/11/25 03:53 A&P Assessment and plan 1. Acute kidney injury: 74-year-old man underlying diabetes with neuropathy, peripheral vascular disease, heart failure preserved EF, CAD, hyperlipidemia, obstructive sleep apnea. Patient is here with infection presumed pneumonia versus UTI . 1. Acute on chronic kidney disease stage III:Creatinine baseline is in the range of 1.2-1.4, creatinine currently is in the 1.7/1.8 range and stable. UA 2+ protein and trace blood, also consistent with UTI showing 4+ bacteria and positive nitrates. Etiology of current JULY likely ATN from hypotension. Creatinine is currently stable, continue to monitor. CT scan with normal-sized kidneys. -, started PO lasix 40 mg daily avoid nephrotoxic agents and IV contrast studies. 2. Hyponatremia , sodium 134 , monitor 3. Sepsis in the setting of complicated UTI and pneumonia, staph aureus and enterococcus bacteremia , plan for GWEN 4. Metabolic encephalopathy, improving Patient was seen and examined with aid of a nurse using A/V equipment. The patient consented to telehealth Plan: See above. PDMP PDMP Reviewed: Not Reviewed Attestations 2 Medical Necessity Statement*: per debbie Coding Level of Care Code Acute Code for [facility] Fwd Diagnoses Acute kidney injury N17.9
--- NOTE | 2025-03-11 19:27 | P.PN_ITS ---
Subjective 2 Subjective: Patient states that he is getting up and to the side of the bed, declines any pain. Has persistent cough, he characterizes as bronchitis. Requesting cough suppressant. Discussed with ID and podiatry today. Plan is for surgical debridement of the right lower extremity, discontinue Zosyn will be discharged to SNF with vancomycin upon discharge after right foot debridement on 03/13/2025. Vitals/I&O/Wt Last Vital Signs Temp 98.8 F 03/11/25 07:28 Pulse 84 03/11/25 15:30 Resp 19 H 03/11/25 15:30 BP 139/85 03/11/25 15:30 Pulse Ox 95 03/11/25 15:30 O2 Del Method Room Air 03/11/25 09:30 O2 Flow Rate 2 03/11/25 04:00 03/11/25 03/11/25 03/11/25 06:59 14:59 22:59 Intake Total 800 / 2230 770 / 770 730 / 1500 Output Total 500 / 1650 1000 / 1000 350 / 1350 Balance 300 / 580 -230 / -230 380 / 150 Weight last 48 hrs Weight 99.5 kg Weight 102.33 kg Physical Exam 2 Narrative: Accompanied by his Const: COMMON NORMALS: patient oriented x3 and alert GENERAL APPEARANCE: c ooperative ORIENTATION/CONSCIOUSNESS: Yes awake HENMT: COMMON NORMALS: oropharynx normal Neck/C-Spine: COMMON NORMALS: no JVD Resp: COMMON NORMALS: normal respiratory effort and clear to auscultation bilaterally AUSCULTATION: clear to auscultation bilaterally Cardio: COMMON NORMALS: no JVD, regular rhythm, S1 normal heart sound present, S2 normal heart sound present and No murmurs present (Cardio) RHYTHM: regular rhythm HEART SOUNDS: S1 normal heart sound present and S2 normal heart sound present GI: COMMON NORMALS: Normal to inspection, nondistended, normoactive bowel sounds present, Soft to palpation and non-tender PALPATION: Yes Soft to palpation OTHER: Right lower abdomen urostomy with surrounding herniation, soft, nontender, without any erythema, urostomy appears pink and perfused without any signs of ischemia. Amount of clear urine in the bag. Back/Pelvis: OTHER: Without rash, swelling, bruising or any mass. Extremity: COMMON NORMALS: no joint enlargement and no pedal edema N ARRATIVE EXTREMITY EXAM: Left hip pain on PROM. Without any redness or swelling. GENERAL: Yes edema (trace) OTHER: Right foot deformity with Charcot foot, unstageable ulcer with black eschar around 2-1/2 cm in diameter with surrounding bruising Neuro: COMMON NORMALS: patient oriented x3 and moves all extremities S ENSORIUM/ORIENTATION: Yes alert Skin: COMMON NORMALS: no rashes or lesions noted GENERAL SKIN EXAM: no rashes or lesions noted Data 03/11/25 03:53 03/11/25 03:53 A&P Assessment and plan 1. Type 2 diabetes mellitus with other specified complication, unspecified whether joint terminal attack controller insulin use: 2. Charcot joint of right foot: 3. Non-pressure chronic ulcer of other part of right foot with fat layer exposed: Plan: Severe Sepsis Acute metabolic Encephalopathy, resolved. CAP Bacteremia Right foot MRI could not be obtained due to difficulties with the machine. Study deferred. CT foot was obtained by ID. Noted significant phlegmonous fat stranding and appears to be chronic wound complex fluid along the area measuring 21 x 1.2 cm. Complex area of phlegmonous change and superinfected collection is suspected. Extensive destructive changes. With soft tissue findings osteomyelitis superimposed on chronic arthropathy not excluded. Updated podiatry to reassess tomorrow. He is also complaining of left hip. No redness or swelling, warmth at the joint. Does have pain on PROM. Reports pain has been worsening. Started after falling on his knee several days prior to admit. Will image with CT. GWEN reviewed cardiology note, unremarkable. Trial of Zosyn today per discussion with ID. Monitor for risk of reaction has tolerated vancomycin so far. Post-DC planning. Plans for rehabilitation at [facility] with IV antibiotics. Discussed with nursing, gearcase assembler. Concern for possible endocarditis enterococcal bacteremia 3/4 bottles but also 1/4 bottles MSSA. Source unclear. Repeat blood culture reviewed, so far negative. Planned prolonged antibiotic course at halfway, orders have been provided for case management, arrangements underway. Left hip pain: Endorses pain, present on PROM, standing. Started after fall days ago. CT hip shows no fractures or dislocation. Hypoxemia Resolving. Weaning down to room air. Coverage for possible pneumonia as above, previously with productive cough, recurrent fever. Transition to p.o. diuretic for CHF. Monitor blood pressure. Monitor for risk of electrolyte abnormality, worsening JULY. CT chest reviewed, unremarkable. Reviewed CBC, without leukocytosis. Discussed with nursing, gearcase assembler. AMS resolved. Likely acute metabolic encephalopathy. Complicated UTI Received treatment including with meropenem. Repeat culture cleared out. CT abdomen pelvis, noted perinephric stranding. Discussed with him findings of pyelonephritis. With recurrent UTI discussed with him would benefit from setting up follow-up with urology for reassessment of ileal conduit, with noted herniation, question of whether it may be contributing to his recurrent UTIs, although otherwise has been asymptomatic from it. He verbalized that he plans to do so. With lower back pain. 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 No evidence of incarceration. - Hx of bladder cancer w/ urostomy CHF Additional Lasix today. Reviewed CMP. PO Lasix. Acute diastolic CHF, prior echo reviewed, EF 60%. Grade 2 diastolic dysfunction. No RWMA. Difficult to gauge volume status although has had congestive changes on chest x-ray. Persistent hypoxia. May need home O2 - 03/02: CXR: Reviewed and results as follows: Cardiomegaly with central venous congestion and interstitial edema. Early congestive failure. - Dly wt, strict I&Os, cardiac diet - Titrate O2 as indicated - Monitor CBC, CMP, Mag dly. Hypomagnesemia Has been replaced. Recheck level. CAD Dyslipidemia - Continue home medications aspirin 81 mg PO dly, atorvastatin 40 mg PO dly, clopidogrel 75 mg PO Dly - Cardiac diet HTN -With soft blood pressure hold losartan 12.5mg PO dly DM2 CKD stage 2 Diabetic neuropathy - A1c ordered, pending. - Blood glucose monitoring, ACHS - Low regimen sliding scale - Hypoglycemic protocol - Cardiac Carb consistent diet - Continue home medication gabapentin 600 mg PO Q8H. With soft blood pressure reduced to 300. PETER - Does not wear cpap at home - Continuous pulse ox GERD - On home famotidine 40mg PO dly Non-pressure chronic ulcer right foot - Chronic wounds on his leg and feet, healing pretty well at this point. - Follows with Dr. Day outpt. Appreciate consultation. - Will need reassessment given imaging findings above. ?Plan for Surgical debridement planned for 03/13/2025, given the soft tissue findings per podiatry, osteomyelitis cannot be excluded on chronic Charcot atrophy. Hx of bladder cancer w/ urostomy placement Persistent cough ? Cough suppressant, trial of p.o. codeine CODE STATUS: Full Code VTE prophylaxis: Lovenox PDMP PDMP Reviewed: Not Reviewed Attestations 2 Medical Necessity Statement*: Continue admission for assessment of MSSA bacteremia, possible right foot osteomyelitis with surgical debridement required during admission. Coding Level of Care Code 25806 Diagnoses Type 2 diabetes mellitus with other specified complication, unspecified whether joint terminal attack controller insulin use E11.69 Diabetes mellitus complication status: with other specified complication Diabetes mellitus joint terminal attack controller insulin use: unspecified [facility] insulin use status Charcot joint of right foot M14.671 Non-pressure chronic ulcer of other part of right foot with fat layer exposed L97.512
[2025-03-11] MEDS: insulin glargine 100 units/1 mL 65 UNIT SUBCUT (21:18)
[2025-03-12] VITALS (12 sets, daily range): BP systolic 102–137; BP diastolic 55–79; PULSE 64–96; RESP 15–28; TEMP 36.8–36.9; O2SAT 92–97
[2025-03-12] MEDS: oxyCODONE 5 mg IR Tab/Cap PO ×5 (00:27→20:30)
[2025-03-12 03:33] LABS: Hematocrit 36.9 % (37-53); Hemoglobin 12.30 g/dL (11.27-16.99); Mean Corpuscular HGB Conc 33.3 g/dL (30-55); Mean Corpuscular Hemoglobin 28.8 pg (27-33); Mean Corpuscular Volume 86.4 fl (82-101); Nucleated Red Blood Cells % 0 %; Platelet Count 209 10^3/cmm (157-399); Red Blood Count 4.27 10^6/uL (3.85-5.65); White Blood Count 6.21 10^3/uL (3.29-11.43)
[2025-03-12 03:58] LABS: Magnesium 2.0 mg/dL (1.7-2.3)
[2025-03-12 04:04] LABS: Alanine Aminotransferase 34 U/L (0-41); Albumin Level 3.1 g/dL (3.5-5.2); Alkaline Phosphatase 104 U/L (40-130); Anion Gap 16.5 (5-19); Aspartate Amino Transferase 27 U/L (0-40); Blood Urea Nitrogen 32 mg/dL (8-23); Calcium 8.3 mg/dL (8.5-10.5); Carbon Dioxide 24 mmol/L (22-29); Chloride 97 mmol/L (98-107); Globulin 3.1 g/dL (1.3-4.6); Glucose 121 mg/dL (65-115); Osmolality Calculated 284 mOsm/kg (285-295); Potassium 4.5 mmol/L (3.5-5.1); Sodium 133 mmol/L (136-145); Thyroid Stimulating Hormone 1.07 uIU/mL (0.27-4.20); Total Protein 6.2 g/dL (6.6-8.7)
[2025-03-12] MEDS: piperacillin-tazobactam 3.375 GM in sodium chloride 0.9% (plus) 50 ML IV (04:36)
[2025-03-12] MEDS: nystatin 100,000 unit/mL UDC 5 mL 500000 UNIT PO ×3 (05:17→17:48)
--- NOTE | 2025-03-12 05:50 | PM.MISC ---
Miscellaneous Note Purpose of Documentation: Afberile last 24 hrs now, no acute interim events per chart review. Last day ZOsyn today. Continue iv vancomycin.
--- NOTE | 2025-03-12 11:36 | PC.SOCIAL ---
IMM Update pg 2 of IMM updated and reviewed w/ patient. Copy provided and copy dated, initialed and placed in chart.
--- NOTE | 2025-03-12 12:47 | P.PN_ITS ---
Subjective 2 Subjective: Patient seen bedside this a.m. Anticipates surgical debridement right foot tomorrow. Vitals/I&O/Wt Last Vital Signs Temp 98.3 F 03/12/25 07:36 Pulse 81 03/12/25 12:00 Resp 23 H 03/12/25 12:00 BP 133/63 03/12/25 12:00 Pulse Ox 97 03/12/25 12:00 O2 Del Method Nasal Cannula 03/11/25 20:00 O2 Flow Rate 3 03/11/25 20:00 03/11/25 03/12/25 03/12/25 22:59 06:59 14:59 Intake Total 749.875 / 1519.875 300 / 1819.875 410 / 410 Output Total 350 / 1350 650 / 2000 Balance 399.875 / 169.875 -350 / -180.125 410 / 410 Weight last 48 hrs Weight 220 lb 7.396 oz Weight 219 lb 5.759 oz Physical Exam 2 Narrative: GENERAL: Patient is alert and oriented ?3 and in no acute distress. The following is a focused bilateral lower extremity exam. VASCULAR: Dorsalis pedis palpable bilaterally. Posterior tibial arteries palpable. Capillary refill time less than 3 seconds to the distal hallux bilaterally. Calf is supple and nontender proximally and distally. Mild edema to the right foot consistent with postoperative course. NEUROLOGICAL: Absent protective sensation bilateral foot. DERMATOLOGICAL: Grade 2 wound at rocker-bottom foot deformity of the right plantar midfoot measures 1.0, cm x 1.0 cm cm x 0.2 cm with granular base and epithelializing margin. Does not probe to bone, tunnel or undermine. Previously documented wound to the left great toe are epithelialized. MUSCULOSKELETAL: Rocker-bottom foot deformity to the right foot secondary to Charcot. Decreased dorsiflexion left ankle graded 4/5 able to dorsiflex against gravity and light resistance, does not have full strength with dorsiflexion at the left ankle. No crepitus with soft tissue palpation right plantar foot. CARDIOVASCULAR: S1, S2, normal rate, normal rhythm. Dorsalis pedis and posterior tibial arteries palpable. LUNGS: Clear to auscltation, no use of acessory muscles, no crackles or wheezes. Data 03/13/25 03:03 03/13/25 03:03 A&P Assessment and plan 1. Type 2 diabetes mellitus with other specified complication, unspecified whether jail insulin use: 2. Charcot joint of right foot: 3. Non-pressure chronic ulcer of other part of right foot with fat layer exposed: Plan: Patient has unexplained fevers and bacteremia, trying identify source, cannot rule out foot as a source. Elevated ESR at 83 03/11/2025. CT concerning for phlegmon deep to the right plantar foot wound with rocker-bottom deformity underlying Charcot cannot rule out osteomyelitis. The wound is stable appearing and has continued to measure smaller patient would benefit from bone culture to micro, surgical intervention would also be twofold with planing of plantar surface of the cuboid for surgical offloading of the wound. Scheduled for right foot incision of bone cortex 03/13/2025 7:00 AM. N.p.o. at midnight Nonweightbearing right foot Surgical debridement scheduled right foot tomorrow 03/13/2025 7:00 AM PDMP PDMP Reviewed: Not Reviewed Attestations 2 Medical Necessity Statement*: Deferred to primary Coding Level of Care Code Acute Code for Chg Fwd Diagnoses Type 2 diabetes mellitus with other specified complication, unspecified whether jail insulin use E11.69 Diabetes mellitus complication status: with other specified complication Diabetes mellitus terminal gauger supervisor insulin use: unspecified terminal gauger supervisor insulin use status Charcot joint of right foot M14.671 Non-pressure chronic ulcer of other part of right foot with fat layer exposed L97.512
--- NOTE | 2025-03-12 19:08 | P.PN_ITS ---
Subjective 2 Subjective: no new c/o Medications: Reviewed: Yes Vitals/I&O/Wt Last Vital Signs Temp 98.4 F 03/12/25 16:00 Pulse 78 03/12/25 16:00 Resp 23 H 03/12/25 16:00 BP 136/72 03/12/25 16:00 Pulse Ox 96 03/12/25 16:00 O2 Del Method Room Air 03/12/25 13:40 O2 Flow Rate 3 03/11/25 20:00 03/12/25 03/12/25 03/12/25 06:59 14:59 22:59 Intake Total 300 / 1819.875 670 / 670 730 / 1400 Output Total 650 / 2000 1130 / 1130 Balance -350 / -180.125 -460 / -460 730 / 270 Weight last 48 hrs Weight 100 kg Weight 99.5 kg Physical Exam 2 Narrative: Vital signs noted. HEENT normocephalic atraumatic Neck is supple Lungs have crackles and rhonchi. Heart regular positive S1-S2. Abdomen is soft positive bowel sounds positive ostomy with hernia around it. Extremities do not have edema Poor distal pulses. Neuro awake alert oriented x 3 Data 03/12/25 02:13 03/12/25 02:13 Micro: Microbiology 03/07/25 13:50 Blood Culture - Final Blood NO GROWTH AFTER 5 DAYS 03/07/25 13:45 Blood Culture - Final Blood NO GROWTH AFTER 5 DAYS A&P Assessment and plan 1. Acute kidney injury: 74-year-old man underlying diabetes with neuropathy, peripheral vascular disease, heart failure preserved EF, CAD, hyperlipidemia, obstructive sleep apnea. Patient is here with infection presumed pneumonia versus UTI . 1. Acute on chronic kidney disease stage III:Creatinine baseline is in the range of 1.2-1.4, creatinine currently is in the 1.7/1.8 range and stable. UA 2+ protein and trace blood, also consistent with UTI showing 4+ bacteria and positive nitrates. Etiology of current JULY likely ATN from hypotension. Creatinine is currently stable, continue to monitor. CT scan with normal-sized kidneys. -, started PO lasix 40 mg daily avoid nephrotoxic agents and IV contrast studies. 2. Hyponatremia , sodium 134 , monitor 3. Sepsis in the setting of complicated UTI and pneumonia, staph aureus and enterococcus bacteremia , plan for GWEN 4. Metabolic encephalopathy, improving Patient was seen and examined with aid of a nurse using A/V equipment. The patient consented to telehealth Plan: See above. PDMP PDMP Reviewed: Not Reviewed Attestations 2 Medical Necessity Statement*: per debbie Coding Level of Care Code Acute Code for Chg Fwd Diagnoses Acute kidney injury N17.9
--- NOTE | 2025-03-12 20:46 | P.PN_ITS ---
Subjective 2 Subjective: Patient remained stable, no events overnight. Electrolytes, glucose stable. Patient has no complaints. Visited by podiatry today, plan for surgery tomorrow morning. Vitals/I&O/Wt Last Vital Signs Temp 98.3 F 03/12/25 19:37 Pulse 96 03/12/25 19:37 Resp 28 H 03/12/25 20:30 BP 137/79 03/12/25 19:37 Pulse Ox 93 03/12/25 20:30 O2 Del Method Room Air 03/12/25 19:37 O2 Flow Rate 3 03/11/25 20:00 03/12/25 03/12/25 03/12/25 06:59 14:59 22:59 Intake Total 300 / 1819.875 670 / 670 730 / 1400 Output Total 650 / 2000 1130 / 1130 Balance -350 / -180.125 -460 / -460 730 / 270 Weight last 48 hrs Weight 100 kg Weight 99.5 kg Physical Exam 2 Narrative: Accompanied by his Const: COMMON NORMALS: patient oriented x3 and alert GENERAL APPEARANCE: c ooperative ORIENTATION/CONSCIOUSNESS: Yes awake HENMT: COMMON NORMALS: oropharynx normal Neck/C-Spine: COMMON NORMALS: no JVD Resp: COMMON NORMALS: normal respiratory effort and clear to auscultation bilaterally AUSCULTATION: clear to auscultation bilaterally Cardio: COMMON NORMALS: no JVD, regular rhythm, S1 normal heart sound present, S2 normal heart sound present and No murmurs present (Cardio) RHYTHM: regular rhythm HEART SOUNDS: S1 normal heart sound present and S2 normal heart sound present GI: COMMON NORMALS: Normal to inspection, nondistended, normoactive bowel sounds present, Soft to palpation and non-tender PALPATION: Yes Soft to palpation OTHER: Right lower abdomen urostomy with surrounding herniation, soft, nontender, without any erythema, urostomy appears pink and perfused without any signs of ischemia. Amount of clear urine in the bag. Back/Pelvis: OTHER: Without rash, swelling, bruising or any mass. Extremity: COMMON NORMALS: no joint enlargement and no pedal edema N ARRATIVE EXTREMITY EXAM: Left hip pain on PROM. Without any redness or swelling. GENERAL: Yes edema (trace) OTHER: Right foot deformity with Charcot foot, unstageable ulcer with black eschar around 2-1/2 cm in diameter with surrounding bruising Neuro: COMMON NORMALS: patient oriented x3 and moves all extremities S ENSORIUM/ORIENTATION: Yes alert Skin: COMMON NORMALS: no rashes or lesions noted GENERAL SKIN EXAM: no rashes or lesions noted Data 03/12/25 02:13 03/12/25 02:13 Micro: Microbiology 03/07/25 13:50 Blood Culture - Final Blood NO GROWTH AFTER 5 DAYS 03/07/25 13:45 Blood Culture - Final Blood NO GROWTH AFTER 5 DAYS A&P Assessment and plan 1. Type 2 diabetes mellitus with other specified complication, unspecified whether long term care phlebotomist insulin use: 2. Charcot joint of right foot: 3. Non-pressure chronic ulcer of other part of right foot with fat layer exposed: Plan: Severe Sepsis Acute metabolic Encephalopathy, resolved. CAP Bacteremia Right foot MRI could not be obtained due to difficulties with the machine. Study deferred. CT foot was obtained by ID. Noted significant phlegmonous fat stranding and appears to be chronic wound complex fluid along the area measuring 21 x 1.2 cm. Complex area of phlegmonous change and superinfected collection is suspected. Extensive destructive changes. With soft tissue findings osteomyelitis superimposed on chronic arthropathy not excluded. Updated podiatry to reassess tomorrow. He is also complaining of left hip. No redness or swelling, warmth at the joint. Does have pain on PROM. Reports pain has been worsening. Started after falling on his knee several days prior to admit. Will image with CT. GWEN reviewed cardiology note, unremarkable. Trial of Zosyn today per discussion with ID. Monitor for risk of reaction has tolerated vancomycin so far. Post-DC planning. Plans for rehabilitation at [place] with IV antibiotics. Discussed with nursing, director case management. Concern for possible endocarditis enterococcal bacteremia 3/4 bottles but also 1/4 bottles MSSA. Source unclear. Repeat blood culture reviewed, so far negative. [facility], orders have been provided for case management, arrangements underway. Left hip pain: Endorses pain, present on PROM, standing. Started after fall days ago. CT hip shows no fractures or dislocation. Hypoxemia Resolving. Weaning down to room air. Coverage for possible pneumonia as above, previously with productive cough, recurrent fever. Transition to p.o. diuretic for CHF. Monitor blood pressure. Monitor for risk of electrolyte abnormality, worsening JULY. CT chest reviewed, unremarkable. Reviewed CBC, without leukocytosis. Discussed with nursing, director case management. AMS resolved. Likely acute metabolic encephalopathy. Complicated UTI Received treatment including with meropenem. Repeat culture cleared out. CT abdomen pelvis, noted perinephric stranding. Discussed with him findings of pyelonephritis. With recurrent UTI discussed with him would benefit from setting up follow-up with urology for reassessment of ileal conduit, with noted herniation, question of whether it may be contributing to his recurrent UTIs, although otherwise has been asymptomatic from it. He verbalized that he plans to do so. With lower back pain. 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 No evidence of incarceration. - Hx of bladder cancer w/ urostomy CHF Additional Lasix today. Reviewed CMP. PO Lasix. Acute diastolic CHF, prior echo reviewed, EF 60%. Grade 2 diastolic dysfunction. No RWMA. Difficult to gauge volume status although has had congestive changes on chest x-ray. Persistent hypoxia. May need home O2 - 03/02: CXR: Reviewed and results as follows: Cardiomegaly with central venous congestion and interstitial edema. Early congestive failure. - Dly wt, strict I&Os, cardiac diet - Titrate O2 as indicated - Monitor CBC, CMP, Mag dly. Hypomagnesemia Has been replaced. Recheck level. CAD Dyslipidemia - Continue home medications aspirin 81 mg PO dly, atorvastatin 40 mg PO dly, clopidogrel 75 mg PO Dly - Cardiac diet HTN -With soft blood pressure hold losartan 12.5mg PO dly DM2 CKD stage 2 Diabetic neuropathy - A1c ordered, pending. - Blood glucose monitoring, ACHS - Low regimen sliding scale - Hypoglycemic protocol - Cardiac Carb consistent diet - Continue home medication gabapentin 600 mg PO Q8H. With soft blood pressure reduced to 300. PETER - Does not wear cpap at home - Continuous pulse ox GERD - On home famotidine 40mg PO dly Non-pressure chronic ulcer right foot - Chronic wounds on his leg and feet, healing pretty well at this point. - Follows with Dr. Day outpt. Appreciate consultation. - Will need reassessment given imaging findings above. ?Plan for Surgical debridement planned for 03/13/2025, given the soft tissue findings per podiatry, osteomyelitis cannot be excluded on chronic Charcot atrophy. Hx of bladder cancer w/ urostomy placement Persistent cough ? Cough suppressant,Improved with dextromethorphan Plan for surgical debridement tomorrow morning. Patient placed n.p.o. after midnight, with IV fluids running after midnight. Patient is a minimal risk of perioperative complications. CODE STATUS: Full Code VTE prophylaxis: Lovenox PDMP PDMP Reviewed: Not Reviewed Attestations 2 Medical Necessity Statement*: Continue admission for assessment of MSSA bacteremia, possible right foot osteomyelitis with surgical debridement required during admission. Coding Level of Care Code 90337 Diagnoses Type 2 diabetes mellitus with other specified complication, unspecified whether long term care phlebotomist insulin use E11.69 Diabetes mellitus complication status: with other specified complication Diabetes mellitus assisted insulin use: unspecified assisted insulin use status Charcot joint of right foot M14.671 Non-pressure chronic ulcer of other part of right foot with fat layer exposed L97.512
[2025-03-12] MEDS: insulin glargine 100 units/1 mL 65 UNIT SUBCUT (22:21)
[2025-03-13] VITALS (11 sets, daily range): BP systolic 90–140; BP diastolic 51–81; PULSE 62–77; RESP 14–23; TEMP 36.2–37.1; O2SAT 93–99
[2025-03-13] MEDS: nystatin 100,000 unit/mL UDC 5 mL 500000 UNIT PO (02:31)
[2025-03-13] MEDS: oxyCODONE 5 mg IR Tab/Cap PO ×2 (02:32→08:53)
[2025-03-13 04:26] LABS: Hematocrit 37.6 % (37-53); Hemoglobin 12.20 g/dL (11.27-16.99); Mean Corpuscular HGB Conc 32.4 g/dL (30-55); Mean Corpuscular Hemoglobin 29.3 pg (27-33); Mean Corpuscular Volume 90.2 fl (82-101); Nucleated Red Blood Cells % 0 %; Platelet Count 224 10^3/cmm (157-399); Red Blood Count 4.17 10^6/uL (3.85-5.65); White Blood Count 6.05 10^3/uL (3.29-11.43)
[2025-03-13 04:56] LABS: Alanine Aminotransferase 29 U/L (0-41); Albumin Level 3.0 g/dL (3.5-5.2); Alkaline Phosphatase 107 U/L (40-130); Anion Gap 13.1 (5-19); Aspartate Amino Transferase 27 U/L (0-40); Blood Urea Nitrogen 31 mg/dL (8-23); Calcium 9.0 mg/dL (8.5-10.5); Carbon Dioxide 27 mmol/L (22-29); Chloride 100 mmol/L (98-107); Globulin 4.0 g/dL (1.3-4.6); Glucose 107 mg/dL (65-115); Osmolality Calculated 289 mOsm/kg (285-295); Potassium 4.1 mmol/L (3.5-5.1); Sodium 136 mmol/L (136-145); Total Protein 7.0 g/dL (6.6-8.7)
[2025-03-13 04:57] LABS: Magnesium 2.1 mg/dL (1.7-2.3)
--- NOTE | 2025-03-13 06:17 | ANES.PREANE2 ---
Pre-Anesthetic Assessment Height/Weight: Height 6 ft Weight 217 lb 2.485 oz Temp Pulse Resp BP Pulse Ox O2 Del Method O2 Flow Rate 97.8 F 75 16 139/74 95 Room Air 3 03/13/25 04:00 03/13/25 04:00 03/13/25 04:00 03/13/25 04:00 03/13/25 04:00 03/13/25 04:00 03/11/25 20:00 Preop Diagnosis: Bacteremia Operation Date: 03/13/25 07:00 Proposed Procedures p Incision of Bone Cortex righ foot(Right) - Noble Day DPM Was Beta Jarad taken within 24 hours: N/A Was Clonidine taken within 24 hours: N/A Social Tobacco and No alcohol Exam alert, oriented x 3, clear to auscultation bilaterally and regular rate & rhythm Airway Submandibular: within normal limits Cervical ROM: within normal limits Mallampati: Class III Dentition: false Anesthetic Plan ASA status: 4 Anesthesia: MAC Other: No patient initially admitted 03/02/2025 for pneumonia and hypoxemia as well as sepsis No prior issues with anesthesia Patient recently had a GWEN with us under MAC anesthesia and did well Acute metabolic encephalopathy has resolved Respiratory status is improving, on room air, SpO2 92% Acute diastolic CHF, prior echo showing EF of 60%. GWEN showing EF of 55 to 60% Cardiomegaly seen on chest x-ray Diabetic neuropathy noted CKD stage II PETER, no CPAP GERD on Pepcid Labs reviewed from today and acceptable for procedure Plan for MAC anesthesia Medications/Allergies Home Medications ?Medication ?Instructions ?Recorded ?Confirmed ?Last Taken ?Type [place] boot #1 ea 08/21/24 03/02/25 Unknown Rx carbon fiber afo #1 ea 12/20/24 03/02/25 Unknown Rx albuterol sulfate 90 mcg/actuation 2 inh inhalation Q4H PRN shortness 12/25/24 03/02/25 Unknown Rx aerosol inhaler of breath or wheezing #18 grams aspirin 81 mg tablet,delayed 81 mg PO DAILY #90 tabs 12/25/24 03/02/25 03/02/25 Rx release atorvastatin 40 mg tablet (Lipitor) 40 mg PO DAILY #90 tabs 12/25/24 03/02/25 03/02/25 Rx clopidogrel 75 mg tablet 75 mg PO DAILY #90 tabs 12/25/24 03/02/2503/02/25 Rx flash glucose sensor (FreeStyle #2 ea 12/25/24 03/02/25 Unknown Rx Jenae 2 Sensor kit) fluticasone propionate 50 1 spray intranasal DAILY PRN nasal 12/25/24 03/02/25 03/02/25 Rx mcg/actuation nasal congestion #16 grams spray,suspension (Flonase Allergy Relief) gabapentin 600 mg tablet 600 mg PO Q8H #270 tabs 12/25/24 03/02/25 03/02/25 Rx insulin glargine 100 unit/mL (3 65 unit (0.65 mL) SUBCUT BID #15 mL 12/25/24 03/02/25 03/02/25 Rx mL) subcutaneous pen (Lantus Solostar U-100 Insulin) insulin lispro 100 unit/mL 15 unit (0.15 mL) SUBCUT TID #15 mL 12/25/24 03/02/25 03/02/25 Rx subcutaneous pen (Humalog KwikPen (U-100) Insulin) ropinirole 4 mg tablet 8 mg (2 x 4 mg) PO BID #360 tabs 12/25/24 03/02/25 03/02/25 Rx famotidine 40 mg tablet 40 mg PO BID #180 tabs 01/01/25 03/02/25 03/02/25 Rx losartan 25 mg tablet 12.5 mg (1/2 x 25 mg) PO DAILY #45 01/01/25 03/02/25 03/02/25 Rx tabs flash glucose scanning reader #1 ea 01/16/25 03/02/25 Unknown Rx (FreeStyle Jenae 2 [place]) Diabetic shoe with Custom #1 ea 01/23/25 03/02/25 Unknown Rx accommodative insoles ertapenem 1 gram solution for 1 g IV DAILY 11 days 03/07/25 Unknown Rx injection furosemide 20 mg tablet (Lasix) 20 mg PO DAILY #90 tabs 03/07/25 Unknown Rx lidocaine 5 % topical patch 1 patch topical [id number] #20 ea 03/07/25 Unknown Rx linezolid 600 mg tablet 600 mg PO BID 11 days #22 tabs 03/07/25 Unknown Rx Allergies Allergy/AdvReac Type Severity Reaction Status Date / Time Penicillins Allergy ALGY-Hives Verified 03/10/25 08:10 Current Medications Generic Name Dose Route Start Last Admin Trade Name Duaneq PRN Reason Stop Dose Admin Acetaminophen 650 mg 03/02/25 16:42 03/06/25 09:13 Acetaminophen 325 Mg Tablet PO 650 mg Q6H PRN Administration Mild/Mod Pain Or Temp >/= 101 Albuterol Sulfate 2.5 mg 03/02/25 17:02 03/06/25 08:03 Albuterol 2.5 Mg/3 Ml Neb INHALATION 2.5 mg Q4H PRN Administration shortness of breath or wheezing Aspirin 81 mg 03/03/25 05:00 03/13/25 05:49 Aspirin 81 Mg Ec Tablet PO Not Given DAILY [facility] Atorvastatin Calcium 40 mg 03/03/25 05:00 03/13/25 05:49 Atorvastatin 40 Mg Tablet PO Not Given DAILY [facility] Clopidogrel Bisulfate 75 mg 03/03/25 05:00 03/13/25 05:49 Clopidogrel 75 Mg Tablet PO Not Given DAILY [facility] Docusate Sodium 100 mg 03/02/25 17:00 03/13/25 05:49 Docusate Sodium 100 Mg Capsule PO Not Given BID RAFAELA Enoxaparin Sodium 40 mg 03/07/25 17:00 03/12/25 17:48 Enoxaparin 40 Mg/0.4 Ml Syringe SUBCUT 40 mg Q24H [facility] Administration Famotidine 40 mg 03/03/25 18:00 03/13/25 05:49 Famotidine 20 Mg Tablet PO Not Given BID RAFAELA Furosemide 40 mg 03/09/25 08:00 03/12/25 08:41 Furosemide 40 Mg Tablet PO 40 mg DAILY@0800 [facility] Administration Gabapentin 300 mg 03/03/25 12:11 03/13/25 05:49 Gabapentin 300 Mg Capsule PO Not Given Q8H RAFAELA Hydromorphone HCl 0.4 mg 03/07/25 18:09 03/11/25 16:34 Hydromorphone 0.5 Mg/0.5 Ml Inj IVP 0.4 mg Q4H PRN Administration SEVERE PAIN Vancomycin HCl 1,000 mg/ 250 mls @ 250 mls/hr 03/09/25 15:30 03/13/25 06:15 Sodium Chloride IV Infused Q12H RAFAELA Infusion Dextrose/Lactated Ringer's 1,000 mls @ 75 mls/hr 03/13/25 01:00 03/13/25 02:03 Dextrose 5%-Lactated Ringers IV 75 mls/hr .[id number] RAFAELA Administration Insulin Glargine 65 unit 03/03/25 12:05 03/12/25 22:21 Insulin Glargine 100 Units/1 Ml SUBCUT 65 unit BEDTIME RAFAELA Administration Insulin Human Lispro 0 unit 03/02/25 18:00 03/12/25 22:22 Insulin Lispro 100 Unit/1 Ml SUBCUT 8 unit WM&BEDTIME RAFAELA Administration Protocol Lidocaine 1 patch 03/07/25 08:45 03/13/25 05:49 Lidocaine 5% Patch TOPICAL Not Given [id number] [facility] Losartan Potassium 12.5 mg 03/03/25 05:00 03/03/25 08:19 Losartan 25 Mg Tablet PO Not Given On Hold: 03/03/25 12:10 DAILY [facility] Nystatin 500,000 unit 03/11/25 11:00 03/13/25 06:06 Nystatin 100,000 Unit/Ml Udc 5 Ml PO Not Given QID [facility] Ondansetron HCl 4 mg 03/02/25 16:42 03/05/25 06:42 Ondansetron 2 Mg/Ml Sdv 2 Ml IVP 4 mg Q8H PRN Administration vomiting, or N/V if npo Oxycodone HCl 5 mg 03/04/25 01:20 03/13/25 02:32 Oxycodone 5 Mg Ir Tab/Cap PO 5 mg Q4H PRN Administration MODERATE PAIN Ropinirole HCl 8 mg 03/04/25 09:45 03/13/25 05:49 Ropinirole 2 Mg Tablet PO Not Given BID [facility] Additional Medication Information Abx history : Zosyn 03/09 Meropenem 03/05- 03/09 ; 03/02 x 1 Linezolid 03/04- current ; 03/02 x 1 levofloxacin 03/02-03/04 PFS Anesthesia Medical History (Updated 03/11/25 @ 08:22 by Magda Feng MD) Prepatellar bursitis, right knee Osteoarthritis of right knee Acute pain of right knee 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 BG well controlled with scheduled insulin -consistent carb diet as tolerated Parastomal hernia PETER (obstructive sleep apnea) History of bladder cancer Hx of intestinal obstruction Surgical History (Updated 03/10/25 @ 07:42 by Magda Feng MD) History of appendectomy History of cholecystectomy History of shoulder surgery History of urostomy History of esophageal hernia repair Family History Mother Thyroid disease Hypertension Father Hypertension Social History Smoking and tobacco/nicotine status: former use of tobacco/nicotine Quit status (tobacco/nicotine): has quit using Year quit tobacco: 2009 Former quit date comment: previously 4 ppd Alcohol intake: former Substance/Drug Use: never Lives independently: Yes Household members: other Details: brother Marital status: / Number of children: 1 Number of grandchildren: 2 service: No Current occupational status: retired and 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 gender identity: Male Special jose carlos needs: No Agree to transfusion: Yes Data Anesthesia 03/13/25 03:03 03/13/25 03:03 Short CBC 03/12/25 03/13/25 Range/Units 02:13 03:03 WBC 6.21 6.05 (3.29-11.43) 10^3/uL Hgb 12.30 12.20 (11.27-16.99) g/dL Hct 36.9 L 37.6 (37-53) % MCV 86.4 90.2 (82-101) fl Plt Count 209 224 (157-399) 10^3/cmm Neut % (Auto) 55.1 50.9 % Neut # (Auto) 3.42 3.08 (1.8-7.7) 10^3/uL BMP 03/12/25 03/13/25 02:13 03:03 Sodium 133 L 136 Potassium 4.5 4.1 Chloride 97 L 100 Carbon Dioxide 24 27 BUN 32 H 31 H Creatinine 1.1 1.2 Glucose 121 H 107 Calcium 8.3 L 9.0 Liver Function 03/12/25 03/13/25 Range/Units 02:13 03:03 Total Bilirubin 0.4 0.4 (0.15-1.2) mg/dL AST 27 27 (0-40) U/L ALT 34 29 (0-41) U/L Alkaline Phosphatase 104 107 (40-130) U/L Albumin 3.1 L 3.0 L (3.5-5.2) g/dL COVID Results 03/11/25 10:43 Coronavirus 229E (PCR) Not detected SARS-CoV-2 (PCR) Not detected Coags 03/11/25 03:53 ESR 83 H Microbiology 03/07/25 13:50 Blood Culture - Final Blood NO GROWTH AFTER 5 DAYS 03/07/25 13:45 Blood Culture - Final Blood NO GROWTH AFTER 5 DAYS Cardiac Studies: Echocardiogram 03/05/25 Transesophageal Echocardiogram 03/09/25 Sestamibi Stress Test (Cardiology) 04/13/24
--- NOTE | 2025-03-13 06:39 | P.HPUD_ITS ---
Surgery/Procedure H&P Update DATE OF PROCEDURE: March 13, 2025 DATE H&P PERFORMED: 03/02/25 H&P UPDATE INFORMATION: I have reviewed H&P completed within last 30 days, I have examined patient prior to procedure, No changes to prior documentation, H&P is in [facility] EMR on date indicated and Risks and benefits of the procedure reviewed PREOP DIAGNOSIS: Bacteremia PLANNED PROCEDURE: Operation Date: 03/13/25 07:00 Proposed Procedures p Incision of Bone Cortex righ foot(Right) - Noble Day DPM
--- NOTE | 2025-03-13 07:17 | P.PN_ITS ---
Subjective 2 Subjective: ID progress note No new complaints today Feels better Planned to be discharged today to SNF Going for foot debridement today Medications: Reviewed: Yes Medication Review Details: Abx history : Zosyn 03/09 Meropenem 03/05- 03/09 ; 03/02 x 1 Linezolid 03/04- current ; 03/02 x 1 levofloxacin 03/02-03/04 Vitals/I&O/Wt Last Vital Signs Temp 97.8 F 03/13/25 04:00 Pulse 75 03/13/25 04:00 Resp 16 03/13/25 04:00 BP 139/74 03/13/25 04:00 Pulse Ox 95 03/13/25 04:00 O2 Del Method Room Air 03/13/25 06:39 O2 Flow Rate 3 03/11/25 20:00 03/12/25 03/13/25 03/13/25 22:59 06:59 14:59 Intake Total 1080 / 1750 250 / 2000 Output Total 550 / 1680 100 / 1780 Balance 530 / 70 150 / 220 Weight last 48 hrs Weight 98.5 kg Weight 100 kg Physical Exam 2 Narrative: Assessed via telehealth no new complaints Awake, alert On room air Data 03/13/25 03:03 03/13/25 03:03 Micro: Microbiology 03/07/25 13:50 Blood Culture - Final Blood NO GROWTH AFTER 5 DAYS 03/07/25 13:45 Blood Culture - Final Blood NO GROWTH AFTER 5 DAYS A&P Assessment and plan 1. Cellulitis of right foot: 2. MSSA bacteremia: 3. Bacteremia due to Enterococcus: 4. History of ileal conduit: 5. Urine culture positive: 6. Foot abscess: Plan: 74M with known ileal conduit x 30 years, chronic urinary colonization with Enterobacteraciae, currently admitted to the hospital with c/o fever and AMS. During course of evaluation found to have positive urine culture with Serratia sp and Providentia. Thought to have a UTI upon presentation, receoved Levofloxacin 03/02-03/04, transitioned to meropenem thereafter. No hydronephrosis noted on abdominal imaging More significantly, blood cx positive for MSSA 03/02 and Enterococcus fecalis on 03/05. Started on Linezolid thereafter. Neither of the blood organisms isolated from urine. Stoma site appears to be healthy. No significant change in urine output from stoma. NO recent blockages or significant mucus. Noted to have ulceration over plantar aspect of the foot with surrouding erythema and mild fluctuance, concerned about underlying osteomyelitis, cellulitis. 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 Continues to have low grade fever at this time, given + blood cx for highly concerning organisms with MSSA and Enterococcus, with recent h/o osteomyelitis, recommend GWEN to evaluate for endocarditis and MRI foot to assess for osteomeyelitis and any underlying abscess. D/C linezolid as bacteriostatic, would not be ideal choice for BSI that needs to be treated with prolonged abx course. Change to iv vancomycin interesting prior skin cx have revealed MRSA on multiple occasions, however current blood cx with MSSA. Chart notes allergy to penicillin, patient reports hives several years ago. Review of chart shows he has received iv ceftriaxone in 2019 without any issues and currently tolerating meropenem. Plan to d/c meropenem in the morning and proceed with test dose of Zosyn in am, followed by full dose if does not develop any allergic reaction. Will follow. 03/09/25: GWEN negative for vegetations. Blood cx from 03/07 thus far without any growth. Respiratory cx with Lea , from orpharyngeal thrush. Add Nystatin. MRI foot unable to be completed as patient unable to lay still. TO be attemoted again this evening. Fever curve is improving. Tolerated test dose and full dose of Zosyn this afternoon. D/c Meropenem, change to Zosyn renally dosed. For today, continue iv Zosyn, monitor for any adverse reactions. Continue iv vancomycin. Patient with planned transition to SNF, disposition planning is ongoing. 03/10/25 : Chart Reviewed. Tolerated Zosyn since yesterday without any adverse events. Fever curve improving. T MAx 99F last 24 hrs. MRI foot unable to be completed as patient could not lay still Changed to CT right foot w/o contrast PICC line was placed 03/07. Blood cx clear as of 03/07/25 Currently on Zosyn and iv vancomycin. Considered discharge on Iv Ampicillin + cefazolin vs Ceftriaxone for Enterococcus fecalis and MSSA bacteremia, however q4h administration will likely not be feasible at [facility]. Will plan discharge on iv vancomcyin 1g iv every 12 hrs for 4 weeks (03/07- 03/28) with weekly CBC, Creat, LFT,Vanc trough Complete short course of abx for gram negatives isolated on urine cx 03/05-03/11 (meropenem--> Zosyn), favored more likely colonization. Will follow with CT foot results 03/11/25 : CT foot showing several chronic destructive changes and chronic plantar ulceration. however concerned about the more acute complex fluid collection and phlegmonous changes noted on CT foot. Recommend podiatry evaluation to assess for debridement since patient continues to have low grade fever and to obtain cultures from debridement to tailor abx therapy further.Continue Zosyn, day 7 today. Continue vancomycin until 03/28. Will follow 03/13/25: No new complaints today, Feels well. off . Planned for OR debridement later this morning with planned cuboid bone biopsy. Will follow these cultures as outpatient. Afberile now past 48 hrs.Completed 7 days gramnegative coverage on 03/12. Currently remains on iv vancomycin which will be continued until 03/[address] [facility] with weekly labs . Stable for discharge from ID standpoint. F/up ID clinic on 04/19. Thank you for this consult. Please call with any further questions or concerns PDMP PDMP Reviewed: Not Reviewed Attestations 2 Medical Necessity Statement*: per admitting note Coding Level of Care Code Acute Code for g Fwd Diagnoses Cellulitis of right foot L03.115 MSSA bacteremia R78.81; B95.61 Bacteremia due to Enterococcus R78.81; B95.2 History of ileal conduit Z98.890 Urine culture positive R82.79 Foot abscess L02.619
[2025-03-13] MEDS: BUPivacaine 0.5% INJ 30 mL INJECTION (07:30)
--- NOTE | 2025-03-13 07:34 | P.BOP_ITS ---
Date of Procedure: 06/04/23 Surgeon: Noble Day DPM Log Carrier Operator(s): Augustni Procedure(s) performed: Incision of bone cortex right foot Findings of the procedure(s): None Estimated blood loss: 5 ml Specimen(s) removed: bone from cuboid right foot sent to microbiology for Gram stain culture and sensitivity Post-operative diagnosis: Charcot foot right with rocker-bottom deformity
--- NOTE | 2025-03-13 07:46 | P.OP_ITS ---
Operative Report Date of procedure: March 13, 2025 Pre-op diagnosis: Osteomyelitis right foot. L97.514 Post-op diagnosis: Same Procedure done: Incision of bone cortex right cuboid. CPT code 56511 Implants: 2-0 Vicryl, 3-0 Vicryl, 4-0 nylon Specimens removed/disposition: Bone from right cuboid sent to microbiology for Gram stain culture and sensitivity Surgeon: Noble Day DPM Product Assurance Engineer: Augustin Estimated blood loss: 5mL 17 min IV fluids: see intraoperative documentation Urine output: No urine output Complications: No complications Brief History: Bacteremic, has chronic wound right plantar foot secondary to rocker-bottom Charcot foot deformity, needing more source identification and would like to proceed with bone debridement with culture to micro to evaluate for osteomyelitis. Procedure: Under mild sedation the patient was brought to the operating room and remained on the gurney in supine position. A timeout was performed. Anesthesia was then administered by the anesthesia service. Local anesthesia injected by myself consisting of 30 cc of one-to-one mixture 1% lidocaine and 0.5% Marcaine plain in a right lateral rear foot block fashion. Well-padded pneumatic tourniquet applied to the right ankle. The right lower extremity was scrubbed, prepped and draped utilizing normal aseptic technique. Right foot and ankle were elevated and tourniquet inflated to 250 mmHg. Tissue was directed to right plantar foot where subcuboid chronic ulceration was appreciated this did not probe directly to bone. Lateral to the cuboid a incision was performed through skin with #15 blade with dissection carried down through subcutaneous tissue to the layer of periosteum utilizing a combination of sharp and blunt technique. Bone cortex on the inferior/plantar surface of the right cuboid was incised and bone obtained and sent to microbiology for Gram stain, culture and sensitivity. Further debridement of inferior surface of the cuboid of devitalized bone down to healthy bone appreciated this was done with a sagittal saw and pickups and a 15 blade with all rough edges smoothed postdebridement. The incision was irrigated with saline solution, no further devitalized tissue appreciated. Closure with 2-0 Vicryl, 3-0 Vicryl and 4-0 nylon. Incision dressed with Xeroform, sterile gauze, Kerlix and Connor wrap. Tourniquet was deflated and a prompt hyperemic response is noted to the distal digits of the right foot. Patient tolerated the procedure and anesthesia well and was transferred to the PACU with vital signs stable and vascular status intact. Following a period of postoperative monitoring he will be transferred back to [facility] to continue IV antibiotics, infectious disease on board for recommendations on long-term IV antibiotics.
--- NOTE | 2025-03-13 07:52 | ANE.PACU2 ---
Inpatient post-anesthesia follow up: Airway intact: Yes Vital signs: Temperature 98.8 F Pulse Rate 77 Respiratory Rate 23 Blood Pressure 140/81 Pulse Oximetry [6 Minute 93 Exercise Test on R oom Air] Pulse Oximetry [Ro om Air at 96 Rest] Pulse Oximetry 93 Oxygen Delivery Me thod Room Air Oxygen Flow Rate 3 Fraction of Inspir ed Oxygen Hydration adequate: Yes Nausea and vomiting: No Pain level: 1 Mental status: Baseline
--- NOTE | 2025-03-13 10:15 | P.PN_ITS ---
Subjective 2 Subjective: no new c/o Medications: Reviewed: Yes Vitals/I&O/Wt Last Vital Signs Temp 98.0 F 03/13/25 08:00 Pulse 75 03/13/25 08:00 Resp 20 H 03/13/25 08:53 BP 108/73 03/13/25 08:00 Pulse Ox 96 03/13/25 08:53 O2 Del Method Room Air 03/13/25 07:49 O2 Flow Rate 3 03/11/25 20:00 03/12/25 03/13/25 03/13/25 22:59 06:59 14:59 Intake Total 1080 / 1750 250 / 2000 410 / 410 Output Total 550 / 1680 100 / 1780 5 / 5 Balance 530 / 70 150 / 220 405 / 405 Weight last 48 hrs Weight 98.5 kg Weight 100 kg Physical Exam 2 Narrative: Vital signs noted. HEENT normocephalic atraumatic Neck is supple Lungs have crackles and rhonchi. Heart regular positive S1-S2. Abdomen is soft positive bowel sounds positive ostomy with hernia around it. Extremities do not have edema Poor distal pulses. Neuro awake alert oriented x 3 Data 03/13/25 03:03 03/13/25 03:03 Micro: Microbiology 03/07/25 13:50 Blood Culture - Final Blood NO GROWTH AFTER 5 DAYS 03/07/25 13:45 Blood Culture - Final Blood NO GROWTH AFTER 5 DAYS A&P Assessment and plan 1. Acute kidney injury: 74-year-old man underlying diabetes with neuropathy, peripheral vascular disease, heart failure preserved EF, CAD, hyperlipidemia, obstructive sleep apnea. Patient is here with infection presumed pneumonia versus UTI . 1. Acute on chronic kidney disease stage III:Creatinine baseline is in the range of 1.2-1.4, creatinine currently is in the 1.7/1.8 range and stable. UA 2+ protein and trace blood, also consistent with UTI showing 4+ bacteria and positive nitrates. Etiology of current JULY likely ATN from hypotension. Creatinine is currently stable, continue to monitor. CT scan with normal-sized kidneys. -, started PO lasix 40 mg daily avoid nephrotoxic agents and IV contrast studies. 2. Hyponatremia , sodium 134 , monitor 3. Sepsis in the setting of complicated UTI and pneumonia, staph aureus and enterococcus bacteremia , plan for GWEN 4. Metabolic encephalopathy, improving Patient was seen and examined with aid of a nurse using A/V equipment. The patient consented to telehealth Plan: See above. PDMP PDMP Reviewed: Not Reviewed Attestations 2 Medical Necessity Statement*: per medicine Coding Level of Care Code Acute Code for [facility] Fwd Diagnoses Acute kidney injury N17.9
--- NOTE | 2025-03-13 10:18 | P.DS_ITS ---
Discharge Providers Date of Admission: 03/02/25 16:28 Date of Discharge: March 13, 2025 Attending Provider at Admission: Bernardo Tinoco MD Attending Provider at Discharge: Remy Whelan MD Primary Care Provider: Ivett Still MD Diagnoses at Discharge Discharge Diagnosis 1. 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 Continued o xygen supplementation. With possible pneumonia/bronchitis continued on antibiotic coverage. Hypoxia gradually improving/resolving. JULY on CKD showing improvement, please reassess. He also continued treatment for possible sepsis, with resolution, with source being found to be secondary to complicated UTI with enterococcal bacteremia, with MDRO Serratia in urine not responding to initial antibiotic choice with recurrent fevers, without obstructive changes on CT, antibiotic adjusted to meropenem with fever resolving. 1/4 bottles MSSA from blood culture 03/02 possible contaminant, not present on subsequent culture. Additional blood culture repeated. Will complete additional 11 days of IV antibiotic with ertapenem and oral linezolid. Will need follow-up blood counts. Echocardiogram unremarkable with grade 1 diastolic dysfunction. Has been having worsening of his chronic back pain, imaged with MRI with progression of degenerative changes and stenosis of several levels since July. Finding of central disc protrusion with annular fissure at L3-4, facet and ligamentum flavum disease. Moderate central, subarticular recess and bilateral foraminal stenosis. Stenosis progressed since prior study. Small amount of edema within L3-4 disc. New soft tissue focus posterior to L3 highly suspicious for a very small disc extrusion from L3-4 disc which has migrated superiorly. Mild central, subarticular recess and foraminal stenosis L4-5. Moderate central bilateral subarticular recess with moderate left and mild right foraminal stenosis at L2-3 which has progressed. Mild right foraminal stenosis L1-2. On 03/13/2025 patient had debridement per podiatry on the right foot. Discussed with podiatry, Dr. Day. Noted there was normal density of the biopsy, no direct exposure to the bone as far as any infectious source grossly. Bone cultures are sent to the lab will follow-up as outpatient. Will have him follow-up with infectious disease and discussed with him needs to reestablish follow-up with his urologist given recurrent UTI, complicated UTI, and reassessment of urostomy herniation. Physical Exam Narrative: Accompanied by his Const: COMMON NORMALS: patient oriented x3 and alert GENERAL APPEARANCE: cooperative ORIENTATION/CONSCIOUSNESS: Yes awake HENMT: COMMON NORMALS: oropharynx normal Neck/C-Spine: COMMON NORMALS: no JVD Resp: COMMON NORMALS: normal respiratory effort and clear to auscultation bilaterally AUSCULTATION: clear to auscultation bilaterally Cardio: COMMON NORMALS: no JVD, regular rhythm, S1 normal heart sound present, S2 normal heart sound present and No murmurs present (Cardio) RHYTHM: regular rhythm HEART SOUNDS: S1 normal heart sound present and S2 normal heart sound present GI: COMMON NORMALS: Normal to inspection, nondistended, normoactive bowel sounds present, Soft to palpation and non-tender PALPATION: Yes Soft to palpation OTHER: Right lower abdomen urostomy with surrounding herniation, soft, nontender, without any erythema, urostomy appears pink and perfused without any signs of ischemia. Amount of clear urine in the bag. Back/Pelvis: OTHER: Without rash, swelling, bruising or any mass. Extremity: COMMON NORMALS: no joint enlargement and no pedal edema NARRATIVE EXTREMITY EXAM: Left hip pain on PROM. Without any redness or swelling. GENERAL: Yes edema (trace) OTHER: Right foot deformity with Charcot foot, unstageable ulcer with black eschar around 2-1/2 cm in diameter with surrounding bruising Neuro: COMMON NORMALS: patient oriented x3 and moves all extremities SENSORIUM/ORIENTATION: Yes alert Skin: COMMON NORMALS: no rashes or lesions noted GENERAL SKIN EXAM: no rashes or lesions noted Discharge Data Studies Completed and Pending Completed Studies During Hospitalization Category Date Time Status CT abdomen pelvis wo con [id number] Routine Cat Scan 03/03/25 11:[address] chest wo con [id number] Routine Cat Scan 03/07/25 14:[address] foot RT wo con* [id number] Routine Cat Scan 03/10/25 08:[address] hip LT wo con* [id number] Routine Cat Scan 03/10/25 19:07 Completed CXRIE [XR chest 2V insp/exp [id number]] Routine Exams 03/05/25 10:08 Completed XR chest 1V portable [id number] Routine Exams 03/07/25 10:21 Completed XR chest 1V portable [id number] Stat Exams 03/02/25 13:23 Completed XR foot RT min 3V* [id number] Routine Exams 03/11/25 09:25 Completed MR lumbar spine wo con* [id number] Routine MRI 03/06/25 18:34 Completed CV. echo complete* [id number] Routine Ultrasound 03/05/25 10:05 Completed CV. echo transesophageal [id number] Routine Ultrasound 03/09/25 08:00 Completed Pending at discharge Category Date Time Status Tissue Culture and Gram Stain Routine Lab 03/13/25 07:15 Received Radiology Impressions Abdomen/Pelvis CT 03/03/25 11:57 IMPRESSION: 1. Kidneys demonstrate nonspecific perinephric stranding bilaterally. UTI is not excluded. There is no evidence of obstructing urinary tract stones. Multiple calcifications are seen in both kidneys however these are felt to represent vascular calcifications not renal stones. 2. 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 No intra-abdominal fluid collections are appreciated. Small amount of ascites seen on previous study has resolved. 3. Cardiomegaly with small bilateral pleural effusions suggests possibility of mild heart failure. Lumbar Spine MRI 03/06/25 18:34 IMPRESSION: 1. Progression of degenerative disc disease and stenoses at several levels since 08/12/2023. 2. There is a small amount of edema within the L3-4 disc. 3. Central disc protrusion with annular fissure at L3-4. Facet and ligamentum flavum disease. Moderate central, subarticular recess and bilateral foraminal stenosis. Stenosis has progressed since the prior study. 4. There is a new soft tissue focus posterior to L3 highly suspicious for a very small disc extrusion. Disc extrusion would be from the L3-4 disc which has migrated superiorly. 5. Mild central, subarticular recess and foraminal stenosis at L4-5. 6. Moderate central, bilateral subarticular recess with moderate LEFT and mild RIGHT foraminal stenosis at L2-3 which has progressed. 7. Mild RIGHT foraminal stenosis at L1-2. Chest X-Ray 03/07/25 10:21 Impression: Satisfactory insertion of right PICC line. Chest CT 03/07/25 14:32 IMPRESSION: 1. No acute findings. 2. Mild bibasilar atelectasis. Foot CT 03/10/25 08:08 IMPRESSION: 1. Along the plantar forefoot at the level of the TMT joints there is significant phlegmonous fat stranding and what appears to be a chronic wound (series 13, images 42 through 31). No tracking deep soft tissue gas. Complex fluid along this areas suspected measuring 21 x 1.2 cm (series 12, image 47) in the plantar soft tissues. A complex area of phlegmonous change and superinfected collection is suspected. 2. Extensive destructive changes throughout the forefoot and midfoot with changes that can be associated with synovial arthropathy. Given the soft tissue findings osteomyelitis superimposed upon chronic Charcot atrophy can not be excluded. 3. If necessary an MRI with and without contrast could be obtained to further assess. 4. There are changes that can be associated with plantar fasciitis. Hip CT 03/10/25 19:07 IMPRESSION: No acute fracture or dislocation. Foot X-Ray 03/11/25 09:25 IMPRESSION: 1. Extensive erosive and destructive changes are present throughout the midfoot. There is malalignment of the tarsal bones with resultant pes planus. Area of lucency along the plantar aspect of the cuboid may correspond to an area of osteomyelitis. Findings do appear similar as compared to prior plain film radiographs of the right foot performed September 06, 2024. Findings were better seen on recent CT scan of the foot. Please see report from recent CT scan of the right foot performed March 10, 2025 for additional information. MRI of the foot should be considered for further evaluation. 2. Soft tissue fullness is present along the plantar soft tissues. Small area of subcutaneous gas is present within the plantar aspect of the lateral midfoot compatible with underlying wound and skin ulceration . Laboratory Results WBC 6.05 10^3/uL (3.29-11.43) 03/13/25 03:03 RBC 4.17 10^6/uL (3.85-5.65) 03/13/25 03:03 Hgb 12.20 g/dL (11.27-16.99) 03/13/25 03:03 Hct 37.6 % (37-53) 03/13/25 03:03 MCV 90.2 fl (82-101) 03/13/25 03:03 MCH 29.3 pg (27-33) 03/13/25 03:03 MCHC 32.4 g/dL (30-55) 03/13/25 03:03 RDW 13.0 % (12.1-15.1) 03/13/25 03:03 Plt Count 224 10^3/cmm (157-399) 03/13/25 03:03 MPV 9.9 fL (7.4-10.4) 03/13/25 03:03 Neut % (Auto) 50.9 % 03/13/25 03:03 Lymph % (Auto) 33.6 % 03/13/25 03:03 Will % (Auto) 11.1 % 03/13/25 03:03 Eos % (Auto) 3.1 % 03/13/25 03:03 Baso % (Auto) 1.0 % 03/13/25 03:03 Neut # (Auto) 3.08 10^3/uL (1.8-7.7) 03/13/25 03:03 Lymph # (Auto) 2.0 10^3/uL (0.8-4.8) 03/13/25 03:03 Will # (Auto) 0.7 10^3/uL (0.2-0.9) 03/13/25 03:03 Eos # (Auto) 0.2 10^3/uL (0.0-0.8) 03/13/25 03:03 Baso # (Auto) 0.1 10^3/uL (0.0-0.1) 03/13/25 03:03 Nucleated RBC % (auto) 0 % 03/13/25 03:03 Nucleated RBCs # 0.0 /100WBC 03/13/25 03:03 ESR 83 mm/hr (0-10) H 03/11/25 03:53 Specimen Type Arterial 03/02/25 13:50 Sample Site Radial, right 03/02/25 13:50 ABG pH 7.48 (7.35-7.45) H 03/02/25 13:50 ABG pCO2 37.3 mmHg (35-45) 03/02/25 13:50 ABG pO2 56.0 mmHg (80.0-100.0) L 03/02/25 13:50 ABG PO2/FiO2 Ratio 140 12/12/25 13:50 ABG HCO3 27.5 mmol/L (22-26) H 03/02/25 13:50 ABG O2 Saturation 91.5 03/02/25 13:50 ABG Base Excess 3.8 mmol/L (-2.0-2.0) H 03/02/25 13:50 Daron Test Pos 03/02/25 13:50 A-a O2 Gradient 23.8 mmHg (5-10) H 03/02/25 13:50 Hematocrit 45.6 % (42-52) 03/02/25 13:50 Hgb O2 Saturation 89.4 % (95-100) L 03/02/25 13:50 Carboxyhemoglobin 1.3 %THgb (0.4-20.1) 03/02/25 13:50 Methemoglobin 1.0 % (0.4-1.5) 03/02/25 13:50 Total Hemoglobin 14.9 g/dL (14-18) 03/02/25 13:50 Sodium 134.0 mmol/L (131-143) 03/02/25 13:50 Potassium 3.8 mmol/L (3.5-5.0) 03/02/25 13:50 Glucose 371.0 mg/dL (70-115) H 03/02/25 13:50 Ionized Calcium 1.1 mmol/L (1.1-1.4) 03/02/25 13:50 O2 Delivery Device Nc 03/02/25 13:50 O2 Liters/Min 5.0 % 03/02/25 13:50 FiO2 40.0 % 03/02/25 13:50 Road Machine Runner ID [email or web address] 03/02/25 13:50 Sodium 136 mmol/L (136-145) 03/13/25 03:03 Potassium 4.1 mmol/L (3.5-5.1) 03/13/25 03:03 Chloride 100 mmol/L (98-107) 03/13/25 03:03 Carbon Dioxide 27 mmol/L (22-29) 03/13/25 03:03 Anion Gap 13.1 (5-19) 03/13/25 03:03 BUN 31 mg/dL (8-23) H 03/13/25 03:03 Creatinine 1.2 mg/dL (0.7-1.2) 03/13/25 03:03 GFR Calculation Not Reportable 03/13/25 03:03 Glucose 107 mg/dL (65-115) 03/13/25 03:03 POC Glucose 98 mg/dL (70-110) 03/13/25 06:34 Estimat Average Glucose 361 03/02/25 13:05 Hemoglobin A1c 14.2 % (4.0-6.0) H 03/02/25 13:05 Calculated Osmolality 289 mOsm/kg (285-295) 03/13/25 03:03 Lactic Acid 2.9 mmol/L (0.5-2.2) H 03/02/25 13:05 Lactic Acid (Sepsis) 2.6 mmol/L (0.5-2.2) H 03/02/25 16:33 Uric Acid 6.7 mg/dL (3.4-7.0) 03/05/25 10:55 Calcium 9.0 mg/dL (8.5-10.5) 03/13/25 03:03 Phosphorus 3.4 mg/dL (2.5-4.5) 03/13/25 03:03 Magnesium 2.1 mg/dL (1.7-2.3) 03/13/25 03:03 Total Bilirubin 0.4 mg/dL (0.15-1.2) 03/13/25 03:03 AST 27 U/L (0-40) 03/13/25 03:03 ALT 29 U/L (0-41) 03/13/25 03:03 Alkaline Phosphatase 107 U/L (40-130) 03/13/25 03:03 Creatine Kinase 713 U/L (39-308) H* 03/05/25 10:55 Troponin T Baseline 48 ng/L (0-15) H 03/02/25 13:05 Troponin T 60 Minute 42.25 ng/L (0-15) H 03/02/25 13:52 Delta Troponin T -5.75 ABS# (0-10) L 03/02/25 13:52 Troponin T Hi Sens 6Hr 55.23 ng/L (0-15) H 03/02/25 19:09 Troponin T Hi Sens 6Hr Delta 7.23 ng/L (0-12) 03/02/25 19:09 C-Reactive Protein 83.0 mg/L (0.0-4.9) H 03/10/25 06:02 NT-Pro-B Natriuret Pep 570 pg/mL (0-125) H 03/02/25 13:05 Total Protein 7.0 g/dL (6.6-8.7) 03/13/25 03:03 Albumin 3.0 g/dL (3.5-5.2) L 03/13/25 03:03 Globulin 4.0 g/dL (1.3-4.6) 03/13/25 03:03 Triglycerides 140 mg/dL (0-150) 03/03/25 02:23 Cholesterol 121 mg/dL (0-200) 03/03/25 02:23 LDL Cholesterol, Calc 60 mg/dL (50-129) 03/03/25 02:23 HDL Cholesterol 33 mg/dL (60-100) L 03/03/25 02:23 LDL/HDL Ratio 1.82 RATIO (0.00-3.22) 03/03/25 02:23 Cholesterol/HDL Ratio 3.67 mg/dL (1.0-5.00) 03/03/25 02:23 25-OH Vitamin D Total 14 ng/mL (30-100) L 03/06/25 08:04 Procalcitonin 0.25 ng/mL (0-0.5) 03/02/25 13:05 TSH 1.07 uIU/mL (0.27-4.20) 03/12/25 02:13 Random Cortisol 18.43 ug/dL (2.47-19.5) 03/05/25 10:55 Urine Color Yellow (Yellow) 03/05/25 11:30 Urine Appearance Clear (CLEAR) 03/05/25 11:30 Urine pH 6.5 (5-7) 03/05/25 11:30 Ur Specific [place] 1.013 (1.005-1.030) 03/05/25 11:30 Urine Protein 2+ (Negative) A 03/05/25 11:30 Urine Glucose (UA) Negative (Normal) 03/05/25 11:30 Urine Ketones Negative (Negative) 03/05/25 11:30 Urine Blood 2+ (Negative) A 03/05/25 11:30 Urine Nitrate Negative (Negative) 03/05/25 11: Urine Bilirubin Negative (Negative) 03/05/25 11:30 Urine Urobilinogen 0.2 mg/dL (Negative) 03/05/25 11:30 Ur Leukocyte Esterase 1+ (Negative) A 03/05/25 11:30 Urine RBC 0-2 /hpf (0-2) 03/05/25 11:30 Urine WBC 11-20 /hpf (0-5) H 03/05/25 11:30 Ur Squamous Epith Cells 0-5 /hpf (0-5) 03/05/25 11:30 Amorphous Sediment Not Reportable 03/05/25 11:30 Urine Bacteria None seen /hpf (NONE) 03/05/25 11:30 Hyaline Casts 2.46 /lpf 03/05/25 11:30 Ur Random Sodium 46 mmol/L 03/05/25 11:30 Ur Random Potassium 28 mmol/L 03/05/25 11:30 Ur Random Chloride 16 mmol/L 03/05/25 11:30 Nasal MRSA (PCR) Not detected (Negative) 03/02/25 20:15 Vancomycin Trough 18.2 ug/mL (10-15) H 03/11/25 14:22 BLAS Screen Negative (NEGATIVE) 03/05/25 10:55 Complement C3 155 mg/dL (90-180) 03/05/25 10:55 Complement C4 26 mg/dL (10-40) 03/05/25 10:55 Adenovirus (PCR) Not detected (NOT DETECT) 03/11/25 10:43 C. pneumoniae DNA (PCR) Not detected (NOT DETECT) 03/11/25 10:43 Coronavirus 229E (PCR) Not detected (NOT DETECT) 03/11/25 10:43 Hepatitis C Antibody Non-reactive (Nonreactive) 03/05/25 10:55 Human Metapneumovir PCR Not detected (NOT DETECT) 03/11/25 10:43 Influenza A (H1) PCR Not detected (NOT DETECT) 03/11/25 10:43 Influenza A (PCR) Negative (Negative) 03/02/25 13:36 Influ A (H1/09) PCR Not detected (NOT DETECT) 03/11/25 10:43 Influenza A (H3) PCR Not detected (NOT DETECT) 03/11/25 10:43 Influenza Type A (PCR) Not detected (NOT DETECT) 03/11/25 10:43 Influenza Type B (PCR) Not detected (NOT DETECT) 03/11/25 10:43 M. pneumoniae (PCR) Not detected (NOT DETECT) 03/11/25 10:43 Parainfluenza 1 (PCR) Not detected (NOT DETECT) 03/11/25 10:43 Parainfluenza 2 (PCR) Not detected (NOT DETECT) 03/11/25 10:43 Parainfluenza 3 (PCR) Not detected (NOT DETECT) 03/11/25 10:43 Parainfluenza 4 (PCR) Not detected (NOT DETECT) 03/11/25 10:43 RSV (PCR) Negative (Negative) 03/02/25 13:36 RSV Type A (PCR) Not detected (NOT DETECT) 03/11/25 10:43 RSV Type B (PCR) Not detected (NOT DETECT) 03/11/25 10:43 Entero/Rhino (PCR) Not detected (NOT DETECT) 03/11/25 10:43 SARS-CoV-2 (PCR) Not detected (NOT DETECT) 03/11/25 10:43 Anti-Streptolysin O Ab 98 IU/mL (<200) 03/05/25 10:55 Procedures Performed 03/13/2025: Right foot debridement, Charcot deformity Vitals Last Vital Signs Temp 98.0 F 03/13/25 08:00 Pulse 75 03/13/25 08:00 Resp 20 H 03/13/25 08:53 BP 108/73 03/13/25 08:00 Pulse Ox 96 03/13/25 08:53 O2 Del Method Room Air 03/13/25 07:49 O2 Flow Rate 3 03/11/25 20:00 Discharge Plan Discharge Patient Disposition: Xfer SNF Condition: Stable Prescriptions: New furosemide [Lasix] 20 mg tablet 20 mg PO DAILY Qty: 90 0RF lidocaine 5 % Adhesive Patch,Medicated 1 patch topical [id number] Qty: 20 0RF Continued (DME) carbon fiber afo See Rx Instructions .Route .MEDSUPPLY Qty: 1 0RF Rx Instructions: As directed ropinirole 4 mg tablet 8 mg PO BID Qty: 360 1RF aspirin 81 mg tablet,delayed release (DR/EC) 81 mg PO DAILY Qty: 90 1RF atorvastatin [Lipitor] 40 mg tablet 40 mg PO DAILY Qty: 90 1RF clopidogrel 75 mg tablet 75 mg PO DAILY Qty: 90 1RF albuterol sulfate 90 mcg/actuation HFA aerosol inhaler 2 inh INHALATION Q4H PRN (Reason: shortness of breath or wheezing) Qty: 18 11RF fluticasone propionate [Flonase Allergy Relief] 50 mcg/actuation spray,suspension 1 spray intranasal DAILY PRN (Reason: nasal congestion) Qty: 16 11RF Rx Instructions: administer into each nostril (DME) FreeStyle Jenae 2 Sensor Kit See Rx Instructions .MEDSUPPLY Qty: 2 11RF Rx Instructions: Change every 14 days; Use as directed to check blood sugar gabapentin 600 mg tablet 600 mg PO Q8H Qty: 270 1RF insulin lispro [Humalog KwikPen Insulin] 100 unit/mL insulin pen 15 unit SUBCUT TID Qty: 15 2RF insulin glargine [Lantus Solostar U-100 Insulin] 100 unit/mL (3 mL) insulin pen 65 unit SUBCUT BID Qty: 15 2RF (DME) Diabetic shoe with Custom accommodative insoles See Rx Instructions .Route .MEDSUPPLY Qty: 1 0RF Rx Instructions: As directed by [facility] (DME) JAKI lockwood See Rx Instructions .Route .MEDSUPPLY Qty: 1 0RF Rx Instructions: As directed by [facility] losartan 25 mg tablet 12.5 mg PO DAILY Qty: 45 1RF famotidine 40 mg tablet 40 mg PO BID Qty: 180 1RF (DME) FreeStyle Jenae 2 [place] See Rx Instructions .MEDSUPPLY Qty: 1 0RF Rx Instructions: Use as directed to check blood sugar 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 OK for DC: Infectious Disease and Podiatry Discharge Order = DC NOW: Discharge Order (Routine); Ordered 03/13/25 Ordered By: Remy Whelan Other Ambulatory Orders: Miscellaneous Procedure (Order) Location: None Selected Ordered By: Greg Blanco Referrals: [facility]ious Disease Group [facility] [Provider Group, Infectious Disease] - 1 week [facility] [place] [Outside] Noble Day DPM [Physician, Podiatry] - 1 week Ivett Still MD [Primary Care Provider, [facility]] - 03/27/25 11:20 am Discharge Diet: Cardiac and Diabetic Discharge Activity: Limit activity as instructed and As per PT/OT instructions Patient Instructions: Furosemide (By mouth), Lidocaine (On the skin), Linezolid (By mouth), Ertapenem (By injection), Sepsis (DC), Chronic Hypertension (DC), Community Acquired Pneumonia (DC), Altered Mental Status (ED), Hypoxemia (DC), Opioid Safety, Patient Portal & [place] Instructions Activity Restrictions/Additional Instructions: After several days if there is no recurrence of edema and breathing is improving, oxygenation improving, change Lasix to as needed dose in case of edema or worsening dyspnea with exertion or while lying down. Follow-up with your primary provider for reassessment after bronchitis, acute congestive heart failure, acute kidney injury. Follow-up with your primary provider and make an appointment with urology for assessment for complicated recurrent urinary tract infections. Follow-up with your primary provider regarding worsening degenerative changes in your back. Use acetaminophen, heat, cold as needed, lidocaine patch. Follow-up with podiatry with regards to right foot ulcer. half-way instructions: Heel touch or transfers with limited weightbearing on the right foot. Can bear weight on the left foot. Patient will follow-up with podiatry. Patient will continue empiric antibiotic with IV vancomycin until following up with infectious disease. Discharge Attestations Time Spent in Discharge Care*: greater than 30 min Status at Discharge: Cognitive status at discharge: cognitively intact , Behavioral status at discharge: cooperative , Quality Metrics Clinical Quality Measures [ No reported AMI, CVA or VTE this stay] Coding Level of Care Code 03994 Diagnoses Acute kidney injury N17.9
[2025-03-13] MEDS: HYDROmorphone 0.5 MG/0.5 ML INJ 0.4 MG IVP ×2 (11:00→15:49)
--- NOTE | 2025-03-13 14:41 | XR_ITS ---
WS: [id number] Portable AP upright chest, 03/13/2025 Clinical Data: post PICC line Comparison: Portable chest, 03/07/2025 Findings: The left PICC line ends at the caval atrial junction. No pneumothorax is seen. XR/XR chest 1V portable [id number] Impression: Satisfactory insertion of left PICC line.
--- NOTE | 2025-03-13 16:14 | PICC.NOTE ---
PICC Insertion New single lumen PICC placed due was placed in the left arm due to removal of previous right-sided PICC line. Consent was received from patient along with time out done. The procedure was performed using sterile technique. The patient tolerated procedure well with no immediate complications. Post procedure X-ray confirmed catheter tip to be in the cavoatrial junction. The line flushed appropriately with good blood return and was deemed appropriate for use.
== END 2025-03-13 16:30 | disposition skilled nursing facility (03) | DRG 853 ==
LOC: ER 13:38 → CSU 16:29
PROVIDERS: Internal Medicine; Internal Medicine Nephrology; Podiatrist Foot & Ankle Surgery; Student in an Organized Health Care Education/Training Program; Admitting Provider Student in an Organized Health Care Education/Training Program; Emergency Provider Emergency Medicine; PCP Family Medicine; Visit Provider Internal Medicine
PROC: 0QBL0ZZ Excision of Right Tarsal, Open Approach (ICD-10-PCS; principal; 2025-03-13 07:00)
DX: A41.81 Sepsis due to Enterococcus (principal); G93.41 Metabolic encephalopathy; I50.31 Acute diastolic (congestive) heart failure; J18.9 Pneumonia, unspecified organism; N17.9 Acute kidney failure, unspecified; I13.0 Hypertensive heart and chronic kidney disease with heart failure and stage 1 through stage 4 chronic kidney disease, or unspecified chronic kidney disease; E87.1 Hypo-osmolality and hyponatremia; Z16.23 Resistance to quinolones and fluoroquinolones; N12 Tubulo-interstitial nephritis, not specified as acute or chronic; L03.115 Cellulitis of right lower limb; L02.611 Cutaneous abscess of right foot; R65.20 Severe sepsis without septic shock; B95.2 Enterococcus as the cause of diseases classified elsewhere; Z85.51 Personal history of malignant neoplasm of bladder; B96.89 Other specified bacterial agents as the cause of diseases classified elsewhere; G89.29 Other chronic pain; M48.061 Spinal stenosis, lumbar region without neurogenic claudication; M51.369 Other intervertebral disc degeneration, lumbar region without mention of lumbar back pain or lower extremity pain; G47.33 Obstructive sleep apnea (adult) (pediatric); Z79.4 Long term (current) use of insulin; I25.10 Atherosclerotic heart disease of native coronary artery without angina pectoris; Z79.82 Long term (current) use of aspirin; Z82.49 Family history of ischemic heart disease and other diseases of the circulatory system; Z90.49 Acquired absence of other specified parts of digestive tract; Z87.891 Personal history of nicotine dependence; R09.02 Hypoxemia; E78.5 Hyperlipidemia, unspecified; Z99.81 Dependence on supplemental oxygen; K21.9 Gastro-esophageal reflux disease without esophagitis; Z93.6 Other artificial openings of urinary tract status; E66.9 Obesity, unspecified; Z68.29 Body mass index [BMI] 29.0-29.9, adult; K46.9 Unspecified abdominal hernia without obstruction or gangrene; E83.42 Hypomagnesemia; L97.512 Non-pressure chronic ulcer of other part of right foot with fat layer exposed; E11.22 Type 2 diabetes mellitus with diabetic chronic kidney disease; E11.621 Type 2 diabetes mellitus with foot ulcer; E11.51 Type 2 diabetes mellitus with diabetic peripheral angiopathy without gangrene; E11.40 Type 2 diabetes mellitus with diabetic neuropathy, unspecified; E11.610 Type 2 diabetes mellitus with diabetic neuropathic arthropathy; N18.30 Chronic kidney disease, stage 3 unspecified; M25.552 Pain in left hip
CPT/HCPCS: 36415; 36416; 36573; 36600; 71045; 71046; 71250; 72148; 73630; 73700; 74176; 80051; 80053; 80061; 80202; 81001; 82306; 82330; 82436; 82533; 82550; 82805; 82962; 83036; 83605; 83735; 83880; 84100; 84133; 84145; 84300; 84443; 84484; 84550; 85025; 85651; 86038; 86060; 86140; 86160; 86403; 86803; 87040; 87070; 87077; 87086; 87150; 87176; 87186; 87205; 87449; 87486; 87581; 87633; 87637; 93005; 93306; 93312; 93320; 93325; 94640; 94664; 94760; 96365; 96372; 96375; 97110; 97116; 97140; 97162; 97167; 97530; 97535; 99285; J0131; J1171; J1650; J1815; J1938; J1956; J2020; J2185; J2371; J2405; J2543; J2704; J3010; J3373; J3475; J3490; J7030; J7050; J7121; J7613; J9999; P9046; Q3014

== ENCOUNTER → 2025-03-20 07:27 | Outpatient (BNVA) | payer MEDICARE, MEDICAID, SELFPAY | PROVIDERS: PCP Family Medicine; Visit Provider Podiatrist Foot & Ankle Surgery | DX: E11.69 Type 2 diabetes mellitus with other specified complication (principal); Q66.81 Congenital vertical talus deformity, right foot; L97.512 Non-pressure chronic ulcer of other part of right foot with fat layer exposed; E11.40 Type 2 diabetes mellitus with diabetic neuropathy, unspecified; E11.621 Type 2 diabetes mellitus with foot ulcer; Z79.4 Long term (current) use of insulin | CPT/HCPCS: 99213 ==